=== PATIENT | male | born 1945 | race Caucasian/White ===

== ENCOUNTER → 2016-08-01 | Outpatient (CLI) | payer OTHER ==
[~2016-08-01] MED LIST: AMLO2.5T PO; ASCA500 PO; ASPEC81 PO; HYDR25TA5 PO; MULT-506 PO; NTRGSL/4 UT; PLV75 PO; ROSU40TA PO; TPRSR/100 PO; TRIA1SPR2 NAE; TRMCR515 TOP
[2016-08-01 12:42] LABS: BASO % 0.8 %; BASO ABS # 0.05 K/uL (0-0.2); COMPLETE YES; EOS % 6.7 %; HEMATOCRIT 45.2 % (42-52); IG% 0.3 %; LYMPH % 30.2 %; LYMPH ABS # 1.95 K/uL (1.2-3.4); MEAN CELL VOLUME 90.2 fL (80-100); MEAN CORPUSCULAR HEMOGLOBIN 29.5 pg (25-34); MEAN CORPUSCULAR HGB CONC 32.7 g/dl (32-36); MEAN PLATELET VOLUME 9.8 fL (7.4-10.4); MONO % 11.9 %; NEUT % 50.1 %; PLATELET COUNT 183 K/uL (130-400); RED BLOOD COUNT 5.01 M/uL (4.7-6.1); WHITE BLOOD COUNT 6.46 K/uL (4.8-10.8)
[2016-08-01 13:34] LABS: ALT/SGPT 33 U/L (12-78); AST/SGOT 20 U/L (15-37); BLOOD UREA NITROGEN 13 mg/dl (7-18); BUN/CREATININE RATIO 13.7 (10-20); CALCIUM 8.8 mg/dl (8.5-10.1); CARBON DIOXIDE 31 mmol/L (21-32); CHLORIDE 105 mmol/L (98-107); CREATININE 0.92 mg/dl (0.60-1.40); GLUCOSE 98 mg/dl (70-99); POTASSIUM 3.7 mmol/L (3.5-5.1); SODIUM 142 mmol/L (136-145)
[2016-08-01 13:37] LABS: ALB/GLOB RATIO 1.2 (0.9-2); ALKALINE PHOSPHATASE 61 U/L (45-117); CHOLESTEROL 161 mg/dl (0-200); CHOLESTEROL/HDL RATIO 3.7; HDL CHOLESTEROL 43 mg/dl; LDL CHOLESTEROL CALCULATED 74 mg/dl; TRIGLYCERIDES 218 mg/dl (0-150); VERY LOW DENSITY LIPOPROT CALC 44 mg/dl
--- NOTE | 2016-08-08 12:41 | CODING QUERY MEDICAL NECESSITY ---
SUPPORTING DIAGNOSIS NEEDED A supporting diagnosis is required for the test/procedure performed on this patient in order for us to be reimbursed by the patient's insurance. Please provide a supporting diagnosis for the following test/procedure listed below next to the test name along with your signature. *If there is no additional diagnosis for this patient that would support the following test/procedure please document that below next to the test/procedure. Test(s)/Procedure(s) that require a supporting diagnosis: DOS 08/01 * Vitamin D DIAGNOSIS: Provider Signature: Date: Thank you Luciana Clements [facility] Information Management Once completed, please kindly fax back to [phone] For questions please call [phone]
== END | disposition home or self-care (01) ==
LOC: C.LABPBG 10:22
PROVIDERS: ATTEND Internal Medicine Geriatric Medicine
DX: I10 Essential (primary) hypertension (principal); I25.10 Atherosclerotic heart disease of native coronary artery without angina pectoris; E78.5 Hyperlipidemia, unspecified

== ENCOUNTER → 2017-08-10 | Outpatient (CLI) | payer OTHER ==
[~2017-08-10] MED LIST changes: -ASPEC81 PO; +ASPI-320 PO
[2017-08-10 17:17] LABS: BASO % 0.4 %; BASO ABS # 0.03 K/uL (0-0.2); EOS % 4.9 %; EOS ABS # 0.34 K/uL (0-0.5); HEMATOCRIT 45.8 % (42-52); HEMOGLOBIN 15.3 g/dL (14.0-18.0); IG# 0.02 K/uL (0.00-0.02); LYMPH % 26.7 %; LYMPH ABS # 1.84 K/uL (1.2-3.4); MEAN CELL VOLUME 90.3 fL (80-100); MEAN CORPUSCULAR HEMOGLOBIN 30.2 pg (25-34); MEAN CORPUSCULAR HGB CONC 33.4 g/dl (32-36); MEAN PLATELET VOLUME 9.5 fL (7.4-10.4); MONO % 8.9 %; MONO ABS # 0.61 K/uL (0.11-0.59); NEUT % 58.8 %; NEUT ABS # 4.05 K/uL (1.4-6.5); PLATELET COUNT 174 K/uL (130-400); RED CELL DISTRIBUTION WIDTH CV 14.1 % (11.5-14.5); RED CELL DISTRIBUTION WIDTH SD 46.1 fL (36.4-46.3); WHITE BLOOD COUNT 6.89 K/uL (4.8-10.8)
[2017-08-10 17:40] LABS: BLOOD UREA NITROGEN 17 mg/dl (7-18); CREATININE 1.02 mg/dl (0.60-1.40); GLUCOSE 104 mg/dl (70-99)
[2017-08-10 17:41] LABS: ALBUMIN 4.2 gm/dl (3.4-5.0); ALT/SGPT 39 U/L (12-78); AST/SGOT 32 U/L (15-37); CALCIUM 9.1 mg/dl (8.5-10.1); CARBON DIOXIDE 30 mmol/L (21-32); CHOLESTEROL 140 mg/dl (0-200); POTASSIUM 3.7 mmol/L (3.5-5.1); SODIUM 139 mmol/L (136-145)
[2017-08-10 17:50] LABS: ALKALINE PHOSPHATASE 61 U/L (45-117); LDL CHOLESTEROL CALCULATED 65 mg/dl; TOTAL PROTEIN 7.7 gm/dl (6.4-8.2)
== END | disposition home or self-care (01) ==
LOC: C.LABPBG 12:08
PROVIDERS: ATTEND Internal Medicine Geriatric Medicine
DX: I10 Essential (primary) hypertension (principal); I25.10 Atherosclerotic heart disease of native coronary artery without angina pectoris; E78.5 Hyperlipidemia, unspecified

== ENCOUNTER 2021-11-21 08:50 | Inpatient (IN) ==
[2021-11-21] MEDS ORDERED: SODIUM CHLORIDE 0.9% 1000ML 1,000 ML IV ONE (09:19)
--- NOTE | 2021-11-21 09:20 | Emergency Department Note ---
Impression & Plan Febrile neutropenia, Pancytopenia, Severe thrombocytopenia ED Provider Note Name: ELIAZAR JOYCE Age: 76 Sex: M Arrives Via: Walk-In Informant: Patient, ED Provider: Rommel Queen MD Chief Complaint: Illness Impression: As per impressions above Medical Decision Makin-year-old gentleman with a history of hypertension, CAD, dyslipidemia who has had previous CABG and stenting arrives for evaluation of febrile illness. Patient with 10 days of illness including fevers, chills, weakness fatigue. He reportedly tested positive on a home COVID test by 4 days ago. Evaluation patient appears mildly dehydrated tired a bit tachycardic but other johnson appears well. Pressures are good. He is not in any way meningitic and is answering all questions without problem. Labs obtained along with a COVID swab. Chest x-ray is unremarkable. Labs returned with severe pancytopenia of low white count, low hemoglobin and thrombocytopenia. This is acutely new from June 2021. At this point patient has febrile neutropenia and thus blood cultures were obtained. He had already had lactic acid obtained. He was given empiric cefepime. Tickborne illness swabs were obtained and he has a initial report no evidence Babesia or anaplasmosis and his Lyme testing is negative here. Patient was given some initial IV fluids with improvement in how he is feeling. Patient had taken Tylenol prior to arrival. With the unusual findings and there was concern for tick exposure doxycycline was added to his antibiotics. Throughout his blood pressure remained stable and his initial lactic acid was normal. He has no abdominal pain, chest pain, urinary symptoms or any other concerning findings. There is no clear evidence of septic shock. I had multiple prolonged discussions with the [facility] hospitalist who requested I discussed with [place]. I discussed case at length with [facility] who have accepted the patient however they note there will be no beds until tomorrow. They did request that I start a transf usion of platelets along with getting B12 and folic acid testing. Further discussion with hospitalist and still uncomfortable bringing patient in here. Discussed this with our oncologist here who requested I attempt to get the patient to [place]. I discussed this with the patient and makes it clear he will not be going to [place] or [facility] and that he is fully understanding that he could have severe outcomes or even if he were to stay here and to get worse. At this point I further discussed with the oncologist here as well as the hospitalist here and the plan will be to bring in for monitoring. I have confirmed again with [facility] that and will be until tomorrow before we get a bed as well as I have confirmed that by admitting him here it well in no way change his place "in line" at [facility] while awaiting this bed. I do think this is the right thing to do as patient is a febrile neutropenic patient and keeping him in the ER with multiple ER docs seeing him every few hours and the multitude of sick patients in the area I think would be risky to leave him down here. I had many discussions with the patient and his throughout their stay keeping them abreast of the findings. It is unclear exactly where this is primarily just an acute leukemia or whether his possible COVID last week incited this event. Prior Medical Record and Triage/Nursing Notes reviewed by Me Additional history obtained from chart and Differentials:Viral syndrome, otitis, pharyngitis, pneumonia, influenza, meningitis, urinary tract infection, sepsis, bacteremia, as well as other pathologies. Vital Signs: reviewed and remarkable for fever Interventions: NSS bolus, 1 Unit Platelets, Cefepime 2gm iv, doxycycline 100mg iv, tylenol 1gm po Labs:Reviewed and remarkable for pancytopenia Imaging:X ray results are stated below per my interpretation: Chest: 1 view: No infiltrate, no effusion, normal cardiac border. Cardiac/Tele Monitoring: Cardiac Monitoring: An Order was placed for continuous cardiac monitoring. The monitor shows a rate of 80 with a normal sinus rhythm. Consults:Dr Cecy COMER Hospitalist, Dr Jeremie COMER Oncology, Dr Nicho blue [facility], Dr Emiliano You [facility] Plan: Disposition:Hospitalization pending transfer Condition: Good History of Present Illness:76 yr old male arrives for evaluation of illness. Patient notes that he is having worsening weakness and illness over the last 10 days. Became sick 10 days ago with fevers, chills, mild cough, body aches and fatigue. Worsening lack of appetite. Mild associated sore throat. Notes severe weakness at times when he gets up. Better with resting. States he has been eating well. Did test positive for COVID 4 days ago. This was a home test done by his . Denies any syncope, shortness of breath, chest pain, abdominal pain, back pain, urinary/bowel symptoms, leg swelling, rashes nor other symptoms. Worse with exertion better with rest. Used Tylenol this morning with some improvement. ROS: See above HPI for pertinent positives & negatives. A total of 10 systems reviewed and were otherwise negative. Past Medical History:See Below Past Surgical History:See Below Family History:See Below Social History:See Below Home Medications:See Below Allergies:See Below Vitals:Blood Pressure: 106/66, Pulse 102, RR 18, T 38.0C, O2 74% on RA Physical Exam: GENERAL: Patient is tired/dehydrated appearing and in mild distress. EYES: No scleral icterus, unremarkable pupils. ENT: Mucous membranes dry, no nasal congestion. NECK: No masses appreciated, nomeningismus, trachea is midline. RESPIRATORY: No dyspnea. Clear to auscultation and equal bilaterally. No wheeze, no rhonchi. CARDIOVASCULAR: Tachy.No murmurs, rubs, gallops appreciated. GASTROINTESTINAL: Abdomen soft, non-tender, no peritonitis.Bowel sounds positive.No masses appreciated. BACK: No midline tenderness, no CVA tenderness EXTREMITIES: Normal motion all extremities, no cyanosis, no edema. NEUROLOGIC: Alert and oriented, no acute motor or sensory deficits, no focal weakness, cranial nerves grossly intact. SKIN: No rash, no jaundice, no diaphoresis. PSYCH: Appropriate GCS: 15 ED Course: Times/Reassessments: Many repeat evaluations and patient is feeling better after some IV fluids. Critical Care: I have personally spent 90 minutes of critical care time in the direct management of this patient. Acute febrile neutropenia with diffuse pancytopenia requiring extensive discussions with many different providers. This was a life/limb threatening event. This 90 minutes is in excess of all separately billable procedures. Rommel Queen MD Past Med/Surg History Medical History Aortic stenosis Arteriosclerotic coronary artery disease Benign enlargement of prostate Carotid artery plaque Dyslipidemia Hypertension Past myocardial infarction Tubulovillous adenoma of colon Surgical History History of cardiac cath cath stent 1 first obtuse marginal branch, type bare metal cath stent 2 first saphenous vein graft, type drug-eluting History of colonoscopy History of coronary artery bypass graft x 3 History of hemorrhoidectomy S/P CABG x 3 Family History Brother Coronary heart disease 5 brothers Father Myocardial infarction Denies family history of Ovarian cancer Prostate cancer Breast cancer Colorectal cancer Lung disease Social History Smoking Status: Former smoker Tobacco Type: Cigarettes Age Started Using Tobacco: 14; Age Quit Using Tobacco: 21; packs per day: 1; Years Smoked: 7; Second Hand Exposure: No; Hx Alcohol Use: Yes Alcohol type: wine Alcohol Intake Frequency Comment: once a day Hx Substance Use: No Preferred Language: Syriac Communication Ability: Effective Visual Impairment: Limited Hearing Ability: Use of Hearing Aid Piece Meat 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 Required: No marital status: Current Living Situation: Spouse current occupational status: employed 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 How many Children do You have: 4 Feels Safe at Home: Yes Childhood Exposure to Second-Hand Smoke: No caffeine: Yes (cup of coffee in morning ) Dental Care, Regularly: No Physical Activity Frequency: Daily Seatbelt Use: always Sunscreen Use: Yes Allergies Allergies Allergy/AdvReac Type Severity Reaction Status Date / Time diphenhydramine AdvReac Severe ITCHING Verified 11/21/21 18:14 [From Benadryl] lisinopril AdvReac Mild FATIGUE Verified 11/21/21 18:14 losartan AdvReac Unknown FATIGUE, Verified 11/21/21 18:14 CHEST PAIN acetaminophen [From Percocet] AdvReac Confusion Verified 11/21/21 18:14 oxycodone [From Percocet] AdvReac Confusion Verified 11/21/21 18:14 Home Meds Home Medications Medication Instructions Recorded Confirmed ascorbic acid (vitamin C) 500 mg 500 mg PO DAILY 02/11/19 11/21/21 tablet aspirin 81 mg tablet,delayed 81 mg PO DAILY 02/11/19 11/21/21 release nitroglycerin 0.4 mg sublingual 0.4 mg sublingual Q5M PRN Chest 02/11/19 11/21/21 tablet Pain #1 tab clopidogrel 75 mg tablet 75 mg PO DAILY 11/21/21 11/21/21 multivitamin 1 tab PO DAILY 11/21/21 11/21/21 Previous Rx's Medication Instructions Recorded sildenafil 100 mg tablet 100 mg PO DAILY PRN sexual 11/08/20 activity #10 tabs amlodipine 10 mg tablet 10 mg PO DAILY #90 tabs 12/09/20 hydrochlorothiazide 25 mg tablet 25 mg PO DAILY #90 tabs 04/27/21 rosuvastatin 40 mg tablet 40 mg PO DAILY #90 tabs 05/31/21 metoprolol succinate 100 mg 150 mg PO DAILY #135 tabs 07/20/21 tablet,extended release 24 hr Results & Data (ED) Vital Signs Vital Signs - 24 hr 11/21/21 08:53 11/21/21 09:31 11/21/21 10:25 Temperature 38.0 C H Temperature Source Oral Pulse Rate 102 H Pulse Rate [Finger] 75 Pulse Rhythm [Finger] Respiratory Rate 18 18 Respiratory Depth Blood Pressure 106/66 Blood Pressure [Left Arm] 117/58 L Blood Pressure Mean 79 Blood Pressure Mean [Left Arm] 77 Pulse Oximetry 94 94 94 Oxygen Delivery Method Room Air Room Air Room Air Sepsis Recent Fever Within 48 Hours Yes Sepsis New/Unexplained Change in Mental Status No Sepsis Action Taken by Nursing No Action Required 11/21/21 12:54 11/21/21 13:57 11/21/21 14:51 Temperature Temperature Source Pulse Rate Pulse Rate [Finger] 79 84 87 Pulse Rhythm [Finger] Respiratory Rate 24 24 24 Respiratory Depth Blood Pressure Blood Pressure [Left Arm] 128/68 140/70 129/74 Blood Pressure Mean Blood Pressure Mean [Left Arm] 88 93 92 Pulse Oximetry 93 93 93 Oxygen Delivery Method Room Air Room Air Room Air Sepsis Recent Fever Within 48 Hours Sepsis New/Unexplained Change in Mental Status Sepsis Action Taken by Nursing 11/21/21 15:21 11/21/21 15:26 11/21/21 16:26 Temperature 38.2 C H 38.1 C H Temperature Source Oral Oral Pulse Rate 87 85 86 Pulse Rate [Finger] Pulse Rhythm [Finger] Respiratory Rate 25 H 25 H 16 Respiratory Depth Blood Pressure 128/65 128/65 121/71 Blood Pressure [Left Arm] Blood Pressure Mean 86 86 87 Blood Pressure Mean [Left Arm] Pulse Oximetry 94 93 95 Oxygen Delivery Method Sepsis Recent Fever Within 48 Hours Sepsis New/Unexplained Change in Mental Status Sepsis Action Taken by Nursing 11/21/21 16:27 11/21/21 18:43 08/08/22 19:38 Temperature 37.6 C H Temperature Source Oral Pulse Rate Pulse Rate [Finger] 85 69 Pulse Rhythm [Finger] Regular Regular Respiratory Rate 18 73 H 15 Respiratory Depth Normal Normal Normal Blood Pressure Blood Pressure [Left Arm] 125/65 Blood Pressure Mean Blood Pressure Mean [Left Arm] 85 Pulse Oximetry 100 91 Oxygen Delivery Method Room Air Room Air Sepsis Recent Fever Within 48 Hours Sepsis New/Unexplained Change in Mental Status Sepsis Action Taken by Nursing Laboratory Data Result diagrams: 11/21/21 09:30 11/21/21 09:30 Lab Results 11/21/21 11/21/21 11/21/21 Range/Units 09:30 09:30 09:30 WBC 0.76 L* (4.8-10.8) K/ul RBC 3.42 L (4.63-6.08) M/uL Hgb 10.5 L (14.0-18.0) g/dl Hct 30.2 L (40.1-51.0) % MCV 88.3 (80.0-100.0) fL MCH 30.7 (25.0-34.0) pg MCHC 34.8 (32.0-36.0) g/dL RDW Std Deviation 50.2 H (36.4-46.3) fL RDW Coeff of Marty 15.8 H (11.5-14.5) % Plt Count 8 L* (130-400) K/uL MPV 12.0 (9.4-12.4) fL Neutrophils % (Manual) 6 % Lymphocytes % (Manual) 83 % Monocytes % (Manual) 1 % Eosinophils % (Manual) 4 % Blast Cells % (Manual) 6 % Neutrophils # (Manual) 0.05 L (1.4-6.5) K/uL Total Absolute Neuts 0.05 L* (1.4-6.5) K/uL Lymphocytes # (Manual) 0.63 L (1.2-3.4) K/uL Total Abs Lymphocytes 0.63 L (1.2-3.4) K/uL Monocytes # (Manual) 0.01 L (0.24-0.82) K/uL Eosinophils # (Manual) 0.03 (0-0.50) K/uL Blast Cells # (Man) 0.05 H (0-0) K/uL Blood Smear Review PT (9.0-12.0) Seconds INR (0.9-1.1) Fibrinogen (184-400) mg/dl Sodium 134 L (136-145) mmol/L Potassium 4.1 (3.5-5.1) mmol/L Chloride 101 (98-107) mmol/L Carbon Dioxide 27 (21-32) mmol/L Anion Gap 6 (3-11) BUN 14 (6-23) mg/dl Creatinine 1.00 (0.6-1.4) mg/dl Est Cr Clr Drug Dosing 64.6 ml/min Est GFR ( Amer) 83.2 ml/min Est GFR (Non-Af Amer) 71.8 ml/min BUN/Creatinine Ratio 14.0 (10-20) Glucose 111 H (70-99(Fasting)) mg/dl Lactate 1.0 (0.4-2.0) mmol/L Calcium 8.6 (8.5-10.1) mg/dl Magnesium 2.2 (1.7-2.4) mg/dl Ferritin (8-388) ng/ml Total Bilirubin 1.3 H (0.2-1.0) mg/dl Direct Bilirubin 0.3 H (0-0.2) mg/dl AST 60 H (13-39) U/L ALT 28 (7-52) U/L Alkaline Phosphatase 47 (34-104) U/L Lactate Dehydrogenase (86-244) U/L Troponin I High Sens 9.6 (0-20) pg/ml Total Protein 6.7 (6.0-8.3) gm/dl Albumin 3.7 (3.4-5.0) gm/dl Vitamin B12 (180-914) pg/ml Folate (>5.38) ng/ml Procalcitonin (0-0.5) ng/ml Urine Color Urine Appearance (Clear) Urine pH (4.5-7.5) Ur Specific [place] (1.000-1.030) Urine Protein (Negative) Urine Glucose (UA) (Negative) Urine Ketones (Negative) Urine Blood (Negative) Urine Nitrite (Negative) Urine Bilirubin (Negative) Urine Urobilinogen (Negative) Ur Leukocyte Esterase (Negative) Urine WBC (Auto) (0-5) /hpf Urine RBC (Auto) (0-4) /hpf U Hyaline Cast (Auto) (0-5) /lpf U Epithel Cells (Auto) (0-5) /lpf Urine Bacteria (Auto) (Negative) Ur Renal Epithelial Cell Anaplasma Smear See Comment Babesia Smear Lyme Disease IgG Ab (Negative) Lyme Disease IgM Ab (Negative) SARS-CoV-2 (PCR) (Negative) SARS-CoV-2, RNA, NAAT (NEGATIVE) Blood Type Antibody Screen 11/21/21 11/21/21 11/21/21 Range/Units 09:30 09:30 09:30 WBC (4.8-10.8) K/ul RBC (4.63-6.08) M/uL Hgb (14.0-18.0) g/dl Hct (40.1-51.0) % MCV (80.0-100.0) fL MCH (25.0-34.0) pg MCHC (32.0-36.0) g/dL RDW Std Deviation (36.4-46.3) fL RDW Coeff of Marty (11.5-14.5) % Plt Count (130-400) K/uL MPV (9.4-12.4) fL Neutrophils % (Manual) % Lymphocytes % (Manual) % Monocytes % (Manual) % Eosinophils % (Manual) % Blast Cells % (Manual) % Neutrophils # (Manual) (1.4-6.5) K/uL Total Absolute Neuts (1.4-6.5) K/uL Lymphocytes # (Manual) (1.2-3.4) K/uL Total Abs Lymphocytes (1.2-3.4) K/uL Monocytes # (Manual) (0.24-0.82) K/uL Eosinophils # (Manual) (0-0.50) K/uL Blast Cells # (Man) (0-0) K/uL Blood Smear Review PT (9.0-12.0) Seconds INR (0.9-1.1) Fibrinogen (184-400) mg/dl Sodium (136-145) mmol/L Potassium (3.5-5.1) mmol/L Chloride (98-107) mmol/L Carbon Dioxide (21-32) mmol/L Anion Gap (3-11) BUN (6-23) mg/dl Creatinine (0.6-1.4) mg/dl Est Cr Clr Drug Dosing ml/min Est GFR ( Amer) ml/min Est GFR (Non-Af Amer) ml/min BUN/Creatinine Ratio (10-20) Glucose (70-99(Fasting)) mg/dl Lactate (0.4-2.0) mmol/L Calcium (8.5-10.1) mg/dl Magnesium (1.7-2.4) mg/dl Ferritin (8-388) ng/ml Total Bilirubin (0.2-1.0) mg/dl Direct Bilirubin (0-0.2) mg/dl AST (13-39) U/L ALT (7-52) U/L Alkaline Phosphatase (34-104) U/L Lactate Dehydrogenase (86-244) U/L Troponin I High Sens (0-20) pg/ml Total Protein (6.0-8.3) gm/dl Albumin (3.4-5.0) gm/dl Vitamin B12 (180-914) pg/ml Folate (>5.38) ng/ml Procalcitonin 0.34 (0-0.5) ng/ml Urine Color Dark Yellow Urine Appearance Clear (Clear) Urine pH 8.0 H (4.5-7.5) Ur Specific [place] 1.024 (1.000-1.030) Urine Protein 2+ H (Negative) Urine Glucose (UA) Negative (Negative) Urine Ketones Trace H (Negative) Urine Blood Negative (Negative) Urine Nitrite Negative (Negative) Urine Bilirubin Negative (Negative) Urine Urobilinogen Positive H (Negative) Ur Leukocyte Esterase Negative (Negative) Urine WBC (Auto) 1-5 (0-5) /hpf Urine RBC (Auto) 5-10 H (0-4) /hpf U Hyaline Cast (Auto) 1-5 (0-5) /lpf U Epithel Cells (Auto) >30 H (0-5) /lpf Urine Bacteria (Auto) Negative (Negative) Ur Renal Epithelial Cell Not Reportable Anaplasma Smear Babesia Smear Lyme Disease IgG Ab (Negative) Lyme Disease IgM Ab (Negative) SARS-CoV-2 (PCR) NEGATIVE (Negative) SARS-CoV-2, RNA, NAAT (NEGATIVE) Blood Type Antibody Screen 11/21/21 11/21/21 11/21/21 Range/Units 09:30 09:30 13:35 WBC (4.8-10.8) K/ul RBC (4.63-6.08) M/uL Hgb (14.0-18.0) g/dl Hct (40.1-51.0) % MCV (80.0-100.0) fL MCH (25.0-34.0) pg MCHC (32.0-36.0) g/dL RDW Std Deviation (36.4-46.3) fL RDW Coeff of Marty (11.5-14.5) % Plt Count (130-400) K/uL MPV (9.4-12.4) fL Neutrophils % (Manual) % Lymphocytes % (Manual) % Monocytes % (Manual) % Eosinophils % (Manual) % Blast Cells % (Manual) % Neutrophils # (Manual) (1.4-6.5) K/uL Total Absolute Neuts (1.4-6.5) K/uL Lymphocytes # (Manual) (1.2-3.4) K/uL Total Abs Lymphocytes (1.2-3.4) K/uL Monocytes # (Manual) (0.24-0.82) K/uL Eosinophils # (Manual) (0-0.50) K/uL Blast Cells # (Man) (0-0) K/uL Blood Smear Review PT (9.0-12.0) Seconds INR (0.9-1.1) Fibrinogen (184-400) mg/dl Sodium (136-145) mmol/L Potassium (3.5-5.1) mmol/L Chloride (98-107) mmol/L Carbon Dioxide (21-32) mmol/L Anion Gap (3-11) BUN (6-23) mg/dl Creatinine (0.6-1.4) mg/dl Est Cr Clr Drug Dosing ml/min Est GFR ( Amer) ml/min Est GFR (Non-Af Amer) ml/min BUN/Creatinine Ratio (10-20) Glucose (70-99(Fasting)) mg/dl Lactate (0.4-2.0) mmol/L Calcium (8.5-10.1) mg/dl Magnesium (1.7-2.4) mg/dl Ferritin (8-388) ng/ml Total Bilirubin (0.2-1.0) mg/dl Direct Bilirubin (0-0.2) mg/dl AST (13-39) U/L ALT (7-52) U/L Alkaline Phosphatase (34-104) U/L Lactate Dehydrogenase (86-244) U/L Troponin I High Sens (0-20) pg/ml Total Protein (6.0-8.3) gm/dl Albumin (3.4-5.0) gm/dl Vitamin B12 (180-914) pg/ml Folate (>5.38) ng/ml Procalcitonin (0-0.5) ng/ml Urine Color Urine Appearance (Clear) Urine pH (4.5-7.5) Ur Specific [place] (1.000-1.030) Urine Protein (Negative) Urine Glucose (UA) (Negative) Urine Ketones (Negative) Urine Blood (Negative) Urine Nitrite (Negative) Urine Bilirubin (Negative) Urine Urobilinogen (Negative) Ur Leukocyte Esterase (Negative) Urine WBC (Auto) (0-5) /hpf Urine RBC (Auto) (0-4) /hpf U Hyaline Cast (Auto) (0-5) /lpf U Epithel Cells (Auto) (0-5) /lpf Urine Bacteria (Auto) (Negative) Ur Renal Epithelial Cell Anaplasma Smear Cancelled Babesia Smear Lyme Disease IgG Ab Negative (Negative) Lyme Disease IgM Ab Negative (Negative) SARS-CoV-2 (PCR) (Negative) SARS-CoV-2, RNA, NAAT NEGATIVE (NEGATIVE) Blood Type Antibody Screen 11/21/21 11/21/21 11/21/21 Range/Units 13:51 13:51 13:51 WBC (4.8-10.8) K/ul RBC (4.63-6.08) M/uL Hgb (14.0-18.0) g/dl Hct (40.1-51.0) % MCV (80.0-100.0) fL MCH (25.0-34.0) pg MCHC (32.0-36.0) g/dL RDW Std Deviation (36.4-46.3) fL RDW Coeff of Marty (11.5-14.5) % Plt Count (130-400) K/uL MPV (9.4-12.4) fL Neutrophils % (Manual) % Lymphocytes % (Manual) % Monocytes % (Manual) % Eosinophils % (Manual) % Blast Cells % (Manual) % Neutrophils # (Manual) (1.4-6.5) K/uL Total Absolute Neuts (1.4-6.5) K/uL Lymphocytes # (Manual) (1.2-3.4) K/uL Total Abs Lymphocytes (1.2-3.4) K/uL Monocytes # (Manual) (0.24-0.82) K/uL Eosinophils # (Manual) (0-0.50) K/uL Blast Cells # (Man) (0-0) K/uL Blood Smear Review PT (9.0-12.0) Seconds INR (0.9-1.1) Fibrinogen (184-400) mg/dl Sodium (136-145) mmol/L Potassium (3.5-5.1) mmol/L Chloride (98-107) mmol/L Carbon Dioxide (21-32) mmol/L Anion Gap (3-11) BUN (6-23) mg/dl Creatinine (0.6-1.4) mg/dl Est Cr Clr Drug Dosing ml/min Est GFR ( Amer) ml/min Est GFR (Non-Af Amer) ml/min BUN/Creatinine Ratio (10-20) Glucose (70-99(Fasting)) mg/dl Lactate (0.4-2.0) mmol/L Calcium (8.5-10.1) mg/dl Magnesium (1.7-2.4) mg/dl Ferritin (8-388) ng/ml Total Bilirubin (0.2-1.0) mg/dl Direct Bilirubin (0-0.2) mg/dl AST (13-39) U/L ALT (7-52) U/L Alkaline Phosphatase (34-104) U/L Lactate Dehydrogenase (86-244) U/L Troponin I High Sens (0-20) pg/ml Total Protein (6.0-8.3) gm/dl Albumin (3.4-5.0) gm/dl Vitamin B12 167 L (180-914) pg/ml Folate > 22.30 (>5.38) ng/ml Procalcitonin (0-0.5) ng/ml Urine Color Urine Appearance (Clear) Urine pH (4.5-7.5) Ur Specific [place] (1.000-1.030) Urine Protein (Negative) Urine Glucose (UA) (Negative) Urine Ketones (Negative) Urine Blood (Negative) Urine Nitrite (Negative) Urine Bilirubin (Negative) Urine Urobilinogen (Negative) Ur Leukocyte Esterase (Negative) Urine WBC (Auto) (0-5) /hpf Urine RBC (Auto) (0-4) /hpf U Hyaline Cast (Auto) (0-5) /lpf U Epithel Cells (Auto) (0-5) /lpf Urine Bacteria (Auto) (Negative) Ur Renal Epithelial Cell Anaplasma Smear See Comment Babesia Smear See Comment Lyme Disease IgG Ab (Negative) Lyme Disease IgM Ab (Negative) SARS-CoV-2 (PCR) (Negative) SARS-CoV-2, RNA, NAAT (NEGATIVE) Blood Type A Positive Antibody Screen NEGATIVE 11/21/21 11/21/21 11/21/21 Range/Units 17:30 17:30 17:30 WBC (4.8-10.8) K/ul RBC (4.63-6.08) M/uL Hgb (14.0-18.0) g/dl Hct (40.1-51.0) % MCV (80.0-100.0) fL MCH (25.0-34.0) pg MCHC (32.0-36.0) g/dL RDW Std Deviation (36.4-46.3) fL RDW Coeff of Marty (11.5-14.5) % Plt Count (130-400) K/uL MPV (9.4-12.4) fL Neutrophils % (Manual) % Lymphocytes % (Manual) % Monocytes % (Manual) % Eosinophils % (Manual) % Blast Cells % (Manual) % Neutrophils # (Manual) (1.4-6.5) K/uL Total Absolute Neuts (1.4-6.5) K/uL Lymphocytes # (Manual) (1.2-3.4) K/uL Total Abs Lymphocytes (1.2-3.4) K/uL Monocytes # (Manual) (0.24-0.82) K/uL Eosinophils # (Manual) (0-0.50) K/uL Blast Cells # (Man) (0-0) K/uL Blood Smear Review PT 12.4 H (9.0-12.0) Seconds INR 1.2 H (0.9-1.1) Fibrinogen 235 (184-400) mg/dl Sodium (136-145) mmol/L Potassium (3.5-5.1) mmol/L Chloride (98-107) mmol/L Carbon Dioxide (21-32) mmol/L Anion Gap (3-11) BUN (6-23) mg/dl Creatinine (0.6-1.4) mg/dl Est Cr Clr Drug Dosing ml/min Est GFR ( Amer) ml/min Est GFR (Non-Af Amer) ml/min BUN/Creatinine Ratio (10-20) Glucose (70-99(Fasting)) mg/dl Lactate (0.4-2.0) mmol/L Calcium (8.5-10.1) mg/dl Magnesium (1.7-2.4) mg/dl Ferritin 5725.0 H (8-388) ng/ml Total Bilirubin (0.2-1.0) mg/dl Direct Bilirubin (0-0.2) mg/dl AST (13-39) U/L ALT (7-52) U/L Alkaline Phosphatase (34-104) U/L Lactate Dehydrogenase 759 H (86-244) U/L Troponin I High Sens (0-20) pg/ml Total Protein (6.0-8.3) gm/dl Albumin (3.4-5.0) gm/dl Vitamin B12 (180-914) pg/ml Folate (>5.38) ng/ml Procalcitonin (0-0.5) ng/ml Urine Color Urine Appearance (Clear) Urine pH (4.5-7.5) Ur Specific [place] (1.000-1.030) Urine Protein (Negative) Urine Glucose (UA) (Negative) Urine Ketones (Negative) Urine Blood (Negative) Urine Nitrite (Negative) Urine Bilirubin (Negative) Urine Urobilinogen (Negative) Ur Leukocyte Esterase (Negative) Urine WBC (Auto) (0-5) /hpf Urine RBC (Auto) (0-4) /hpf U Hyaline Cast (Auto) (0-5) /lpf U Epithel Cells (Auto) (0-5) /lpf Urine Bacteria (Auto) (Negative) Ur Renal Epithelial Cell Anaplasma Smear Babesia Smear Lyme Disease IgG Ab (Negative) Lyme Disease IgM Ab (Negative) SARS-CoV-2 (PCR) (Negative) SARS-CoV-2, RNA, NAAT (NEGATIVE) Blood Type Antibody Screen Administered Medications Cefepime HCl 2,000 mg/ Syringe 20 mls @ 5 mls/min IV Q8H [facility]; Protocol Stop: 11/23/21 18:59 Last Admin: 11/21/21 18:06 Dose: 5 mls/min Documented By: KAY Discontinued Medications Acetaminophen (Acetaminophen 500 Mg Tab) 1,000 mg PO NOW STA Stop: 11/21/21 17:39 Last Admin: 11/21/21 18:06 Dose: 1,000 mg Documented By: LEEANNAW Sodium Chloride (Nss 1000ml) 1,000 mls @ 999 mls/hr IV .Q1H1M ONE Stop: 11/21/21 10:19 Last Infusion: 11/21/21 10:26 Dose: 0 mls/hr Documented By: Admin: 11/21/21 09:35 Dose: 999 mls/hr Documented By: KRYSTAL Cefepime HCl (Maxipime) 2,000 mg in 20 mls @ 5 mls/min IV NOW STA; Protocol Stop: 11/21/21 10:50 Last Admin: 11/21/21 11:00 Dose: 5 mls/min Documented By: KRYSTAL Doxycycline Hyclate 100 mg/ (Dextrose) 110 mls @ 50 mls/hr IV NOW STA Stop: 11/21/21 14:53 Last Infusion: 11/21/21 17:40 Dose: 0 mls/hr Documented By: Admin: 11/21/21 13:56 Dose: 50 mls/hr Documented By: KRYSTAL Imaging Data Radiologist's Impression: Chest X-Ray 11/21/21 09:19 XR chest 1V portable CLINICAL HISTORY: cough fever x 10 days TECHNIQUE: Single frontal radiograph of the chest was obtained. Comparison: Comparison is made to chest radiograph 09/10/2006 FINDINGS: Median sternotomy wires are unchanged. The cardiomediastinal silhouette is normal. The lungs are clear. No evidence of pleural effusion or pneumothorax. IMPRESSION: No acute abnormalities and in particular no evidence of pneumonia. ACT 112: Negative or not required by law. Electronically signed by: Salinas Eduardo M.D. 11/21/2021 10:26 AM Discharge Plan Visit Data Chief Complaint: Fever Stated Complaint: FEVER ED Provider: Rommel Queen Discharge Problem: Febrile neutropenia, Pancytopenia, Severe thrombocytopenia Forms Stand Alone Forms: My [facility] Prescriptions Prescriptions: No Action sildenafil 100 mg tablet 100 mg PO DAILY PRN (Reason: sexual activity) Qty: 10 5RF Rx Instructions: administer 1/2-1 tablet 30 minutes to 4 hours before activity amlodipine 10 mg tablet 10 mg PO DAILY Qty: 90 3RF hydrochlorothiazide 25 mg tablet 25 mg PO DAILY Qty: 90 3RF rosuvastatin 40 mg tablet 40 mg PO DAILY Qty: 90 2RF metoprolol succinate 100 mg tablet extended release 24 hr 150 mg PO DAILY Qty: 135 3RF Rx Instructions: 1 & 1/2 tablet dose ascorbic acid (vitamin C) 500 mg tablet 500 mg PO DAILY aspirin 81 mg tablet,delayed release (DR/EC) 81 mg PO DAILY nitroglycerin 0.4 mg tablet, sublingual 0.4 mg SL Q5M PRN (Reason: Chest Pain) Qty: 1 clopidogrel 75 mg tablet 75 mg PO DAILY multivitamin Tablet 1 tab PO DAILY Referrals Referrals: Melinda Wu MD [Primary Care Provider] -
[2021-11-21 10:07] LABS: Appearance Urine Clear (Clear); Bacteria Urine Automated Negative (Negative); Bilirubin Urine Negative (Negative); Blood Urine Negative (Negative); Color Urine Dark Yellow; Epithelial Cell Urine Auto >30 /lpf (0-5); Glucose Urine UA Negative (Negative); Ketones Urine Trace (Negative); Leukocyte Esterase Urine Negative (Negative); Nitrite Urine Negative (Negative); Specific Gravity Urine 1.024 (1.000-1.030); Urobilinogen Urine Positive (Negative)
[2021-11-21 10:08] LABS: Protein Urine 2+ (Negative)
[2021-11-21 10:23] LABS: Hematocrit (blood only) 30.2 % (40.1-51.0); Hemoglobin 10.5 g/dl (14.0-18.0); Mean Corpuscular Hemoglobin 30.7 pg (25.0-34.0); Mean Corpuscular Hgb Conc 34.8 g/dL (32.0-36.0); Mean Corpuscular Volume 88.3 fL (80.0-100.0); Platelet Count 8 K/uL (130-400); RDW Coefficient of Variation 15.8 % (11.5-14.5); RDW Standard Deviation 50.2 fL (36.4-46.3); Red Blood Count 3.42 M/uL (4.63-6.08); White Blood Count 0.76 K/ul (4.8-10.8)
--- NOTE | 2021-11-21 10:27 | XRay Report ---
XR chest 1V portable CLINICAL HISTORY: cough fever x 10 days TECHNIQUE: Single frontal radiograph of the chest was obtained. Comparison: Comparison is made to chest radiograph 09/10/2006 FINDINGS: Median sternotomy wires are unchanged. The cardiomediastinal silhouette is normal. The lungs are ritcihe r. No evidence of pleural effusion or pneumothorax. IMPRESSION: No acute abnormalities and in particular no evidence of pneumonia. ACT 112: Negative or not required by law. Electronically signed by: Salinas Eduardo M.D. 11/21/2021 10:26 AM
[2021-11-21 10:32] LABS: Troponin I High Sensitivity 9.6 pg/ml (0-20)
[2021-11-21 10:40] LABS: Albumin Level 3.7 gm/dl (3.4-5.0); Bilirubin Direct 0.3 mg/dl (0-0.2); Bilirubin,Total 1.3 mg/dl (0.2-1.0); Calcium 8.6 mg/dl (8.5-10.1); Creatinine Clr Calc Pharmacy 64.6 ml/min; Est GFR (African American) 83.2 ml/min; Est GFR (Non-African American) 71.8 ml/min; Magnesium 2.2 mg/dl (1.7-2.4); Potassium 4.1 mmol/L (3.5-5.1); Total Protein 6.7 gm/dl (6.0-8.3)
[2021-11-21] MEDS ORDERED: CEFEPIME 2,000 MG/20 ML VIAL IV STA (10:47)
[2021-11-21 11:13] LABS: ALC (manual) 0.63 K/uL (1.2-3.4); ANC (manual) 0.05 K/uL (1.4-6.5); Blast # (manual) 0.05 K/uL (0-0); Blast Cells % (manual) 6 %; Eosinophils # (manual) 0.03 K/uL (0-0.50); Eosinophils % (manual) 4 %; Lymphocytes # (manual) 0.63 K/uL (1.2-3.4); Lymphocytes % (manual) 83 %; Monocytes # (manual) 0.01 K/uL (0.24-0.82); Monocytes % (manual) 1 %; Neutrophils # (manual) 0.05 K/uL (1.4-6.5); Neutrophils % (manual) 6 %
[2021-11-21 11:24] LABS: Lyme Ab IgG w/WB Rflx Negative (Negative); Lyme Ab IgM w/WB Rflx Negative (Negative)
[2021-11-21] MEDS ORDERED: DOXYCYCLINE HYCLATE 100 MG in DEXTROSE 5% 100 ML IV STA (12:42)
[2021-11-21] MEDS ORDERED: SODIUM CHLORIDE 0.9% 250 ML IV PRN (13:28)
[2021-11-21 14:48] LABS: Folate (Folic Acid) > 22.30 ng/ml (>5.38)
[2021-11-21 14:49] LABS: Vitamin B12 167 pg/ml (180-914)
[2021-11-21] MEDS ORDERED: ACETAMINOPHEN 500 MG TAB PO STA (17:38)
--- NOTE | 2021-11-21 17:47 | History & Physical Report ---
Date of Service November 21, 2021 Assessment & Plan (1) Febrile neutropenia: Plan: Febrile illness with onset of pancytopenia. WBC 0.76, with neutrophil count of 0.5. - DDX: Bacterial vs. Viral illness vs. other - Continue Cefepime and Doxycycline empiric for neutropenic fever and while awaiting babesiosis to return - MRSA nares pending - Blood cultures pending - Urine culture pending- UA negative - notable for bilirubin - Follow clinical course - no neurological changes or symptoms, without seizure - Hemodynamically stable - PCT negative and Lacatate negative (2) Pancytopenia: Plan: Pancytopenia acute onset with severe thrombocytopenia - DDX: Leukemia vs. Bacterial vs. Viral vs. tick borne vs. Other - as above - pending transfer for acute workup and evaluation for acute leukemia (3) Severe thrombocytopenia: Plan: Acute onset of thrombocytopenia - platelets 8 was normal back in June - No schistocytes - making TTP unlikely - Is without neurological symptoms - No renal dysfunction - organ dysfunction of AST, t.BILI elevated - Elevated LFTs - LDH- 799 - T. Bili 1.3 with direct bili 0.3 - PT/INR/- 12.4/1.2 - Fibrinogen 235 - likely not related to DIC - Follow cultures - Neurological exam q 4 hour- if declination obtain CT scan non-contrast eval for spontaneous intracranial bleed Transfuse 1 unit of Platelets with goal ~20 (4) Aortic stenosis: Plan: Mild to Moderate based of ECHO 2019- with mean gradient 22.5mm/hg - stable is following with [facility] as well (5) Arteriosclerotic coronary artery disease: Plan: CABG x3 with PCI in 2015 - will hold on asa/plavix (6) Carotid artery plaque: Plan: Bilateral carotid disease <50% bilateral 2018 - as above hold ASA/PLavis - Hold BB until hemodynamics are proven stable (7) Dyslipidemia: Plan: Continue statin (8) Hypertension: Plan: Hold amlodipine and BB until hemodynamics stable History of Present Illness Primary Care Provider: Melinda Wu MD 76 YOM with medical history of: CAD (3v CABG with PCI JEAN CARLOS 07/30), HLD, HTN, Aortic Stenosis, Carotid artery disease (<50% bilaterally 2018), COVID 19. Patient comes to the EMD today for continued complaints of dyspnea, fatigue, loss of appetite. The patient reports that he had tested positive for COVID about 12 days ago. He has really not felt right since then, attributing the above symptoms to his COVID test. He endorses that he has had a decrease in appetite prior to COVID with an unintentional weight loss also associated with early safety. He denies any change to his bowels or bladder function. 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 He does not recall any ticks or other insect bites. The patient had routine blood work completed in the [facility] to include, blood culture and PCT. His original lab work came back showing pancytopenia with platelet count at 8 as well as WBC count of 0.76 with HGB 10.5. His LFT are elevated as well as bilirubin. He has no other evidence of organ dysfunction. The patient had tick borne labs sent to include babesiosis and anaplasmosis- initially negative. His peripheral smear was without schistocytes but was with concern of possible acute leukemia. He was also febrile on presentation- he did have blood cultures performed and was started on Cefepime and Doxycyline. Hospitalist was consulted for admission at presentation. The case was discussed by attending Dr. Sam with Haematology PA-C diamond driller. Transfer for acute work up and supportive care was recommended. [facility] haematology (Dr. Dotson ? spedavid) did discuss the case with Dr. Queen and has been accepted under Dr. Cmumings. The Haematology diamond driller for [facility] Physician did speak with the [facility] Physician Dr. Martines with recommendation to identify other tertiary care centers in the area. The patient declined transfer to either [facility] system or [facility] system. He understands the limitation to our facility in further work up and supportive care. Patient pending transfer to [facility] when bed becomes available COVID test on admission is: NEGATIVE x2 on admission Allergies Allergy/AdvReac Type Severity Reaction Status Date / Time diphenhydramine AdvReac Severe ITCHING Verified 11/21/21 18:14 [From Benadryl] lisinopril AdvReac Mild FATIGUE Verified 11/21/21 18:14 losartan AdvReac Unknown FATIGUE, Verified 11/21/21 18:14 CHEST PAIN acetaminophen [From Percocet] AdvReac Confusion Verified 11/21/21 18:14 oxycodone [From Percocet] AdvReac Confusion Verified 11/21/21 18:14 Home Medications Medication Instructions Recorded Confirmed Type ascorbic acid (vitamin C) 500 mg 500 mg PO DAILY 02/11/19 11/21/21 History tablet aspirin 81 mg tablet,delayed 81 mg PO DAILY 02/11/19 11/21/21 History release nitroglycerin 0.4 mg sublingual 0.4 mg sublingual Q5M PRN Chest 02/11/19 11/21/21 History tablet Pain #1 tab sildenafil 100 mg tablet 100 mg PO DAILY PRN sexual 11/08/20 11/21/21 Rx activity #10 tabs amlodipine 10 mg tablet 10 mg PO DAILY #90 tabs 12/09/20 11/21/21 Rx hydrochlorothiazide 25 mg tablet 25 mg PO DAILY #90 tabs 04/27/21 11/21/21 Rx rosuvastatin 40 mg tablet 40 mg PO DAILY #90 tabs 05/31/21 11/21/21 Rx metoprolol succinate 100 mg 150 mg PO DAILY #135 tabs 07/20/21 11/21/21 Rx tablet,extended release 24 hr clopidogrel 75 mg tablet 75 mg PO DAILY 11/21/21 11/21/21 History multivitamin 1 tab PO DAILY 11/21/21 11/21/21 History Past Med/Surg History Medical History Aortic stenosis Arteriosclerotic coronary artery disease Benign enlargement of prostate Carotid artery plaque Dyslipidemia Hypertension Past myocardial infarction Tubulovillous adenoma of colon Surgical History History of cardiac cath cath stent 1 first obtuse marginal branch, type bare metal cath stent 2 first saphenous vein graft, type drug-eluting History of colonoscopy History of coronary artery bypass graft x 3 History of hemorrhoidectomy S/P CABG x 3 Family History Brother Coronary heart disease 5 brothers Father Myocardial infarction Denies family history of Ovarian cancer Prostate cancer Breast cancer Colorectal cancer Lung disease Social History Smoking Status: Never smoker Tobacco Type: Cigarettes Age Started Using Tobacco: 14; Age Quit Using Tobacco: 21; packs per day: 1; Years Smoked: 7; Second Hand Exposure: No; Hx Alcohol Use: No Hx Substance Use: No Preferred Language: Citizen Of [place] Communication Ability: Effective Visual Impairment: Limited Hearing Ability: Use of Hearing Aid Strawhat Sizer Required: No Beliefs That Will Affect Care: None marital status: Current Living Situation: Spouse current occupational status: employed 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 How many Children do You have: 4 Other Information That Helps Us Care for You: No Feels Safe at Home: Yes Safety Concerns: Feels Safe At This Time Childhood Exposure to Second-Hand Smoke: No caffeine: Yes (cup of coffee in morning ) Dental Care, Regularly: No Physical Activity Frequency: Daily Seatbelt Use: always Sunscreen Use: Yes Assistive Devices: Denture - Upper, Denture - Lower, Glasses and Hearing Aid - Bilateral Review of Systems Review of Systems: REVIEW OF SYSTEMS: Constitutional: (+) fever, fatigue, sweats or chills Eyes: No diplopia, no worsening or blurred vision ENT: normal hearing, no trouble swallowing Respiratory: No cough, sputum, dyspnea at rest or on exertion Cardiovascular: No chest pain, tightness or palpitations Abdomen: No pain, nausea, vomiting, diarrhea or constipation Musculoskeletal: (+) joint pain, no calf pain, swelling Neurologic: No weakness, numbness/tingling, or balance problems Psychiatric: No anxiety or depression Skin: No rash or itch Physical Exam Physical Exam: PHYSICAL EXAM: General: awake, alert, no apparent distress Head: Normocephalic, atraumatic ENT: PERRLA, EOMI, no pharyngeal exudate, mucous membranes moist Neuro: AAO x 3, speech clear and appropriate, strength intact bilaterally 5/5, sensation intact and equal all extremities and dermatomes, no pronator drift Chest: equal rise and fall of the chest, no accessory muscle use, no heaves or thrills, Clear to auscultation, on room air, Cardiac: Regular rate and rhythm, telemetry reviewed, skin warm dry, cap refill <3 seconds, peripheral pulses +2 no JVD, Grade III systolic murmur. : Spontaneously voiding, no pain, no CVA tenderness, Extremities: Normal inspection, no peripheral edema or erythema, calfs nontender to palpation Psych: Normal mood and affect Skin: no rash or erythema, no bruising Results & Data Results & Data ([facility]) Vital Signs (Past 12 Hours) Vital Signs Temp Pulse Pulse Resp BP BP Pulse Ox 11/21/21 16:27 85 18 100 11/21/21 16:26 38.1 C H 86 16 121/71 95 11/21/21 15:26 85 25 H 128/65 93 11/21/21 15:21 38.2 C H 87 25 H 128/65 94 11/21/21 14:51 87 24 129/74 93 11/21/21 13:57 84 24 140/70 93 11/21/21 12:54 79 24 128/68 93 11/21/21 10:25 75 18 117/58 L 94 11/21/21 09:31 94 11/21/21 08:53 38.0 C H 102 H 18 106/66 94 O2 Del Method 11/21/21 16:27 Room Air 11/21/21 16:26 11/21/21 15:26 11/21/21 15:21 11/21/21 14:51 Room Air 11/21/21 13:57 Room Air 11/21/21 12:54 Room Air 11/21/21 10:25 Room Air 11/21/21 09:31 Room Air 11/21/21 08:53 Room Air Laboratory Results Abnormal lab results 11/21/21 11/21/21 11/21/21 Range/Units 09:30 09:30 09:30 WBC 0.76 L* (4.8-10.8) K/ul RBC 3.42 L (4.63-6.08) M/uL Hgb 10.5 L (14.0-18.0) g/dl Hct 30.2 L (40.1-51.0) % RDW Std Deviation 50.2 H (36.4-46.3) fL RDW Coeff of Marty 15.8 H (11.5-14.5) % Plt Count 8 L* (130-400) K/uL Neutrophils # (Manual) 0.05 L (1.4-6.5) K/uL Total Absolute Neuts 0.05 L* (1.4-6.5) K/uL Lymphocytes # (Manual) 0.63 L (1.2-3.4) K/uL Total Abs Lymphocytes 0.63 L (1.2-3.4) K/uL Monocytes # (Manual) 0.01 L (0.24-0.82) K/uL Blast Cells # (Man) 0.05 H (0-0) K/uL Sodium 134 L (136-145) mmol/L Glucose 111 H (70-99(Fasting)) mg/dl Total Bilirubin 1.3 H (0.2-1.0) mg/dl Direct Bilirubin 0.3 H (0-0.2) mg/dl AST 60 H (13-39) U/L Vitamin B12 (180-914) pg/ml Urine pH 8.0 H (4.5-7.5) Urine Protein 2+ H (Negative) Urine Ketones Trace H (Negative) Urine Urobilinogen Positive H (Negative) Urine RBC (Auto) 5-10 H (0-4) /hpf U Epithel Cells (Auto) >30 H (0-5) /lpf 11/21/21 Range/Units 13:51 WBC (4.8-10.8) K/ul RBC (4.63-6.08) M/uL Hgb (14.0-18.0) g/dl Hct (40.1-51.0) % RDW Std Deviation (36.4-46.3) fL RDW Coeff of Marty (11.5-14.5) % Plt Count (130-400) K/uL Neutrophils # (Manual) (1.4-6.5) K/uL Total Absolute Neuts (1.4-6.5) K/uL Lymphocytes # (Manual) (1.2-3.4) K/uL Total Abs Lymphocytes (1.2-3.4) K/uL Monocytes # (Manual) (0.24-0.82) K/uL Blast Cells # (Man) (0-0) K/uL Sodium (136-145) mmol/L Glucose (70-99(Fasting)) mg/dl Total Bilirubin (0.2-1.0) mg/dl Direct Bilirubin (0-0.2) mg/dl AST (13-39) U/L Vitamin B12 167 L (180-914) pg/ml Urine pH (4.5-7.5) Urine Protein (Negative) Urine Ketones (Negative) Urine Urobilinogen (Negative) Urine RBC (Auto) (0-4) /hpf U Epithel Cells (Auto) (0-5) /lpf Diagnostic Findings Chest X-Ray 11/21/21 09:19 XR chest 1V portable CLINICAL HISTORY: cough fever x 10 days TECHNIQUE: Single frontal radiograph of the chest was obtained. Comparison: Comparison is made to chest radiograph 09/10/2006 FINDINGS: Median sternotomy wires are unchanged. The cardiomediastinal silhouette is normal. The lungs are clear. No evidence of pleural effusion or pneumothorax. IMPRESSION: No acute abnormalities and in particular no evidence of pneumonia. ACT 112: Negative or not required by law. Electronically signed by: Salinas Eduardo M.D. 11/21/2021 10:26 AM Medications Administered Home Medications ascorbic acid (vitamin C) 500 mg tablet 500 mg PO DAILY 02/11/19 [History Confirmed 07/07/21] aspirin 81 mg tablet,delayed release 81 mg PO DAILY 02/11/19 [History Confirmed 07/07/21] multivitamin [Multivitamins FC] PO DAILY 02/11/19 [History Confirmed 07/07/21] nitroglycerin 0.4 mg sublingual tablet 0.4 mg sublingual Q5M PRN #1 tab 02/11/19 [History Confirmed 07/07/21] triamcinolone acetonide 0.025 % topical cream 1 applic topical BID PRN rash #15 grams 02/16/20 [Rx Confirmed 07/07/21] sildenafil 100 mg tablet 100 mg PO DAILY PRN sexual activity #10 tabs 11/08/20 [Rx Confirmed 07/07/21] amlodipine 10 mg tablet 10 mg PO DAILY #90 tabs 12/09/20 [Rx Confirmed 07/07/21] hydrochlorothiazide 25 mg tablet 25 mg PO DAILY #90 tabs 04/27/21 [Rx Confirmed 07/07/21] clopidogrel 75 mg tablet See Rx Instructions .Route .COMPLEX #90 tabs 05/18/21 [Rx Confirmed 07/07/21] rosuvastatin 40 mg tablet 40 mg PO DAILY #90 tabs 05/31/21 [Rx Confirmed 07/07/21] metoprolol succinate 100 mg tablet,extended release 24 hr 150 mg PO DAILY #135 tabs 07/20/21 [Rx] Active Medications Sodium Chloride (Nss) 250 mls @ 15 mls/hr IV .[id number] PRN PRN Reason: For Transfusion Stop: 11/21/21 23:28 Cefepime HCl 2,000 mg/ Syringe 20 mls @ 5 mls/min IV Q8H CHIKI; Protocol Stop: 11/23/21 18:59 Discontinued Medications Sodium Chloride (Nss 1000ml) 1,000 mls @ 999 mls/hr IV .Q1H1M ONE Stop: 11/21/21 10:19 Last Infusion: 11/21/21 10:26 Dose: 0 mls/hr Documented By: Admin: 11/21/21 09:35 Dose: 999 mls/hr Documented By: KRYSTAL Cefepime HCl (Maxipime) 2,000 mg in 20 mls @ 5 mls/min IV NOW STA; Protocol Stop: 11/21/21 10:50 Last Admin: 11/21/21 11:00 Dose: 5 mls/min Documented By: KRYSTAL Doxycycline Hyclate 100 mg/ (Dextrose) 110 mls @ 50 mls/hr IV NOW STA Stop: 11/21/21 14:53 Last Infusion: 11/21/21 17:40 Dose: 0 mls/hr Documented By: Admin: 11/21/21 13:56 Dose: 50 mls/hr Documented By: KRYSTAL ECG Additional Comments: pending on admission - last baseline ECG 2015 Code Status & VTE Plan Code Status CODE: DNR/DNI VTE: SCDs, ambulation VTE Prophylaxis Plan VTE Prophylaxis will be ordered: Yes Supervising Physician Co-Signing Physician Notes Discussed case with ER physician and nurse practitioner, agree with his note above. Patient complaining of some mild weakness, on evaluation was found to be pancytopenic which is a new finding. Since consideration that this is a new leukemia/lymphoma and suggested patient should be transferred for more definitive diagnosis. Patient was excepted to [facility] but bed may not be available for next 24 hours. I did suggest finding alternative facility after discussion with oncology service. Patient stated to the ER physician that he refused to consider [facility] or [facility]. Therefore, we will admit the patient here while he waits for [facility] transport. We will consult oncology. I do agree with ER transfusing platelets secondary to profound thrombocytopenia. PG Care Time/CCT Total # of Minutes Spent Total Time Spent with Patient: Total time spent is greater than 50% in coordination of care (as documented) at patient's floor/unit and/or counseling patient: Coding Level of Care Code 06422 Initial Inpt Care Lvl 3 Diagnoses Febrile neutropenia D70.9; R50.81 Pancytopenia D61.818 Severe thrombocytopenia D69.6 Aortic stenosis I35.0 Arteriosclerotic coronary artery disease I25.10 Carotid artery plaque I65.29 Dyslipidemia E78.5 Hypertension I10
[2021-11-21 18:01] LABS: Fibrinogen 235 mg/dl (184-400); INR 1.2 (0.9-1.1); Prothrombin Time 12.4 Seconds (9.0-12.0)
[2021-11-21] MEDS: CEFEPIME 2,000 MG in SYRINGE 0 ML IV SCH (18:06)
[2021-11-21] MEDS ORDERED: CEFEPIME 2,000 MG in SYRINGE 0 ML IV SCH (21:49)
[2021-11-21] MEDS ORDERED: ONDANSETRON INJ 2 MG/ML 2 ML VIAL IV PRN (21:49)
[2021-11-22] MEDS: ACETAMINOPHEN 325 MG TAB PO PRN ×2 (00:31→16:17)
[2021-11-22] MEDS: DOXYCYCLINE HYCLATE 100 MG in DEXTROSE 5% 100 ML IV SCH ×2 (02:00→14:35)
[2021-11-22] MEDS: CEFEPIME 2,000 MG in SYRINGE 0 ML IV SCH ×2 (03:40→12:33)
[2021-11-22 06:01] LABS: BUN Creatinine Ratio 16.5 (10-20); Calcium 8.1 mg/dl (8.5-10.1); Creatinine Clr Calc Pharmacy 75.8 ml/min; Est GFR (African American) 96.7 ml/min; Est GFR (Non-African American) 83.5 ml/min; Magnesium 2.2 mg/dl (1.7-2.4); Potassium 3.7 mmol/L (3.5-5.1)
[2021-11-22 06:48] LABS: Hematocrit (blood only) 27.6 % (40.1-51.0); Hemoglobin 9.8 g/dl (14.0-18.0); Mean Corpuscular Hemoglobin 31.3 pg (25.0-34.0); Mean Corpuscular Hgb Conc 35.5 g/dL (32.0-36.0); Mean Corpuscular Volume 88.2 fL (80.0-100.0); Mean Platelet Volume 9.9 fL (9.4-12.4); Platelet Count 13 K/uL (130-400); RDW Coefficient of Variation 15.9 % (11.5-14.5); Red Blood Count 3.13 M/uL (4.63-6.08); White Blood Count 0.82 K/ul (4.8-10.8)
[2021-11-22 07:57] LABS: ANC (manual) 0.04 K/uL (1.4-6.5); Blast # (manual) 0.02 K/uL (0-0); Blast Cells % (manual) 3 %; Eosinophils # (manual) 0.03 K/uL (0-0.50); Eosinophils % (manual) 4 %; Lymphocytes % (manual) 85 %; Monocytes # (manual) 0.02 K/uL (0.24-0.82); Monocytes % (manual) 2 %; Neutrophils # (manual) 0.04 K/uL (1.4-6.5); Neutrophils % (manual) 5 %
[2021-11-22] MEDS ORDERED: hydroCHLOROthiazide 25 MG TAB PO SCH (09:00)
[2021-11-22] MEDS ORDERED: ROSUVASTATIN CALCIUM 20 MG TAB PO SCH (09:00)
[2021-11-22] MEDS ORDERED: CYANOCOBALAMIN 1000 MCG/ML VIAL IM SCH (11:00)
[2021-11-22] MEDS ORDERED: OPTIRAY 320 100ml IV ONE (11:42)
--- NOTE | 2021-11-22 12:02 | CT Scan Report ---
CT chest diagnostic w con CLINICAL HISTORY: fever,neutropenia TECHNIQUE: Multidetector row helical CT of the chest was performed with intravenous contrast. Coronal and sagittal reformations were obtained. Automated dose lowering techniques and/or adjustment accord ing to patient size were utilized for this exam. CT DOSE: 821.40 mGy.cm Comparison: None available at the time of this dictation. FINDINGS: Lungs and pleura: Normal. Heart and pericardium: Heart size is normal. No pericardial effusion. Vessels: Severe atherosclerotic changes in the aorta and coronary arteries. Mediastinum and karyna: Subcentimeter lymph nodes are seen. A subcarinal node measures 17 mm in diamete r. Chest wall and lower neck: Unremarkable. Abdomen: A right renal cyst is seen. A splenule is noted. Bones: Degenerative changes in the thoracic spine. IMPRESSION: No evidence of pneumonia. Mediastinal lymph nodes may be reactive, however follow-up to resolution is recommended. ACT 112: Negative or not required by law. Electronically signed by: Salinas Eduardo M.D. 11/22/2021 12:01 PM
[2021-11-22 12:05] LABS: Partial Thromboplastin Ratio 1.2; Partial Thromboplastin Time 32.2 Seconds (21.0-31.0)
--- NOTE | 2021-11-22 12:48 | CT Scan Report ---
ABDOMEN AND PELVIS CT WITH IV CONTRAST HISTORY: Acute fever fever,neutropenia TECHNIQUE: Multiaxial CT images of the abdomen and pelvis were performed following the IV administrat ion of 94 cc of Optiray, A dose lowering technique was utilized adhering to the principles of ALARA. COMPARISON STUDY: Chest CT of same day FINDINGS: Prior median sternotomy. Cardiomegaly with CABG extensive [place] coronary artery calcificat ions. Partially calcified mediastinal and hilar lymph nodes with a 1.4 cm subcarinal lymph node. Find ings may represent prior granulomatous disease. No pneumatosis or pneumoperitoneum. The study is degr aded by respiratory motion artifact. The spleen is mildly enlarged, 13.4 cm in length. Unremarkable pancreas, gallbladder, adrenal glands and liver. Patent portal vein. Mild nonspecific bilateral perinephric stranding. 4.0 cm cyst within the superior pole right kidney. 2.8 cm cyst in the inferior pole right kidney. There are a few subcentimeter hypodensities of the lef t kidney which are too small to characterize, likely representing additional cysts. No renal or urete ral calculi or hydronephrosis. Mild prostamegaly. Partial distention of the urinary bladder. Atherosc lerosis of the aorta with saccular renal images with dilation measuring up to 3.0 x 3.4 cm. No aneury sm rupture. Nonspecific mildly enlarged periaortic lymph nodes measure up to 1.7 x 1.2 cm. A 12 mm pr ecaval lymph nodes present on image 154. 1.5 cm periportal lymph node is present on image 140. No bowel obstruction. A few small bowel loops measure within the upper limits of normal at 3 cm. Scat tered small bowel air-fluid levels are favored be physiologic. Colonic diverticulosis. No bowel wall thickening. Hyperattenuating foci within the proximal appendiceal lumen may represent appendicolith v ersus retained enteric contrast. No ascites or mesenteric inflammation. Unremarkable soft tissues. De generative changes of the spine, pelvis and hips. IMPRESSION: 1. No bowel obstruction or bowel wall thickening. 2. Scattered small bowel air-fluid levels with a few loops measuring within the upper limits of [place] l, likely physiologic. A nonspecific enteritis could appear similarly. 3. Nonspecific mediastinal and abdominal adenopathy. Attention at follow-up recommended. 4. 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 No rupture. 5. Colonic diverticulosis. 6. Additional findings as above. ACT 112: Negative or not required by law. The above report was generated using voice recognition software. It may contain grammatical, syntax o r spelling errors. Electronically signed by: Garcia Vaca M.D. 11/22/2021 12:47 PM
--- NOTE | 2021-11-22 15:40 | Discharge Summary ---
Date of Service November 22, 2021 Admission HPI Per Admitting Provider 76 YOM with medical history of: CAD (3v CABG with PCI JEAN CARLOS 07/30), HLD, HTN, Aortic Stenosis, Carotid artery disease (<50% bilaterally 2018), COVID 19. Patient comes to the [facility] today for continued complaints of dyspnea, fatigue, loss of appetite. The patient reports that he had tested positive for COVID about 12 days ago. He has really not felt right since then, attributing the above symptoms to his COVID test. He endorses that he has had a decrease in appetite prior to COVID with an unintentional weight loss also associated with early safety. He denies any change to his bowels or bladder function. 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 He does not recall any ticks or other insect bites. The patient had routine blood work completed in the [facility] to include, blood culture and PCT. His original lab work came back showing pancytopenia with platelet count at 8 as well as WBC count of 0.76 with HGB 10.5. His LFT are elevated as well as bilirubin. He has no other evidence of organ dysfunction. The patient had tick borne labs sent to include babesiosis and anaplasmosis- initially negative. His peripheral smear was without schistocytes but was with concern of possible acute leukemia. He was also febrile on presentation- he did have blood cultures performed and was started on Cefepime and Doxycyline. Hospitalist was consulted for admission at presentation. The case was discussed by attending Dr. Sam with Haematology PA-[facility] faculty i on call medical assistant. Transfer for acute work up and supportive care was recommended. [facility] haematology (Dr. Dotson ? phil) did discuss the case with Dr. Queen and has been accepted under Dr. Cummings. The Haematology faculty i on call medical assistant for [facility] Physician did speak with the [facility] Physician Dr. Martines with recommendation to identify other tertiary care centers in the area. The patient declined transfer to either [facility] system or [facility] system. He understands the limitation to our facility in further work up and supportive care. Patient pending transfer to [facility] when bed becomes available COVID test on admission is: NEGATIVE x2 on admission Principal Diagnosis Pancytopenia, febrile neutropenia B12 deficiency Discharge Exam Vitals reviewed Gen: [AAOx3, NAD] HEENT: [anicteric sclerae, EOMI, oropharynx clear, neck supple] CV: [RRR 2/6 JENNIFER at RUSB, nl S1S2] Pulm: [CTAB no wcr] Abd: [+BS soft NT ND no masses or hernias] Ext: [no edema, 2+ DP pulses] Skin: [no rashes, warm/dry] Neuro: [full strength throughout] Discharge Data Allergies Allergy/AdvReac Type Severity Reaction Status Date / Time diphenhydramine AdvReac Severe ITCHING Verified 11/21/21 18:14 [From Benadryl] lisinopril AdvReac Mild FATIGUE Verified 11/21/21 18:14 losartan AdvReac Unknown FATIGUE, Verified 11/21/21 18:14 CHEST PAIN acetaminophen [From Percocet] AdvReac Confusion Verified 11/21/21 18:14 oxycodone [From Percocet] AdvReac Confusion Verified 11/21/21 18:14 Consultations 11/21/21 12:42 ED Decision to Admit Stat Ordered Studies 11/22/21 10:53 CT abd pelvis IV con only Urgent CT chest diagnostic w con Urgent Hospital Course (1) Febrile neutropenia: Febrile illness with onset of pancytopenia. WBC 0.76, with neutrophil count of 0.5. With recent COVID infection at home but did have weight loss of 22 lbs prior to that which he attributed to eating less. reports he had loss of appetite for a while Continues to have fevers here despite being on broad spectrum abx with Cefepime and doxy Lyme, Anaplasmosis, Babesiosis all negative here COVID negative no PNA, UA no infection No other symptoms other than fatigue and fevers. No meningitis signs BCxs no growth at time of discharge CT chest/abd/pel obtained and shows mild mediastinal LA, mild splenomegaly, but otherwise nothing acute With pancytopenia, concern for leukemia, 6% blasts on smear. Possible post-COVID phenomenon? - Hemodynamically stable - PCT negative and Lacatate negative transfer to [facility] for further workup. Will likely need bone marrow aspirate/bx follow CBC, transfuse as needed continue broad spectrum abx continue to follow BCxs after discharge (2) Pancytopenia: as above (3) Severe thrombocytopenia: Acute onset of thrombocytopenia - platelets 8 on admission and was normal back in June - No schistocytes - making TTP unlikely - Is without neurological symptoms - No renal dysfunction - organ dysfunction of AST, t.BILI elevated - Elevated LFTs - LDH- 799, uric acid negative - T. Bili 1.3 with direct bili 0.3 - PT/INR/- 12.4/1.2 - Fibrinogen 235 - likely not related to DIC - Follow cultures transfused platelets on admission no evidence of bleeding from anywhere (4) Aortic stenosis: Mild to Moderate based of ECHO 2019- with mean gradient 22.5mm/hg - stable is following with [place] as well (5) Arteriosclerotic coronary artery disease: CABG x3 with PCI in 2015 - will hold on asa/plavix (6) Carotid artery plaque: Bilateral carotid disease <50% bilateral 2017 - as above hold ASA/PLavix - Hold BB until hemodynamics are proven stable (7) Dyslipidemia: Continue statin (8) Hypertension: Hold amlodipine and BB until hemodynamics stable Plan Dispo-transfer to [facility] Total Time Total Time Spent Total Time Spent (In Minutes): 45 min Discharge Plan Discharge Items Patient Disposition: Transfer Acute Care Hospital Reason For Visit: PANCYTOPENIA Discharge Diagnosis: Febrile neutropenia, pancytopenia Condition on Discharge: Serious Activity: As commented below Lifting: None Bathing: No limitations Exercise/Sports: Rest today Non-emergency contact: Primary Care Provider Call non-emergency contact if: you have any medication questions and your symptoms worsen Follow-up/Referrals: Melinda Wu MD [Primary Care Provider] - Diet: Heart Healthy Addtl Attending Provider Instructions: transferred to [facility] Pending Studies at Discharge: Yes (Blood cultures) Stand-Alone Forms: My [facility] Skilled Items Patient informed of condition?: Yes DNR: Yes Discharge Level of Care: Other Communicable Disease: No Discharge Prognosis: Stable Lines: Peripheral IV Urinary Catheter: No Medications and DC Order Prescriptions: New cyanocobalamin (vitamin B-12) 1,000 mcg/mL Solution 1,000 mcg IM .qmonth Qty: 10 0RF Continued sildenafil 100 mg tablet 100 mg PO DAILY PRN (Reason: sexual activity) Qty: 10 5RF Rx Instructions: administer 1/2-1 tablet 30 minutes to 4 hours before activity amlodipine 10 mg tablet 10 mg PO DAILY Qty: 90 3RF hydrochlorothiazide 25 mg tablet 25 mg PO DAILY Qty: 90 3RF rosuvastatin 40 mg tablet 40 mg PO DAILY Qty: 90 2RF metoprolol succinate 100 mg tablet extended release 24 hr 150 mg PO DAILY Qty: 135 3RF Rx Instructions: 1 & 1/2 tablet dose ascorbic acid (vitamin C) 500 mg tablet 500 mg PO DAILY nitroglycerin 0.4 mg tablet, sublingual 0.4 mg SL Q5M PRN (Reason: Chest Pain) Qty: 1 multivitamin Tablet 1 tab PO DAILY Discontinued aspirin 81 mg tablet,delayed release (DR/EC) 81 mg PO DAILY clopidogrel 75 mg tablet 75 mg PO DAILY Discharge Orders: Discharge Order (Routine); Ordered 11/22/21 Ordered By: Denice Patel Admission Data Admit Date/Time: 11/21/21 17:26 Attending Provider: Denice Patel Admit Provider: Slava Sam Primary Care Provider: Melinda Wu Other Providers: Slava Sam Coding Level of Care Code D/C DAY MANAGEMENT >30 MINS Diagnoses Febrile neutropenia D70.9; R50.81 Pancytopenia D61.818 Severe thrombocytopenia D69.6 Aortic stenosis I35.0 Arteriosclerotic coronary artery disease I25.10 Carotid artery plaque I65.29 Dyslipidemia E78.5 Hypertension I10
--- NOTE | 2021-11-23 05:58 | Electrocardiogram Report ---
Test Reason : Blood Pressure : / mmHG Vent. Rate : 070 BPM Atrial Rate : 070 BPM P-R Int : 174 ms QRS Dur : 156 ms QT Int : 472 ms P-R-T Axes : -28 -47 -15 degrees QTc Int : 509 ms Normal sinus rhythm Right bundle branch block Left anterior fascicular block Bifascicular block Abnormal ECG When compared with ECG of 30-JUL-2015 11:06, No significant change Confirmed by Laith Lacy ([id number]) on 11/23/2021 5:58:19 AM Referred By: REFERRED SELF Confirmed By:Laith Lacy
[2021-11-25 09:26] LABS: Babesia microti DNA Not Detected (Not Detected)
== END 2021-11-22 17:00 | disposition short-term general hospital (02) | DRG 809 ==
LOC: ED 08:50 → SUATTDRO 17:26 → 1E 17:26

== ENCOUNTER 2021-12-12 10:35 | Inpatient (IN) ==
[2021-12-12] MEDS ORDERED: SODIUM CHLORIDE 0.9% 500 ML IV STA (10:49)
--- NOTE | 2021-12-12 11:01 | Emergency Department Note ---
Impression & Plan Anemia ADMIT ED Provider Note HPI: The patient is a 76-year-old gentleman with history of coronary artery disease, status post CABG,recent diagnosis of AML on chemotherapy, presents the emergency department chief complaint of an episode of diaphoresis and presyncope. Patient was recently admitted as an inpatient at [facility] in [place], [place], where he was diagnosed with AML following a visit for pancytopenia. Patient was his outpatient appointment today at [facility] and had an episode of presyncope. On arrival here to the ED the patient appears well, he denies any current complaints, he tells me that he did feel as if he was going to pass out earlier and he states that he was very sweaty and uncomfortable at the time. Patient denies any chest pain or shortness of breath, he is saturating well on room air on my initial presentation states he is feeling improved. ROS: -Neuro: Presyncopal episode *10 point review systems was conducted and is otherwise negative unless stated above *Outpatient medications and allergy history reviewed PE: General: Alert, NAD HEENT: Normocephalic, atraumatic Eyes: Extraocular eye movement is intact, no scleral erythema Pulmonary: Clear to auscultation bilaterally, no wheezing Cardio: Regular rate and rhythm GI: Abdomen is soft, nontender : No suprapubic tenderness MSK: No evidence of trauma or malformation of the extremities, no edema Skin: No evidence of rash Neuro: Alert, no focal deficits Psychiatric: Cooperative general claims agent: - An order was placed for continuous cardiac monitoring - Patient was noted to be in sinus rhythm with a rate of 80 EKG: Rate: 74 Rhythm: Normal sinus rhythm Intervals: QRS 140 ms, QTC 41 ms, otherwise within normal limits ST changes: No ST elevation Time: 1046 Medical Decision Making: She presented to the emergency department after presyncopal episode, this is in the setting of a recent admission at [facility] in [place], [place], where he was diagnosed with AML. Patient is started on outpatient chemotherapy, he was at his appointment today and had a presyncopal event. On arrival here to the ED the patient appears improved, denies any chest pain or shortness of breath. IV was established, lab work obtained, patient was placed on wood flooring specialist, lab work shows anemia at 6.7, troponin is negative. EKG does not show any ischemic changes. I suspect that the patient's anemia is the source of his weakness. His discharge hemoglobin was 7.3 upon review of records, I did discuss the patient's presentation with on-call hematology/oncology at [facility] in [place], Dr. Miner, who is familiar with the patient, recommended transfusion here at our hospital and admission observation, at this time the patient can remain at [facility] unless he spikes a fever at which point she would like him transferred to [facility] in [place]. Patient is thrombocytopenia is actually slightly improved from discharge levels at 9, today he is a 20. Denies any recent bleeding. Patient is noted to be leukopenic however he does not have a fever today. He is currently on oral antibiotics and antifungals as well as antivirals which will be continued as an inpatient. Patient is in agreement to this and states his preference to stay here as opposed to being transferred tonight. I did discuss the above with the on-call hospitalist, Dr. Patel, who accepted the patient to a monitored bed for further management. Of note, there is delay in the patient's transfusion secondary to antibodies. * CRITICAL CARE TIME: 60 min -Generalized weakness and presyncope with hemoglobin less than 7.0, requiring packed red blood cell transfusion, time spent at the bedside, discussion with subspecialty consultants including hematology/oncology, arrangement of admission Diagnosis: 1. Anemia 2. Presyncope 3. AML 4. Thrombocytopenia Disposition: ADMIT Atif Ramires DO Emergency Medicine Past Med/Surg History Medical History AML (acute myeloblastic leukemia) Aortic stenosis Arteriosclerotic coronary artery disease Benign enlargement of prostate Carotid artery plaque Dyslipidemia Hypertension Past myocardial infarction Tubulovillous adenoma of colon Surgical History History of cardiac cath cath stent 1 first obtuse marginal branch, type bare metal cath stent 2 first saphenous vein graft, type drug-eluting History of colonoscopy History of coronary artery bypass graft x 3 History of hemorrhoidectomy S/P CABG x 3 Family History Brother Coronary heart disease 5 brothers Father Myocardial infarction Denies family history of Ovarian cancer Prostate cancer Breast cancer Colorectal cancer Lung disease Social History Smoking Status: Former smoker Tobacco Type: Cigarettes Age Started Using Tobacco: 14; Age Quit Using Tobacco: 21; packs per day: 1; Years Smoked: 7; Second Hand Exposure: No; Hx Alcohol Use: No Hx Substance Use: No Preferred Language: Portuguese Communication Ability: Effective Visual Impairment: Limited Hearing Ability: Use of Hearing Aid Rib Bender Required: No Beliefs That Will Affect Care: None marital status: Current Living Situation: Spouse current occupational status: employed 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 How many Children do You have: 4 Feels Safe at Home: Yes Childhood Exposure to Second-Hand Smoke: No caffeine: Yes (cup of coffee in morning ) Dental Care, Regularly: No Physical Activity Frequency: Daily Seatbelt Use: always Sunscreen Use: Yes Assistive Devices: None Allergies Allergies Allergy/AdvReac Type Severity Reaction Status Date / Time diphenhydramine AdvReac Severe ITCHING Verified 11/21/21 18:14 [From Benadryl] lisinopril AdvReac Mild FATIGUE Verified 11/21/21 18:14 losartan AdvReac Unknown FATIGUE, Verified 11/21/21 18:14 CHEST PAIN acetaminophen [From Percocet] AdvReac Confusion Verified 11/21/21 18:14 oxycodone [From Percocet] AdvReac Confusion Verified 11/21/21 18:14 Home Meds Home Medications Medication Instructions Recorded Confirmed ascorbic acid (vitamin C) 500 mg 500 mg PO BID 02/11/19 12/12/21 tablet nitroglycerin 0.4 mg sublingual 0.4 mg sublingual Q5M PRN Chest 02/11/19 11/21/21 tablet Pain #1 tab acyclovir 400 mg tablet 400 mg PO .AM &HS 12/12/21 12/12/21 allopurinol 300 mg tablet 300 mg PO QAM 12/12/21 12/12/21 amlodipine 2.5 mg tablet 2.5 mg PO QAM 12/12/21 12/12/21 cyanocobalamin (vitamin B-12) 1,000 mcg PO QAM 12/12/21 12/12/21 1,000 mcg capsule levofloxacin 500 mg tablet 500 mg PO QAM 12/12/21 12/12/21 metoprolol succinate 100 mg 100 mg PO QAM 12/12/21 12/12/21 tablet,extended release 24 hr ondansetron 4 mg disintegrating 4 mg PO Q6H PRN Nausea 12/12/21 12/12/21 tablet polyethylene glycol 3350 17 gram 17 g PO DAILY PRN Constipation 12/12/21 12/12/21 oral powder packet sildenafil 50 mg tablet (Viagra) 50 mg PO DAILY PRN Sexual Activity 12/12/21 12/12/21 venetoclax 100 mg tablet 100 mg PO QAM 12/12/21 12/12/21 (Venclexta) voriconazole 200 mg tablet 200 mg PO BID 12/12/21 12/12/21 Previous Rx's Medication Instructions Recorded rosuvastatin 40 mg tablet 40 mg PO DAILY #90 tabs 05/31/21 Results & Data (ED) Vital Signs Vital Signs - 24 hr 12/12/21 10:40 12/12/21 12:28 12/12/21 12:48 Temperature 36.8 C Temperature Source Oral Pulse Rate 72 77 Pulse Rate [Finger] 78 Pulse Rhythm Regular Pulse Strength Normal Respiratory Rate 16 20 20 Respiratory Effort / Characteristics Non-Labored Spontaneous Respiratory Depth Normal Respiratory Pattern Regular Blood Pressure 111/66 118/64 Blood Pressure [Right Arm] 125/60 Blood Pressure Mean 81 82 Blood Pressure Mean [Right Arm] 81 Blood Pressure Position Sitting Pulse Oximetry 95 99 95 Oxygen Delivery Method Room Air Sepsis Recent Fever Within 48 Hours No Sepsis New/Unexplained Change in Mental Status No Sepsis Action Taken by Nursing No Action Required 12/12/21 15:12 Temperature Temperature Source Pulse Rate Pulse Rate [Finger] 85 Pulse Rhythm Pulse Strength Respiratory Rate 18 Respiratory Effort / Characteristics Respiratory Depth Respiratory Pattern Blood Pressure Blood Pressure [Right Arm] 115/57 L Blood Pressure Mean Blood Pressure Mean [Right Arm] 76 Blood Pressure Position Pulse Oximetry 95 Oxygen Delivery Method Sepsis Recent Fever Within 48 Hours Sepsis New/Unexplained Change in Mental Status Sepsis Action Taken by Nursing Laboratory Data Result diagrams: 12/12/21 10:50 12/12/21 10:50 Lab Results 12/12/21 12/12/21 12/12/21 Range/Units 10:44 10:50 10:50 WBC 0.26 L* (4.8-10.8) K/ul RBC 2.21 L (4.63-6.08) M/uL Hgb 6.7 L* (14.0-18.0) g/dl Hct 19.0 L* (40.1-51.0) % MCV 86.0 (80.0-100.0) fL MCH 30.3 (25.0-34.0) pg MCHC 35.3 (32.0-36.0) g/dL RDW Std Deviation 45.1 (36.4-46.3) fL RDW Coeff of Marty 14.3 (11.5-14.5) % Plt Count 20 L* (130-400) K/uL MPV 10.4 (9.4-12.4) fL Immature Gran % (Auto) Cancelled Neut % (Auto) Cancelled Lymph % (Auto) Cancelled Schuyler % (Auto) Cancelled Eos % (Auto) Cancelled Baso % (Auto) Cancelled Neut # (Auto) Cancelled Lymph # (Auto) Cancelled Schuyler # (Auto) Cancelled Eos # (Auto) Cancelled Baso # (Auto) Cancelled Immature Gran # (Auto) Cancelled Neutrophils % (Manual) Cancelled Band Neutrophils % Cancelled Lymphocytes % (Manual) Cancelled Prolymphocyte % Cancelled Reactive Lymphs % (Man) Cancelled Monocytes % (Manual) Cancelled Eosinophils % (Manual) Cancelled Basophils % (Manual) Cancelled Metamyelocytes % (Man) Cancelled Myelocytes % (Man) Cancelled Promyelocytes % (Man) Cancelled Blast Cells % (Manual) Cancelled Plasma Cell % (Manual) Cancelled Other Cells % Cancelled Nucleated RBC % Cancelled Neutrophils # (Manual) Cancelled Band Neutrophils # Cancelled Total Absolute Neuts Cancelled Lymphocytes # (Manual) Cancelled Prolymphocyte # Cancelled Reactive Lymphs # Cancelled Total Abs Lymphocytes Cancelled Monocytes # (Manual) Cancelled Eosinophils # (Manual) Cancelled Basophils # (Manual) Cancelled Metamyelocytes # (Man) Cancelled Myelocytes # (Manual) Cancelled Promyelocytes # (Man) Cancelled Blast Cells # (Man) Cancelled Plasma Cell # (Manual) Cancelled Other Cells # Cancelled Nucleated RBCs # (Man) Cancelled Hypersegmented Neuts Cancelled Hyposegmented Neuts Cancelled Hypogranular Neuts Cancelled Large Granular Lymphs Cancelled # Lrg Granular Lymphs Cancelled Hairy Cells Cancelled Smudge Cells Cancelled Toxic Granulation Cancelled Toxic Vacuolation Cancelled Dohle Bodies Cancelled Alyssa Rods Cancelled Hypogranular Platelets Cancelled Clumped Platelets Cancelled Giant Platelets Cancelled Platelet Satelliting Cancelled RBC Morphology Cancelled Polychromasia Cancelled Hypochromasia Cancelled Poikilocytosis Cancelled Basophilic Stippling Cancelled Anisocytosis Cancelled Microcytosis Cancelled Macrocytosis Cancelled Spherocytes Cancelled Pappenheimer Bodies Cancelled Sickle Cells Cancelled Target Cells Cancelled Tear Drop Cells Cancelled Ovalocytes Cancelled Stomatocytes Cancelled [place] Bodies Cancelled Echinocytes Cancelled Acanthocytes (Spur) Cancelled Rouleaux Cancelled RBC Agglutinates Cancelled Schistocytes Cancelled Sezary Cell Cancelled PT 11.4 (9.0-12.0) Seconds INR 1.1 (0.9-1.1) APTT 24.1 (21.0-31.0) Seconds PTT Ratio 0.9 Sodium (136-145) mmol/L Potassium (3.5-5.1) mmol/L Chloride (98-107) mmol/L Carbon Dioxide (21-32) mmol/L Anion Gap (3-11) BUN (6-23) mg/dl Creatinine (0.6-1.4) mg/dl Est Cr Clr Drug Dosing ml/min Est GFR ( Amer) ml/min Est GFR (Non-Af Amer) ml/min BUN/Creatinine Ratio (10-20) Glucose (70-99(Fasting)) mg/dl Calcium (8.5-10.1) mg/dl Total Bilirubin (0.2-1.0) mg/dl AST (13-39) U/L ALT (7-52) U/L Alkaline Phosphatase (34-104) U/L Troponin I High Sens (0-20) pg/ml Total Protein (6.0-8.3) gm/dl Albumin (3.4-5.0) gm/dl Globulin (2.5-4.0) gm/dl Albumin/Globulin Ratio (0.9-2) Lipase (11-82) U/L Urine Color Urine Appearance (Clear) Urine pH (4.5-7.5) Ur Specific Huntington (1.000-1.030) Urine Protein (Negative) Urine Glucose (UA) (Negative) Urine Ketones (Negative) Urine Blood (Negative) Urine Nitrite (Negative) Urine Bilirubin (Negative) Urine Urobilinogen (Negative) Ur Leukocyte Esterase (Negative) SARS-CoV-2, RNA, NAAT (NEGATIVE) Blood Parasites ID Cancelled Blood Type A Positive Antibody Screen POSITIVE A Antibody Identification Anti-M Antibody ID Comment Antigen Identification M Antigen - NEGATIVE Direct Antiglob Test Negative (Negative) CHAPARRO (IgG-AHG) Neg (Negative) CHAPARRO, Polyspecific Neg (Negative) CHAPARRO C3b, C3d 5 Min Neg (Negative) Crossmatch See Detail 12/12/21 12/12/21 12/12/21 Range/Units 10:50 13:54 16:30 WBC (4.8-10.8) K/ul RBC (4.63-6.08) M/uL Hgb (14.0-18.0) g/dl Hct (40.1-51.0) % MCV (80.0-100.0) fL MCH (25.0-34.0) pg MCHC (32.0-36.0) g/dL RDW Std Deviation (36.4-46.3) fL RDW Coeff of Marty (11.5-14.5) % Plt Count (130-400) K/uL MPV (9.4-12.4) fL Immature Gran % (Auto) Neut % (Auto) Lymph % (Auto) Schuyler % (Auto) Eos % (Auto) Baso % (Auto) Neut # (Auto) Lymph # (Auto) Schuyler # (Auto) Eos # (Auto) Baso # (Auto) Immature Gran # (Auto) Neutrophils % (Manual) Band Neutrophils % Lymphocytes % (Manual) Prolymphocyte % Reactive Lymphs % (Man) Monocytes % (Manual) Eosinophils % (Manual) Basophils % (Manual) Metamyelocytes % (Man) Myelocytes % (Man) Promyelocytes % (Man) Blast Cells % (Manual) Plasma Cell % (Manual) Other Cells % Nucleated RBC % Neutrophils # (Manual) Band Neutrophils # Total Absolute Neuts Lymphocytes # (Manual) Prolymphocyte # Reactive Lymphs # Total Abs Lymphocytes Monocytes # (Manual) Eosinophils # (Manual) Basophils # (Manual) Metamyelocytes # (Man) Myelocytes # (Manual) Promyelocytes # (Man) Blast Cells # (Man) Plasma Cell # (Manual) Other Cells # Nucleated RBCs # (Man) Hypersegmented Neuts Hyposegmented Neuts Hypogranular Neuts Large Granular Lymphs # Lrg Granular Lymphs Hairy Cells Smudge Cells Toxic Granulation Toxic Vacuolation Dohle Bodies Alyssa Rods Hypogranular Platelets Clumped Platelets Giant Platelets Platelet Satelliting RBC Morphology Polychromasia Hypochromasia Poikilocytosis Basophilic Stippling Anisocytosis Microcytosis Macrocytosis Spherocytes Pappenheimer Bodies Sickle Cells Target Cells Tear Drop Cells Ovalocytes Stomatocytes [place] Bodies Echinocytes Acanthocytes (Spur) Rouleaux RBC Agglutinates Schistocytes Sezary Cell PT (9.0-12.0) Seconds INR (0.9-1.1) APTT (21.0-31.0) Seconds PTT Ratio Sodium 135 L (136-145) mmol/L Potassium 4.1 (3.5-5.1) mmol/L Chloride 105 (98-107) mmol/L Carbon Dioxide 24 (21-32) mmol/L Anion Gap 6 (3-11) BUN 15 (6-23) mg/dl Creatinine 0.83 (0.6-1.4) mg/dl Est Cr Clr Drug Dosing 71.0 ml/min Est GFR ( Amer) 97.7 ml/min Est GFR (Non-Af Amer) 84.3 ml/min BUN/Creatinine Ratio 18.1 (10-20) Glucose 105 H (70-99(Fasting)) mg/dl Calcium 8.9 (8.5-10.1) mg/dl Total Bilirubin 0.6 (0.2-1.0) mg/dl AST 18 (13-39) U/L ALT 9 (7-52) U/L Alkaline Phosphatase 68 (34-104) U/L Troponin I High Sens 8.3 (0-20) pg/ml Total Protein 6.9 (6.0-8.3) gm/dl Albumin 3.5 (3.4-5.0) gm/dl Globulin 3.4 (2.5-4.0) gm/dl Albumin/Globulin Ratio 1.0 (0.9-2) Lipase 14 (11-82) U/L Urine Color Yellow Urine Appearance Clear (Clear) Urine pH 5.5 (4.5-7.5) Ur Specific [place] 1.017 (1.000-1.030) Urine Protein Negative (Negative) Urine Glucose (UA) Negative (Negative) Urine Ketones Negative (Negative) Urine Blood Negative (Negative) Urine Nitrite Negative (Negative) Urine Bilirubin Negative (Negative) Urine Urobilinogen Negative (Negative) Ur Leukocyte Esterase Negative (Negative) SARS-CoV-2, RNA, NAAT NEGATIVE (NEGATIVE) Blood Parasites ID Blood Type Antibody Screen Antibody Identification Antibody ID Comment Antigen Identification Direct Antiglob Test (Negative) CHAPARRO (IgG-AHG) (Negative) CHAPARRO, Polyspecific (Negative) CHAPARRO C3b, C3d 5 Min (Negative) Crossmatch Administered Medications Discontinued Medications Sodium Chloride (Nss) 500 mls @ 999 mls/hr IV .Q31M STA Stop: 12/12/21 11:19 Last Admin: 12/12/21 11:14 Dose: 999 mls/hr Documented By: [facility] [employer] Data Radiologist's Impression: Chest X-Ray 12/12/21 10:50 XR chest 1V portable HISTORY: Atypical chest pain with shortness of breath. COMPARISON: Chest 11/21/2021. FINDINGS: The cardiac silhouette is normal in size. There are poststernotomy changes and calcifications within the aortic knob. No new focal lung consolidations to suggest pneumonia. No evidence for pulmonary edema. No pleural effusions. No pneumothorax. IMPRESSION: No significant change compared to the prior study. No acute process. ACT 112: Negative or not required by law. Electronically signed by: Zafar Anne M.D. 12/12/2021 11:[address] 12/12/21 10:59 CT OF THE HEAD WITHOUT CONTRAST CLINICAL HISTORY: Syncope. COMPARISON STUDY: No previous studies for comparison. CT DOSE: 687.98 mGy.cm TECHNIQUE: Helical axial images of the head were obtained without IV contrast. Automated exposure control was utilized for the study. A dose lowering technique was utilized adhering to the principles of ALARA. FINDINGS: No acute intracranial hemorrhage, midline shift or mass effect is present. Moderate atrophy is noted. The ventricular system is unremarkable. The basal cisterns are patent. No extra-axial collections are present. There are no findings to suggest acute dural sinus thrombosis or acute territorial infarct. No significant calvarial abnormalities are present. Visualized portions of the sinuses and mastoid air cells are clear. IMPRESSION: No acute intracranial findings. ACT 112: Negative or not required by law. Electronically signed by: Carlos Ozuna M.D. 12/12/2021 11:44 AM Discharge Plan Visit Data Chief Complaint: Syncope ED Provider: Atif Ramires Discharge Problem: Anemia Patient Disposition: Admitted As Inpatient Forms Stand Alone Forms: My [facility] Prescriptions Prescriptions: No Action rosuvastatin 40 mg tablet 40 mg PO DAILY Qty: 90 2RF ascorbic acid (vitamin C) 500 mg tablet 500 mg PO BID nitroglycerin 0.4 mg tablet, sublingual 0.4 mg SL Q5M PRN (Reason: Chest Pain) Qty: 1 acyclovir 400 mg tablet 400 mg PO .AM &HS allopurinol 300 mg tablet 300 mg PO QAM amlodipine 2.5 mg tablet 2.5 mg PO QAM levofloxacin 500 mg tablet 500 mg PO QAM metoprolol succinate 100 mg tablet extended release 24 hr 100 mg PO QAM polyethylene glycol 3350 17 gram Powder In Packet 17 g PO DAILY PRN (Reason: Constipation) cyanocobalamin (vitamin B-12) 1,000 mcg Capsule 1,000 mcg PO QAM voriconazole 200 mg tablet 200 mg PO BID Venclexta 100 mg tablet 100 mg PO QAM ondansetron 4 mg Tablet,Disintegrating 4 mg PO Q6H PRN (Reason: Nausea) sildenafil [Viagra] 50 mg Tablet 50 mg PO DAILY PRN (Reason: Sexual Activity) Rx Instructions: administer 30 minutes to 4 hours before activity Referrals Referrals: Melinda Wu MD [Physician] -
--- NOTE | 2021-12-12 11:13 | XRay Report ---
XR chest 1V portable HISTORY: Atypical chest pain with shortness of breath. COMPARISON: Chest 11/21/2021. FINDINGS: The cardiac silhouette is normal in size. There are poststernotomy changes and calcificatio ns within the aortic knob. No new focal lung consolidations to suggest pneumonia. No evidence for pul monary edema. No pleural effusions. No pneumothorax. IMPRESSION: No significant change compared to the prior study. No acute process. ACT 112: Negative or not required by law. Electronically signed by: Zafar Anne M.D. 12/12/2021 11:12 AM
[2021-12-12 11:36] LABS: INR 1.1 (0.9-1.1); Partial Thromboplastin Ratio 0.9; Partial Thromboplastin Time 24.1 Seconds (21.0-31.0); Prothrombin Time 11.4 Seconds (9.0-12.0)
[2021-12-12 11:45] LABS: Albumin Level 3.5 gm/dl (3.4-5.0); BUN Creatinine Ratio 18.1 (10-20); Bilirubin,Total 0.6 mg/dl (0.2-1.0); Calcium 8.9 mg/dl (8.5-10.1); Est GFR (African American) 97.7 ml/min; Est GFR (Non-African American) 84.3 ml/min; Globulin 3.4 gm/dl (2.5-4.0); Potassium 4.1 mmol/L (3.5-5.1); Total Protein 6.9 gm/dl (6.0-8.3)
--- NOTE | 2021-12-12 11:45 | CT Scan Report ---
CT OF THE HEAD WITHOUT CONTRAST CLINICAL HISTORY: Syncope. COMPARISON STUDY: No previous studies for comparison. CT DOSE: 687.98 mGy.cm TECHNIQUE: Helical axial images of the head were obtained without IV contrast. Automated exposure con trol was utilized for the study. A dose lowering technique was utilized adhering to the principles o f ALARA. FINDINGS: No acute intracranial hemorrhage, midline shift or mass effect is present. Moderate atrophy is noted. The ventricular system is unremarkable. The basal cisterns are patent. No extra-axial kasey ections are present. There are no findings to suggest acute dural sinus thrombosis or acute territori al infarct. No significant calvarial abnormalities are present. Visualized portions of the sinuses an d mastoid air cells are clear. IMPRESSION: No acute intracranial findings. ACT 112: Negative or not required by law. Electronically signed by: Carlos Ozuna M.D. 12/12/2021 11:44 AM
[2021-12-12 11:48] LABS: Hemoglobin 6.7 g/dl (14.0-18.0); Mean Corpuscular Hemoglobin 30.3 pg (25.0-34.0); Mean Corpuscular Hgb Conc 35.3 g/dL (32.0-36.0); Mean Platelet Volume 10.4 fL (9.4-12.4); Platelet Count 20 K/uL (130-400); RDW Coefficient of Variation 14.3 % (11.5-14.5); RDW Standard Deviation 45.1 fL (36.4-46.3); Red Blood Count 2.21 M/uL (4.63-6.08); White Blood Count 0.26 K/ul (4.8-10.8)
[2021-12-12 11:50] LABS: Troponin I High Sensitivity 8.3 pg/ml (0-20)
[2021-12-12] MEDS ORDERED: SODIUM CHLORIDE 0.9% 250 ML IV PRN ×2 (12:47→19:01)
--- NOTE | 2021-12-12 15:06 | History & Physical Report ---
Date of Service December 12, 2021 Assessment & Plan (1) Pre-syncope: Plan: Secondary to severe anemia secondary to AML and chemotherapy Hemoglobin 6.7 on arrival, vital signs normal, but orthostatic vital signs not checked Troponin negative, ECG without ischemic changes Does have moderate aortic stenosis on recent echocardiogram but not likely contributing Was given normal saline in the ER -Admit to PCU for telemetry monitoring -Transfusional support with PRBCs to be provided-2 units ordered but given positive antibody screen, blood has to be obtained from central blood bank in [place]-awaiting -Check orthostatics prior to discharge to ensure lightheadedness is improved -Follow CBC daily (2) Pancytopenia: Plan: Secondary to antineoplastic treatment for AML as well as AML itself As above, transfusing with PRBCs Platelets at 20 K, no evidence of bleeding-no need for platelet transfusion -Hold any antiplatelets and chemical prophylaxis for DVT -Follow CBC -No need for antibiotics as he is afebrile and no evidence of infection -Check UA although has no signs or symptoms of UTI (3) AML (acute myeloblastic leukemia): Plan: Recent diagnosis in the last several weeks, recently discharged from [facility] a couple of days prior to admission after induction chemotherapy with Dacogen and venetoclax No fevers here Pancytopenic as above Reviewed discharge summary from [facility] which will be scanned into the chart -His primary oncologist at [facility] is aware of his admission here and recommends staying here for transfusional support -He is to start following with Dr. Coronado of [facility] oncology here in [place] as well-his first appointment was for labs today [facility], however he came to the ER instead for presyncope -Continue venetoclax-I placed a call to [facility] oncology office and I am awaiting a return call to make sure this is okay with oncology, however I feel it is best for him to continue his treatment -Continue prophylactic levofloxacin, acyclovir, and voriconazole while severely neutropenic -If has fevers, would get blood cultures, repeat urine culture, and start broad- spectrum antibiotics -Continue allopurinol 3 mg daily to prevent tumor lysis syndrome (4) Aortic stenosis: Plan: Moderate on echocardiogram from 07/2021, preserved EF With murmur on exam consistent with such Avoid hypotension (5) Arteriosclerotic coronary artery disease: Plan: Status post CABG Holding antiplatelet and statin due to thrombocytopenia as per discharge summary from [facility] Hold home metoprolol due to presyncope Holding other home antihypertensives No ischemic changes on ECG, troponin here is negative Does report some dyspnea and burning in the chest with exertion very recently- keep on bedrest until transfused (6) Benign enlargement of prostate: Plan: No acute issues Watch for urinary retention Not on medication (7) Dyslipidemia: Plan: Holding statin as above due to thrombocytopenia Question if this is secondary to increased risk of intracranial hemorrhage, but this is as per instructions and discharge summary (8) Carotid artery plaque: Plan: Reportedly 50% Follow as an outpatient Holding antiplatelet and statin (9) Hypertension: Plan: Hold all home antihypertensives due to presyncope and severe anemia Monitor blood pressures Plan DVT prophylaxis-SCDs only Disposition-admit to PCU Full code Will contact with update History of Present Illness Chief Complaint: Lightheadedness Primary Care Provider: Janelle Dodd PA-C This patient is a 76-year-old male with a history of recently diagnosed AML, CAD (3v CABG with PCI JEAN CARLOS 07/30), HLD, HTN, Aortic Stenosis, vitamin B12 deficiency, and carotid artery disease (<50% bilaterally 2018) who recently discharged from our hospital to [facility] in [place] on 11/22 for new diagnosis of what turned out to be AML. He was discharged from [place] just 3 days ago after a prolonged hospitalization for induction of chemotherapy with venetoclax and Dacogen. His hemoglobin on the day of discharge from [facility] was 7.3. He was at his oncology doctor's office today at [facility] when he was sitting in the waiting room and became diaphoretic and felt lightheaded for 3 or 4 minutes but did not pass out. He reports it occurred again and he was sent to the ER where he was found to have a hemoglobin of 6.7, and was pancytopenic. No fevers or chills, no recent headache, runny nose, sore throat. No shortness of breath or chest pains but does feel dyspneic when he has been walking around prior to admission since he was discharged on Sunday from [place]. Denies abdominal pains, no nausea/vomiting/diarrhea. No hematuria or hematochezia. His appetite has actually been fairly decent. He does state that he has been feeling very fatigued but presumed that was from the recent chemotherapy. In the ER, his vital signs were normal, he was afebrile, CT head and chest x-ray were normal. The ER physician spoke with Dr. Miner of hematology/oncology at [facility] who was familiar with the patient. She recommended keeping him in our facility for PRBC transfusion as long as he was not having neutropenic fevers. He was given a total of 500 mL of normal saline. He is positive for antibody screen on type and crossmatch and it will take some time for him to get blood from the central blood bank in [place]. He will be admitted for symptomatic anemia in the setting of AML with recent chemotherapy treatment. Allergies Allergy/AdvReac Type Severity Reaction Status Date / Time diphenhydramine AdvReac Severe ITCHING Verified 11/21/21 18:14 [From Benadryl] lisinopril AdvReac Mild FATIGUE Verified 11/21/21 18:14 losartan AdvReac Unknown FATIGUE, Verified 11/21/21 18:14 CHEST PAIN acetaminophen [From Percocet] AdvReac Confusion Verified 11/21/21 18:14 oxycodone [From Percocet] AdvReac Confusion Verified 11/21/21 18:14 Home Medications Medication Instructions Recorded Confirmed Type ascorbic acid (vitamin C) 500 mg 500 mg PO DAILY 02/11/19 11/21/21 History tablet nitroglycerin 0.4 mg sublingual 0.4 mg sublingual Q5M PRN Chest 02/11/19 11/21/21 History tablet Pain #1 tab sildenafil 100 mg tablet 100 mg PO DAILY PRN sexual 11/08/20 11/21/21 Rx activity #10 tabs rosuvastatin 40 mg tablet 40 mg PO DAILY #90 tabs 05/31/21 11/21/21 Rx acyclovir 400 mg tablet 400 mg PO .AM &HS 12/12/21 12/12/21 History allopurinol 300 mg tablet 300 mg PO QAM 12/12/21 12/12/21 History amlodipine 2.5 mg tablet 2.5 mg PO QAM 12/12/21 12/12/21 History cyanocobalamin (vitamin B-12) 1,000 mcg PO QAM 12/12/21 12/12/21 History 1,000 mcg capsule levofloxacin 500 mg tablet 500 mg PO QAM 12/12/21 12/12/21 History metoprolol succinate 100 mg 100 mg PO QAM 12/12/21 12/12/21 History tablet,extended release 24 hr ondansetron 4 mg disintegrating 4 mg PO Q6H PRN Nausea 12/12/21 12/12/21 History tablet polyethylene glycol 3350 17 gram 17 g PO DAILY PRN Constipation 12/12/21 12/12/21 History oral powder packet venetoclax 100 mg tablet 100 mg PO QAM 12/12/21 12/12/21 History (Venclexta) voriconazole 200 mg tablet 200 mg PO BID 12/12/21 12/12/21 History Past Med/Surg History Medical History AML (acute myeloblastic leukemia) Aortic stenosis Arteriosclerotic coronary artery disease Benign enlargement of prostate Carotid artery plaque Dyslipidemia Hypertension Past myocardial infarction Tubulovillous adenoma of colon Surgical History History of cardiac cath cath stent 1 first obtuse marginal branch, type bare metal cath stent 2 first saphenous vein graft, type drug-eluting History of colonoscopy History of coronary artery bypass graft x 3 History of hemorrhoidectomy S/P CABG x 3 Family History Brother Coronary heart disease 5 brothers Father Myocardial infarction Denies family history of Ovarian cancer Prostate cancer Breast cancer Colorectal cancer Lung disease Social History Smoking Status: Former smoker Tobacco Type: Cigarettes Age Started Using Tobacco: 14; Age Quit Using Tobacco: 21; packs per day: 1; Years Smoked: 7; Second Hand Exposure: No; Hx Alcohol Use: No Hx Substance Use: No Preferred Language: French Communication Ability: Effective Visual Impairment: Limited Hearing Ability: Use of Hearing Aid Call Or Contact Centre Coach Required: No Beliefs That Will Affect Care: None marital status: Current Living Situation: Spouse current occupational status: employed 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 How many Children do You have: 4 Feels Safe at Home: Yes Childhood Exposure to Second-Hand Smoke: No caffeine: Yes (cup of coffee in morning ) Dental Care, Regularly: No Physical Activity Frequency: Daily Seatbelt Use: always Sunscreen Use: Yes Assistive Devices: None Review of Systems Review of Systems: All systems reviewed & are unremarkable except as noted in HPI & below No skin rashes, no neck pain, no joint pains No bruising or bleeding anywhere No epistaxis or gum bleeding, no hematuria, hematochezia Physical Exam Constitutional: WD/WN, vitals as above Eyes: PERRL, conjunctivae normal, anicteric sclerae ENMT: external ear and nose normal, oropharynx normal Neck: trachea midline, no thyromegaly Respiratory: normal respiratory effort, lungs clear to auscultation Cardiovascular: Rate/Rhythm: regular rate and regular rhythm Heart Sounds: + murmur (3/6 JENNIFER at [facility]) Extremities: no edema Chest (Breasts): Chest: normal inspection of chest Gastrointestinal (Abdomen): normal bowel sounds, soft, nontender, no hepatosplenomegaly Musculoskeletal: Extremities: extremities normal to inspection; no cyanosis and no clubbing Skin: no rashes, warm and dry Neurologic: moves all extremities and awake; no focal motor deficits Psychiatric: A+Ox3, euthymic affect Lymphatic: no lymphedema Results & Data Results & Data ([facility]) Vital Signs (Past 12 Hours) Vital Signs Temp Pulse Pulse Resp BP BP Pulse Ox 12/12/21 12:48 78 20 125/60 95 12/12/21 12:28 77 20 118/64 99 12/12/21 10:40 36.8 C 72 16 111/66 95 O2 Del Method 12/12/21 12:48 12/12/21 12:28 12/12/21 10:40 Room Air Laboratory Results 12/12/21 12/12/21 12/12/21 Range/Units 13:54 10:50 10:50 WBC (4.8-10.8) K/ul RBC (4.63-6.08) M/uL Hgb (14.0-18.0) g/dl Hct (40.1-51.0) % MCV (80.0-100.0) fL MCH (25.0-34.0) pg MCHC (32.0-36.0) g/dL RDW Std Deviation (36.4-46.3) fL RDW Coeff of Marty (11.5-14.5) % Plt Count (130-400) K/uL MPV (9.4-12.4) fL Immature Gran % (Auto) Neut % (Auto) Lymph % (Auto) [place] % (Auto) Eos % (Auto) Baso % (Auto) Neut # (Auto) Lymph # (Auto) [place] # (Auto) Eos # (Auto) Baso # (Auto) Immature Gran # (Auto) Neutrophils % (Manual) Band Neutrophils % Lymphocytes % (Manual) Prolymphocyte % Reactive Lymphs % (Man) Monocytes % (Manual) Eosinophils % (Manual) Basophils % (Manual) Metamyelocytes % (Man) Myelocytes % (Man) Promyelocytes % (Man) Blast Cells % (Manual) Plasma Cell % (Manual) Other Cells % Nucleated RBC % Neutrophils # (Manual) Band Neutrophils # Total Absolute Neuts Lymphocytes # (Manual) Prolymphocyte # Reactive Lymphs # Total Abs Lymphocytes Monocytes # (Manual) Eosinophils # (Manual) Basophils # (Manual) Metamyelocytes # (Man) Myelocytes # (Manual) Promyelocytes # (Man) Blast Cells # (Man) Plasma Cell # (Manual) Other Cells # Nucleated RBCs # (Man) Hypersegmented Neuts Hyposegmented Neuts Hypogranular Neuts Large Granular Lymphs # Lrg Granular Lymphs Hairy Cells Smudge Cells Toxic Granulation Toxic Vacuolation Dohle Bodies Alyssa Rods Hypogranular Platelets Clumped Platelets Giant Platelets Platelet Satelliting RBC Morphology Polychromasia Hypochromasia Poikilocytosis Basophilic Stippling Anisocytosis Microcytosis Macrocytosis Spherocytes Pappenheimer Bodies Sickle Cells Target Cells Tear Drop Cells Ovalocytes Stomatocytes Manzano-Butters Bodies Echinocytes Acanthocytes (Spur) Rouleaux RBC Agglutinates Schistocytes Sezary Cell PT 11.4 (9.0-12.0) Seconds INR 1.1 (0.9-1.1) APTT 24.1 (21.0-31.0) Seconds PTT Ratio 0.9 Sodium 135 L (136-145) mmol/L Potassium 4.1 (3.5-5.1) mmol/L Chloride 105 (98-107) mmol/L Carbon Dioxide 24 (21-32) mmol/L Anion Gap 6 (3-11) BUN 15 (6-23) mg/dl Creatinine 0.83 (0.6-1.4) mg/dl Est Cr Clr Drug Dosing 71.0 ml/min Est GFR ( Amer) 97.7 ml/min Est GFR (Non-Af Amer) 84.3 ml/min BUN/Creatinine Ratio 18.1 (10-20) Glucose 105 H (70-99(Fasting)) mg/dl Calcium 8.9 (8.5-10.1) mg/dl Total Bilirubin 0.6 (0.2-1.0) mg/dl AST 18 (13-39) U/L ALT 9 (7-52) U/L Alkaline Phosphatase 68 (34-104) U/L Troponin I High Sens 8.3 (0-20) pg/ml Total Protein 6.9 (6.0-8.3) gm/dl Albumin 3.5 (3.4-5.0) gm/dl Globulin 3.4 (2.5-4.0) gm/dl Albumin/Globulin Ratio 1.0 (0.9-2) Lipase 14 (11-82) U/L SARS-CoV-2, RNA, NAAT NEGATIVE (NEGATIVE) Blood Parasites ID Blood Type Antibody Screen Antibody Identification Antibody ID Comment Antigen Identification Direct Antiglob Test (Negative) CHAPARRO (IgG-AHG) (Negative) CHAPARRO, Polyspecific (Negative) CHAPARRO C3b, C3d 5 Min (Negative) Crossmatch 12/12/21 12/12/21 Range/Units 10:50 10:44 WBC 0.26 L* (4.8-10.8) K/ul RBC 2.21 L (4.63-6.08) M/uL Hgb 6.7 L* (14.0-18.0) g/dl Hct 19.0 L* (40.1-51.0) % MCV 86.0 (80.0-100.0) fL MCH 30.3 (25.0-34.0) pg MCHC 35.3 (32.0-36.0) g/dL RDW Std Deviation 45.1 (36.4-46.3) fL RDW Coeff of Marty 14.3 (11.5-14.5) % Plt Count 20 L* (130-400) K/uL MPV 10.4 (9.4-12.4) fL Immature Gran % (Auto) Cancelled Neut % (Auto) Cancelled Lymph % (Auto) Cancelled [place] % (Auto) Cancelled Eos % (Auto) Cancelled Baso % (Auto) Cancelled Neut # (Auto) Cancelled Lymph # (Auto) Cancelled [place] # (Auto) Cancelled Eos # (Auto) Cancelled Baso # (Auto) Cancelled Immature Gran # (Auto) Cancelled Neutrophils % (Manual) Cancelled Band Neutrophils % Cancelled Lymphocytes % (Manual) Cancelled Prolymphocyte % Cancelled Reactive Lymphs % (Man) Cancelled Monocytes % (Manual) Cancelled Eosinophils % (Manual) Cancelled Basophils % (Manual) Cancelled Metamyelocytes % (Man) Cancelled Myelocytes % (Man) Cancelled Promyelocytes % (Man) Cancelled Blast Cells % (Manual) Cancelled Plasma Cell % (Manual) Cancelled Other Cells % Cancelled Nucleated RBC % Cancelled Neutrophils # (Manual) Cancelled Band Neutrophils # Cancelled Total Absolute Neuts Cancelled Lymphocytes # (Manual) Cancelled Prolymphocyte # Cancelled Reactive Lymphs # Cancelled Total Abs Lymphocytes Cancelled Monocytes # (Manual) Cancelled Eosinophils # (Manual) Cancelled Basophils # (Manual) Cancelled Metamyelocytes # (Man) Cancelled Myelocytes # (Manual) Cancelled Promyelocytes # (Man) Cancelled Blast Cells # (Man) Cancelled Plasma Cell # (Manual) Cancelled Other Cells # Cancelled Nucleated RBCs # (Man) Cancelled Hypersegmented Neuts Cancelled Hyposegmented Neuts Cancelled Hypogranular Neuts Cancelled Large Granular Lymphs Cancelled # Lrg Granular Lymphs Cancelled Hairy Cells Cancelled Smudge Cells Cancelled Toxic Granulation Cancelled Toxic Vacuolation Cancelled Dohle Bodies Cancelled Alyssa Rods Cancelled Hypogranular Platelets Cancelled Clumped Platelets Cancelled Giant Platelets Cancelled Platelet Satelliting Cancelled RBC Morphology Cancelled Polychromasia Cancelled Hypochromasia Cancelled Poikilocytosis Cancelled Basophilic Stippling Cancelled Anisocytosis Cancelled Microcytosis Cancelled Macrocytosis Cancelled Spherocytes Cancelled Pappenheimer Bodies Cancelled Sickle Cells Cancelled Target Cells Cancelled Tear Drop Cells Cancelled Ovalocytes Cancelled Stomatocytes Cancelled Manzano-Butters Bodies Cancelled Echinocytes Cancelled Acanthocytes (Spur) Cancelled Rouleaux Cancelled RBC Agglutinates Cancelled Schistocytes Cancelled Sezary Cell Cancelled PT (9.0-12.0) Seconds INR (0.9-1.1) APTT (21.0-31.0) Seconds PTT Ratio Sodium (136-145) mmol/L Potassium (3.5-5.1) mmol/L Chloride (98-107) mmol/L Carbon Dioxide (21-32) mmol/L Anion Gap (3-11) BUN (6-23) mg/dl Creatinine (0.6-1.4) mg/dl Est Cr Clr Drug Dosing ml/min Est GFR ( Amer) ml/min Est GFR (Non-Af Amer) ml/min BUN/Creatinine Ratio (10-20) Glucose (70-99(Fasting)) mg/dl Calcium (8.5-10.1) mg/dl Total Bilirubin (0.2-1.0) mg/dl AST (13-39) U/L ALT (7-52) U/L Alkaline Phosphatase (34-104) U/L Troponin I High Sens (0-20) pg/ml Total Protein (6.0-8.3) gm/dl Albumin (3.4-5.0) gm/dl Globulin (2.5-4.0) gm/dl Albumin/Globulin Ratio (0.9-2) Lipase (11-82) U/L SARS-CoV-2, RNA, NAAT (NEGATIVE) Blood Parasites ID Cancelled Blood Type A Positive Antibody Screen POSITIVE A Antibody Identification Pending Antibody ID Comment Pending Antigen Identification M Antigen - NEGATIVE Direct Antiglob Test Negative (Negative) CHAPARRO (IgG-AHG) Neg (Negative) CHAPARRO, Polyspecific Neg (Negative) CHAPARRO C3b, C3d 5 Min Neg (Negative) Crossmatch See Detail ECG Additional Comments: ECG on 12/12/2021 at 10:46 AM with normal sinus rhythm, rate 74, RBBB, LAFB, unchanged from previous Code Status & VTE Plan Code Status Full code VTE Prophylaxis Plan VTE Prophylaxis will be ordered: Yes PG Care Time/CCT Total # of Minutes Spent Total Time Spent with Patient: Total time spent is greater than 50% in coordination of care (as documented) at patient's floor/unit and/or counseling patient: Coding Level of Care Code 28424 Initial Inpt Care Lvl 3 Diagnoses Pre-syncope R55 Pancytopenia D61.818 AML (acute myeloblastic leukemia) C92.00 Aortic stenosis I35.0 Arteriosclerotic coronary artery disease I25.10 Benign enlargement of prostate N40.0 Dyslipidemia E78.5 Carotid artery plaque I65.29 Hypertension I10
[2021-12-12 16:47] LABS: Appearance Urine Clear (Clear); Bilirubin Urine Negative (Negative); Blood Urine Negative (Negative); Color Urine Yellow; Glucose Urine UA Negative (Negative); Ketones Urine Negative (Negative); Leukocyte Esterase Urine Negative (Negative); Nitrite Urine Negative (Negative); Protein Urine Negative (Negative); Specific Gravity Urine 1.017 (1.000-1.030); Urobilinogen Urine Negative (Negative); pH Urine 5.5 (4.5-7.5)
[2021-12-12] MEDS ORDERED: NITROGLYCERIN SL 0.4 MG/TAB TAB SL PRN (19:01)
[2021-12-12] MEDS ORDERED: POLYETHYLENE (MIRALAX) 17 GM PACK PO PRN (19:01)
[2021-12-12] MEDS ORDERED: ONDANSETRON INJ 2 MG/ML 2 ML VIAL IV PRN (19:01)
[2021-12-12] MEDS: ACYCLOVIR 400 MG TAB PO SCH (20:58)
[2021-12-12] MEDS: VORICONAZOLE 200 MG TABLET PO SCH (20:58)
[2021-12-13 05:32] LABS: Albumin Globulin Ratio 1.1 (0.9-2); Albumin Level 3.3 gm/dl (3.4-5.0); BUN Creatinine Ratio 13.9 (10-20); Bilirubin,Total 0.6 mg/dl (0.2-1.0); Calcium 8.5 mg/dl (8.5-10.1); Creatinine Clr Calc Pharmacy 74.6 ml/min; Est GFR (African American) 99.7 ml/min; Globulin 3.1 gm/dl (2.5-4.0); Potassium 3.9 mmol/L (3.5-5.1); Total Protein 6.4 gm/dl (6.0-8.3)
[2021-12-13 05:58] LABS: Hematocrit (blood only) 23.5 % (40.1-51.0); Hemoglobin 8.3 g/dl (14.0-18.0); Mean Corpuscular Hemoglobin 30.3 pg (25.0-34.0); Mean Corpuscular Hgb Conc 35.3 g/dL (32.0-36.0); Mean Corpuscular Volume 85.8 fL (80.0-100.0); Mean Platelet Volume 9.4 fL (9.4-12.4); Platelet Count 11 K/uL (130-400); RDW Coefficient of Variation 13.9 % (11.5-14.5); Red Blood Count 2.74 M/uL (4.63-6.08); White Blood Count 0.25 K/ul (4.8-10.8)
--- NOTE | 2021-12-13 06:13 | Electrocardiogram Report ---
Test Reason : Blood Pressure : / mmHG Vent. Rate : 074 BPM Atrial Rate : 074 BPM P-R Int : 164 ms QRS Dur : 140 ms QT Int : 434 ms P-R-T Axes : 000 -61 018 degrees QTc Int : 481 ms Normal sinus rhythm Right bundle branch block Left anterior fascicular block Bifascicular block Abnormal ECG When compared with ECG of 22-NOV-2021 04:43, No significant change Confirmed by Laith Lacy ([id number]) on 12/13/2021 6:12:54 AM Referred By: Confirmed By:Laith Lacy
[2021-12-13] MEDS: levoFLOXacin 500 MG TAB PO SCH (08:23)
[2021-12-13] MEDS: allopurinoL 300 MG TAB PO SCH (08:23)
[2021-12-13] MEDS: CYANOCOBALAMIN (B-12) 500 MCG TABLET PO SCH (08:23)
[2021-12-13] MEDS: ACYCLOVIR 400 MG TAB PO SCH ×2 (08:23→20:13)
[2021-12-13] MEDS: VORICONAZOLE 200 MG TABLET PO SCH ×2 (08:23→20:13)
[2021-12-13] MEDS: METOPROLOL SUCC 50MG EXT REL TAB PO SCH (09:37)
--- NOTE | 2021-12-13 13:00 | Hospitalist Progress Note ---
Date of Service December 13, 2021 Assessment & Plan (1) Pre-syncope: Plan: Secondary to severe anemia secondary to AML and recent chemotherapy. Blood pressure now stable and metoprolol will be restarted. He received 2 units of packed red blood cells on admission (2) Pancytopenia: Plan: Hemoglobin improved to 8.3 after 2 units packed red blood cells given on admission. Platelet count however has dropped to 11,000 and he is receiving platelets today, December 13. Pancytopenia is due to recent antineoplastic treatment for AML as well as AML itself. Oncology consult pending. Serial lab studies (3) AML (acute myeloblastic leukemia): Plan: Recent diagnosis in the last several weeks. Recently discharged from [facility] a couple of days prior to admission after induction chemotherapy with Dacogen and venetoclax. Oncology consultation requested. Serial lab studies. Continue prophylactic levofloxacin, acyclovir, and voriconazole while severely neutropenic. (4) Aortic stenosis: Plan: Moderate on echocardiogram from 07/2021, preserved EF. Avoid hypotension (5) Arteriosclerotic coronary artery disease: Plan: Status post CABG. Holding antiplatelet and statin due to thrombocytopenia as per discharge summary from [facility]. Metoprolol restarted today, December 13, since blood pressure has stabilized. No ischemic changes on ECG, troponin here is negative (6) Benign enlargement of prostate: Plan: No acute issues. (7) Dyslipidemia: Plan: Holding statin as above due to thrombocytopenia. (8) Carotid artery plaque: Plan: Reportedly 50%. Follow as an outpatient. Currently holding antiplatelet and statin (9) Hypertension: Plan: Metoprolol restarted today, December 13 Plan DVT prophylaxis-SCDs only Disposition-eventual discharge to home Admission and Anticipated Discharge Date Admission Date: December 12, 2021 Subjective Alert and oriented. No acute problems. Hemoglobin improved to 8.3 after 2 units packed red blood cells administered on admission. Platelet count however has dropped to 11,000 and platelet transfusion currently underway. We will restart his metoprolol now that his blood pressure has normalized because he has a history of coronary artery disease and previous bypass grafting. [facility] oncology consulted and pending Review of Systems Review of Systems: Constitutional-no fever or chills ENT-no blurred vision, no double vision, no epistaxis, no sore throat Respiratory-no cough, no wheezing, no shortness of breath Cardiac-no palpitations, no chest pain, no syncope GI-no nausea, vomiting, diarrhea, melena, hematochezia -no urinary retention, no urinary incontinence, no dysuria, no hematuria Musculoskeletal-no joint pain, no muscle tenderness Skin-no bruising, no rashes, no pruritus Neuro-recent near syncope prompted evaluation in the ED and subsequent hospital admission Psych-no depression, no anxiety Physical Exam Physical Exam: General-alert and oriented x3, no fevers, no chills HEENT-head atraumatic and normocephalic, pupils equal and reactive to light, extraocular muscles intact Neck-no lymphadenopathy or thyromegaly, trachea midline Chest-clear to auscultation percussion. No rales wheezing or rhonchi Cardiac-regular rate and rhythm, normal S1 and S2, no murmurs Abdomen-normal bowel sounds, nontender, no hepatosplenomegaly Extremities-no cyanosis, clubbing, or edema Neuro-cranial nerves II through XII intact, motor and sensory function within normal limits, strength symmetrical , no focal deficits Psych-normal affect, normal mood Results & Data Results & Data ([facility]) Vital Signs (Past 12 Hours) Vital Signs Temp Pulse Pulse Resp BP BP Pulse Ox 12/13/21 12:17 36.7 C 92 H 18 124/67 12/13/21 11:51 37.1 C 92 H 17 115/67 96 12/13/21 11:17 37.6 C H 100 H 18 133/77 97 12/13/21 10:47 37.0 C 92 H 17 133/75 95 12/13/21 10:32 37.0 C 98 H 17 116/67 95 12/13/21 10:15 37.0 C 100 H 14 123/73 97 12/13/21 10:13 37.0 C 106 H 123/73 12/13/21 09:45 91 H 12/13/21 07:07 36.7 C 99 H 18 138/62 97 12/13/21 03:43 37 C 96 H 20 125/71 96 12/13/21 03:22 36.3 C L 96 H 14 129/76 93 12/13/21 03:20 36.3 C L 95 H 14 129/76 94 12/13/21 02:22 36.6 C 94 H 20 130/77 93 12/13/21 01:52 36.7 C 95 H 20 142/80 H 94 12/13/21 01:37 37.1 C 94 H 20 115/68 94 12/13/21 01:37 37.1 C 94 H 20 115/68 12/13/21 01:37 37.1 C 94 H 20 115/68 94 12/13/21 01:37 37.1 C 94 H 20 115/68 94 12/13/21 01:15 36.8 C 94 H 20 117/70 96 12/13/21 01:13 36.8 C 94 H 20 117/70 96 O2 Del Method 12/13/21 12:17 12/13/21 11:51 12/13/21 11:17 12/13/21 10:47 12/13/21 10:32 12/13/21 10:15 12/13/21 10:13 12/13/21 09:45 12/13/21 07:07 Room Air 12/13/21 03:43 12/13/21 03:22 12/13/21 03:20 12/13/21 02:22 12/13/21 01:52 12/13/21 01:37 12/13/21 01:37 12/13/21 01:37 12/13/21 01:37 12/13/21 01:15 12/13/21 01:13 Laboratory Results 12/13/21 04:58 12/13/21 04:58 PG Care Time/CCT Total # of Minutes Spent Total Time Spent with Patient: Total time spent is greater than 50% in coordination of care (as documented) at patient's floor/unit and/or counseling patient: Coding Level of Care Code 14922 Subseq Hosp Care Lvl 3 Diagnoses Pre-syncope R55 Pancytopenia D61.818 AML (acute myeloblastic leukemia) C92.00 Aortic stenosis I35.0 Arteriosclerotic coronary artery disease I25.10 Benign enlargement of prostate N40.0 Dyslipidemia E78.5 Carotid artery plaque I65.29 Hypertension I10
[2021-12-14] MEDS: ACETAMINOPHEN 325 MG TAB PO PRN ×2 (01:50→20:55)
[2021-12-14 06:01] LABS: BUN Creatinine Ratio 12.1 (10-20); Calcium 8.6 mg/dl (8.5-10.1); Creatinine Clr Calc Pharmacy 64.7 ml/min; Est GFR (African American) 93.2 ml/min; Est GFR (Non-African American) 80.4 ml/min; Potassium 4.3 mmol/L (3.5-5.1)
[2021-12-14 06:06] LABS: Hematocrit (blood only) 23.9 % (40.1-51.0); Hemoglobin 8.3 g/dl (14.0-18.0); Mean Corpuscular Hemoglobin 29.6 pg (25.0-34.0); Mean Corpuscular Hgb Conc 34.7 g/dL (32.0-36.0); Mean Corpuscular Volume 85.4 fL (80.0-100.0); Mean Platelet Volume 9.6 fL (9.4-12.4); Platelet Count 25 K/uL (130-400); RDW Coefficient of Variation 13.8 % (11.5-14.5); RDW Standard Deviation 43.6 fL (36.4-46.3); White Blood Count 0.35 K/ul (4.8-10.8)
[2021-12-14] MEDS: VORICONAZOLE 200 MG TABLET PO SCH ×2 (08:22→20:55)
[2021-12-14] MEDS: allopurinoL 300 MG TAB PO SCH (08:22)
[2021-12-14] MEDS: levoFLOXacin 500 MG TAB PO SCH (08:22)
[2021-12-14] MEDS: CYANOCOBALAMIN (B-12) 500 MCG TABLET PO SCH (08:22)
[2021-12-14] MEDS: ACYCLOVIR 400 MG TAB PO SCH ×2 (08:22→20:55)
[2021-12-14] MEDS: METOPROLOL SUCC 50MG EXT REL TAB PO SCH (08:22)
--- NOTE | 2021-12-14 15:29 | Hospitalist Progress Note ---
Date of Service December 14, 2021 Assessment & Plan (1) Pre-syncope: Plan: Secondary to severe anemia due to AML and recent chemotherapy. Blood pressure now stable and metoprolol has been restarted. He received 2 units of packed red blood cells on admission (2) Pancytopenia: Plan: Hemoglobin improved to 8.3 after 2 units packed red blood cells given on admission and appears stable. Platelet count however dropped to 11,000 and he received platelets on December 13. Pancytopenia is due to recent antineoplastic treatment for AML as well as AML itself. Oncology consult pending. Serial lab studies (3) AML (acute myeloblastic leukemia): Plan: Recent diagnosis in the last several weeks. Recently discharged from [facility] a couple of days prior to this admission after induction chemotherapy with Dacogen and venetoclax. Oncology consultation requested. Serial lab studies. Continue prophylactic levofloxacin, acyclovir, and voriconazole while severely neutropenic. (4) Aortic stenosis: Plan: Moderate on echocardiogram from 07/2021, preserved EF. Avoid hypotension (5) Arteriosclerotic coronary artery disease: Plan: Status post CABG. Holding antiplatelet and statin due to thrombocytopenia as per discharge summary from [facility]. Metoprolol restarted on December 13, since blood pressure has stabilized. No ischemic changes on ECG, troponin here is negative (6) Benign enlargement of prostate: Plan: No acute issues. (7) Dyslipidemia: Plan: Holding statin as above due to thrombocytopenia. (8) Carotid artery plaque: Plan: Reportedly 50%. Follow as an outpatient. Currently holding antiplatelet and statin (9) Hypertension: Plan: Metoprolol restarted on December 13 Plan DVT prophylaxis-SCDs only Disposition-eventual discharge to home . Hopefully tomorrow, December 15 Admission and Anticipated Discharge Date Admission Date: December 12, 2021 Subjective Alert and oriented. He is anxious to go home. I think 1 more day at least is indicated. White blood cell count has improved to 0.35 but is moving in the right direction. Platelet count is 25,000 after the 12 transfusion and will be monitored daily. Hemoglobin appears to have stabilized at 8.3. We will repeat lab tomorrow morning then make a decision whether or not he can go home Review of Systems Review of Systems: . Constitutional-no fever or chills ENT-no blurred vision, no double vision, no epistaxis, no sore throat Respiratory-no cough, no wheezing, no shortness of breath Cardiac-no palpitations, no chest pain, no syncope GI-no nausea, vomiting, diarrhea, melena, hematochezia -no urinary retention, no urinary incontinence, no dysuria, no hematuria Musculoskeletal-no joint pain, no muscle tenderness Skin-no bruising, no rashes, no pruritus Neuro-no isolated weakness, no paresthesia, no weakness Psych-no depression, no anxiety Physical Exam Physical Exam: General-alert and oriented x3, no fevers, no chills HEENT-head atraumatic and normocephalic, pupils equal and reactive to light, extraocular muscles intact Neck-no lymphadenopathy or thyromegaly, trachea midline Chest-clear to auscultation percussion. No rales wheezing or rhonchi Cardiac-regular rate and rhythm, normal S1 and S2, no murmurs Abdomen-normal bowel sounds, nontender, no hepatosplenomegaly Extremities-no cyanosis, clubbing, or edema Neuro-cranial nerves II through XII intact, motor and sensory function within normal limits, strength symmetrical , no focal deficits Psych-normal affect, normal mood Results & Data Results & Data ([facility]) Vital Signs (Past 12 Hours) Vital Signs Temp Pulse Pulse Resp BP Pulse Ox O2 Del Method 12/14/21 11:06 36.9 C 78 17 127/71 95 Room Air 12/14/21 08:00 62 12/14/21 07:02 36.6 C 73 17 121/67 96 Room Air Laboratory Results 12/14/21 04:54 12/14/21 04:54 PG Care Time/CCT Total # of Minutes Spent Total Time Spent with Patient: Total time spent is greater than 50% in coordination of care (as documented) at patient's floor/unit and/or counseling patient: Coding Level of Care Code 57044 Subseq Hosp Care Lvl 3 Diagnoses Pre-syncope R55 Pancytopenia D61.818 AML (acute myeloblastic leukemia) C92.00 Aortic stenosis I35.0 Arteriosclerotic coronary artery disease I25.10 Benign enlargement of prostate N40.0 Dyslipidemia E78.5 Carotid artery plaque I65.29 Hypertension I10
[2021-12-15 06:42] LABS: BUN Creatinine Ratio 15.7 (10-20); Calcium 8.6 mg/dl (8.5-10.1); Creatinine Clr Calc Pharmacy 77.1 ml/min; Est GFR (African American) 97.7 ml/min; Est GFR (Non-African American) 84.3 ml/min; Potassium 4.2 mmol/L (3.5-5.1)
[2021-12-15 06:54] LABS: Hematocrit (blood only) 23.9 % (40.1-51.0); Hemoglobin 8.3 g/dl (14.0-18.0); Mean Corpuscular Hemoglobin 29.5 pg (25.0-34.0); Mean Corpuscular Hgb Conc 34.7 g/dL (32.0-36.0); Mean Corpuscular Volume 85.1 fL (80.0-100.0); Platelet Count 15 K/uL (130-400); RDW Coefficient of Variation 13.9 % (11.5-14.5); RDW Standard Deviation 43.4 fL (36.4-46.3); Red Blood Count 2.81 M/uL (4.63-6.08); White Blood Count 0.28 K/ul (4.8-10.8)
[2021-12-15] MEDS: VORICONAZOLE 200 MG TABLET PO SCH (09:10)
[2021-12-15] MEDS: METOPROLOL SUCC 50MG EXT REL TAB PO SCH (09:10)
[2021-12-15] MEDS: allopurinoL 300 MG TAB PO SCH (09:10)
[2021-12-15] MEDS: levoFLOXacin 500 MG TAB PO SCH (09:10)
[2021-12-15] MEDS: CYANOCOBALAMIN (B-12) 500 MCG TABLET PO SCH (09:10)
[2021-12-15] MEDS: ACYCLOVIR 400 MG TAB PO SCH (09:10)
--- NOTE | 2021-12-15 13:42 | Discharge Summary ---
Date of Service December 15, 2021 Admission HPI Per Admitting Provider This patient is a 76-year-old male with a history of recently diagnosed AML, CAD (3v CABG with PCI JEAN CARLOS 07/30), HLD, HTN, Aortic Stenosis, vitamin B12 deficiency, and carotid artery disease (<50% bilaterally 2018) who recently discharged from our hospital to [facility] in [place] on 11/22 for new diagnosis of what turned out to be AML. He was discharged from [place] just 3 days ago after a prolonged hospitalization for induction of chemotherapy with venetoclax and Dacogen. His hemoglobin on the day of discharge from [facility] was 7.3. He was at his oncology doctor's office today at [facility] when he was sitting in the waiting room and became diaphoretic and felt lightheaded for 3 or 4 minutes but did not pass out. He reports it occurred again and he was sent to the ER where he was found to have a hemoglobin of 6.7, and was pancytopenic. No fevers or chills, no recent headache, runny nose, sore throat. No shortness of breath or chest pains but does feel dyspneic when he has been walking around prior to admission since he was discharged on Sunday from [place]. Denies abdominal pains, no nausea/vomiting/diarrhea. No hematuria or hematochezia. His appetite has actually been fairly decent. He does state that he has been feeling very fatigued but presumed that was from the recent chemotherapy. In the ER, his vital signs were normal, he was afebrile, CT head and chest x-ray were normal. The ER physician spoke with Dr. Miner of hematology/oncology at [facility] who was familiar with the patient. She recommended keeping him in our facility for PRBC transfusion as long as he was not having neutropenic fevers. He was given a total of 500 mL of normal saline. He is positive for antibody screen on type and crossmatch and it will take some time for him to get blood from the central blood bank in [place]. He will be admitted for symptomatic anemia in the setting of AML with recent chemotherapy treatment. Admission Exam Per Admitting Provider Constitutional: WD/WN, vitals as above Eyes: PERRL, conjunctivae normal, anicteric sclerae ENMT: external ear and nose normal, oropharynx normal Neck: trachea midline, no thyromegaly Respiratory: normal respiratory effort, lungs clear to auscultation Cardiovascular: Rate/Rhythm: regular rate and regular rhythm Heart Sounds: + murmur (3/6 JENNIFER at RUSB) Extremities: no edema Chest (Breasts): Chest: normal inspection of chest Gastrointestinal (Abdomen): normal bowel sounds, soft, nontender, no hepatosplenomegaly Musculoskeletal: Extremities: extremities normal to inspection; no cyanosis and no clubbing Skin: no rashes, warm and dry Neurologic: moves all extremities and awake; no focal motor deficits Psychiatric: A+Ox3, euthymic affect Lymphatic: no lymphedema Principal Diagnosis Anemia resulting in syncope, leukopenia, thrombocytopenia due to cancer drug side effect Discharge Exam Constitutional WD/WN, vitals as above Eyes PERRL, conjunctivae normal, anicteric sclerae ENMT external ear and nose normal, oropharynx normal Neck trachea midline, no thyromegaly Respiratory normal respiratory effort, lungs clear to auscultation Cardiovascular Rate/Rhythm: regular rate and regular rhythm Heart Sounds: + murmur (3/6 JENNIFER at RUSB) Extremities: no edema Chest (Breasts) Chest: normal inspection of chest Gastrointestinal (Abdomen) normal bowel sounds, soft, nontender, no hepatosplenomegaly Musculoskeletal Extremities: extremities normal to inspection; no cyanosis and no clubbing Skin no rashes, warm and dry Neurologic moves all extremities and awake; no focal motor deficits Psychiatric A+Ox3, euthymic affect Lymphatic no lymphedema Discharge Data Allergies Allergy/AdvReac Type Severity Reaction Status Date / Time diphenhydramine AdvReac Severe ITCHING Verified 11/21/21 18:14 [From Benadryl] lisinopril AdvReac Mild FATIGUE Verified 11/21/21 18:14 losartan AdvReac Unknown FATIGUE, Verified 11/21/21 18:14 CHEST PAIN acetaminophen [From Percocet] AdvReac Confusion Verified 11/21/21 18:14 oxycodone [From Percocet] AdvReac Confusion Verified 11/21/21 18:14 Consultations 12/12/21 14:48 ED Decision to Admit Stat 12/13/21 08:43 Consult Oncology Routine Ordered Studies 12/12/21 10:59 CT head/brain wo con Stat Hospital Course (1) Pre-syncope: Secondary to severe anemia due to AML and recent chemotherapy. Blood pressure now stable and metoprolol has been restarted. He received 2 units of packed red blood cells on admission, Hgb 6.7 to 8.3, stable at 8.3 on discharge. No further syncopal events since admission (2) Pancytopenia: Platelet count however dropped to 11,000 and he received platelet transfusion on 12/13, increased to 25 but dropped to 10 on day of discharge. Severe leukopenia 0.2-0.3 during stay, 0.28 on day of discharge. No concern for acute bleeding during stay. Pancytopenia is due to recent antineoplastic treatment for AML as well as AML itself. (3) AML (acute myeloblastic leukemia): Recent diagnosis in the last several weeks. Recently discharged from [facility] a couple of days prior to this admission after induction chemotherapy with Dacogen and venetoclax. Oncology consultation requested. Serial lab studies. Continue prophylactic levofloxacin, acyclovir, and voriconazole while severely neutropenic. Oncology consult still pending at time of discharge, however pt does have appointment with [facility] oncology scheduled for 12/16 -He was discharged with a script for the above prophylactic medications (4) Aortic stenosis: Moderate on echocardiogram from 07/2021, preserved EF. (5) Arteriosclerotic coronary artery disease: Status post CABG. Held antiplatelet and statin due to thrombocytopenia as per discharge summary from [facility]. Metoprolol restarted on 12/13, since blood pressure has stabilized. No ischemic changes on ECG, troponin here is negative (6) Benign enlargement of prostate: No acute issues. (7) Dyslipidemia: Held statin as above due to thrombocytopenia. (8) Carotid artery plaque: Reportedly 50%. Follow as an outpatient. Held statin and antiplatelet due to anemia (9) Hypertension: Metoprolol restarted 12/13 Total Time Total Time Spent Total Time Spent (In Minutes): 30 Discharge Plan Discharge Items Patient Disposition: Home - Self-Care Reason For Visit: PRESYNCOPE, SYMTOMATIC ANEMIA Discharge Diagnosis: Syncope with anemia due to chemotherapy treatment Activity: Resume your previous activity Non-emergency contact: Primary Care Provider and Oncologist Call non-emergency contact if: you have any medication questions, your symptoms worsen and you have a fever Follow-up/Referrals: Janelle Dodd PA-C [Primary Care Provider] - 12/27/21 11:00 am Diet: Regular Addtl Attending Provider Instructions: You were admitted to the hospital for passing out, which was due to very low blood count caused by side effect from your chemotherapy for the leukemia. Your platelets (responsible for blood clotting) were also low for the same reason. Your blood count stabilized after transfusions and thankfully you are stable for discharge. A discharge summary will be sent to your primary care physician to ensure continuity of care. Please bring this discharge summary with you to your next office appointment so that your provider can review it at that time. Medications: Your medication list has been reviewed and reconciled upon discharge to ensure accuracy and continuity of care. An updated list of all your medications is included with your hospital discharge paperwork. Please review this list closely, and make note of any changes. We sent medications to the pharmacy to prevent infection. These are voriconazole (taken twice a day), acyclovir (taken twice a day), levofloxacin (taken once a day). I sent a week supply for all but if your doctor tomorrow says they don't need to be continued, then it's ok to stop. Take your medications as instructed; do not skip a dose of your medicines. Make sure all of your doctors know every medicine you are taking (including tdnu-fib-zhtnbxa medicines, vitamins, and supplements). Call your primary care provider before taking any new medicines (including cfvm-soo-rktfxkh medicines, vitamins, and supplements), because some of these may interact with your current medications, or may make your symptoms worse. Tell your primary care provider if you cannot afford your medications. CONTACT YOUR PRIMARY CARE PROVIDER if you experience any of the following: Fever Lightheadedness Dizziness Pain Diarrhea Nausea/vomiting Difficulty following your treatment plan, or difficulty taking medications CALL 911 OR GO TO THE EMERGENCY DEPARTMENT if you experience any of the following: Sudden, severe abdominal pain or nausea/vomiting Severe chest pain, or chest pain that radiates (moves) to your jaw or arm Sudden, severe shortness of breath or difficulty breathing Thank you for allowing us to participate in your care. Pending Studies at Discharge: No Stand-Alone Forms: [facility] Medications and DC Order Prescriptions: New acyclovir 400 mg Tablet 400 mg PO BID Qty: 14 0RF levofloxacin 500 mg Tablet 500 mg PO QAM Qty: 7 0RF voriconazole [Vfend] 200 mg Tablet 200 mg PO BID Qty: 14 0RF Continued rosuvastatin 40 mg tablet 40 mg PO DAILY Qty: 90 2RF ascorbic acid (vitamin C) 500 mg tablet 500 mg PO BID nitroglycerin 0.4 mg tablet, sublingual 0.4 mg SL Q5M PRN (Reason: Chest Pain) Qty: 1 Rx Instructions: NEEDED FOR CHEST PAIN : ONE TABLET UNDER THE TONGUE EVERY 5 MINUTES UP TO THREE DOSES. acyclovir 400 mg tablet 400 mg PO .AM &HS allopurinol 300 mg tablet 300 mg PO QAM amlodipine 2.5 mg tablet 2.5 mg PO QAM levofloxacin 500 mg tablet 500 mg PO QAM metoprolol succinate 100 mg tablet extended release 24 hr 100 mg PO QAM polyethylene glycol 3350 17 gram Powder In Packet 17 g PO DAILY PRN (Reason: Constipation) cyanocobalamin (vitamin B-12) 1,000 mcg Capsule 1,000 mcg PO QAM voriconazole 200 mg tablet 200 mg PO BID Venclexta 100 mg tablet 100 mg PO QAM ondansetron 4 mg Tablet,Disintegrating 4 mg PO Q6H PRN (Reason: Nausea) sildenafil [Viagra] 50 mg Tablet 50 mg PO DAILY PRN (Reason: Sexual Activity) Rx Instructions: administer 30 minutes to 4 hours before activity Discharge Orders: Discharge Order (Routine); Ordered 12/15/21 Ordered By: Shirley Roth Admission Data Admit Date/Time: 12/12/21 16:11 Attending Provider: Emilio Calderón Admit Provider: Denice Patel Primary Care Provider: Janelle Dodd Other Providers: Denice Patel ; Everardo Sanchez ; Jacki Traylor Other Interventions: Discharge Summary Assessment (RN) Last Done: 12/15/21 12:55 Supervising Physician Co-Signing Physician Notes I personally examined the patient and verified all lópez points of history and exam, discussed case, and agree with decision making with Dr Roth Feeling okay, feeling up to going home. No focal complaints. Notes that he was to have heme-onc follow-up tomorrowbut it was apparently canceled. Vitals noted, in general he is awake and alert pleasant no distress. HEENT normocephalic atraumatic mucous membranes moist. Breathing unlabored no accessory muscle use good effort. Skin shows no rashes no pallor or icterus. Neuro without focal deficits. Pancytopenia/immune suppression related to AML related chemotherapycontinue systemic coverage with antibiotics/antiviral/antifungalto have outpatient heme- onc follow-up ideally tomorrow if it can be rescheduled, in the next few days at the latest. Otherwise as above Resident Activity Tracking Resident Involvement: Resident Care Provided Care Provided: Adult Hospital Medicine
--- NOTE | 2021-12-15 22:10 | Billing Data ---
Date of Service December 15, 2021 Coding Level of Care Code D/C DAY MANAGEMENT <30 MINS
== END 2021-12-15 14:29 | disposition home or self-care (01) | DRG 809 ==
LOC: ED 10:35 → SUATTDRO 16:11 → 4W 16:11

== ENCOUNTER 2022-01-21 09:05 | Inpatient (IN) ==
[2022-01-21] MEDS ORDERED: SODIUM CHLORIDE 0.9% 1000ML 1,000 ML IV ONE (09:28)
[2022-01-21 09:48] LABS: INR 1.4 (0.9-1.1); Prothrombin Time 14.6 Seconds (9.0-12.0)
[2022-01-21 09:53] LABS: Hematocrit (blood only) 19.8 % (40.1-51.0); Mean Corpuscular Hemoglobin 29.9 pg (25.0-34.0); Mean Corpuscular Hgb Conc 35.4 g/dL (32.0-36.0); Mean Corpuscular Volume 84.6 fL (80.0-100.0); Mean Platelet Volume 8.9 fL (9.4-12.4); Platelet Count 11 K/uL (130-400); RDW Coefficient of Variation 13.2 % (11.5-14.5); RDW Standard Deviation 40.5 fL (36.4-46.3); Red Blood Count 2.34 M/uL (4.63-6.08)
[2022-01-21] MEDS ORDERED: SODIUM CHLORIDE 0.9% 250 ML IV PRN (09:57)
[2022-01-21 10:02] LABS: BUN Creatinine Ratio 12.1 (10-20); Calcium 7.3 mg/dl (8.5-10.1); Creatinine Clr Calc Pharmacy 47.5 ml/min; Est GFR (African American) 64.1 ml/min; Est GFR (Non-African American) 55.3 ml/min; Potassium 3.3 mmol/L (3.5-5.1)
[2022-01-21 10:03] LABS: Albumin Globulin Ratio 0.7 (0.9-2); Albumin Level 2.2 gm/dl (3.4-5.0); Bilirubin,Total 0.6 mg/dl (0.2-1.0); Globulin 3.3 gm/dl (2.5-4.0); Magnesium 2.1 mg/dl (1.7-2.4); Phosphorus 2.2 mg/dl (2.5-4.9); Total Protein 5.5 gm/dl (6.0-8.3)
--- NOTE | 2022-01-21 10:07 | Emergency Department Note ---
Impression & Plan Symptomatic anemia, Pancytopenia, Rhabdomyolysis, Transaminitis, Elevated troponin, AML (acute myeloblastic leukemia), Severe thrombocytopenia ED Provider Note NAME: ELIAZAR JOYCE AGE: 76 SEX: M ARRIVES VIA: Ambulance INFORMANT: Patient ED PROVIDER(S): Sam Sanchez MD CHIEF COMPLAINT: Weakness, dizziness, AML PLAN: Disposition: Admit MEDICAL DECISION MAKING: The patient is a pleasant 76-year-old gentleman with a past medical history of AML on chemotherapy, history of CAD with history of CABG, aortic stenosis, hypertension, hyperlipidemia, Emergency Department via EMS from home for cute onset generalized weakness and dizziness when he was moving his bowels and then was attempting to take a shower. The patient reports that he correlates onset of weakness related to taking his evening oral medications for his cancer treatment. He is unsure of the name of the medications. He reports he was admitted to this facility in December for similar weakness and was noted to have low blood counts requiring blood transfusion. Denies any recent fevers, cough, congestion, chest pain or shortness of breath. He is admit that he probably has not been hydrating enough. Patient was noted to be hypotensive upon EMS evaluation and was given IV fluid resuscitation that was fluid responsive and was discussed with this provider upon medical command call. On arrival the patient is ill-appearing but no distress, afebrile with heart rate 90s and blood pressure 90s/50s. He appears clinically dry. EKG without overt acute ischemia. CXR negative for acute cardiopulmonary process. Pancytopenia is again noted with values downtrending from last admission at the beginning of December with leukopenia/neutropenia with WBC of 0.1. H/H 7/19.8 downtrending from 3.3/23.9 last month. Platelets 11K down from 15k last month. Patient has no signs or symptoms of acute bleeding and so platelet transfusion was deferred at this time. Chemistry without metabolic acidosis. CPK was elevated at 3400 likely explaining a component of patient's weakness and may also further explain patient's transaminitis with AST, ALT and alk phos 159, 105 and 183, respectively. High-sensitivity troponin 139.7, nonspecific. Lipase is not elevated. UA appears contaminated without overt evidence of infection. COVID-19 RNA, ROBERT test was negative. CT of the CT L spine were negative for acute findings. Incidental note is made of 3.6 cm infrarenal aortic aneurysm. Mediastinal lymphadenopathy is also noted. Patient was consented for blood transfusion given his symptomatic anemia. He agrees with plan for admission for further management. Triage Nursing notes reviewed and agree them. Prior medical records reviewed Vital Signs: reviewed and remarkable for hypotension. Differential diagnosis: Infection, dehydration, metabolic abnormality, hypo/hyperglycemia, electrolyte disturbance, anemia, hypoxia, cardiac sources, intracerebral event, toxicologic, neurologic, as well as other pathologies. ER treatment provided: See below. Diagnostics interpreted by me: Cardiac Monitoring: An order for continuous cardiac monitoring was placed and demonstrated NSR, 84 bpm, no ectopy, no overt ST elevation or depression. Laboratory studies: See below Imaging studies: See below HPI: The patient is a pleasant 76-year-old gentleman with a past medical history of AML on chemotherapy, history of CAD with history of CABG, aortic stenosis, hypertension, hyperlipidemia, Emergency Department via EMS from home for cute onset generalized weakness and dizziness when he was moving his bowels and then was attempting to take a shower. The patient reports that he correlates onset of weakness related to taking his evening oral medications for his cancer treatment. He is unsure of the name of the medications. He reports he was admitted to this facility in December for similar weakness and was noted to have low blood counts requiring blood transfusion. Denies any recent fevers, cough, congestion, chest pain or shortness of breath. He is admit that he probably has not been hydrating enough. Patient was noted to be hypotensive up on EMS evaluation and was given IV fluid resuscitation that was fluid responsive and was discussed with this provider upon medical command call. ROS: See above HPI for pertinent positives & negatives. A total of 10 systems reviewed and were otherwise negative. VITALS:See Below PHYSICAL EXAMINATION: GENERAL: Awake, alert, ill-appearing, in no distress HENT: Normocephalic, atraumatic. Oropharynx with dry mucous membranes and otherwise unremarkable. EYES: Normal conjunctiva. Sclera non-icteric. EOMI. No nystamgus. PEARRL. NECK: Supple. No nuchal rigidity. FROM. No JVD. RESPIRATORY: Clear to auscultation. CARDIAC: Regular rate, normal rhythm. Extremities warm and well perfused. Pulses equal. ABDOMEN: Soft, non-distended. No tenderness to palpation. No rebound or guarding. No masses. RECTAL: Deferred. MUSCULOSKELETAL: Chest examination reveals no tenderness. The back is symmetrical on inspection without obvious abnormality. There is no CVA tenderness to palpation. No joint edema. Compartments are soft. LOWER EXTREMITIES: Calves are equal size bilaterally and non-tender. No edema. No discoloration. NEURO: Normal sensorium. No sensory or motor deficits noted. Generalized weakness throughout but increased in bilateral lower extremities with 4/5 strength. Reflexes within normal limits. No clonus. SKIN: Mild pallor. No rash or jaundice noted. ED COURSE: Critical Care: I have personally spent greater than 55 minutes of critical care time in the direct management of this patient. This includes bedside care, interpretation of diagnostic studies, and testing, discussion with consultants, patient, and family members, and other required patient management activities. This 55 minutes is in excess of all separately billable procedures. aSm Sanchez MD Past Med/Surg History Medical History AML (acute myeloblastic leukemia) Aortic stenosis Arteriosclerotic coronary artery disease Benign enlargement of prostate Carotid artery plaque Dyslipidemia Hypertension Past myocardial infarction Tubulovillous adenoma of colon Surgical History History of cardiac cath cath stent 1 first obtuse marginal branch, type bare metal cath stent 2 first saphenous vein graft, type drug-eluting History of colonoscopy History of coronary artery bypass graft x 3 History of hemorrhoidectomy S/P CABG x 3 Family History Brother Coronary heart disease 5 brothers Father Myocardial infarction Denies family history of Ovarian cancer Prostate cancer Breast cancer Colorectal cancer Lung disease Social History Smoking Status: Never smoker Tobacco Type: Cigarettes Age Started Using Tobacco: 14; Age Quit Using Tobacco: 21; packs per day: 1; Years Smoked: 7; Second Hand Exposure: No; Hx Alcohol Use: No Hx Substance Use: No Preferred Language: Iraqi Communication Ability: Effective Visual Impairment: Limited Hearing Ability: Use of Hearing Aid Field Cane Scaler Required: No Beliefs That Will Affect Care: None marital status: Current Living Situation: Spouse current occupational status: employed 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 How many Children do You have: 4 Feels Safe at Home: Yes Childhood Exposure to Second-Hand Smoke: No caffeine: Yes (cup of coffee in morning ) Dental Care, Regularly: No Physical Activity Frequency: Daily Seatbelt Use: always Sunscreen Use: Yes Assistive Devices: None Allergies Allergies Allergy/AdvReac Type Severity Reaction Status Date / Time diphenhydramine AdvReac Severe ITCHING Verified 01/19/22 12:02 [From Benadryl] losartan AdvReac Intermediate FATIGUE, Verified 01/19/22 12:02 CHEST PAIN oxycodone [From Percocet] AdvReac Intermediate Confusion Verified 01/19/22 12:02 lisinopril AdvReac Mild FATIGUE Verified 01/19/22 12:02 Home Meds Home Medications Medication Instructions Recorded Confirmed ascorbic acid (vitamin C) 500 mg 500 mg PO BID 02/11/19 01/16/22 tablet nitroglycerin 0.4 mg sublingual 0.4 mg sublingual Q5M PRN Chest 02/11/19 01/16/22 tablet Pain #1 tab amlodipine 2.5 mg tablet 2.5 mg PO QAM 12/12/21 01/16/22 cyanocobalamin (vitamin B-12) 1,000 mcg PO QAM 12/12/21 01/16/22 1,000 mcg capsule metoprolol succinate 100 mg 100 mg PO QAM 12/12/21 01/16/22 tablet,extended release 24 hr ondansetron 4 mg disintegrating 4 mg PO Q6H PRN Nausea 12/12/21 01/16/22 tablet polyethylene glycol 3350 17 gram 17 g PO DAILY PRN Constipation 12/12/21 01/16/22 oral powder packet venetoclax 100 mg tablet 100 mg PO QAM 12/12/21 01/16/22 (Venclexta) rosuvastatin 40 mg tablet (Crestor) 40 mg PO DAILY 01/05/22 01/16/22 Previous Rx's Medication Instructions Recorded acyclovir 400 mg tablet 400 mg PO BID #14 tabs 12/15/21 levofloxacin 500 mg tablet 500 mg PO QAM #7 tabs 12/15/21 allopurinol 300 mg tablet 300 mg PO QAM #30 tabs 01/04/22 voriconazole 200 mg tablet (Vfend) 200 mg PO BID #14 tabs 01/19/22 Results & Data (ED) Vital Signs Vital Signs - 24 hr 01/21/22 09:03 01/21/22 09:33 01/21/22 09:35 Temperature 37.5 C Temperature Source Oral Pulse Rate 95 H Pulse Rate [Finger] 95 H Pulse Rate from SpO2 Sensor Respiratory Rate 16 16 Blood Pressure 93/52 L Blood Pressure [Right Arm] 95/60 L Blood Pressure Mean 65 Blood Pressure Mean [Right Arm] 71 Pulse Oximetry 96 88 L 95 Oxygen Delivery Method Room Air Room Air Nasal Cannula Oxygen Flow Rate 2 Sepsis Recent Fever Within 48 Hours Yes Sepsis New/Unexplained Change in Mental Status N/A Sepsis Action Taken by Nursing No Action Required 01/21/22 10:31 01/21/22 11:11 01/21/22 09:16 Temperature 37.5 C Temperature Source Oral Pulse Rate 96 H Pulse Rate [Finger] 86 86 Pulse Rate from SpO2 Sensor 96 H Respiratory Rate 20 18 16 Blood Pressure Blood Pressure [Right Arm] 98/56 L Blood Pressure Mean Blood Pressure Mean [Right Arm] 70 Pulse Oximetry 97 98 93 Oxygen Delivery Method Nasal Cannula Nasal Cannula Oxygen Flow Rate 2 2 Sepsis Recent Fever Within 48 Hours Sepsis New/Unexplained Change in Mental Status Sepsis Action Taken by Nursing 01/21/22 09:30 01/21/22 09:30 01/21/22 09:45 Temperature Temperature Source Pulse Rate 93 H 93 H Pulse Rate [Finger] Pulse Rate from SpO2 Sensor 94 H 93 H Respiratory Rate 25 H 21 Blood Pressure 95/60 L Blood Pressure [Right Arm] Blood Pressure Mean 71 Blood Pressure Mean [Right Arm] Pulse Oximetry 90 95 Oxygen Delivery Method Oxygen Flow Rate Sepsis Recent Fever Within 48 Hours Sepsis New/Unexplained Change in Mental Status Sepsis Action Taken by Nursing 01/21/22 10:00 01/21/22 10:00 01/21/22 10:20 Temperature Temperature Source Pulse Rate 88 Pulse Rate [Finger] Pulse Rate from SpO2 Sensor 88 87 Respiratory Rate 22 Blood Pressure 97/55 L Blood Pressure [Right Arm] Blood Pressure Mean 69 Blood Pressure Mean [Right Arm] Pulse Oximetry 97 98 Oxygen Delivery Method Oxygen Flow Rate Sepsis Recent Fever Within 48 Hours Sepsis New/Unexplained Change in Mental Status Sepsis Action Taken by Nursing 01/21/22 10:30 01/21/22 10:30 01/21/22 10:45 Temperature Temperature Source Pulse Rate 88 85 Pulse Rate [Finger] Pulse Rate from SpO2 Sensor 88 Respiratory Rate 24 22 Blood Pressure 98/56 L Blood Pressure [Right Arm] Blood Pressure Mean 70 Blood Pressure Mean [Right Arm] Pulse Oximetry 97 Oxygen Delivery Method Oxygen Flow Rate Sepsis Recent Fever Within 48 Hours Sepsis New/Unexplained Change in Mental Status Sepsis Action Taken by Nursing 01/21/22 11:11 01/21/22 11:15 01/21/22 11:22 Temperature Temperature Source Pulse Rate 85 86 Pulse Rate [Finger] Pulse Rate from SpO2 Sensor 86 86 Respiratory Rate 22 17 Blood Pressure 100/55 L Blood Pressure [Right Arm] Blood Pressure Mean 70 Blood Pressure Mean [Right Arm] Pulse Oximetry 98 99 Oxygen Delivery Method Oxygen Flow Rate Sepsis Recent Fever Within 48 Hours Sepsis New/Unexplained Change in Mental Status Sepsis Action Taken by Nursing 01/21/22 11:22 01/21/22 11:30 01/21/22 11:45 Temperature Temperature Source Pulse Rate 87 86 84 Pulse Rate [Finger] Pulse Rate from SpO2 Sensor 87 86 84 Respiratory Rate 24 23 22 Blood Pressure Blood Pressure [Right Arm] Blood Pressure Mean Blood Pressure Mean [Right Arm] Pulse Oximetry 97 98 98 Oxygen Delivery Method Oxygen Flow Rate Sepsis Recent Fever Within 48 Hours Sepsis New/Unexplained Change in Mental Status Sepsis Action Taken by Nursing Laboratory Data Attestation: I reviewed the patient's lab results. Result diagrams: 01/21/22 09:16 01/21/22 09:16 Lab Results 01/21/22 01/21/22 01/21/22 Range/Units 09:16 09:16 09:16 WBC 0.10 L* (4.8-10.8) K/ul RBC 2.34 L (4.63-6.08) M/uL Hgb 7.0 L (14.0-18.0) g/dl Hct 19.8 L* (40.1-51.0) % MCV 84.6 (80.0-100.0) fL MCH 29.9 (25.0-34.0) pg MCHC 35.4 (32.0-36.0) g/dL RDW Std Deviation 40.5 (36.4-46.3) fL RDW Coeff of Marty 13.2 (11.5-14.5) % Plt Count 11 L* (130-400) K/uL MPV 8.9 L (9.4-12.4) fL Immature Gran % (Auto) Cancelled Neut % (Auto) Cancelled Lymph % (Auto) Cancelled [place] % (Auto) Cancelled Eos % (Auto) Cancelled Baso % (Auto) Cancelled Neut # (Auto) Cancelled Lymph # (Auto) Cancelled [place] # (Auto) Cancelled Eos # (Auto) Cancelled Baso # (Auto) Cancelled Immature Gran # (Auto) Cancelled Neutrophils % (Manual) Cancelled Band Neutrophils % Cancelled Lymphocytes % (Manual) Cancelled Prolymphocyte % Cancelled Reactive Lymphs % (Man) Cancelled Monocytes % (Manual) Cancelled Eosinophils % (Manual) Cancelled Basophils % (Manual) Cancelled Metamyelocytes % (Man) Cancelled Myelocytes % (Man) Cancelled Promyelocytes % (Man) Cancelled Blast Cells % (Manual) Cancelled Plasma Cell % (Manual) Cancelled Other Cells % Cancelled Nucleated RBC % Cancelled Neutrophils # (Manual) Cancelled Band Neutrophils # Cancelled Total Absolute Neuts Cancelled Lymphocytes # (Manual) Cancelled Prolymphocyte # Cancelled Reactive Lymphs # Cancelled Total Abs Lymphocytes Cancelled Monocytes # (Manual) Cancelled Eosinophils # (Manual) Cancelled Basophils # (Manual) Cancelled Metamyelocytes # (Man) Cancelled Myelocytes # (Manual) Cancelled Promyelocytes # (Man) Cancelled Blast Cells # (Man) Cancelled Plasma Cell # (Manual) Cancelled Other Cells # Cancelled Nucleated RBCs # (Man) Cancelled Hypersegmented Neuts Cancelled Hyposegmented Neuts Cancelled Hypogranular Neuts Cancelled Large Granular Lymphs Cancelled # Lrg Granular Lymphs Cancelled Hairy Cells Cancelled Smudge Cells Cancelled Toxic Granulation Cancelled Toxic Vacuolation Cancelled Dohle Bodies Cancelled Alyssa Rods Cancelled Hypogranular Platelets Cancelled Clumped Platelets Cancelled Giant Platelets Cancelled Platelet Satelliting Cancelled RBC Morphology Cancelled Polychromasia Cancelled Hypochromasia Cancelled Poikilocytosis Cancelled Basophilic Stippling Cancelled Anisocytosis Cancelled Microcytosis Cancelled Macrocytosis Cancelled Spherocytes Cancelled Pappenheimer Bodies Cancelled Sickle Cells Cancelled Target Cells Cancelled Tear Drop Cells Cancelled Ovalocytes Cancelled Stomatocytes Cancelled [place] Bodies Cancelled Echinocytes Cancelled Acanthocytes (Spur) Cancelled Rouleaux Cancelled RBC Agglutinates Cancelled Schistocytes Cancelled Sezary Cell Cancelled PT 14.6 H (9.0-12.0) Seconds INR 1.4 H (0.9-1.1) Sodium 137 (136-145) mmol/L Potassium 3.3 L (3.5-5.1) mmol/L Chloride 106 (98-107) mmol/L Carbon Dioxide 21 (21-32) mmol/L Anion Gap 10 (3-11) BUN 15 (6-23) mg/dl Creatinine 1.24 (0.6-1.4) mg/dl Est Cr Clr Drug Dosing 47.5 ml/min Est GFR ( Amer) 64.1 ml/min Est GFR (Non-Af Amer) 55.3 ml/min BUN/Creatinine Ratio 12.1 (10-20) Glucose 106 H (70-99(Fasting)) mg/dl Uric Acid (2.6-7.2) mg/dl Calcium 7.3 L (8.5-10.1) mg/dl Phosphorus 2.2 L (2.5-4.9) mg/dl Magnesium 2.1 (1.7-2.4) mg/dl Total Bilirubin 0.6 (0.2-1.0) mg/dl AST 159 H (13-39) U/L ALT 105 H (7-52) U/L Alkaline Phosphatase 183 H (34-104) U/L Total Creatine Kinase 3491 H (30-223) U/L Troponin I High Sens 139.7 H* D (0-20) pg/ml Total Protein 5.5 L (6.0-8.3) gm/dl Albumin 2.2 L (3.4-5.0) gm/dl Globulin 3.3 (2.5-4.0) gm/dl Albumin/Globulin Ratio 0.7 L (0.9-2) Lipase 9 L (11-82) U/L Procalcitonin (0-0.5) ng/ml SARS-CoV-2, RNA, NAAT (NEGATIVE) Blood Parasites ID Cancelled Blood Type Antibody Screen Crossmatch 01/21/22 01/21/22 01/21/22 Range/Units 09:16 09:16 09:16 WBC (4.8-10.8) K/ul RBC (4.63-6.08) M/uL Hgb (14.0-18.0) g/dl Hct (40.1-51.0) % MCV (80.0-100.0) fL MCH (25.0-34.0) pg MCHC (32.0-36.0) g/dL RDW Std Deviation (36.4-46.3) fL RDW Coeff of Marty (11.5-14.5) % Plt Count (130-400) K/uL MPV (9.4-12.4) fL Immature Gran % (Auto) Neut % (Auto) Lymph % (Auto) [place] % (Auto) Eos % (Auto) Baso % (Auto) Neut # (Auto) Lymph # (Auto) [place] # (Auto) Eos # (Auto) Baso # (Auto) Immature Gran # (Auto) Neutrophils % (Manual) Band Neutrophils % Lymphocytes % (Manual) Prolymphocyte % Reactive Lymphs % (Man) Monocytes % (Manual) Eosinophils % (Manual) Basophils % (Manual) Metamyelocytes % (Man) Myelocytes % (Man) Promyelocytes % (Man) Blast Cells % (Manual) Plasma Cell % (Manual) Other Cells % Nucleated RBC % Neutrophils # (Manual) Band Neutrophils # Total Absolute Neuts Lymphocytes # (Manual) Prolymphocyte # Reactive Lymphs # Total Abs Lymphocytes Monocytes # (Manual) Eosinophils # (Manual) Basophils # (Manual) Metamyelocytes # (Man) Myelocytes # (Manual) Promyelocytes # (Man) Blast Cells # (Man) Plasma Cell # (Manual) Other Cells # Nucleated RBCs # (Man) Hypersegmented Neuts Hyposegmented Neuts Hypogranular Neuts Large Granular Lymphs # Lrg Granular Lymphs Hairy Cells Smudge Cells Toxic Granulation Toxic Vacuolation Dohle Bodies Alyssa Rods Hypogranular Platelets Clumped Platelets Giant Platelets Platelet Satelliting RBC Morphology Polychromasia Hypochromasia Poikilocytosis Basophilic Stippling Anisocytosis Microcytosis Macrocytosis Spherocytes Pappenheimer Bodies Sickle Cells Target Cells Tear Drop Cells Ovalocytes Stomatocytes [place] Bodies Echinocytes Acanthocytes (Spur) Rouleaux RBC Agglutinates Schistocytes Sezary Cell PT (9.0-12.0) Seconds INR (0.9-1.1) Sodium (136-145) mmol/L Potassium (3.5-5.1) mmol/L Chloride (98-107) mmol/L Carbon Dioxide (21-32) mmol/L Anion Gap (3-11) BUN (6-23) mg/dl Creatinine (0.6-1.4) mg/dl Est Cr Clr Drug Dosing ml/min Est GFR ( Amer) ml/min Est GFR (Non-Af Amer) ml/min BUN/Creatinine Ratio (10-20) Glucose (70-99(Fasting)) mg/dl Uric Acid 1.8 L (2.6-7.2) mg/dl Calcium (8.5-10.1) mg/dl Phosphorus (2.5-4.9) mg/dl Magnesium (1.7-2.4) mg/dl Total Bilirubin (0.2-1.0) mg/dl AST (13-39) U/L ALT (7-52) U/L Alkaline Phosphatase (34-104) U/L Total Creatine Kinase (30-223) U/L Troponin I High Sens (0-20) pg/ml Total Protein (6.0-8.3) gm/dl Albumin (3.4-5.0) gm/dl Globulin (2.5-4.0) gm/dl Albumin/Globulin Ratio (0.9-2) Lipase (11-82) U/L Procalcitonin 1.42 H (0-0.5) ng/ml SARS-CoV-2, RNA, NAAT NEGATIVE (NEGATIVE) Blood Parasites ID Blood Type Antibody Screen Crossmatch 01/21/22 Range/Units 10:32 WBC (4.8-10.8) K/ul RBC (4.63-6.08) M/uL Hgb (14.0-18.0) g/dl Hct (40.1-51.0) % MCV (80.0-100.0) fL MCH (25.0-34.0) pg MCHC (32.0-36.0) g/dL RDW Std Deviation (36.4-46.3) fL RDW Coeff of Marty (11.5-14.5) % Plt Count (130-400) K/uL MPV (9.4-12.4) fL Immature Gran % (Auto) Neut % (Auto) Lymph % (Auto) [place] % (Auto) Eos % (Auto) Baso % (Auto) Neut # (Auto) Lymph # (Auto) [place] # (Auto) Eos # (Auto) Baso # (Auto) Immature Gran # (Auto) Neutrophils % (Manual) Band Neutrophils % Lymphocytes % (Manual) Prolymphocyte % Reactive Lymphs % (Man) Monocytes % (Manual) Eosinophils % (Manual) Basophils % (Manual) Metamyelocytes % (Man) Myelocytes % (Man) Promyelocytes % (Man) Blast Cells % (Manual) Plasma Cell % (Manual) Other Cells % Nucleated RBC % Neutrophils # (Manual) Band Neutrophils # Total Absolute Neuts Lymphocytes # (Manual) Prolymphocyte # Reactive Lymphs # Total Abs Lymphocytes Monocytes # (Manual) Eosinophils # (Manual) Basophils # (Manual) Metamyelocytes # (Man) Myelocytes # (Manual) Promyelocytes # (Man) Blast Cells # (Man) Plasma Cell # (Manual) Other Cells # Nucleated RBCs # (Man) Hypersegmented Neuts Hyposegmented Neuts Hypogranular Neuts Large Granular Lymphs # Lrg Granular Lymphs Hairy Cells Smudge Cells Toxic Granulation Toxic Vacuolation Dohle Bodies Alyssa Rods Hypogranular Platelets Clumped Platelets Giant Platelets Platelet Satelliting RBC Morphology Polychromasia Hypochromasia Poikilocytosis Basophilic Stippling Anisocytosis Microcytosis Macrocytosis Spherocytes Pappenheimer Bodies Sickle Cells Target Cells Tear Drop Cells Ovalocytes Stomatocytes [place] Bodies Echinocytes Acanthocytes (Spur) Rouleaux RBC Agglutinates Schistocytes Sezary Cell PT (9.0-12.0) Seconds INR (0.9-1.1) Sodium (136-145) mmol/L Potassium (3.5-5.1) mmol/L Chloride (98-107) mmol/L Carbon Dioxide (21-32) mmol/L Anion Gap (3-11) BUN (6-23) mg/dl Creatinine (0.6-1.4) mg/dl Est Cr Clr Drug Dosing ml/min Est GFR ( Amer) ml/min Est GFR (Non-Af Amer) ml/min BUN/Creatinine Ratio (10-20) Glucose (70-99(Fasting)) mg/dl Uric Acid (2.6-7.2) mg/dl Calcium (8.5-10.1) mg/dl Phosphorus (2.5-4.9) mg/dl Magnesium (1.7-2.4) mg/dl Total Bilirubin (0.2-1.0) mg/dl AST (13-39) U/L ALT (7-52) U/L Alkaline Phosphatase (34-104) U/L Total Creatine Kinase (30-223) U/L Troponin I High Sens (0-20) pg/ml Total Protein (6.0-8.3) gm/dl Albumin (3.4-5.0) gm/dl Globulin (2.5-4.0) gm/dl Albumin/Globulin Ratio (0.9-2) Lipase (11-82) U/L Procalcitonin (0-0.5) ng/ml SARS-CoV-2, RNA, NAAT (NEGATIVE) Blood Parasites ID Blood Type A Positive Antibody Screen NEGATIVE Crossmatch See Detail Administered Medications Acyclovir (Acyclovir 400 Mg Tab) 400 mg PO BID CHIKI Stop: 02/20/22 12:59 Last Admin: 01/21/22 21:14 Dose: 400 mg Documented By: Admin: 01/21/22 15:54 Dose: 400 mg Documented By: KASIE Ascorbic Acid (Ascorbic Acid 500 Mg Tab) 500 mg PO BID CHIKI Stop: 02/20/22 20:59 Last Admin: 01/21/22 21:14 Dose: 500 mg Documented By: MG Sodium Chloride (Nss 1000ml) 1,000 mls @ 125 mls/hr IV .Q8H CHIKI Stop: 01/22/22 13:14 Last Admin: 01/21/22 21:14 Dose: 125 mls/hr Documented By: MG Levofloxacin (Levofloxacin 500 Mg Tab) 500 mg PO QAM CHIKI Stop: 02/20/22 12:59 Last Admin: 01/21/22 15:54 Dose: 500 mg Documented By: KASIE Voriconazole (Voriconazole 200 Mg Tablet) 200 mg PO BID CHIKI Stop: 02/20/22 20:59 Last Admin: 01/21/22 21:14 Dose: 200 mg Documented By: MG Discontinued Medications Allopurinol (Allopurinol 300 Mg Tab) 300 mg PO NOW STA Stop: 01/21/22 13:30 Last Admin: 01/21/22 15:54 Dose: 300 mg Documented By: KASIE Sodium Chloride (Nss 1000ml) 1,000 mls @ 999 mls/hr IV .Q1H1M ONE Stop: 01/21/22 10:28 Last Admin: 01/21/22 09:36 Dose: Not Given Documented By: LILIAN Imaging Data Radiologist's Impression: Lumbar Spine CT 01/21/22 09:52 CT lumbar spine wo con CLINICAL HISTORY: AML, back pain, BLE weakness, near syncope COMPARISON STUDY: None available at time of interpretation due to PACS downtime. TECHNIQUE: Axial images of the lumbar spine were obtained. Sagittal and coronal reconstructions were viewed. No intravenous contrast was administered. Automated exposure control was utilized for the study. A dose lowering technique was utilized adhering to the principles of ALARA. FINDINGS: No acute lumbar spine fracture is present. Vertebral body heights are maintained. Severe multilevel facet arthrosis is present. There is mild multilevel disc space narrowing and osteophytosis. Mild anterolisthesis of L4 and L5 is due to facet arthrosis. A lucent lesion within L1 is likely benign. A cyst within the upper pole the right kidney is incidentally noted. 3.6 cm infrarenal abdominal aortic aneurysm is present. Central canal and neural foramen are suboptimally assessed given CT technique. IMPRESSION: 1. No acute lumbar spine fracture or subluxation. 2. 3.6 cm infrarenal abdominal aortic aneurysm. ACT 112: Negative or not required by law. Electronically signed by: Carlos Ozuna M.D. 01/21/2022 12:[address] 01/21/22 09:52 CT OF THE THORACIC SPINE CLINICAL HISTORY: AML, back pain, BLE weakness, near syncope COMPARISON STUDY: None available at time of interpretation due to PACS downtime. TECHNIQUE: Helical axial images of the thoracic spine were obtained. Sagittal and coronal reconstructions were viewed. Automated exposure control was utilized for the study. A dose lowering technique was utilized adhering to the principles of ALARA. FINDINGS: Calcified mediastinal and bilateral hilar lymph nodes are noted. Mildly enlarged right paratracheal lymph node is noted. Cardiomegaly is noted. There is a cyst within the upper pole of the right kidney. Innumerable small groundglass nodules throughout the lungs are present. Due to PACS downtime, comparison to prior chest CT cannot be made. No acute thoracic spine fracture is noted. A T2 sclerotic lesions probably benign. A mild compression deformity of the superior plate of T7 is likely old. There is no acute thoracic spine fracture. Central canal and neural foramen are suboptimally assessed by CT. There is moderate osteophytosis of the thoracic spine. IMPRESSION: 1. No acute thoracic spine fracture or subluxation. 2. Old mild T6 compression deformity. 3. Suboptimal evaluation of the central canal and neural foramen given CT technique. 4. Mild mediastinal lymphadenopathy. This is probably benign but can be assessed on subsequent exams to ensure stability. Innumerable ground glass nodules throughout the lungs can also be assessed on that study. ACT 112: Negative or not required by law. Electronically signed by: Carlos Ozuna M.D. 01/21/2022 11:31 AM Discharge Plan Visit Data Chief Complaint: Cardiac Assessment ED Provider: Sam Sanchez Discharge Problem: Symptomatic anemia, Pancytopenia, Rhabdomyolysis, Transaminitis, Elevated troponin, AML (acute myeloblastic leukemia), Severe thrombocytopenia Patient Disposition: Admitted As Inpatient Discharge Instructions Interventions: ED Discharge Assessment Last Done: 01/21/22 14:26
[2022-01-21 10:20] LABS: Troponin I High Sensitivity 139.7 pg/ml (0-20)
--- NOTE | 2022-01-21 10:37 | XRay Report ---
XR chest 1V portable CLINICAL HISTORY: Chest pain. COMPARISON STUDY: Chest CT November 22, 2021. Chest radiograph December 12, 2021. FINDINGS: There are median sternotomy wires and mediastinal surgical clips. Lung volumes are normal. Lungs are clear. There is no pneumothorax or pleural effusion. Cardiac size is normal. Mediastinal co ntours are normal. There is no evidence for pulmonary edema. IMPRESSION: No acute cardiopulmonary findings. ACT 112: Negative or not required by law. Electronically signed by: Carlos Ozuna M.D. 01/21/2022 10:34 AM
--- NOTE | 2022-01-21 10:41 | CT Scan Report ---
CT OF THE HEAD WITHOUT CONTRAST CLINICAL HISTORY: AML, BLE weakness, near syncope COMPARISON STUDY: Head CT December 12, 2021. TECHNIQUE: Helical axial images of the head were obtained without IV contrast. Automated exposure con trol was utilized for the study. A dose lowering technique was utilized adhering to the principles o f ALARA. FINDINGS: No acute intracranial hemorrhage, midline shift or mass effect is present. The ventricular system is unremarkable. The basal cisterns are patent. Appearance of the brain is unchanged. No extra -axial collections are present. There are no findings to suggest acute dural sinus thrombosis or acut e territorial infarct. There is no acute calvarial fracture. There is minimal sinus mucosal thickenin g. IMPRESSION: No acute intracranial findings. ACT 112: Negative or not required by law. Electronically signed by: Carlos Ozuna M.D. 01/21/2022 10:40 AM
--- NOTE | 2022-01-21 11:14 | CT Scan Report ---
CT OF THE CERVICAL SPINE WITHOUT CONTRAST CLINICAL HISTORY: AML, back pain, BLE weakness, near syncope COMPARISON STUDY: No previous studies for comparison. TECHNIQUE: Helical axial images of the cervical spine were obtained without IV contrast. Sagittal a nd coronal reconstructions were viewed. Automated exposure control was utilized for the study. A do se lowering technique was utilized adhering to the principles of ALARA. FINDINGS: There is reversal of the normal cervical lordosis. Vertebral body heights are maintained. N o acute cervical spine fracture or subluxation is present. There is no prevertebral edema. Facet join ts are intact. Moderate multilevel degenerative changes are present. Thoracic spine CT will be repor sara separately. Incidental note is made of small groundglass nodular opacities within the lung apices . IMPRESSION: No acute cervical spine fracture or subluxation. ACT 112: Negative or not required by law. Electronically signed by: Carlos Ozuna M.D. 01/21/2022 11:13 AM
--- NOTE | 2022-01-21 11:33 | CT Scan Report ---
CT OF THE THORACIC SPINE CLINICAL HISTORY: AML, back pain, BLE weakness, near syncope COMPARISON STUDY: None available at time of interpretation due to PACS downtime. TECHNIQUE: Helical axial images of the thoracic spine were obtained. Sagittal and coronal reconstru ctions were viewed. Automated exposure control was utilized for the study. A dose lowering techniqu e was utilized adhering to the principles of ALARA. FINDINGS: Calcified mediastinal and bilateral hilar lymph nodes are noted. Mildly enlarged right para tracheal lymph node is noted. Cardiomegaly is noted. There is a cyst within the upper pole of the rig ht kidney. Innumerable small groundglass nodules throughout the lungs are present. Due to PACS downti me, comparison to prior chest CT cannot be made. No acute thoracic spine fracture is noted. A T2 scle rotic lesions probably benign. A mild compression deformity of the superior plate of T7 is likely old . There is no acute thoracic spine fracture. Central canal and neural foramen are suboptimally assess ed by CT. There is moderate osteophytosis of the thoracic spine. IMPRESSION: 1. No acute thoracic spine fracture or subluxation. 2. Old mild T6 compression deformity. 3. Suboptimal evaluation of the central canal and neural foramen given CT technique. 4. Mild mediastinal lymphadenopathy. This is probably benign but can be assessed on subsequent exams to ensure stability. Innumerable ground glass nodules throughout the lungs can also be assessed on th at study. ACT 112: Negative or not required by law. Electronically signed by: Carlos Ozuna M.D. 01/21/2022 11:31 AM
[2022-01-21] MEDS ORDERED: NITROGLYCERIN SL 0.4 MG/TAB TAB SL PRN (11:53)
[2022-01-21] MEDS ORDERED: ONDANSETRON 4 MG OD TAB PO PRN (11:53)
[2022-01-21] MEDS ORDERED: POLYETHYLENE (MIRALAX) 17 GM PACK PO PRN (11:53)
--- NOTE | 2022-01-21 12:43 | CT Scan Report ---
CT lumbar spine wo con CLINICAL HISTORY: AML, back pain, BLE weakness, near syncope COMPARISON STUDY: None available at time of interpretation due to PACS downtime. TECHNIQUE: Axial images of the lumbar spine were obtained. Sagittal and coronal reconstructions were viewed. No intravenous contrast was administered. Automated exposure control was utilized for the ramírez dy. A dose lowering technique was utilized adhering to the principles of ALARA. FINDINGS: No acute lumbar spine fracture is present. Vertebral body heights are maintained. Severe mu ltilevel facet arthrosis is present. There is mild multilevel disc space narrowing and osteophytosis. Mild anterolisthesis of L4 and L5 is due to facet arthrosis. A lucent lesion within L1 is likely trudy ign. A cyst within the upper pole the right kidney is incidentally noted. 3.6 cm infrarenal abdominal aortic aneurysm is present. Central canal and neural foramen are suboptimally assessed given body art technician nique. IMPRESSION: 1. No acute lumbar spine fracture or subluxation. 2. 3.6 cm infrarenal abdominal aortic aneurysm. ACT 112: Negative or not required by law. Electronically signed by: Carlos Ozuna M.D. 01/21/2022 12:41 PM
[2022-01-21] MEDS ORDERED: allopurinoL 300 MG TAB PO STA (13:29)
--- NOTE | 2022-01-21 14:57 | History & Physical Report ---
Date of Service January 21, 2022 Assessment & Plan (1) Pancytopenia: Plan: Patient admitted with pancytopenia and generalized weakness. LIkely secondary to chemo agents. Patient does not appear to be in tumor lysis syndrome. Phos, uric acid potassium are not elevated. CONSULT HEMATOLOGY will transfuse 1 unit of PRBC recheck CBC in am likely will require platelets during hospital stay, consent obtained. (2) Symptomatic anemia: Plan: Patiien having generalized fatigue, and lower extremity weakness. will transfuse as above given concern over low perfusion and hypotension with anemia. will hold aml odipine will continue beta victoria metoprolol succinate 100 mg PO AM (3) Rhabdomyolysis: Plan: Patient's CK is elevatd at over 3000. Will hold statin medications. contiue aggressive IVF: nss 125 ML/HR, PATIENT ALSO GETTING BLOOD. (4) Transaminitis: Plan: LIKELY FROM RHABDOMYOLYSIS (5) Elevated troponin: Plan: Likely demand ischemia will monitor. (6) AML (acute myeloblastic leukemia): Plan: hold venetoclax as concern over possible neutropenic fever, patient does not any documented fevers as of now. will closely monitor. (7) Dyslipidemia: Plan: hold statin due to rhabdo (8) Hypertension: Plan: continue metoprolol (9) Carotid artery plaque: (10) Benign enlargement of prostate: Admission and Anticipated Discharge Date Admission Date: January 21, 2022 History of Present Illness Chief Complaint: generalized weakness Primary Care Provider: Janelle Dodd PA-C 76 yo male comes to the hospital with PMH of AML, on prophylactic medications: voriconazole, levofloxacin and acyclovir. Patient had a recent hospital stay (Early November) at [place] for induction fo chemotherapy with venetoclax and Dacogen. Patient was then admitted for pancytopenia at then end of November. Patient reports having worsening fatigue, lower extremity weakness. Patient states he had difficulty ambulating today after using the restroom which brought him to the hospital. HE HAS NOTICED LOWER EXTREMITY WEAKNESS FOR THE PAST FEW DAYS. Family reports that he has been having intermittent fevers of 100.6 for the past few weeks. IN the ER, patient appears comfortable, and is afebrile. Allergies Allergy/AdvReac Type Severity Reaction Status Date / Time diphenhydramine AdvReac Severe ITCHING Verified 01/19/22 12:02 [From Benadryl] losartan AdvReac Intermediate FATIGUE, Verified 01/19/22 12:02 CHEST PAIN oxycodone [From Percocet] AdvReac Intermediate Confusion Verified 01/19/22 12:02 lisinopril AdvReac Mild FATIGUE Verified 01/19/22 12:02 Home Medications Medication Instructions Recorded Confirmed Type ascorbic acid (vitamin C) 500 mg 500 mg PO BID 02/11/19 01/16/22 History tablet nitroglycerin 0.4 mg sublingual 0.4 mg sublingual Q5M PRN Chest 02/11/19 01/16/22 History tablet Pain #1 tab amlodipine 2.5 mg tablet 2.5 mg PO QAM 12/12/21 01/16/22 History cyanocobalamin (vitamin B-12) 1,000 mcg PO QAM 12/12/21 01/16/22 History 1,000 mcg capsule metoprolol succinate 100 mg 100 mg PO QAM 12/12/21 01/16/22 History tablet,extended release 24 hr ondansetron 4 mg disintegrating 4 mg PO Q6H PRN Nausea 12/12/21 01/16/22 History tablet polyethylene glycol 3350 17 gram 17 g PO DAILY PRN Constipation 12/12/21 01/16/22 History oral powder packet venetoclax 100 mg tablet 100 mg PO QAM 12/12/21 01/16/22 History (Venclexta) acyclovir 400 mg tablet 400 mg PO BID #14 tabs 12/15/21 01/16/22 Rx levofloxacin 500 mg tablet 500 mg PO QAM #7 tabs 12/15/21 01/16/22 Rx allopurinol 300 mg tablet 300 mg PO QAM #30 tabs 01/04/22 01/16/22 Rx rosuvastatin 40 mg tablet (Crestor) 40 mg PO DAILY 01/05/22 01/16/22 History voriconazole 200 mg tablet (Vfend) 200 mg PO BID #14 tabs 01/19/22 Rx Past Med/Surg History Medical History AML (acute myeloblastic leukemia) Aortic stenosis Arteriosclerotic coronary artery disease Benign enlargement of prostate Carotid artery plaque Dyslipidemia Hypertension Past myocardial infarction Tubulovillous adenoma of colon Surgical History History of cardiac cath cath stent 1 first obtuse marginal branch, type bare metal cath stent 2 first saphenous vein graft, type drug-eluting History of colonoscopy History of coronary artery bypass graft x 3 History of hemorrhoidectomy S/P CABG x 3 Family History Brother Coronary heart disease 5 brothers Father Myocardial infarction Denies family history of Ovarian cancer Prostate cancer Breast cancer Colorectal cancer Lung disease Social History Smoking Status: Former smoker Tobacco Type: Cigarettes Age Started Using Tobacco: 14; Age Quit Using Tobacco: 21; packs per day: 1; Years Smoked: 7; Smoking End Date: 1959; Second Hand Exposure: No; Do You Dip or Chew Tobacco: No; Hx Alcohol Use: No Hx Substance Use: No Preferred Language: Thai Communication Ability: Effective Visual Impairment: Limited Hearing Ability: Use of Hearing Aid Seed Potato Arranger Required: No Beliefs That Will Affect Care: None marital status: Current Living Situation: Spouse Current Living Situation Comment: Lives with in a house has a hospital bed downstairs current occupational status: employed 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 How many Children do You have: 4 Other Information That Helps Us Care for You: No Feels Safe at Home: Yes Safety Concerns: Feels Safe At This Time Childhood Exposure to Second-Hand Smoke: No caffeine: Yes (cup of coffee in morning ) Dental Care, Regularly: No Physical Activity Frequency: Daily Seatbelt Use: always Sunscreen Use: Yes Assistive Devices: Walker Assistive Devices Comment: was ind until about 2=3 weeks ago now uses walker due to weakness Review of Systems Constitutional: + fever, + fatigue, + malaise and + weakness; no body aches Eyes: no blind spots Ear, Nose, Mouth, Throat: no ear pain and no tinnitus Respiratory: no cough Cardiovascular: no chest pain Gastrointestinal: no abdominal pain Genitourinary: no dysuria Musculoskeletal: no back pain Integumentary: no acne Neurologic: + gait abnormality, + unsteadiness and + generalized weakness Psychiatric: no behavioral changes Endocrine: + fatigue Hematologic / Lymphatic: no easy bleeding Allergy / Immunological: no GI upset with certain foods Physical Exam Physical Exam: Constitutional: WD/WN, vitals as above Eyes: PERRL, conjunctivae normal, anicteric sclerae ENMT: external ear and nose normal, oropharynx normal Neck: trachea midline, no thyromegaly Respiratory: normal respiratory effort, lungs clear to auscultation Cardiovascular: Rate/Rhythm: regular rate and regular rhythm Heart Sounds: + murmur (3/6 JENNIFER at [facility]) Extremities: no edema Chest (Breasts): Chest: normal inspection of chest Gastrointestinal (Abdomen): normal bowel sounds, soft, nontender, no hepatosplenomegaly Musculoskeletal: Extremities: extremities normal to inspection; no cyanosis and no clubbing Skin: no rashes, warm and dry Neurologic: moves all extremities and awake; no focal motor deficits Psychiatric: A+Ox3, euthymic affect Lymphatic: no lymphedema Results & Data Results & Data ([facility]) Vital Signs (Past 12 Hours) Vital Signs Temp Pulse Pulse Resp BP BP Pulse Ox 01/21/22 14:15 77 24 98 01/21/22 14:00 79 19 98 01/21/22 13:45 83 23 97 01/21/22 13:30 83 27 H 96 01/21/22 13:15 81 22 98 01/21/22 13:00 81 22 97 01/21/22 12:45 84 24 98 01/21/22 12:30 86 24 99 01/21/22 12:15 83 21 98 01/21/22 12:00 86 20 98 01/21/22 11:45 84 22 98 01/21/22 11:30 86 23 98 01/21/22 11:22 87 24 97 01/21/22 11:22 100/55 L 01/21/22 11:15 86 17 99 01/21/22 11:11 85 22 98 01/21/22 10:45 85 22 01/21/22 10:30 88 24 97 01/21/22 10:30 98/56 L 01/21/22 10:20 98 01/21/22 10:00 88 22 97 01/21/22 10:00 97/55 L 01/21/22 09:45 93 H 21 95 01/21/22 09:30 93 H 25 H 90 01/21/22 09:30 95/60 L 01/21/22 09:16 96 H 16 93 01/21/22 11:11 37.5 C 86 18 98 01/21/22 10:31 86 20 98/56 L 97 10/08/22 09:35 95 01/21/22 09:33 95 H 16 95/60 L 88 L 01/21/22 09:03 37.5 C 95 H 16 93/52 L 96 O2 Del Method O2 Flow Rate 01/21/22 14:15 01/21/22 14:00 01/21/22 13:45 01/21/22 13:30 01/21/22 13:15 01/21/22 13:00 01/21/22 12:45 01/21/22 12:30 01/21/22 12:15 01/21/22 12:00 01/21/22 11:45 01/21/22 11:30 01/21/22 11:22 01/21/22 11:22 01/21/22 11:15 01/21/22 11:11 01/21/22 10:45 01/21/22 10:30 01/21/22 10:30 01/21/22 10:20 01/21/22 10:00 01/21/22 10:00 01/21/22 09:45 01/21/22 09:30 01/21/22 09:30 01/21/22 09:16 01/21/22 11:11 Nasal Cannula 2 01/21/22 10:31 Nasal Cannula 2 01/21/22 09:35 Nasal Cannula 2 01/21/22 09:33 Room Air 01/21/22 09:03 Room Air Code Status & VTE Plan VTE Prophylaxis Plan VTE Prophylaxis will be ordered: Yes PG Care Time/CCT Total # of Minutes Spent Total Time Spent with Patient: Total time spent is greater than 50% in coordination of care (as documented) at patient's floor/unit and/or counseling patient: Coding Level of Care Code 42721 Initial Inpt Care Lvl 3 Diagnoses Pancytopenia D61.818 Symptomatic anemia D64.9 Rhabdomyolysis M62.82 Transaminitis R74.01 Elevated troponin R77.8 AML (acute myeloblastic leukemia) C92.00 Dyslipidemia E78.5 Hypertension I10 Carotid artery plaque I65.29 Benign enlargement of prostate N40.0
[2022-01-21] MEDS: levoFLOXacin 500 MG TAB PO SCH (15:54)
[2022-01-21] MEDS: ACYCLOVIR 400 MG TAB PO SCH ×2 (15:54→21:14)
[2022-01-21 17:02] LABS: Appearance Urine Cloudy (Clear); Bacteria Urine Automated Negative (Negative); Bilirubin Urine Negative (Negative); Blood Urine 3+ (Negative); Color Urine Orange; Epithelial Cell Urine Auto >30 /lpf (0-5); Glucose Urine UA Negative (Negative); Ketones Urine Negative (Negative); Leukocyte Esterase Urine Trace (Negative); Nitrite Urine Negative (Negative); Protein Urine 3+ (Negative); Specific Gravity Urine 1.013 (1.000-1.030); Urobilinogen Urine Negative (Negative)
[2022-01-21 17:37] LABS: Cast Urine Automated 0 /lpf (0-5)
[2022-01-21] MEDS: SODIUM CHLORIDE 0.9% 1000ML 1,000 ML IV SCH (21:14)
[2022-01-21] MEDS: VORICONAZOLE 200 MG TABLET PO SCH (21:14)
[2022-01-21] MEDS: ASCORBIC ACID 500 MG TAB PO SCH (21:14)
[2022-01-22] MEDS: SODIUM CHLORIDE 0.9% 1000ML 1,000 ML IV SCH ×3 (05:24→22:43)
[2022-01-22] MEDS: CYANOCOBALAMIN (B-12) 500 MCG TABLET PO SCH (07:36)
[2022-01-22] MEDS: allopurinoL 300 MG TAB PO SCH (07:36)
[2022-01-22] MEDS: METOPROLOL SUCC 50MG EXT REL TAB PO SCH (07:36)
[2022-01-22] MEDS: VORICONAZOLE 200 MG TABLET PO SCH ×2 (07:36→21:10)
[2022-01-22] MEDS: ASCORBIC ACID 500 MG TAB PO SCH ×2 (07:37→21:10)
[2022-01-22] MEDS: ACYCLOVIR 400 MG TAB PO SCH ×2 (07:37→21:10)
[2022-01-22 08:43] LABS: Hematocrit (blood only) 23.5 % (40.1-51.0); Hemoglobin 8.3 g/dl (14.0-18.0); Mean Corpuscular Hgb Conc 35.3 g/dL (32.0-36.0); Mean Corpuscular Volume 84.8 fL (80.0-100.0); Mean Platelet Volume 10.2 fL (9.4-12.4); Platelet Count 7 K/uL (130-400); RDW Coefficient of Variation 12.9 % (11.5-14.5); Red Blood Count 2.77 M/uL (4.63-6.08); White Blood Count 0.14 K/ul (4.8-10.8)
[2022-01-22 09:10] LABS: Albumin Globulin Ratio 0.7 (0.9-2); Albumin Level 2.3 gm/dl (3.4-5.0); BUN Creatinine Ratio 13.1 (10-20); Bilirubin,Total 0.6 mg/dl (0.2-1.0); Calcium 7.7 mg/dl (8.5-10.1); Creatinine Clr Calc Pharmacy 70.1 ml/min; Est GFR (African American) 97.2 ml/min; Est GFR (Non-African American) 83.9 ml/min; Globulin 3.5 gm/dl (2.5-4.0); Potassium 3.4 mmol/L (3.5-5.1); Total Protein 5.8 gm/dl (6.0-8.3)
[2022-01-22] MEDS: levoFLOXacin 500 MG TAB PO SCH (09:12)
[2022-01-22] MEDS: ACETAMINOPHEN 500 MG TAB PO PRN ×2 (09:13→16:16)
[2022-01-22] MEDS ORDERED: STAT IV STA (09:27)
[2022-01-22] MEDS ORDERED: POTASSIUM CHLORIDE CRTAB 20 MEQ TABCR PO STA (09:30)
[2022-01-22 09:46] LABS: A calco-baum cmplx NotReported Not Detected (NotDetected); Bact fragilis Not Reported Not Detected (NotDetected); C auris Not Reported Not Detected (NotDetected); Calbicans Not Reported Not Detected (NotDetected); Candida glabrata Not Reported Not Detected (NotDetected); Candida krusei Not Reported Not Detected (NotDetected); Cneoformans/gatti Not Reported Not Detected (NotDetected); Cparapsilosis Not Reported Not Detected (NotDetected); Ctropicalis Not Reported Not Detected (NotDetected); E cloacae compx Not Reported Not Detected (NotDetected); Efaecalis Not Reported Not Detected (NotDetected); Efaecium Not Reported Not Detected (NotDetected); Enterobacterales Not Reported Not Detected (NotDetected); Escherichia coli Not Reported Not Detected (NotDetected); H influenzae Not Reported Not Detected (NotDetected); K aerogenes Not Reported Not Detected (NotDetected); Koxytoca Not Reported Not Detected (NotDetected); Kpneumoniae grp Not Reported Not Detected (NotDetected); Lmonocyt Not Reported Not Detected (NotDetected); N meningitidis Not Reported Not Detected (NotDetected); P aeruginosa Not Reported Not Detected (NotDetected); Proteus spp Not Reported Not Detected (NotDetected); Salmonella spp Not Reported Not Detected (NotDetected); Smarcescens Not Reported Not Detected (NotDetected); Staph lugdunensis Not Reported Not Detected (NotDetected); Staph spp. Not Reported DETECTED (NotDetected); Staphaureus Not Reported Not Detected (NotDetected); Staphepi Not Reported DETECTED (NotDetected); Staphylococcus spp. DETECTED (NotDetected); Stenmaltophilia Not Reported Not Detected (NotDetected); Strep agal(GrpB) Not Reported Not Detected (NotDetected); Strep pneum Not Reported Not Detected (NotDetected); Strep pyog (GrpA) Not Reported Not Detected (NotDetected); Strep spp Not Reported Not Detected (NotDetected); mecAC Resistant Gene Not Detected (NotDetected)
[2022-01-22] MEDS ORDERED: CALCIUM GLUCONATE 10% 1,000 MG in DEXTROSE 5% 50 ML IV ONE (10:00)
[2022-01-22 10:21] LABS: Staphylococcus epidermidis DETECTED (NotDetected)
[2022-01-22] MEDS ORDERED: VANCOMYCIN CONSULT ACTIVE PRN (12:45)
[2022-01-22] MEDS ORDERED: VANCOMYCIN HCL 1,000 MG in SODIUM CHLORIDE 0.9% 250 ML IV SCH (12:45)
[2022-01-22] MEDS ORDERED: VANCOMYCIN HCL 1,750 MG in SODIUM CHLORIDE 0.9% 500 ML IV ONE (13:00)
--- NOTE | 2022-01-22 13:27 | Oncology Consultation ---
Date of Consultation January 22, 2022 Assessment & Plan (1) Pancytopenia: (2) Rhabdomyolysis: (3) AML (acute myeloblastic leukemia): (4) Severe thrombocytopenia: (5) Anemia: Plan Pleasant gentleman who was recently diagnosed with AML in November,. He is s/p 2 cycles of decitabine and was scheduled to receive cycle 3 of treatment under the care of Dr. Sanchez at [facility] tomorrow. He presented with worsening fatigue, lower extremity weakness and rhabdomyolysis. 1. AML: Would recommend holding venetoclax given significant pancytopenia, decline in performance status and generalized weakness. Continue with outpatient decitabine under the care of Dr. Sanchez 2. Pancytopenia: Likely due to treatment as well as AML. Please transfuse with PRBC for hemoglobin less than 7.5, platelet transfusion for platelets less than 15,000. Would not recommend G-CSF in the setting of AML 3. Rhabdomyolysis: Of unclear etiology. Denies any new medications/trauma. There have been case reports of AML causing rhabdomyolysis as paraneoplastic phenomenon. May consider muscle biopsy in the future/when clinically stable if no other etiology is identified. IV fluid hydration History of Present Illness Reason for Consultation: Pancytopenia in a patient with AML Attending Physician: Denice Patel MD History of Present Illness Very pleasant 76-year-old gentleman With history of AML which was diagnosed in early November, for which he follows with Dr. Sanchez of [facility]. Per discussion with patient, he received induction chemotherapy with decitabine at [facility] in early November,. Received cycle 2 of decitabine about a month ago and was subsequently started on venetoclax. He was scheduled to receive cycle 3 of treatment tomorrow. He however presented to the ER [facility] on 01/21/2022 with intermittent fevers, lower extremity weakness and progressively worsening fatigue. Labs revealed hemoglobin of 7.0, hematocrit of 19 and platelet count of 11,000. Also noted was elevated creatinine kinase of 3491. He complains of worsening fatigue, bilateral lower extremity weakness starting from his hips. He denies any new medications, recent fall or any other issues Allergies Allergy/AdvReac Type Severity Reaction Status Date / Time diphenhydramine AdvReac Severe ITCHING Verified 01/19/22 12:02 [From Benadryl] losartan AdvReac Intermediate FATIGUE, Verified 01/19/22 12:02 CHEST PAIN oxycodone [From Percocet] AdvReac Intermediate Confusion Verified 01/19/22 12:02 lisinopril AdvReac Mild FATIGUE Verified 01/19/22 12:02 Home Medications Medication Instructions Recorded Confirmed Type ascorbic acid (vitamin C) 500 mg 500 mg PO BID 02/11/19 01/16/22 History tablet nitroglycerin 0.4 mg sublingual 0.4 mg sublingual Q5M PRN Chest 02/11/19 01/16/22 History tablet Pain #1 tab amlodipine 2.5 mg tablet 2.5 mg PO QAM 12/12/21 01/16/22 History cyanocobalamin (vitamin B-12) 1,000 mcg PO QAM 12/12/21 01/16/22 History 1,000 mcg capsule metoprolol succinate 100 mg 100 mg PO QAM 12/12/21 01/16/22 History tablet,extended release 24 hr ondansetron 4 mg disintegrating 4 mg PO Q6H PRN Nausea 12/12/21 01/16/22 History tablet polyethylene glycol 3350 17 gram 17 g PO DAILY PRN Constipation 12/12/21 01/16/22 History oral powder packet venetoclax 100 mg tablet 100 mg PO QAM 12/12/21 01/16/22 History (Venclexta) acyclovir 400 mg tablet 400 mg PO BID #14 tabs 12/15/21 01/16/22 Rx levofloxacin 500 mg tablet 500 mg PO QAM #7 tabs 12/15/21 01/16/22 Rx allopurinol 300 mg tablet 300 mg PO QAM #30 tabs 01/04/22 01/16/22 Rx rosuvastatin 40 mg tablet (Crestor) 40 mg PO DAILY 01/05/22 01/16/22 History voriconazole 200 mg tablet (Vfend) 200 mg PO BID #14 tabs 01/19/22 Rx Patient History Medical History AML (acute myeloblastic leukemia) Aortic stenosis Arteriosclerotic coronary artery disease Benign enlargement of prostate Carotid artery plaque Dyslipidemia Hypertension Past myocardial infarction Tubulovillous adenoma of colon Surgical History History of cardiac cath cath stent 1 first obtuse marginal branch, type bare metal cath stent 2 first saphenous vein graft, type drug-eluting History of colonoscopy History of coronary artery bypass graft x 3 History of hemorrhoidectomy S/P CABG x 3 Family History Brother Coronary heart disease 5 brothers Father Myocardial infarction Denies family history of Ovarian cancer Prostate cancer Breast cancer Colorectal cancer Lung disease Social History Smoking Status: Former smoker Tobacco Type: Cigarettes Age Started Using Tobacco: 14; Age Quit Using Tobacco: 21; packs per day: 1; Years Smoked: 7; Smoking End Date: 1959; Second Hand Exposure: No; Do You Dip or Chew Tobacco: No; Hx Alcohol Use: No Hx Substance Use: No Preferred Language: Peruvian Communication Ability: Effective Visual Impairment: Limited Hearing Ability: Use of Hearing Aid Dragline Oiler Required: No Beliefs That Will Affect Care: None marital status: Current Living Situation: Spouse Current Living Situation Comment: Lives with in a house has a hospital bed downstairs current occupational status: employed 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 How many Children do You have: 4 Other Information That Helps Us Care for You: No Feels Safe at Home: Yes Safety Concerns: Feels Safe At This Time Childhood Exposure to Second-Hand Smoke: No caffeine: Yes (cup of coffee in morning ) Dental Care, Regularly: No Physical Activity Frequency: Daily Seatbelt Use: always Sunscreen Use: Yes Assistive Devices: None Assistive Devices Comment: was ind until about 2=3 weeks ago now uses walker due to weakness Review of Systems Review of Systems: All systems reviewed & are unremarkable except as noted in Subjective Physical Exam Constitutional: WD/WN, vitals as above Eyes: PERRL, conjunctivae normal, anicteric sclerae Respiratory: normal respiratory effort, lungs clear to auscultation Cardiovascular: RRR, no murmur, no edema Gastrointestinal (Abdomen): normal bowel sounds, soft, nontender, no hepatosplenomegaly Results & Data ([facility]) Vital Signs (Past 12 Hours) Vital Signs Temp Pulse Pulse Resp BP Pulse Ox O2 Del Method 01/22/22 07:33 36.9 C 99 H 18 121/71 96 Room Air 01/22/22 02:55 37.3 C 84 19 106/68 96 Room Air 01/21/22 22:05 87 01/21/22 22:41 37.3 C 92 H 18 118/65 97 Nasal Cannula O2 Flow Rate 01/22/22 07:33 01/22/22 02:55 01/21/22 22:05 01/21/22 22:41 2 (1) Anemia Anemia type: unspecified type Qualified Code(s): D64.9 - Anemia, unspecified
--- NOTE | 2022-01-22 13:27 | Hospitalist Progress Note ---
Date of Service January 22, 2022 Assessment & Plan (1) Pancytopenia: Plan: Patient admitted with antineoplastic induced pancytopenia and generalized weakness. Weakness secondary to symptomatic anemia but also secondary to bacteremia and infection With hemoglobin 7.0 on admission, platelets 11, and WBC count severely low at 0.1 with neutropenia. With fevers at home to 100.2 for a couple of weeks-see bacteremia as below -Transfused 1 unit PRBCs on 01/21, hemoglobin up to 8.3 -Platelets 7 today-transfused 1 unit of platelets-transfusion stopped just before completion due to 20 point drop in blood pressure-no evidence of allergic reaction on examination-doubt true reaction -Neutropenic precautions -Follow CBC in the morning and transfusional support as needed -Appreciate oncology consultation -No role for Neupogen in the setting of AML -Continue prophylactic acyclovir, voriconazole, but hold levofloxacin while on cefepime as below (2) Symptomatic anemia: Plan: Patient having generalized fatigue, and lower extremity weakness. CT of cervical, thoracic, and lumbar spine with degenerative disease, old mild T6 compression deformity, no significant stenosis. Transfused PRBCs as above given concern over low perfusion and hypotension with anemia, will hold amlodipine and would not restart on discharge will continue beta victoria metoprolol succinate 100 mg PO AM with hold parameters -Follow CBC (3) Bacteremia: Plan: Shortly after admission, blood cultures both sets growing gram-positive cocci in clusters that is Staph epidermidis Given that he has a sacral wound and is immunocompromised on chemotherapy with low-grade fevers at home-treat this as a true bacteremia -Check echocardiogram for endocarditis, if negative, consider JENNIFER although with thrombocytopenia unsure if this could be performed? -Started vancomycin for gram-positive cocci in the blood. Start cefepime for broader coverage given possible pneumonia seen with nodules in the lungs on CT chest -Repeat blood cultures daily until negative -May need infectious disease consultation -Tylenol as needed for chills and fevers -Hold home levofloxacin while on cefepime (4) Rhabdomyolysis: Plan: Patient's CK is elevated at over 3000. Will hold statin medication and would not recommend restarting at this time CK remains in the 3000's today Unclear how this happened-statin induced versus chemotherapy induced in combination with lying and sitting around a lot lately due to generalized weakness -Treat with normal saline at 125 mL/h -Follow CK, CMP, magnesium, phosphorus in the morning (5) Pulmonary nodules: Plan: Noted to have multiple tiny nodules on thoracic spine CT Checked chest CT which also shows nodules and mediastinal and hilar lymphadenopathy-noted to be present on previous CT chest in 11/2021 Covering for pneumonia with cefepime and vancomycin Consult pulmonology (6) Hypokalemia: Plan: Secondary to poor p.o. intake and dehydration Replace with oral potassium chloride Follow BMP and magnesium in the morning (7) AML (acute myeloblastic leukemia): Plan: hold venetoclax due to ongoing infection and low blood counts Appreciate oncology consultation-patient is considering transitioning care to [facility] oncology Following counts as above Follow CBC Last decitabine was 1 week ago (8) Sacral wound: Plan: Appears to be stage II Offload pressure and consult wound care nurse, keep covered Does not appear to be infected (9) Transaminitis: Plan: Likely secondary to rhabdomyolysis Follow LFTs in the morning Treating with IV fluids (10) Elevated troponin: Plan: Likely demand ischemia secondary to acute infection and symptomatic anemia Trended troponin and second troponin went down to 114 Checking echocardiogram as above for endocarditis, will monitor for wall motion abnormalities ECG without ischemia No chest pain (11) Dyslipidemia: Plan: hold statin due to rhabdo (12) Hypertension: Plan: Blood pressures have been around 100 systolic reports at home and that is approximately where he has here Discontinue home amlodipine permanently Continue home Toprol-XL 100 mg once daily with hold parameters (13) Benign enlargement of prostate: Plan: No acute issues and not on medication for this (14) Arteriosclerotic coronary artery disease: Plan: With a history of CABG previously Discontinued aspirin when started chemotherapy, discontinuing statin as above Continue Toprol-XL No evidence of acute coronary syndrome but with myocardial demand ischemia as above (15) Aortic stenosis: Plan: Moderate aortic stenosis on last echocardiogram Checking echocardiogram now Plan DVT prophylaxis-none due to thrombocytopenia and high risk of bleeding and bruising with either mechanical or chemoprophylaxis Disposition-continue stay on medical telemetry unit Full code Care discussed extensively with multiple family members both at the bedside and on the phone Admission and Anticipated Discharge Date Admission Date: January 21, 2022 Subjective Patient feels very weak all over. No pain anywhere. Denies chest pains or shortness of breath. He is sweating at times and reports he has had low-grade fevers for several weeks now at home. No abdominal pains or nausea. He did move his bowels today. No bleeding in his stool, no bleeding in his urine, and no bleeding from anywhere. He denies cough. I discussed his care with his both on the phone and then on a second visit at the bedside. She is inquiring about transitioning care to the cancer center at [facility] after discharge. The patient's does report that he has been more sedentary and laying around a lot. She is trying to offload pressure from his sacral wound. He has not had any falls or injury. Telemetry with sinus rhythm, IVCD, PACs, rates in the 70s to 90s. During his platelet transfusion today, close to the end of the transfusion, his blood pressure did drop 20 points to 100 systolic. The transfusion was discontinued. He did not have any other signs of allergic reaction-no rash. Blood pressures actually improved on their own. Transfusion reaction protocol order was placed but later discovered in the day that the protocol was never initiated on the nursing end. However, I discussed this with the precision lens technician who thought that at this point as the patient was doing well and it was a platelet transfusion as opposed to blood, that there was no need to do any further evaluation with which I agree. Review of Systems Review of Systems: All systems reviewed & are unremarkable except as noted in HPI & below Physical Exam Constitutional: WD/WN, vitals as above + ill appearing Eyes: PERRL, conjunctivae normal, anicteric sclerae ENMT: external ear and nose normal, oropharynx normal Neck: trachea midline, no thyromegaly Respiratory: normal respiratory effort, lungs clear to auscultation Cardiovascular: RRR, no murmur, no edema Chest (Breasts): Chest: normal inspection of chest Gastrointestinal (Abdomen): normal bowel sounds, soft, nontender, no hepatosplenomegaly Musculoskeletal: Extremities: extremities normal to inspection; no cyanosis and no clubbing Skin: no rashes, warm and dry + wound (Right sacral wound stage II, no erythema or drainage) Neurologic: moves all extremities and awake; no focal motor deficits Psychiatric: A+Ox3, euthymic affect Genitourinary: no testicular masses, no penis abnormality Lymphatic: no lymphedema Results & Data Results & Data ([facility]) Vital Signs (Past 12 Hours) Vital Signs Temp Pulse Pulse Resp BP BP Pulse Ox 01/22/22 11:45 37.2 C 84 16 114/66 94 01/22/22 11:30 37.2 C 82 16 127/71 95 01/22/22 11:07 37 C 85 18 121/68 96 01/22/22 07:33 36.9 C 99 H 18 121/71 96 01/22/22 02:55 37.3 C 84 19 106/68 96 O2 Del Method 01/22/22 11:45 01/22/22 11:30 01/22/22 11:07 01/22/22 07:33 Room Air 01/22/22 02:55 Room Air Laboratory Results 01/22/22 01/22/22 01/22/22 Range/Units 14:43 07:49 07:49 WBC 0.14 L* (4.8-10.8) K/ul RBC 2.77 L (4.63-6.08) M/uL Hgb 8.3 L (14.0-18.0) g/dl Hct 23.5 L (40.1-51.0) % MCV 84.8 (80.0-100.0) fL MCH 30.0 (25.0-34.0) pg MCHC 35.3 (32.0-36.0) g/dL RDW Std Deviation 40.0 (36.4-46.3) fL RDW Coeff of Marty 12.9 (11.5-14.5) % Plt Count 7 L* (130-400) K/uL MPV 10.2 (9.4-12.4) fL Immature Gran % (Auto) Cancelled Neut % (Auto) Cancelled Lymph % (Auto) Cancelled Waldo % (Auto) Cancelled Eos % (Auto) Cancelled Baso % (Auto) Cancelled Neut # (Auto) Cancelled Lymph # (Auto) Cancelled Waldo # (Auto) Cancelled Eos # (Auto) Cancelled Baso # (Auto) Cancelled Immature Gran # (Auto) Cancelled Neutrophils % (Manual) Cancelled Band Neutrophils % Cancelled Lymphocytes % (Manual) Cancelled Prolymphocyte % Cancelled Reactive Lymphs % (Man) Cancelled Monocytes % (Manual) Cancelled Eosinophils % (Manual) Cancelled Basophils % (Manual) Cancelled Metamyelocytes % (Man) Cancelled Myelocytes % (Man) Cancelled Promyelocytes % (Man) Cancelled Blast Cells % (Manual) Cancelled Plasma Cell % (Manual) Cancelled Other Cells % Cancelled Nucleated RBC % Cancelled Neutrophils # (Manual) Cancelled Band Neutrophils # Cancelled Total Absolute Neuts Cancelled Lymphocytes # (Manual) Cancelled Prolymphocyte # Cancelled Reactive Lymphs # Cancelled Total Abs Lymphocytes Cancelled Monocytes # (Manual) Cancelled Eosinophils # (Manual) Cancelled Basophils # (Manual) Cancelled Metamyelocytes # (Man) Cancelled Myelocytes # (Manual) Cancelled Promyelocytes # (Man) Cancelled Blast Cells # (Man) Cancelled Plasma Cell # (Manual) Cancelled Other Cells # Cancelled Nucleated RBCs # (Man) Cancelled Hypersegmented Neuts Cancelled Hyposegmented Neuts Cancelled Hypogranular Neuts Cancelled Large Granular Lymphs Cancelled # Lrg Granular Lymphs Cancelled Hairy Cells Cancelled Smudge Cells Cancelled Toxic Granulation Cancelled Toxic Vacuolation Cancelled Dohle Bodies Cancelled Alyssa Rods Cancelled Hypogranular Platelets Cancelled Clumped Platelets Cancelled Giant Platelets Cancelled Platelet Satelliting Cancelled RBC Morphology Cancelled Polychromasia Cancelled Hypochromasia Cancelled Poikilocytosis Cancelled Basophilic Stippling Cancelled Anisocytosis Cancelled Microcytosis Cancelled Macrocytosis Cancelled Spherocytes Cancelled Pappenheimer Bodies Cancelled Sickle Cells Cancelled Target Cells Cancelled Tear Drop Cells Cancelled Ovalocytes Cancelled Stomatocytes Cancelled [place] Bodies Cancelled Echinocytes Cancelled Acanthocytes (Spur) Cancelled Rouleaux Cancelled RBC Agglutinates Cancelled Schistocytes Cancelled Sezary Cell Cancelled Sodium 134 L (136-145) mmol/L Potassium 3.4 L (3.5-5.1) mmol/L Chloride 103 (98-107) mmol/L Carbon Dioxide 25 (21-32) mmol/L Anion Gap 6 (3-11) BUN 11 (6-23) mg/dl Creatinine 0.84 D (0.6-1.4) mg/dl Est Cr Clr Drug Dosing 70.1 ml/min Est GFR ( Amer) 97.2 ml/min Est GFR (Non-Af Amer) 83.9 ml/min BUN/Creatinine Ratio 13.1 (10-20) Glucose 93 (70-99(Fasting)) mg/dl Calcium 7.7 L (8.5-10.1) mg/dl Total Bilirubin 0.6 (0.2-1.0) mg/dl AST 172 H (13-39) U/L ALT 115 H (7-52) U/L Alkaline Phosphatase 161 H (34-104) U/L Lactate Dehydrogenase 502 H (86-244) U/L Total Creatine Kinase 3855 H (30-223) U/L Troponin I High Sens 114.0 H* (0-20) pg/ml Total Protein 5.8 L (6.0-8.3) gm/dl Albumin 2.3 L (3.4-5.0) gm/dl Globulin 3.5 (2.5-4.0) gm/dl Albumin/Globulin Ratio 0.7 L (0.9-2) Staphylococcus sp PCR (NotDetected) mecA/C-Methicil Resis Gene (NotDetected) Staph epidermidis (PCR) (NotDetected) Bld Cult ID Panel PCR (NotDetected) Blood Parasites ID Cancelled Blood Type Antibody Screen Crossmatch 01/21/22 01/21/22 Range/Units 14:26 10:32 WBC (4.8-10.8) K/ul RBC (4.63-6.08) M/uL Hgb (14.0-18.0) g/dl Hct (40.1-51.0) % MCV (80.0-100.0) fL MCH (25.0-34.0) pg MCHC (32.0-36.0) g/dL RDW Std Deviation (36.4-46.3) fL RDW Coeff of Marty (11.5-14.5) % Plt Count (130-400) K/uL MPV (9.4-12.4) fL Immature Gran % (Auto) Neut % (Auto) Lymph % (Auto) Waldo % (Auto) Eos % (Auto) Baso % (Auto) Neut # (Auto) Lymph # (Auto) Waldo # (Auto) Eos # (Auto) Baso # (Auto) Immature Gran # (Auto) Neutrophils % (Manual) Band Neutrophils % Lymphocytes % (Manual) Prolymphocyte % Reactive Lymphs % (Man) Monocytes % (Manual) Eosinophils % (Manual) Basophils % (Manual) Metamyelocytes % (Man) Myelocytes % (Man) Promyelocytes % (Man) Blast Cells % (Manual) Plasma Cell % (Manual) Other Cells % Nucleated RBC % Neutrophils # (Manual) Band Neutrophils # Total Absolute Neuts Lymphocytes # (Manual) Prolymphocyte # Reactive Lymphs # Total Abs Lymphocytes Monocytes # (Manual) Eosinophils # (Manual) Basophils # (Manual) Metamyelocytes # (Man) Myelocytes # (Manual) Promyelocytes # (Man) Blast Cells # (Man) Plasma Cell # (Manual) Other Cells # Nucleated RBCs # (Man) Hypersegmented Neuts Hyposegmented Neuts Hypogranular Neuts Large Granular Lymphs # Lrg Granular Lymphs Hairy Cells Smudge Cells Toxic Granulation Toxic Vacuolation Dohle Bodies Alyssa Rods Hypogranular Platelets Clumped Platelets Giant Platelets Platelet Satelliting RBC Morphology Polychromasia Hypochromasia Poikilocytosis Basophilic Stippling Anisocytosis Microcytosis Macrocytosis Spherocytes Pappenheimer Bodies Sickle Cells Target Cells Tear Drop Cells Ovalocytes Stomatocytes [place] Bodies Echinocytes Acanthocytes (Spur) Rouleaux RBC Agglutinates Schistocytes Sezary Cell Sodium (136-145) mmol/L Potassium (3.5-5.1) mmol/L Chloride (98-107) mmol/L Carbon Dioxide (21-32) mmol/L Anion Gap (3-11) BUN (6-23) mg/dl Creatinine (0.6-1.4) mg/dl Est Cr Clr Drug Dosing ml/min Est GFR ( Amer) ml/min Est GFR (Non-Af Amer) ml/min BUN/Creatinine Ratio (10-20) Glucose (70-99(Fasting)) mg/dl Calcium (8.5-10.1) mg/dl Total Bilirubin (0.2-1.0) mg/dl AST (13-39) U/L ALT (7-52) U/L Alkaline Phosphatase (34-104) U/L Lactate Dehydrogenase (86-244) U/L Total Creatine Kinase (30-223) U/L Troponin I High Sens (0-20) pg/ml Total Protein (6.0-8.3) gm/dl Albumin (3.4-5.0) gm/dl Globulin (2.5-4.0) gm/dl Albumin/Globulin Ratio (0.9-2) Staphylococcus sp PCR DETECTED A (NotDetected) mecA/C-Methicil Resis Gene Not Detected (NotDetected) Staph epidermidis (PCR) DETECTED A (NotDetected) Bld Cult ID Panel PCR See PCR Comment (NotDetected) Blood Parasites ID Blood Type A Positive Antibody Screen NEGATIVE Crossmatch See Detail Diagnostic Findings CT chest images personally reviewed by me and agree with the following reports: Chest CT 01/22/22 13:21 CT chest diagnostic wo con CT DOSE: 633.20 mGy.cm CLINICAL HISTORY: 76 years-old Male with pulm nodules, fevers,assess for pneumonia. Acute fever with possible pneumonia. Follow-up study in a patient with history of pulmonary nodules. TECHNIQUE: Multiaxial CT images of the chest were performed without contrast. A dose lowering technique was utilized adhering to the principles of ALARA. COMPARISON: Chest CT 11/22/2021 FINDINGS: No thyroid nodule. Calcified mediastinal and hilar lymph nodes are redemonstrated. Subcarinal lymph nodes measure up to 1.5 cm. Right paratracheal lymph node on image 77 measures 1.2 cm. Findings are unchanged. No new or progressive lymphadenopathy. Cardiomegaly without pericardial effusion. Prior median sternotomy and CABG with extensive [place] coronary artery calcifications. No thoracic aortic aneurysm. Dilation of the pulmonary arteries suggestive of pulmonary arterial hypertension. Respiratory motion artifact limits evaluation of the lungs. No pneumothorax. Trace left pleural effusion. Stable 6 mm solid nodule of the right upper lobe on image 121. Multisegmental bilateral distribution of centrilobular micronodules. Stable 7 mm groundglass nodule of the superior segment left lower lobe on image 90. Stable 6 mm groundglass nodule of the right upper lobe, image 82. Central airways appear patent. No acute process of the imaged upper abdomen. Unremarkable soft tissues. Degenerative changes of the shoulders and spine. IMPRESSION: 1. The study is degraded by respiratory motion artifact. 2. Diffuse bilateral centrilobular micronodules are similar in appearance to the 11/22/2021 exam compatible with an infectious or inflammatory pneumonitis. The patient also has stable enlarged mediastinal and hilar lymph nodes. Correlate clinically to exclude sarcoidosis. 3. Stable 6 mm solid nodule of the right upper lobe with unchanged subcentimeter right upper lobe and superior segment left lower lobe groundglass nodule measuring up to 7 mm. 4. Cardiomegaly with prior median sternotomy and CABG. ACT 112: Negative or not required by law. Dictated: 01/22/2022 5:15 PM Transcribed: 01/22/2022 5:50 PM Pilar [id number] [email or web address] Electronically signed by: Garcia Vaca M.D. 01/22/2022 6:25 PM PG Care Time/CCT Total # of Minutes Spent Total Time Spent with Patient: Total time spent is greater than 50% in coordination of care (as documented) at patient's floor/unit and/or counseling patient: Coding Level of Care Code 01505 Subseq Hosp Care Lvl 3 Diagnoses Pancytopenia D61.818 Symptomatic anemia D64.9 Bacteremia R78.81 Rhabdomyolysis M62.82 Pulmonary nodules R91.8 Hypokalemia E87.6 AML (acute myeloblastic leukemia) C92.00 Sacral wound S31.000A Transaminitis R74.01 Elevated troponin R77.8 Dyslipidemia E78.5 Hypertension I10 Benign enlargement of prostate N40.0 Arteriosclerotic coronary artery disease I25.10 Aortic stenosis I35.0
--- NOTE | 2022-01-22 13:56 | Pharmacy Report ---
Pharmacy PK ABX Note - Date of Service January 22, 2022 - Assessment and Plan Assessment 76 year old M receiving IV vancomycin and cefepime for treatment of bacteremia and pneumonia. Blood cultures (+) GPC in clusters in 1/ (Biofire + Staph epidermidis, no methicillin resistance genes). Patient pancytopenic and immunocompromised. Renal function back to baseline today. Day # 1 of antimicrobial therapy. Plan Vancomycin * Loading dose: 1750 mg IV x 1 * Maintenance dose: 750 mg IV every 12 hours * Regimen is predicted to achieve target AUC/HETAL of 400-600 mg/L.hr * Will obtain a level around steady state or sooner if clinically indicated. Pharmacy will continue to follow and will adjust dose/frequency as necessary. Thank you. Pharmacy has transitioned to AUC monitoring for vancomycin. AUC/HETAL is the preferred PK/PD target and is associated with decreased risk of nephrotoxicity compared to traditional trough targets.
[2022-01-22] MEDS: CEFEPIME 2,000 MG in SYRINGE 0 ML IV SCH ×2 (14:33→22:40)
--- NOTE | 2022-01-22 18:28 | CT Scan Report ---
CT chest diagnostic wo con CT DOSE: 633.20 mGy.cm CLINICAL HISTORY: 76 years-old Male with pulm nodules, fevers,assess for pneumonia. Acute fever with possible pneumonia. Follow-up study in a patient with history of pulmonary nodules. TECHNIQUE: Multiaxial CT images of the chest were performed without contrast. A dose lowering techni que was utilized adhering to the principles of ALARA. COMPARISON: Chest CT 11/22/2021 FINDINGS: No thyroid nodule. Calcified mediastinal and hilar lymph nodes are redemonstrated. Subcarin al lymph nodes measure up to 1.5 cm. Right paratracheal lymph node on image 77 measures 1.2 cm. Findi ngs are unchanged. No new or progressive lymphadenopathy. Cardiomegaly without pericardial effusion. Prior median sternotomy and CABG with extensive alutiiq coronary artery calcifications. No thoracic ao rtic aneurysm. Dilation of the pulmonary arteries suggestive of pulmonary arterial hypertension. Respiratory motion artifact limits evaluation of the lungs. No pneumothorax. Trace left pleural effus ion. Stable 6 mm solid nodule of the right upper lobe on image 121. Multisegmental bilateral distribu tion of centrilobular micronodules. Stable 7 mm groundglass nodule of the superior segment left lower lobe on image 90. Stable 6 mm groundglass nodule of the right upper lobe, image 82. Central airways appear patent. No acute process of the imaged upper abdomen. Unremarkable soft tissues. Degenerative changes of the shoulders and spine. IMPRESSION: 1. The study is degraded by respiratory motion artifact. 2. Diffuse bilateral centrilobular micronodules are similar in appearance to the 11/22/2021 exam compat ible with an infectious or inflammatory pneumonitis. The patient also has stable enlarged mediastinal and hilar lymph nodes. Correlate clinically to exclude sarcoidosis. 3. Stable 6 mm solid nodule of the right upper lobe with unchanged subcentimeter right upper lobe and superior segment left lower lobe groundglass nodule measuring up to 7 mm. 4. Cardiomegaly with prior median sternotomy and CABG. ACT 112: Negative or not required by law. Dictated: 01/22/2022 5:15 PM Transcribed: 01/22/2022 5:50 PM Pilar [id number] [email or web address] Electronically signed by: Garcia Vaca M.D. 01/22/2022 6:25 PM
[2022-01-22] MEDS: VANCOMYCIN HCL 750 MG in SODIUM CHLORIDE 0.9% 250 ML IV SCH (21:10)
[2022-01-23] MEDS: ACETAMINOPHEN 500 MG TAB PO PRN ×2 (00:47→16:12)
[2022-01-23] MEDS ORDERED: ACETAMINOPHEN 325 MG TAB PO ONE (05:05)
[2022-01-23] MEDS: CEFEPIME 2,000 MG in SYRINGE 0 ML IV SCH ×3 (05:29→22:12)
--- NOTE | 2022-01-23 05:35 | Electrocardiogram Report ---
Test Reason : Blood Pressure : / mmHG Vent. Rate : 095 BPM Atrial Rate : 095 BPM P-R Int : 140 ms QRS Dur : 148 ms QT Int : 434 ms P-R-T Axes : 000 -51 017 degrees QTc Int : 545 ms Normal sinus rhythm Right bundle branch block Left anterior fascicular block Bifascicular block Abnormal ECG When compared with ECG of 12-DEC-2021 10:46, QT has lengthened Confirmed by Laith Lacy ([id number]) on 01/23/2022 5:35:23 AM Referred By: REFERRED SELF Confirmed By:Laith Lacy
[2022-01-23] MEDS: SODIUM CHLORIDE 0.9% 1000ML 1,000 ML IV SCH ×2 (06:29→14:30)
--- NOTE | 2022-01-23 07:43 | Pulmonary Consultation ---
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 He was found to incidentally have pulmonary nodules and mediastinal adenopathy which been stable over about 8 weeks of follow-up imaging. He has no respiratory complaints currently. Recommendations: 1. Pulmonary nodules: These nodules been stable over at least 8 weeks which argues against them being related to malignancy or contributing to the patient's current clinical condition. He is asymptomatic from a pulmonary standpoint. Given his immunocompromise state, he is at risk for a variety of pulmonary issues including opportunistic infections including nontuberculous mycobacterial infections as well as not infectious/inflammatory etiologies. As the patient is asymptomatic currently and imaging has demonstrated stability of these nodules, would recommend continued clinical surveillance with a follow-up noncontrast CT scan of the chest in 8 to 12 weeks. Should he develop respiratory symptoms or clinically decline, more urgent imaging may be considered. 2. Mediastinal adenopathy: See comments above. Continued surveillance is needed. 3. Would strongly recommend infectious disease consult given the patient's immunocompromise state, and bacteremia. Surface echocardiogram would also be recommended. Deferred to the patient's primary service. Patient's pulmonary issues are stable at this point time. Pulmonary will sign off. Feel free to contact us if we can be of additional assistance. History of Present Illness Attending Physician: Denice Patel MD History of Present Illness Asked by hospitalist to evaluate this patient with the pulmonary nodules and mediastinal adenopathy and history of AML undergoing chemotherapy. History is obtained from discussion with the patient and reviewed electronic medical record. Patient is a 76-year-old male with a [id number] history of tobacco exposure quit smoking over 60 years ago. Patient presented to the hospital 01/21/2022 with complaints of fatigue and intermittent fevers. He was found to be pancytopenic and had positive blood cultures. He has a history of aortic stenosis and a sacral decubitus ulcer. He is been initiated on antibiotics. A CT scan was obtained which showed multiple small pulmonary nodules as well as mediastinal adenopathy which was not significantly changed compared to a prior CT scan from November of this year. The patient is devoid of any respiratory complaints. He specifically denies any cough or sputum production. No chest pain or shortness of breath. He is not noted any wheezing. 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 He does not have any other occupational or environmental exposures. No pets at home. No pertinent travel history. Blood cultures during this hospitalization are positive for gram-positive cocci in 4 out of 4. Surveillance cultures from yesterday are pending but no growth to date. Allergies Allergy/AdvReac Type Severity Reaction Status Date / Time diphenhydramine AdvReac Severe ITCHING Verified 01/19/22 12:02 [From Benadryl] losartan AdvReac Intermediate FATIGUE, Verified 01/19/22 12:02 CHEST PAIN oxycodone [From Percocet] AdvReac Intermediate Confusion Verified 01/19/22 12:02 lisinopril AdvReac Mild FATIGUE Verified 01/19/22 12:02 Home Medications Medication Instructions Recorded Confirmed Type ascorbic acid (vitamin C) 500 mg 500 mg PO BID 02/11/19 01/16/22 History tablet nitroglycerin 0.4 mg sublingual 0.4 mg sublingual Q5M PRN Chest 02/11/19 01/16/22 History tablet Pain #1 tab amlodipine 2.5 mg tablet 2.5 mg PO QAM 12/12/21 01/16/22 History cyanocobalamin (vitamin B-12) 1,000 mcg PO QAM 12/12/21 01/16/22 History 1,000 mcg capsule metoprolol succinate 100 mg 100 mg PO QAM 12/12/21 01/16/22 History tablet,extended release 24 hr ondansetron 4 mg disintegrating 4 mg PO Q6H PRN Nausea 12/12/21 01/16/22 History tablet polyethylene glycol 3350 17 gram 17 g PO DAILY PRN Constipation 12/12/21 01/16/22 History oral powder packet venetoclax 100 mg tablet 100 mg PO QAM 12/12/21 01/16/22 History (Venclexta) acyclovir 400 mg tablet 400 mg PO BID #14 tabs 12/15/21 01/16/22 Rx levofloxacin 500 mg tablet 500 mg PO QAM #7 tabs 12/15/21 01/16/22 Rx allopurinol 300 mg tablet 300 mg PO QAM #30 tabs 01/04/22 01/16/22 Rx rosuvastatin 40 mg tablet (Crestor) 40 mg PO DAILY 01/05/22 01/16/22 History voriconazole 200 mg tablet (Vfend) 200 mg PO BID #14 tabs 01/19/22 Rx Patient History Medical History AML (acute myeloblastic leukemia) Aortic stenosis Arteriosclerotic coronary artery disease Benign enlargement of prostate Carotid artery plaque Dyslipidemia Hypertension Past myocardial infarction Tubulovillous adenoma of colon Surgical History History of cardiac cath cath stent 1 first obtuse marginal branch, type bare metal cath stent 2 first saphenous vein graft, type drug-eluting History of colonoscopy History of coronary artery bypass graft x 3 History of hemorrhoidectomy S/P CABG x 3 Family History Brother Coronary heart disease 5 brothers Father Myocardial infarction Denies family history of Ovarian cancer Prostate cancer Breast cancer Colorectal cancer Lung disease Social History Smoking Status: Former smoker Tobacco Type: Cigarettes Age Started Using Tobacco: 14; Age Quit Using Tobacco: 21; packs per day: 1; Years Smoked: 7; Smoking End Date: 1959; Second Hand Exposure: No; Do You Dip or Chew Tobacco: No; Hx Alcohol Use: No Hx Substance Use: No Preferred Language: [place] Communication Ability: Effective Visual Impairment: Limited Hearing Ability: Use of Hearing Aid Foreman/Pile Driving And Erection Required: No Beliefs That Will Affect Care: None marital status: Current Living Situation: Spouse Current Living Situation Comment: Lives with in a house has a hospital bed downstairs current occupational status: employed 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 No additions or deletions Physical Exam Constitutional: WD/WN, vitals as above Neck: trachea midline, no thyromegaly Respiratory: normal respiratory effort, lungs clear to auscultation Cardiovascular: Rate/Rhythm: regular rate Heart Sounds: normal S1, normal S2 and + murmur Extremities: no edema Gastrointestinal (Abdomen): normal bowel sounds, soft, nontender, no hepatosplenomegaly Musculoskeletal: Extremities: extremities normal to inspection Skin: no rashes, warm and dry Neurologic: Nonfocal exam Lymphatic: no cervical lymphadenopathy Results & Data Results & Data ([facility]) Vital Signs (Past 12 Hours) Vital Signs Temp Pulse Pulse Resp BP Pulse Ox O2 Del Method 01/23/22 07:36 94 H 01/22/22 22:13 77 01/23/22 07:03 37.8 C H 95 H 18 123/75 97 Room Air 01/23/22 04:30 37.9 C H 92 H 18 126/67 94 Room Air 01/22/22 23:36 38.1 C H 82 18 123/70 96 Room Air 01/22/22 20:52 Room Air 01/22/22 19:59 36.9 C 75 18 111/66 97 Critical Care Results & Data Vital Signs (Past 12 Hours) Vital Signs Temp Pulse Pulse Resp BP Pulse Ox O2 Del Method 01/23/22 07:36 94 H 01/22/22 22:13 77 01/23/22 07:03 37.8 C H 95 H 18 123/75 97 Room Air 01/23/22 04:30 37.9 C H 92 H 18 126/67 94 Room Air 01/22/22 23:36 38.1 C H 82 18 123/70 96 Room Air 01/22/22 20:52 Room Air 01/22/22 19:59 36.9 C 75 18 111/66 97 Lab & Micro Results (Past 24 Hours) RBC 2.77 M/uL (4.63-6.08) L 01/22/22 WBC 0.14 K/ul (4.8-10.8) L* 01/22/22 Hgb 8.3 g/dl (14.0-18.0) L 01/22/22 Hct 23.5 % (40.1-51.0) L 01/22/22 MCV 84.8 fL (80.0-100.0) 01/22/22 MCH 30.0 pg (25.0-34.0) 01/22/22 MCHC 35.3 g/dL (32.0-36.0) 01/22/22 RDW Standard Deviation 40.0 fL (36.4-46.3) 01/22/22 RDW Coefficient of Variation 12.9 % (11.5-14.5) 01/22/22 Plt Count 7 K/uL (130-400) L* 01/22/22 MPV 10.2 fL (9.4-12.4) 01/22/22 Na 134 mmol/L (136-145) L 01/22/22 K 3.4 mmol/L (3.5-5.1) L 01/22/22 Cl 103 mmol/L (98-107) 01/22/22 CO2 25 mmol/L (21-32) 01/22/22 Anion Gap 6 (3-11) 01/22/22 BUN 11 mg/dl (6-23) 01/22/22 Creatinine 0.84 mg/dl (0.6-1.4) 01/22/22 Estimated GFR ( Amer) 97.2 ml/min 01/22/22 Estimated GFR (Non-Af Amer) 83.9 ml/min 01/22/22 BUN/Creatinine Ratio 13.1 (10-20) 01/22/22 Glu 93 mg/dl (70-99(Fasting)) 01/22/22 Ca 7.7 mg/dl (8.5-10.1) L 01/22/22 Total Bilirubin 0.6 mg/dl (0.2-1.0) 01/22/22 AST 172 U/L (13-39) H 01/22/22 ALT 115 U/L (7-52) H 01/22/22 Alkaline Phosphatase 161 U/L (34-104) H 01/22/22 TP 5.8 gm/dl (6.0-8.3) L 01/22/22 Albumin 2.3 gm/dl (3.4-5.0) L 01/22/22 Globulin 3.5 gm/dl (2.5-4.0) 01/22/22 Albumin/Globulin Ratio 0.7 (0.9-2) L 01/22/22 Lactate Dehydrogenase 502 U/L (86-244) H 01/22/22 Calcium Level 7.7 mg/dl (8.5-10.1) L 01/22/22 07:49 Microbiology 01/21/22 20:01 Aerobic Blood Culture - Preliminary Blood Gram positive cocci clusters Anaerobic Blood Culture - Preliminary Gram positive cocci clusters 01/21/22 14:26 Aerobic Blood Culture - Preliminary Blood Gram positive cocci clusters Anaerobic Blood Culture - Preliminary Gram positive cocci clusters Diagnostic Findings (Past 24 Hours) Chest CT 01/22/22 13:21 CT chest diagnostic wo con CT DOSE: 633.20 mGy.cm CLINICAL HISTORY: 76 years-old Male with pulm nodules, fevers,assess for pneumonia. Acute fever with possible pneumonia. Follow-up study in a patient with history of pulmonary nodules. TECHNIQUE: Multiaxial CT images of the chest were performed without contrast. A dose lowering technique was utilized adhering to the principles of ALARA. COMPARISON: Chest CT 11/22/2021 FINDINGS: No thyroid nodule. Calcified mediastinal and hilar lymph nodes are redemonstrated. Subcarinal lymph nodes measure up to 1.5 cm. Right paratracheal lymph node on image 77 measures 1.2 cm. Findings are unchanged. No new or progressive lymphadenopathy. Cardiomegaly without pericardial effusion. Prior median sternotomy and CABG with extensive [place] coronary artery calcifications. No thoracic aortic aneurysm. Dilation of the pulmonary arteries suggestive of pulmonary arterial hypertension. Respiratory motion artifact limits evaluation of the lungs. No pneumothorax. Trace left pleural effusion. Stable 6 mm solid nodule of the right upper lobe on image 121. Multisegmental bilateral distribution of centrilobular micronodules. Stable 7 mm groundglass nodule of the superior segment left lower lobe on image 90. Stable 6 mm groundglass nodule of the right upper lobe, image 82. Central airways appear patent. No acute process of the imaged upper abdomen. Unremarkable soft tissues. Degenerative changes of the shoulders and spine. IMPRESSION: 1. The study is degraded by respiratory motion artifact. 2. Diffuse bilateral centrilobular micronodules are similar in appearance to the 11/22/2021 exam compatible with an infectious or inflammatory pneumonitis. The patient also has stable enlarged mediastinal and hilar lymph nodes. Correlate clinically to exclude sarcoidosis. 3. Stable 6 mm solid nodule of the right upper lobe with unchanged subcentimeter right upper lobe and superior segment left lower lobe groundglass nodule measuring up to 7 mm. 4. Cardiomegaly with prior median sternotomy and CABG. ACT 112: Negative or not required by law. Dictated: 01/22/2022 5:15 PM Transcribed: 01/22/2022 5:50 PM [facility] [id number] Electronically signed by: Gracia Vaca M.D. 01/22/2022 6:25 PM I & O Totals 24 Hours 01/22/22 01/23/22 01/24/22 06:59 06:59 06:59 Intake Total 1375 / 1375 4730.833 / 4730.833 Output Total 1550 / 1550 3400 / 3400 Balance -175 / -175 1330.833 / 1330.833 Cumulative 01/21/22 08:46 thru 01/23/22 06:29 Intake Total 6105.833 Output Total 4950 Balance 1155.833 RT Ventilator Mngmt (Last Documented) Ventilator Ordered Settings Respiratory Rate 18 01/23/22 07:03 Ventilator - PT Measurements Respiratory Rate 18 PG Care Time/CCT Total # of Minutes Spent Total Time Spent with Patient: Total time spent is greater than 50% in coordination of care (as documented) at patient's floor/unit and/or counseling patient: Coding Level of Care Code 45624 Initial Inpt Care Lvl 3 Diagnoses Pulmonary nodules R91.8 Mediastinal adenopathy R59.0
[2022-01-23] MEDS: CYANOCOBALAMIN (B-12) 500 MCG TABLET PO SCH (09:26)
[2022-01-23] MEDS: allopurinoL 300 MG TAB PO SCH (09:26)
[2022-01-23] MEDS: METOPROLOL SUCC 50MG EXT REL TAB PO SCH (09:26)
[2022-01-23] MEDS: ASCORBIC ACID 500 MG TAB PO SCH ×2 (09:27→21:07)
[2022-01-23] MEDS: VANCOMYCIN HCL 750 MG in SODIUM CHLORIDE 0.9% 250 ML IV SCH ×2 (09:27→21:00)
[2022-01-23] MEDS: VORICONAZOLE 200 MG TABLET PO SCH ×2 (09:27→21:07)
[2022-01-23] MEDS: ACYCLOVIR 400 MG TAB PO SCH ×2 (09:27→21:07)
[2022-01-23 11:00] LABS: Hematocrit (blood only) 22.9 % (40.1-51.0); Mean Corpuscular Hemoglobin 29.9 pg (25.0-34.0); Mean Corpuscular Hgb Conc 34.9 g/dL (32.0-36.0); Mean Corpuscular Volume 85.4 fL (80.0-100.0); Mean Platelet Volume 10.4 fL (9.4-12.4); Platelet Count 11 K/uL (130-400); RDW Coefficient of Variation 13.1 % (11.5-14.5); RDW Standard Deviation 40.9 fL (36.4-46.3); Red Blood Count 2.68 M/uL (4.63-6.08); White Blood Count 0.14 K/ul (4.8-10.8)
[2022-01-23 11:01] LABS: Albumin Globulin Ratio 0.7 (0.9-2); Albumin Level 2.3 gm/dl (3.4-5.0); BUN Creatinine Ratio 15.6 (10-20); Bilirubin,Total 0.4 mg/dl (0.2-1.0); Calcium 7.7 mg/dl (8.5-10.1); Creatinine Clr Calc Pharmacy 76.5 ml/min; Est GFR (African American) 100.7 ml/min; Est GFR (Non-African American) 86.9 ml/min; Globulin 3.4 gm/dl (2.5-4.0); Phosphorus 2.1 mg/dl (2.5-4.9); Potassium 3.2 mmol/L (3.5-5.1); Total Protein 5.7 gm/dl (6.0-8.3)
[2022-01-23] MEDS ORDERED: POTASSIUM PHOS 3 MMOL/1 ML INFUSION IV STA (11:47)
[2022-01-23] MEDS ORDERED: POTASSIUM CHLORIDE CRTAB 20 MEQ TABCR PO STA (11:47)
[2022-01-23] MEDS ORDERED: POTASSIUM PHOSPHATE 15 MMOL in SODIUM CHLORIDE 0.9% 250 ML IV ONE (12:15)
--- NOTE | 2022-01-23 12:31 | Progress Note ---
Date of Service January 23, 2022 Assessment & Plan (1) Pancytopenia: Plan: Due to AML as well as recent treatment with decitabine/venetoclax (2) Rhabdomyolysis: Plan: Improving. Possibly due to immobility/statin. Less likely paraneoplastic syndrome from AML (3) AML (acute myeloblastic leukemia): Plan: S/p 2 cycles of decitabine. Venetoclax started about 2 weeks ago. (4) Severe thrombocytopenia: Plan: Due to AML/decitabine (5) Anemia: Anemia type: unspecified type Qualified Code(s): D64.9 - Anemia, unspecified (6) Febrile neutropenia: Plan Pleasant gentleman who was recently diagnosed with AML in November,. He is s/p 2 cycles of decitabine and was scheduled to receive cycle 3 of treatment under the care of Dr. Sanchez at [facility] tomorrow. He presented with worsening fatigue, lower extremity weakness and rhabdomyolysis. Blood cultures are now positive for staphylococcal species x2 for which she is currently on broad- spectrum antibiotics. 1. Neutropenic sepsis: Blood culture positive for Staphylococcus species x2 with possible source being sacral wound. Agree with broad-spectrum antibiotics in the setting of severe neutropenia from AML. Continue voriconazole and acyclovir 2. AML: Continue to hold venetoclax given significant pancytopenia, decline in performance status and generalized weakness. 3. Pancytopenia: Likely due to treatment as well as AML. Please transfuse with PRBC for hemoglobin less than 7.5, platelet transfusion for platelets less than 15,000. Would not recommend G-CSF in the setting of AML 4. Rhabdomyolysis: Improving. Of unclear etiology. Denies any new medications/trauma. Possibly statin induced. There have been case reports of AML causing rhabdomyolysis as paraneoplastic phenomenon. May consider muscle biopsy in the future/when clinically stable if no other etiology is identified. IV fluid hydration Admission and Anticipated Discharge Date Admission Date: January 21, 2022 Subjective States that lower extremity weakness seems to have improved. Fatigue also improving. Had fever with temperature of of 38.1 yesterday. Blood cultures growing Staphylococcus species x2. Currently on broad-spectrum antibiotics with vancomycin and cefepime Review of Systems Review of Systems: All systems reviewed & are unremarkable except as noted in Subjective Results & Data ([place]) Vital Signs (Past 12 Hours) Vital Signs Temp Pulse Pulse Resp BP Pulse Ox O2 Del Method 01/23/22 12:04 37.2 C 95 H 20 129/71 94 Room Air 01/23/22 09:45 Room Air 01/23/22 07:36 94 H 01/23/22 07:03 37.8 C H 95 H 18 123/75 97 Room Air 01/23/22 04:30 37.9 C H 92 H 18 126/67 94 Room Air
--- NOTE | 2022-01-23 14:05 | XCELERA ---
[id number]
--- NOTE | 2022-01-23 17:19 | Hospitalist Progress Note ---
Date of Service January 23, 2022 Assessment & Plan (1) Pancytopenia: Plan: Patient admitted with antineoplastic induced pancytopenia and generalized weakness. Weakness secondary to symptomatic anemia but also secondary to bacteremia and infection With hemoglobin 7.0 on admission, platelets 11, and WBC count severely low at 0.1 with neutropenia. With fevers at home to 100.2 for a couple of weeks, now with high spiking fevers here in the hospital-see bacteremia as below -Transfused 1 unit PRBCs on 01/21, hemoglobin up to 8.3 but now back down to 8.0 -Platelets 7 after admission and was transfused 1 unit of platelets-transfusion stopped just before completion due to 20 point drop in blood pressure-no evidence of allergic reaction on examination-doubt true reaction -Platelets 11 today and oncology recommends transfusion for platelets less than 15. No evidence of bleeding. Transfuse 1 pack of platelets on 01/23 -Continue neutropenic precautions -Follow CBC in the morning and transfusional support as needed-there is 1 more unit of PRBCs on hold for him in the blood bank if needed -Appreciate oncology consultation -No role for Neupogen in the setting of AML -Continue prophylactic acyclovir, voriconazole, but hold levofloxacin while on cefepime as below (2) Bacteremia: Plan: With septicemia, POA With leukopenia, fevers, and Staphylococcus epidermidis growing in the blood cultures both sets from admission Shortly after admission, blood cultures both sets growing gram-positive cocci in clusters that is Staph epidermidis Given that he has a sacral wound and is immunocompromised on chemotherapy with low-grade fevers at home-treat this as a true bacteremia -Checked echocardiogram for endocarditis-negative-->consider JENNIFER although with thrombocytopenia unsure if this could be performed? -Continue broad-spectrum antibiotics with vancomycin which covers for Staphylococcus bacteremia and cefepime given possible pneumonia seen with nodules in the lungs on CT chest -Repeat blood cultures daily until negative-all other cultures no growth to date -Placed infectious disease consultation -Tylenol as needed for chills and fevers -Hold home levofloxacin while on cefepime -Obviously, this will delay his chemotherapy-discussed with patient and family (3) Sepsis: Plan: As above (4) Symptomatic anemia: Plan: Patient having generalized fatigue, and lower extremity weakness. CT of cervical, thoracic, and lumbar spine with degenerative disease, old mild T6 compression deformity, no significant stenosis. Transfused PRBCs as above given concern over low perfusion and hypotension with anemia, will hold amlodipine and would not restart on discharge will continue beta victoria metoprolol succinate 100 mg PO AM with hold parameters -Follow CBC (5) Rhabdomyolysis: Plan: Patient's CK is elevated at over 3000 on admission and now down to 1500 Oncology says could be paraneoplastic rhabdomyolysis or possibly side effect of chemotherapy or AML itself, but unclear cause Could be from statin? with lying and sitting around a lot lately due to generalized weakness -discontinued statin medication and would not recommend restarting at this time -Continue to treat with normal saline at 125 mL/h -Follow CK, CMP, magnesium, phosphorus in the morning (6) Pulmonary nodules: Plan: Noted to have multiple tiny nodules on thoracic spine CT Checked chest CT which also shows nodules and mediastinal and hilar lymphadenopathy-noted to be present on previous CT chest in 11/2021 Covering for pneumonia with cefepime and vancomycin Consult pulmonology appreciated-recommends that since there is stability of the nodules and lymphadenopathy since CT scan from November, likely not related to chemotherapy, but is at risk for opportunistic infections. -Pulmonary recommends repeat CT chest in 8 weeks to reassess (7) Hypokalemia: Plan: Secondary to poor p.o. intake and dehydration. Also with low phosphorus Replace with potassium phosphate Follow BMP, Phos, and magnesium in the morning (8) AML (acute myeloblastic leukemia): Plan: hold venetoclax due to ongoing infection and low blood counts Appreciate oncology consultation-patient is considering transitioning care to [facility] oncology Following counts as above Follow CBC Last decitabine was 1 week ago (9) Sacral wound: Plan: Appears to be stage II Offload pressure and consult wound care nurse, keep covered Does not appear to be infected but could be the source of the Staph bacteremia (10) Transaminitis: Plan: Likely secondary to rhabdomyolysis-improving Follow LFTs in the morning Treating with IV fluids (11) Elevated troponin: Plan: Likely demand ischemia secondary to acute infection and symptomatic anemia Trended troponin and second troponin went down to 114 Echocardiogram as above for endocarditis--> preserved EF, neg wall motion abnormalities, mod-severe ECG without ischemia No chest pain (12) Dyslipidemia: Plan: hold statin due to rhabdo (13) Hypertension: Plan: Blood pressures have been around 100 systolic reports at home and that is approximately where he has here Discontinue home amlodipine permanently Continue home Toprol-XL 100 mg once daily with hold parameters (14) Benign enlargement of prostate: Plan: No acute issues and not on medication for this (15) Arteriosclerotic coronary artery disease: Plan: With a history of CABG previously Discontinued aspirin when started chemotherapy, discontinuing statin as above Continue Toprol-XL No evidence of acute coronary syndrome but with myocardial demand ischemia as above (16) Aortic stenosis: Plan: Moderate aortic stenosis on last echocardiogram, now with moderate-severe aortic stenosis Monitor Plan DVT prophylaxis-none due to thrombocytopenia and high risk of bleeding and bruising with either mechanical or chemoprophylaxis Disposition-continue stay on medical telemetry unit Full code Care discussed extensively with multiple family members at the bedside Admission and Anticipated Discharge Date Admission Date: January 21, 2022 Subjective Patient still feeling quite weak and still spiking fevers. Has some nausea. No bleeding from anywhere. No bowel movement today. He is making urine. Does have a dry cough, no shortness of breath. Telemetry with normal sinus rhythm, IVCD, PACs, rates in the 70s to 90s Review of Systems Review of Systems: All systems reviewed & are unremarkable except as noted in HPI & below Physical Exam Constitutional: WD/WN, vitals as above + ill appearing Eyes: + anicteric sclerae Neck: trachea midline, no thyromegaly Respiratory: normal respiratory effort, lungs clear to auscultation Cardiovascular: RRR, no murmur, no edema Chest (Breasts): Chest: normal inspection of chest Gastrointestinal (Abdomen): normal bowel sounds, soft, nontender, no hepatosplenomegaly Musculoskeletal: Extremities: extremities normal to inspection; no cyanosis a nd no clubbing Skin: no rashes, warm and dry + wound (Right sacral wound stage II, no erythema or drainage) Neurologic: moves all extremities and awake; no focal motor deficits Psychiatric: A+Ox3, euthymic affect Lymphatic: no lymphedema Results & Data Results & Data ([facility]) Vital Signs (Past 12 Hours) Vital Signs Temp Pulse Pulse Resp BP BP Pulse Ox 01/23/22 16:54 38.3 C H 102 H 18 125/71 95 01/23/22 16:11 38.3 C H 101 H 18 122/69 95 01/23/22 15:23 100 H 01/23/22 12:04 37.2 C 95 H 20 129/71 94 01/23/22 09:45 01/23/22 07:36 94 H 01/23/22 07:03 37.8 C H 95 H 18 123/75 97 O2 Del Method 01/23/22 16:54 01/23/22 16:11 01/23/22 15:23 01/23/22 12:04 Room Air 01/23/22 09:45 Room Air 01/23/22 07:36 01/23/22 07:03 Room Air Laboratory Results 01/23/22 01/23/22 01/21/22 Range/Units 10:00 10:00 10:32 WBC 0.14 L* (4.8-10.8) K/ul RBC 2.68 L (4.63-6.08) M/uL Hgb 8.0 L (14.0-18.0) g/dl Hct 22.9 L (40.1-51.0) % MCV 85.4 (80.0-100.0) fL MCH 29.9 (25.0-34.0) pg MCHC 34.9 (32.0-36.0) g/dL RDW Std Deviation 40.9 (36.4-46.3) fL RDW Coeff of Marty 13.1 (11.5-14.5) % Plt Count 11 L* D (130-400) K/uL MPV 10.4 (9.4-12.4) fL Immature Gran % (Auto) Cancelled Neut % (Auto) Cancelled Lymph % (Auto) Cancelled Rapides % (Auto) Cancelled Eos % (Auto) Cancelled Baso % (Auto) Cancelled Neut # (Auto) Cancelled Lymph # (Auto) Cancelled [place] # (Auto) Cancelled Eos # (Auto) Cancelled Baso # (Auto) Cancelled Immature Gran # (Auto) Cancelled Neutrophils % (Manual) Cancelled Band Neutrophils % Cancelled Lymphocytes % (Manual) Cancelled Prolymphocyte % Cancelled Reactive Lymphs % (Man) Cancelled Monocytes % (Manual) Cancelled Eosinophils % (Manual) Cancelled Basophils % (Manual) Cancelled Metamyelocytes % (Man) Cancelled Myelocytes % (Man) Cancelled Promyelocytes % (Man) Cancelled Blast Cells % (Manual) Cancelled Plasma Cell % (Manual) Cancelled Other Cells % Cancelled Nucleated RBC % Cancelled Neutrophils # (Manual) Cancelled Band Neutrophils # Cancelled Total Absolute Neuts Cancelled Lymphocytes # (Manual) Cancelled Prolymphocyte # Cancelled Reactive Lymphs # Cancelled Total Abs Lymphocytes Cancelled Monocytes # (Manual) Cancelled Eosinophils # (Manual) Cancelled Basophils # (Manual) Cancelled Metamyelocytes # (Man) Cancelled Myelocytes # (Manual) Cancelled Promyelocytes # (Man) Cancelled Blast Cells # (Man) Cancelled Plasma Cell # (Manual) Cancelled Other Cells # Cancelled Nucleated RBCs # (Man) Cancelled Hypersegmented Neuts Cancelled Hyposegmented Neuts Cancelled Hypogranular Neuts Cancelled Large Granular Lymphs Cancelled # Lrg Granular Lymphs Cancelled Hairy Cells Cancelled Smudge Cells Cancelled Toxic Granulation Cancelled Toxic Vacuolation Cancelled Dohle Bodies Cancelled Alyssa Rods Cancelled Hypogranular Platelets Cancelled Clumped Platelets Cancelled Giant Platelets Cancelled Platelet Satelliting Cancelled RBC Morphology Cancelled Polychromasia Cancelled Hypochromasia Cancelled Poikilocytosis Cancelled Basophilic Stippling Cancelled Anisocytosis Cancelled Microcytosis Cancelled Macrocytosis Cancelled Spherocytes Cancelled Pappenheimer Bodies Cancelled Sickle Cells Cancelled Target Cells Cancelled Tear Drop Cells Cancelled Ovalocytes Cancelled Stomatocytes Cancelled [place] Bodies Cancelled Echinocytes Cancelled Acanthocytes (Spur) Cancelled Rouleaux Cancelled RBC Agglutinates Cancelled Schistocytes Cancelled Sezary Cell Cancelled Sodium 136 (136-145) mmol/L Potassium 3.2 L (3.5-5.1) mmol/L Chloride 106 (98-107) mmol/L Carbon Dioxide 25 (21-32) mmol/L Anion Gap 5 (3-11) BUN 12 (6-23) mg/dl Creatinine 0.77 (0.6-1.4) mg/dl Est Cr Clr Drug Dosing 76.5 ml/min Est GFR ( Amer) 100.7 ml/min Est GFR (Non-Af Amer) 86.9 ml/min BUN/Creatinine Ratio 15.6 (10-20) Glucose 107 H (70-99(Fasting)) mg/dl Calcium 7.7 L (8.5-10.1) mg/dl Phosphorus 2.1 L (2.5-4.9) mg/dl Magnesium 2.0 (1.7-2.4) mg/dl Total Bilirubin 0.4 (0.2-1.0) mg/dl AST 127 H (13-39) U/L ALT 113 H (7-52) U/L Alkaline Phosphatase 135 H (34-104) U/L Total Creatine Kinase 1928 H (30-223) U/L Total Protein 5.7 L (6.0-8.3) gm/dl Albumin 2.3 L (3.4-5.0) gm/dl Globulin 3.4 (2.5-4.0) gm/dl Albumin/Globulin Ratio 0.7 L (0.9-2) Blood Parasites ID Cancelled Blood Type A Positive Antibody Screen NEGATIVE Crossmatch See Detail PG Care Time/CCT Total # of Minutes Spent Total Time Spent with Patient: Total time spent is greater than 50% in coordination of care (as documented) at patient's floor/unit and/or counseling patient: Coding Level of Care Code 86231 Subseq Hosp Care Lvl 3 Diagnoses Pancytopenia D61.818 Bacteremia R78.81 Sepsis A41.9 Symptomatic anemia D64.9 Rhabdomyolysis M62.82 Pulmonary nodules R91.8 Hypokalemia E87.6 AML (acute myeloblastic leukemia) C92.00 Sacral wound S31.000A Transaminitis R74.01 Elevated troponin R77.8 Dyslipidemia E78.5 Hypertension I10 Benign enlargement of prostate N40.0 Arteriosclerotic coronary artery disease I25.10 Aortic stenosis I35.0
[2022-01-23] MEDS ORDERED: Nursing to Pharmacy Communication SCH (23:30)
[2022-01-24] MEDS: SODIUM CHLORIDE 0.9% 1000ML 1,000 ML IV SCH ×3 (03:58→22:58)
[2022-01-24] MEDS: CEFEPIME 2,000 MG in SYRINGE 0 ML IV SCH ×3 (05:44→23:05)
[2022-01-24 08:28] LABS: Hematocrit (blood only) 22.4 % (40.1-51.0); Mean Corpuscular Hemoglobin 30.1 pg (25.0-34.0); Mean Corpuscular Hgb Conc 35.7 g/dL (32.0-36.0); Mean Corpuscular Volume 84.2 fL (80.0-100.0); Platelet Count 17 K/uL (130-400); RDW Coefficient of Variation 13.1 % (11.5-14.5); Red Blood Count 2.66 M/uL (4.63-6.08); White Blood Count 0.17 K/ul (4.8-10.8)
[2022-01-24] MEDS ORDERED: VANCOMYCIN LEVEL ONE (08:30)
[2022-01-24 08:58] LABS: Albumin Globulin Ratio 0.6 (0.9-2); Albumin Level 2.3 gm/dl (3.4-5.0); BUN Creatinine Ratio 20.6 (10-20); Bilirubin,Total 0.5 mg/dl (0.2-1.0); Calcium 7.9 mg/dl (8.5-10.1); Creatinine Clr Calc Pharmacy 86.6 ml/min; Est GFR (Non-African American) 91.5 ml/min; Globulin 3.7 gm/dl (2.5-4.0); Magnesium 1.9 mg/dl (1.7-2.4); Potassium 3.5 mmol/L (3.5-5.1)
[2022-01-24] MEDS: allopurinoL 300 MG TAB PO SCH (08:59)
[2022-01-24] MEDS: METOPROLOL SUCC 50MG EXT REL TAB PO SCH (08:59)
[2022-01-24] MEDS: VANCOMYCIN HCL 750 MG in SODIUM CHLORIDE 0.9% 250 ML IV SCH (08:59)
[2022-01-24] MEDS: VORICONAZOLE 200 MG TABLET PO SCH ×2 (08:59→23:08)
[2022-01-24] MEDS: ASCORBIC ACID 500 MG TAB PO SCH ×2 (08:59→23:07)
[2022-01-24] MEDS: ACYCLOVIR 400 MG TAB PO SCH ×2 (08:59→23:06)
[2022-01-24] MEDS: CYANOCOBALAMIN (B-12) 500 MCG TABLET PO SCH (08:59)
--- NOTE | 2022-01-24 10:07 | Infectious Disease Consult ---
Date of Consultation January 24, 2022 Assessment & Plan (1) Febrile neutropenia: (2) Pancytopenia: (3) Severe thrombocytopenia: (4) Bacteremia: (5) Transaminitis: (6) Rhabdomyolysis: (7) Pulmonary nodules: (8) AML (acute myeloblastic leukemia): Plan 76 yo M with h/o recently diagnosed AML in 11/2021 s/p cycle 2 with decitabine and venetoclax, on ppx acyclovir, voriconazole and levofloxacin, CAD s/p CABG, recent hospitalization for pancytopenia, admitted to [facility] on 01/21/2022 with intermittent fevers, lower extremity weakness and progressively worsening fatigue. ID has been consulted for neutropenic fevers. PROBLEM LIST 1. Profound Neutropenia with fevers 2. Pancytopenia 3. MSSE positive blood cultures, No port placement. No hardware. 4. Pulmonary nodules 5. Transaminitis/Rhabdomyolysis 6. AML on chemotherapy On admission, initial VSS but he has become febrile since. Labs notable for profound neutropenia,hemoglobin of 7.0, hematocrit of 19 and platelet count 11,000. Also noted was elevated creatinine kinase of 3491. Troponins elevated. 01/21 Blood cultures 4/4 bottles CoNS (2 separate peripheral sites, oxacillin sensitive). / Blood cultures in lab. CT Chest Diffuse bilateral centrilobular micronodules are similar in appearance to the 11/22/2021 , radiology read: infectious or inflammatory pneumonitis. Stable 6mm nodule in RUL. Diffuse LAD. Cervical, Thoracic, lumbar spine CT negative for acute findings. CT head no acute findings. Patient was started on Vancomycin, Cefepime. TTE official read pending. Exam notable for only peripheral IVs, no port or central lines. No rash, thrush or mucositis. Positive buttock lesions. Discussion: Patient with profound neutropenia and sudden onset fevers. He is growing MSSE in his blood. Typically I would suspect this to be a contaminant especially without hardware or central line placement. It is difficult to assume this the case in setting of neutropenia. His buttock lesion may have caused him to be transiently bacteremic. He also grew CoNS in 4/4 bottles. Imaging is also concerning for pulmonary lesions that have not changed for >2 months. He is not hypoxic and has no pulmonary complaints. He is on Voriconazole and Levaquin ppx. I will review imaging with Radiology further. Finally his buttock area may be the source of infection, I will order HSV PCR to ensure this is not herpetic (although would be atypical appearing and he is on acyclovir). Recommend: -F/U repeat blood cultures -Monitor fever curve -Follow LFTs/CPK -Continue with cefepime and Vancomycin -If repeat cultures are negative we may dc Vancomycin -Check sputum cultures, MRSA nares, check HSV swab of buttock lesion -C/W Neutropenic precautions I spoke with Dr. Griffiths regarding these recommendations. ID will follow with you closely. Amairani Hunt MD [facility], [facility] Consultation Information Consultation was provided via telemedicine using two-way real-time interactive telecommunication between the patient and the telemedicine provider. For the duration of the visit, the provider was performing the assessment from a different facility than the patient. This includesuse of bluetooth stethoscope forauscultationperformed by the telepresenter that the telemedicine provider can hear if described in the physical exam. Senior Ecologist contact information: Please call [facility] Call Center [phone]. (Phone Number For Physician Use Only) After establishing a telemedicine visit, patient was: Patient was verified with two unique identifiers, Patient/authorized rep acknowledged consent and understanding and Gave permission to continue telehealth session Time Spent w Inpatient: 55 minutes History of Present Illness Reason for Consultation: Neutropenic Fever Requesting Physician: Dr. Santiago Griffiths Attending Physician: Santiago Griffiths History of Present Illness 76 yo M with h/o recently diagnosed AML in 11/2021 s/p cycle 2 with decitabine and venetoclax, on ppx acyclovir, voriconazole and levofloxacin, CAD s/p CABG, recent hospitalization for pancytopenia, admitted to [facility] on 01/21/2022 with intermittent fevers, lower extremity weakness and progressively worsening fatigue. ID has been consulted for neutropenic fevers. AML was diagnosed in early November, and sees Dr. Sanchez [place] [facility] He started induction therapy in November 2021. Following this he was he was hospitalized for pancytopenia. He was scheduled for cycle 3 next week however he began having fevers, LE weakness and generalized fatigue. Temp at home was 100.6. On admission, initial VSS but he has become febrile since. Labs notable for profound neutropenia,hemoglobin of 7.0, hematocrit of 19 and platelet count 11,000. Also noted was elevated creatinine kinase of 3491. Troponins elevated. 01/21 Blood cultures 4/4 bottles CoNS (2 separate peripheral sites, oxacillin sensitive). 01/[address] cultures [address] lab[address] Chest Diffuse bilateral centrilobular micronodules are similar in appearance to the 11/22/2021 , radiology read: infectious or inflammatory pneumonitis. Stable 6mm nodule in RUL. Diffuse LAD. Cervical, Thoracic, lumbar spine CT negative for acute findings. CT head no acute findings. Patient was started on Vancomycin, Cefepime. TTE official read pending. On my interview with patient today he states he is feeling better. Denies cough, sob, chest pain, muscle pain. No diarrhea or abdominal pain. No N/V. Mainly complains of buttock pain. No port placement. No hardware. Allergies Allergy/AdvReac Type Severity Reaction Status Date / Time diphenhydramine AdvReac Severe ITCHING Verified 01/19/22 12:02 [From Benadryl] losartan AdvReac Intermediate FATIGUE, Verified 01/19/22 12:02 CHEST PAIN oxycodone [From Percocet] AdvReac Intermediate Confusion Verified 01/19/22 12:02 lisinopril AdvReac Mild FATIGUE Verified 01/19/22 12:02 Home Medications Medication Instructions Recorded Confirmed Type ascorbic acid (vitamin C) 500 mg 500 mg PO BID 02/11/19 01/16/22 History tablet nitroglycerin 0.4 mg sublingual 0.4 mg sublingual Q5M PRN Chest 02/11/19 01/16/22 History tablet Pain #1 tab amlodipine 2.5 mg tablet 2.5 mg PO QAM 12/12/21 01/16/22 History cyanocobalamin (vitamin B-12) 1,000 mcg PO QAM 12/12/21 01/16/22 History 1,000 mcg capsule metoprolol succinate 100 mg 100 mg PO QAM 12/12/21 01/16/22 History tablet,extended release 24 hr ondansetron 4 mg disintegrating 4 mg PO Q6H PRN Nausea 12/12/21 01/16/22 History tablet polyethylene glycol 3350 17 gram 17 g PO DAILY PRN Constipation 12/12/21 01/16/22 History oral powder packet venetoclax 100 mg tablet 100 mg PO QAM 12/12/21 01/16/22 History (Venclexta) acyclovir 400 mg tablet 400 mg PO BID #14 tabs 12/15/21 01/16/22 Rx levofloxacin 500 mg tablet 500 mg PO QAM #7 tabs 12/15/21 01/16/22 Rx allopurinol 300 mg tablet 300 mg PO QAM #30 tabs 01/04/22 01/16/22 Rx rosuvastatin 40 mg tablet (Crestor) 40 mg PO DAILY 01/05/22 01/16/22 History voriconazole 200 mg tablet (Vfend) 200 mg PO BID #14 tabs 01/19/22 Rx Patient History Medical History AML (acute myeloblastic leukemia) Aortic stenosis Arteriosclerotic coronary artery disease Benign enlargement of prostate Carotid artery plaque Dyslipidemia Hypertension Past myocardial infarction Tubulovillous adenoma of colon Surgical History History of cardiac cath cath stent 1 first obtuse marginal branch, type bare metal cath stent 2 first saphenous vein graft, type drug-eluting History of colonoscopy History of coronary artery bypass graft x 3 History of hemorrhoidectomy S/P CABG x 3 Family History Brother Coronary heart disease 5 brothers Father Myocardial infarction Denies family history of Ovarian cancer Prostate cancer Breast cancer Colorectal cancer Lung disease Social History Smoking Status: Former smoker Tobacco Type: Cigarettes Age Started Using Tobacco: 14; Age Quit Using Tobacco: 21; packs per day: 1; Years Smoked: 7; Second Hand Exposure: No; Hx Alcohol Use: No Hx Substance Use: No Preferred Language: Comoran Communication Ability: Effective Visual Impairment: Limited Hearing Ability: Use of Hearing Aid Distribution Coordinator Required: No Beliefs That Will Affect Care: None marital status: Current Living Situation: Spouse Current Living Situation Comment: Lives with in a house has a hospital bed downstairs current occupational status: employed 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 How many Children do You have: 4 Feels Safe at Home: Yes Childhood Exposure to Second-Hand Smoke: No caffeine: Yes (cup of coffee in morning ) Dental Care, Regularly: No Physical Activity Frequency: Daily Seatbelt Use: always Sunscreen Use: Yes Assistive Devices: None Review of System Constitutional: as per Subjective / HPI, + fever, + chills, + body aches and + malaise Ear, Nose, Mouth, Throat: no mouth lesions, no dental pain, no loose teeth, no bleeding gums, no sore throat and no pain with swallowing Respiratory: no cough, no chest congestion, no dyspnea, no dyspnea on exertion and no hemoptysis Cardiovascular: no chest pain, no chest pain at rest, no chest pain with ac tivity, no dyspnea, no dyspnea at rest, no palpitations, no lightheadedness and no syncope Gastrointestinal: as per Subjective / HPI; no abdominal pain, no belching, no bloating, no pain with swallowing, no change in stools and no diarrhea/loose stools Genitourinary (Male): no dysuria, no difficulty urinating, no urinary frequency, no urinary hesitancy and no urinary incontinence Physical Exam Respiratory: normal respiratory effort, lungs clear to auscultation Cardiovascular: RRR, no murmur, no edema Skin: no rashes, warm and dry Buttock area there is are 2 ulcerated or open areas, tender to touch Psychiatric: A+Ox3, euthymic affect Genitourinary: no testicular masses, no penis abnormality Scrotum diffusely enlarged Results & Data ([facility]) Vital Signs (Past 12 Hours) Vital Signs Temp Pulse Pulse Resp BP BP Pulse Ox 01/24/22 09:00 01/24/22 07:55 37.4 C 98 H 18 121/71 97 01/24/22 06:54 98 H 01/24/22 04:00 37.0 C 97 H 18 122/75 95 01/24/22 00:25 36.8 C 94 H 18 111/66 95 01/23/22 23:55 95 H O2 Del Method 01/24/22 09:00 Room Air 01/24/22 07:55 Room Air 01/24/22 06:54 01/24/22 04:00 Room Air 01/24/22 00:25 Room Air 01/23/22 23:55 Laboratory Results Laboratory Tests 01/21/22 01/23/22 01/24/22 16:37 10:00 08:03 WBC 0.17 L* Hgb 8.0 L Hct 22.4 L Plt Count 17 L* D Sodium Potassium 3.2 L Creatinine AST ALT Alkaline Phosphatase Total Creatine Kinase Urine Appearance Cloudy A Urine pH 6.0 Ur Specific [place] 1.013 Urine Protein 3+ H Urine Glucose (UA) Negative Urine Blood 3+ H Ur Leukocyte Esterase Trace H Urine WBC (Auto) 5-10 H Urine RBC (Auto) 5-10 H U Epithel Cells (Auto) >30 H 01/24/22 08:03 WBC Hgb Hct Plt Count Sodium 134 L Potassium Creatinine 0.68 AST 100 H ALT 103 H Alkaline Phosphatase 147 H Total Creatine Kinase 1646 H Urine Appearance Urine pH Ur Specific [place] Urine Protein Urine Glucose (UA) Urine Blood Ur Leukocyte Esterase Urine WBC (Auto) Urine RBC (Auto) U Epithel Cells (Auto) Blood Culture Aerobic Final 01/24/22-1034 Organism 1 Coag neg staph not lugdunensis Sens Sensitivities to Follow CNSnl RX M.I.C. --- --------- Clindamycin S <=0.5 Daptomycin S <=0.5 Erythromycin S <=0.5 Oxacillin S <=0.25 Tetracycline S <=4 Trimeth/Sulfa R >238 Vancomycin S 2 Medications Administered Medications Cefepime HCl 2,000 mg/ Syringe 20 mls @ 5 mls/min IV Q8H [facility]; Protocol Stop: 01/29/22 13:59 Vancomycin HCl 1,250 mg/ (Sodium Chloride) 275 mls @ 200 mls/hr IV Q12H [facility] Stop: 02/07/22 15:59 Acyclovir (Acyclovir 400 Mg Tab) 400 mg PO BID [facility] Stop: 02/20/22 12:59 Voriconazole (Voriconazole 200 Mg Tablet) 200 mg PO BID [facility] Stop: 02/20/22 20:59
--- NOTE | 2022-01-24 10:32 | Progress Note ---
Date of Service January 24, 2022 Assessment & Plan (1) Pancytopenia: Plan: Due to AML as well as recent treatment with decitabine/venetoclax (2) Rhabdomyolysis: Plan: Improving. Possibly due to immobility/statin. Less likely paraneoplastic syndrome from AML (3) AML (acute myeloblastic leukemia): Plan: S/p 2 cycles of decitabine. Venetoclax started about 2 weeks ago. (4) Severe thrombocytopenia: Plan: Due to AML/decitabine (5) Anemia: Anemia type: unspecified type Qualified Code(s): D64.9 - Anemia, unspecified (6) Febrile neutropenia: Plan Pleasant gentleman who was recently diagnosed with AML in November,. He is s/p 2 cycles of decitabine and was scheduled to receive cycle 3 of treatment under the care of Dr. Sanchez at [facility] tomorrow. He presented with worsening fatigue, lower extremity weakness and rhabdomyolysis. Blood cultures are now positive for staphylococcal species x2 for which she is currently on broad- spectrum antibiotics. 1. Neutropenic sepsis: Blood culture positive for Staphylococcus species x2 with possible source being sacral wound. Agree with broad-spectrum antibiotics in the setting of severe neutropenia from AML. Continue voriconazole and acyclovir 2. AML: Continue to hold venetoclax given significant pancytopenia, decline in performance status and generalized weakness. 3. Pancytopenia: Likely due to treatment as well as AML. Please transfuse with PRBC for hemoglobin less than 7.5, platelet transfusion for platelets less than 15,000. Would not recommend G-CSF in the setting of AML 4. Rhabdomyolysis: Improving. Of unclear etiology. Denies any new medications/trauma. Possibly statin induced. There have been case reports of AML causing rhabdomyolysis as paraneoplastic phenomenon. May consider muscle biopsy in the future/when clinically stable if no other etiology is identified. IV fluid hydration Admission and Anticipated Discharge Date Admission Date: January 21, 2022 Results & Data ([facility]) Vital Signs (Past 12 Hours) Vital Signs Temp Pulse Pulse Resp BP BP Pulse Ox 01/24/22 09:00 01/24/22 07:55 37.4 C 98 H 18 121/71 97 01/24/22 06:54 98 H 01/24/22 04:00 37.0 C 97 H 18 122/75 95 01/24/22 00:25 36.8 C 94 H 18 111/66 95 01/23/22 23:55 95 H O2 Del Method 01/24/22 09:00 Room Air 01/24/22 07:55 Room Air 01/24/22 06:54 01/24/22 04:00 Room Air 01/24/22 00:25 Room Air 01/23/22 23:55
--- NOTE | 2022-01-24 13:16 | Pharmacy Report ---
Pharmacy Vanc AUC Short Note - Date of Service January 24, 2022 - Assessment & Plan Assessment 76 year old M receiving IV vancomycin and cefepime for treatment of bacteremia. Patient pancytopenic and immunocompromised. Blood cultures with coag neg staph - oxacillin sensitive. Awaiting ID recommendations. Echo with no valvular vegetations noted. Day # 3 of antimicrobial therapy. Plan Vancomycin * AUC/HETAL is the preferred PK/PD target for vancomycin * AUC guided dosing is effective and associated with decreased risk of nephrotoxicity compared to traditional trough targets * Vancomycin level came back at ~7 mcg/ml - this correlates to AUC/HETAL of ~370, will therefore increase dosing to 1250 mg iv q 12 hrs * Plan to start new dosing this afternoon. This dosing is estimated to predict a trough level of ~13 mcg/ml and achieve target AUC/HETAL of 400-600 mg/L.hr and may be associated with a 8% risk of nephrotoxicity * Plan to recheck level in next 48 hours if continued Pharmacy will continue to follow and will adjust dose/frequency as necessary. Thank you.
[2022-01-24] MEDS: SENNA 8.6 MG TAB PO SCH (14:38)
[2022-01-24] MEDS: POLYETHYLENE (MIRALAX) 17 GM PACK PO SCH (14:38)
[2022-01-24] MEDS: VANCOMYCIN HCL 1,250 MG in SODIUM CHLORIDE 0.9% 250 ML IV SCH (15:16)
--- NOTE | 2022-01-24 17:48 | Progress Notes ---
BRIEF FOLLOW UP NOTE DATE OF SERVICE: 01/24/2022. ASSESSMENT: 1. AML. 2. Pancytopenia. 3. Rhabdomyolysis. 4. Febrile neutropenia. Pleasant gentleman with recent diagnosis of AML, for which he is status post 2 cycles of decitabine u nder the care of Dr. Sanchez at [facility]. Presented with worsening fatigue, lower extremity weakness, rhabd omyolysis and neutropenic fever. Blood cultures positive for Staphylococcus species x2 for which he is currently on broad-spectrum antibiotics. Labs show overall stable pancytopenia. Continue with br oad-spectrum antibiotics. Transfuse for hemoglobin less than 7.5, platelet count less than 15,000. No indication for G-CSF in the setting of AML. Continue with voriconazole and acyclovir. Hematology will continue following while hospitalized. Please feel free to call if you have any further questi ons. Job ID: [id number]
--- NOTE | 2022-01-24 20:19 | Hospitalist Progress Note ---
Date of Service January 24, 2022 Assessment & Plan (1) Pancytopenia: Plan: Patient admitted with antineoplastic induced pancytopenia and generalized weakness. Weakness secondary to symptomatic anemia but also secondary to bacteremia and infection With hemoglobin 7.0 on admission, platelets 11, and WBC count severely low at 0.1 with neutropenia. With fevers at home to 100 for a couple of weeks and then high spiking fevers up until 01/23/22. High fevers likely from [employer] bacteremia. s/p 1 unit PRBCs on 01/21 s/p 1 unit of platelets - transfusion stopped just before completion due to 20 point drop in blood pressure - no evidence of transfusion reaction however he then tolerated full platelet transfusion on 01/23 Platelets 17 today - oncology recommends transfusion for platelets less than 15 Continue neutropenic precautions Continue daily CBC No role for Neupogen in the setting of AML Continue prophylactic acyclovir, voriconazole, Holding prophylactic levofloxacin while on cefepime (2) Bacteremia: Plan: Bacteremia/septicemia, POA 2nd to coag neg staph source - lower sacral region ulceration? repeat blood cultures pending but negative does not have a port or hardware echo negative for SBE continue current IV antibiotics appreciate ID consultation and recs await final repeat blood cultures (3) Sepsis: Plan: As above improving clinically (4) Symptomatic anemia: Plan: s/p 1 unit PRBCs this admission daily cbc while here (5) Rhabdomyolysis: Plan: Patient's CK was >3000 upon admission. Continues to trend down with IV fluids. cause?? statin induced? paraneoplastic from AML? 2nd to chemo? exact etiology uncertain but continues to improved. hold statin. cont IV fluids. repeat labs am. (6) Pulmonary nodules: Plan: Noted to have multiple tiny nodules on thoracic spine CT Checked chest CT which also shows nodules and mediastinal and hilar lymphadenopathy-noted to be present on previous CT chest in 11/2021 Covering for pneumonia with cefepime and vancomycin Consult pulmonology appreciated-recommends that since there is stability of the nodules and lymphadenopathy since CT scan from November, likely not related to chemotherapy, but is at risk for opportunistic infections. Pulmonary recommends repeat CT chest in 8 weeks to reassess (7) Hypokalemia: Plan: replaced resolved (8) AML (acute myeloblastic leukemia): Plan: Holding venetoclax due to ongoing infection and low blood counts Appreciate oncology consultation and recs Daily CBC Neutropenic precautions Transfuse as needed Last decitabine was 1 week ago (9) Sacral wound: Plan: Appreciate wound care nurse consult source of bacteremia? ID recommends HSV swab to this area to be completed (10) Transaminitis: Plan: Secondary to rhabdomyolysis? Secondary to liver involvement from AML? Statin induced? other? Cont to trend LFTs (11) Elevated troponin: Plan: Likely demand ischemia secondary to acute infection and symptomatic anemia Echocardiogram -- preserved EF, neg wall motion abnormalities, mod-severe No ischemic symptoms (12) Dyslipidemia: Plan: hold statin due to rhabdo (13) Hypertension: Plan: Amlodipine stopped Remains on metoprolol succinate 100mg daily (14) Benign enlargement of prostate: Plan: no LUTS at this time (15) Arteriosclerotic coronary artery disease: Plan: With a history of CABG previously Discontinued aspirin when started chemotherapy, discontinuing statin as above Continue Toprol-XL No ischemic symptoms even in face of anemia, etc (16) Aortic stenosis: Plan: Moderate-severe aortic stenosis no symptoms no CHF Monitor Plan DVT prophylaxis - SCDs only PT, OT evals care d/w ID by phone and with Dr Burgos - oncology Admission and Anticipated Discharge Date Admission Date: January 21, 2022 Subjective patient feeling "a little better today" appetite modestly improved denies dyspnea denies pain in any location no fever since 01/23 energy is better tele overnight wnl Review of Systems Review of Systems: gen - no fevers or chills cv - no chest pain pulm - no cough or dyspnea or RODRIGUEZ GI - no nausea or vomiting Physical Exam Physical Exam: gen - nontoxic, looks good today mouth - no thrush, no mucositis neck - no JVD heart - RRR, s1 s2, 2/6 holosystolic murmur RUSB/apex lungs - CTA b/l, no rales or wheeze abd - soft NT ND BS+ ext - no edema, pulses 2+ b/l psych - a/o x 3 Results & Data Results & Data ([facility]) Vital Signs (Past 12 Hours) Vital Signs Temp Pulse Pulse Resp BP BP Pulse Ox 01/24/22 19:02 37.5 C 102 H 18 117/71 95 01/24/22 16:04 37.5 C 97 H 18 118/70 96 01/24/22 15:06 101 H 01/24/22 11:35 37.1 C 99 H 19 121/70 96 01/24/22 09:00 O2 Del Method 01/24/22 19:02 Room Air 01/24/22 16:04 Room Air 01/24/22 15:06 01/24/22 11:35 Room Air 01/24/22 09:00 Room Air Laboratory Results Laboratory Results - last 24 hr 01/21/22 01/24/22 01/24/22 10:32 08:03 08:03 WBC 0.17 L* RBC 2.66 L Hgb 8.0 L Hct 22.4 L MCV 84.2 MCH 30.1 MCHC 35.7 RDW Std Deviation 40.0 RDW Coeff of Marty 13.1 Plt Count 17 L* D MPV 9.0 L Immature Gran % (Auto) Cancelled Neut % (Auto) Cancelled Lymph % (Auto) Cancelled Eagle % (Auto) Cancelled Eos % (Auto) Cancelled Baso % (Auto) Cancelled Neut # (Auto) Cancelled Lymph # (Auto) Cancelled Eagle # (Auto) Cancelled Eos # (Auto) Cancelled Baso # (Auto) Cancelled Immature Gran # (Auto) Cancelled Neutrophils % (Manual) Cancelled Band Neutrophils % Cancelled Lymphocytes % (Manual) Cancelled Prolymphocyte % Cancelled Reactive Lymphs % (Man) Cancelled Monocytes % (Manual) Cancelled Eosinophils % (Manual) Cancelled Basophils % (Manual) Cancelled Metamyelocytes % (Man) Cancelled Myelocytes % (Man) Cancelled Promyelocytes % (Man) Cancelled Blast Cells % (Manual) Cancelled Plasma Cell % (Manual) Cancelled Other Cells % Cancelled Nucleated RBC % Cancelled Neutrophils # (Manual) Cancelled Band Neutrophils # Cancelled Total Absolute Neuts Cancelled Lymphocytes # (Manual) Cancelled Prolymphocyte # Cancelled Reactive Lymphs # Cancelled Total Abs Lymphocytes Cancelled Monocytes # (Manual) Cancelled Eosinophils # (Manual) Cancelled Basophils # (Manual) Cancelled Metamyelocytes # (Man) Cancelled Myelocytes # (Manual) Cancelled Promyelocytes # (Man) Cancelled Blast Cells # (Man) Cancelled Plasma Cell # (Manual) Cancelled Other Cells # Cancelled Nucleated RBCs # (Man) Cancelled Hypersegmented Neuts Cancelled Hyposegmented Neuts Cancelled Hypogranular Neuts Cancelled Large Granular Lymphs Cancelled # Lrg Granular Lymphs Cancelled Hairy Cells Cancelled Smudge Cells Cancelled Toxic Granulation Cancelled Toxic Vacuolation Cancelled Dohle Bodies Cancelled Alyssa Rods Cancelled Hypogranular Platelets Cancelled Clumped Platelets Cancelled Giant Platelets Cancelled Platelet Satelliting Cancelled RBC Morphology Cancelled Polychromasia Cancelled Hypochromasia Cancelled Poikilocytosis Cancelled Basophilic Stippling Cancelled Anisocytosis Cancelled Microcytosis Cancelled Macrocytosis Cancelled Spherocytes Cancelled Pappenheimer Bodies Cancelled Sickle Cells Cancelled Target Cells Cancelled Tear Drop Cells Cancelled Ovalocytes Cancelled Stomatocytes Cancelled Manzano-Mohawk Bodies Cancelled Echinocytes Cancelled Acanthocytes (Spur) Cancelled Rouleaux Cancelled RBC Agglutinates Cancelled Schistocytes Cancelled Sezary Cell Cancelled Sodium 134 L Potassium 3.5 Chloride 104 Carbon Dioxide 24 Anion Gap 6 BUN 14 Creatinine 0.68 Est Cr Clr Drug Dosing 86.6 Est GFR ( Amer) 106.0 Est GFR (Non-Af Amer) 91.5 BUN/Creatinine Ratio 20.6 H Glucose 106 H Calcium 7.9 L Phosphorus 3.0 Magnesium 1.9 Total Bilirubin 0.5 AST 100 H ALT 103 H Alkaline Phosphatase 147 H Total Creatine Kinase 1646 H Total Protein 6.0 Albumin 2.3 L Globulin 3.7 Albumin/Globulin Ratio 0.6 L Vancomycin Trough Blood Parasites ID Cancelled Crossmatch See Detail 01/24/22 08:03 WBC RBC Hgb Hct MCV MCH MCHC RDW Std Deviation RDW Coeff of Marty Plt Count MPV Immature Gran % (Auto) Neut % (Auto) Lymph % (Auto) Eagle % (Auto) Eos % (Auto) Baso % (Auto) Neut # (Auto) Lymph # (Auto) Eagle # (Auto) Eos # (Auto) Baso # (Auto) Immature Gran # (Auto) Neutrophils % (Manual) Band Neutrophils % Lymphocytes % (Manual) Prolymphocyte % Reactive Lymphs % (Man) Monocytes % (Manual) Eosinophils % (Manual) Basophils % (Manual) Metamyelocytes % (Man) Myelocytes % (Man) Promyelocytes % (Man) Blast Cells % (Manual) Plasma Cell % (Manual) Other Cells % Nucleated RBC % Neutrophils # (Manual) Band Neutrophils # Total Absolute Neuts Lymphocytes # (Manual) Prolymphocyte # Reactive Lymphs # Total Abs Lymphocytes Monocytes # (Manual) Eosinophils # (Manual) Basophils # (Manual) Metamyelocytes # (Man) Myelocytes # (Manual) Promyelocytes # (Man) Blast Cells # (Man) Plasma Cell # (Manual) Other Cells # Nucleated RBCs # (Man) Hypersegmented Neuts Hyposegmented Neuts Hypogranular Neuts Large Granular Lymphs # Lrg Granular Lymphs Hairy Cells Smudge Cells Toxic Granulation Toxic Vacuolation Dohle Bodies Alyssa Rods Hypogranular Platelets Clumped Platelets Giant Platelets Platelet Satelliting RBC Morphology Polychromasia Hypochromasia Poikilocytosis Basophilic Stippling Anisocytosis Microcytosis Macrocytosis Spherocytes Pappenheimer Bodies Sickle Cells Target Cells Tear Drop Cells Ovalocytes Stomatocytes Manzano-Mohawk Bodies Echinocytes Acanthocytes (Spur) Rouleaux RBC Agglutinates Schistocytes Sezary Cell Sodium Potassium Chloride Carbon Dioxide Anion Gap BUN Creatinine Est Cr Clr Drug Dosing Est GFR ( Amer) Est GFR (Non-Af Amer) BUN/Creatinine Ratio Glucose Calcium Phosphorus Magnesium Total Bilirubin AST ALT Alkaline Phosphatase Total Creatine Kinase Total Protein Albumin Globulin Albumin/Globulin Ratio Vancomycin Trough 7.3 L Blood Parasites ID Crossmatch PG Care Time/CCT Total # of Minutes Spent Total Time Spent with Patient: Total time spent is greater than 50% in coordination of care (as documented) at patient's floor/unit and/or counseling patient: Coding Level of Care Code 53932 Subseq Hosp Care Lvl 3 Diagnoses Pancytopenia D61.818 Bacteremia R78.81 Sepsis A41.9 Symptomatic anemia D64.9 Rhabdomyolysis M62.82 Pulmonary nodules R91.8 Hypokalemia E87.6 AML (acute myeloblastic leukemia) C92.00 Sacral wound S31.000A Transaminitis R74.01 Elevated troponin R77.8 Dyslipidemia E78.5 Hypertension I10 Benign enlargement of prostate N40.0 Arteriosclerotic coronary artery disease I25.10 Aortic stenosis I35.0
[2022-01-25] MEDS: VANCOMYCIN HCL 1,250 MG in SODIUM CHLORIDE 0.9% 250 ML IV SCH ×2 (03:58→15:08)
[2022-01-25] MEDS: SODIUM CHLORIDE 0.9% 1000ML 1,000 ML IV SCH ×2 (06:05→15:08)
[2022-01-25] MEDS: CEFEPIME 2,000 MG in SYRINGE 0 ML IV SCH ×3 (06:06→21:59)
[2022-01-25] MEDS: POLYETHYLENE (MIRALAX) 17 GM PACK PO SCH (08:10)
[2022-01-25] MEDS: VORICONAZOLE 200 MG TABLET PO SCH ×2 (08:10→20:26)
[2022-01-25] MEDS: SENNA 8.6 MG TAB PO SCH (08:10)
[2022-01-25] MEDS: CYANOCOBALAMIN (B-12) 500 MCG TABLET PO SCH (08:10)
[2022-01-25] MEDS: ACYCLOVIR 400 MG TAB PO SCH ×2 (08:11→20:26)
[2022-01-25] MEDS: METOPROLOL SUCC 50MG EXT REL TAB PO SCH (08:11)
[2022-01-25] MEDS: ASCORBIC ACID 500 MG TAB PO SCH ×2 (08:11→20:26)
[2022-01-25] MEDS: allopurinoL 300 MG TAB PO SCH (08:11)
[2022-01-25 08:20] LABS: Albumin Globulin Ratio 0.7 (0.9-2); Albumin Level 2.3 gm/dl (3.4-5.0); BUN Creatinine Ratio 23.1 (10-20); Bilirubin,Total 0.4 mg/dl (0.2-1.0); Calcium 7.8 mg/dl (8.5-10.1); Creatinine Clr Calc Pharmacy 90.6 ml/min; Est GFR (Non-African American) 93.2 ml/min; Globulin 3.4 gm/dl (2.5-4.0); Potassium 3.2 mmol/L (3.5-5.1); Total Protein 5.7 gm/dl (6.0-8.3)
[2022-01-25 08:28] LABS: Hematocrit (blood only) 20.4 % (40.1-51.0); Hemoglobin 7.2 g/dl (14.0-18.0); Mean Corpuscular Hemoglobin 29.8 pg (25.0-34.0); Mean Corpuscular Hgb Conc 35.3 g/dL (32.0-36.0); Mean Corpuscular Volume 84.3 fL (80.0-100.0); Mean Platelet Volume 10.4 fL (9.4-12.4); Platelet Count 12 K/uL (130-400); RDW Coefficient of Variation 12.9 % (11.5-14.5); Red Blood Count 2.42 M/uL (4.63-6.08); White Blood Count 0.19 K/ul (4.8-10.8)
[2022-01-25] MEDS ORDERED: SODIUM CHLORIDE 0.9% 250 ML IV PRN (08:53)
[2022-01-25] MEDS ORDERED: ACETAMINOPHEN 325 MG TAB PO SCH (09:00)
[2022-01-25] MEDS: POTASSIUM CHLORIDE CRTAB 20 MEQ TABCR PO SCH ×3 (09:54→20:26)
--- NOTE | 2022-01-25 10:02 | Infectious Disease Progress Nt ---
Date of Service January 25, 2022 Assessment & Plan (1) Febrile neutropenia: (2) Pancytopenia: (3) Severe thrombocytopenia: (4) Bacteremia: (5) Transaminitis: (6) Rhabdomyolysis: (7) Pulmonary nodules: (8) AML (acute myeloblastic leukemia): Plan 76 yo M with h/o recently diagnosed AML in 11/2021 s/p cycle 2 with decitabine and venetoclax, on ppx acyclovir, voriconazole and levofloxacin, CAD s/p CABG, recent hospitalization for pancytopenia, admitted to [facility] on 01/21/2022 with intermittent fevers, lower extremity weakness and progressively worsening fatigue. ID has been consulted for neutropenic fevers. PROBLEM LIST 1. Profound Neutropenia with Pancytopenia 2. Fevers, improved 3. MSSE positive blood cultures, No port placement. No hardware. 4. Pulmonary nodules 5. Transaminitis/Rhabdomyolysis 6. AML on chemotherapy On admission, initial VSS but he has become febrile since. Labs notable for profound neutropenia,hemoglobin of 7.0, hematocrit of 19 and platelet count 11,000. Also noted was elevated creatinine kinase of 3491. Troponins elevated. 01/21 Blood cultures 4/4 bottles CoNS (2 separate peripheral sites, oxacillin sensitive). 10/ Blood cultures in lab. CT Chest Diffuse bilateral centrilobular micronodules are similar in appearance to the 11/22/2021 , radiology read: infectious or inflammatory pneumonitis. Stable 6mm nodule in RUL. Diffuse LAD. Cervical, Thoracic, lumbar spine CT negative for acute findings. CT head no acute findings. Patient was started on Vancomycin, Cefepime. TTE official read pending. Exam notable for only peripheral IVs, no port or central lines. No rash, thrush or mucositis. Positive buttock lesions. Discussion: Patient with profound neutropenia and sudden onset fevers. He is growing MSSE in his blood. Typically I would suspect this to be a contaminant especially without hardware or central line placement. It is difficult to assume this the case in setting of neutropenia. His buttock lesion may have caused him to be transiently bacteremic. He also grew CoNS in 4/4 bottles. Imaging is also concerning for pulmonary lesions that have not changed for >2 months. He is not hypoxic and has no pulmonary complaints. He is on Voriconazole and Levaquin ppx. I will review imaging with Radiology further. Finally his buttock area may be the source of infection, I will order HSV PCR to ensure this is not herpetic (although would be atypical appearing and he is on acyclovir). Recommend: -F/U repeat blood cultures, NGTD -Monitor fever curve, improved -Follow LFTs/CPK -Repeat cultures are negative, dc Vancomycin -Check sputum cultures, MRSA nares, check HSV swab of buttock lesion (ordered) -C/W Neutropenic precautions ID will follow with you closely. Amairani Hunt MD [facility], [facility] Admission and Anticipated Discharge Date Admission Date: January 21, 2022 Subjective Subsequent visit was provided via telemedicine using two-way real-time interactive telecommunication between the patient and the telemedicine provider. For the duration of the visit, the provider was performing the assessment from a different facility than the patient. This includesuse of bluetooth stethoscope forauscultationperformed by the telepresenter that the telemedicine provider can hear if described in the physical exam. Receiving And Processing Supervisor contact information: Please call [facility] Call Center [phone]. (Phone Number For Physician Use Only) After establishing a telemedicine visit, patient was: Patient was verified with two unique identifiers, Patient/authorized rep acknowledged consent and understanding and Gave permission to continue telehealth session Subsequent Time Spent w Inpatient: 35 minutes Patient feels about the same. He denies diarrhea, fevers, new skin rash, Backside feels much improved Physical Exam Respiratory: normal respiratory effort, lungs clear to auscultation Cardiovascular: RRR, no murmur, no edema Skin: no rashes, warm and dry Psychiatric: A+Ox3, euthymic affect Genitourinary: no testicular masses, no penis abnormality Results & Data ([facility]) Vital Signs (Past 12 Hours) Vital Signs Temp Pulse Pulse Resp BP BP Pulse Ox 01/25/22 07:16 37.3 C 107 H 18 120/72 93 01/25/22 07:07 103 H 01/25/22 03:19 37 C 99 H 18 116/68 94 01/25/22 00:19 100 H 01/24/22 23:23 01/24/22 23:21 37.3 C 102 H 18 119/74 94 O2 Del Method 01/25/22 07:16 Room Air 01/25/22 07:07 01/25/22 03:19 Room Air 01/25/22 00:19 01/24/22 23:23 Room Air 01/24/22 23:21 Room Air Laboratory Results Laboratory Tests 01/25/22 01/25/22 07:09 07:09 WBC 0.19 L* Hgb 7.2 L Hct 20.4 L* Plt Count 12 L* Sodium 133 L Potassium 3.2 L Est GFR (Non-Af Amer) 93.2 BUN/Creatinine Ratio 23.1 H Calcium 7.8 L AST 85 H Total Creatine Kinase 888 H Microbiology 01/21/22 20:01 Blood Aerobic Blood Culture - Final 01/21/22 20:01 Blood Anaerobic Blood Culture - Final Coag neg staph not lugdunensis Coag neg staph not lugdunensis 01/21/22 14:26 Blood Aerobic Blood Culture - Final 01/21/22 14:26 Blood Anaerobic Blood Culture - Final Coag neg staph not lugdunensis Coag neg [place] [address] / Director: Dewayne Buchanan M.D. Clinical Laboratory Report Name: ELIAZAR JOYCE Acct: [id number] Status: [place] 1945 [facility] [place] 01/21/22 Age: 76 Sex: M Dis Date: Loc: [address]/Bed: W258-1 Spec: [id number] Collected: 01/22/22 Received: 01/22/[address]: Denice Patel MD Copy To: Flaco Estrada M.D. Source: Blood OV Order: Ordered: Blood Culture Comments: Comment Default is separate sites, same time Procedure Result Verified Site Blood Culture Aerobic Preliminary 01/24/22 No growth in Aerobic bottle after 48 hours. Blood Culture Anaerobic Preliminary 01/24/22 No growth in Anaerobic bottle after 48 hours.
[2022-01-25] MEDS: ACETAMINOPHEN 500 MG TAB PO PRN (17:51)
--- NOTE | 2022-01-25 22:18 | Hospitalist Progress Note ---
Date of Service January 25, 2022 Assessment & Plan (1) Pancytopenia: Plan: Patient admitted with antineoplastic induced pancytopenia and generalized weakness. Weakness secondary to symptomatic anemia but also secondary to bacteremia. With hemoglobin 7.0 on admission, platelets 11, and WBC count severely low at 0.1 with neutropenia. With fevers at home to 100 for a couple of weeks and then high spiking fevers up until 01/23/22. High fevers likely from [employer] bacteremia. s/p 1 unit PRBCs on 01/21 s/p 1 unit of platelets - transfusion stopped just before completion due to 20 point drop in blood pressure - no evidence of transfusion reaction however he then tolerated full platelet transfusion on 01/23 Platelets 12 today and Hb 7.2 Tx 1 unit of irradiated PRBCs and 1 unit of irradiated platelets Pre-med with tylenol (oncology recommends transfusion for platelets less than 15 and Hb <7.5) Continue neutropenic precautions Continue daily CBC No role for Neupogen in the setting of AML Continue prophylactic acyclovir, voriconazole, Holding prophylactic levofloxacin while on cefepime HSV culture from sacral rash sent/pending (2) Bacteremia: Plan: Bacteremia/septicemia, POA 2nd to coag neg staph source - lower sacral region ulceration? repeat blood cultures 01/22 and 01/23 NEGATIVE does not have a port or hardware echo negative for SBE appreciate telehealth ID consult & recs stop IV vanco cont cefepime IV - await further recs from ID physician (3) Sepsis: Plan: As above improved clinically with repeat blood cx's negative to date (4) Symptomatic anemia: Plan: s/p 1 unit PRBCs this admission another unit to be given today repeat CBC in am B12 level in November was <200 -- remains on B12 supplementation Folate wnl Ferritin >5000 in November c/w acute phase reactant (5) Rhabdomyolysis: Plan: Patient's CK was >3000 upon admission. Continues to trend down with IV fluids. Since he is receiving considerable volume from IV abx and blood products lower the fluid rate to 50cc/hr today. Likely d/c fluids completely in am. Recheck CPK 1 more time tomorrow morning. cause?? statin induced? paraneoplastic from AML? 2nd to chemo? plan -- hold statin. cont IV fluids as above. repeat labs am. (6) Pulmonary nodules: Plan: Noted to have multiple tiny nodules on thoracic spine CT Checked chest CT which also shows nodules and mediastinal and hilar lymphadenopathy-noted to be present on previous CT chest in 11/2021 Covering for pneumonia with cefepime and vancomycin Consult pulmonology appreciated-recommends that since there is stability of the nodules and lymphadenopathy since CT scan from November, likely not related to chemotherapy, but is at risk for opportunistic infections. Pulmonary recommends repeat CT chest in 8 weeks to reassess (7) Hypokalemia: Plan: replaced but low again today increase K supplementation recheck K and mag levels am (8) AML (acute myeloblastic leukemia): Plan: Holding venetoclax due to ongoing infection and low blood counts Appreciate oncology consultation and recs Daily CBC Neutropenic precautions Transfuse PRBCs/platelets today as above Last decitabine was ~1 week ago (9) Sacral wound: Plan: Appreciate wound care nurse consult source of bacteremia? ID recommends HSV swab to this area to be completed swab sent today (10) Transaminitis: Plan: Secondary to rhabdomyolysis? Secondary to liver involvement from AML? Statin induced? other? Cont to trend LFTs - but they are improving (11) Elevated troponin: Plan: Likely demand ischemia secondary to acute infection and symptomatic anemia Echocardiogram -- preserved EF, neg wall motion abnormalities, mod-severe No ischemic symptoms (12) Dyslipidemia: Plan: hold statin due to rhabdo (13) Hypertension: Plan: Amlodipine stopped Remains on metoprolol succinate 100mg daily BPs acceptable (14) Benign enlargement of prostate: Plan: no LUTS at this time (15) Arteriosclerotic coronary artery disease: Plan: With a history of CABG previously Discontinued aspirin when started chemotherapy, discontinuing statin as above Continue Toprol-XL No ischemic symptoms even in face of anemia, etc (16) Aortic stenosis: Plan: Moderate-severe aortic stenosis no symptoms no CHF Monitor (17) Mood disorder: Plan: patient admits to feeling down but denies overt depression with that said he was tearful throughout the visit watch carefully for development of full-blown depression - low threshold to begin SSRI (18) Hyponatremia: Plan: repeat BMP am Plan DVT prophylaxis - SCDs only PT, OT evals appreciated /daughter updated at bedside Admission and Anticipated Discharge Date Admission Date: January 21, 2022 Subjective tele stable overnight , daughter present at bedside during the visit he was receiving his blood products (PRBCs and platelets) during my rounds he feels tired today appetite fair-good had decent sized BM this am has been in bed much of the time denies new complaints Review of Systems Review of Systems: gen - no fevers/ chills overnight cv - no cp, no orthopnea pulm - no cough or wheezing or dyspnea musculo - myalgias resolved GI - no nausea or emesis Physical Exam Physical Exam: gen - nontoxic, looks tired but overall similar to yesterday mouth - no thrush, no mucositis; 2 areas of punctate petechiae on oral mucosa neck - no JVD heart - RRR, s1 s2, 2/6 holosystolic murmur RUSB/apex lungs - CTA b/l, no rales or wheeze abd - soft NT ND BS+ ext - no edema, pulses 2+ b/l psych - a/o x 3 but restricted affect and was tearful during the visit today Results & Data Results & Data ([facility]) Vital Signs (Past 12 Hours) Vital Signs Temp Pulse Pulse Resp BP BP BP 01/25/22 22:00 37.7 C H 100 H 18 119/74 01/25/22 19:00 38.7 C H 96 H 20 136/73 01/25/22 17:45 37.9 C H 97 H 18 131/73 01/25/22 17:21 37.5 C 101 H 18 127/73 01/25/22 17:18 98 H 01/25/22 16:21 37.4 C 98 H 18 114/84 01/25/22 15:51 37.6 C H 98 H 18 137/84 01/25/22 15:36 37.3 C 100 H 18 139/83 01/25/22 15:16 36.8 C 98 H 16 130/77 01/25/22 14:40 37.1 C 99 H 18 112/69 01/25/22 14:42 37.1 C 99 H 18 112/69 01/25/22 14:14 37.0 C 97 H 16 116/71 01/25/22 13:19 01/25/22 13:14 37.0 C 102 H 18 114/70 01/25/22 12:14 36.9 C 104 H 16 119/74 01/25/22 11:44 36.8 C 102 H 18 116/72 01/25/22 11:29 36.8 C 103 H 18 115/69 01/25/22 11:30 36.8 C 103 H 18 115/69 01/25/22 11:09 36.8 C 105 H 18 111/68 01/25/22 10:57 36.8 C 94 H 17 115/62 Pulse Ox Pulse Ox O2 Del Method O2 Flow Rate 01/25/22 22:00 94 Room Air 01/25/22 19:00 96 Room Air 01/25/22 17:45 96 01/25/22 17:21 97 01/25/22 17:18 01/25/22 16:21 96 01/25/22 15:51 96 01/25/22 15:36 98 01/25/22 15:16 96 01/25/22 14:40 96 01/25/22 14:42 96 Room Air 01/25/22 14:14 97 01/25/22 13:19 96 0 01/25/22 13:14 95 01/25/22 12:14 95 01/25/22 11:44 97 01/25/22 11:29 96 01/25/22 11:30 95 01/25/22 11:09 95 01/25/22 10:57 94 Room Air Laboratory Results Laboratory Results - last 24 hr 01/21/22 01/25/22 01/25/22 10:32 07:09 07:09 WBC 0.19 L* RBC 2.42 L Hgb 7.2 L Hct 20.4 L* MCV 84.3 MCH 29.8 MCHC 35.3 RDW Std Deviation 40.0 RDW Coeff of Marty 12.9 Plt Count 12 L* MPV 10.4 Immature Gran % (Auto) Cancelled Neut % (Auto) Cancelled Lymph % (Auto) Cancelled Benson % (Auto) Cancelled Eos % (Auto) Cancelled Baso % (Auto) Cancelled Neut # (Auto) Cancelled Lymph # (Auto) Cancelled Benson # (Auto) Cancelled Eos # (Auto) Cancelled Baso # (Auto) Cancelled Immature Gran # (Auto) Cancelled Neutrophils % (Manual) Cancelled Band Neutrophils % Cancelled Lymphocytes % (Manual) Cancelled Prolymphocyte % Cancelled Reactive Lymphs % (Man) Cancelled Monocytes % (Manual) Cancelled Eosinophils % (Manual) Cancelled Basophils % (Manual) Cancelled Metamyelocytes % (Man) Cancelled Myelocytes % (Man) Cancelled Promyelocytes % (Man) Cancelled Blast Cells % (Manual) Cancelled Plasma Cell % (Manual) Cancelled Other Cells % Cancelled Nucleated RBC % Cancelled Neutrophils # (Manual) Cancelled Band Neutrophils # Cancelled Total Absolute Neuts Cancelled Lymphocytes # (Manual) Cancelled Prolymphocyte # Cancelled Reactive Lymphs # Cancelled Total Abs Lymphocytes Cancelled Monocytes # (Manual) Cancelled Eosinophils # (Manual) Cancelled Basophils # (Manual) Cancelled Metamyelocytes # (Man) Cancelled Myelocytes # (Manual) Cancelled Promyelocytes # (Man) Cancelled Blast Cells # (Man) Cancelled Plasma Cell # (Manual) Cancelled Other Cells # Cancelled Nucleated RBCs # (Man) Cancelled Hypersegmented Neuts Cancelled Hyposegmented Neuts Cancelled Hypogranular Neuts Cancelled Large Granular Lymphs Cancelled # Lrg Granular Lymphs Cancelled Hairy Cells Cancelled Smudge Cells Cancelled Toxic Granulation Cancelled Toxic Vacuolation Cancelled Dohle Bodies Cancelled Alyssa Rods Cancelled Hypogranular Platelets Cancelled Clumped Platelets Cancelled Giant Platelets Cancelled Platelet Satelliting Cancelled RBC Morphology Cancelled Polychromasia Cancelled Hypochromasia Cancelled Poikilocytosis Cancelled Basophilic Stippling Cancelled Anisocytosis Cancelled Microcytosis Cancelled Macrocytosis Cancelled Spherocytes Cancelled Pappenheimer Bodies Cancelled Sickle Cells Cancelled Target Cells Cancelled Tear Drop Cells Cancelled Ovalocytes Cancelled Stomatocytes Cancelled Manzano-Houlton Bodies Cancelled Echinocytes Cancelled Acanthocytes (Spur) Cancelled Rouleaux Cancelled RBC Agglutinates Cancelled Schistocytes Cancelled Sezary Cell Cancelled Sodium 133 L Potassium 3.2 L Chloride 104 Carbon Dioxide 23 Anion Gap 6 BUN 15 Creatinine 0.65 Est Cr Clr Drug Dosing 90.6 Est GFR ( Amer) 108.0 Est GFR (Non-Af Amer) 93.2 BUN/Creatinine Ratio 23.1 H Glucose 110 H Calcium 7.8 L Total Bilirubin 0.4 AST 85 H ALT 87 H Alkaline Phosphatase 130 H Total Creatine Kinase 888 H Total Protein 5.7 L Albumin 2.3 L Globulin 3.4 Albumin/Globulin Ratio 0.7 L Nasal Screen MRSA (PCR) Herpes Virus Source Herpes Simplex Culture HSV I DNA PCR HSV II DNA PCR Blood Parasites ID Cancelled Blood Type Antibody Screen Crossmatch See Detail 01/25/22 01/25/22 01/25/22 07:09 08:40 08:40 WBC RBC Hgb Hct MCV MCH MCHC RDW Std Deviation RDW Coeff of Marty Plt Count MPV Immature Gran % (Auto) Neut % (Auto) Lymph % (Auto) Benson % (Auto) Eos % (Auto) Baso % (Auto) Neut # (Auto) Lymph # (Auto) Benson # (Auto) Eos # (Auto) Baso # (Auto) Immature Gran # (Auto) Neutrophils % (Manual) Band Neutrophils % Lymphocytes % (Manual) Prolymphocyte % Reactive Lymphs % (Man) Monocytes % (Manual) Eosinophils % (Manual) Basophils % (Manual) Metamyelocytes % (Man) Myelocytes % (Man) Promyelocytes % (Man) Blast Cells % (Manual) Plasma Cell % (Manual) Other Cells % Nucleated RBC % Neutrophils # (Manual) Band Neutrophils # Total Absolute Neuts Lymphocytes # (Manual) Prolymphocyte # Reactive Lymphs # Total Abs Lymphocytes Monocytes # (Manual) Eosinophils # (Manual) Basophils # (Manual) Metamyelocytes # (Man) Myelocytes # (Manual) Promyelocytes # (Man) Blast Cells # (Man) Plasma Cell # (Manual) Other Cells # Nucleated RBCs # (Man) Hypersegmented Neuts Hyposegmented Neuts Hypogranular Neuts Large Granular Lymphs # Lrg Granular Lymphs Hairy Cells Smudge Cells Toxic Granulation Toxic Vacuolation Dohle Bodies Alyssa Rods Hypogranular Platelets Clumped Platelets Giant Platelets Platelet Satelliting RBC Morphology Polychromasia Hypochromasia Poikilocytosis Basophilic Stippling Anisocytosis Microcytosis Macrocytosis Spherocytes Pappenheimer Bodies Sickle Cells Target Cells Tear Drop Cells Ovalocytes Stomatocytes Manzano-Houlton Bodies Echinocytes Acanthocytes (Spur) Rouleaux RBC Agglutinates Schistocytes Sezary Cell Sodium Potassium Chloride Carbon Dioxide Anion Gap BUN Creatinine Est Cr Clr Drug Dosing Est GFR ( Amer) Est GFR (Non-Af Amer) BUN/Creatinine Ratio Glucose Calcium Total Bilirubin AST ALT Alkaline Phosphatase Total Creatine Kinase Cancelled Total Protein Albumin Globulin Albumin/Globulin Ratio Nasal Screen MRSA (PCR) Negative Herpes Virus Source Herpes Simplex Culture Pending HSV I DNA PCR HSV II DNA PCR Blood Parasites ID Blood Type Antibody Screen Crossmatch 01/25/22 01/25/22 08:40 09:00 WBC RBC Hgb Hct MCV MCH MCHC RDW Std Deviation RDW Coeff of Marty Plt Count MPV Immature Gran % (Auto) Neut % (Auto) Lymph % (Auto) Benson % (Auto) Eos % (Auto) Baso % (Auto) Neut # (Auto) Lymph # (Auto) Benson # (Auto) Eos # (Auto) Baso # (Auto) Immature Gran # (Auto) Neutrophils % (Manual) Band Neutrophils % Lymphocytes % (Manual) Prolymphocyte % Reactive Lymphs % (Man) Monocytes % (Manual) Eosinophils % (Manual) Basophils % (Manual) Metamyelocytes % (Man) Myelocytes % (Man) Promyelocytes % (Man) Blast Cells % (Manual) Plasma Cell % (Manual) Other Cells % Nucleated RBC % Neutrophils # (Manual) Band Neutrophils # Total Absolute Neuts Lymphocytes # (Manual) Prolymphocyte # Reactive Lymphs # Total Abs Lymphocytes Monocytes # (Manual) Eosinophils # (Manual) Basophils # (Manual) Metamyelocytes # (Man) Myelocytes # (Manual) Promyelocytes # (Man) Blast Cells # (Man) Plasma Cell # (Manual) Other Cells # Nucleated RBCs # (Man) Hypersegmented Neuts Hyposegmented Neuts Hypogranular Neuts Large Granular Lymphs # Lrg Granular Lymphs Hairy Cells Smudge Cells Toxic Granulation Toxic Vacuolation Dohle Bodies Alyssa Rods Hypogranular Platelets Clumped Platelets Giant Platelets Platelet Satelliting RBC Morphology Polychromasia Hypochromasia Poikilocytosis Basophilic Stippling Anisocytosis Microcytosis Macrocytosis Spherocytes Pappenheimer Bodies Sickle Cells Target Cells Tear Drop Cells Ovalocytes Stomatocytes Manzano-Houlton Bodies Echinocytes Acanthocytes (Spur) Rouleaux RBC Agglutinates Schistocytes Sezary Cell Sodium Potassium Chloride Carbon Dioxide Anion Gap BUN Creatinine Est Cr Clr Drug Dosing Est GFR ( Amer) Est GFR (Non-Af Amer) BUN/Creatinine Ratio Glucose Calcium Total Bilirubin AST ALT Alkaline Phosphatase Total Creatine Kinase Total Protein Albumin Globulin Albumin/Globulin Ratio Nasal Screen MRSA (PCR) Herpes Virus Source Pending Herpes Simplex Culture HSV I DNA PCR Pending HSV II DNA PCR Pending Blood Parasites ID Blood Type A Positive Antibody Screen NEGATIVE Crossmatch See Detail Medications Administered blood cultures 07/18 bottles from 01/21/22 + for coag neg staph 01/22 and 01/23 blood cultures all negative PG Care Time/CCT Total # of Minutes Spent Total Time Spent with Patient: Total time spent is greater than 50% in coordination of care (as documented) at patient's floor/unit and/or counseling patient: Coding Level of Care Code 73209 Subseq Hosp Care Lvl 3 Diagnoses Pancytopenia D61.818 Bacteremia R78.81 Sepsis A41.9 Symptomatic anemia D64.9 Rhabdomyolysis M62.82 Pulmonary nodules R91.8 Hypokalemia E87.6 AML (acute myeloblastic leukemia) C92.00 Sacral wound S31.000A Transaminitis R74.01 Elevated troponin R77.8 Dyslipidemia E78.5 Hypertension I10 Benign enlargement of prostate N40.0 Arteriosclerotic coronary artery disease I25.10 Aortic stenosis I35.0 Mood disorder F39 Hyponatremia E87.1
[2022-01-26] MEDS: SODIUM CHLORIDE 0.9% 1000ML 1,000 ML IV SCH (06:26)
[2022-01-26] MEDS: CEFEPIME 2,000 MG in SYRINGE 0 ML IV SCH ×2 (06:30→14:19)
[2022-01-26 07:04] LABS: Hematocrit (blood only) 22.3 % (40.1-51.0); Hemoglobin 8.1 g/dl (14.0-18.0); Mean Corpuscular Hemoglobin 29.9 pg (25.0-34.0); Mean Corpuscular Hgb Conc 36.3 g/dL (32.0-36.0); Mean Corpuscular Volume 82.3 fL (80.0-100.0); Mean Platelet Volume 9.4 fL (9.4-12.4); Platelet Count 21 K/uL (130-400); RDW Coefficient of Variation 13.2 % (11.5-14.5); RDW Standard Deviation 39.8 fL (36.4-46.3); Red Blood Count 2.71 M/uL (4.63-6.08)
[2022-01-26 07:40] LABS: Albumin Globulin Ratio 0.7 (0.9-2); Albumin Level 2.4 gm/dl (3.4-5.0); BUN Creatinine Ratio 30.4 (10-20); Bilirubin,Total 0.5 mg/dl (0.2-1.0); Creatinine Clr Calc Pharmacy 105.2 ml/min; Est GFR (African American) 114.8 ml/min; Est GFR (Non-African American) 99.1 ml/min; Globulin 3.4 gm/dl (2.5-4.0); Potassium 4.1 mmol/L (3.5-5.1); Total Protein 5.8 gm/dl (6.0-8.3)
[2022-01-26 09:08] LABS: Magnesium 1.9 mg/dl (1.7-2.4)
[2022-01-26] MEDS: POLYETHYLENE (MIRALAX) 17 GM PACK PO SCH (09:32)
[2022-01-26] MEDS: ACYCLOVIR 400 MG TAB PO SCH ×2 (09:33→21:32)
[2022-01-26] MEDS: allopurinoL 300 MG TAB PO SCH (09:34)
[2022-01-26] MEDS: ASCORBIC ACID 500 MG TAB PO SCH ×2 (09:34→21:37)
[2022-01-26] MEDS: METOPROLOL SUCC 50MG EXT REL TAB PO SCH (09:35)
[2022-01-26] MEDS: CYANOCOBALAMIN (B-12) 500 MCG TABLET PO SCH (09:35)
[2022-01-26] MEDS: VORICONAZOLE 200 MG TABLET PO SCH ×2 (09:35→21:32)
[2022-01-26] MEDS: SENNA 8.6 MG TAB PO SCH (09:35)
[2022-01-26] MEDS: ACETAMINOPHEN 500 MG TAB PO PRN (14:18)
[2022-01-26] MEDS ORDERED: levoFLOXacin 500 MG TAB PO STA (15:46)
[2022-01-26] MEDS ORDERED: HYDROCODONE/ACETAMOPHEN 5/325MG TAB PO PRN (16:11)
--- NOTE | 2022-01-26 16:48 | Infectious Disease Progress Nt ---
Date of Service January 26, 2022 Assessment & Plan (1) Febrile neutropenia: (2) Pancytopenia: (3) Severe thrombocytopenia: (4) Bacteremia: (5) Transaminitis: (6) Rhabdomyolysis: (7) Pulmonary nodules: (8) AML (acute myeloblastic leukemia): Plan 76 yo M with h/o recently diagnosed AML in 11/2021 s/p cycle 2 with decitabine and venetoclax, on ppx acyclovir, voriconazole and levofloxacin, CAD s/p CABG, recent hospitalization for pancytopenia, admitted to [facility] on 01/21/2022 with intermittent fevers, lower extremity weakness and progressively worsening fatigue. ID has been consulted for neutropenic fevers. PROBLEM LIST 1. Profound Neutropenia with Pancytopenia 2. Fevers, improved 3. MSSE positive blood cultures, No port placement. No hardware. 4. Pulmonary nodules 5. Transaminitis/Rhabdomyolysis 6. AML on chemotherapy On admission, initial VSS but he has become febrile since. Labs notable for profound neutropenia,hemoglobin of 7.0, hematocrit of 19 and platelet count 11,000. Also noted was elevated creatinine kinase of 3491. Troponins elevated. 01/21 Blood cultures 4/4 bottles CoNS (2 separate peripheral sites, oxacillin sensitive). 10/ Blood cultures in lab. CT Chest Diffuse bilateral centrilobular micronodules are similar in appearance to the 11/22/2021 , radiology read: infectious or inflammatory pneumonitis. Stable 6mm nodule in RUL. Diffuse LAD. Cervical, Thoracic, lumbar spine CT negative for acute findings. CT head no acute findings. Patient was started on Vancomycin, Cefepime. TTE official read pending. Exam notable for only peripheral IVs, no port or central lines. No rash, thrush or mucositis. Positive buttock lesions. Discussion: Patient with profound neutropenia and sudden onset fevers. He is growing MSSE in his blood. Typically I would suspect this to be a contaminant especially without hardware or central line placement. It is difficult to assume this the case in setting of neutropenia. His buttock lesion may have caused him to be transiently bacteremic. He also grew CoNS in 4/4 bottles. Imaging is also concerning for pulmonary lesions that have not changed for >2 months. He is not hypoxic and has no pulmonary complaints. He is on Voriconazole and Levaquin ppx. Finally his buttock area may be the source of infection and he may have become bacteremic CoNS from his skin lesion. Recommend: -F/U repeat blood cultures, NGTD -Follow LFTs/CPK, overall improved -Repeat cultures are negative, can narrow to Cefazolin 2G IV TID, anticipate treatment x 2 weeks and repeating blood cultures 3-5 days after completion of antibiotics -Weekly CBC with diff, CMP while on IV abx -Would resume home dose of levofloxacin -HSV swab of buttock lesion (ordered) -C/W Neutropenic precautions, Voriconazole/Acyclovir ppx -Repeat CT Chest in 1 month to follow findngs likely c/w AML. Discharge abx can be Cefazolin 6G/continous infusion (will need PICC in this case) or Cefazolin 2G IV TID through midline. I would prefer the latter based on his profoundly low counts and risk for infection. ID will follow with you closely. Amairani Hunt MD [facility], [facility] 30min spent charting and documenting care for this patient. Admission and Anticipated Discharge Date Admission Date: January 21, 2022 Subjective Subsequent visit was provided via telemedicine using two-way real-time interactive telecommunication between the patient and the telemedicine provider. For the duration of the visit, the provider was performing the assessment from a different facility than the patient. This includesuse of bluetooth stethoscope forauscultationperformed by the telepresenter that the telemedicine provider can hear if described in the physical exam. Quality Assurance Representative contact information: Please call [facility] Call Center . (Phone Number For Physician Use Only) After establishing a telemedicine visit, patient was: Patient was verified with two unique identifiers, Patient/authorized rep acknowledged consent and understanding and Gave permission to continue telehealth session Subsequent Time Spent w Inpatient: 35 minutes Patient feeling better today. He has no complaints. No fevers/chills. No diarrhea. No rash. Physical Exam Respiratory: normal respiratory effort, lungs clear to auscultation Cardiovascular: RRR, no murmur, no edema Skin: no rashes, warm and dry Psychiatric: A+Ox3, euthymic affect Results & Data ([facility]) Vital Signs (Past 12 Hours) Vital Signs Temp Pulse Pulse Resp BP Pulse Ox O2 Del Method 01/26/22 15:21 38 C H 105 H 20 115/75 94 Room Air 01/26/22 11:29 37.4 C 109 H 20 112/73 96 Room Air 01/26/22 08:10 37.6 C H 106 H 20 134/82 95 Room Air 01/26/22 07:34 102 H 01/26/22 06:33 37.5 C Laboratory Results Laboratory Tests 01/25/22 01/26/22 01/26/22 07:09 05:53 05:53 WBC 0.20 L* Hct 22.3 L Plt Count 21 L* D Sodium 133 L Creatinine 0.56 L AST 85 H 95 H ALT 87 H 95 H Alkaline Phosphatase 130 H 138 H Total Creatine Kinase [address] [place] [address] / Director: Dewayne Buchanan M.D. Clinical Laboratory Report Name: ELIAZAR JOYCE Acct: [id number] Status: ADM [place] : 1945 [facility] Date: 01/21/22 Age: 76 Sex: M Dis Date: Loc: [address]/Bed: [facility] Spec: [id number] Collected: 01/23/22 Received: 01/23/[address]: Denice Patel MD Copy To: Flaco Estrada M.D. Source: Blood OV Order: Ordered: Blood Culture Comments: Comment Default is separate sites, same time Procedure Result Verified Site Blood Culture Aerobic Preliminary 01/25/22 No growth in Aerobic bottle after 48 hours. Blood Culture Anaerobic Preliminary 01/25/22 No growth in Anaerobic bottle after 48 hours. Spec: [id number] Collected: 01/21/22 Received: 01/21/[address]: Flaco Estrada M.D. Source: Blood OV Order: Ordered: Blood Culture Comments: Comment Default is separate sites, same time Blood culture drawn venously from Left Arm. Procedure Result Verified Site Blood Culture Aerobic Final 01/24/22 Organism 1 Coag neg staph not lugdunensis Sens No Sensitivities to Follow Please see culture number [id number] for sensitivities. Phoned positive Blood Culture Gram Stain report to BABITA HERRERA on 01/22/22 at 1604 [place] [id number]. [place] [id number]. Blood Culture Anaerobic Final 01/24/22 Organism 1 Coag neg staph not lugdunensis Sens No Sensitivities to Follow Please see culture number [id number] for sensitivities. [address], [place] [address] / Director: Dewayne Buchanan M.D. Clinical Laboratory Report Name: ELIAZAR JOYCE Acct: [id number] Status: ADM [place] : 1945 [facility] Date: 01/21/22 Age: 76 Sex: M Dis Date: Loc: [address]/Bed: [facility] Spec: [id number] Collected: 01/21/22 Received: 01/21/[address]: Flaco Estrada M.D. Source: Blood OV Order: Ordered: Blood Culture Comments: Comment Default is separate sites, same time Procedure Result Verified Site Blood Culture Aerobic Final 01/24/22 Organism 1 Coag neg staph not lugdunensis Sens Sensitivities to Follow CNSnl RX M.I.C. --- --------- Clindamycin S <=0.5 Daptomycin S <=0.5 Erythromycin S <=0.5 Oxacillin S <=0.25 Tetracycline S <=4 Trimeth/Sulfa R > Vancomycin S 2 S = SENSITIVE I = INTERMEDIATE R = RESISTANT Blood Culture Anaerobic Final 01/24/22-1034 Organism 1 Coag neg staph not lugdunensis Sens Sensitivities to Follow Blood Culture PCR Panel If viewing in EMR, results available under LAB Serology tab. Phoned positive Blood Culture Gram Stain report to ISAIAH PETTIT on 01/22/22 at 1020 [place] [id number]. [place] [id number]. Medications Administered Medications Cefazolin Sodium (Ancef 2000mg) 2,000 mg in 15 mls @ 3.75 mls/min IV Q8H CHIKI Stop: 02/09/22 21:59
[2022-01-26 19:19] LABS: Influenza A virus by PCR Negative (Neg); Influenza B virus by PCR Negative (Neg); RSV by PCR Negative (Neg); SARS CoV2 RNA(COVID-19) InHosp NEGATIVE (Negative)
--- NOTE | 2022-01-26 19:41 | Hospitalist Progress Note ---
Date of Service January 26, 2022 Assessment & Plan (1) Pancytopenia: Plan: Patient admitted with antineoplastic induced pancytopenia and generalized weakness. Weakness secondary to symptomatic anemia but also secondary to bacteremia. With hemoglobin 7.0 on admission, platelets 11, and WBC count severely low at 0.1 with neutropenia. With fevers at home to 100 for a couple of weeks and then high spiking fevers up until 01/23/22. High fevers likely from [employer] bacteremia. s/p 1 unit PRBCs on 01/21 s/p 1 unit of platelets - transfusion stopped just before completion due to 20 point drop in blood pressure - no evidence of transfusion reaction however he then tolerated full platelet transfusion on 01/23 s/p another unit of PRBCs & apheresed platelets on 01/25 platelets and H/H acceptable today Continue neutropenic precautions Continue daily CBC No role for Neupogen in the setting of AML Continue prophylactic acyclovir, voriconazole, resume prophylactic levofloxacin today as we are stopping his cefepime HSV culture from sacral rash sent/pending (2) Bacteremia: Plan: Bacteremia/septicemia, POA 2nd to coag neg staph source - lower sacral region ulceration? repeat blood cultures 01/22 and 01/23 NEGATIVE does not have a port or hardware echo negative for SBE appreciate telehealth ID consult & recs I did speak with ID by phone today; recs -- stop IV cefepime change to IV ancef 2gm q8h resume levaquin 500mg daily for prophylaxis (3) Sepsis: Plan: As above improved clinically with repeat blood cx's negative to date (4) Symptomatic anemia: Plan: s/p 2 units of PRBCs since admission H/H acceptable today B12 level in November was <200 -- remains on B12 supplementation Folate wnl Ferritin >5000 in November c/w acute phase reactant (5) Rhabdomyolysis: Plan: Patient's CK was >3000 upon admission. Nearly normal today. stop CPK checks at this point cause of rhabdo... statin induced? paraneoplastic from AML? 2nd to chemo? plan -- cont to hold statin. no further IV fluids needed (6) Pulmonary nodules: Plan: Noted to have multiple tiny nodules on thoracic spine CT Checked chest CT which also shows nodules and mediastinal and hilar lymphadenopathy-noted to be present on previous CT chest in 11/2021 Covering for pneumonia with cefepime and vancomycin Consult pulmonology appreciated-recommends that since there is stability of the nodules and lymphadenopathy since CT scan from November, likely not related to chemotherapy, but is at risk for opportunistic infections. Pulmonary recommends repeat CT chest in 8 weeks to reassess (7) Hypokalemia: Plan: replaced resolved (8) AML (acute myeloblastic leukemia): Plan: Holding venetoclax due to ongoing infection and low blood counts Appreciate oncology consultation and recs Daily CBC Neutropenic precautions Transfusional support as needed Targets - keep platelets >15; keep Hb >7.5 Last decitabine was ~10 days ago (9) Sacral wound: Plan: Appreciate wound care nurse consult source of bacteremia? ID recommends HSV swab to this area to be completed swab sent & pending (10) Transaminitis: Plan: Secondary to rhabdomyolysis? Secondary to liver involvement from AML? Statin induced? other? Cont to trend LFTs - but they are improving (11) Elevated troponin: Plan: Likely demand ischemia secondary to acute infection and symptomatic anemia Echocardiogram -- preserved EF, neg wall motion abnormalities, mod-severe No ischemic symptoms (12) Dyslipidemia: Plan: hold statin due to rhabdo (13) Hypertension: Plan: Amlodipine stopped Remains on metoprolol succinate 100mg daily BPs acceptable (14) Benign enlargement of prostate: Plan: no LUTS at this time (15) Arteriosclerotic coronary artery disease: Plan: With a history of CABG previously Discontinued aspirin when started chemotherapy, discontinuing statin as above Continue Toprol-XL No ischemic symptoms even in face of anemia, etc (16) Aortic stenosis: Plan: Moderate-severe aortic stenosis no symptoms no CHF Monitor (17) Mood disorder: Plan: patient admits to feeling down but denies overt depression with that said he was tearful throughout the visit watch carefully for development of full-blown depression - low threshold to begin SSRI (18) Hyponatremia: Plan: repeat BMP am for stability Plan DVT prophylaxis - SCDs only PT, OT evals appreciated updated at bedside dispo - home? rehab? Admission and Anticipated Discharge Date Admission Date: January 21, 2022 Subjective no significant changes overnight feels about the same tired some chills/fever this afternoon appetite fair did have normal BM earlier today weak when he tries to get up tele overnight wnl at bedside Review of Systems 2 Review of Systems: gen - fevers/chills/weak cv - no cp, no orthopnea pulm - no cough or dyspnea GI - no N/V Physical Exam Physical Exam: gen - nontoxic, looks tired, wiping his forehead due to fever mouth - no thrush, no mucositis neck - no JVD heart - RRR, s1 s2, 2/6 holosystolic murmur RUSB/apex lungs - CTA b/l, no rales or wheeze abd - soft NT ND BS+ ext - no edema, pulses 2+ b/l psych - a/o x 3 Results & Data Results & Data ([facility]) Vital Signs (Past 12 Hours) Vital Signs Temp Pulse Pulse Resp BP Pulse Ox O2 Del Method 01/26/22 16:00 104 H 01/26/22 15:21 38 C H 105 H 20 115/75 94 Room Air 01/26/22 11:29 37.4 C 109 H 20 112/73 96 Room Air 01/26/22 08:10 37.6 C H 106 H 20 134/82 95 Room Air Laboratory Results Laboratory Results - last 24 hr 01/26/22 01/26/22 01/26/22 05:53 05:53 17:55 WBC 0.20 L* RBC 2.71 L Hgb 8.1 L Hct 22.3 L MCV 82.3 MCH 29.9 MCHC 36.3 H RDW Std Deviation 39.8 RDW Coeff of Marty 13.2 Plt Count 21 L* D MPV 9.4 Immature Gran % (Auto) Cancelled Neut % (Auto) Cancelled Lymph % (Auto) Cancelled [place] % (Auto) Cancelled Eos % (Auto) Cancelled Baso % (Auto) Cancelled Neut # (Auto) Cancelled Lymph # (Auto) Cancelled [place] # (Auto) Cancelled Eos # (Auto) Cancelled Baso # (Auto) Cancelled Immature Gran # (Auto) Cancelled Neutrophils % (Manual) Cancelled Band Neutrophils % Cancelled Lymphocytes % (Manual) Cancelled Prolymphocyte % Cancelled Reactive Lymphs % (Man) Cancelled Monocytes % (Manual) Cancelled Eosinophils % (Manual) Cancelled Basophils % (Manual) Cancelled Metamyelocytes % (Man) Cancelled Myelocytes % (Man) Cancelled Promyelocytes % (Man) Cancelled Blast Cells % (Manual) Cancelled Plasma Cell % (Manual) Cancelled Other Cells % Cancelled Nucleated RBC % Cancelled Neutrophils # (Manual) Cancelled Band Neutrophils # Cancelled Total Absolute Neuts Cancelled Lymphocytes # (Manual) Cancelled Prolymphocyte # Cancelled Reactive Lymphs # Cancelled Total Abs Lymphocytes Cancelled Monocytes # (Manual) Cancelled Eosinophils # (Manual) Cancelled Basophils # (Manual) Cancelled Metamyelocytes # (Man) Cancelled Myelocytes # (Manual) Cancelled Promyelocytes # (Man) Cancelled Blast Cells # (Man) Cancelled Plasma Cell # (Manual) Cancelled Other Cells # Cancelled Nucleated RBCs # (Man) Cancelled Hypersegmented Neuts Cancelled Hyposegmented Neuts Cancelled Hypogranular Neuts Cancelled Large Granular Lymphs Cancelled # Lrg Granular Lymphs Cancelled Hairy Cells Cancelled Smudge Cells Cancelled Toxic Granulation Cancelled Toxic Vacuolation Cancelled Dohle Bodies Cancelled Alyssa Rods Cancelled Hypogranular Platelets Cancelled Clumped Platelets Cancelled Giant Platelets Cancelled Platelet Satelliting Cancelled RBC Morphology Cancelled Polychromasia Cancelled Hypochromasia Cancelled Poikilocytosis Cancelled Basophilic Stippling Cancelled Anisocytosis Cancelled Microcytosis Cancelled Macrocytosis Cancelled Spherocytes Cancelled Pappenheimer Bodies Cancelled Sickle Cells Cancelled Target Cells Cancelled Tear Drop Cells Cancelled Ovalocytes Cancelled Stomatocytes Cancelled [place] Bodies Cancelled Echinocytes Cancelled Acanthocytes (Spur) Cancelled Rouleaux Cancelled RBC Agglutinates Cancelled Schistocytes Cancelled Sezary Cell Cancelled Sodium 133 L Potassium 4.1 D Chloride 103 Carbon Dioxide 24 Anion Gap 6 BUN 17 Creatinine 0.56 L Est Cr Clr Drug Dosing 105.2 Est GFR ( Amer) 114.8 Est GFR (Non-Af Amer) 99.1 BUN/Creatinine Ratio 30.4 H Glucose 96 Calcium 8.0 L Magnesium 1.9 Total Bilirubin 0.5 AST 95 H ALT 95 H Alkaline Phosphatase 138 H Total Creatine Kinase 409 H Total Protein 5.8 L Albumin 2.4 L Globulin 3.4 Albumin/Globulin Ratio 0.7 L SARS-CoV-2 (PCR) NEGATIVE Influenza Type A (PCR) Negative Influenza Type B (PCR) Negative RSV (RT-PCR) Negative Blood Parasites ID Cancelled Diagnostic Findings blood cx's 01/22 and 01/23 negative PG Care Time/CCT Total # of Minutes Spent Total Time Spent with Patient: Total time spent is greater than 50% in coordination of care (as documented) at patient's floor/unit and/or counseling patient: Coding Level of Care Code 03614 Subseq Hosp Care Lvl 3 Diagnoses Pancytopenia D61.818 Bacteremia R78.81 Sepsis A41.9 Symptomatic anemia D64.9 Rhabdomyolysis M62.82 Pulmonary nodules R91.8 Hypokalemia E87.6 AML (acute myeloblastic leukemia) C92.00 Sacral wound S31.000A Transaminitis R74.01 Elevated troponin R77.8 Dyslipidemia E78.5 Hypertension I10 Benign enlargement of prostate N40.0 Arteriosclerotic coronary artery disease I25.10 Aortic stenosis I35.0 Mood disorder F39 Hyponatremia E87.1
[2022-01-26] MEDS: ACETAMINOPHEN 500 MG TAB PO SCH (21:31)
[2022-01-26] MEDS: ceFAZolin 2000MG 2,000 MG/15 ML SYR IV SCH (21:34)
[2022-01-27] MEDS: ceFAZolin 2000MG 2,000 MG/15 ML SYR IV SCH ×3 (05:23→22:32)
[2022-01-27 06:58] LABS: Albumin Globulin Ratio 0.7 (0.9-2); Albumin Level 2.5 gm/dl (3.4-5.0); Bilirubin,Total 0.4 mg/dl (0.2-1.0); Calcium 8.1 mg/dl (8.5-10.1); Creatinine Clr Calc Pharmacy 98.2 ml/min; Est GFR (African American) 111.6 ml/min; Est GFR (Non-African American) 96.3 ml/min; Globulin 3.6 gm/dl (2.5-4.0); Potassium 3.8 mmol/L (3.5-5.1); Total Protein 6.1 gm/dl (6.0-8.3)
[2022-01-27 07:01] LABS: Hematocrit (blood only) 23.8 % (40.1-51.0); Hemoglobin 8.5 g/dl (14.0-18.0); Mean Corpuscular Hemoglobin 29.9 pg (25.0-34.0); Mean Corpuscular Hgb Conc 35.7 g/dL (32.0-36.0); Mean Corpuscular Volume 83.8 fL (80.0-100.0); Platelet Count 14 K/uL (130-400); RDW Coefficient of Variation 12.9 % (11.5-14.5); RDW Standard Deviation 39.7 fL (36.4-46.3); Red Blood Count 2.84 M/uL (4.63-6.08); White Blood Count 0.22 K/ul (4.8-10.8)
[2022-01-27] MEDS: allopurinoL 300 MG TAB PO SCH (08:34)
[2022-01-27] MEDS: ACETAMINOPHEN 500 MG TAB PO SCH ×3 (08:34→20:25)
[2022-01-27] MEDS: ASCORBIC ACID 500 MG TAB PO SCH ×2 (08:34→20:26)
[2022-01-27] MEDS: CYANOCOBALAMIN (B-12) 500 MCG TABLET PO SCH (08:34)
[2022-01-27] MEDS: ACYCLOVIR 400 MG TAB PO SCH ×2 (08:34→20:26)
[2022-01-27] MEDS: POLYETHYLENE (MIRALAX) 17 GM PACK PO SCH (08:35)
[2022-01-27] MEDS: SENNA 8.6 MG TAB PO SCH (08:35)
[2022-01-27] MEDS: VORICONAZOLE 200 MG TABLET PO SCH ×2 (08:35→20:26)
[2022-01-27] MEDS: METOPROLOL SUCC 50MG EXT REL TAB PO SCH (08:35)
[2022-01-27] MEDS ORDERED: ACETAMINOPHEN 325 MG TAB PO ONE (09:59)
[2022-01-27] MEDS: levoFLOXacin 500 MG TAB PO SCH (10:39)
--- NOTE | 2022-01-27 16:08 | Infectious Disease Progress Nt ---
Date of Service January 27, 2022 Assessment & Plan (1) Febrile neutropenia: (2) Pancytopenia: (3) Severe thrombocytopenia: (4) Bacteremia: (5) Transaminitis: (6) Rhabdomyolysis: (7) Pulmonary nodules: (8) AML (acute myeloblastic leukemia): Plan 76 yo M with h/o recently diagnosed AML in 11/2021 s/p cycle 2 with decitabine and venetoclax, on ppx acyclovir, voriconazole and levofloxacin, CAD s/p CABG, recent hospitalization for pancytopenia, admitted to [facility] on 01/21/2022 with intermittent fevers, lower extremity weakness and progressively worsening fatigue. ID has been consulted for neutropenic fevers. PROBLEM LIST 1. Profound Neutropenia with Pancytopenia 2. Fevers, improved 3. MSSE positive blood cultures, No port placement. No hardware. 4. Pulmonary nodules, unchanged since 11/16/2021 5. Transaminitis/Rhabdomyolysis 6. AML on chemotherapy On admission, initial VSS but he has become febrile since. Labs notable for profound neutropenia,hemoglobin of 7.0, hematocrit of 19 and platelet count 11,000. Also noted was elevated creatinine kinase of 3491. Troponins elevated. 10 Blood cultures 4/4 bottles CoNS (2 separate peripheral sites, oxacillin sensitive). 10/ Blood cultures are no growth CT Chest Diffuse bilateral centrilobular micronodules are similar in appearance to the 11/22/2021 , radiology read: infectious or inflammatory pneumonitis. Stable 6mm nodule in RUL. Diffuse LAD. Cervical, Thoracic, lumbar spine CT negative for acute findings. CT head no acute findings. Patient was started on Vancomycin, Cefepime. TTE official read pending. Exam notable for only peripheral IVs, no port or central lines. No rash, thrush or mucositis. Positive buttock lesions. Discussion: Patient with profound neutropenia and sudden onset fevers. He is growing MSSE in his blood. Typically I would suspect this to be a contaminant especially without hardware or central line placement. It is difficult to assume this the case in setting of neutropenia. His buttock lesion may have caused him to be transiently bacteremic. He also grew CoNS in 4/4 bottles. Imaging is also concerning for pulmonary lesions that have not changed for >2 months. He is not hypoxic and has no pulmonary complaints. He is on Voriconazole and Levaquin ppx. Finally his buttock area may be the source of infection and he may have become bacteremic CoNS from his skin lesion. Recommend: -F/U repeat blood cultures, NGTD -Follow LFTs/CPK, overall improved -Repeat cultures are negative, he has been narrowed Cefazolin 2G IV TID, anticipate treatment x 2 weeks through 02/05/22 and repeating blood cultures 3-5 days after completion of antibiotics -Weekly CBC with diff, CMP while on IV abx -Home dose of Levaquin resumed, ECG showed prolonged QTc but normal prior, I would recommend c/w Levaquin but repeat ECG to ensure no QTc prolongation -HSV swab of buttock lesion ordered and pending -C/W Neutropenic precautions, Voriconazole/Acyclovir ppx -Repeat CT Chest in 1 month to follow findngs likely c/w AML. Discharge abx can be Cefazolin 6G/continous infusion (will need PICC in this case) or Cefazolin 2G IV TID through midline. I would prefer the latter based on his profoundly low counts and risk for infection. Amairani Hunt MD [facility], [facility] 30min spent charting and documenting care for this patient. Admission and Anticipated Discharge Date Admission Date: January 21, 2022 Subjective This patient recommendation is based on a telemedicine consult request which was completed asynchronously through chart review and information provided by the primary physician. The patient was not seen or examined today. The evaluation is consultative in nature and all patient care and treatment decisions can either be accepted or rejected by the patient's primary hospital-based treating physician using their own independent medical judgment for their patient. 24 hours: MONA VSS, afebrile ABX narrowed to Cefazolin, Levaquin started, Cefepime dcd Econsultation Review of System N/A d/t econsultation Physical Exam Physical Exam: N/A d/t econsultation Results & Data ([facility]) Vital Signs (Past 12 Hours) Vital Signs Temp Pulse Pulse Resp BP BP BP 01/27/22 15:52 37.3 C 111 H 20 129/73 01/27/22 13:00 37.3 C 108 H 20 01/27/22 12:44 37.3 C 109 H 20 125/78 01/27/22 11:44 37.4 C 111 H 20 128/80 01/27/22 11:14 37.6 C H 112 H 20 123/77 01/27/22 10:59 37.2 C 102 H 20 119/76 01/27/22 08:00 108 H 01/27/22 10:43 37.1 C 112 H 18 117/75 01/27/22 07:54 37.0 C 110 H 18 123/77 Pulse Ox O2 Del Method 01/27/22 15:52 96 Room Air 01/27/22 13:00 96 01/27/22 12:44 96 01/27/22 11:44 97 01/27/22 11:14 95 01/27/22 10:59 95 01/27/22 08:00 01/27/22 10:43 96 01/27/22 07:54 93 Room Air Laboratory Results Laboratory Tests 01/27/22 01/27/22 05:53 05:53 WBC 0.22 L* Hgb 8.5 L Hct 23.8 L Plt Count 14 L* Sodium 132 L Creatinine 0.60 AST 67 H ALT 81 H Alkaline Phosphatase 134 H pec: [id number] Collected: 01/23/22 Received: 01/23/[address]: Denice Patel MD Copy To: Flaco Estrada M.D. Source: Blood OV Order: Ordered: Blood Culture Comments: Comment Default is separate sites, same time Procedure Result Verified Site Blood Culture Aerobic Preliminary 01/25/22 No growth in Aerobic bottle after 48 hours. Blood Culture Anaerobic Preliminary 01/25/22 No growth in Anaerobic bottle after 48 hours. Medications Administered Medications Cefazolin Sodium (Ancef 2000mg) 2,000 mg in 15 mls @ 3.75 mls/min IV Q8H CHIKI Stop: 02/09/22 21:59 Acyclovir (Acyclovir 400 Mg Tab) 400 mg PO BID CHIKI Stop: 02/20/22 12:59 Voriconazole (Voriconazole 200 Mg Tablet) 200 mg PO BID CHIKI Stop: 02/20/22 20:59 Levofloxacin (Levofloxacin 500 Mg Tab) 500 mg PO DAILY@1100 CHIKI Stop: 02/26/22 10:59
--- NOTE | 2022-01-27 16:34 | CT Scan Report ---
HEAD CT NONCONTRAST CT DOSE: 994.86 mGycm HISTORY: headaches, severe thrombocytopenia TECHNIQUE: Multiaxial CT images of the head were performed without the use of intravenous contrast. A utomated exposure control was utilized for this study. A dose lowering technique was utilized adheri ng to the principles of ALARA. Comparison: Head CT 01/21/2022. Findings: Moderate mucosal thickening within the right maxillary sinus with partial opacification of the right ethmoid air cells. This has progressed in the interval. No fluid levels within the paranasa l sinuses. The mastoid air cells are clear. The calvarium and skull base are intact. There is no mass , hematoma, midline shift, acute infarct. White matter hypodensity is nonspecific but suggestive of m icrovascular ischemic change. The ventricles and sulci demonstrate mild age-related involutional arora ges. Impression: 1. No acute intracranial abnormality. 2. Right paranasal sinus disease which has slightly progressed in the interval ACT 112: Negative or not required by law. Electronically signed by: Zafar Anne M.D. 01/27/2022 4:32 PM
--- NOTE | 2022-01-27 19:23 | Hospitalist Progress Note ---
Date of Service January 27, 2022 Assessment & Plan (1) Pancytopenia: Plan: Patient admitted with antineoplastic induced pancytopenia and generalized weakness. Weakness secondary to symptomatic anemia but also secondary to bacteremia. With hemoglobin 7.0 on admission, platelets 11, and WBC count severely low at 0.1 with neutropenia. With fevers at home to 100 for a couple of weeks and then high spiking fevers up until 01/23/22. High fevers likely from [employer] bacteremia. s/p 1 unit PRBCs on 01/21 s/p 1 unit of platelets - transfusion stopped just before completion due to 20 point drop in blood pressure - no evidence of transfusion reaction however he then tolerated full platelet transfusion on 01/23 s/p another unit of PRBCs & apheresed platelets on 01/25; will order another unit of platelets for today as platelet count is <15 Continue neutropenic precautions Continue daily CBC No role for Neupogen in the setting of AML Continue prophylactic acyclovir, voriconazole, and levofloxacin HSV culture from sacral rash sent/pending (2) Bacteremia: Plan: Bacteremia/septicemia, POA 2nd to coag neg staph source - likely the lower sacral region ulceration repeat blood cultures 01/22 and 01/23 NEGATIVE does not have a port or hardware echo negative for SBE appreciate telehealth ID consult & recs cont IV ancef 2gm q8h with stop date of 02/05/22 could also use ancef 6gm continuous IV infusion at d/c as well (3) Headache: Plan: has prior h/o migraine headache years ago had headache yesterday with mild photophobia headache now resolved, but complaining of jaw pain, ongoing photophobia, etc obtained head CT today in light of very low platelets - NO ICH or acute CVA cont symptomatic control (4) Sepsis: Plan: As above improved clinically with repeat blood cx's negative to date (5) Symptomatic anemia: Plan: s/p 2 units of PRBCs since admission H/H acceptable today B12 level in November was <200 -- remains on B12 supplementation Folate wnl Ferritin >5000 in November c/w acute phase reactant (6) Rhabdomyolysis: Plan: Patient's CK was >3000 upon admission. Last check was nearly normal. cause of rhabdo... statin induced? paraneoplastic from AML? 2nd to chemo? plan -- cont to hold statin. no further IV fluids needed (7) Pulmonary nodules: Plan: Noted to have multiple tiny nodules on thoracic spine CT Checked chest CT which also shows nodules and mediastinal and hilar lymphadenopathy-noted to be present on previous CT chest in 11/2021 Covering for pneumonia with cefepime and vancomycin Consult pulmonology appreciated-recommends that since there is stability of the nodules and lymphadenopathy since CT scan from November, likely not related to chemotherapy, but is at risk for opportunistic infections. Pulmonary recommends repeat CT chest in 8 weeks to reassess (8) Hypokalemia: Plan: replaced resolved (9) AML (acute myeloblastic leukemia): Plan: Holding venetoclax due to ongoing infection and low blood counts Appreciate oncology consultation and recs Daily CBC Neutropenic precautions Transfusional support as needed Targets - keep platelets >15; keep Hb >7.5 Last decitabine was ~[address] Burgos and I spoke today - current pancytopenia/counts would not preclude him from d/c from the hospital he will have blood work M/W/F upon discharge every week with outpatient t ransfusional support (10) Sacral wound: Plan: Appreciate wound care nurse consult source of bacteremia? ID recommended HSV swab to this area to be completed swab sent & pending (11) Transaminitis: Plan: Secondary to rhabdomyolysis? Secondary to liver involvement from AML? Statin induced? other? regardless of etiology they cont to improve repeat AM (12) Elevated troponin: Plan: Likely demand ischemia secondary to acute infection and symptomatic anemia Echocardiogram -- preserved EF, neg wall motion abnormalities, mod-severe No ischemic symptoms (13) Dyslipidemia: Plan: hold statin due to rhabdo would not resume (14) Hypertension: Plan: Amlodipine stopped Remains on metoprolol succinate 100mg daily BPs acceptable (15) Benign enlargement of prostate: Plan: no LUTS at this time (16) Arteriosclerotic coronary artery disease: Plan: With a history of CABG previously Discontinued aspirin when started chemotherapy, discontinuing statin as above Continue Toprol-XL No ischemic symptoms even in face of anemia, etc (17) Aortic stenosis: Plan: Moderate-severe aortic stenosis no symptoms no CHF Monitor (18) Mood disorder: Plan: patient admits to feeling down but denies overt depression with that said he was tearful throughout the visit watch carefully for development of full-blown depression - low threshold to begin SSRI (19) Hyponatremia: Plan: ongoing SIADH? check urine osm and urine Na BMP am Plan DVT prophylaxis - SCDs only PT, OT evals appreciated updated at bedside dispo - home? rehab? I discussed his care with Charlotte from case management who will d/w patient his options care d/w Dr Burgos Admission and Anticipated Discharge Date Admission Date: January 21, 2022 Subjective patient's headache resolved he c/o ongoing photophobia - was wearing sunglasses in the room - but states he has this outside the hospital, too he denies neck pain he has b/l jaw pain - this, too, was present at home he has occasional pain that radiates from the right jaw into the right head/voodoo denies ear pain denies mouth pain no cough, no dyspnea appetite fair worked with PT today - still wants to go home; does not want rehab we discussed home with IV abx - they seemed overwhelmed by this prospect tele overnight - sinus tach, rates about 100-105 Review of Systems Review of Systems: gen - ongoing low-grade fevers; fatigue cv - no cp, no orthopnea pulm - no cough or dyspnea Gi - no nausea/emesis/diarrhea/pain Physical Exam Physical Exam: gen - nontoxic, looks tired like previous visits head - no pain to palpation over maxillary or frontal sinuses eyes - PERRL; no photophobia when I shine a flashlight in his eyes mouth - no thrush, no mucositis jaw - b/l clunking with opening and close the jaw over b/l TMJs neck - no JVD heart - RRR, s1 s2, 2/6 holosystolic murmur RUSB/apex lungs - CTA b/l, no rales or wheeze abd - soft NT ND BS+ ext - no edema, pulses 2+ b/l psych - a/o x 3, restricted affect skin - right sacral/upper buttock skin sore - 2mm in size, about 1-2mm deep, minimal induration; no cellulitis; no odor; no drainage Results & Data Results & Data ([facility]) Vital Signs (Past 12 Hours) Vital Signs Temp Pulse Pulse Resp BP BP BP 01/27/22 16:00 108 H 01/27/22 15:52 37.3 C 111 H 20 129/73 01/27/22 13:00 37.3 C 108 H 20 01/27/22 12:44 37.3 C 109 H 20 125/78 01/27/22 11:44 37.4 C 111 H 20 128/80 01/27/22 11:14 37.6 C H 112 H 20 123/77 01/27/22 10:59 37.2 C 102 H 20 119/76 01/27/22 08:00 108 H 01/27/22 10:43 37.1 C 112 H 18 117/75 01/27/22 07:54 37.0 C 110 H 18 123/77 Pulse Ox O2 Del Method 01/27/22 16:00 01/27/22 15:52 96 Room Air 01/27/22 13:00 96 01/27/22 12:44 96 01/27/22 11:44 97 01/27/22 11:14 95 01/27/22 10:59 95 01/27/22 08:00 01/27/22 10:43 96 01/27/22 07:54 93 Room Air Laboratory Results Laboratory Results - last 24 hr 01/21/22 01/25/22 01/25/22 10:32 08:40 09:00 WBC RBC Hgb Hct MCV MCH MCHC RDW Std Deviation RDW Coeff of Marty Plt Count MPV Immature Gran % (Auto) Neut % (Auto) Lymph % (Auto) [place] % (Auto) Eos % (Auto) Baso % (Auto) Neut # (Auto) Lymph # (Auto) [place] # (Auto) Eos # (Auto) Baso # (Auto) Immature Gran # (Auto) Neutrophils % (Manual) Band Neutrophils % Lymphocytes % (Manual) Prolymphocyte % Reactive Lymphs % (Man) Monocytes % (Manual) Eosinophils % (Manual) Basophils % (Manual) Metamyelocytes % (Man) Myelocytes % (Man) Promyelocytes % (Man) Blast Cells % (Manual) Plasma Cell % (Manual) Other Cells % Nucleated RBC % Neutrophils # (Manual) Band Neutrophils # Total Absolute Neuts Lymphocytes # (Manual) Prolymphocyte # Reactive Lymphs # Total Abs Lymphocytes Monocytes # (Manual) Eosinophils # (Manual) Basophils # (Manual) Metamyelocytes # (Man) Myelocytes # (Manual) Promyelocytes # (Man) Blast Cells # (Man) Plasma Cell # (Manual) Other Cells # Nucleated RBCs # (Man) Hypersegmented Neuts Hyposegmented Neuts Hypogranular Neuts Large Granular Lymphs # Lrg Granular Lymphs Hairy Cells Smudge Cells Toxic Granulation Toxic Vacuolation Dohle Bodies Alyssa Rods Hypogranular Platelets Clumped Platelets Giant Platelets Platelet Satelliting RBC Morphology Polychromasia Hypochromasia Poikilocytosis Basophilic Stippling Anisocytosis Microcytosis Macrocytosis Spherocytes Pappenheimer Bodies Sickle Cells Target Cells Tear Drop Cells Ovalocytes Stomatocytes [place] Bodies Echinocytes Acanthocytes (Spur) Rouleaux RBC Agglutinates Schistocytes Sezary Cell Sodium Potassium Chloride Carbon Dioxide Anion Gap BUN Creatinine Est Cr Clr Drug Dosing Est GFR ( Amer) Est GFR (Non-Af Amer) BUN/Creatinine Ratio Glucose Calcium Total Bilirubin AST ALT Alkaline Phosphatase Total Protein Albumin Globulin Albumin/Globulin Ratio Herpes Simplex Culture SEE NOTE Blood Parasites ID Blood Type A Positive Antibody Screen NEGATIVE Crossmatch See Detail See Detail 01/27/22 01/27/22 05:53 05:53 WBC 0.22 L* RBC 2.84 L Hgb 8.5 L Hct 23.8 L MCV 83.8 MCH 29.9 MCHC 35.7 RDW Std Deviation 39.7 RDW Coeff of Marty 12.9 Plt Count 14 L* MPV 9.0 L Immature Gran % (Auto) Cancelled Neut % (Auto) Cancelled Lymph % (Auto) Cancelled [place] % (Auto) Cancelled Eos % (Auto) Cancelled Baso % (Auto) Cancelled Neut # (Auto) Cancelled Lymph # (Auto) Cancelled [place] # (Auto) Cancelled Eos # (Auto) Cancelled Baso # (Auto) Cancelled Immature Gran # (Auto) Cancelled Neutrophils % (Manual) Cancelled Band Neutrophils % Cancelled Lymphocytes % (Manual) Cancelled Prolymphocyte % Cancelled Reactive Lymphs % (Man) Cancelled Monocytes % (Manual) Cancelled Eosinophils % (Manual) Cancelled Basophils % (Manual) Cancelled Metamyelocytes % (Man) Cancelled Myelocytes % (Man) Cancelled Promyelocytes % (Man) Cancelled Blast Cells % (Manual) Cancelled Plasma Cell % (Manual) Cancelled Other Cells % Cancelled Nucleated RBC % Cancelled Neutrophils # (Manual) Cancelled Band Neutrophils # Cancelled Total Absolute Neuts Cancelled Lymphocytes # (Manual) Cancelled Prolymphocyte # Cancelled Reactive Lymphs # Cancelled Total Abs Lymphocytes Cancelled Monocytes # (Manual) Cancelled Eosinophils # (Manual) Cancelled Basophils # (Manual) Cancelled Metamyelocytes # (Man) Cancelled Myelocytes # (Manual) Cancelled Promyelocytes # (Man) Cancelled Blast Cells # (Man) Cancelled Plasma Cell # (Manual) Cancelled Other Cells # Cancelled Nucleated RBCs # (Man) Cancelled Hypersegmented Neuts Cancelled Hyposegmented Neuts Cancelled Hypogranular Neuts Cancelled Large Granular Lymphs Cancelled # Lrg Granular Lymphs Cancelled Hairy Cells Cancelled Smudge Cells Cancelled Toxic Granulation Cancelled Toxic Vacuolation Cancelled Dohle Bodies Cancelled Alyssa Rods Cancelled Hypogranular Platelets Cancelled Clumped Platelets Cancelled Giant Platelets Cancelled Platelet Satelliting Cancelled RBC Morphology Cancelled Polychromasia Cancelled Hypochromasia Cancelled Poikilocytosis Cancelled Basophilic Stippling Cancelled Anisocytosis Cancelled Microcytosis Cancelled Macrocytosis Cancelled Spherocytes Cancelled Pappenheimer Bodies Cancelled Sickle Cells Cancelled Target Cells Cancelled Tear Drop Cells Cancelled Ovalocytes Cancelled Stomatocytes Cancelled [place] Bodies Cancelled Echinocytes Cancelled Acanthocytes (Spur) Cancelled Rouleaux Cancelled RBC Agglutinates Cancelled Schistocytes Cancelled Sezary Cell Cancelled Sodium 132 L Potassium 3.8 Chloride 100 Carbon Dioxide 26 Anion Gap 6 BUN 15 Creatinine 0.60 Est Cr Clr Drug Dosing 98.2 Est GFR ( Amer) 111.6 Est GFR (Non-Af Amer) 96.3 BUN/Creatinine Ratio 25.0 H Glucose 95 Calcium 8.1 L Total Bilirubin 0.4 AST 67 H ALT 81 H Alkaline Phosphatase 134 H Total Protein 6.1 Albumin 2.5 L Globulin 3.6 Albumin/Globulin Ratio 0.7 L Herpes Simplex Culture Blood Parasites ID Cancelled Blood Type Antibody Screen Crossmatch Diagnostic Findings blood cultures negative 01/22 and 01/23 PG Care Time/CCT Total # of Minutes Spent Total Time Spent with Patient: Total time spent is greater than 50% in coordination of care (as documented) at patient's floor/unit and/or counseling patient: Coding Level of Care Code 24232 Subseq Hosp Care Lvl 3 Diagnoses Pancytopenia D61.818 Bacteremia R78.81 Headache R51.9 Sepsis A41.9 Symptomatic anemia D64.9 Rhabdomyolysis M62.82 Pulmonary nodules R91.8 Hypokalemia E87.6 AML (acute myeloblastic leukemia) C92.00 Sacral wound S31.000A Transaminitis R74.01 Elevated troponin R77.8 Dyslipidemia E78.5 Hypertension I10 Benign enlargement of prostate N40.0 Arteriosclerotic coronary artery disease I25.10 Aortic stenosis I35.0 Mood disorder F39 Hyponatremia E87.1
[2022-01-27 22:08] LABS: HSV Type 1 DNA Not Detected (Not Detected); HSV Type 1&2 DNA Source Swab; HSV Type 2 DNA Not Detected (Not Detected)
--- NOTE | 2022-01-28 00:21 | Communication Note ---
Date of Service: January 28, 2022 Notified by nursing of intermittent temp elevations, to 37.7C this evening. Does already have scheduled tylenol. Reviewed chart and will defer adding additional prn tylenol for now. Consider holding scheduled tylenol if temperature elevations persist, to better follow temp trends.
[2022-01-28] MEDS ORDERED: MELATONIN 3 MG TAB PO PRN (01:20)
[2022-01-28] MEDS: ceFAZolin 2000MG 2,000 MG/15 ML SYR IV SCH ×3 (05:48→21:40)
[2022-01-28 07:10] LABS: Hematocrit (blood only) 22.9 % (40.1-51.0); Hemoglobin 8.1 g/dl (14.0-18.0); Mean Corpuscular Hemoglobin 29.9 pg (25.0-34.0); Mean Corpuscular Hgb Conc 35.4 g/dL (32.0-36.0); Mean Corpuscular Volume 84.5 fL (80.0-100.0); Mean Platelet Volume 10.6 fL (9.4-12.4); Platelet Count 21 K/uL (130-400); RDW Standard Deviation 39.9 fL (36.4-46.3); Red Blood Count 2.71 M/uL (4.63-6.08); White Blood Count 0.24 K/ul (4.8-10.8)
[2022-01-28 07:33] LABS: Albumin Globulin Ratio 0.7 (0.9-2); Albumin Level 2.5 gm/dl (3.4-5.0); BUN Creatinine Ratio 22.6 (10-20); Bilirubin,Total 0.4 mg/dl (0.2-1.0); Calcium 7.9 mg/dl (8.5-10.1); Est GFR (African American) 110.1 ml/min; Globulin 3.8 gm/dl (2.5-4.0); Potassium 3.8 mmol/L (3.5-5.1); Total Protein 6.3 gm/dl (6.0-8.3)
[2022-01-28] MEDS: ACETAMINOPHEN 500 MG TAB PO SCH ×3 (08:32→21:40)
[2022-01-28] MEDS: ACYCLOVIR 400 MG TAB PO SCH ×2 (08:32→21:40)
[2022-01-28] MEDS: VORICONAZOLE 200 MG TABLET PO SCH ×2 (08:32→21:40)
[2022-01-28] MEDS: ASCORBIC ACID 500 MG TAB PO SCH ×2 (08:32→21:40)
[2022-01-28] MEDS: CYANOCOBALAMIN (B-12) 500 MCG TABLET PO SCH (08:33)
[2022-01-28] MEDS: allopurinoL 300 MG TAB PO SCH (08:33)
[2022-01-28] MEDS: SENNA 8.6 MG TAB PO SCH (08:33)
[2022-01-28] MEDS: METOPROLOL SUCC 50MG EXT REL TAB PO SCH (08:33)
[2022-01-28] MEDS: POLYETHYLENE (MIRALAX) 17 GM PACK PO SCH (08:34)
[2022-01-28] MEDS: SODIUM CHLORIDE 1 GM TABLET PO SCH ×2 (08:58→21:40)
[2022-01-28] MEDS: FLUTICASONE PROPIONATE NA SPR 16 GM BTL SCH (08:58)
--- NOTE | 2022-01-28 11:23 | Electrocardiogram Report ---
Test Reason : Blood Pressure : / mmHG Vent. Rate : 110 BPM Atrial Rate : 110 BPM P-R Int : 166 ms QRS Dur : 142 ms QT Int : 408 ms P-R-T Axes : -16 -61 018 degrees QTc Int : 552 ms Sinus tachycardia Right bundle branch block Left anterior fascicular block Minimal voltage criteria for LVH, may be normal variant Abnormal ECG When compared with ECG of 21-JAN-2022 09:16, No significant change was found Confirmed by Scooter Brown ([id number]) on 01/28/2022 11:22:45 AM Referred By: REFERRED SELF Confirmed By:Scooter Brown
[2022-01-28] MEDS: levoFLOXacin 500 MG TAB PO SCH (11:44)
--- NOTE | 2022-01-28 17:05 | Hospitalist Progress Note ---
Date of Service January 28, 2022 Assessment & Plan (1) Bacteremia: Plan: Bacteremia/septicemia, POA 2nd to coag neg staph source - likely the lower sacral region ulceration repeat blood cultures 01/22 and 01/23 NEGATIVE does not have a port or hardware echo negative for SBE appreciate telehealth ID consult & recs cont IV ancef 2gm q8h with stop date of 02/05/22 could also use ancef 6gm continuous IV infusion at d/c as well prefers the q8h dosing at home social work aware of need for above (2) Pancytopenia: Plan: Patient admitted with antineoplastic induced pancytopenia and generalized weakness. Weakness secondary to symptomatic anemia but also secondary to bacteremia. With hemoglobin 7.0 on admission, platelets 11, and WBC count severely low at 0.1 with neutropenia. With fevers at home to 100 for a couple of weeks and then high spiking fevers up until 01/23/22. High fevers likely from [employer]IC[employer] bacteremia. s/p 1 unit PRBCs on 01/21 s/p 1 unit of platelets - transfusion stopped just before completion due to 20 point drop in blood pressure - no evidence of transfusion reaction however he then tolerated full platelet transfusion on 01/23 s/p another unit of PRBCs & apheresed platelets on 01/25 s/p platelets 01/27 Continue neutropenic precautions Continue daily CBC No role for Neupogen in the setting of AML Continue prophylactic acyclovir, voriconazole, and levofloxacin HSV culture from sacral rash sent/pending EKG checked today due to propensity for QTc prolongation with voriconazole/levaquin - QTc is prolonged, but unchanged from prior EKG cont telemetry (3) Headache: Plan: resolved CT head 01/27 negative for ICH or acute findings (4) Sepsis: Plan: As above improved clinically with repeat blood cx's negative to date repeat a CRP in the morning tomorrow prior CRP was 25 (5) Symptomatic anemia: Plan: s/p 2 units of PRBCs since admission H/H acceptable again today B12 level in November was <200 -- remains on B12 supplementation Folate wnl Ferritin >5000 in November c/w acute phase reactant (6) Rhabdomyolysis: Plan: Patient's CK was >3000 upon admission. resolved cause of rhabdo... statin induced? paraneoplastic from AML? 2nd to chemo? plan -- cont to hold statin. no further IV fluids needed (7) Pulmonary nodules: Plan: Noted to have multiple tiny nodules on thoracic spine CT Checked chest CT which also shows nodules and mediastinal and hilar lymphadenopathy-noted to be present on previous CT chest in 11/2021 Covering for pneumonia with cefepime and vancomycin Consult pulmonology appreciated-recommends that since there is stability of the nodules and lymphadenopathy since CT scan from November, likely not related to chemotherapy, but is at risk for opportunistic infections. Pulmonary recommends repeat CT chest in 8 weeks to reassess (8) Hypokalemia: Plan: replaced resolved (9) AML (acute myeloblastic leukemia): Plan: Holding venetoclax due to ongoing infection and low blood counts Appreciate oncology consultation and recs Daily CBC Neutropenic precautions Transfusional support as needed Targets - keep platelets >15; keep Hb >7.5 Last decitabine was ~[address] Burgos states that current pancytopenia/counts would not preclude him from d/c from the hospital he will have blood work M/W/F upon discharge every week with outpatient tr ansfusional support (10) Sacral wound: Plan: Appreciate wound care nurse consult suspected to be the source of bacteremia ID recommended HSV swab to this area to be completed swab sent & pending (11) Transaminitis: Plan: Secondary to rhabdomyolysis? Secondary to liver involvement from AML? Statin induced? other? regardless of etiology the ast/alt are just about normal repeat in 2-3 days for stability purposes (12) Elevated troponin: Plan: Likely demand ischemia secondary to acute infection and symptomatic anemia Echocardiogram -- preserved EF, neg wall motion abnormalities, mod-severe No ischemic symptoms (13) Dyslipidemia: Plan: hold statin due to rhabdo would not resume (14) Hypertension: Plan: Amlodipine stopped Remains on metoprolol succinate 100mg daily BPs acceptable (15) Benign enlargement of prostate: Plan: no LUTS at this time (16) Arteriosclerotic coronary artery disease: Plan: With a history of CABG previously Discontinued aspirin when started chemotherapy, discontinuing statin as above Continue Toprol-XL No ischemic symptoms even in face of anemia, etc (17) Aortic stenosis: Plan: Moderate-severe aortic stenosis no symptoms no CHF Monitor (18) Mood disorder: Plan: patient admits to feeling down but denies overt depression with that said he was tearful throughout the visit watch carefully for development of full-blown depression - low threshold to begin SSRI (19) Hyponatremia: Plan: ongoing check serum osm in am urine Na is nearly 100 urine osm 450s SIADH? start NaCl tabs 1gm BID repeat BMP am (20) Prolonged QT interval: Plan: likely 2nd to voriconazole & levaquin use unchanged relative to prior EKG mag/k/ca wnl keep on tele monitor carefully Plan DVT prophylaxis - SCDs only PT, OT evals appreciated updated via phone today dispo - home with HH services and IV abx hopefully early this week for d/c Admission and Anticipated Discharge Date Admission Date: January 21, 2022 Subjective had hard time sleeping last night ultimately got melatonin and finally fell asleep otherwise feeling ok today was on speaker phone during the visit - she requests a hospital bed for home and family are comfortable with the ancef TID at home via PIV patient had bowel movement this am eating fair light sensitivity is resolved no further headaches Review of Systems Review of Systems: gen - fatigue about the same or slightly less cv - no chest pain pulm - no cough, no dyspnea GI - no abd pain/N/V - no dysuria Physical Exam Physical Exam: gen - nontoxic, looks good today mouth - no thrush, no mucositis neck - no JVD heart - RRR, s1 s2, 2/6 holosystolic murmur RUSB/apex lungs - CTA b/l, no rales or wheeze abd - soft NT ND BS+ ext - no edema, pulses 2+ b/l Results & Data Results & Data ([facility]) Vital Signs (Past 12 Hours) Vital Signs Temp Pulse Pulse Resp BP Pulse Ox O2 Del Method 01/28/22 14:04 108 H 01/28/22 14:45 37.0 C 105 H 18 115/71 96 Room Air 01/28/22 11:28 37.0 C 111 H 20 110/70 94 Room Air 01/28/22 06:18 106 H 01/28/22 08:11 37.1 C 108 H 16 132/78 96 Room Air Laboratory Results Laboratory Results - last 24 hr 01/25/22 01/25/22 01/27/22 08:40 09:00 22:35 WBC RBC Hgb Hct MCV MCH MCHC RDW Std Deviation RDW Coeff of Marty Plt Count MPV Immature Gran % (Auto) Neut % (Auto) Lymph % (Auto) [place] % (Auto) Eos % (Auto) Baso % (Auto) Neut # (Auto) Lymph # (Auto) [place] # (Auto) Eos # (Auto) Baso # (Auto) Immature Gran # (Auto) Neutrophils % (Manual) Band Neutrophils % Lymphocytes % (Manual) Prolymphocyte % Reactive Lymphs % (Man) Monocytes % (Manual) Eosinophils % (Manual) Basophils % (Manual) Metamyelocytes % (Man) Myelocytes % (Man) Promyelocytes % (Man) Blast Cells % (Manual) Plasma Cell % (Manual) Other Cells % Nucleated RBC % Neutrophils # (Manual) Band Neutrophils # Total Absolute Neuts Lymphocytes # (Manual) Prolymphocyte # Reactive Lymphs # Total Abs Lymphocytes Monocytes # (Manual) Eosinophils # (Manual) Basophils # (Manual) Metamyelocytes # (Man) Myelocytes # (Manual) Promyelocytes # (Man) Blast Cells # (Man) Plasma Cell # (Manual) Other Cells # Nucleated RBCs # (Man) Hypersegmented Neuts Hyposegmented Neuts Hypogranular Neuts Large Granular Lymphs # Lrg Granular Lymphs Hairy Cells Smudge Cells Toxic Granulation Toxic Vacuolation Dohle Bodies Alyssa Rods Hypogranular Platelets Clumped Platelets Giant Platelets Platelet Satelliting RBC Morphology Polychromasia Hypochromasia Poikilocytosis Basophilic Stippling Anisocytosis Microcytosis Macrocytosis Spherocytes Pappenheimer Bodies Sickle Cells Target Cells Tear Drop Cells Ovalocytes Stomatocytes [place] Bodies Echinocytes Acanthocytes (Spur) Rouleaux RBC Agglutinates Schistocytes Sezary Cell Sodium Potassium Chloride Carbon Dioxide Anion Gap BUN Creatinine Est Cr Clr Drug Dosing Est GFR ( Amer) Est GFR (Non-Af Amer) BUN/Creatinine Ratio Glucose Calcium Total Bilirubin AST ALT Alkaline Phosphatase Total Protein Albumin Globulin Albumin/Globulin Ratio Urine Osmolality 458 L Ur Random Sodium Herpes Virus Source Swab HSV I DNA PCR Not Detected HSV II DNA PCR Not Detected Blood Parasites ID Crossmatch See Detail 01/27/22 01/28/22 01/28/22 22:35 06:10 06:10 WBC 0.24 L* RBC 2.71 L Hgb 8.1 L Hct 22.9 L MCV 84.5 MCH 29.9 MCHC 35.4 RDW Std Deviation 39.9 RDW Coeff of Marty 13.0 Plt Count 21 L* MPV 10.6 Immature Gran % (Auto) Cancelled Neut % (Auto) Cancelled Lymph % (Auto) Cancelled [place] % (Auto) Cancelled Eos % (Auto) Cancelled Baso % (Auto) Cancelled Neut # (Auto) Cancelled Lymph # (Auto) Cancelled [place] # (Auto) Cancelled Eos # (Auto) Cancelled Baso # (Auto) Cancelled Immature Gran # (Auto) Cancelled Neutrophils % (Manual) Cancelled Band Neutrophils % Cancelled Lymphocytes % (Manual) Cancelled Prolymphocyte % Cancelled Reactive Lymphs % (Man) Cancelled Monocytes % (Manual) Cancelled Eosinophils % (Manual) Cancelled Basophils % (Manual) Cancelled Metamyelocytes % (Man) Cancelled Myelocytes % (Man) Cancelled Promyelocytes % (Man) Cancelled Blast Cells % (Manual) Cancelled Plasma Cell % (Manual) Cancelled Other Cells % Cancelled Nucleated RBC % Cancelled Neutrophils # (Manual) Cancelled Band Neutrophils # Cancelled Total Absolute Neuts Cancelled Lymphocytes # (Manual) Cancelled Prolymphocyte # Cancelled Reactive Lymphs # Cancelled Total Abs Lymphocytes Cancelled Monocytes # (Manual) Cancelled Eosinophils # (Manual) Cancelled Basophils # (Manual) Cancelled Metamyelocytes # (Man) Cancelled Myelocytes # (Manual) Cancelled Promyelocytes # (Man) Cancelled Blast Cells # (Man) Cancelled Plasma Cell # (Manual) Cancelled Other Cells # Cancelled Nucleated RBCs # (Man) Cancelled Hypersegmented Neuts Cancelled Hyposegmented Neuts Cancelled Hypogranular Neuts Cancelled Large Granular Lymphs Cancelled # Lrg Granular Lymphs Cancelled Hairy Cells Cancelled Smudge Cells Cancelled Toxic Granulation Cancelled Toxic Vacuolation Cancelled Dohle Bodies Cancelled Alyssa Rods Cancelled Hypogranular Platelets Cancelled Clumped Platelets Cancelled Giant Platelets Cancelled Platelet Satelliting Cancelled RBC Morphology Cancelled Polychromasia Cancelled Hypochromasia Cancelled Poikilocytosis Cancelled Basophilic Stippling Cancelled Anisocytosis Cancelled Microcytosis Cancelled Macrocytosis Cancelled Spherocytes Cancelled Pappenheimer Bodies Cancelled Sickle Cells Cancelled Target Cells Cancelled Tear Drop Cells Cancelled Ovalocytes Cancelled Stomatocytes Cancelled [place] Bodies Cancelled Echinocytes Cancelled Acanthocytes (Spur) Cancelled Rouleaux Cancelled RBC Agglutinates Cancelled Schistocytes Cancelled Sezary Cell Cancelled Sodium 132 L Potassium 3.8 Chloride 99 Carbon Dioxide 26 Anion Gap 7 BUN 14 Creatinine 0.62 Est Cr Clr Drug Dosing 95.0 Est GFR ( Amer) 110.1 Est GFR (Non-Af Amer) 95.0 BUN/Creatinine Ratio 22.6 H Glucose 96 Calcium 7.9 L Total Bilirubin 0.4 AST 46 H ALT 51 Alkaline Phosphatase 131 H Total Protein 6.3 Albumin 2.5 L Globulin 3.8 Albumin/Globulin Ratio 0.7 L Urine Osmolality Ur Random Sodium 99 Herpes Virus Source HSV I DNA PCR HSV II DNA PCR Blood Parasites ID Cancelled Crossmatch Diagnostic Findings EKG - sinus tach, QTc prolongation (similar interval to last EKG) PG Care Time/CCT Total # of Minutes Spent Total Time Spent with Patient: Total time spent is greater than 50% in coordination of care (as documented) at patient's floor/unit and/or counseling patient: Coding Level of Care Code 10809 Subseq Hosp Care Lvl 3 Diagnoses Bacteremia R78.81 Pancytopenia D61.818 Headache R51.9 Sepsis A41.9 Symptomatic anemia D64.9 Rhabdomyolysis M62.82 Pulmonary nodules R91.8 Hypokalemia E87.6 AML (acute myeloblastic leukemia) C92.00 Sacral wound S31.000A Transaminitis R74.01 Elevated troponin R77.8 Dyslipidemia E78.5 Hypertension I10 Benign enlargement of prostate N40.0 Arteriosclerotic coronary artery disease I25.10 Aortic stenosis I35.0 Mood disorder F39 Hyponatremia E87.1 Prolonged QT interval R94.31
[2022-01-28] MEDS: MELATONIN 3 MG TAB PO SCH (21:40)
[2022-01-29] MEDS: ceFAZolin 2000MG 2,000 MG/15 ML SYR IV SCH ×3 (06:08→21:59)
[2022-01-29 06:57] LABS: Hematocrit (blood only) 21.9 % (40.1-51.0); Hemoglobin 7.8 g/dl (14.0-18.0); Mean Corpuscular Hemoglobin 29.8 pg (25.0-34.0); Mean Corpuscular Hgb Conc 35.6 g/dL (32.0-36.0); Mean Corpuscular Volume 83.6 fL (80.0-100.0); Mean Platelet Volume 9.8 fL (9.4-12.4); Platelet Count 15 K/uL (130-400); RDW Coefficient of Variation 12.9 % (11.5-14.5); RDW Standard Deviation 39.7 fL (36.4-46.3); Red Blood Count 2.62 M/uL (4.63-6.08); White Blood Count 0.22 K/ul (4.8-10.8)
[2022-01-29 07:15] LABS: BUN Creatinine Ratio 21.2 (10-20); C Reactive Protein 19.03 mg/dl (0-0.5); Creatinine Clr Calc Pharmacy 89.2 ml/min; Est GFR (African American) 107.3 ml/min; Est GFR (Non-African American) 92.6 ml/min; Potassium 3.7 mmol/L (3.5-5.1)
[2022-01-29] MEDS: VORICONAZOLE 200 MG TABLET PO SCH ×2 (08:13→20:38)
[2022-01-29] MEDS: CYANOCOBALAMIN (B-12) 500 MCG TABLET PO SCH (08:14)
[2022-01-29] MEDS: ASCORBIC ACID 500 MG TAB PO SCH ×2 (08:14→20:38)
[2022-01-29] MEDS: SODIUM CHLORIDE 1 GM TABLET PO SCH ×2 (08:14→20:39)
[2022-01-29] MEDS: ACETAMINOPHEN 500 MG TAB PO SCH ×3 (08:14→20:38)
[2022-01-29] MEDS: ACYCLOVIR 400 MG TAB PO SCH ×2 (08:14→20:38)
[2022-01-29] MEDS: POLYETHYLENE (MIRALAX) 17 GM PACK PO SCH (08:15)
[2022-01-29] MEDS: FLUTICASONE PROPIONATE NA SPR 16 GM BTL SCH (08:15)
[2022-01-29] MEDS: SENNA 8.6 MG TAB PO SCH (08:15)
[2022-01-29] MEDS: METOPROLOL SUCC 50MG EXT REL TAB PO SCH (08:15)
[2022-01-29] MEDS: allopurinoL 300 MG TAB PO SCH (08:15)
[2022-01-29] MEDS: levoFLOXacin 500 MG TAB PO SCH (11:40)
--- NOTE | 2022-01-29 18:10 | Hospitalist Progress Note ---
Date of Service January 29, 2022 Assessment & Plan (1) Bacteremia: Plan: Bacteremia/septicemia, POA 2nd to coag neg staph source - likely the lower sacral region ulceration repeat blood cultures 01/22 and 01/23 NEGATIVE does not have a port or hardware echo negative for SBE appreciate telehealth ID consult & recs cont IV ancef 2gm q8h with stop date of 02/05/22 could also use ancef 6gm continuous IV infusion at d/c as well prefers the q8h dosing at home social work aware of need for above will need u/s-guided peripheral IV for outpatient IV abx CRP still high - but slowly trending down (2) Pancytopenia: Plan: Patient admitted with antineoplastic induced pancytopenia and generalized weakness. Weakness secondary to symptomatic anemia but also secondary to bacteremia. With hemoglobin 7.0 on admission, platelets 11, and WBC count severely low at 0.1 with neutropenia. With fevers at home to 100 for a couple of weeks and then high spiking fevers up until 01/23/22. High fevers likely from [employer] bacteremia. s/p 1 unit PRBCs on 01/21 s/p 1 unit of platelets - transfusion stopped just before completion due to 20 point drop in blood pressure - no evidence of transfusion reaction however he then tolerated full platelet transfusion on 01/23 s/p another unit of PRBCs & apheresed platelets on 01/25 s/p platelets 01/27 CBC today with acceptable parameters Continue neutropenic precautions Continue daily CBC No role for Neupogen in the setting of AML Continue prophylactic acyclovir, voriconazole, and levofloxacin HSV culture from sacral rash sent/pending EKG checked 01/28 due to propensity for QTc prolongation with voriconazole/levaquin - QTc is prolonged, but interval is unchanged from prior EKG cont telemetry (3) Headache: Plan: resolved CT head 01/27 negative for ICH or acute findings (4) Sepsis: Plan: As above improved clinically with repeat blood cx's negative to date prior CRP was 25 --> now 19 repeat in 2-3 days (5) Symptomatic anemia: Plan: s/p 2 units of PRBCs since admission H/H acceptable today but likely to need PRBCs tomorrow B12 level in November was <200 -- remains on B12 supplementation Folate wnl Ferritin >5000 in November c/w acute phase reactant (6) Rhabdomyolysis: Plan: Patient's CK was >3000 upon admission. resolved now c/o b/l leg weakness - doubt that CPK has trended back up but will recheck CPK in am cause of rhabdo... statin induced? paraneoplastic from AML? 2nd to chemo? statin has been stopped; would not resume (7) Pulmonary nodules: Plan: Noted to have multiple tiny nodules on thoracic spine CT Checked chest CT which also shows nodules and mediastinal and hilar lymphadenopathy-noted to be present on previous CT chest in 11/2021 Initially received cefepime and vancomycin for pneumonia; vanco d/c, and after multiple days of cefepime it was stopped He likely did not have pneumonia, however Consulted pulmonology -- they advised that since nodules and lymphadenopathy have been stable since CT scan from November, likely not related to chemotherapy, but is at risk for opportunistic infections. Pulmonary recommends repeat CT chest in 8 weeks to reassess Cont prophylactic levaquin, voriconazole (8) Hypokalemia: Plan: replaced resolved (9) AML (acute myeloblastic leukemia): Plan: Holding venetoclax due to ongoing infection and low blood counts Appreciate oncology consultation and recs Daily CBC Neutropenic precautions Transfusional support as needed Targets - keep platelets >15; keep Hb >7.5 Last decitabine was 10+ days ago Dr Burgos states that current pancytopenia/counts would not preclude him from d/c from the hospital he will have blood work M/W/F upon discharge every week with outpatient transfusional support (10) Sacral wound: Plan: Appreciate wound care nurse consult suspected to be the source of bacteremia ID recommended HSV swab to this area to be completed swab sent & pending (11) Transaminitis: Plan: Secondary to rhabdomyolysis? Secondary to liver involvement from AML? Statin induced? other? regardless of etiology the ast/alt were nearly normal on most recent bloodwork repeat in 2-3 days for stability purposes (12) Elevated troponin: Plan: Likely demand ischemia secondary to acute infection and symptomatic anemia Echocardiogram -- preserved EF, neg wall motion abnormalities, mod-severe No ischemic symptoms (13) Dyslipidemia: Plan: hold statin due to rhabdo would not resume (14) Hypertension: Plan: Amlodipine stopped Remains on metoprolol succinate 100mg daily BPs cont to be acceptable (15) Benign enlargement of prostate: Plan: no LUTS at this time (16) Arteriosclerotic coronary artery disease: Plan: With a history of CABG previously Discontinued aspirin when started chemotherapy, discontinuing statin as above Continue Toprol-XL No ischemic symptoms even in face of anemia, etc (17) Aortic stenosis: Plan: Moderate-severe aortic stenosis no symptoms no CHF Monitor (18) Mood disorder: Plan: patient admits to feeling down but denies overt depression watch carefully for development of full-blown depression - low threshold to begin SSRI or remeron (19) Hyponatremia: Plan: ongoing but improved; now 134 today lowest Na level 132 urine Na is nearly 100 urine osm 450s serum osm low SIADH? started NaCl tabs 1gm BID repeat BMP am (20) Prolonged QT interval: Plan: likely 2nd to voriconazole & levaquin use unchanged relative to prior EKGs mag/k/ca wnl keep on tele monitor carefully Plan DVT prophylaxis - SCDs only PT, OT evals appreciated updated via phone yesterday son/daughter updated at bedside today dispo - home with HH services and IV abx this week requesting hospital bed for home Admission and Anticipated Discharge Date Admission Date: January 21, 2022 Subjective patient c/o weakness in his legs no pain or myalgias - just weakness appetite is good today had "rough night" last pm because of fever/sweats son, daughter and [id number] present during rounds - update given lengthy discussion about disposition, home IV abx, etc other than weak legs denies any new complaints did move bowels this am tele - NSR or sinus tach low 100s Review of Systems Review of Systems: gen - fatigue, fevers once/day; but good appetite; weakness ongoing cv - no cp, no orthopnea pulm - no cough, no dyspnea GI - no pain, nausea musculo - continues with b/l jaw pain - made better when he takes his false teeth out neuro - no paresthesias of legs; no further headache eyes - no further photophobia Physical Exam Physical Exam: gen - nontoxic, looks tired however; NAD mouth - no thrush, no mucositis neck - no JVD heart - mildly tachy, s1 s2, 2/6 holosystolic murmur RUSB/apex lungs - CTA b/l, no rales or wheeze abd - soft NT ND BS+ ext - no edema, pulses 2+ b/l neuro - strength b/l legs and arms 5/5; no proximal muscle weakness; no facial droop Results & Data Results & Data ([facility]) Vital Signs (Past 12 Hours) Vital Signs Temp Pulse Pulse Resp BP BP Pulse Ox 01/29/22 16:21 37.1 C 106 H 20 119/75 95 01/29/22 15:50 108 H 01/29/22 11:13 36.7 C 113 H 18 111/74 96 01/29/22 10:05 108 H 01/29/22 07:19 37.1 C 104 H 16 121/78 96 O2 Del Method 01/29/22 16:21 Room Air 01/29/22 15:50 01/29/22 11:13 Room Air 01/29/22 10:05 01/29/22 07:19 Room Air Laboratory Results Laboratory Results - last 24 hr 01/29/22 01/29/22 01/29/22 06:10 06:10 06:10 WBC 0.22 L* RBC 2.62 L Hgb 7.8 L Hct 21.9 L MCV 83.6 MCH 29.8 MCHC 35.6 RDW Std Deviation 39.7 RDW Coeff of Marty 12.9 Plt Count 15 L* MPV 9.8 Immature Gran % (Auto) Cancelled Neut % (Auto) Cancelled Lymph % (Auto) Cancelled [place] % (Auto) Cancelled Eos % (Auto) Cancelled Baso % (Auto) Cancelled Neut # (Auto) Cancelled Lymph # (Auto) Cancelled [place] # (Auto) Cancelled Eos # (Auto) Cancelled Baso # (Auto) Cancelled Immature Gran # (Auto) Cancelled Neutrophils % (Manual) Cancelled Band Neutrophils % Cancelled Lymphocytes % (Manual) Cancelled Prolymphocyte % Cancelled Reactive Lymphs % (Man) Cancelled Monocytes % (Manual) Cancelled Eosinophils % (Manual) Cancelled Basophils % (Manual) Cancelled Metamyelocytes % (Man) Cancelled Myelocytes % (Man) Cancelled Promyelocytes % (Man) Cancelled Blast Cells % (Manual) Cancelled Plasma Cell % (Manual) Cancelled Other Cells % Cancelled Nucleated RBC % Cancelled Neutrophils # (Manual) Cancelled Band Neutrophils # Cancelled Total Absolute Neuts Cancelled Lymphocytes # (Manual) Cancelled Prolymphocyte # Cancelled Reactive Lymphs # Cancelled Total Abs Lymphocytes Cancelled Monocytes # (Manual) Cancelled Eosinophils # (Manual) Cancelled Basophils # (Manual) Cancelled Metamyelocytes # (Man) Cancelled Myelocytes # (Manual) Cancelled Promyelocytes # (Man) Cancelled Blast Cells # (Man) Cancelled Plasma Cell # (Manual) Cancelled Other Cells # Cancelled Nucleated RBCs # (Man) Cancelled Hypersegmented Neuts Cancelled Hyposegmented Neuts Cancelled Hypogranular Neuts Cancelled Large Granular Lymphs Cancelled # Lrg Granular Lymphs Cancelled Hairy Cells Cancelled Smudge Cells Cancelled Toxic Granulation Cancelled Toxic Vacuolation Cancelled Dohle Bodies Cancelled Alyssa Rods Cancelled Hypogranular Platelets Cancelled Clumped Platelets Cancelled Giant Platelets Cancelled Platelet Satelliting Cancelled RBC Morphology Cancelled Polychromasia Cancelled Hypochromasia Cancelled Poikilocytosis Cancelled Basophilic Stippling Cancelled Anisocytosis Cancelled Microcytosis Cancelled Macrocytosis Cancelled Spherocytes Cancelled Pappenheimer Bodies Cancelled Sickle Cells Cancelled Target Cells Cancelled Tear Drop Cells Cancelled Ovalocytes Cancelled Stomatocytes Cancelled [place] Bodies Cancelled Echinocytes Cancelled Acanthocytes (Spur) Cancelled Rouleaux Cancelled RBC Agglutinates Cancelled Schistocytes Cancelled Sezary Cell Cancelled Sodium 134 L Potassium 3.7 Chloride 101 Carbon Dioxide 26 Anion Gap 7 BUN 14 Creatinine 0.66 Est Cr Clr Drug Dosing 89.2 Est GFR ( Amer) 107.3 Est GFR (Non-Af Amer) 92.6 BUN/Creatinine Ratio 21.2 H Glucose 98 Osmolality 278 L Calcium 8.0 L C-Reactive Protein 19.03 H Blood Parasites ID Cancelled PG Care Time/CCT Total # of Minutes Spent Total Time Spent with Patient: Total time spent is greater than 50% in coordination of care (as documented) at patient's floor/unit and/or counseling patient: Coding Level of Care Code 29900 Subseq Hosp Care Lvl 3 Diagnoses Bacteremia R78.81 Pancytopenia D61.818 Headache R51.9 Sepsis A41.9 Symptomatic anemia D64.9 Rhabdomyolysis M62.82 Pulmonary nodules R91.8 Hypokalemia E87.6 AML (acute myeloblastic leukemia) C92.00 Sacral wound S31.000A Transaminitis R74.01 Elevated troponin R77.8 Dyslipidemia E78.5 Hypertension I10 Benign enlargement of prostate N40.0 Arteriosclerotic coronary artery disease I25.10 Aortic stenosis I35.0 Mood disorder F39 Hyponatremia E87.1 Prolonged QT interval R94.31
[2022-01-29] MEDS: MELATONIN 3 MG TAB PO SCH (20:39)
[2022-01-30] MEDS: ceFAZolin 2000MG 2,000 MG/15 ML SYR IV SCH ×3 (05:44→22:28)
[2022-01-30 07:21] LABS: Hematocrit (blood only) 22.3 % (40.1-51.0); Hemoglobin 7.8 g/dl (14.0-18.0); Mean Corpuscular Hemoglobin 29.7 pg (25.0-34.0); Mean Corpuscular Volume 84.8 fL (80.0-100.0); Mean Platelet Volume 10.3 fL (9.4-12.4); Platelet Count 9 K/uL (130-400); RDW Coefficient of Variation 12.8 % (11.5-14.5); RDW Standard Deviation 39.9 fL (36.4-46.3); Red Blood Count 2.63 M/uL (4.63-6.08); White Blood Count 0.29 K/ul (4.8-10.8)
[2022-01-30 07:31] LABS: Calcium 8.2 mg/dl (8.5-10.1); Creatinine Clr Calc Pharmacy 98.2 ml/min; Est GFR (African American) 111.6 ml/min; Est GFR (Non-African American) 96.3 ml/min; Potassium 3.9 mmol/L (3.5-5.1)
[2022-01-30] MEDS: POLYETHYLENE (MIRALAX) 17 GM PACK PO SCH (08:00)
[2022-01-30] MEDS: ASCORBIC ACID 500 MG TAB PO SCH ×2 (08:00→22:22)
[2022-01-30] MEDS: allopurinoL 300 MG TAB PO SCH (08:01)
[2022-01-30] MEDS: METOPROLOL SUCC 50MG EXT REL TAB PO SCH (08:01)
[2022-01-30] MEDS: ACETAMINOPHEN 500 MG TAB PO SCH ×3 (08:01→22:20)
[2022-01-30] MEDS: CYANOCOBALAMIN (B-12) 500 MCG TABLET PO SCH (08:02)
[2022-01-30] MEDS: FLUTICASONE PROPIONATE NA SPR 16 GM BTL SCH (08:02)
[2022-01-30] MEDS: ACYCLOVIR 400 MG TAB PO SCH ×2 (08:02→22:21)
[2022-01-30] MEDS: SENNA 8.6 MG TAB PO SCH (08:03)
[2022-01-30] MEDS: VORICONAZOLE 200 MG TABLET PO SCH ×2 (08:03→22:24)
[2022-01-30] MEDS: SODIUM CHLORIDE 1 GM TABLET PO SCH ×2 (08:04→22:24)
[2022-01-30] MEDS ORDERED: ACETAMINOPHEN 325 MG TAB PO ONE (08:08)
[2022-01-30] MEDS: levoFLOXacin 500 MG TAB PO SCH (11:49)
--- NOTE | 2022-01-30 21:11 | Hospitalist Progress Note ---
Date of Service January 30, 2022 Assessment & Plan (1) Bacteremia: Plan: Bacteremia/septicemia, POA 2nd to coag neg staph source - likely the lower sacral region ulceration repeat blood cultures 01/22 and 01/23 NEGATIVE does not have a port or hardware echo negative for SBE appreciate telehealth ID consult & recs cont IV ancef 2gm q8h with stop date of 02/05/22 us-guided peripheral IV placed today /patient comfortable with plan for home IV abx social work assistance appreciated CRP still high - but slowly trending down (was 25, now <20 -- will get another crp and procal in am) (2) Pancytopenia: Plan: Patient admitted with antineoplastic induced pancytopenia and generalized weakness. Weakness secondary to symptomatic anemia but also secondary to bacteremia. With hemoglobin 7.0 on admission, platelets 11, and WBC count severely low at 0.1 with neutropenia. With fevers at home to 100 for a couple of weeks and then high spiking fevers up until 01/23/22. 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 s/p 1 unit PRBCs on 01/21 s/p 1 unit of platelets - transfusion stopped just before completion due to 20 point drop in blood pressure - no evidence of transfusion reaction however he then tolerated full platelet transfusion on 01/23 s/p another unit of PRBCs & apheresed platelets on 01/25 s/p platelets 01/27 CBC today with low platelets -- will Tx another unit of platelets today Continue neutropenic precautions Continue daily CBC No role for Neupogen in the setting of AML Continue prophylactic acyclovir, voriconazole, and levofloxacin HSV culture from sacral rash negative EKG checked 01/28 due to propensity for QTc prolongation with voriconazole/levaquin - QTc is prolonged, but interval is unchanged from prior EKG cont telemetry repeat EKG in am tomorrow (3) Headache: Plan: resolved CT head 01/27 negative for ICH or acute findings (4) Sepsis: Plan: As above improved clinically with repeat blood cx's negative to date prior CRP was 25 --> now 19 repeat again in am (5) Symptomatic anemia: Plan: s/p 2 units of PRBCs since admission H/H acceptable today B12 level in November was <200 -- remains on B12 supplementation Folate wnl Ferritin >5000 in November c/w acute phase reactant CBC in am (6) Rhabdomyolysis: Plan: Patient's CK was >3000 upon admission. CPK today completely normal resolved cause of rhabdo... statin induced? paraneoplastic from AML? 2nd to chemo? statin has been stopped; would not resume (7) Pulmonary nodules: Plan: Noted to have multiple tiny nodules on thoracic spine CT Checked chest CT which also shows nodules and mediastinal and hilar lymphadenopathy-noted to be present on previous CT chest in 11/2021 Initially received cefepime and vancomycin for pneumonia; vanco d/c, and after multiple days of cefepime it was stopped He likely did not have pneumonia, however Consulted pulmonology -- they advised that since nodules and lymphadenopathy have been stable since CT scan from November, likely not related to chemotherapy, but is at risk for opportunistic infections. Pulmonary recommends repeat CT chest in 8 weeks to reassess Cont prophylactic levaquin, voriconazole (8) Hypokalemia: Plan: replaced resolved (9) AML (acute myeloblastic leukemia): Plan: Holding venetoclax due to ongoing infection and low blood counts Appreciate oncology consultation and recs Daily CBC Neutropenic precautions Transfusional support as needed Targets - keep platelets >15; keep Hb >7.5 Last decitabine was 10+ days ago Dr Burgos states that current pancytopenia/counts would not preclude him from d/c from the hospital he will have blood work M/W/F upon discharge every week with outpatient transfusional support Transfuse 1 unit of platelets today repeat CBC am (10) Sacral wound: Plan: Appreciate wound care nurse consult suspected to be the source of bacteremia HSV culture negative cont local wound care (11) Transaminitis: Plan: Secondary to rhabdomyolysis? Secondary to liver involvement from AML? Statin induced? other? regardless of etiology the ast/alt were nearly normal on most recent bloodwork repeat LFTs am (12) Elevated troponin: Plan: Likely demand ischemia secondary to acute infection and symptomatic anemia Echocardiogram -- preserved EF, neg wall motion abnormalities, mod-severe No ischemic symptoms (13) Dyslipidemia: Plan: hold statin due to rhabdo would not resume (14) Hypertension: Plan: cont metoprolol succinate 100mg daily BPs acceptable (15) Benign enlargement of prostate: Plan: no LUTS at this time (16) Arteriosclerotic coronary artery disease: Plan: With a history of CABG previously Discontinued aspirin when started chemotherapy, discontinuing statin as above Continue Toprol-XL No ischemic symptoms even in face of anemia, etc (17) Aortic stenosis: Plan: Moderate-severe aortic stenosis no symptoms no CHF Monitor recent echo without SBE (18) Mood disorder: Plan: patient admits to feeling down but denies overt depression watch carefully for development of full-blown depression - low threshold to begin SSRI or remeron (19) Hyponatremia: Plan: lowest Na level 132 again Na level 134 urine Na is nearly 100 urine osm 450s serum osm low SIADH? cont NaCl tabs 1gm BID repeat BMP am (20) Prolonged QT interval: Plan: likely 2nd to voriconazole & levaquin use unchanged relative to prior EKGs mag/k/ca wnl keep on tele repeat EKG in am (21) Tachycardia: Plan: persistent, present since 01/23/22 AM his fevers began that same morning tachycardia could be manifestation of residual/resolving bacteremia/septicemia check TSH in am - r/o hyperthyroidism anemia could be contributing NO pulmonary symptoms; O2 sats wnl -- doubt PE, defer on CTA chest no significant pain no anxiety no dehydration suspect lingering SIRS causing the tachycardia follow Plan DVT prophylaxis - SCDs only PT, OT evals appreciated updated at bedside today dispo - home with HH services and IV abx this week Sunday? Admission and Anticipated Discharge Date Admission Date: January 21, 2022 Subjective patient without any new complaints he ate well throughout the day had a bowel movement worked with PT - he was tired after working with them received platelets today without issue no headache no photophobia at bedside - we talked about discharge planning, IV abx, need for u-s guided peripheral IV, etc Review of Systems Review of Systems: gen - no fevers today; no chills cv - no cp, no orthopnea, no edema pulm - no dyspnea or RODRIGUEZ; no cough GI - no nausea, vomiting or pain Gu - no issues musculo - no issues or pain Physical Exam Physical Exam: gen - nontoxic, looks tired like previous visits; NAD mouth - no thrush, no mucositis neck - no JVD heart - mildly tachy, s1 s2, 2/6 holosystolic murmur RUSB/apex lungs - CTA b/l, no rales or wheeze abd - soft NT ND BS+ ext - no edema, pulses 2+ b/l skin - stasis changes b/l legs Results & Data Results & Data ([facility]) Vital Signs (Past 12 Hours) Vital Signs Temp Pulse Pulse Resp BP BP BP 01/30/22 19:28 37.4 C 105 H 20 126/76 01/30/22 16:06 106 H 01/30/22 15:20 36.8 C 111 H 20 129/83 01/30/22 11:45 37 C 112 H 18 114/71 01/30/22 10:45 37.5 C 123 H 113/72 01/30/22 10:15 37.0 C 106 H 18 110/70 01/30/22 09:46 36.7 C 112 H 18 115/71 01/30/22 09:31 37.0 C 112 H 18 114/71 01/30/22 09:47 36.7 C 112 H 18 115/71 01/30/22 09:33 37 C 112 H 18 114/71 01/30/22 09:15 37.2 C 113 H 18 119/72 Pulse Ox O2 Del Method 01/30/22 19:28 93 Room Air 01/30/22 16:06 01/30/22 15:20 97 Room Air 01/30/22 11:45 95 01/30/22 10:45 93 01/30/22 10:15 95 01/30/22 09:46 96 01/30/22 09:31 95 01/30/22 09:47 96 Room Air 01/30/22 09:33 95 Room Air 01/30/22 09:15 95 Laboratory Results Laboratory Results - last 24 hr 01/21/22 01/30/22 01/30/22 10:32 06:40 06:40 WBC 0.29 L* RBC 2.63 L Hgb 7.8 L Hct 22.3 L MCV 84.8 MCH 29.7 MCHC 35.0 RDW Std Deviation 39.9 RDW Coeff of Marty 12.8 Plt Count 9 L* MPV 10.3 Immature Gran % (Auto) Cancelled Neut % (Auto) Cancelled Lymph % (Auto) Cancelled Bradley % (Auto) Cancelled Eos % (Auto) Cancelled Baso % (Auto) Cancelled Neut # (Auto) Cancelled Lymph # (Auto) Cancelled Bradley # (Auto) Cancelled Eos # (Auto) Cancelled Baso # (Auto) Cancelled Immature Gran # (Auto) Cancelled Neutrophils % (Manual) Cancelled Band Neutrophils % Cancelled Lymphocytes % (Manual) Cancelled Prolymphocyte % Cancelled Reactive Lymphs % (Man) Cancelled Monocytes % (Manual) Cancelled Eosinophils % (Manual) Cancelled Basophils % (Manual) Cancelled Metamyelocytes % (Man) Cancelled Myelocytes % (Man) Cancelled Promyelocytes % (Man) Cancelled Blast Cells % (Manual) Cancelled Plasma Cell % (Manual) Cancelled Other Cells % Cancelled Nucleated RBC % Cancelled Neutrophils # (Manual) Cancelled Band Neutrophils # Cancelled Total Absolute Neuts Cancelled Lymphocytes # (Manual) Cancelled Prolymphocyte # Cancelled Reactive Lymphs # Cancelled Total Abs Lymphocytes Cancelled Monocytes # (Manual) Cancelled Eosinophils # (Manual) Cancelled Basophils # (Manual) Cancelled Metamyelocytes # (Man) Cancelled Myelocytes # (Manual) Cancelled Promyelocytes # (Man) Cancelled Blast Cells # (Man) Cancelled Plasma Cell # (Manual) Cancelled Other Cells # Cancelled Nucleated RBCs # (Man) Cancelled Hypersegmented Neuts Cancelled Hyposegmented Neuts Cancelled Hypogranular Neuts Cancelled Large Granular Lymphs Cancelled # Lrg Granular Lymphs Cancelled Hairy Cells Cancelled Smudge Cells Cancelled Toxic Granulation Cancelled Toxic Vacuolation Cancelled Dohle Bodies Cancelled Alyssa Rods Cancelled Hypogranular Platelets Cancelled Clumped Platelets Cancelled Giant Platelets Cancelled Platelet Satelliting Cancelled RBC Morphology Cancelled Polychromasia Cancelled Hypochromasia Cancelled Poikilocytosis Cancelled Basophilic Stippling Cancelled Anisocytosis Cancelled Microcytosis Cancelled Macrocytosis Cancelled Spherocytes Cancelled Pappenheimer Bodies Cancelled Sickle Cells Cancelled Target Cells Cancelled Tear Drop Cells Cancelled Ovalocytes Cancelled Stomatocytes Cancelled [place] Bodies Cancelled Echinocytes Cancelled Acanthocytes (Spur) Cancelled Rouleaux Cancelled RBC Agglutinates Cancelled Schistocytes Cancelled Sezary Cell Cancelled Sodium 134 L Potassium 3.9 Chloride 100 Carbon Dioxide 26 Anion Gap 8 BUN 12 Creatinine 0.60 Est Cr Clr Drug Dosing 98.2 Est GFR ( Amer) 111.6 Est GFR (Non-Af Amer) 96.3 BUN/Creatinine Ratio 20.0 Glucose 99 Calcium 8.2 L Total Creatine Kinase 38 Blood Parasites ID Cancelled Crossmatch See Detail PG Care Time/CCT Total # of Minutes Spent Total Time Spent with Patient: Total time spent is greater than 50% in coordination of care (as documented) at patient's floor/unit and/or counseling patient: Coding Level of Care Code 68930 Subseq Hosp Care Lvl 3 Diagnoses Bacteremia R78.81 Pancytopenia D61.818 Headache R51.9 Sepsis A41.9 Symptomatic anemia D64.9 Rhabdomyolysis M62.82 Pulmonary nodules R91.8 Hypokalemia E87.6 AML (acute myeloblastic leukemia) C92.00 Sacral wound S31.000A Transaminitis R74.01 Elevated troponin R77.8 Dyslipidemia E78.5 Hypertension I10 Benign enlargement of prostate N40.0 Arteriosclerotic coronary artery disease I25.10 Aortic stenosis I35.0 Mood disorder F39 Hyponatremia E87.1 Prolonged QT interval R94.31 Tachycardia R00.0
[2022-01-30] MEDS: MELATONIN 3 MG TAB PO SCH (22:22)
[2022-01-31] MEDS: ceFAZolin 2000MG 2,000 MG/15 ML SYR IV SCH ×3 (05:30→22:07)
[2022-01-31 07:44] LABS: Hematocrit (blood only) 21.1 % (40.1-51.0); Hemoglobin 7.3 g/dl (14.0-18.0); Mean Corpuscular Hemoglobin 29.2 pg (25.0-34.0); Mean Corpuscular Hgb Conc 34.6 g/dL (32.0-36.0); Mean Corpuscular Volume 84.4 fL (80.0-100.0); Mean Platelet Volume 8.5 fL (9.4-12.4); Platelet Count 19 K/uL (130-400); RDW Coefficient of Variation 12.7 % (11.5-14.5); RDW Standard Deviation 39.5 fL (36.4-46.3); White Blood Count 0.26 K/ul (4.8-10.8)
[2022-01-31 07:51] LABS: Albumin Globulin Ratio 0.7 (0.9-2); Albumin Level 2.6 gm/dl (3.4-5.0); Bilirubin,Total 0.4 mg/dl (0.2-1.0); C Reactive Protein 22.37 mg/dl (0-0.5); Creatinine Clr Calc Pharmacy 113.3 ml/min; Est GFR (African American) 118.4 ml/min; Est GFR (Non-African American) 102.1 ml/min; Globulin 3.8 gm/dl (2.5-4.0); Potassium 3.7 mmol/L (3.5-5.1); Total Protein 6.4 gm/dl (6.0-8.3)
[2022-01-31] MEDS: FLUTICASONE PROPIONATE NA SPR 16 GM BTL SCH (08:24)
[2022-01-31] MEDS: SODIUM CHLORIDE 1 GM TABLET PO SCH ×2 (08:24→20:47)
[2022-01-31] MEDS: POLYETHYLENE (MIRALAX) 17 GM PACK PO SCH (08:24)
[2022-01-31] MEDS: allopurinoL 300 MG TAB PO SCH (08:25)
[2022-01-31] MEDS: CYANOCOBALAMIN (B-12) 500 MCG TABLET PO SCH (08:25)
[2022-01-31] MEDS: METOPROLOL SUCC 50MG EXT REL TAB PO SCH (08:25)
[2022-01-31] MEDS: ACETAMINOPHEN 500 MG TAB PO SCH ×3 (08:25→18:29)
[2022-01-31] MEDS: VORICONAZOLE 200 MG TABLET PO SCH ×2 (08:25→20:47)
[2022-01-31] MEDS: ACYCLOVIR 400 MG TAB PO SCH ×2 (08:26→20:46)
[2022-01-31] MEDS: SENNA 8.6 MG TAB PO SCH (08:26)
[2022-01-31] MEDS: ASCORBIC ACID 500 MG TAB PO SCH ×2 (08:26→20:47)
[2022-01-31] MEDS ORDERED: SODIUM CHLORIDE 0.9% 250 ML IV PRN (09:09)
[2022-01-31] MEDS: levoFLOXacin 500 MG TAB PO SCH (10:30)
--- NOTE | 2022-01-31 14:40 | Electrocardiogram Report ---
Test Reason : Blood Pressure : / mmHG Vent. Rate : 103 BPM Atrial Rate : 103 BPM P-R Int : 144 ms QRS Dur : 138 ms QT Int : 388 ms P-R-T Axes : 021 -58 017 degrees QTc Int : 508 ms Sinus tachycardia Right bundle branch block Left anterior fascicular block Minimal voltage criteria for LVH, may be normal variant Abnormal ECG When compared with ECG of 28-JAN-2022 09:01, No significant change was found Confirmed by Scooter Brown ([id number]) on 01/31/2022 2:40:08 PM Referred By: REFERRED SELF Confirmed By:Scooter Brown
--- NOTE | 2022-01-31 19:53 | Hospitalist Progress Note ---
Date of Service January 31, 2022 Assessment & Plan (1) Bacteremia: Plan: Bacteremia/septicemia, POA 2nd to coag neg staph source - likely the lower sacral region ulceration repeat blood cultures 01/22 and 01/23 NEGATIVE does not have a port or hardware echo negative for SBE appreciate telehealth ID consult & recs cont IV ancef 2gm q8h with stop date of 02/05/22 us-guided peripheral IV placed 01/30 /patient comfortable with plan for home IV abx social work assistance appreciated CRP still high - 22 today (range during stay 19-25) procal is negative today discussed elevated CRP with Dr Burgos - likely that ongoing CRP elevation is due to AML itself (2) Pancytopenia: Plan: Patient admitted with antineoplastic induced pancytopenia and generalized weakness. Weakness secondary to symptomatic anemia but also secondary to bacteremia. With hemoglobin 7.0 on admission, platelets 11, and WBC count severely low at 0.1 with neutropenia. With fevers at home to 100 for a couple of weeks and then high spiking fevers up until 01/23/22. High fevers likely from [employer]ING [employer]PER[employer] bacteremia. s/p 1 unit PRBCs on 01/21 s/p 1 unit of platelets - transfusion stopped just before completion due to 20 point drop in blood pressure - no evidence of transfusion reaction however he then tolerated full platelet transfusion on 01/23 s/p another unit of PRBCs & apheresed platelets on 01/25 s/p platelets 01/27 s/p platelets 01/30 Hb today <7.5 -- Tx 1 unit of PRBCs today - irradiated repeat CBC am Continue neutropenic precautions No role for Neupogen in the setting of AML Continue prophylactic acyclovir, voriconazole, and levofloxacin --- QTc on EKG today about 500msec HSV culture from sacral rash negative Dr Burgos will be checking labs MONDAYS, WEDNESDAYS, FRIDAYS as outpatient with transfusional support as needed spoke with case management (Charlotte Catalan) - home health can hopefully draw these at home and then get the labs to [facility] for Dr Burgos's review oncoming attending - please check with Dr Burgos about which standing labs he will need and give script for labs to Charlotte, if needed (3) Headache: Plan: resolved CT head 01/27 negative for ICH or acute findings (4) Sepsis: Plan: As above improved clinically with repeat blood cx's negative on 01/22 and 01/23 ID managed services sales consultant recommends repeat blood cultures 3 days post completion of IV ancef which would be mid-week next week (5) Symptomatic anemia: Plan: Tx 1 unit PRBCs today due to hb <7.5 repeat cbc am B12 level in November was <200 -- remains on B12 supplementation Folate wnl Ferritin >5000 in November c/w acute phase reactant (6) Rhabdomyolysis: Plan: Patient's CK was >3000 upon admission. CPK normalized cause of rhabdo... statin induced? paraneoplastic from AML? 2nd to chemo? statin has been stopped; would not resume (7) Pulmonary nodules: Plan: Noted to have multiple tiny nodules on thoracic spine CT Checked chest CT which also shows nodules and mediastinal and hilar ly mphadenopathy-noted to be present on previous CT chest in 11/2021 Initially received cefepime and vancomycin for pneumonia; vanco d/c, and after multiple days of cefepime it was stopped He likely did not have pneumonia, however Consulted pulmonology -- they advised that since nodules and lymphadenopathy have been stable since CT scan from November, likely not related to chemotherapy, but is at risk for opportunistic infections. Pulmonary recommends repeat CT chest in 8 weeks to reassess Cont prophylactic levaquin, voriconazole (8) Hypokalemia: Plan: replaced resolved (9) AML (acute myeloblastic leukemia): Plan: Holding venetoclax due to ongoing infection and low blood counts Appreciate oncology consultation and recs Daily CBC Neutropenic precautions Transfusional support as needed Targets - keep platelets >15; keep Hb >7.5 Last decitabine was 10+ days ago Dr Burgos states that current pancytopenia/counts would not preclude him from d/c from the hospital he will have blood work M/W/F upon discharge every week with outpatient transfusional support Transfuse 1 unit of PRBCs today repeat CBC am low-grade temps (37.5-38) often experienced early evening/night-time are likely due to AML elevated CRP also likely due to AML (10) Sacral wound: Plan: Appreciate wound care nurse consult suspected to be the source of bacteremia HSV culture negative cont local wound care with optifoam (wound care saw again today) (11) Transaminitis: Plan: Secondary to rhabdomyolysis? Secondary to liver involvement from AML? Statin induced? other? regardless of etiology the ast/alt were nearly normal on most recent bloodwork repeat LFTs today wnl (12) Elevated troponin: Plan: Likely demand ischemia secondary to acute infection and symptomatic anemia Echocardiogram -- preserved EF, neg wall motion abnormalities, mod-severe No ischemic symptoms (13) Dyslipidemia: Plan: hold statin due to rhabdo would not resume statin at discharge (14) Hypertension: Plan: cont metoprolol succinate 100mg daily BPs acceptable (15) Benign enlargement of prostate: Plan: no LUTS at this time (16) Arteriosclerotic coronary artery disease: Plan: With a history of CABG previously Discontinued aspirin when started chemotherapy, discontinuing statin as above Continue Toprol-XL No ischemic symptoms even in face of anemia, etc (17) Aortic stenosis: Plan: Moderate-severe aortic stenosis no symptoms no CHF Monitor recent echo without SBE (18) Mood disorder: Plan: patient admits to feeling down but denies overt depression watch carefully for development of full-blown depression - low threshold to begin SSRI or remeron (19) Hyponatremia: Plan: lowest Na level 132 again Na level 134 urine Na is nearly 100 urine osm 450s serum osm low SIADH? cont NaCl tabs 1gm BID repeat BMP am (20) Prolonged QT interval: Plan: likely 2nd to voriconazole & levaquin use EKG today with QTc 500msec stable mag/k/ca wnl no arrhythmias seen during the stay (21) Tachycardia: Plan: persistent, present since 01/23/22 AM his fevers began that same morning tachycardia could be manifestation of residual/resolving bacteremia/septicemia checked TSH -- wnl anemia could be contributing NO pulmonary symptoms; O2 sats wnl -- doubt PE, defer on CTA chest no significant pain no anxiety no dehydration suspect lingering SIRS causing the tachycardia HRs today actually better in the 90s no additional Rx or work-up at this time Plan DVT prophylaxis - SCDs only PT, OT evals appreciated updated by phone today dispo - home with HH services and IV abx --- hopefully tomorrow on Sunday care d/w Dr Burgos by phone today Admission and Anticipated Discharge Date Admission Date: January 21, 2022 Subjective no new issues overnight tele this am - HRs 90 some HRs low 100s he was resting in bed during the visit had bowel movement this am - formed "I think I feel better today" did have low-grade fever overnight appetite at breakfast normal this am Review of Systems Review of Systems: cv - no cp, no pleuritic pain, no orthopnea, no edeam pulm - no cough, no dyspnea, no RODRIGUEZ GI - no N/V/abd pain - voiding w/o LUTS Physical Exam Physical Exam: gen - nontoxic, NAD, unchanged from prior exams mouth - no thrush, no mucositis neck - no JVD heart - RRR, s1 s2, 2/6 holosystolic murmur RUSB/apex lungs - CTA b/l, no rales or wheeze abd - soft NT ND BS+ ext - no edema, pulses 2+ b/l skin - stasis changes b/l legs; generalized pallor; buttock ulcer examined, about 3-4mm in length, 1mm in depth -- clean, no drainage; mild induration underneath the ulceration; no surrounding cellulitis Results & Data Results & Data ([facility]) Vital Signs (Past 12 Hours) Vital Signs Temp Pulse Pulse Resp BP BP BP 01/31/22 19:30 37.6 C H 103 H 20 124/79 01/31/22 19:15 37.5 C 103 H 18 127/79 01/31/22 18:56 37.1 C 104 H 18 126/77 01/31/22 15:15 85 01/31/22 15:25 37.2 C 107 H 18 122/73 01/31/22 12:33 91 H 01/31/22 11:36 37.1 C 115 H 20 123/69 Pulse Ox O2 Del Method 01/31/22 19:30 94 01/31/22 19:15 94 01/31/22 18:56 95 01/31/22 15:15 01/31/22 15:25 94 Room Air 01/31/22 12:33 01/31/22 11:36 97 Room Air Laboratory Results Laboratory Results - last 24 hr 01/21/22 01/31/22 01/31/22 10:32 06:40 06:40 WBC 0.26 L* RBC 2.50 L Hgb 7.3 L Hct 21.1 L MCV 84.4 MCH 29.2 MCHC 34.6 RDW Std Deviation 39.5 RDW Coeff of Marty 12.7 Plt Count 19 L* D MPV 8.5 L Immature Gran % (Auto) Cancelled Neut % (Auto) Cancelled Lymph % (Auto) Cancelled [place] % (Auto) Cancelled Eos % (Auto) Cancelled Baso % (Auto) Cancelled Neut # (Auto) Cancelled Lymph # (Auto) Cancelled [place] # (Auto) Cancelled Eos # (Auto) Cancelled Baso # (Auto) Cancelled Immature Gran # (Auto) Cancelled Neutrophils % (Manual) Cancelled Band Neutrophils % Cancelled Lymphocytes % (Manual) Cancelled Prolymphocyte % Cancelled Reactive Lymphs % (Man) Cancelled Monocytes % (Manual) Cancelled Eosinophils % (Manual) Cancelled Basophils % (Manual) Cancelled Metamyelocytes % (Man) Cancelled Myelocytes % (Man) Cancelled Promyelocytes % (Man) Cancelled Blast Cells % (Manual) Cancelled Plasma Cell % (Manual) Cancelled Other Cells % Cancelled Nucleated RBC % Cancelled Neutrophils # (Manual) Cancelled Band Neutrophils # Cancelled Total Absolute Neuts Cancelled Lymphocytes # (Manual) Cancelled Prolymphocyte # Cancelled Reactive Lymphs # Cancelled Total Abs Lymphocytes Cancelled Monocytes # (Manual) Cancelled Eosinophils # (Manual) Cancelled Basophils # (Manual) Cancelled Metamyelocytes # (Man) Cancelled Myelocytes # (Manual) Cancelled Promyelocytes # (Man) Cancelled Blast Cells # (Man) Cancelled Plasma Cell # (Manual) Cancelled Other Cells # Cancelled Nucleated RBCs # (Man) Cancelled Hypersegmented Neuts Cancelled Hyposegmented Neuts Cancelled Hypogranular Neuts Cancelled Large Granular Lymphs Cancelled # Lrg Granular Lymphs Cancelled Hairy Cells Cancelled Smudge Cells Cancelled Toxic Granulation Cancelled Toxic Vacuolation Cancelled Dohle Bodies Cancelled Alyssa Rods Cancelled Hypogranular Platelets Cancelled Clumped Platelets Cancelled Giant Platelets Cancelled Platelet Satelliting Cancelled RBC Morphology Cancelled Polychromasia Cancelled Hypochromasia Cancelled Poikilocytosis Cancelled Basophilic Stippling Cancelled Anisocytosis Cancelled Microcytosis Cancelled Macrocytosis Cancelled Spherocytes Cancelled Pappenheimer Bodies Cancelled Sickle Cells Cancelled Target Cells Cancelled Tear Drop Cells Cancelled Ovalocytes Cancelled Stomatocytes Cancelled [place] Bodies Cancelled Echinocytes Cancelled Acanthocytes (Spur) Cancelled Rouleaux Cancelled RBC Agglutinates Cancelled Schistocytes Cancelled Sezary Cell Cancelled Sodium 133 L Potassium 3.7 Chloride 101 Carbon Dioxide 25 Anion Gap 7 BUN 13 Creatinine 0.52 L Est Cr Clr Drug Dosing 113.3 Est GFR ( Amer) 118.4 Est GFR (Non-Af Amer) 102.1 BUN/Creatinine Ratio 25.0 H Glucose 98 Calcium 8.0 L Total Bilirubin 0.4 AST 29 ALT 21 Alkaline Phosphatase 121 H C-Reactive Protein 22.37 H Total Protein 6.4 Albumin 2.6 L Globulin 3.8 Albumin/Globulin Ratio 0.7 L Procalcitonin TSH Blood Parasites ID Cancelled Blood Type Antibody Screen Crossmatch See Detail 01/31/22 01/31/22 01/31/22 06:40 06:40 09:24 WBC RBC Hgb Hct MCV MCH MCHC RDW Std Deviation RDW Coeff of Marty Plt Count MPV Immature Gran % (Auto) Neut % (Auto) Lymph % (Auto) [place] % (Auto) Eos % (Auto) Baso % (Auto) Neut # (Auto) Lymph # (Auto) [place] # (Auto) Eos # (Auto) Baso # (Auto) Immature Gran # (Auto) Neutrophils % (Manual) Band Neutrophils % Lymphocytes % (Manual) Prolymphocyte % Reactive Lymphs % (Man) Monocytes % (Manual) Eosinophils % (Manual) Basophils % (Manual) Metamyelocytes % (Man) Myelocytes % (Man) Promyelocytes % (Man) Blast Cells % (Manual) Plasma Cell % (Manual) Other Cells % Nucleated RBC % Neutrophils # (Manual) Band Neutrophils # Total Absolute Neuts Lymphocytes # (Manual) Prolymphocyte # Reactive Lymphs # Total Abs Lymphocytes Monocytes # (Manual) Eosinophils # (Manual) Basophils # (Manual) Metamyelocytes # (Man) Myelocytes # (Manual) Promyelocytes # (Man) Blast Cells # (Man) Plasma Cell # (Manual) Other Cells # Nucleated RBCs # (Man) Hypersegmented Neuts Hyposegmented Neuts Hypogranular Neuts Large Granular Lymphs # Lrg Granular Lymphs Hairy Cells Smudge Cells Toxic Granulation Toxic Vacuolation Dohle Bodies Alyssa Rods Hypogranular Platelets Clumped Platelets Giant Platelets Platelet Satelliting RBC Morphology Polychromasia Hypochromasia Poikilocytosis Basophilic Stippling Anisocytosis Microcytosis Macrocytosis Spherocytes Pappenheimer Bodies Sickle Cells Target Cells Tear Drop Cells Ovalocytes Stomatocytes [place] Bodies Echinocytes Acanthocytes (Spur) Rouleaux RBC Agglutinates Schistocytes Sezary Cell Sodium Potassium Chloride Carbon Dioxide Anion Gap BUN Creatinine Est Cr Clr Drug Dosing Est GFR ( Amer) Est GFR (Non-Af Amer) BUN/Creatinine Ratio Glucose Calcium Total Bilirubin AST ALT Alkaline Phosphatase C-Reactive Protein Total Protein Albumin Globulin Albumin/Globulin Ratio Procalcitonin 0.32 TSH 2.655 Blood Parasites ID Blood Type A Positive Antibody Screen NEGATIVE Crossmatch See Detail PG Care Time/CCT Total # of Minutes Spent Total Time Spent with Patient: Total time spent is greater than 50% in coordination of care (as documented) at patient's floor/unit and/or counseling patient: Coding Level of Care Code 87110 Subseq Hosp Care Lvl 3 Diagnoses Bacteremia R78.81 Pancytopenia D61.818 Headache R51.9 Sepsis A41.9 Symptomatic anemia D64.9 Rhabdomyolysis M62.82 Pulmonary nodules R91.8 Hypokalemia E87.6 AML (acute myeloblastic leukemia) C92.00 Sacral wound S31.000A Transaminitis R74.01 Elevated troponin R77.8 Dyslipidemia E78.5 Hypertension I10 Benign enlargement of prostate N40.0 Arteriosclerotic coronary artery disease I25.10 Aortic stenosis I35.0 Mood disorder F39 Hyponatremia E87.1 Prolonged QT interval R94.31 Tachycardia R00.0
[2022-01-31] MEDS: MELATONIN 3 MG TAB PO SCH (20:46)
[2022-02-01] MEDS: ceFAZolin 2000MG 2,000 MG/15 ML SYR IV SCH (06:27)
[2022-02-01 07:51] LABS: Hematocrit (blood only) 23.4 % (40.1-51.0); Hemoglobin 8.1 g/dl (14.0-18.0); Mean Corpuscular Hemoglobin 29.2 pg (25.0-34.0); Mean Corpuscular Hgb Conc 34.6 g/dL (32.0-36.0); Mean Corpuscular Volume 84.5 fL (80.0-100.0); Mean Platelet Volume 9.1 fL (9.4-12.4); Platelet Count 13 K/uL (130-400); RDW Coefficient of Variation 12.5 % (11.5-14.5); RDW Standard Deviation 38.5 fL (36.4-46.3); Red Blood Count 2.77 M/uL (4.63-6.08); White Blood Count 0.32 K/ul (4.8-10.8)
[2022-02-01 08:01] LABS: BUN Creatinine Ratio 23.6 (10-20); Calcium 7.9 mg/dl (8.5-10.1); Creatinine Clr Calc Pharmacy 107.1 ml/min; Est GFR (African American) 115.7 ml/min; Est GFR (Non-African American) 99.8 ml/min; Potassium 3.9 mmol/L (3.5-5.1)
--- NOTE | 2022-02-01 08:20 | Hospitalist Progress Note ---
Date of Service February 01, 2022 Assessment & Plan (1) Bacteremia: Plan: Bacteremia/septicemia, POA 2nd to coag neg staph source - likely the lower sacral region ulceration repeat blood cultures 01/22 and 01/23 NEGATIVE does not have a port or hardware echo negative for SBE appreciate telehealth ID consult & recs cont IV ancef 2gm q8h with stop date of 02/05/22 us-guided peripheral IV placed 01/30 /patient comfortable with plan for home IV abx social work assistance appreciated CRP still high - 22 today (range during stay 19-25) procal is negative today discussed elevated CRP with Dr Burgos - likely that ongoing CRP elevation is due to AML itself (2) Pancytopenia: Plan: Patient admitted with antineoplastic induced pancytopenia and generalized weakness. Weakness secondary to symptomatic anemia but also secondary to bacteremia. With hemoglobin 7.0 on admission, platelets 11, and WBC count severely low at 0.1 with neutropenia. With fevers at home to 100 for a couple of weeks and then high spiking fevers up until 01/23/22. High fevers likely from [employer]ODUCTION [employer]OL [employer]ED[employer]ER bacteremia. s/p 1 unit PRBCs on 01/21 s/p 1 unit of platelets - transfusion stopped just before completion due to 20 point drop in blood pressure - no evidence of transfusion reaction however he then tolerated full platelet transfusion on 01/23 s/p another unit of PRBCs & apheresed platelets on 01/25 s/p platelets 01/27 s/p platelets 01/30 Hb today <7.5 -- Tx 1 unit of PRBCs today - irradiated repeat CBC am Continue neutropenic precautions No role for Neupogen in the setting of AML Continue prophylactic acyclovir, voriconazole, and levofloxacin --- QTc on EKG today about 500msec HSV culture from sacral rash negative Dr Burgos will be checking labs MONDAYS, WEDNESDAYS, FRIDAYS as outpatient with transfusional support as needed spoke with case management (Charlotte Catalan) - home health can hopefully draw these at home and then get the labs to [facility] for Dr Burgos's review oncoming attending - please check with Dr Burgos about which standing labs he will need and give script for labs to Charlotte, if needed (3) Headache: Plan: resolved CT head 01/27 negative for ICH or acute findings (4) Sepsis: Plan: As above improved clinically with repeat blood cx's negative on 01/22 and 01/23 ID documentation consultant recommends repeat blood cultures 3 days post completion of IV ancef which would be mid-week next week (5) Symptomatic anemia: Plan: Tx 1 unit PRBCs today due to hb <7.5 repeat cbc am B12 level in November was <200 -- remains on B12 supplementation Folate wnl Ferritin >5000 in November c/w acute phase reactant (6) Rhabdomyolysis: Plan: Patient's CK was >3000 upon admission. CPK normalized cause of rhabdo... statin induced? paraneoplastic from AML? 2nd to chemo? statin has been stopped; would not resume (7) Pulmonary nodules: Plan: Noted to have multiple tiny nodules on thoracic spine CT Checked chest CT which also shows nodules and mediastinal and hilar ly mphadenopathy-noted to be present on previous CT chest in 11/2021 Initially received cefepime and vancomycin for pneumonia; vanco d/c, and after multiple days of cefepime it was stopped He likely did not have pneumonia, however Consulted pulmonology -- they advised that since nodules and lymphadenopathy have been stable since CT scan from November, likely not related to chemotherapy, but is at risk for opportunistic infections. Pulmonary recommends repeat CT chest in 8 weeks to reassess Cont prophylactic levaquin, voriconazole (8) Hypokalemia: Plan: replaced resolved (9) AML (acute myeloblastic leukemia): Plan: Holding venetoclax due to ongoing infection and low blood counts Appreciate oncology consultation and recs Daily CBC Neutropenic precautions Transfusional support as needed Targets - keep platelets >15; keep Hb >7.5 Last decitabine was 10+ days ago Dr Burgos states that current pancytopenia/counts would not preclude him from d/c from the hospital he will have blood work M/W/F upon discharge every week with outpatient transfusional support Transfuse 1 unit of PRBCs today repeat CBC am low-grade temps (37.5-38) often experienced early evening/night-time are likely due to AML elevated CRP also likely due to AML (10) Sacral wound: Plan: Appreciate wound care nurse consult suspected to be the source of bacteremia HSV culture negative cont local wound care with optifoam (wound care saw again today) (11) Transaminitis: Plan: Secondary to rhabdomyolysis? Secondary to liver involvement from AML? Statin induced? other? regardless of etiology the ast/alt were nearly normal on most recent bloodwork repeat LFTs today wnl (12) Elevated troponin: Plan: Likely demand ischemia secondary to acute infection and symptomatic anemia Echocardiogram -- preserved EF, neg wall motion abnormalities, mod-severe No ischemic symptoms (13) Dyslipidemia: Plan: hold statin due to rhabdo would not resume statin at discharge (14) Hypertension: Plan: cont metoprolol succinate 100mg daily BPs acceptable (15) Benign enlargement of prostate: Plan: no LUTS at this time (16) Arteriosclerotic coronary artery disease: Plan: With a history of CABG previously Discontinued aspirin when started chemotherapy, discontinuing statin as above Continue Toprol-XL No ischemic symptoms even in face of anemia, etc (17) Aortic stenosis: Plan: Moderate-severe aortic stenosis no symptoms no CHF Monitor recent echo without SBE (18) Mood disorder: Plan: patient admits to feeling down but denies overt depression watch carefully for development of full-blown depression - low threshold to begin SSRI or remeron (19) Hyponatremia: Plan: lowest Na level 132 again Na level 134 urine Na is nearly 100 urine osm 450s serum osm low SIADH? cont NaCl tabs 1gm BID repeat BMP am (20) Prolonged QT interval: Plan: likely 2nd to voriconazole & levaquin use EKG today with QTc 500msec stable mag/k/ca wnl no arrhythmias seen during the stay (21) Tachycardia: Plan: persistent, present since 01/23/22 AM his fevers began that same morning tachycardia could be manifestation of residual/resolving bacteremia/septicemia checked TSH -- wnl anemia could be contributing NO pulmonary symptoms; O2 sats wnl -- doubt PE, defer on CTA chest no significant pain no anxiety no dehydration suspect lingering SIRS causing the tachycardia HRs today actually better in the 90s no additional Rx or work-up at this time Plan DVT prophylaxis - SCDs only PT, OT evals appreciated updated by phone today dispo - home with HH services and IV abx --- hopefully tomorrow on Sunday care d/w Dr Burgos by phone today Admission and Anticipated Discharge Date Admission Date: January 21, 2022 Subjective Evaluated this morning, doing alright. Wondering about going home, discussed ordered platelets per prior recs but arranging for dc around noon so he can be home for abx. He states he spoke with his this AM and still no hospital bed. Will check with CM as needing to make sure delivered prior to d/c. Will await response. Eating/drinking, no pain reported but will send couple oxycodone for breakthrough pain. Low grade temp but no fever this morning, likely from his AML. Questions/concerns addressed at this time. Results & Data Results & Data ([facility]) Vital Signs (Past 12 Hours) Vital Signs Temp Pulse Pulse Resp BP BP Pulse Ox 02/01/22 07:24 37.8 C H 90 18 138/78 94 02/01/22 04:11 37.3 C 90 20 134/72 95 01/31/22 22:15 104 H 01/31/22 21:50 37.3 C 104 H 18 128/78 94 01/31/22 21:00 37.4 C 103 H 20 130/79 94 O2 Del Method 02/01/22 07:24 Room Air 02/01/22 04:11 Room Air 01/31/22 22:15 01/31/22 21:50 01/31/22 21:00 PG Care Time/CCT Total # of Minutes Spent Total Time Spent with Patient: Total time spent is greater than 50% in coordination of care (as documented) at patient's floor/unit and/or counseling patient: Coding Diagnoses Bacteremia R78.81 Pancytopenia D61.818 Headache R51.9 Sepsis A41.9 Symptomatic anemia D64.9 Rhabdomyolysis M62.82 Pulmonary nodules R91.8 Hypokalemia E87.6 AML (acute myeloblastic leukemia) C92.00 Sacral wound S31.000A Transaminitis R74.01 Elevated troponin R77.8 Dyslipidemia E78.5 Hypertension I10 Benign enlargement of prostate N40.0 Arteriosclerotic coronary artery disease I25.10 Aortic stenosis I35.0 Mood disorder F39 Hyponatremia E87.1 Prolonged QT interval R94.31 Tachycardia R00.0
[2022-02-01] MEDS: ASCORBIC ACID 500 MG TAB PO SCH (08:40)
[2022-02-01] MEDS: VORICONAZOLE 200 MG TABLET PO SCH (08:41)
[2022-02-01] MEDS: SODIUM CHLORIDE 1 GM TABLET PO SCH (08:41)
[2022-02-01] MEDS: CYANOCOBALAMIN (B-12) 500 MCG TABLET PO SCH (08:41)
[2022-02-01] MEDS: ACYCLOVIR 400 MG TAB PO SCH (08:42)
[2022-02-01] MEDS: SENNA 8.6 MG TAB PO SCH (08:42)
[2022-02-01] MEDS: FLUTICASONE PROPIONATE NA SPR 16 GM BTL SCH (08:42)
[2022-02-01] MEDS: METOPROLOL SUCC 50MG EXT REL TAB PO SCH (08:43)
[2022-02-01] MEDS: ACETAMINOPHEN 500 MG TAB PO SCH (08:44)
[2022-02-01] MEDS: POLYETHYLENE (MIRALAX) 17 GM PACK PO SCH (08:45)
[2022-02-01] MEDS: allopurinoL 300 MG TAB PO SCH (08:45)
[2022-02-01] MEDS ORDERED: ACETAMINOPHEN 500 MG TAB PO ONE ×2 (09:19→09:21)
--- NOTE | 2022-02-01 11:41 | Discharge Summary ---
Date of Service February 01, 2022 Admission HPI Per Admitting Provider 76 yo male comes to the hospital with PMH of AML, on prophylactic medications: voriconazole, levofloxacin and acyclovir. Patient had a recent hospital stay (Early November) at [place] for induction fo chemotherapy with venetoclax and Dacogen. Patient was then admitted for pancytopenia at then end of November. Patient reports having worsening fatigue, lower extremity weakness. Patient states he had difficulty ambulating today after using the restroom which brought him to the hospital. HE HAS NOTICED LOWER EXTREMITY WEAKNESS FOR THE PAST FEW DAYS. Family reports that he has been having intermittent fevers of 100.6 for the past few weeks. IN the ER, patient appears comfortable, and is afebrile. Admission Exam Per Admitting Provider Constitutional: WD/WN, vitals as above Eyes: PERRL, conjunctivae normal, anicteric sclerae ENMT: external ear and nose normal, oropharynx normal Neck: trachea midline, no thyromegaly Respiratory: normal respiratory effort, lungs clear to auscultation Cardiovascular: Rate/Rhythm: regular rate and regular rhythm Heart Sounds: + murmur (3/6 JENNIFER at RUSB) Extremities: no edema Chest (Breasts): Chest: normal inspection of chest Gastrointestinal (Abdomen): normal bowel sounds, soft, nontender, no hepatosplenomegaly Musculoskeletal: Extremities: extremities normal to inspection; no cyanosis and no clubbing Skin: no rashes, warm and dry Neurologic: moves all extremities and awake; no focal motor deficits Psychiatric: A+Ox3, euthymic affect Lymphatic: no lymphedema Principal Diagnosis Bacteremia, Septicemia, Sacral Wound Discharge Exam general - WD, male, nontoxic, NAD, sitting in bed, anxious for discharge mouth - no thrush, no mucositis neck - no JVD heart - RRR, s1 s2, 2/6 holosystolic murmur RUSB/apex, prior sternotomy scar lungs - CTA b/l, no rales or wheeze abd - soft NT ND BS+ ext - no edema, pulses 2+ b/l skin - stasis changes b/l legs; generalized pallor; buttock ulcer examined, about 3-4mm in length, 1mm in depth -- clean, no drainage; mild induration u nderneath the ulceration; no surrounding cellulitis Discharge Data Allergies Allergy/AdvReac Type Severity Reaction Status Date / Time diphenhydramine AdvReac Severe ITCHING Verified 01/19/22 12:02 [From Benadryl] losartan AdvReac Intermediate FATIGUE, Verified 01/19/22 12:02 CHEST PAIN oxycodone [From Percocet] AdvReac Intermediate Confusion Verified 01/19/22 12:02 lisinopril AdvReac Mild FATIGUE Verified 01/19/22 12:02 Consultations 01/21/22 11:04 ED Decision to Admit Stat 01/21/22 13:43 Consult Oncology Routine 01/22/22 21:19 Consult Pulmonology Routine 01/23/22 16:47 Consult Infectious Diseases Routine Ordered Studies Chest X-Ray 01/21/22 09:29 XR chest 1V portable CLINICAL HISTORY: Chest pain. COMPARISON STUDY: Chest CT November 22, 2021. Chest radiograph December 12, 2021. FINDINGS: There are median sternotomy wires and mediastinal surgical clips. Lung volumes are normal. Lungs are clear. There is no pneumothorax or pleural effusion. Cardiac size is normal. Mediastinal contours are normal. There is no evidence for pulmonary edema. IMPRESSION: No acute cardiopulmonary findings. ACT 112: Negative or not required by law. Electronically signed by: Carlos Ozuna M.D. 01/21/2022 10:[address] 01/21/22 09:52 CT OF THE CERVICAL SPINE WITHOUT CONTRAST CLINICAL HISTORY: AML, back pain, BLE weakness, near syncope COMPARISON STUDY: No previous studies for comparison. TECHNIQUE: Helical axial images of the cervical spine were obtained without IV contrast. Sagittal and coronal reconstructions were viewed. Automated exposure control was utilized for the study. A dose lowering technique was utilized adhering to the principles of ALARA. FINDINGS: There is reversal of the normal cervical lordosis. Vertebral body heights are maintained. No acute cervical spine fracture or subluxation is present. There is no prevertebral edema. Facet joints are intact. Moderate multilevel degenerative changes are present. Thoracic spine CT will be reported separately. Incidental note is made of small groundglass nodular opacities within the lung apices. IMPRESSION: No acute cervical spine fracture or subluxation. ACT 112: Negative or not required by law. Electronically signed by: Carlos Ozuna M.D. 01/21/2022 11:[address] 01/21/22 09:52 CT lumbar spine wo con CLINICAL HISTORY: AML, back pain, BLE weakness, near syncope COMPARISON STUDY: None available at time of interpretation due to PACS downtime. TECHNIQUE: Axial images of the lumbar spine were obtained. Sagittal and coronal reconstructions were viewed. No intravenous contrast was administered. Automated exposure control was utilized for the study. A dose lowering technique was utilized adhering to the principles of ALARA. FINDINGS: No acute lumbar spine fracture is present. Vertebral body heights are maintained. Severe multilevel facet arthrosis is present. There is mild multilevel disc space narrowing and osteophytosis. Mild anterolisthesis of L4 and L5 is due to facet arthrosis. A lucent lesion within L1 is likely benign. A cyst within the upper pole the right kidney is incidentally noted. 3.6 cm infrarenal abdominal aortic aneurysm is present. Central canal and neural foramen are suboptimally assessed given CT technique. IMPRESSION: 1. No acute lumbar spine fracture or subluxation. 2. 3.6 cm infrarenal abdominal aortic aneurysm. ACT 112: Negative or not required by law. Electronically signed by: Carlos Ozuna M.D. 01/21/2022 12:[address] 01/21/22 09:52 CT OF THE THORACIC SPINE CLINICAL HISTORY: AML, back pain, BLE weakness, near syncope COMPARISON STUDY: None available at time of interpretation due to PACS downtime. TECHNIQUE: Helical axial images of the thoracic spine were obtained. Sagittal and coronal reconstructions were viewed. Automated exposure control was utilized for the study. A dose lowering technique was utilized adhering to the principles of ALARA. FINDINGS: Calcified mediastinal and bilateral hilar lymph nodes are noted. Mildly enlarged right paratracheal lymph node is noted. Cardiomegaly is noted. There is a cyst within the upper pole of the right kidney. Innumerable small groundglass nodules throughout the lungs are present. Due to PACS downtime, comparison to prior chest CT cannot be made. No acute thoracic spine fracture is noted. A T2 sclerotic lesions probably benign. A mild compression deformity of the superior plate of T7 is likely old. There is no acute thoracic spine fracture. Central canal and neural foramen are suboptimally assessed by CT. There is moderate osteophytosis of the thoracic spine. IMPRESSION: 1. No acute thoracic spine fracture or subluxation. 2. Old mild T6 compression deformity. 3. Suboptimal evaluation of the central canal and neural foramen given CT technique. 4. Mild mediastinal lymphadenopathy. This is probably benign but can be assessed on subsequent exams to ensure stability. Innumerable ground glass nodules throughout the lungs can also be assessed on that study. ACT 112: Negative or not required by law. Electronically signed by: Carlos Ozuna M.D. 01/21/2022 11:[address] 01/21/22 09:56 CT OF THE HEAD WITHOUT CONTRAST CLINICAL HISTORY: AML, BLE weakness, near syncope COMPARISON STUDY: Head CT December 12, 2021. TECHNIQUE: Helical axial images of the head were obtained without IV contrast. Automated exposure control was utilized for the study. A dose lowering technique was utilized adhering to the principles of ALARA. FINDINGS: No acute intracranial hemorrhage, midline shift or mass effect is present. The ventricular system is unremarkable. The basal cisterns are patent. Appearance of the brain is unchanged. No extra-axial collections are present. There are no findings to suggest acute dural sinus thrombosis or acute territorial infarct. There is no acute calvarial fracture. There is minimal sinus mucosal thickening. IMPRESSION: No acute intracranial findings. ACT 112: Negative or not required by law. Electronically signed by: Carlos Ozuna M.D. 01/21/2022 10:[address] 01/22/22 13:21 CT chest diagnostic wo con CT DOSE: 633.20 mGy.cm CLINICAL HISTORY: 76 years-old Male with pulm nodules, fevers,assess for pneumonia. Acute fever with possible pneumonia. Follow-up study in a patient w ith history of pulmonary nodules. TECHNIQUE: Multiaxial CT images of the chest were performed without contrast. A dose lowering technique was utilized adhering to the principles of ALARA. COMPARISON: Chest CT 11/22/2021 FINDINGS: No thyroid nodule. Calcified mediastinal and hilar lymph nodes are redemonstrated. Subcarinal lymph nodes measure up to 1.5 cm. Right paratracheal lymph node on image 77 measures 1.2 cm. Findings are unchanged. No new or progressive lymphadenopathy. Cardiomegaly without pericardial effusion. Prior median sternotomy and CABG with extensive [place] coronary artery calcifications. No thoracic aortic aneurysm. Dilation of the pulmonary arteries suggestive of pulmonary arterial hypertension. Respiratory motion artifact limits evaluation of the lungs. No pneumothorax. Trace left pleural effusion. Stable 6 mm solid nodule of the right upper lobe on image 121. Multisegmental bilateral distribution of centrilobular micronodules. Stable 7 mm groundglass nodule of the superior segment left lower lobe on image 90. Stable 6 mm groundglass nodule of the right upper lobe, image 82. Central airways appear patent. No acute process of the imaged upper abdomen. Unremarkable soft tissues. Degenerative changes of the shoulders and spine. IMPRESSION: 1. The study is degraded by respiratory motion artifact. 2. Diffuse bilateral centrilobular micronodules are similar in appearance to the 11/22/2021 exam compatible with an infectious or inflammatory pneumonitis. The patient also has stable enlarged mediastinal and hilar lymph nodes. Correlate clinically to exclude sarcoidosis. 3. Stable 6 mm solid nodule of the right upper lobe with unchanged subcentimeter right upper lobe and superior segment left lower lobe groundglass nodule measuring up to 7 mm. 4. Cardiomegaly with prior median sternotomy and CABG. ACT 112: Negative or not required by law. Dictated: 01/22/2022 5:15 PM Transcribed: 01/22/2022 5:50 PM Pilar [id number] [email or web address] Electronically signed by: Garcia Vaca M.D. 01/22/2022 6:25 PM 01/23/2022 ECHOCARDIOGRAM LV systolic function normal. no regional wma Moderate concentric LVH EF 60-65% Moderate to severe valvular aortic stenosis, mild mitral regurgitation, no valvular vegetation identified. Compared to study 07/25/21, no significant change Head CT 01/27/22 15:[address] DOSE: 994.86 mGycm HISTORY: headaches, severe thrombocytopenia TECHNIQUE: Multiaxial CT images of the head were performed without the use of intravenous contrast. Automated exposure control was utilized for this study. A dose lowering technique was utilized adhering to the principles of ALARA. Comparison: Head CT 01/21/2022. Findings: Moderate mucosal thickening within the right maxillary sinus with partial opacification of the right ethmoid air cells. This has progressed in the interval. No fluid levels within the paranasal sinuses. The mastoid air cells are clear. The calvarium and skull base are intact. There is no mass, hematoma, midline shift, acute infarct. White matter hypodensity is nonspecific but suggestive of microvascular ischemic change. The ventricles and sulci demonstrate mild age-related involutional changes. Impression: 1. No acute intracranial abnormality. 2. Right paranasal sinus disease which has slightly progressed in the interval ACT 112: Negative or not required by law. Electronically signed by: Zafar Anne M.D. 01/27/2022 4:32 PM Hospital Course (1) Bacteremia: Bacteremia/septicemia, POA 2nd to coag neg staph source - likely the lower sacral region ulceration repeat blood cultures 01/22 and 01/23 NEGATIVE does not have a port or hardware echo negative for SBE appreciate telehealth ID consult & recs * cont IV ancef 2gm q8h with stop date of 02/05/22 * us-guided peripheral IV placed 01/30 * /patient comfortable with plan for home IV abx * CM arranged for home health service with abx infusion company. * Will have labs M/W/F and close f/u Dr Burgos and continue to hold oral chemo until follow up discussions * Will need repeat blood cultures 3 days following completion of antibiotics, on 02/08. Will need drawn at hospital as home health not able to draw these Had remained inpatient yesterday for unit PRBC, given unit of platelets prior to d/c for platelets ~13 on AM CBC Continued transfusions in follow up with heme/onc pending labs social work assistance appreciated CRP still high - 22 (range during stay 19-25), procal negative on repeat. Discussed elevated CRP w/ heme/onc, likely ongoing CRP elevation due to AML itself picking up this afternoon to continue IV abx infusions. Hospital bed may/may not be approved. If not approved, CM ensured able to rent for 140-150$ a month for ease at home as patient likley to sleep on recliner in meantime (would like to prevent worsening sacral wound given likely source) (2) Pancytopenia: Patient admitted with antineoplastic induced pancytopenia and generalized weakness. Weakness secondary to symptomatic anemia but also secondary to bacteremia. With hemoglobin 7.0 on admission, platelets 11, and WBC count severely low at 0.1 with neutropenia. With fevers at home to 100 for a couple of weeks and then high spiking fevers up until 01/23/22. High fevers likely from [employer] bacteremia. s/p 1 unit PRBCs on 01/21 s/p 1 unit of platelets - transfusion stopped just before completion due to 20 point drop in blood pressure - no evidence of transfusion reaction however he then tolerated full platelet transfusion on 10/10 s/p another unit of PRBCs & apheresed platelets on 01/25 s/p platelets 01/27 s/p platelets 01/30 Hb <7.5 on 01/31, additional 1u PRBC ordered Repeat CBC stable on AM labs, plt low and s/p platelet this AM 02/01 prior to d/c Continue neutropenic precautions No role for Neupogen in the setting of AML Continue prophylactic acyclovir, voriconazole, and levofloxacin --- QTc on EKG about 500msec HSV culture from sacral rash negative Dr Burgos will be checking labs MONDAYS, WEDNESDAYS, FRIDAYS as outpatient with transfusional support as needed spoke with case management (Charlotte Catalan) - home health can hopefully draw these at home and then get the labs to [facility] [place] for Dr Burgos's review --> per Dr Burgos, M/W/F CMP, CBC and initial ordered. To order blood cultures outpatient (3) Headache: resolved CT head 01/27 negative for ICH or acute findings (4) Sepsis: As above improved clinically with repeat blood cx's negative on 01/22 and 01/23 ID sec reporting consultant recommends repeat blood cultures 3 days post completion of IV ancef which would be mid-week next week, discussed with patient. Order in system when able to have drawn (5) Symptomatic anemia: Tx as above, multiple PRBC/platlets provided during inpatient stay B12 level in November was <200 -- remains on B12 supplementation Folate wnl Ferritin >5000 in November c/w acute phase reactant (6) Rhabdomyolysis: Patient's CK was >3000 upon admission. CPK normalized cause of rhabdo... statin induced? paraneoplastic from AML? 2nd to chemo? statin has been stopped; discontinued at discharge (7) Pulmonary nodules: Noted to have multiple tiny nodules on thoracic spine CT Checked chest CT which also shows nodules and mediastinal and hilar lymphade nopathy-noted to be present on previous CT chest in 11/2021 Initially received cefepime and vancomycin for pneumonia; vanco d/c, and after multiple days of cefepime it was stopped He likely did not have pneumonia, however Consulted pulmonology -- they advised that since nodules and lymphadenopathy have been stable since CT scan from November, likely not related to chemotherapy, but is at risk for opportunistic infections. Pulmonary recommends repeat CT chest in 8 weeks to reassess --> appt being arranged. F/u pulm 8 weeks on d/c instructions as well Cont prophylactic levaquin, voriconazole (8) Hypokalemia: replaced resolved (9) AML (acute myeloblastic leukemia): Holding venetoclax due to ongoing infection and low blood counts Appreciate oncology consultation and recs Daily CBC while inpatient Neutropenic precautions Transfusional support as needed Targets - keep platelets >15; keep Hb >7.5 Last decitabine was 10+ days ago Dr Burgos states that current pancytopenia/counts would not preclude him from d/c from the hospital he will have blood work M/W/F upon discharge every week with outpatient transfusional support Transfuse 1 unit of PRBCs 01/31, platelets on 02/01 low-grade temps (37.5-38) often experienced early evening/night-time are likely due to AML elevated CRP also likely due to AML (10) Sacral wound: Appreciate wound care nurse consult suspected to be the source of bacteremia HSV culture negative cont local wound care with optifoam (wound care saw again 01/31) (11) Transaminitis: Secondary to rhabdomyolysis? Secondary to liver involvement from AML? Statin induced? other? regardless of etiology the ast/alt were nearly normal on most recent bloodwork repeat LFTs today wnl (12) Elevated troponin: Likely demand ischemia secondary to acute infection and symptomatic anemia Echocardiogram -- preserved EF, neg wall motion abnormalities, mod-severe No ischemic symptoms (13) Dyslipidemia: hold statin due to rhabdo would not resume statin at discharge (14) Hypertension: cont metoprolol succinate 100mg daily BPs acceptable , 138/78 prior to discharge (15) Benign enlargement of prostate: no LUTS at this time (16) Arteriosclerotic coronary artery disease: With a history of CABG previously Discontinued aspirin when started chemotherapy, discontinuing statin as above Continued Toprol-XL No ischemic symptoms even in face of anemia, etc (17) Aortic stenosis: Moderate-severe aortic stenosis no symptoms no CHF Monitor recent echo without SBE (18) Mood disorder: patient admits to feeling down but denies overt depression watch carefully for development of full-blown depression - low threshold to begin SSRI or remeron will need continued outpatient monitoring (19) Hyponatremia: lowest Na level 132 again Na level 134 urine Na is nearly 100 urine osm 450s serum osm low SIADH? cont NaCl tabs 1gm BID -- continued rx at d/c and monitoring labs closely consider f/u nephro if continued issue/repeat urine studies (20) Prolonged QT interval: likely 2nd to voriconazole & levaquin use EKG today with QTc 500msec stable mag/k/ca wnl no arrhythmias seen during the stay (21) Tachycardia: persistent, present since 01/23/22 AM his fevers began that same morning tachycardia could be manifestation of residual/resolving bacteremia/septicemia checked TSH -- wnl anemia could be contributing NO pulmonary symptoms; O2 sats wnl -- doubt PE, defer on CTA chest no significant pain no anxiety no dehydration suspect lingering SIRS causing the tachycardia HRs today actually better in the 90s no additional Rx or work-up at this time Plan DVT prophylaxis - SCDs only given anemia, no suri bleeding. anemia from AML PT, OT evals appreciated -- ok for home Continue IV ancef to complete course, close monitoring of labs and f/u heme/oncology at dischage will need repeat CT chest in 8 weeks Total Time Total Time Spent Total Time Spent (In Minutes): 70 Discharge Plan Discharge Items Patient Disposition: Home - Home Health Services Reason For Visit: AML Discharge Diagnosis: Bacteremia, Wound Goals: You have been hospitalized for an acute medical problem. During your stay at [facility], we have made an effort to correct the problem that brought you to the hospital while keeping you as comfortable as possible. Medications were used to bring your condition under control and your discharge instructions will include directions for any medications you should take after leaving the hospital. Please make sure you see your Primary Care Provider as part of your follow up plan. Activity: As commented below Non-emergency contact: Primary Care Provider, Oncologist and Enrollment Eligibility Representative Call non-emergency contact if: you have any medication questions, your symptoms worsen, your pain is not controlled and you have a fever Follow-up/Referrals: Janelle Dodd PA-C [Primary Care Provider] - 02/09/22 11:00 am Darrell Best MD [Physician] - (9-10 WEEKS) Elaine Burgos MD [Physician] - Diet: Regular Ambulatory Orders: Complete Blood Count no Diff (Routine) Timeframe: 20220203 Location: Determined by Patient Ordered By: Milka Fenton Comprehensive Metabolic Panel (Routine) Timeframe: [id number] Location: Determined by Patient Ordered By: Milka Shook Attending Provider Instructions: You have been hospitalized for bacteremia (infection into your blood), which was likely from a sacral wound. Consultation with infectious disease and pulmonary (for lung nodule findings) was had while inpatient and it is recommended to continue Ancef in the IV through 02/05 to complete these antibiotics. Home health will draw labs on Sunday, Sunday, Sunday to ensure your counts remain stable and Dr Burgos will follow up on these. It is also recommended to have repeat blood cultures drawn 3 days after your antibiotics have been completed. THESE SHOULD BE DRAWN ON 02/08 AND WILL LIKELY NEED TO BE COMPLETED AT THE INPATIENT LAB. We have STOPPED your Rosuvastatin (Crestor) due to elevated liver enzymes and muscle breakdown. You should continue to home you Venclexta due to ongoing infection and should discuss with Dr Burgos about when to restart this. Home health has been arranged for home antibiotics and therapy. Please follow up with your primary care in the next week to monitor your progress. The lung doctor also had seen you during the hospital and they recommend that you have a repeat imaging of your chest in 8 weeks to make sure these findings are stable. Please return to the ER with chest pain, worsened shortness of breath, worsening fevers, or any other symptoms concerning for you. Pending Studies at Discharge: No Stand-Alone Forms: My [facility], Smoking Cessation Medications and DC Order Prescriptions: New cefazolin 1 gram recon soln 2 g IV Q8H 6 Days Qty: 18 0RF Rx Instructions: stop date - after 02/05/22 doses. sodium chloride 1 gram Tablet 1 g PO BID Qty: 14 0RF melatonin 3 mg Tablet 6 mg PO HS Qty: 14 0RF Continued voriconazole [Vfend] 200 mg tablet 200 mg PO BID Qty: 14 0RF allopurinol 300 mg tablet 300 mg PO QAM Qty: 90 3RF ascorbic acid (vitamin C) 500 mg tablet 500 mg PO BID nitroglycerin 0.4 mg tablet, sublingual 0.4 mg SL Q5M PRN (Reason: Chest Pain) Qty: 1 Rx Instructions: NEEDED FOR CHEST PAIN : ONE TABLET UNDER THE TONGUE EVERY 5 MINUTES UP TO THREE DOSES. amlodipine 2.5 mg tablet 2.5 mg PO QAM metoprolol succinate 100 mg tablet extended release 24 hr 100 mg PO QAM polyethylene glycol 3350 17 gram Powder In Packet 17 g PO DAILY PRN (Reason: Constipation) cyanocobalamin (vitamin B-12) 1,000 mcg Capsule 1,000 mcg PO QAM Venclexta 100 mg tablet 100 mg PO QAM ondansetron 4 mg Tablet,Disintegrating 4 mg PO Q6H PRN (Reason: Nausea) acyclovir 400 mg Tablet 400 mg PO BID Qty: 14 0RF levofloxacin 500 mg Tablet 500 mg PO QAM Qty: 7 0RF Discontinued rosuvastatin [Crestor] 40 mg tablet 40 mg PO DAILY Discharge Orders: Discharge Order (Routine); Ordered 02/01/22 Ordered By: Milka Queen/Other Patient Handouts: What Is Leukemia?, Immunocompromised Patients Dc Admission Data Admit Date/Time: 01/21/22 11:50 Attending Provider: Jesus Yang Admit Provider: Flaco Estrada Primary Care Provider: Janelle Dodd Other Providers: Flaco Estrada ; Elaine Burgos ; Jony Valdes ; Amairani Hunt Coding Level of Care Code D/C DAY MANAGEMENT >30 MINS Diagnoses Bacteremia R78.81 Pancytopenia D61.818 Headache R51.9 Sepsis A41.9 Symptomatic anemia D64.9 Rhabdomyolysis M62.82 Pulmonary nodules R91.8 Hypokalemia E87.6 AML (acute myeloblastic leukemia) C92.00 Sacral wound S31.000A Transaminitis R74.01 Elevated troponin R77.8 Dyslipidemia E78.5 Hypertension I10 Benign enlargement of prostate N40.0 Arteriosclerotic coronary artery disease I25.10 Aortic stenosis I35.0 Mood disorder F39 Hyponatremia E87.1 Prolonged QT interval R94.31 Tachycardia R00.0
[2022-02-01] MEDS: levoFLOXacin 500 MG TAB PO SCH (11:46)
== END 2022-02-01 13:36 | disposition home health service (06) | DRG 871 ==
LOC: ED 09:05 → EDINP 11:50 → SUATTDRO 11:50 → 2W 14:26
DX: I65.29 Occlusion and stenosis of unspecified carotid artery; Z88.8 Allergy status to other drugs, medicaments and biological substances; I25.2 Old myocardial infarction; T36.8X5A Adverse effect of other systemic antibiotics, initial encounter; N40.0 Benign prostatic hyperplasia without lower urinary tract symptoms; R94.31 Abnormal electrocardiogram [ECG] [EKG]; R51.9 Headache, unspecified; I10 Essential (primary) hypertension; I24.8 Other forms of acute ischemic heart disease; E83.39 Other disorders of phosphorus metabolism; Z95.1 Presence of aortocoronary bypass graft; M62.82 Rhabdomyolysis; R53.1 Weakness; R74.01 Elevation of levels of liver transaminase levels; R68.84 Jaw pain; E87.6 Hypokalemia; L89.152 Pressure ulcer of sacral region, stage 2; C92.00 Acute myeloblastic leukemia, not having achieved remission; E87.1 Hypo-osmolality and hyponatremia; H53.149 Visual discomfort, unspecified; I35.0 Nonrheumatic aortic (valve) stenosis; Z87.891 Personal history of nicotine dependence; R59.0 Localized enlarged lymph nodes; Z79.899 Other long term (current) drug therapy; E78.5 Hyperlipidemia, unspecified; F39 Unspecified mood [affective] disorder; Z88.5 Allergy status to narcotic agent; Z95.5 Presence of coronary angioplasty implant and graft; Z79.2 Long term (current) use of antibiotics; D61.810 Antineoplastic chemotherapy induced pancytopenia; I25.10 Atherosclerotic heart disease of native coronary artery without angina pectoris; R91.8 Other nonspecific abnormal finding of lung field; A41.2 Sepsis due to unspecified staphylococcus

== ENCOUNTER 2022-02-27 14:17 | Observation (INO) ==
--- NOTE | 2022-02-27 14:40 | Emergency Department Note ---
Impression & Plan Syncope, Pancytopenia, Acute dehydration ED Provider Note NAME: ELIAZAR JOYCE AGE: 76 SEX: M : 1945 ARRIVES VIA: Ambulance INFORMANT: Patient, ED PROVIDER(S): Tate Lambert MD Chief Complaint: Syncope HPI: Patient did have an echo completed on February 04 which shows normal left ventricular systolic function with no regional wall abnormalities. EF is 60 to 65%. Patient does have moderate to severe valvular aortic stenosis and mild mitral regurg. Patient was admitted for bacteremia in January. Patient did have negative cultures on 01 22 and 1009. Patient does have a sacral ulceration. Patient does have a history of leukemia for which she has been treated and following with Dr. Burgos. Patient does have a history of pancytopenia patient was at his doctor's office today when he at lightheaded dizzy and passed out. Patient states that he got very lightheaded and dizzy. Patient states that he has had this issue in the past. Patient states that is been ongoing since he was a child. His last syncopal event was 2 months ago. Patient denies any chest pain shortness of breath nausea or vomiting. The patient has not been on chemotherapy for 3 weeks. Patient denies any falls or trauma. Patient denies any head or neck pain. There is no reported seizure-like activity and the patient denies any tongue biting or incontinence. No history of seizures. Patient does have a prior history of bacteremia but states that he is feeling otherwise quite well. The patient states that he did eat breakfast this morning but had his appointment at 1 and not eat lunch. The patient does have a pending appointment tomorrow for transfusion. Patient states that he does have an issue with antibiotics where he needs to get the blood from [place]. ROS: See HPI for pertinent positives and negatives. A total of 10 systems were reviewed and otherwise negative. Past medical history: See below Surgical history: See below Social history: See below Physical Exam: GENERAL: NAD, wearing a mask, non-toxic. EYE EXAM: Normal conjunctiva. PERRL, no anisocoria and EOM's grossly intact w/o pain. NECK: Supple, no nuchal rigidity, no adenopathy, non-tender. No signs of meningismus. FROM of the neck with good chin to chest and neck extension. No stridor. LUNGS: Clear to auscultation. Normal chest wall mechanics. HEART: NSR, systolic ejection murmur noted. ABDOMEN: Abdomen soft, non-tender, normo-active bowel sounds, no masses, no rebound or guarding. BACK: No CVA TTP. SKIN: No rashes and no bruising. UPPER EXTREMITIES: Upper extremities are grossly normal. LOWER EXTREMITIES: Grossly normal, no edema. Venous stasis changes noted. No calf pain or erythema. NEURO EXAM: A&O x3, cranial nerves II-XII grossly intact, normal speech, moves all 4 extremities. Differential diagnoses: Vasovagal event, dehydration, infection, hypoglycemia, electrolyte abnormalities, cardiac sources, intracerebral event, pulmonary embolism, seizure, toxicologic, neurologic, as well as other pathologies. Course: Patient was seen and evaluated the bedside. Full history physical exam was performed. EKG interpreted by me Normal sinus rhythm, rate of 81, wide QRS, prolonged QTC, left axis deviation, right bundle branch block pattern. Bifascicular block. Patient's overall morphology appears grossly unchanged from comparison January 31, 2022. Imaging Studies: See Below Cardiac monitoring: An order was placed for continuous cardiac monitoring. The monitor shows a rate of 83 with sinus rhythm. MDM: Patient did have blood work completed which shows leukopenia thrombocytopenia and anemia. Patient's hemoglobin is 7.5. Patient's hemoglobin on the was about the same. Patient was ordered IV fluids. The patient was ordered 500 cc as the patient does have a prior history of aortic stenosis. Patient was also given something to eat something to drink. The patient tolerated this without issue. I did review the patient's blood work from earlier today. The patient was noted to have normal kidney function and electrolytes. BSG 130. I did add a magnesium troponin and TSH. These are not abnormal. I did discuss to the patient that I would recommend that he stay with the patient is adamant about refusing any additional care. The patient understands the risks including but not included to repeat events disability pain and/or dying. Patient was able to reiterate these risks. Patient was going to leave AGAINST MEDICAL ADVICE but after discussing this with his he was willing to stay. I did speak the on- call hospitalist Dr. Graham and the patient was admitted to the medicine service. Past Med/Surg History Medical History AML (acute myeloblastic leukemia) Aortic stenosis Arteriosclerotic coronary artery disease Benign enlargement of prostate Carotid artery plaque Dyslipidemia Hypertension Past myocardial infarction Tachycardia Tubulovillous adenoma of colon Surgical History History of cardiac cath cath stent 1 first obtuse marginal branch, type bare metal cath stent 2 first saphenous vein graft, type drug-eluting History of colonoscopy History of coronary artery bypass graft x 3 History of hemorrhoidectomy S/P CABG x 3 Family History Brother Coronary heart disease 5 brothers Father Myocardial infarction Denies family history of Ovarian cancer Prostate cancer Breast cancer Colorectal cancer Lung disease Social History Smoking Status: Never smoker Tobacco Type: Cigarettes Age Started Using Tobacco: 14; Age Quit Using Tobacco: 21; packs per day: 1; Second Hand Exposure: No; Hx Alcohol Use: No Hx Substance Use: No Preferred Language: Mosotho Communication Ability: Effective Visual Impairment: Limited Hearing Ability: Use of Hearing Aid Environmental Resource Specialist Required: No Beliefs That Will Affect Care: None marital status: Current Living Situation: Spouse Current Living Situation Comment: Lives with in a house has a hospital bed downstairs current occupational status: employed 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 How many Children do You have: 4 Feels Safe at Home: Yes Childhood Exposure to Second-Hand Smoke: No caffeine: Yes (cup of coffee in morning ) Dental Care, Regularly: No Physical Activity Frequency: Daily Seatbelt Use: always Sunscreen Use: Yes Assistive Devices: None Allergies Allergies Allergy/AdvReac Type Severity Reaction Status Date / Time diphenhydramine AdvReac Severe ITCHING Verified 02/27/22 12:54 [From Benadryl] losartan AdvReac Intermediate FATIGUE, Verified 02/27/22 12:54 CHEST PAIN oxycodone [From Percocet] AdvReac Intermediate Confusion Verified 02/27/22 12:54 lisinopril AdvReac Mild FATIGUE Verified 02/27/22 12:54 Home Meds Home Medications Medication Instructions Recorded Confirmed ascorbic acid (vitamin C) 500 mg 500 mg PO BID 02/11/19 02/27/22 tablet nitroglycerin 0.4 mg sublingual 0.4 mg sublingual Q5M PRN Chest 02/11/19 02/27/22 tablet Pain #1 tab amlodipine 2.5 mg tablet 2.5 mg PO QAM 12/12/21 02/27/22 cyanocobalamin (vitamin B-12) 1,000 mcg PO QAM 12/12/21 02/27/22 1,000 mcg capsule metoprolol succinate 100 mg 100 mg PO QAM 12/12/21 02/27/22 tablet,extended release 24 hr ondansetron 4 mg disintegrating 4 mg PO Q6H PRN Nausea 12/12/21 02/27/22 tablet polyethylene glycol 3350 17 gram 17 g PO DAILY PRN Constipation 12/12/21 02/27/22 oral powder packet venetoclax 100 mg tablet 100 mg PO QAM 12/12/21 02/27/22 (Venclexta) amoxicillin 500 mg-potassium 1 tab PO BID 02/27/22 02/27/22 clavulanate 125 mg tablet (Augmentin) Previous Rx's Medication Instructions Recorded acyclovir 400 mg tablet 400 mg PO BID #14 tabs 12/15/21 levofloxacin 500 mg tablet 500 mg PO QAM #7 tabs 12/15/21 voriconazole 200 mg tablet (Vfend) 200 mg PO BID #14 tabs 01/19/22 allopurinol 300 mg tablet 300 mg PO QAM #90 tabs 02/01/22 melatonin 3 mg tablet 6 mg PO HS #60 tabs 02/10/22 sodium chloride 1 gram tablet 1 g PO BID #60 tabs 02/22/22 Results & Data (ED) Vital Signs Vital Signs - 24 hr 02/27/22 14:21 02/27/22 14:28 02/27/22 14:09 Temperature 36.8 C Temperature Source Oral Pulse Rate 84 Pulse Rate [Apical] Respiratory Rate 16 18 Respiratory Effort / Characteristics Non-Labored Spontaneous Non-Labored Respiratory Depth Normal Normal Respiratory Pattern Regular Blood Pressure 108/59 L Blood Pressure [Left Arm] Blood Pressure Mean 75 Blood Pressure Mean [Left Arm] Blood Pressure Position Lying Pulse Oximetry 98 Oxygen Delivery Method Room Air Room Air Fraction of Inspired Oxygen 100 Sepsis Recent Fever Within 48 Hours No Sepsis New/Unexplained Change in Mental Status N/A Sepsis Action Taken by Nursing No Action Required 02/27/22 14:48 02/27/22 16:09 Temperature Temperature Source Pulse Rate Pulse Rate [Apical] 83 Respiratory Rate 18 Respiratory Effort / Characteristics Respiratory Depth Respiratory Pattern Blood Pressure Blood Pressure [Left Arm] 110/68 Blood Pressure Mean Blood Pressure Mean [Left Arm] 82 Blood Pressure Position Pulse Oximetry 98 Oxygen Delivery Method Room Air Fraction of Inspired Oxygen Sepsis Recent Fever Within 48 Hours Sepsis New/Unexplained Change in Mental Status Sepsis Action Taken by Shelter Medications Current Medication List: was personally reviewed by me Laboratory Data Attestation: I reviewed the patient's lab results. Lab Results 02/27/22 02/27/22 Range/Units 14:24 14:24 Magnesium 1.7 (1.7-2.4) mg/dl Troponin I High Sens 8.5 D (0-20) pg/ml TSH 2.650 (0.300-4.500) uIu/ml Administered Medications Discontinued Medications Sodium Chloride (Nss) 500 mls @ 999 mls/hr IV .Q31M CHIKI Stop: 02/27/22 15:30 Last Infusion: 02/27/22 16:18 Dose: 0 mls/hr Documented By: Admin: 02/27/22 14:53 Dose: 999 mls/hr Documented By: SR Discharge Plan Visit Data Chief Complaint: Syncope ED Provider: Tate Lambert Discharge Problem: Syncope, Pancytopenia, Acute dehydration Patient Disposition: Against Medical Advice Condition: Good Discharge Instructions Bret/Other Patient Handouts: ED [facility] Syncope (Fainting) Activity Restrictions/Additional Instructions: Please return to the emergency department if you have any worsening symptoms. Forms Stand Alone Forms: My [facility] Prescriptions Prescriptions: No Action voriconazole [Vfend] 200 mg tablet 200 mg PO BID Qty: 14 0RF allopurinol 300 mg tablet 300 mg PO QAM Qty: 90 3RF melatonin 3 mg tablet 6 mg PO HS Qty: 60 0RF sodium chloride 1 gram tablet 1 g PO BID Qty: 60 0RF amoxicillin-pot clavulanate [Augmentin] 500-125 mg tablet 1 tab PO BID ascorbic acid (vitamin C) 500 mg tablet 500 mg PO BID nitroglycerin 0.4 mg tablet, sublingual 0.4 mg SL Q5M PRN (Reason: Chest Pain) Qty: 1 Rx Instructions: NEEDED FOR CHEST PAIN : ONE TABLET UNDER THE TONGUE EVERY 5 MINUTES UP TO THREE DOSES. amlodipine 2.5 mg tablet 2.5 mg PO QAM Hold Instructions: low BP metoprolol succinate 100 mg tablet extended release 24 hr 100 mg PO QAM polyethylene glycol 3350 17 gram Powder In Packet 17 g PO DAILY PRN (Reason: Constipation) cyanocobalamin (vitamin B-12) 1,000 mcg Capsule 1,000 mcg PO QAM Venclexta 100 mg tablet 100 mg PO QAM ondansetron 4 mg Tablet,Disintegrating 4 mg PO Q6H PRN (Reason: Nausea) acyclovir 400 mg Tablet 400 mg PO BID Qty: 14 0RF levofloxacin 500 mg Tablet 500 mg PO QAM Qty: 7 0RF Referrals Referrals: Janelle Dodd, PAVianeyC [Physician Fitness Consultant] -
[2022-02-27] MEDS ORDERED: SODIUM CHLORIDE 0.9% 500 ML IV SCH (15:00)
[2022-02-27 15:25] LABS: Magnesium 1.7 mg/dl (1.7-2.4)
[2022-02-27 15:26] LABS: Troponin I High Sensitivity 8.5 pg/ml (0-20)
--- NOTE | 2022-02-27 16:58 | History & Physical Report ---
Date of Service February 27, 2022 Assessment & Plan (1) Syncope: Plan: -Admit to med/tele -Patient is currently afebrile, hemodynamically stable, and stable on RA -Patient's syncopal episode appears to be due to hypotension combined with his aortic stenosis, could also be related to his pancytopenia/anemia -Had symptoms similar to orthostasis/vaso-vagal episode and was apparently dizzy this am, did take his AM amlodipine and metoprolol this am -No acute ECG changes noted, TSH and Troponin WNL, will get random cortisol level and orthostatic vitals now -Hold amlodipine but will continue metoprolol for now to avoid rebound tachycardia -Continue to monitor on tele and pulse oximetry for now -Likely will need to hold Amlodipine on DC -AM CBC and CMP (2) Pancytopenia: Plan: -Patient with known hx of pancytopenia due to chemotherapy -Is being followed closely outpatient by Heme/onc with weekly labs -Hgb today is at 7.5, platelets at 31 with Neutrophils at 0.24 -Will order type/screen, irradiated PRBC's due to neutropenia with one unit given now and one kept on hand, obtained blood consent -Per Heme recs from last admission, should ideally keep Hgb > 7.5 and platelets > 15,000, will transfuse to keep Hgb > 8.0 due to his history of coronary bypass -No active signs of bleeding, continue to monitor platelets for now -Neutropenic precautions ordered -Continue prophylactic Levaquin, acyclovir, and voriconazole -Continue holding Venclexta for now with his pancytopenia and anemia -Monitor Am CBC with diff (3) Palpable mass of neck: Plan: -Has been worked up outpatient by hematology and currently on course of Augmentin which has caused significant improvement -Will continue Augmentin BID for now -Continue outpatient monitoring per PCP's note from today (4) Hyponatremia: Plan: -Currently stable -Continue sodium chloride tabs (5) AML (acute myeloblastic leukemia): Plan: -Followed closely by Heme/onc outpatient -Continue to hold Venclexta for now with his significant pancytopenia per heme/onc note on 02/22/22 (6) Aortic stenosis: Plan: -Last echo was on 01/23/22 showed mod-sevre and LVEF of 60-65% -Does not appear volume overloaded -Monitor volume status for now (7) Arteriosclerotic coronary artery disease: Plan: -Aspirin held when he started chemo, will continue to hold for now (8) Dyslipidemia: Plan: -Statin held last admission for rhabdo, continue to hold for now (9) Hypertension: Plan: -Hemodynamically stable -Hold amlodipine due to hypotension -Continue metoprolol for now -Will likely need to DC amlodipine prior to discharge Plan The patient was discussed with Dr. Graham at the time of the admission History of Present Illness Chief Complaint: Syncope Primary Care Provider: Dewayne Stout MD Jameson is a 76 year old male with a PMH significant for AML (follows with Heme/Onc), chemotherapy induced pancytopenia, HTN, CAD S/P [place] and 3 vessel bypass graft in 1997, BPH, hyponatremia, palpable neck mass who presented to the [facility] ED on 02/27/22 for syncope. Per chart review, the patient was recently admitted to [facility] from 01/21- 02/01/2022 for gram negative bacteremia, sacral wound, rhabdomyolysis, and symptomatic anemia. CPK normalized by discharge.The cause of his rhabdomyolysis was thought to be caused possibly by statin induced, paraneoplastic, or secondary to chemotherapy. Hematology consulted during his admission, Venetoclax was held due to significant pancytopenia. Has was transfused PRBCs and platelets. His blood cultures grew Staph epidermidis- felt to be secondary to sacral wound. Infectious disease was consulted and recommended he continue on IV ancef 2gm q8h with a stop date of 02/05. Per his PCP note from today, he previously had a workup of his neck mass including US which was nonspecific, differential includes abscess, hematoma, or abnormal lymph nodes. Since being treated with Augmentin by Hematology he has clinically improved, his PCP is planning to follow up with serial imaging to ensure it continues to improve/resolve. In the ED the patient was found to be afebrile, hemodynamically stable, and stable on RA.Labs were remarkable for pancytopenia including WBC of 0.72, RBC of 2.46, Hgb of 7.5, platelets of 31, absolute neutrophils of 0.24, stable renal function and electrolytes, LFTs WNL, high sensitivity trop of 8.5, TSH of 2.65, and covid negative. At the time of the exam the patient was resting comfortably in bed in no acute distress. He states that he had a syncopal episode while at his PCP's office earlier today when he went for his follow-up visit. He states that he was sitting in a chair in the doctor's office when he felt lightheaded and then dizzy. He states he became sweaty and then does not remember when happened next. He states he currently feels good, which is why he initially wanted to leave AMA from the ED. When asked, he states he was feeling dizzy/lightheaded this morning when getting ready for the doctor's office this am. He sat down and rested for a few minutes and his symptoms resolved. He states that he has a few days left of Augmentin which was prescribed by Hematology for his neck mass, he noted significant reduction in the size of the neck mass since starting Augmentin. When asked he states that he did take him AM meds, which included amlodipine and metoprolol prior to going to his PCP's office. He has been eating and drinking well, he ate breakfast his morning but did not have lunch prior to his PCP visit. He states that his previous sacral wound is completely healed, his checks it daily to make sure he is doing well. He completed his course of IV ancef and his peripheral IV was removed; he also confirms home health no longer comes as his wound has healed. I spoke to the patient regarding code status, he would like to be a Full Code. He does have a living will/POA. His son is his POA and would make decisions for him if he and his could not make decisions for himself. Please refer to Dr. Graham's Attestation for any changes to the patient's treatment plan Allergies Allergy/AdvReac Type Severity Reaction Status Date / Time diphenhydramine AdvReac Severe ITCHING Verified 02/27/22 17:11 [From Benadryl] losartan AdvReac Intermediate FATIGUE, Verified 02/27/22 17:11 CHEST PAIN oxycodone [From Percocet] AdvReac Intermediate Confusion Verified 02/27/22 17:11 lisinopril AdvReac Mild FATIGUE Verified 02/27/22 17:11 Home Medications Medication Instructions Recorded Confirmed Type ascorbic acid (vitamin C) 500 mg 500 mg PO BID 02/11/19 02/27/22 History tablet nitroglycerin 0.4 mg sublingual 0.4 mg sublingual Q5M PRN Chest 02/11/19 02/27/22 History tablet Pain #1 tab amlodipine 2.5 mg tablet 2.5 mg PO QAM 12/12/21 02/27/22 History cyanocobalamin (vitamin B-12) 1,000 mcg PO QAM 12/12/21 02/27/22 History 1,000 mcg capsule metoprolol succinate 100 mg 100 mg PO QAM 12/12/21 02/27/22 History tablet,extended release 24 hr ondansetron 4 mg disintegrating 4 mg PO Q6H PRN Nausea 12/12/21 02/27/22 History tablet polyethylene glycol 3350 17 gram 17 g PO DAILY PRN Constipation 12/12/21 02/27/22 History oral powder packet venetoclax 100 mg tablet 100 mg PO QAM 12/12/21 02/27/22 History (Venclexta) acyclovir 400 mg tablet 400 mg PO BID #14 tabs 12/15/21 02/27/22 Rx levofloxacin 500 mg tablet 500 mg PO QAM #7 tabs 12/15/21 02/27/22 Rx voriconazole 200 mg tablet (Vfend) 200 mg PO BID #14 tabs 01/19/22 02/27/22 Rx allopurinol 300 mg tablet 300 mg PO QAM #90 tabs 02/01/22 02/27/22 Rx melatonin 3 mg tablet 6 mg PO HS #60 tabs 02/10/22 02/27/22 Rx sodium chloride 1 gram tablet 1 g PO BID #60 tabs 02/22/22 02/27/22 Rx amoxicillin 500 mg-potassium 1 tab PO BID 02/27/22 02/27/22 History clavulanate 125 mg tablet (Augmentin) Past Med/Surg History Medical History AML (acute myeloblastic leukemia) Aortic stenosis Arteriosclerotic coronary artery disease Benign enlargement of prostate Carotid artery plaque Dyslipidemia Hypertension Past myocardial infarction Tachycardia Tubulovillous adenoma of colon Surgical History History of cardiac cath cath stent 1 first obtuse marginal branch, type bare metal cath stent 2 first saphenous vein graft, type drug-eluting History of colonoscopy History of coronary artery bypass graft x 3 History of hemorrhoidectomy S/P CABG x 3 Family History Brother Coronary heart disease 5 brothers Father Myocardial infarction Denies family history of Ovarian cancer Prostate cancer Breast cancer Colorectal cancer Lung disease Social History Smoking Status: Never smoker Tobacco Type: Cigarettes Age Started Using Tobacco: 14; Age Quit Using Tobacco: 21; packs per day: 1; Second Hand Exposure: No; Hx Alcohol Use: No Hx Substance Use: No Preferred Language: Cymro Communication Ability: Effective Visual Impairment: Limited Hearing Ability: Use of Hearing Aid Partition Setter Required: No Beliefs That Will Affect Care: None marital status: Current Living Situation: Spouse Current Living Situation Comment: Lives with in a house has a hospital bed downstairs current occupational status: employed 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 All systems have been reviewed and are otherwise negative. Physical Exam Physical Exam: Physical Exam: General: In no acute distress, stated age, chronically ill-appearing HEENT: Normocephalic, atraumatic, no scleral icterus, pupils around round, symmetrical, and reactive to light, moist mucus membranes, patient with large, firm mass on the right neck just inferior to the right mandible, mass is mobile and slightly tender to plaption Chest/Pulm: No respiratory distress, symmetrical chest expansion, clear breath sounds throughout Cardiac: RRR, systolic murmur from aortic stenosis noted Abdomen: Negative for ascites and bruising, normoactive bowel sounds, soft, non-tender to palpation throughout Musculoskeletal: Symmetrical and without signs of acute trauma, upper and lower extremities with full ROM, no atrophy, spasticity, or flaccidity Extremities: Radial, dorsalis pedis, and posterior tibial pulses are intact and symmetrical, no edema noted in the BL LE's Skin: Warm, dry, no signs of current sacral ulcer on exam Neuro: Alert and oriented to person, place, month, year, and president, no focal defects, CN II-XII tested and intact, finger to nose test negative, no tremors noted Psych: No acute distress, calm and cooperative during the exam Results & Data Results & Data ([facility]) Vital Signs (Past 12 Hours) Vital Signs Temp Pulse Pulse Resp BP BP Pulse Ox 02/27/22 16:09 83 18 110/68 98 02/27/22 14:48 02/27/22 14:09 18 02/27/22 14:28 36.8 C 84 16 108/59 L 98 02/27/22 14:21 O2 Del Method FiO2 02/27/22 16:09 02/27/22 14:48 Room Air 02/27/22 14:09 02/27/22 14:28 Room Air 02/27/22 14:21 Room Air 100 Laboratory Results Abnormal lab results 02/27/22 Range/Units 10:00 Crossmatch See Detail ECG Additional Comments: Poor data quality, interpretation may be adversely affected Normal sinus rhythm Right bundle branch block Left anterior fascicular block Bifascicular block Abnormal ECG When compared with ECG of 31-JAN-2022 09:27, No signifi cant change was found Code Status & VTE Plan Code Status Full code VTE Prophylaxis Plan VTE Prophylaxis will be ordered: Yes Supervising Physician Co-Signing Physician Notes Patient seen and examined, chart reviewed, case discussed with Brian Hurtado PA-C and I agree with the assessment and plan as above except as otherwise noted Labs and images reviewed Jameson Marshall is a 76-year-old male with a past medical history of AML, pancytopenia, AAS, MR, CABG, and sacral ulceration who presents with an episode of lightheadedness/dizziness/syncope. Patient was lightheaded and dizzy prior to passing out. He has had similar episodes since childhood, last event was a month or 2 ago. At time of assessment he is out of shape as of breath, chest pain, or nausea. He is pending a blood transfusion through heme-onc tomorrow, he chronically receives transfusion. He is neutropenic with a hemoglobin of 7.5 on admission. COVID is negative. Agree with syncopal work-up above, will type and screen and transfusion 1 unit of blood and place 1 on hold. Patient may be a difficult crossmatch due to pre-existing antibodies and need for irradiated blood. Hematology oncology consulted while patient is inpatient. No ACS, no ALYSSA on admission. Agree with work-up above. PG Care Time/CCT Total # of Minutes Spent Total Time Spent with Patient: Total time spent is greater than 50% in coordination of care (as documented) at patient's floor/unit and/or counseling patient: Coding Level of Care Code Established Pt INT OBSERVATION CARE 70M LVL 3 Patient Type Established History Comprehensive Exam Comprehensive Medical Decision Making High Complexity Diagnoses Syncope R55 Syncope type: unspecified Pancytopenia D61.818 Palpable mass of neck R22.1 Hyponatremia E87.1 AML (acute myeloblastic leukemia) C92.00 Aortic stenosis I35.0 Arteriosclerotic coronary artery disease I25.10 Dyslipidemia E78.5 Hypertension I10 (1) Syncope Syncope type: unspecified Qualified Code(s): R55 - Syncope and collapse
[2022-02-27] MEDS ORDERED: SODIUM CHLORIDE 0.9% 250 ML IV PRN (17:21)
[2022-02-27] MEDS ORDERED: ACETAMINOPHEN 325 MG TAB PO PRN (19:46)
[2022-02-27] MEDS: ACYCLOVIR 400 MG TAB PO SCH (20:30)
[2022-02-27] MEDS: AMOXICILLIN/CLAVULANATE 500 MG TAB PO SCH (20:31)
[2022-02-27] MEDS: ASCORBIC ACID 500 MG TAB PO SCH (20:32)
[2022-02-27] MEDS: SODIUM CHLORIDE 1 GM TABLET PO SCH (20:33)
[2022-02-27] MEDS: VORICONAZOLE 200 MG TABLET PO SCH (20:34)
[2022-02-27] MEDS ORDERED: MELATONIN 3 MG TAB PO SCH (21:00)
[2022-02-28 02:45] LABS: Albumin Globulin Ratio 0.8 (0.9-2); Albumin Level 2.6 gm/dl (3.4-5.0); BUN Creatinine Ratio 12.9 (10-20); Bilirubin,Total 0.4 mg/dl (0.2-1.0); Calcium 8.1 mg/dl (8.5-10.1); Est GFR (African American) 110.1 ml/min; Globulin 3.1 gm/dl (2.5-4.0); Potassium 3.7 mmol/L (3.5-5.1); Total Protein 5.7 gm/dl (6.0-8.3)
[2022-02-28 03:20] LABS: Hematocrit (blood only) 20.4 % (40.1-51.0); Hemoglobin 7.1 g/dl (14.0-18.0); Mean Corpuscular Hemoglobin 30.3 pg (25.0-34.0); Mean Corpuscular Hgb Conc 34.8 g/dL (32.0-36.0); Mean Corpuscular Volume 87.2 fL (80.0-100.0); Mean Platelet Volume 8.9 fL (9.4-12.4); Nucleated RBC # (auto) 0.04 K/uL (0-0); Nucleated RBC % (auto) 7.4 %; Platelet Count 21 K/uL (130-400); RDW Coefficient of Variation 12.7 % (11.5-14.5); RDW Standard Deviation 39.7 fL (36.4-46.3); Red Blood Count 2.34 M/uL (4.63-6.08); White Blood Count 0.54 K/ul (4.8-10.8)
[2022-02-28 03:22] LABS: Immature Granulocytes # (auto) 0.04 K/uL (0.00-0.02); Immature Granulocytes % (auto) 7.4 %; Lymphocytes % (auto) 55.6 %; Monocytes # (auto) 0.02 K/uL (0.24-0.82); Monocytes % (auto) 3.7 %; Neutrophils # (auto) 0.18 K/uL (1.4-6.5); Neutrophils % (auto) 33.3 %; Polychromasia 1+
[2022-02-28] MEDS ORDERED: SODIUM CHLORIDE 0.9% 250 ML IV PRN (03:27)
--- NOTE | 2022-02-28 07:29 | Hospitalist Progress Note ---
Date of Service February 28, 2022 Assessment & Plan (1) Syncope: Plan: Pt is a 76 yo male with PMH of AML undergoing current chemotherapy, HTN, mod-sev , BPH, dyslipidemia, and CAD s/p 3 vessel bypass in 1997 presenting to the hospital d/t a syncopal episode. Syncope: Plan: -Admit to med/tele -Patient is currently afebrile, hemodynamically stable, and stable on RA -Patient's syncopal episode appears to be due to hypotension combined with his aortic stenosis, could also be related to his pancytopenia/anemia -Had symptoms similar to orthostasis/vaso-vagal episode and was apparently dizzy this am, did take his AM amlodipine and metoprolol this am -No acute ECG changes noted, TSH and Troponin WNL, will get random cortisol level and orthostatic vitals now -Hold amlodipine but will continue metoprolol for now to avoid rebound ta chycardia -Continue to monitor on tele and pulse oximetry for now -Likely will need to hold Amlodipine on DC -AM CBC and CMP (2) Pancytopenia: Plan: -Patient with known hx of pancytopenia due to chemotherapy -Is being followed closely outpatient by Heme/onc with weekly labs -Hgb today is at 7.5, platelets at 31 with Neutrophils at 0.24 -Will order type/screen, irradiated PRBC's due to neutropenia with one unit given now and one kept on hand,obtained blood consent -Per Heme recs from last admission, should ideally keep Hgb > 7.5 and platelets > 15,000, will transfuse to keep Hgb > 8.0 due to his history of coronary bypass -No active signs of bleeding, continue to monitor platelets for now -Neutropenic precautions ordered -Continue prophylactic Levaquin, acyclovir, and voriconazole -Continue holding Venclexta for now with his pancytopenia and anemia -Monitor Am CBC with diff (3) Palpable mass of neck: Plan: -Has been worked up outpatient by hematology and currently on course of Augmentin which has caused significant improvement -Will continue Augmentin BID for now -Continue outpatient monitoring per PCP's note from today (4) Hyponatremia: Plan: -Currently stable -Continue sodium chloride tabs (5) AML (acute myeloblastic leukemia): Plan: -Followed closely by Heme/onc outpatient -Continue to hold Venclexta for now with his significant pancytopenia per heme/onc note on 02/22/22 (6) Aortic stenosis: Plan: -Last echo was on 01/23/22 showed mod-sevre and LVEF of 60-65% -Does not appear volume overloaded -Monitor volume status for now (7) Arteriosclerotic coronary artery disease: Plan: -Aspirin held when he started chemo, will continue to hold for now (8) Dyslipidemia: Plan: -Statin held last admission for rhabdo, continue to hold for now (9) Hypertension: Plan: -Hemodynamically stable -Hold amlodipine due to hypotension -Continue metoprolol for now -Will likely need to DC amlodipine prior to discharge (2) Pancytopenia: (3) AML (acute myeloblastic leukemia): (4) Hyponatremia: (5) Dyslipidemia: (6) Hypertension: (7) Palpable mass of neck: (8) Arteriosclerotic coronary artery disease: Admission and Anticipated Discharge Date Admission Date: February 27, 2022 Subjective Pt is a 76 yo male with PMH of AML undergoing current chemotherapy, HTN, mod-sev , BPH, dyslipidemia, and CAD s/p 3 vessel bypass in 1997 presenting to the hospital d/t a syncopal episode. Physical Exam Constitutional: NAD. Vitals WNL. Eyes: no conjunctival abnormality Respiratory: CTA bilaterally. No rhonchi, wheezing, or crackles. Non labored breathing. Cardiovascular: RRR. No murmur noted. No LL edema. Gastrointestinal (Abdomen): Nontender, +BS. No masses noted. Skin: no rashes, warm and dry Psychiatric: Alert. Mood and affect congruent. Results & Data Results & Data ([facility]) Vital Signs (Past 12 Hours) Vital Signs Temp Pulse Pulse Resp BP BP Pulse Ox 02/28/22 07:20 36.9 C 78 18 126/71 95 02/28/22 05:00 36.7 C 83 16 123/69 98 02/28/22 04:30 36.7 C 79 16 117/67 97 02/28/22 04:45 36.7 C 78 16 114/71 94 02/28/22 04:15 36.7 C 81 16 115/68 97 02/28/22 03:59 36.9 C 82 16 121/67 96 02/28/22 03:43 36.8 C 80 16 117/66 98 02/27/22 23:19 37 C 83 16 102/59 L 96 02/27/22 23:40 36.8 C 81 16 109/65 97 02/27/22 23:10 36.9 C 78 16 103/63 95 02/27/22 22:55 36.9 C 80 16 104/66 97 02/27/22 22:59 83 02/27/22 22:54 37 C 81 18 104/63 96 02/27/22 22:35 37 C 83 18 104/61 96 02/27/22 20:10 87 02/27/22 19:58 02/27/22 19:58 37 C 98 H 18 121/65 98 02/27/22 19:46 37 C 98 H 18 121/65 98 02/27/22 19:46 02/27/22 19:38 76 18 115/63 98 Pulse Ox O2 Del Method O2 Del Method 02/28/22 07:20 02/28/22 05:00 02/28/22 04:30 02/28/22 04:45 02/28/22 04:15 02/28/22 03:59 02/28/22 03:43 Room Air 02/27/22 23:19 Room Air 02/27/22 23:40 02/27/22 23:10 02/27/22 22:55 02/27/22 22:59 02/27/22 22:54 02/27/22 22:35 02/27/22 20:10 02/27/22 19:58 Room Air 02/27/22 19:58 Room Air 02/27/22 19:46 Room Air 02/27/22 19:46 98 Room Air 02/27/22 19:38 Room Air (1) Syncope Syncope type: unspecified Qualified Code(s): R55 - Syncope and collapse
[2022-02-28] MEDS: AMOXICILLIN/CLAVULANATE 500 MG TAB PO SCH (08:28)
[2022-02-28] MEDS: SODIUM CHLORIDE 1 GM TABLET PO SCH (08:28)
[2022-02-28] MEDS: ACYCLOVIR 400 MG TAB PO SCH (08:28)
[2022-02-28] MEDS: ASCORBIC ACID 500 MG TAB PO SCH (08:28)
[2022-02-28] MEDS: VORICONAZOLE 200 MG TABLET PO SCH (08:29)
--- NOTE | 2022-02-28 08:38 | Electrocardiogram Report ---
Test Reason : Blood Pressure : / mmHG Vent. Rate : 081 BPM Atrial Rate : 081 BPM P-R Int : 134 ms QRS Dur : 142 ms QT Int : 428 ms P-R-T Axes : -26 -48 012 degrees QTc Int : 497 ms Poor data quality, interpretation may be adversely affected Normal sinus rhythm Right bundle branch block Left anterior fascicular block Abnormal ECG When compared with ECG of 31-JAN-2022 09:27, No significant change was found Confirmed by Scooter Brown ([id number]) on 02/28/2022 8:38:13 AM Referred By: REFERRED SELF Confirmed By:Scooter Brown
[2022-02-28] MEDS ORDERED: METOPROLOL SUCC 50MG EXT REL TAB PO SCH (09:00)
[2022-02-28] MEDS ORDERED: levoFLOXacin 500 MG TAB PO SCH (09:00)
[2022-02-28] MEDS ORDERED: allopurinoL 300 MG TAB PO SCH (09:00)
[2022-02-28] MEDS ORDERED: CYANOCOBALAMIN (B-12) 500 MCG TABLET PO SCH (09:00)
--- NOTE | 2022-02-28 09:33 | Medical Student Progress Note ---
Date of Service February 28, 2022 Assessment & Plan (1) Syncope: Plan: Patient is currently afebrile, hemodynamically stable, and stable on room air. Pt's syncopal episodes appears to be due to hypotension combined with his aortic stenosis, possibly exaccerbated by his pancytopenia/anemia -No acute ECG changes noted, TSH and Troponin WNL, will get random cortisol level and orthostatic vitals now -Hold amlodipine but will continue metoprolol for now to avoid rebound tachycardia -Continue to monitor on tele and pulse oximetry for now -Likely will need to hold Amlodipine on DC -AM CBC and CMP Syncope type: unspecified Qualified Code(s): R55 - Syncope and collapse (2) Pancytopenia: Plan: -Patient with known hx of pancytopenia due to chemotherapy -Is being followed closely outpatient by Heme/onc with weekly labs -Hgb today is at 7.5, platelets at 31 with Neutrophils at 0.24 -Will order type/screen, irradiated PRBC's due to neutropenia with one unit given now and one kept on hand,obtained blood consent -Per Heme recs from last admission, should ideally keep Hgb > 7.5 and platelets > 15,000, will transfuse to keep Hgb > 8.0 due to his history of coronary bypass -No active signs of bleeding, continue to monitor platelets for now -Neutropenic precautions ordered -Continue prophylactic Levaquin, acyclovir, and voriconazole -Continue holding Venclexta for now with his pancytopenia and anemia -Monitor Am CBC with diff (3) AML (acute myeloblastic leukemia): Plan: -Followed closely by Heme/onc outpatient -Continue to hold Venclexta for now with his significant pancytopenia per heme/onc note on 02/22/22 (4) Hyponatremia: Plan: -Currently stable, Na+ 137 this AM -Continue to monitor, sodium chloride tabs prn (5) Dyslipidemia: Plan: -Statin held last admission for rhabdo, continue to hold for now (6) Hypertension: Plan: -Amplodipine held due to hypotension on admission -Pt remains hemodynamically stable, recent BP 126/71, continue to hold amlodipine for now -Since BP is up and WNL, continue metoprolol to avoid tachycardia -Will likely need to DC amlodipine prior to discharge (7) Palpable mass of neck: Plan: -Worked up outpatient by hematology. Significant decrease in size/tenderness since starting abx -Continue Augmentin BID (8) Arteriosclerotic coronary artery disease: Plan: -will continue to hold aspirin for now due to chemo Plan FEN/GI: Heart healthy diet Code: Full Code DVT PPx: SCDs Dispo: med/tele Admission and Anticipated Discharge Date Admission Date: February 27, 2022 Jose Martin Barba is a 76 y/o male with a PMHx significant for AML (follows with Heme/Onc), chemotherapy induced pancytopenia, HTN, CAD S/P [place] and 3 vessel bypass graft in 1997, BPH, hyponatremia, palpable neck mass who presented to the [facility] ED on 02/27/22 for syncope. He is on Day 1 of admission. No acute overnight events. Pt reports "feeling fine" and largely unchanged since his arrival. No new syncope/dizziness. Pt denies any chills, [place], N/V, now changes in bowel/bladder habits. He reports normal appetite and sleep. Review of Systems Constitutional: no fever, no chills and no body aches Eyes: no changes in vision Ear, Nose, Mouth, Throat: + neck lump Respiratory: no cough and no dyspnea Cardiovascular: no chest pain and no palpitations Gastrointestinal: no abdominal pain, no nausea, no vomiting and no change in stools Integumentary: no new lesions Neurologic: as per Subjective / HPI Physical Exam Constitutional: WD/WN, vitals as above comfortable; no acute distress Eyes: PERRL and EOM intact bilaterally ENMT: Mucous membranes moist, posterior oropharynx clear Neck: R-sided, firm, nontender, mobile mass located inferior to R mandible Respiratory: normal respiratory effort, lungs clear to auscultation Cardiovascular: Rate/Rhythm: regular rate and regular rhythm 2/6 systolic murmur Gastrointestinal (Abdomen): normal bowel sounds, soft, nontender, no hepatosplenomegaly Skin: no rashes, warm and dry Neurologic: CN's II-XI intact bilaterally Motor/Sensory: no tremor Coordination: normal [id number] test AOx3 Results & Data ([facility]) Vital Signs (Past 12 Hours) Vital Signs Temp Pulse Pulse Resp BP BP Pulse Ox 02/28/22 07:20 36.9 C 78 18 126/71 95 02/28/22 05:00 36.7 C 83 16 123/69 98 02/28/22 04:30 36.7 C 79 16 117/67 97 02/28/22 04:45 36.7 C 78 16 114/71 94 02/28/22 04:15 36.7 C 81 16 115/68 97 02/28/22 03:59 36.9 C 82 16 121/67 96 02/28/22 03:43 36.8 C 80 16 117/66 98 02/27/22 23:19 37 C 83 16 102/59 L 96 02/27/22 23:40 36.8 C 81 16 109/65 97 02/27/22 23:10 36.9 C 78 16 103/63 95 02/27/22 22:55 36.9 C 80 16 104/66 97 02/27/22 22:59 83 02/27/22 22:54 37 C 81 18 104/63 96 02/27/22 22:35 37 C 83 18 104/61 96 O2 Del Method 02/28/22 07:20 02/28/22 05:00 02/28/22 04:30 02/28/22 04:45 02/28/22 04:15 02/28/22 03:59 02/28/22 03:43 Room Air 02/27/22 23:19 Room Air 02/27/22 23:40 02/27/22 23:10 02/27/22 22:55 02/27/22 22:59 02/27/22 22:54 02/27/22 22:35
[2022-02-28 12:36] LABS: Hematocrit (blood only) 25.6 % (40.1-51.0); Hemoglobin 8.9 g/dl (14.0-18.0)
--- NOTE | 2022-02-28 12:48 | Med Student Discharge Summary ---
Date of Service February 28, 2022 Admission HPI Per Admitting Provider Jameson is a 76 year old male with a PMH significant for AML (follows with Heme/Onc), chemotherapy induced pancytopenia, HTN, CAD S/P [place] and 3 vessel bypass graft in 1997, BPH, hyponatremia, palpable neck mass who presented to the [facility] ED on 02/27/22 for syncope. Per chart review, the patient was recently admitted to [facility] from 01/21- 02/01/2022 for gram negative bacteremia, sacral wound, rhabdomyolysis, and sympt omatic anemia. CPK normalized by discharge.The cause of his rhabdomyolysis was thought to be caused possibly by statin induced, paraneoplastic, or secondary to chemotherapy. Hematology consulted during his admission, Venetoclax was held due to significant pancytopenia. Has was transfused PRBCs and platelets. His blood cultures grew Staph epidermidis- felt to be secondary to sacral wound. Infec tious disease was consulted and recommended he continue on IV ancef 2gm q8h with a stop date of 02/05. Per his PCP note from today, he previously had a workup of his neck mass including US which was nonspecific, differential includes abscess, hematoma, or abnormal lymph nodes. Since being treated with Augmentin by Hematology he has clinically improved, his PCP is planning to follow up with serial imaging to ensure it continues to improve/resolve. In the ED the patient was found to be afebrile, hemodynamically stable, and stable on RA.Labs were remarkable for pancytopenia including WBC of 0.72, RBC of 2.46, Hgb of 7.5, platelets of 31, absolute neutrophils of 0.24, stable renal function and electrolytes, LFTs WNL, high sensitivity trop of 8.5, TSH of 2.65, and covid negative. At the time of the exam the patient was resting comfortably in bed in no acute distress. He states that he had a syncopal episode while at his PCP's office earlier today when he went for his follow-up visit. He states that he was sitting in a chair in the doctor's office when he felt lightheaded and then dizzy. He states he became sweaty and then does not remember when happened next. He states he currently feels good, which is why he initially wanted to leave [place] from the ED. When asked, he states he was feeling dizzy/lightheaded this morning when getting ready for the doctor's office this am. He sat down and rested for a few minutes and his symptoms resolved. He states that he has a few days left of Augmentin which was prescribed by Hematology for his neck mass, he noted significant reduction in the size of the neck mass since starting Augmentin. When asked he states that he did take him AM meds, which included amlodipine and metoprolol prior to going to his PCP's office. He has been eating and drinking well, he ate breakfast his morning but did not have lunch prior to his PCP visit. He states that his previous sacral wound is completely healed, his checks it daily to make sure he is doing well. He completed his course of IV ancef and his peripheral IV was removed; he also confirms home health no longer comes as his wound has healed. I spoke to the patient regarding code status, he would like to be a Full Code. He does have a living will/POA. His son is his POA and would make decisions for him if he and his could not make decisions for himself. Admission Exam (Per Admitting) Constitutional WD/WN, vitals as above comfortable; no acute distress Eyes PERRL and EOM intact bilaterally Respiratory normal respiratory effort, lungs clear to auscultation Cardiovascular Rate/Rhythm: regular rate and regular rhythm Skin no rashes, warm and dry Neurologic Motor/Sensory: no tremor Coordination: normal [id number] test Discharge Exam Constitutional WD/WN, vitals as above comfortable; no acute distress Eyes PERRL and EOM intact bilaterally Respiratory normal respiratory effort, lungs clear to auscultation Cardiovascular Rate/Rhythm: regular rate and regular rhythm Gastrointestinal (Abdomen) soft, nontender, nondistended Skin no rashes, warm and dry Neurologic Motor/Sensory: no tremor Coordination: normal [id number]-[id number] test CN's grossly intact Discharge Data Consultations 02/27/22 16:42 ED Decision to Admit Stat Hospital Course (1) Syncope: Differential dx considered: Vasovagal syncope, orthostatic hypotensions, dehydration, hypoglycemia, electrolyte abnormalities, anemia, cardiac source, intracerebral event, PE, seizure, toxicologic, neurologic, as well as other etiologies. Patient is currently afebrile, hemodynamically stable, and stable on room air. Pt's syncopal episodes appears to be due to hypotension combined with his aortic stenosis, possibly exacerbated by his pancytopenia/anemia. Telemetry during admission was unremarkable. No acute ECG changes noted, TSH, Troponin, random cortisol WNL. Pt was hypotensive on admission with BPs in the 110s/60s. BPs as low as 88-90/50s noted in chart on 02/23/22. We held amlodipine during admission without any hypertensive events. -Recommend discontinuation of home amlodipine. -Continue 100mg metoprolol succinate but consider outpatient dose reduction given soft BPs noted in chart. (2) Anemia: Patient with known hx of pancytopenia due to chemotherapy and is being followed closely outpatient by Heme/onc with weekly labs. Per Heme recs from last admission, should ideally keep Hgb > 7.5 and platelets > 15,000, will transfuse to keep Hgb > 8.0 due to his history of coronary bypass -Normocytic anemia potentially exacerbating sx associated with syncope. Hgb upon admission was 7.5 then recheck 7.1. Transfused 2 units. Hgb upon d/c 8.9. No active signs of bleeding today. -Platelets at 21 with Neutrophils at 0.18 today. -Continue outpatient prophylactic Levaquin, acyclovir, and voriconazole -Continue holding Venclexta for now with his pancytopenia and anemia (3) Pancytopenia: As above. (4) AML (acute myeloblastic leukemia): -Followed closely by Heme/onc outpatient -Continue to hold Venclexta for now with his significant pancytopenia per heme/onc note on 02/22/22 (5) Hyponatremia: -Currently stable, Na+ 137 -Continue outpt sodium chloride tabs BID (6) Dyslipidemia: -Statin held last admission for rhabdo, continue to hold for now - unknown cause of rhabdo, could consider restarting in future (7) Hypertension: -Amplodipine held due to hypotension on admission -Pt remains hemodynamically stable, recent BP 126/71 -Recommend discontinue amlodipine and continue metoprolol succinate 100mg. Consider outpatient dose reduction if needed for recurrent hypotensive events. (8) Palpable mass of neck: -Worked up outpatient by hematology. Significant decrease in size/tenderness since starting abx -Continue Augmentin BID (9) Arteriosclerotic coronary artery disease: -will continue to hold aspirin for now due to chemo Plan FEN/GI: Heart healthy diet Code: Full Code DVT PPx: SCDs Dispo: home Discharge Plan Discharge Items Patient Disposition: Home - Home Health Services Reason For Visit: SYNCOPE Discharge Diagnosis: syncope Condition on Discharge: Good Activity: Per Instructions section Non-emergency contact: Primary Care Provider and Oncologist Call non-emergency contact if: you have any medication questions, your symptoms worsen and you have a fever Follow-up/Referrals: Dewayne Stout MD [Primary Care Provider] - 03/08/22 11:00 am Elaine Burgos MD [Physician] - (f/u syncope, in current AML treat. Please call to schedule an appointment.) Diet: Heart Healthy Addtl Attending Provider Instructions: You were admitted to the hospital for a syncopal episode (passing out). You were treated with IV fluids. Your Hgb level was found to be low at 7.1 and 7.5 (checked two different times) so you were given 2 transfusions of blood. This raised your hemoglobin to 8.9. A discharge summary will be sent to your primary care physician to ensure continuity of care. Please bring this discharge summary with you to your next office appointment so that your provider can review it at that time. Medications: Your medication list has been reviewed and reconciled upon discharge to ensure accuracy and continuity of care. An updated list of all your medications is included with your hospital discharge paperwork. Please review this list closely and make note of any changes to your medications. -Due to your blood pressures being low (which may be contributing to the reason you are passing out), stop taking your amlodipine blood pressure medication. Continue your metoprolol. - Otherwise, continue all your home medications as before your hospitalization. - You received your morning dose of augmentin, acyclovir, allopurinol, vitamin C, vitamin B12, levofloxacin, metoprolol, sodium chloride, and voriconazole today. Follow up appointments: - Make a follow up appointment with your PCP within the next week. It is very important that you follow up with them shortly after discharge from the hospital. - Keep all of your follow up appointments as already scheduled. If you cannot make an appointment, notify your provider. CONTACT YOUR PRIMARY CARE PROVIDER if you experience any of the following: - Difficulty following your treatment plan - Difficulty taking any of your medications CALL 911 OR GO TO THE EMERGENCY DEPARTMENT if you experience any of the following: - Additional episodes of passing out - Sudden, severe abdominal pain or nausea/vomiting - Severe chest pain or chest pain that radiates to your jaw or arm - Sudden, severe shortness of breath or difficulty breathing Pending Studies at Discharge: No Stand-Alone Forms: My [facility], Smoking Cessation Medications and DC Order Prescriptions: Continued voriconazole [Vfend] 200 mg tablet 200 mg PO BID Qty: 14 0RF allopurinol 300 mg tablet 300 mg PO QAM Qty: 90 3RF melatonin 3 mg tablet 6 mg PO HS Qty: 60 0RF sodium chloride 1 gram tablet 1 g PO BID Qty: 60 0RF amoxicillin-pot clavulanate [Augmentin] 500-125 mg tablet 1 tab PO BID ascorbic acid (vitamin C) 500 mg tablet 500 mg PO BID nitroglycerin 0.4 mg tablet, sublingual 0.4 mg SL Q5M PRN (Reason: Chest Pain) Qty: 1 Rx Instructions: NEEDED FOR CHEST PAIN : ONE TABLET UNDER THE TONGUE EVERY 5 MINUTES UP TO THREE DOSES. metoprolol succinate 100 mg tablet extended release 24 hr 100 mg PO QAM polyethylene glycol 3350 17 gram Powder In Packet 17 g PO DAILY PRN (Reason: Constipation) cyanocobalamin (vitamin B-12) 1,000 mcg Capsule 1,000 mcg PO QAM Venclexta 100 mg tablet 100 mg PO QAM ondansetron 4 mg Tablet,Disintegrating 4 mg PO Q6H PRN (Reason: Nausea) acyclovir 400 mg Tablet 400 mg PO BID Qty: 14 0RF levofloxacin 500 mg Tablet 500 mg PO QAM Qty: 7 0RF Discontinued amlodipine 2.5 mg tablet 2.5 mg PO QAM Hold Instructions: low BP Discharge Orders: Discharge Order (Routine); Ordered 02/28/22 Ordered By: Mariya Finney Admission Data Admit Date/Time: 02/27/22 17:02 Attending Provider: Brittani Webster Admit Provider: Dewayne Graham Primary Care Provider: Dewayne Stout Other Providers: Dewayne Graham Other Interventions: Discharge Summary Assessment (RN) Last Done: 02/28/22 13:02 Supervising Attestation Medical Student Supervision Note: I was personally present during medical student patient encounter and independently interviewed and examined the patient and verified the lópez history and physical, reviewed labs and image studies, discussed the case with Shahida Mathis and agree with the findings and care plan. Syncope: likely multifactorial - h/o recurrent vasovagal syncope with hypotension, orthostasis, anemia, moderate to severe . Observed on Tele- no arrhythmias noted. EKG normal TSH, Troponin WNL. Random cortisol 7. Received PRBC with hb 8.9 on discharge. Evaluated by cardiology - amlodipine d/nohemy since hypotensive on admission. BP in 120s systolic at the time of discharge. Consider ACTH suppression test as outpatient.
== END 2022-02-28 16:28 | disposition home health service (06) ==
LOC: ED 14:17 → 2W 14:17 → SUATTDRO 17:02 → 2W 19:38 → UNDODISOB 02-28 06:54

== ENCOUNTER 2022-04-10 11:38 | Inpatient (IN) ==
--- NOTE | 2022-04-10 12:33 | Electrocardiogram Report ---
Test Reason : Blood Pressure : / mmHG Vent. Rate : 123 BPM Atrial Rate : 123 BPM P-R Int : 140 ms QRS Dur : 138 ms QT Int : 324 ms P-R-T Axes : 001 -59 027 degrees QTc Int : 463 ms Poor data quality, interpretation may be adversely affected Sinus tachycardia Right bundle branch block Left anterior fascicular block Bifascicular block Abnormal ECG When compared with ECG of 27-FEB-2022 14:23, Vent. rate has increased BY 42 BPM Confirmed by Kevin Fitch ([id number]) on 04/10/2022 12:30:00 PM Referred By: Confirmed By:Kevin Fitch
[2022-04-10 13:09] LABS: INR 1.1 (0.9-1.1); Partial Thromboplastin Ratio 1.1; Partial Thromboplastin Time 29.7 Seconds (21.0-31.0)
[2022-04-10 13:19] LABS: Alanine Aminotransferase 9 U/L (7-52); Albumin Globulin Ratio 0.9 (0.9-2); Albumin Level 2.9 gm/dl (3.4-5.0); Alkaline Phosphatase 68 U/L (34-104); Anion Gap 8 (3-11); Aspartate Aminotransferase 15 U/L (13-39); BUN Creatinine Ratio 16.7 (10-20); Bilirubin,Total 0.6 mg/dl (0.2-1.0); Blood Urea Nitrogen 13 mg/dl (6-23); Calcium 8.5 mg/dl (8.5-10.1); Carbon Dioxide 25 mmol/L (21-32); Chloride 100 mmol/L (98-107); Est GFR (African American) 100.2 ml/min; Est GFR (Non-African American) 86.5 ml/min; Globulin 3.4 gm/dl (2.5-4.0); Glucose 134 mg/dl (70-99(Fasting)); Potassium 3.8 mmol/L (3.5-5.1); Sodium 133 mmol/L (136-145); Total Protein 6.3 gm/dl (6.0-8.3)
--- NOTE | 2022-04-10 13:21 | XRay Report ---
XR chest 2V PA/lateral HISTORY: 76 years-old Male Sepsis acute sepsis COMPARISON: Chest CT 03/27/2022 TECHNIQUE: PA and lateral views of the chest FINDINGS: Cardiomediastinal and hilar silhouettes are within normal limits. Prior median sternotomy and CABG. C alcified mediastinal and hilar lymph nodes. Subtle diffuse reticular nodular densities again noted. D egenerative changes of the shoulders and spine. IMPRESSION: Reticulonodular opacities are redemonstrated along with calcified mediastinal and hilar l ymph nodes. Findings are again suggestive of an infectious or inflammatory pneumonitis such as pulmon roxana sarcoidosis. ACT 112: Negative or not required by law. The above report was generated using voice recognition software. It may contain grammatical, syntax o r spelling errors. Electronically signed by: Garcia Vaca M.D. 04/10/2022 1:20 PM
[2022-04-10 13:23] LABS: Troponin I High Sensitivity 21.6 pg/ml (0-20)
[2022-04-10 13:47] LABS: Hematocrit (blood only) 22.7 % (40.1-51.0); Hemoglobin 7.7 g/dl (14.0-18.0); Mean Corpuscular Hemoglobin 30.7 pg (25.0-34.0); Mean Corpuscular Hgb Conc 33.9 g/dL (32.0-36.0); Mean Corpuscular Volume 90.4 fL (80.0-100.0); Mean Platelet Volume 8.2 fL (9.4-12.4); Platelet Count 9 K/uL (130-400); RDW Coefficient of Variation 14.6 % (11.5-14.5); RDW Standard Deviation 47.1 fL (36.4-46.3); Red Blood Count 2.51 M/uL (4.63-6.08)
[2022-04-10 14:14] LABS: Adenovirus PCR Not Detected (NotDetected); Bordetella parapertussis PCR Not Detected (NotDetected); Bordetella pertussis PCR Not Detected (NotDetected); Chlamydia pneumoniae PCR Not Detected (NotDetected); Coronavirus 229E PCR Not Detected (NotDetected); Coronavirus CoV-2 (COVID19)PCR Not Detected (NotDetected); Coronavirus HKU1 PCR Not Detected (NotDetected); Coronavirus NL63 PCR Not Detected (NotDetected); Coronavirus OC43PCR Not Detected (NotDetected); Human Metapneumovirus PCR Not Detected (NotDetected); Influenza A PCR Not Detected (NotDetected); Influenza B PCR Not Detected (NotDetected); Mycoplasma pneumoniae PCR Not Detected (NotDetected); Parainfluenza Virus 1 PCR Not Detected (NotDetected); Parainfluenza Virus 2 PCR Not Detected (NotDetected); Parainfluenza Virus 3 PCR Not Detected (NotDetected); Parainfluenza Virus 4 PCR Not Detected (NotDetected); Respiratory Syncytial VirusPCR Not Detected (NotDetected); Rhinovirus/Enterovirus PCR Not Detected (NotDetected)
[2022-04-10] MEDS ORDERED: CEFEPIME 2,000 MG/20 ML VIAL IV STA (14:51)
[2022-04-10] MEDS ORDERED: SODIUM CHLORIDE 0.9% 1000ML 1,000 ML IV ONE ×2 (14:51→16:05)
--- NOTE | 2022-04-10 16:11 | Emergency Department Note ---
Impression & Plan Fever and neutropenia, AML (acute myeloblastic leukemia), Acute hypotension ED Provider Note NAME: ELIAZAR JOYCE AGE: 76 SEX: M : 1945 ARRIVES VIA: Walk-In INFORMANT: Patient, the patient's significant other ED PROVIDER(S): Kevin Gustafson DO CHIEF COMPLAINT: Fever HPI: The patient is a 76-year-old male who presented to the emergency department for an evaluation of febrile illness. The patient start having fever last night. Through the night he had chills and he was complaining of dizziness as well as weakness. He denies having any cough. He denies having any dysuria or frequency. He denies having any back pain. He has had no abdominal pain. The patient does have a history of AML. He received chemotherapy. He received last chemotherapy a week ago. He did not see his family doctor but presented to the emergency department because with a fever and chemotherapy he knew he should come in for an evaluation. The patient denies having any vomiting. He did take Tylenol. His last dose was prior to arrival. ROS: See above HPI for pertinent positives & negatives. A total of 10 systems reviewed and were otherwise negative. PAST MEDICAL HISTORY: See Below PAST SURGICAL HISTORY: See Below FAMILY HISTORY: See Below SOCIAL HISTORY: See Below HOME MEDICATIONS: See Below ALLERGIES: See Below VITALS: See Below PHYSICAL EXAMINATION: GENERAL: Patient is awake and alert. He is somewhat listless appearing but he does not appear to be uncomfortable. EYES: The conjunctivae are clear. The pupils are round and reactive. EARS, NOSE, MOUTH AND THROAT: The nose is without any evidence of any deformity. Mucous membranes are dry. NECK: The neck is nontender and supple. RESPIRATORY: Normal respiratory effort is noted there is no evidence of wheezing rhonchi or rales CARDIOVASCULAR: Tachycardic and regular heart sounds were noted auscultation. There is no definite murmur. GASTROINTESTINAL: The abdomen is soft. Abdomen is nontender. MUSCULOSKELETAL/EXTREMITIES: There is no evidence of gross deformity full range of motion is noted in the hips and shoulders. SKIN: Skin is warm and dry. There was trace pedal edema bilaterally. NEUROLOGIC: Patient is awake alert and oriented x3. MEDICAL DECISION MAKING: The patient is a 76-year-old male who presented to the emergency department for an evaluation of fever. The patient initially was placed on a subway. Orders were placed by triage. The patient was found to have significant abnormalities including pancytopenia and neutropenia. The patient had orders placed which included IV fluids and IV empiric antibiotics. Nursing staff was asked to bring the patient back to room multiple times. The patient ultimately was brought back to room after a long time and still the IV antibiotics were prolonged in delivery. For this reason the patient was made a sepsis alert to try to expedite the patient's care. He was ordered IV fluids and IV antibiotics. He was reevaluated multiple times. I discussed the patient's condition with the on-call [facility]. They have agreed to evaluate the patient in the emergency department for further management and disposition. Triage Nursing notes reviewed. Prior medical records reviewed Vital Signs: reviewed and remarkable for fever and tachycardia. Differential diagnosis: Viral syndrome, otitis, pharyngitis, pneumonia, influenza, meningitis, urinary tract infection, sepsis, bacteremia, as well as other pathologies. ER treatment provided: See below Diagnostics interpreted by me: ECG: EKG was obtained in the emergency department. My interpretation is sinus tachycardia 123 bpm. Right bundle branch block pattern was noted. There is no PVCs. This was compared to a tracing from February 27, 2022. No changes were noted. Cardiac Monitoring: An order was placed for continuous cardiac monitoring. The monitor shows a rate of 125 bpm with sinus tachycardia. Laboratory studies: As stated above and show below. Imaging studies: See below Consultation(s): I discussed this case with Dr. Childers who is on-call for the [facility] group. ED COURSE: Procedures: none Critical Care: I have personally spent greater than 45 minutes of critical care time in the direct management of this patient. This includes bedside care, interpretation of diagnostic studies, and testing, discussion with consultants, patient, and family members, and other required patient management activities. This 45 minutes is in excess of all separately billable procedures. Past Med/Surg History Medical History AML (acute myeloblastic leukemia) Aortic stenosis Arteriosclerotic coronary artery disease Benign enlargement of prostate Carotid artery plaque Dyslipidemia Hypertension Past myocardial infarction Syncope Tachycardia Tubulovillous adenoma of colon Surgical History History of cardiac cath cath stent 1 first obtuse marginal branch, type bare metal cath stent 2 first saphenous vein graft, type drug-eluting History of colonoscopy History of coronary artery bypass graft x 3 History of hemorrhoidectomy S/P CABG x 3 Family History Brother Coronary heart disease 5 brothers Father Myocardial infarction Denies family history of Ovarian cancer Prostate cancer Breast cancer Colorectal cancer Lung disease Social History Smoking Status: Never smoker Tobacco Type: Cigarettes Age Started Using Tobacco: 14; Age Quit Using Tobacco: 21; packs per day: 1; Second Hand Exposure: No; Hx Alcohol Use: No Hx Substance Use: No Preferred Language: Welsh Communication Ability: Effective Visual Impairment: Limited Hearing Ability: Use of Hearing Aid Print Producer Required: No Beliefs That Will Affect Care: None marital status: Current Living Situation: Spouse Current Living Situation Comment: Lives with in a house has a hospital bed downstairs current occupational status: employed 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 How many Children do You have: 4 Feels Safe at Home: Yes Childhood Exposure to Second-Hand Smoke: No caffeine: Yes (cup of coffee in morning ) Dental Care, Regularly: No Physical Activity Frequency: Daily Seatbelt Use: always Sunscreen Use: Yes Assistive Devices: Walker Allergies Allergies Allergy/AdvReac Type Severity Reaction Status Date / Time diphenhydramine AdvReac Severe ITCHING Verified 04/10/22 16:45 [From Benadryl] losartan AdvReac Intermediate FATIGUE, Verified 04/10/22 16:45 CHEST PAIN oxycodone [From Percocet] AdvReac Intermediate Confusion Verified 04/10/22 16:45 lisinopril AdvReac Mild FATIGUE Verified 04/10/22 16:45 Home Meds Home Medications Medication Instructions Recorded Confirmed ascorbic acid (vitamin C) 500 mg 500 mg PO BID 02/11/19 04/10/22 tablet nitroglycerin 0.4 mg sublingual 0.4 mg sublingual Q5M PRN Chest 02/11/19 04/10/22 tablet Pain #1 tab cyanocobalamin (vitamin B-12) 1,000 mcg PO QAM 12/12/21 04/10/22 1,000 mcg capsule metoprolol succinate 100 mg 50 mg PO QAM 12/12/21 04/10/22 tablet,extended release 24 hr ondansetron 4 mg disintegrating 4 mg PO Q6H PRN Nausea 12/12/21 04/10/22 tablet polyethylene glycol 3350 17 gram 17 g PO DAILY PRN Constipation 12/12/21 04/10/22 oral powder packet Previous Rx's Medication Instructions Recorded acyclovir 400 mg tablet 400 mg PO BID #14 tabs 12/15/21 levofloxacin 500 mg tablet 500 mg PO QAM #7 tabs 12/15/21 voriconazole 200 mg tablet (Vfend) 200 mg PO BID #14 tabs 01/19/22 allopurinol 300 mg tablet 300 mg PO QAM #90 tabs 02/01/22 melatonin 3 mg tablet 6 mg PO HS #60 tabs 02/10/22 sodium chloride 1 gram tablet 1 g PO BID #180 tabs 03/28/22 Results & Data (ED) Vital Signs Vital Signs - 24 hr 04/10/22 12:09 Temperature 37 C Temperature Source Oral Pulse Rate 131 H Respiratory Rate 18 Respiratory Effort / Characteristics Non-Labored Spontaneous Respiratory Depth Normal Blood Pressure 85/59 L Blood Pressure Mean 67 Pulse Oximetry 96 Oxygen Delivery Method Room Air Sepsis Recent Fever Within 48 Hours Yes Sepsis New/Unexplained Change in Mental Status No Sepsis Action Taken by Nursing No Action Required Home Medications Current Medication List: was personally reviewed by me Laboratory Data Attestation: I reviewed the patient's lab results. Result diagrams: 04/10/22 12:38 04/10/22 12:38 Lab Results 04/10/22 04/10/22 04/10/22 Range/Units 12:38 12:38 12:38 WBC 0.30 L* (4.8-10.8) K/ul RBC 2.51 L (4.63-6.08) M/uL Hgb 7.7 L (14.0-18.0) g/dl Hct 22.7 L (40.1-51.0) % MCV 90.4 (80.0-100.0) fL MCH 30.7 (25.0-34.0) pg MCHC 33.9 (32.0-36.0) g/dL RDW Std Deviation 47.1 H (36.4-46.3) fL RDW Coeff of Marty 14.6 H (11.5-14.5) % Plt Count 9 L* (130-400) K/uL MPV 8.2 L (9.4-12.4) fL Immature Gran % (Auto) Cancelled Neut % (Auto) Cancelled Lymph % (Auto) Cancelled [place] % (Auto) Cancelled Eos % (Auto) Cancelled Baso % (Auto) Cancelled Neut # (Auto) Cancelled Lymph # (Auto) Cancelled [place] # (Auto) Cancelled Eos # (Auto) Cancelled Baso # (Auto) Cancelled Immature Gran # (Auto) Cancelled Neutrophils % (Manual) 11 % Band Neutrophils % Cancelled Lymphocytes % (Manual) 73 % Prolymphocyte % Cancelled Reactive Lymphs % (Man) Cancelled Monocytes % (Manual) Cancelled Eosinophils % (Manual) 1 % Basophils % (Manual) Cancelled Metamyelocytes % (Man) 1 % Myelocytes % (Man) Cancelled Promyelocytes % (Man) Cancelled Blast Cells % (Manual) 14 % Plasma Cell % (Manual) Cancelled Other Cells % Cancelled Nucleated RBC % Cancelled Neutrophils # (Manual) 0.03 L (1.4-6.5) K/uL Band Neutrophils # Cancelled Total Absolute Neuts 0.03 L* (1.4-6.5) K/uL Lymphocytes # (Manual) 0.22 L (1.2-3.4) K/uL Prolymphocyte # Cancelled Reactive Lymphs # Cancelled Total Abs Lymphocytes 0.22 L (1.2-3.4) K/uL Monocytes # (Manual) Cancelled Eosinophils # (Manual) 0.00 (0-0.50) K/uL Basophils # (Manual) Cancelled Metamyelocytes # (Man) 0.00 (0-0) K/uL Myelocytes # (Manual) Cancelled Promyelocytes # (Man) Cancelled Blast Cells # (Man) 0.04 H (0-0) K/uL Plasma Cell # (Manual) Cancelled Other Cells # Cancelled Nucleated RBCs # (Man) Cancelled Hypersegmented Neuts Cancelled Hyposegmented Neuts Cancelled Hypogranular Neuts Cancelled Large Granular Lymphs Cancelled # Lrg Granular Lymphs Cancelled Hairy Cells Cancelled Smudge Cells Cancelled Toxic Granulation Cancelled Toxic Vacuolation Cancelled Dohle Bodies Cancelled Alyssa Rods Cancelled Hypogranular Platelets Cancelled Clumped Platelets Cancelled Giant Platelets Cancelled Platelet Satelliting Cancelled RBC Morphology Unremarkable Polychromasia Cancelled Hypochromasia Cancelled Poikilocytosis Cancelled Basophilic Stippling Cancelled Anisocytosis Cancelled Microcytosis Cancelled Macrocytosis Cancelled Spherocytes Cancelled Pappenheimer Bodies Cancelled Sickle Cells Cancelled Target Cells Cancelled Tear Drop Cells Cancelled Ovalocytes Cancelled Stomatocytes Cancelled Manzano-Mulvane Bodies Cancelled Echinocytes Cancelled Acanthocytes (Spur) Cancelled Rouleaux Cancelled RBC Agglutinates Cancelled Schistocytes Cancelled ESR (0-20) mm/hr Sezary Cell Cancelled PT 12.0 (9.0-12.0) Seconds INR 1.1 (0.9-1.1) APTT 29.7 (21.0-31.0) Seconds PTT Ratio 1.1 Sodium 133 L (136-145) mmol/L Potassium 3.8 (3.5-5.1) mmol/L Chloride 100 (98-107) mmol/L Carbon Dioxide 25 (21-32) mmol/L Anion Gap 8 (3-11) BUN 13 (6-23) mg/dl Creatinine 0.78 (0.6-1.4) mg/dl Est Cr Clr Drug Dosing Not Reportable Est GFR ( Amer) 100.2 ml/min Est GFR (Non-Af Amer) 86.5 ml/min BUN/Creatinine Ratio 16.7 (10-20) Glucose 134 H (70-99(Fasting)) mg/dl Lactate (0.4-2.0) mmol/L Calcium 8.5 (8.5-10.1) mg/dl Total Bilirubin 0.6 (0.2-1.0) mg/dl AST 15 (13-39) U/L ALT 9 (7-52) U/L Alkaline Phosphatase 68 (34-104) U/L Troponin I High Sens 21.6 H (0-20) pg/ml C-Reactive Protein (0-0.5) mg/dl Total Protein 6.3 (6.0-8.3) gm/dl Albumin 2.9 L (3.4-5.0) gm/dl Globulin 3.4 (2.5-4.0) gm/dl Albumin/Globulin Ratio 0.9 (0.9-2) Procalcitonin (0-0.5) ng/ml Adenovirus (PCR) (NotDetected) B. pertussis DNA (PCR) (NotDetected) B.parapertussis DNA PCR (NotDetected) C. pneumoniae DNA (PCR) (NotDetected) Coronavirus OC43 (PCR) (NotDetected) Coronavirus HKU1 (PCR) (NotDetected) Coronavirus 229E (PCR) (NotDetected) SARS-CoV-2 (PCR) (NotDetected) Coronavirus NL63 (PCR) (NotDetected) Human Metapneumovir PCR (NotDetected) Influenza Type A (PCR) (NotDetected) Influenza Type B (PCR) (NotDetected) M. pneumoniae (PCR) (NotDetected) Parainfluenza 1 (PCR) (NotDetected) Parainfluenza 2 (PCR) (NotDetected) Parainfluenza 3 (PCR) (NotDetected) Parainfluenza 4 (PCR) (NotDetected) RSV (PCR) (NotDetected) Entero/Rhino (PCR) (NotDetected) Blood Parasites ID Cancelled Blood Type Antibody Screen Crossmatch 04/10/22 04/10/22 04/10/22 Range/Units 12:38 12:38 12:38 WBC (4.8-10.8) K/ul RBC (4.63-6.08) M/uL Hgb (14.0-18.0) g/dl Hct (40.1-51.0) % MCV (80.0-100.0) fL MCH (25.0-34.0) pg MCHC (32.0-36.0) g/dL RDW Std Deviation (36.4-46.3) fL RDW Coeff of Marty (11.5-14.5) % Plt Count (130-400) K/uL MPV (9.4-12.4) fL Immature Gran % (Auto) Neut % (Auto) Lymph % (Auto) [place] % (Auto) Eos % (Auto) Baso % (Auto) Neut # (Auto) Lymph # (Auto) [place] # (Auto) Eos # (Auto) Baso # (Auto) Immature Gran # (Auto) Neutrophils % (Manual) % Band Neutrophils % Lymphocytes % (Manual) % Prolymphocyte % Reactive Lymphs % (Man) Monocytes % (Manual) Eosinophils % (Manual) % Basophils % (Manual) Metamyelocytes % (Man) % Myelocytes % (Man) Promyelocytes % (Man) Blast Cells % (Manual) % Plasma Cell % (Manual) Other Cells % Nucleated RBC % Neutrophils # (Manual) (1.4-6.5) K/uL Band Neutrophils # Total Absolute Neuts (1.4-6.5) K/uL Lymphocytes # (Manual) (1.2-3.4) K/uL Prolymphocyte # Reactive Lymphs # Total Abs Lymphocytes (1.2-3.4) K/uL Monocytes # (Manual) Eosinophils # (Manual) (0-0.50) K/uL Basophils # (Manual) Metamyelocytes # (Man) (0-0) K/uL Myelocytes # (Manual) Promyelocytes # (Man) Blast Cells # (Man) (0-0) K/uL Plasma Cell # (Manual) Other Cells # Nucleated RBCs # (Man) Hypersegmented Neuts Hyposegmented Neuts Hypogranular Neuts Large Granular Lymphs # Lrg Granular Lymphs Hairy Cells Smudge Cells Toxic Granulation Toxic Vacuolation Dohle Bodies Alyssa Rods Hypogranular Platelets Clumped Platelets Giant Platelets Platelet Satelliting RBC Morphology Polychromasia Hypochromasia Poikilocytosis Basophilic Stippling Anisocytosis Microcytosis Macrocytosis Spherocytes Pappenheimer Bodies Sickle Cells Target Cells Tear Drop Cells Ovalocytes Stomatocytes Manzano-Mulvane Bodies Echinocytes Acanthocytes (Spur) Rouleaux RBC Agglutinates Schistocytes ESR 54 H (0-20) mm/hr Sezary Cell PT (9.0-12.0) Seconds INR (0.9-1.1) APTT (21.0-31.0) Seconds PTT Ratio Sodium (136-145) mmol/L Potassium (3.5-5.1) mmol/L Chloride (98-107) mmol/L Carbon Dioxide (21-32) mmol/L Anion Gap (3-11) BUN (6-23) mg/dl Creatinine (0.6-1.4) mg/dl Est Cr Clr Drug Dosing Est GFR ( Amer) ml/min Est GFR (Non-Af Amer) ml/min BUN/Creatinine Ratio (10-20) Glucose (70-99(Fasting)) mg/dl Lactate 1.6 (0.4-2.0) mmol/L Calcium (8.5-10.1) mg/dl Total Bilirubin (0.2-1.0) mg/dl AST (13-39) U/L ALT (7-52) U/L Alkaline Phosphatase (34-104) U/L Troponin I High Sens (0-20) pg/ml C-Reactive Protein (0-0.5) mg/dl Total Protein (6.0-8.3) gm/dl Albumin (3.4-5.0) gm/dl Globulin (2.5-4.0) gm/dl Albumin/Globulin Ratio (0.9-2) Procalcitonin 0.45 (0-0.5) ng/ml Adenovirus (PCR) (NotDetected) B. pertussis DNA (PCR) (NotDetected) B.parapertussis DNA PCR (NotDetected) C. pneumoniae DNA (PCR) (NotDetected) Coronavirus OC43 (PCR) (NotDetected) Coronavirus HKU1 (PCR) (NotDetected) Coronavirus 229E (PCR) (NotDetected) SARS-CoV-2 (PCR) (NotDetected) Coronavirus NL63 (PCR) (NotDetected) Human Metapneumovir PCR (NotDetected) Influenza Type A (PCR) (NotDetected) Influenza Type B (PCR) (NotDetected) M. pneumoniae (PCR) (NotDetected) Parainfluenza 1 (PCR) (NotDetected) Parainfluenza 2 (PCR) (NotDetected) Parainfluenza 3 (PCR) (NotDetected) Parainfluenza 4 (PCR) (NotDetected) RSV (PCR) (NotDetected) Entero/Rhino (PCR) (NotDetected) Blood Parasites ID Blood Type Antibody Screen Crossmatch 04/10/22 04/10/22 04/10/22 Range/Units 12:38 13:00 16:13 WBC (4.8-10.8) K/ul RBC (4.63-6.08) M/uL Hgb (14.0-18.0) g/dl Hct (40.1-51.0) % MCV (80.0-100.0) fL MCH (25.0-34.0) pg MCHC (32.0-36.0) g/dL RDW Std Deviation (36.4-46.3) fL RDW Coeff of Marty (11.5-14.5) % Plt Count (130-400) K/uL MPV (9.4-12.4) fL Immature Gran % (Auto) Neut % (Auto) Lymph % (Auto) [place] % (Auto) Eos % (Auto) Baso % (Auto) Neut # (Auto) Lymph # (Auto) [place] # (Auto) Eos # (Auto) Baso # (Auto) Immature Gran # (Auto) Neutrophils % (Manual) % Band Neutrophils % Lymphocytes % (Manual) % Prolymphocyte % Reactive Lymphs % (Man) Monocytes % (Manual) Eosinophils % (Manual) % Basophils % (Manual) Metamyelocytes % (Man) % Myelocytes % (Man) Promyelocytes % (Man) Blast Cells % (Manual) % Plasma Cell % (Manual) Other Cells % Nucleated RBC % Neutrophils # (Manual) (1.4-6.5) K/uL Band Neutrophils # Total Absolute Neuts (1.4-6.5) K/uL Lymphocytes # (Manual) (1.2-3.4) K/uL Prolymphocyte # Reactive Lymphs # Total Abs Lymphocytes (1.2-3.4) K/uL Monocytes # (Manual) Eosinophils # (Manual) (0-0.50) K/uL Basophils # (Manual) Metamyelocytes # (Man) (0-0) K/uL Myelocytes # (Manual) Promyelocytes # (Man) Blast Cells # (Man) (0-0) K/uL Plasma Cell # (Manual) Other Cells # Nucleated RBCs # (Man) Hypersegmented Neuts Hyposegmented Neuts Hypogranular Neuts Large Granular Lymphs # Lrg Granular Lymphs Hairy Cells Smudge Cells Toxic Granulation Toxic Vacuolation Dohle Bodies Alyssa Rods Hypogranular Platelets Clumped Platelets Giant Platelets Platelet Satelliting RBC Morphology Polychromasia Hypochromasia Poikilocytosis Basophilic Stippling Anisocytosis Microcytosis Macrocytosis Spherocytes Pappenheimer Bodies Sickle Cells Target Cells Tear Drop Cells Ovalocytes Stomatocytes Manzano-Mulvane Bodies Echinocytes Acanthocytes (Spur) Rouleaux RBC Agglutinates Schistocytes ESR (0-20) mm/hr Sezary Cell PT (9.0-12.0) Seconds INR (0.9-1.1) APTT (21.0-31.0) Seconds PTT Ratio Sodium (136-145) mmol/L Potassium (3.5-5.1) mmol/L Chloride (98-107) mmol/L Carbon Dioxide (21-32) mmol/L Anion Gap (3-11) BUN (6-23) mg/dl Creatinine (0.6-1.4) mg/dl Est Cr Clr Drug Dosing Est GFR ( Amer) ml/min Est GFR (Non-Af Amer) ml/min BUN/Creatinine Ratio (10-20) Glucose (70-99(Fasting)) mg/dl Lactate (0.4-2.0) mmol/L Calcium (8.5-10.1) mg/dl Total Bilirubin (0.2-1.0) mg/dl AST (13-39) U/L ALT (7-52) U/L Alkaline Phosphatase (34-104) U/L Troponin I High Sens (0-20) pg/ml C-Reactive Protein 25.44 H (0-0.5) mg/dl Total Protein (6.0-8.3) gm/dl Albumin (3.4-5.0) gm/dl Globulin (2.5-4.0) gm/dl Albumin/Globulin Ratio (0.9-2) Procalcitonin (0-0.5) ng/ml Adenovirus (PCR) Not Detected (NotDetected) B. pertussis DNA (PCR) Not Detected (NotDetected) B.parapertussis DNA PCR Not Detected (NotDetected) C. pneumoniae DNA (PCR) Not Detected (NotDetected) Coronavirus OC43 (PCR) Not Detected (NotDetected) Coronavirus HKU1 (PCR) Not Detected (NotDetected) Coronavirus 229E (PCR) Not Detected (NotDetected) SARS-CoV-2 (PCR) Not Detected (NotDetected) Coronavirus NL63 (PCR) Not Detected (NotDetected) Human Metapneumovir PCR Not Detected (NotDetected) Influenza Type A (PCR) Not Detected (NotDetected) Influenza Type B (PCR) Not Detected (NotDetected) M. pneumoniae (PCR) Not Detected (NotDetected) Parainfluenza 1 (PCR) Not Detected (NotDetected) Parainfluenza 2 (PCR) Not Detected (NotDetected) Parainfluenza 3 (PCR) Not Detected (NotDetected) Parainfluenza 4 (PCR) Not Detected (NotDetected) RSV (PCR) Not Detected (NotDetected) Entero/Rhino (PCR) Not Detected (NotDetected) Blood Parasites ID Blood Type A Positive Antibody Screen NEGATIVE Crossmatch See Detail Administered Medications Acyclovir (Acyclovir 400 Mg Tab) 400 mg PO BID CHIKI Stop: 05/10/22 20:59 Last Admin: 04/10/22 22:27 Dose: 400 mg Documented By: DP Ascorbic Acid (Ascorbic Acid 500 Mg Tab) 500 mg PO BID CHIKI Stop: 05/10/22 20:59 Last Admin: 04/10/22 22:27 Dose: 500 mg Documented By: DP Melatonin (Melatonin 3 Mg Tab) 6 mg PO HS CHIKI Stop: 05/10/22 20:59 Last Admin: 04/10/22 22:26 Dose: 6 mg Documented By: DP Sodium Chloride (Sodium Chloride 1 Gm Tablet) 1 gm PO BID CHIKI Stop: 05/10/22 20:59 Last Admin: 04/10/22 22:27 Dose: 1 gm Documented By: DP Voriconazole (Voriconazole 200 Mg Tablet) 200 mg PO BID CHIKI Stop: 05/10/22 20:59 Last Admin: 04/10/22 22:28 Dose: 200 mg Documented By: DP Discontinued Medications Acetaminophen (Acetaminophen 325 Mg Tab) 650 mg PO NOW STA Stop: 04/10/22 21:22 Last Admin: 04/10/22 21:24 Dose: 650 mg Documented By: DP Cefepime HCl (Cefepime 2,000 Mg/20 Ml Vial) Confirm Administered Dose 2,000 mg .ROUTE .STK-MED ONE Stop: 04/10/22 17:18 Last Admin: 04/10/22 17:23 Dose: Not Given Documented By: YVONNE Sodium Chloride (Nss 1000ml) 1,000 mls @ 999 mls/hr IV .Q1H1M ONE Stop: 04/10/22 15:51 Last Admin: 04/10/22 17:24 Dose: 999 mls/hr Documented By: YVONNE Cefepime HCl (Maxipime) 2,000 mg in 20 mls @ 5 mls/min IV NOW STA; Protocol Stop: 04/10/22 14:54 Last Admin: 04/10/22 17:23 Dose: 5 mls/min Documented By: YVONNE Sodium Chloride (Nss 1000ml) 1,000 mls @ 999 mls/hr IV .Q1H1M ONE Stop: 04/10/22 17:05 Last Admin: 04/10/22 20:31 Dose: 999 mls/hr Documented By: SUBHA Vancomycin HCl 1,500 mg/ (Sodium Chloride) 530 mls @ 200 mls/hr IV NOW ONE; Protocol Stop: 04/10/22 19:38 Last Infusion: 04/10/22 20:02 Dose: 0 mls/hr Documented By: Admin: 04/10/22 17:23 Dose: 200 mls/hr Documented By: YVONNE Imaging Data Radiologist's Impression: Chest X-Ray 04/10/22 12:13 XR chest 2V PA/lateral HISTORY: 76 years-old Male Sepsis acute sepsis COMPARISON: Chest CT 03/27/2022 TECHNIQUE: PA and lateral views of the chest FINDINGS: Cardiomediastinal and hilar silhouettes are within normal limits. Prior median sternotomy and CABG. Calcified mediastinal and hilar lymph nodes. Subtle diffuse reticular nodular densities again noted. Degenerative changes of the shoulders and spine. IMPRESSION: Reticulonodular opacities are redemonstrated along with calcified mediastinal and hilar lymph nodes. Findings are again suggestive of an infectious or inflammatory pneumonitis such as pulmonary sarcoidosis. ACT 112: Negative or not required by law. The above report was generated using voice recognition software. It may contain grammatical, syntax or spelling errors. Electronically signed by: Garcia Vaca M.D. 04/10/2022 1:20 PM Discharge Plan Visit Data Chief Complaint: Testing Request Stated Complaint: NEEDS BLOOD CHECKED ED Provider: Sj,Kevin R Discharge Problem: Fever and neutropenia, AML (acute myeloblastic leukemia), Acute hypotension Patient Disposition: Being Evaluated by Hospitalist Discharge Instructions Interventions: ED Discharge Assessment Last Done: 04/10/22 20:43 : AML (acute myeloblastic leukemia) Qualifiers: Leukemia Active/Remission status: without remission Qualified Code(s): C92.00 - Acute myeloblastic leukemia, not having achieved remission
[2022-04-10] MEDS ORDERED: Patient's HEIGHT &/or WEIGHT Needed SCH (16:15)
[2022-04-10] MEDS ORDERED: VANCOMYCIN HCL 2,000 MG in SODIUM CHLORIDE 0.9% 500 ML IV ONE (16:51)
[2022-04-10] MEDS ORDERED: VANCOMYCIN CONSULT ACTIVE PRN (16:51)
[2022-04-10] MEDS ORDERED: VANCOMYCIN HCL 1,500 MG in SODIUM CHLORIDE 0.9% 500 ML IV ONE (17:00)
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
[2022-04-10] MEDS ORDERED: CEFEPIME 2,000 MG/20 ML VIAL ONE (17:17)
[2022-04-10] MEDS ORDERED: SODIUM CHLORIDE 0.9% 250 ML IV PRN (17:29)
[2022-04-10 18:26] LABS: Appearance Urine Cloudy (Clear); Bacteria Urine Automated Negative (Negative); Bilirubin Urine Negative (Negative); Blood Urine Negative (Negative); Color Urine Dark Yellow; Epithelial Cell Urine Auto >30 /lpf (0-5); Glucose Urine UA Negative (Negative); Ketones Urine Trace (Negative); Leukocyte Esterase Urine Trace (Negative); Nitrite Urine Negative (Negative); Protein Urine 1+ (Negative); Specific Gravity Urine 1.034 (1.000-1.030); Urobilinogen Urine Negative (Negative); pH Urine 5.5 (4.5-7.5)
[2022-04-10 18:50] LABS: ALC (manual) 0.22 K/uL (1.2-3.4); ANC (manual) 0.03 K/uL (1.4-6.5); Blast # (manual) 0.04 K/uL (0-0); Blast Cells % (manual) 14 %; Eosinophils % (manual) 1 %; Lymphocytes # (manual) 0.22 K/uL (1.2-3.4); Lymphocytes % (manual) 73 %; Metamyelocytes % (manual) 1 %; Neutrophils # (manual) 0.03 K/uL (1.4-6.5); Neutrophils % (manual) 11 %; RBC Morphology Unremarkable
[2022-04-10 18:58] LABS: RBC Urine Automated 0-4 /hpf (0-4)
[2022-04-10] MEDS ORDERED: ONDANSETRON 4 MG OD TAB PO PRN (20:42)
[2022-04-10] MEDS ORDERED: POLYETHYLENE (MIRALAX) 17 GM PACK PO PRN (20:42)
[2022-04-10] MEDS ORDERED: NITROGLYCERIN SL 0.4 MG/TAB TAB SL PRN (20:42)
[2022-04-10] MEDS ORDERED: ACETAMINOPHEN 325 MG TAB PO PRN (20:42)
[2022-04-10] MEDS ORDERED: ACETAMINOPHEN 325 MG TAB PO STA (21:21)
[2022-04-10] MEDS: MELATONIN 3 MG TAB PO SCH (22:26)
[2022-04-10] MEDS: ACYCLOVIR 400 MG TAB PO SCH (22:27)
[2022-04-10] MEDS: SODIUM CHLORIDE 1 GM TABLET PO SCH (22:27)
[2022-04-10] MEDS: ASCORBIC ACID 500 MG TAB PO SCH (22:27)
[2022-04-10] MEDS: VORICONAZOLE 200 MG TABLET PO SCH (22:28)
[2022-04-11] MEDS ORDERED: SODIUM CHLORIDE 0.9% 1000ML 500 ML IV ONE (00:23)
[2022-04-11] MEDS: SODIUM CHLORIDE 0.9% 1000ML 1,000 ML IV SCH ×2 (01:12→12:50)
[2022-04-11] MEDS ORDERED: CEFEPIME 2,000 MG in SYRINGE 0 ML IV SCH (02:00)
[2022-04-11 02:26] LABS: A calco-baum cmplx NotReported Not Detected (NotDetected); Bact fragilis Not Reported Not Detected (NotDetected); C auris Not Reported Not Detected (NotDetected); CTX-M Resistant Gene DETECTED (NotDetected); Calbicans Not Reported Not Detected (NotDetected); Candida glabrata Not Reported Not Detected (NotDetected); Candida krusei Not Reported Not Detected (NotDetected); Cneoformans/gatti Not Reported Not Detected (NotDetected); Cparapsilosis Not Reported Not Detected (NotDetected); Ctropicalis Not Reported Not Detected (NotDetected); E cloacae compx Not Reported Not Detected (NotDetected); Efaecalis Not Reported Not Detected (NotDetected); Efaecium Not Reported Not Detected (NotDetected); Enterobacterales DETECTED (NotDetected); Enterobacterales Not Reported DETECTED (NotDetected); Escherichia coli Not Reported DETECTED (NotDetected); H influenzae Not Reported Not Detected (NotDetected); IMP Resistant Gene Not Detected (NotDetected); K aerogenes Not Reported Not Detected (NotDetected); KPC Resistant Gene Not Detected (NotDetected); Koxytoca Not Reported Not Detected (NotDetected); Kpneumoniae grp Not Reported Not Detected (NotDetected); Lmonocyt Not Reported Not Detected (NotDetected); N meningitidis Not Reported Not Detected (NotDetected); NDM Resistant Gene Not Detected (NotDetected); OXA 48 Like Resistant Gene Not Detected (NotDetected); P aeruginosa Not Reported Not Detected (NotDetected); Proteus spp Not Reported Not Detected (NotDetected); Salmonella spp Not Reported Not Detected (NotDetected); Smarcescens Not Reported Not Detected (NotDetected); Staph lugdunensis Not Reported Not Detected (NotDetected); Staph spp. Not Reported Not Detected (NotDetected); Staphaureus Not Reported Not Detected (NotDetected); Staphepi Not Reported Not Detected (NotDetected); Stenmaltophilia Not Reported Not Detected (NotDetected); Strep agal(GrpB) Not Reported Not Detected (NotDetected); Strep pneum Not Reported Not Detected (NotDetected); Strep pyog (GrpA) Not Reported Not Detected (NotDetected); Strep spp Not Reported Not Detected (NotDetected); VIM Resistant Gene Not Detected (NotDetected); mcr-1 Colistin Resistant Gene Not Detected (NotDetected)
[2022-04-11] MEDS: ERTAPENEM SODIUM 1,000 MG in SYRINGE 0 ML IV SCH (04:36)
[2022-04-11] MEDS ORDERED: VANCOMYCIN HCL 1,500 MG in SODIUM CHLORIDE 0.9% 500 ML IV SCH (05:00)
[2022-04-11 08:15] LABS: Hematocrit (blood only) 21.4 % (40.1-51.0); Hemoglobin 7.3 g/dl (14.0-18.0); Mean Corpuscular Hemoglobin 30.8 pg (25.0-34.0); Mean Corpuscular Hgb Conc 34.1 g/dL (32.0-36.0); Mean Corpuscular Volume 90.3 fL (80.0-100.0); Mean Platelet Volume 8.7 fL (9.4-12.4); Platelet Count 16 K/uL (130-400); RDW Coefficient of Variation 15.7 % (11.5-14.5); RDW Standard Deviation 50.5 fL (36.4-46.3); Red Blood Count 2.37 M/uL (4.63-6.08); White Blood Count 0.35 K/ul (4.8-10.8)
[2022-04-11 08:21] LABS: Albumin Globulin Ratio 0.9 (0.9-2); Albumin Level 2.6 gm/dl (3.4-5.0); BUN Creatinine Ratio 23.5 (10-20); Bilirubin,Total 0.5 mg/dl (0.2-1.0); Creatinine Clr Calc Pharmacy 115.5 ml/min; Est GFR (African American) 119.3 ml/min; Globulin 2.9 gm/dl (2.5-4.0); Potassium 4.2 mmol/L (3.5-5.1); Total Protein 5.5 gm/dl (6.0-8.3)
[2022-04-11] MEDS: SODIUM CHLORIDE 1 GM TABLET PO SCH ×2 (09:04→20:23)
[2022-04-11] MEDS: CYANOCOBALAMIN (B-12) 500 MCG TABLET PO SCH (09:05)
[2022-04-11] MEDS: VORICONAZOLE 200 MG TABLET PO SCH ×2 (09:05→20:23)
[2022-04-11] MEDS: ASCORBIC ACID 500 MG TAB PO SCH ×2 (09:05→20:23)
[2022-04-11] MEDS: METOPROLOL SUCC 50MG EXT REL TAB PO SCH (09:05)
[2022-04-11] MEDS: ACYCLOVIR 400 MG TAB PO SCH ×2 (09:05→20:23)
[2022-04-11] MEDS: allopurinoL 300 MG TAB PO SCH (09:05)
--- NOTE | 2022-04-11 10:40 | Pharmacy Report ---
Pharmacy PK ABX Note - Date of Service April 11, 2022 - Assessment and Plan Assessment 76 year old M receiving Vancomycin and Ertapenem empirically for treatment of neutropenic fever. * PMHx significant for AML with most recent chemo last week. Takes Venclexta at home. Chronically on Levofloxacin, Acyclovir and Voriconazole. * Presented with fever of 39.2oC, WBC 0.30, ANC 300, and Procalcitonin 0.45. * Been afebrile x 12 hours now. WBC improved slightly to 0.35 this AM. No ANC. * Urine cx growing gram negative bacilli. Blood cx also growing GNB that BCID2 identified as E. coli with CTX-M gene resistance pointing towards ESBL E. coli. Ertapenem started for this. Plan Vancomycin * Loading dose: 1500 mg IV x 1 * Maintenance dose: 1250 mg IV every 12 hours * Regimen is predicted to achieve target AUC/HETAL of 400-600 mg/L.hr * No level will be ordered unless therapy is to extend beyond 48 hours Ertapenem * 1000 mg IV every 24 hours - appropriate Pharmacy will continue to follow and will adjust dose/frequency as necessary. Thank you. Pharmacy has transitioned to AUC monitoring for vancomycin. AUC/HETAL is the preferred PK/PD target and is associated with decreased risk of nephrotoxicity compared to traditional trough targets.
[2022-04-11] MEDS: VANCOMYCIN HCL 1,250 MG in SODIUM CHLORIDE 0.9% 250 ML IV SCH (18:24)
[2022-04-11] MEDS: MELATONIN 3 MG TAB PO SCH (20:20)
--- NOTE | 2022-04-11 21:32 | Hospitalist Progress Note ---
Date of Service April 11, 2022 Assessment & Plan (1) Acute hypotension: Plan: Presents with sepsis with fever, leukopenia and neutropenia, hypotension. Now with septicemia and UTI. He was having lower abdominal pain with urination prior to admission No port in place Now with Ur cx growing GNR, BCxs with ESBL E. coli on BioFire -continue Invanz and empiric Vanco. If no further growth of Gram positives on cultures by 48 hrs, will dc vanco -tylenol prn fevers/pain -follow final cultures CXR negative Bio fire negative -continue IVFs crystalloid -follow CBC< CMP, Mag in AM Pancytopenia, 2/2 chemotherapy -last chemo one week ago hgb fairly stable today at 7.3--> transfuse if <7 Platelet 9 on admission and received plt transfusion, now at 16 Type and screen ordered, no active bleeding at this time Neutropenic precautions If hemoglobin continues to drop, or drop under 7 transfuse irradiated blood at that time. Consent signed Elevated troponin-peaked at 1500, no CP, no ischemic changes on ECG. This is myocardial demand ischemia in setting of sepsis and mod-severe on last ECHO 01/2022 History of AML currently on chemo will d/w Oncology about next steps as pt reports he had not heard the results of his bone marrow bx and wants to pursue a STEM cell tx -continue prophylactic voriconazole,acyclovir, but holding Levaquin while on IV abx -continue allopurinol Aortic stenosis Moderate to severe with LVEF 60 to 65% Follow volume status, clinically volume depleted on admission - Preload dependent, but at risk for overload. Adjust fluids on clincal reeeval Pulmonary nodules Previously symptomatic, at risk for opportunistic infections Declined invasive procedures at last pulmonary follow-up, especially given low counts and high risk Continue empiric antibiotics as below, will require ongoing follow-up CAD with h/o CABG Aspirin held in the setting of thrombocytopenia and chemo Trop as above Dyslipidemia Patient with rhabdo due to statins in the past, defer at this time Hypertension Amlodipine held for hypotension Metoprolol can continue with hold parameters Hyponatremia Mild, stable, chronic Continue sodium chloride tabs DVT proph-no chemical means due to low plts, SCDs could cause hematoma/bruising Dispo-continued stay on med-tele (2) AML (acute myeloblastic leukemia): (3) Fever and neutropenia: (4) Anemia: (5) Pancytopenia: (6) Generalized weakness: (7) Sepsis: Admission and Anticipated Discharge Date Admission Date: April 10, 2022 Subjective Pt reports feeling so much better this evening. He reports he was having sharp pains across his lower abdomen prior to urinating before he became ill and the pains would improve with urination. Denies CP, SOB, nausea. Is asking for tylenol for the arthritis pain he gets in his shoulders at night especially in the hospital beds. He says his sacral wound is now healed up. Review of Systems Review of Systems: All systems reviewed & are unremarkable except as noted in HPI & below Physical Exam Constitutional: WD/WN, vitals as above ENMT: external ear and nose normal, oropharynx normal Neck: trachea midline, no thyromegaly Respiratory: normal respiratory effort, lungs clear to auscultation Cardiovascular: Rate/Rhythm: regular rate and regular rhythm Heart Sounds: + murmur (2/6 JENNIFER at RUSB) Chest (Breasts): Chest: normal inspection of chest Gastrointestinal (Abdomen): normal bowel sounds, soft, nontender, no hepatosplenomegaly Musculoskeletal: Extremities: extremities normal to inspection; no cyanosis and no clubbing Skin: no rashes, warm and dry Neurologic: moves all extremities and awake; no focal motor deficits Psychiatric: A+Ox3, euthymic affect Lymphatic: no lymphedema Results & Data Results & Data ([facility]) Vital Signs (Past 12 Hours) Vital Signs Temp Pulse Resp BP Pulse Ox O2 Del Method 04/11/22 20:00 36.7 C 72 18 102/58 L 98 Room Air 04/11/22 16:59 36.8 C 84 18 95/57 L 97 Room Air 04/11/22 16:08 84 18 92/52 L 95 Room Air 04/11/22 14:11 86 18 108/66 95 Room Air 04/11/22 12:56 37.2 C 93 H 16 102/58 L 94 Room Air 04/11/22 13:40 91/50 L 04/11/22 13:37 37.5 C 88 18 95 Room Air 04/11/22 10:38 97 H 18 126/60 98 Room Air Laboratory Results 04/11/22 04/11/22 04/11/22 Range/Units 14:39 07:39 07:39 WBC 0.35 L* (4.8-10.8) K/ul RBC 2.37 L (4.63-6.08) M/uL Hgb 7.3 L (14.0-18.0) g/dl Hct 21.4 L (40.1-51.0) % MCV 90.3 (80.0-100.0) fL MCH 30.8 (25.0-34.0) pg MCHC 34.1 (32.0-36.0) g/dL RDW Std Deviation 50.5 H (36.4-46.3) fL RDW Coeff of Marty 15.7 H (11.5-14.5) % Plt Count 16 L* D (130-400) K/uL MPV 8.7 L (9.4-12.4) fL Immature Gran % (Auto) Cancelled Neut % (Auto) Cancelled Lymph % (Auto) Cancelled [place] % (Auto) Cancelled Eos % (Auto) Cancelled Baso % (Auto) Cancelled Neut # (Auto) Cancelled Lymph # (Auto) Cancelled [place] # (Auto) Cancelled Eos # (Auto) Cancelled Baso # (Auto) Cancelled Immature Gran # (Auto) Cancelled Neutrophils % (Manual) Cancelled Band Neutrophils % Cancelled Lymphocytes % (Manual) Cancelled Prolymphocyte % Cancelled Reactive Lymphs % (Man) Cancelled Monocytes % (Manual) Cancelled Eosinophils % (Manual) Cancelled Basophils % (Manual) Cancelled Metamyelocytes % (Man) Cancelled Myelocytes % (Man) Cancelled Promyelocytes % (Man) Cancelled Blast Cells % (Manual) Cancelled Plasma Cell % (Manual) Cancelled Other Cells % Cancelled Nucleated RBC % Cancelled Neutrophils # (Manual) Cancelled Band Neutrophils # Cancelled Total Absolute Neuts Cancelled Lymphocytes # (Manual) Cancelled Prolymphocyte # Cancelled Reactive Lymphs # Cancelled Total Abs Lymphocytes Cancelled Monocytes # (Manual) Cancelled Eosinophils # (Manual) Cancelled Basophils # (Manual) Cancelled Metamyelocytes # (Man) Cancelled Myelocytes # (Manual) Cancelled Promyelocytes # (Man) Cancelled Blast Cells # (Man) Cancelled Plasma Cell # (Manual) Cancelled Other Cells # Cancelled Nucleated RBCs # (Man) Cancelled Hypersegmented Neuts Cancelled Hyposegmented Neuts Cancelled Hypogranular Neuts Cancelled Large Granular Lymphs Cancelled # Lrg Granular Lymphs Cancelled Hairy Cells Cancelled Smudge Cells Cancelled Toxic Granulation Cancelled Toxic Vacuolation Cancelled Dohle Bodies Cancelled Alyssa Rods Cancelled Hypogranular Platelets Cancelled Clumped Platelets Cancelled Giant Platelets Cancelled Platelet Satelliting Cancelled RBC Morphology Cancelled Polychromasia Cancelled Hypochromasia Cancelled Poikilocytosis Cancelled Basophilic Stippling Cancelled Anisocytosis Cancelled Microcytosis Cancelled Macrocytosis Cancelled Spherocytes Cancelled Pappenheimer Bodies Cancelled Sickle Cells Cancelled Target Cells Cancelled Tear Drop Cells Cancelled Ovalocytes Cancelled Stomatocytes Cancelled Manzano-Gypsy Bodies Cancelled Echinocytes Cancelled Acanthocytes (Spur) Cancelled Rouleaux Cancelled RBC Agglutinates Cancelled Schistocytes Cancelled Sezary Cell Cancelled Sodium 140 (136-145) mmol/L Potassium 4.2 (3.5-5.1) mmol/L Chloride 110 H (98-107) mmol/L Carbon Dioxide 25 (21-32) mmol/L Anion Gap 5 (3-11) BUN 12 (6-23) mg/dl Creatinine 0.51 L (0.6-1.4) mg/dl Est Cr Clr Drug Dosing 115.5 ml/min Est GFR ( Amer) 119.3 ml/min Est GFR (Non-Af Amer) 103.0 ml/min BUN/Creatinine Ratio 23.5 H (10-20) Glucose 115 H (70-99(Fasting)) mg/dl Calcium 8.0 L (8.5-10.1) mg/dl Total Bilirubin 0.5 (0.2-1.0) mg/dl AST 17 (13-39) U/L ALT 8 (7-52) U/L Alkaline Phosphatase 55 (34-104) U/L Troponin I High Sens 1426.7 H* 1591.0 H* D (0-20) pg/ml Total Protein 5.5 L (6.0-8.3) gm/dl Albumin 2.6 L (3.4-5.0) gm/dl Globulin 2.9 (2.5-4.0) gm/dl Albumin/Globulin Ratio 0.9 (0.9-2) Enterobacterales (PCR) (NotDetected) E. coli (PCR) (NotDetected) mcr-1 Colistin Res Gene PCR (NotDetected) blaIMP Car res Gene PCR (NotDetected) KPC-Carbap Res Gene PCR (NotDetected) blaNDM Car Res Gene PCR (NotDetected) OXA-48 Carbapenem Resis Gene (PCR) (NotDetected) blaVIM Car Res Gene PCR (NotDetected) CTX-M Gene Resistance (PCR) (NotDetected) Bld Cult ID Panel PCR (NotDetected) Blood Parasites ID Cancelled Blood Type Antibody Screen Crossmatch 04/11/22 04/10/22 04/10/22 Range/Units 01:32 21:27 16:13 WBC (4.8-10.8) K/ul RBC (4.63-6.08) M/uL Hgb (14.0-18.0) g/dl Hct (40.1-51.0) % MCV (80.0-100.0) fL MCH (25.0-34.0) pg MCHC (32.0-36.0) g/dL RDW Std Deviation (36.4-46.3) fL RDW Coeff of Marty (11.5-14.5) % Plt Count (130-400) K/uL MPV (9.4-12.4) fL Immature Gran % (Auto) Neut % (Auto) Lymph % (Auto) [place] % (Auto) Eos % (Auto) Baso % (Auto) Neut # (Auto) Lymph # (Auto) [place] # (Auto) Eos # (Auto) Baso # (Auto) Immature Gran # (Auto) Neutrophils % (Manual) Band Neutrophils % Lymphocytes % (Manual) Prolymphocyte % Reactive Lymphs % (Man) Monocytes % (Manual) Eosinophils % (Manual) Basophils % (Manual) Metamyelocytes % (Man) Myelocytes % (Man) Promyelocytes % (Man) Blast Cells % (Manual) Plasma Cell % (Manual) Other Cells % Nucleated RBC % Neutrophils # (Manual) Band Neutrophils # Total Absolute Neuts Lymphocytes # (Manual) Prolymphocyte # Reactive Lymphs # Total Abs Lymphocytes Monocytes # (Manual) Eosinophils # (Manual) Basophils # (Manual) Metamyelocytes # (Man) Myelocytes # (Manual) Promyelocytes # (Man) Blast Cells # (Man) Plasma Cell # (Manual) Other Cells # Nucleated RBCs # (Man) Hypersegmented Neuts Hyposegmented Neuts Hypogranular Neuts Large Granular Lymphs # Lrg Granular Lymphs Hairy Cells Smudge Cells Toxic Granulation Toxic Vacuolation Dohle Bodies Alyssa Rods Hypogranular Platelets Clumped Platelets Giant Platelets Platelet Satelliting RBC Morphology Polychromasia Hypochromasia Poikilocytosis Basophilic Stippling Anisocytosis Microcytosis Macrocytosis Spherocytes Pappenheimer Bodies Sickle Cells Target Cells Tear Drop Cells Ovalocytes Stomatocytes Manzano-Gypsy Bodies Echinocytes Acanthocytes (Spur) Rouleaux RBC Agglutinates Schistocytes Sezary Cell Sodium (136-145) mmol/L Potassium (3.5-5.1) mmol/L Chloride (98-107) mmol/L Carbon Dioxide (21-32) mmol/L Anion Gap (3-11) BUN (6-23) mg/dl Creatinine (0.6-1.4) mg/dl Est Cr Clr Drug Dosing ml/min Est GFR ( Amer) ml/min Est GFR (Non-Af Amer) ml/min BUN/Creatinine Ratio (10-20) Glucose (70-99(Fasting)) mg/dl Calcium (8.5-10.1) mg/dl Total Bilirubin (0.2-1.0) mg/dl AST (13-39) U/L ALT (7-52) U/L Alkaline Phosphatase (34-104) U/L Troponin I High Sens 692.6 H* D 27.6 H (0-20) pg/ml Total Protein (6.0-8.3) gm/dl Albumin (3.4-5.0) gm/dl Globulin (2.5-4.0) gm/dl Albumin/Globulin Ratio (0.9-2) Enterobacterales (PCR) (NotDetected) E. coli (PCR) (NotDetected) mcr-1 Colistin Res Gene PCR (NotDetected) blaIMP Car res Gene PCR (NotDetected) KPC-Carbap Res Gene PCR (NotDetected) blaNDM Car Res Gene PCR (NotDetected) OXA-48 Carbapenem Resis Gene (PCR) (NotDetected) blaVIM Car Res Gene PCR (NotDetected) CTX-M Gene Resistance (PCR) (NotDetected) Bld Cult ID Panel PCR (NotDetected) Blood Parasites ID Blood Type A Positive Antibody Screen NEGATIVE Crossmatch See Detail 04/10/22 Range/Units 12:38 WBC (4.8-10.8) K/ul RBC (4.63-6.08) M/uL Hgb (14.0-18.0) g/dl Hct (40.1-51.0) % MCV (80.0-100.0) fL MCH (25.0-34.0) pg MCHC (32.0-36.0) g/dL RDW Std Deviation (36.4-46.3) fL RDW Coeff of Marty (11.5-14.5) % Plt Count (130-400) K/uL MPV (9.4-12.4) fL Immature Gran % (Auto) Neut % (Auto) Lymph % (Auto) [place] % (Auto) Eos % (Auto) Baso % (Auto) Neut # (Auto) Lymph # (Auto) [place] # (Auto) Eos # (Auto) Baso # (Auto) Immature Gran # (Auto) Neutrophils % (Manual) Band Neutrophils % Lymphocytes % (Manual) Prolymphocyte % Reactive Lymphs % (Man) Monocytes % (Manual) Eosinophils % (Manual) Basophils % (Manual) Metamyelocytes % (Man) Myelocytes % (Man) Promyelocytes % (Man) Blast Cells % (Manual) Plasma Cell % (Manual) Other Cells % Nucleated RBC % Neutrophils # (Manual) Band Neutrophils # Total Absolute Neuts Lymphocytes # (Manual) Prolymphocyte # Reactive Lymphs # Total Abs Lymphocytes Monocytes # (Manual) Eosinophils # (Manual) Basophils # (Manual) Metamyelocytes # (Man) Myelocytes # (Manual) Promyelocytes # (Man) Blast Cells # (Man) Plasma Cell # (Manual) Other Cells # Nucleated RBCs # (Man) Hypersegmented Neuts Hyposegmented Neuts Hypogranular Neuts Large Granular Lymphs # Lrg Granular Lymphs Hairy Cells Smudge Cells Toxic Granulation Toxic Vacuolation Dohle Bodies Alyssa Rods Hypogranular Platelets Clumped Platelets Giant Platelets Platelet Satelliting RBC Morphology Polychromasia Hypochromasia Poikilocytosis Basophilic Stippling Anisocytosis Microcytosis Macrocytosis Spherocytes Pappenheimer Bodies Sickle Cells Target Cells Tear Drop Cells Ovalocytes Stomatocytes Manzano-Gypsy Bodies Echinocytes Acanthocytes (Spur) Rouleaux RBC Agglutinates Schistocytes Sezary Cell Sodium (136-145) mmol/L Potassium (3.5-5.1) mmol/L Chloride (98-107) mmol/L Carbon Dioxide (21-32) mmol/L Anion Gap (3-11) BUN (6-23) mg/dl Creatinine (0.6-1.4) mg/dl Est Cr Clr Drug Dosing ml/min Est GFR ( Amer) ml/min Est GFR (Non-Af Amer) ml/min BUN/Creatinine Ratio (10-20) Glucose (70-99(Fasting)) mg/dl Calcium (8.5-10.1) mg/dl Total Bilirubin (0.2-1.0) mg/dl AST (13-39) U/L ALT (7-52) U/L Alkaline Phosphatase (34-104) U/L Troponin I High Sens (0-20) pg/ml Total Protein (6.0-8.3) gm/dl Albumin (3.4-5.0) gm/dl Globulin (2.5-4.0) gm/dl Albumin/Globulin Ratio (0.9-2) Enterobacterales (PCR) DETECTED A (NotDetected) E. coli (PCR) DETECTED A (NotDetected) mcr-1 Colistin Res Gene PCR Not Detected (NotDetected) blaIMP Car res Gene PCR Not Detected (NotDetected) KPC-Carbap Res Gene PCR Not Detected (NotDetected) blaNDM Car Res Gene PCR Not Detected (NotDetected) OXA-48 Carbapenem Resis Gene (PCR) Not Detected (NotDetected) blaVIM Car Res Gene PCR Not Detected (NotDetected) CTX-M Gene Resistance (PCR) DETECTED A* (NotDetected) Bld Cult ID Panel PCR See PCR Comment (NotDetected) Blood Parasites ID Blood Type Antibody Screen Crossmatch PG Care Time/CCT Total # of Minutes Spent Total Time Spent with Patient: Total time spent is greater than 50% in coordination of care (as documented) at patient's floor/unit and/or counseling patient: Coding Level of Care Code 51677 Subseq Hosp Care Lvl 3 Diagnoses Acute hypotension I95.9 AML (acute myeloblastic leukemia) C92.00 Leukemia Active/Remission status: without remission Fever and neutropenia D70.9; R50.81 Anemia D64.9 Anemia type: unspecified type Pancytopenia D61.818 Generalized weakness R53.1 Sepsis A41.9 (1) AML (acute myeloblastic leukemia) Leukemia Active/Remission status: without remission Qualified Code(s): C92.00 - Acute myeloblastic leukemia, not having achieved remission (2) Anemia Anemia type: unspecified type Qualified Code(s): D64.9 - Anemia, unspecified
[2022-04-11] MEDS: ACETAMINOPHEN 500 MG TAB PO PRN (21:34)
[2022-04-12] MEDS: ERTAPENEM SODIUM 1,000 MG in SYRINGE 0 ML IV SCH (04:07)
[2022-04-12] MEDS: VANCOMYCIN HCL 1,250 MG in SODIUM CHLORIDE 0.9% 250 ML IV SCH ×2 (06:00→18:57)
[2022-04-12 07:49] LABS: White Blood Count 0.39 K/ul (4.8-10.8)
[2022-04-12 07:50] LABS: Platelet Count 13 K/uL (130-400)
[2022-04-12 07:51] LABS: Hematocrit (blood only) 20.5 % (40.1-51.0); Mean Corpuscular Hemoglobin 30.3 pg (25.0-34.0); Mean Corpuscular Hgb Conc 34.1 g/dL (32.0-36.0); Mean Corpuscular Volume 88.7 fL (80.0-100.0); RDW Standard Deviation 51.3 fL (36.4-46.3); Red Blood Count 2.31 M/uL (4.63-6.08)
[2022-04-12 08:04] LABS: Albumin Globulin Ratio 0.9 (0.9-2); Albumin Level 2.4 gm/dl (3.4-5.0); BUN Creatinine Ratio 22.2 (10-20); Bilirubin,Total 0.3 mg/dl (0.2-1.0); Creatinine Clr Calc Pharmacy 130.9 ml/min; Est GFR (African American) 125.6 ml/min; Est GFR (Non-African American) 108.4 ml/min; Globulin 2.6 gm/dl (2.5-4.0); Magnesium 1.8 mg/dl (1.7-2.4); Potassium 3.7 mmol/L (3.5-5.1)
[2022-04-12] MEDS: ASCORBIC ACID 500 MG TAB PO SCH ×2 (08:37→20:11)
[2022-04-12] MEDS: CYANOCOBALAMIN (B-12) 500 MCG TABLET PO SCH (08:38)
[2022-04-12] MEDS: SODIUM CHLORIDE 1 GM TABLET PO SCH ×2 (08:39→20:11)
[2022-04-12] MEDS: VORICONAZOLE 200 MG TABLET PO SCH ×2 (08:39→20:12)
[2022-04-12] MEDS: METOPROLOL SUCC 50MG EXT REL TAB PO SCH (08:40)
[2022-04-12] MEDS: ACYCLOVIR 400 MG TAB PO SCH ×2 (08:40→20:10)
[2022-04-12] MEDS: allopurinoL 300 MG TAB PO SCH (08:40)
[2022-04-12] MEDS ORDERED: SODIUM CHLORIDE 0.9% 250 ML IV PRN (08:56)
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
[2022-04-12] MEDS: ACETAMINOPHEN 500 MG TAB PO PRN ×2 (10:11→22:01)
[2022-04-12 15:02] LABS: Blood Urine Negative (Negative); RBC Urine Automated 0-4 /hpf (0-4)
--- NOTE | 2022-04-12 17:47 | Hospitalist Progress Note ---
Date of Service April 12, 2022 Assessment & Plan (1) Acute hypotension: Plan: Presents with sepsis with fever, leukopenia and neutropenia, hypotension. Now with ESBL E. coli septicemia and UTI. He was having lower abdominal pain with urination prior to admission No port in place Ur cx and BCxs with ESBL E. coli -continue Invanz and empiric Vanco. If no further growth of Gram positives on cultures by 48 hrs, will dc vanco -tylenol prn fevers/pain -repeat BCxs today to ensure resolving given ongoing fever CXR negative viral resp panel Bio fire negative -dc IVFs -follow CBC,BMP, Mag in AM Pancytopenia, 2/2 chemotherapy -last chemo one week ago hgb down to 7.0--> transfuse 1 unit PRBCs today -had fever during transfusion but do not suspect from transfusion. Nonetheless, will submit labs for transfusion reaction. He is stable and doing well after t ylenol administration Platelet 9 on admission and received plt transfusion, now at 13. Oncology recommends keep above 10 in hospital and above 15 if going home soon - no active bleeding at this time Neutropenic precautions -follow CBC Elevated troponin-peaked at 1500, no CP, no ischemic changes on ECG. This is myocardial demand ischemia in setting of sepsis and mod-severe on last ECHO 01/2022 History of AML currently on chemo will d/w Oncology about next steps as pt reports he had not heard the results of his bone marrow bx and wants to pursue a STEM cell tx-=->Appreciate Heme/Onc c onsult-plan to treat infection and then resume chemo when ANC> 500 however given current performance status, suspect not likely for stem cell tx candidate and would consider pursuing hospice at that point if AML not responding to treatment. BMBx 03/16 with 8-% bone marrow involvement -continue prophylactic voriconazole,acyclovir, but holding Levaquin while on IV abx -continue allopurinol Aortic stenosis Moderate to severe with LVEF 60 to 65% Follow volume status, clinically volume depleted on admission Pulmonary nodules Previously symptomatic, at risk for opportunistic infections Declined invasive procedures at last pulmonary follow-up, especially given low counts and high risk Continue empiric antibiotics as below, will require ongoing follow-up CAD with h/o CABG Aspirin held in the setting of thrombocytopenia and chemo Trop as above Dyslipidemia Patient with rhabdo due to statins in the past, defer at this time Hypertension Amlodipine held for hypotension Metoprolol can continue with hold parameters Hyponatremia Mild, stable, chronic Continue sodium chloride tabs -follow BMP DVT proph-no chemical means due to low plts, SCDs could cause hematoma/bruising Dispo-continued stay on med-tele (2) AML (acute myeloblastic leukemia): (3) Fever and neutropenia: (4) Anemia: (5) Pancytopenia: (6) Generalized weakness: (7) Sepsis: Admission and Anticipated Discharge Date Admission Date: April 10, 2022 Subjective Had fevers today again, tolerated PRBC transfusion. Feeling much better now after fever down. No significant pain, is eating. Review of Systems Review of Systems: All systems reviewed & are unremarkable except as noted in HPI & below Physical Exam Constitutional: WD/WN, vitals as above Eyes: + anicteric sclerae Neck: trachea midline, no thyromegaly Respiratory: normal respiratory effort, lungs clear to auscultation Cardiovascular: Rate/Rhythm: regular rate and regular rhythm Heart Sounds: + murmur (2/6 JENNIFER at [facility]) Chest (Breasts): Chest: normal inspection of chest Gastrointestinal (Abdomen): normal bowel sounds, soft, nontender, no hepatosplenomegaly Musculoskeletal: Extremities: extremities normal to inspection; no cyanosis and no clubbing Skin: no rashes, warm and dry Neurologic: moves all extremities and awake; no focal motor deficits Psychiatric: A+Ox3, euthymic affect Lymphatic: no lymphedema Results & Data Results & Data ([facility]) Vital Signs (Past 12 Hours) Vital Signs Temp Pulse Pulse Resp BP BP Pulse Ox 04/12/22 14:45 36.7 C 82 18 101/55 L 95 04/12/22 13:45 37.0 C 83 18 126/61 96 04/12/22 12:45 38.8 C H 97 H 18 152/72 H 96 04/12/22 11:45 37.9 C H 103 H 18 152/72 H 95 04/12/22 11:44 37.4 C 98 H 20 135/68 94 04/12/22 11:15 39.4 C H 109 H 18 132/68 96 04/12/22 11:00 37.0 C 95 H 18 138/69 95 04/12/22 10:58 37.0 C 95 H 18 138/69 95 04/12/22 10:41 36.9 C 100 H 20 160/77 H 95 04/12/22 08:23 36.5 C 70 20 109/62 97 O2 Del Method 04/12/22 14:45 04/12/22 13:45 04/12/22 12:45 04/12/22 11:45 04/12/22 11:44 04/12/22 11:15 04/12/22 11:00 04/12/22 10:58 04/12/22 10:41 04/12/22 08:23 Room Air Laboratory Results labs reviewed PG Care Time/CCT Total # of Minutes Spent Total Time Spent with Patient: Total time spent is greater than 50% in coordination of care (as documented) at patient's floor/unit and/or counseling patient: Coding Level of Care Code 00798 Subseq Hosp Care Lvl 3 Diagnoses Acute hypotension I95.9 AML (acute myeloblastic leukemia) C92.00 Leukemia Active/Remission status: without remission Fever and neutropenia D70.9; R50.81 Anemia D64.9 Anemia type: unspecified type Pancytopenia D61.818 Generalized weakness R53.1 Sepsis A41.9 (1) AML (acute myeloblastic leukemia) Leukemia Active/Remission status: without remission Qualified Code(s): C92.00 - Acute myeloblastic leukemia, not having achieved remission (2) Anemia Anemia type: unspecified type Qualified Code(s): D64.9 - Anemia, unspecified
[2022-04-12] MEDS: MELATONIN 3 MG TAB PO SCH (20:13)
[2022-04-13] MEDS: ERTAPENEM SODIUM 1,000 MG in SYRINGE 0 ML IV SCH (04:06)
[2022-04-13] MEDS: VANCOMYCIN HCL 1,250 MG in SODIUM CHLORIDE 0.9% 250 ML IV SCH (06:00)
[2022-04-13] MEDS: SODIUM CHLORIDE 1 GM TABLET PO SCH ×2 (08:23→21:22)
[2022-04-13] MEDS: ACYCLOVIR 400 MG TAB PO SCH ×2 (08:23→21:23)
[2022-04-13] MEDS: ACETAMINOPHEN 500 MG TAB PO PRN ×2 (08:23→18:42)
[2022-04-13] MEDS: ASCORBIC ACID 500 MG TAB PO SCH ×2 (08:23→21:23)
[2022-04-13] MEDS: METOPROLOL SUCC 50MG EXT REL TAB PO SCH (08:23)
[2022-04-13] MEDS: allopurinoL 300 MG TAB PO SCH (08:23)
[2022-04-13] MEDS: VORICONAZOLE 200 MG TABLET PO SCH ×2 (08:24→21:24)
[2022-04-13] MEDS: CYANOCOBALAMIN (B-12) 500 MCG TABLET PO SCH (08:24)
[2022-04-13 10:34] LABS: Hematocrit (blood only) 21.2 % (40.1-51.0); Hemoglobin 7.3 g/dl (14.0-18.0); Mean Corpuscular Hemoglobin 29.9 pg (25.0-34.0); Mean Corpuscular Hgb Conc 34.4 g/dL (32.0-36.0); Mean Corpuscular Volume 86.9 fL (80.0-100.0); Mean Platelet Volume 13.9 fL (9.4-12.4); Platelet Count 17 K/uL (130-400); RDW Coefficient of Variation 15.1 % (11.5-14.5); RDW Standard Deviation 46.5 fL (36.4-46.3); Red Blood Count 2.44 M/uL (4.63-6.08)
[2022-04-13 10:47] LABS: BUN Creatinine Ratio 16.7 (10-20); Calcium 8.3 mg/dl (8.5-10.1); Creatinine Clr Calc Pharmacy 122.7 ml/min; Est GFR (African American) 122.3 ml/min; Est GFR (Non-African American) 105.6 ml/min; Magnesium 1.6 mg/dl (1.7-2.4); Potassium 3.2 mmol/L (3.5-5.1)
--- NOTE | 2022-04-13 12:18 | Infectious Disease Consult ---
Date of Consultation April 13, 2022 Assessment & Plan (1) Sepsis: (2) Fever and neutropenia: (3) AML (acute myeloblastic leukemia): (4) Pancytopenia: Plan This is a 76 year old man with a past medical history if AML diagnosed in 11/2021 sp 3 cycles of decitabine ( last received 03/27/22-03/31/22, with residual disease on recent bone marrow biopsy( 80% aml on bm) , recently started on venotoclax due to poor performance, on acyclovir, voriconazole and levofloxacin prophylaxis,, CAD s/p CABG, sp multiple recent hospitalization since 11/2021 for pancytopenia, then CONS bacteremia with sacral wound, and more recently syncope,Aortic Stenosis, recent neck mass, chronic pulmonary nodules who presents with increased frequency of fevers. He reports daily fevers and night sweats since diagnosis of AML in 11/2021. His fevers usually break with Tylenol but did not prior to admission. His fevers were as high as 101 at home with shaking chills. He denies cough, rash, nausea, vomiting, abdominal pain, change in bowel habits, headaches, chest pain, bleedinh. His neck mass and sacral wound resolved. He admits to increased urinary frequency without dysuria priort to admission that has resolved. He has some minor skin abrasions but no open wounds. On admission, he was afebrile but has had fevers since with a t max of 39.4. HR 130, Bp 85/39, O2 sat 96% on Ra. Labs noted for a wbc o 0.3, H/H 7.7/22.7. platelets of 9, cr of 0.73 anc 0.03. Respiratory pcr panel is negative. BC noted for bottles positive for ESBL ecoli and UC noted for > 100,000 cfu of ESBL ecoli . CXr noted for redemonstration of reticulonodular opacities along with calcified mediastinal and hilar lymph nodes. He received iVf resuscitation with improvement in Bp to 113 and improvement in HR. He is currently on IV vancomycin and ertapenem. He remains on prophylaxis of voriconazole and acyclovir. Levaquin was held. ID consulted for ESBL ecoli bacteremia and UTI andneed to switch to Meropenem On my interview, he reports feeling well. He feels that the pattern of his fevers is back to his baseline and is responsive to Tylenol. He no longer complains of urinary frequency. Micro: BC 04/10 04/19 bottles Esbl ecoli BC 04/12 NGTD UC 04/10 > 100,000 CFU ESBL ecoli ESBL E col RX M.I.C. --- --------- Amox/Clav S <=8/ Ampicillin R >16 Amp/Sul S <=8/4 Cefazolin R >16 Cefepime R >16 Cefotaxime R >16 Ceftriaxone R >2 Ciprofloxacin R >2 Ertapenem S <=0.5 Gentamicin S <=4 Levofloxacin R >4 Meropenem S <=1 Tobramycin S <=4 Trimeth/Sulfa S <=/38 Pip/Tazo S <=16 S = SENSITIVE I = INTERMEDIATE R = RESISTANT ABX ertapenem 04/10-ongoing vancomycin 04/10- ongoing voriconazole home med acyclovir home med levaquin ( home med, on hold ) 1.ESBL ecoli sepsis 2/2 urinary source -BC in 04/19 bottles and UC + Esbl ecoli on 04/10 -BC sterile to date on 04/12 - increased urinary frequency prior to admission, no cva ttp - no kapoor, no port. 2.AML, on chemotherapy - reports night sweats , fevers since November 2021 -last cycle of chemo 03/27-03/31. -80% residual disease on recent bone marrow on 03/16/22 3.Neutropenic fever 4. Profound neutropenia and Pancytopenia 2/2 AML and chemotherapy 5. Pulmonary nodules- chronic, unchanged since 11/16/21 6. Neck mass- resolved - no palpable mass on exam. Pt completed a course of Augmentin outpatient per his pcp 7. Sacral wound - resolved 8. History of CONS (oxacillin sensitive) bacteremia s/p treatment - no port, no hardware - completed 2 weeks Ancef in 02/04 Discussion: The likely source of the 04/19 Esbl ecoli bacteremia is a UTI as he has the same strain of ESBL ecoli in the urine. He reports increased urinary urgency and frequency prior to admission. His sacral wound has healed and he no longer has a neck mass. He has no kapoor, hardware, picc line or port in place. He admits to chronic fever and night sweats since 11/2021. The pattern of his fevers changed a few days prior to admission which likely reflected underlying infection. He reports that the fever and sweating pattern has returned to its baseline since initiation of antibitotics. His Bc remain sterile since 04/12 ( not yet finalized). He is currently on Ertapenem which is appropriate coverage for the ESBL ecoli infection. He has pulmonary nodules on imaging that are unchanged. Recommendation Continue Ertapenem. Anticipate 2 weeks of ertapenem 1 g iv daily for 2 weeks from sterile BC ( 04/12 so far) for ESBL ecoli septicemia if no continued bacteremia--with repeat BC 1 week post completion. Discontinue Iv vancomycin since no evidence of Gram positive/MrSA infection Continue voriconazole and acyclovir prophylaxis Can restart home dose of Levaquin prophylaxis if no QTC prolongation as Ertapenem does NOT cover Pseudomonas ( qtc on 04/10- 463) Follow up 04/12 BC to ensure it remains sterile Continue Neutropenic precautions Although no change in pulmonary nodules on imaging ( cxr), would closely monitor outpatient with CT imaging (last Ct chest 03/27 reviewed) . Thank you for allowing me to participate in the care of your patient. Infectious Disease will continue to follow with you. Adrian Springer MD, MPH Infectious Disease [facility] Consultation Information Consultation was provided via telemedicine using two-way real-time interactive telecommunication between the patient and the telemedicine provider. For the duration of the visit, the provider was performing the assessment from a different facility than the patient. This includesuse of bluetooth stethoscope forauscultationperformed by the telepresenter that the telemedicine provider can hear if described in the physical exam. Business Practices Officer contact information: Please call [facility] Center . (Phone Number For Physician Use Only) After establishing a telemedicine visit, patient was: Patient/authorized rep acknowledged consent and understanding and Gave permission to continue te [facility] session Time Spent w Inpatient: 80 minutes History of Present Illness Reason for Consultation: ESBL EColi bacteremia and UTI Requesting Physician: Denice Patel MD Attending Physician: Denice Patel MD History of Present Illness This is a 76 year old man with a past medical history if AML diagnosed in 11/2021 sp 3 cycles of decitabine ( last received 03/27/22-03/31/22, with residual disease on recent bone marrow biopsy( 80% aml on bm) , recently started on venotoclax due to poor performance, on acyclovir, voriconazole and levofloxacin prophylaxis,, CAD s/p CABG, sp multiple recent hospitalization since 11/2021 for pancytopenia, then CONS bacteremia with sacral wound, and more recently syncope,Aortic Stenosis, recent neck mass, chronic pulmonary nodules who presents with increased frequency of fevers. He reports daily fevers and night sweats since diagnosis of AML in 11/2021. His fevers usually break with Tylenol but did not prior to admission. His fevers were as high as 101 at home with shaking chills. He denies cough, rash, nausea, vomiting, abdominal pain, change in bowel habits, headaches, chest pain, bleedinh. His neck mass and sacral wound resolved. He admits to increased urinary frequency without dysuria priort to admission that has resolved. He has some minor skin abrasions but no open wounds. On admission, he was afebrile but has had fevers since with a t max of 39.4. HR 130, Bp 85/39, O2 sat 96% on Ra. Labs noted for a wbc o 0.3, H/H 7.7/22.7. platelets of 9, cr of 0.73 anc 0.03. Respiratory pcr panel is negative. BC noted for bottles positive for ESBL ecoli and UC noted for > 100,000 cfu of ESBL ecoli . CXr noted for redemonstration of reticulonodular opacities along with calcified mediastinal and hilar lymph nodes. He received iVf resuscitation with improvement in Bp to 113 and improvement in HR. He is currently on IV vancomycin and ertapenem. He remains on prophylaxis of voriconazole and acyclovir. Levaquin was held. ID consulted for ESBL ecoli bacteremia and UTI andneed to switch to Meropenem On my interview, he reports feeling well. He feels that the pattern of his fevers is back to his baseline and is responsive to Tylenol. He no longer complains of urinary frequency. Allergies Allergy/AdvReac Type Severity Reaction Status Date / Time diphenhydramine AdvReac Severe ITCHING Verified 04/10/22 16:45 [From Benadryl] losartan AdvReac Intermediate FATIGUE, Verified 04/10/22 16:45 CHEST PAIN oxycodone [From Percocet] AdvReac Intermediate Confusion Verified 04/10/22 16:45 lisinopril AdvReac Mild FATIGUE Verified 04/10/22 16:45 Home Medications Medication Instructions Recorded Confirmed Type ascorbic acid (vitamin C) 500 mg 500 mg PO BID 02/11/19 04/10/22 History tablet nitroglycerin 0.4 mg sublingual 0.4 mg sublingual Q5M PRN Chest 02/11/19 04/10/22 History tablet Pain #1 tab cyanocobalamin (vitamin B-12) 1,000 mcg PO QAM 12/12/21 04/10/22 History 1,000 mcg capsule metoprolol succinate 100 mg 50 mg PO QAM 12/12/21 04/10/22 History tablet,extended release 24 hr ondansetron 4 mg disintegrating 4 mg PO Q6H PRN Nausea 12/12/21 04/10/22 History tablet polyethylene glycol 3350 17 gram 17 g PO DAILY PRN Constipation 12/12/21 04/10/22 History oral powder packet acyclovir 400 mg tablet 400 mg PO BID #14 tabs 12/15/21 04/10/22 Rx levofloxacin 500 mg tablet 500 mg PO QAM #7 tabs 12/15/21 04/10/22 Rx voriconazole 200 mg tablet (Vfend) 200 mg PO BID #14 tabs 01/19/22 04/10/22 Rx allopurinol 300 mg tablet 300 mg PO QAM #90 tabs 02/01/22 04/10/22 Rx melatonin 3 mg tablet 6 mg PO HS #60 tabs 02/10/22 04/10/22 Rx sodium chloride 1 gram tablet 1 g PO BID #180 tabs 03/28/22 04/10/22 Rx Patient History Medical History AML (acute myeloblastic leukemia) Aortic stenosis Arteriosclerotic coronary artery disease Benign enlargement of prostate Carotid artery plaque Dyslipidemia Hypertension Past myocardial infarction Syncope Tachycardia Tubulovillous adenoma of colon Surgical History History of cardiac cath cath stent 1 first obtuse marginal branch, type bare metal cath stent 2 first saphenous vein graft, type drug-eluting History of colonoscopy History of coronary artery bypass graft x 3 History of hemorrhoidectomy S/P CABG x 3 Family History Brother Coronary heart disease 5 brothers Father Myocardial infarction Denies family history of Ovarian cancer Prostate cancer Breast cancer Colorectal cancer Lung disease Social History Smoking Status: Never smoker Tobacco Type: Cigarettes Age Started Using Tobacco: 14; Age Quit Using Tobacco: 21; packs per day: 1; Second Hand Exposure: No; Hx Alcohol Use: No Hx Substance Use: No Preferred Language: [place] Communication Ability: Effective Visual Impairment: Limited Hearing Ability: Use of Hearing Aid Executive Cyber Leader Required: No Beliefs That Will Affect Care: None marital status: Current Living Situation: Spouse Current Living Situation Comment: Lives with in a house has a hospital bed downstairs current occupational status: employed 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 Pertinent positives as per HPI. Physical Exam Constitutional: NAD, pleasant and conversant. Sweating Eyes: Anicteric sclera PERRl, EOMI ENMT: Moist mucous membranes, no oral lesions, + dentures, throat clear Neck: Supple, No mass noted ( prior mass not appreciated) Respiratory: Clear throughout. No rhonchi, rales or wheeze Cardiovascular: S1 S2 [place], RRR, + 3/6 Fe Gastrointestinal (Abdomen): soft, Nt, ND, no guarding, no rebound, No suprapubic tenderness Musculoskeletal: Moves all extremities, BL hand with trace edema, No LE edema Skin: skin abrasions and hand skin tears, LLE incision at Prior cath site, well healed No open wounds. Sacral wound healed- not open or tender to touch Neurologic: Awake , alert oriented times 3 Psychiatric: Appropriate, cooperative Genitourinary: No cva tenderness, NO kapoor, no inguinal adenopathy Results & Data ([facility]) Vital Signs (Past 12 Hours) Vital Signs Temp Pulse Pulse Pulse Resp BP BP 04/13/22 10:01 37.5 C 04/13/22 08:22 38.8 C H 111 H 18 136/73 04/13/22 07:14 82 04/13/22 01:35 37.5 C 86 18 127/65 Pulse Ox O2 Del Method 04/13/22 10:01 04/13/22 08:22 93 Room Air 04/13/22 07:14 04/13/22 01:35 95 Room Air Laboratory Results Laboratory Results - last 48 hr 04/10/22 04/11/22 04/12/22 16:13 14:39 06:56 WBC RBC Hgb Hct MCV MCH MCHC RDW Std Deviation RDW Coeff of Marty Plt Count MPV Immature Gran % (Auto) Neut % (Auto) Lymph % (Auto) [place] % (Auto) Eos % (Auto) Baso % (Auto) Neut # (Auto) Lymph # (Auto) [place] # (Auto) Eos # (Auto) Baso # (Auto) Immature Gran # (Auto) Neutrophils % (Manual) Band Neutrophils % Lymphocytes % (Manual) Prolymphocyte % Reactive Lymphs % (Man) Monocytes % (Manual) Eosinophils % (Manual) Basophils % (Manual) Metamyelocytes % (Man) Myelocytes % (Man) Promyelocytes % (Man) Blast Cells % (Manual) Plasma Cell % (Manual) Other Cells % Nucleated RBC % Neutrophils # (Manual) Band Neutrophils # Total Absolute Neuts Lymphocytes # (Manual) Prolymphocyte # Reactive Lymphs # Total Abs Lymphocytes Monocytes # (Manual) Eosinophils # (Manual) Basophils # (Manual) Metamyelocytes # (Man) Myelocytes # (Manual) Promyelocytes # (Man) Blast Cells # (Man) Plasma Cell # (Manual) Other Cells # Nucleated RBCs # (Man) Hypersegmented Neuts Hyposegmented Neuts Hypogranular Neuts Large Granular Lymphs # Lrg Granular Lymphs Hairy Cells Smudge Cells Toxic Granulation Toxic Vacuolation Dohle Bodies Alyssa Rods Hypogranular Platelets Clumped Platelets Giant Platelets Platelet Satelliting RBC Morphology Polychromasia Hypochromasia Poikilocytosis Basophilic Stippling Anisocytosis Microcytosis Macrocytosis Spherocytes Pappenheimer Bodies Sickle Cells Target Cells Tear Drop Cells Ovalocytes Stomatocytes [place] Bodies Echinocytes Acanthocytes (Spur) Rouleaux RBC Agglutinates Schistocytes Sezary Cell Sodium 139 Potassium 3.7 Chloride 109 H Carbon Dioxide 25 Anion Gap 5 BUN 10 Creatinine 0.45 L Est Cr Clr Drug Dosing 130.9 Est GFR ( Amer) 125.6 Est GFR (Non-Af Amer) 108.4 BUN/Creatinine Ratio 22.2 H Glucose 98 Calcium 8.0 L Magnesium 1.8 Total Bilirubin 0.3 AST 18 ALT 10 Alkaline Phosphatase 50 Troponin I High Sens 1426.7 H* Total Protein 5.0 L Albumin 2.4 L Globulin 2.6 Albumin/Globulin Ratio 0.9 Urine Blood Urine RBC (Auto) Blood Parasites ID Blood Type A Positive Antibody Screen NEGATIVE Crossmatch See Detail Transfusion React Date Transfusion React Time Tx React Symptoms Reaction Clerical Check Lab Clerical Err Check React Component Return Volume Returned Pre-Trans Blood Type Pre-Trans Vis Hemolysis Pre-Trans [place]O Pre-Trans [place] IgG Pre-Trans [place] Poly Pre-Trans [place] C3b, C3d Post-Trans Blood Type Post-Tx Visible Hemolys Post-Trans [place] Post-Trans [place] IgG Post-Trans [place] Poly Post-Trans [place] C3b, C3d Post-Trans Ur Hemoglobin Reaction Path Interpret Transfusion Serv Com 04/12/22 04/12/22 04/12/22 06:56 13:12 14:06 WBC 0.39 L* RBC 2.31 L Hgb 7.0 L Hct 20.5 L* MCV 88.7 MCH 30.3 MCHC 34.1 RDW Std Deviation 51.3 H RDW Coeff of Marty 16.0 H Plt Count 13 L* MPV 10.0 Immature Gran % (Auto) Cancelled Neut % (Auto) Cancelled Lymph % (Auto) Cancelled [place] % (Auto) Cancelled Eos % (Auto) Cancelled Baso % (Auto) Cancelled Neut # (Auto) Cancelled Lymph # (Auto) Cancelled [place] # (Auto) Cancelled Eos # (Auto) Cancelled Baso # (Auto) Cancelled Immature Gran # (Auto) Cancelled Neutrophils % (Manual) Cancelled Band Neutrophils % Cancelled Lymphocytes % (Manual) Cancelled Prolymphocyte % Cancelled Reactive Lymphs % (Man) Cancelled Monocytes % (Manual) Cancelled Eosinophils % (Manual) Cancelled Basophils % (Manual) Cancelled Metamyelocytes % (Man) Cancelled Myelocytes % (Man) Cancelled Promyelocytes % (Man) Cancelled Blast Cells % (Manual) Cancelled Plasma Cell % (Manual) Cancelled Other Cells % Cancelled Nucleated RBC % Cancelled Neutrophils # (Manual) Cancelled Band Neutrophils # Cancelled Total Absolute Neuts Cancelled Lymphocytes # (Manual) Cancelled Prolymphocyte # Cancelled Reactive Lymphs # Cancelled Total Abs Lymphocytes Cancelled Monocytes # (Manual) Cancelled Eosinophils # (Manual) Cancelled Basophils # (Manual) Cancelled Metamyelocytes # (Man) Cancelled Myelocytes # (Manual) Cancelled Promyelocytes # (Man) Cancelled Blast Cells # (Man) Cancelled Plasma Cell # (Manual) Cancelled Other Cells # Cancelled Nucleated RBCs # (Man) Cancelled Hypersegmented Neuts Cancelled Hyposegmented Neuts Cancelled Hypogranular Neuts Cancelled Large Granular Lymphs Cancelled # Lrg Granular Lymphs Cancelled Hairy Cells Cancelled Smudge Cells Cancelled Toxic Granulation Cancelled Toxic Vacuolation Cancelled Dohle Bodies Cancelled Alyssa Rods Cancelled Hypogranular Platelets Cancelled Clumped Platelets Cancelled Giant Platelets Cancelled Platelet Satelliting Cancelled RBC Morphology Cancelled Polychromasia Cancelled Hypochromasia Cancelled Poikilocytosis Cancelled Basophilic Stippling Cancelled Anisocytosis Cancelled Microcytosis Cancelled Macrocytosis Cancelled Spherocytes Cancelled Pappenheimer Bodies Cancelled Sickle Cells Cancelled Target Cells Cancelled Tear Drop Cells Cancelled Ovalocytes Cancelled Stomatocytes Cancelled [place] Bodies Cancelled Echinocytes Cancelled Acanthocytes (Spur) Cancelled Rouleaux Cancelled RBC Agglutinates Cancelled Schistocytes Cancelled Sezary Cell Cancelled Sodium Potassium Chloride Carbon Dioxide Anion Gap BUN Creatinine Est Cr Clr Drug Dosing Est GFR ( Amer) Est GFR (Non-Af Amer) BUN/Creatinine Ratio Glucose Calcium Magnesium Total Bilirubin AST ALT Alkaline Phosphatase Troponin I High Sens Total Protein Albumin Globulin Albumin/Globulin Ratio Urine Blood Negative Urine RBC (Auto) 0-4 Blood Parasites ID Cancelled Blood Type Antibody Screen Crossmatch Transfusion React Date 04-12-2022 Transfusion React Time 1230 Tx React Symptoms FEVER Reaction Clerical Check None Found Lab Clerical Err Check None Found React Component Return PCLRIRR Volume Returned 150 ML Pre-Trans Blood Type A POSITIVE Pre-Trans Vis Hemolysis No Pre-Trans [place] Negative Pre-Trans [place] IgG Neg Pre-Trans [place] Poly Neg Pre-Trans [place] C3b, C3d Neg Post-Trans Blood Type A POSITIVE Post-Tx Visible Hemolys No Post-Trans [place] Negative Post-Trans [place] IgG Neg Post-Trans [place] Poly Neg Post-Trans [place] C3b, C3d Neg Post-Trans Ur Hemoglobin Reaction Path Interpret Transfusion Serv Com 04/13/22 04/13/22 04/13/22 09:58 09:58 09:58 WBC 0.30 L* RBC 2.44 L Hgb 7.3 L Hct 21.2 L MCV 86.9 MCH 29.9 MCHC 34.4 RDW Std Deviation 46.5 H RDW Coeff of Marty 15.1 H Plt Count 17 L* MPV 13.9 H Immature Gran % (Auto) Cancelled Neut % (Auto) Cancelled Lymph % (Auto) Cancelled [place] % (Auto) Cancelled Eos % (Auto) Cancelled Baso % (Auto) Cancelled Neut # (Auto) Cancelled Lymph # (Auto) Cancelled [place] # (Auto) Cancelled Eos # (Auto) Cancelled Baso # (Auto) Cancelled Immature Gran # (Auto) Cancelled Neutrophils % (Manual) Cancelled Band Neutrophils % Cancelled Lymphocytes % (Manual) Cancelled Prolymphocyte % Cancelled Reactive Lymphs % (Man) Cancelled Monocytes % (Manual) Cancelled Eosinophils % (Manual) Cancelled Basophils % (Manual) Cancelled Metamyelocytes % (Man) Cancelled Myelocytes % (Man) Cancelled Promyelocytes % (Man) Cancelled Blast Cells % (Manual) Cancelled Plasma Cell % (Manual) Cancelled Other Cells % Cancelled Nucleated RBC % Cancelled Neutrophils # (Manual) Cancelled Band Neutrophils # Cancelled Total Absolute Neuts Cancelled Lymphocytes # (Manual) Cancelled Prolymphocyte # Cancelled Reactive Lymphs # Cancelled Total Abs Lymphocytes Cancelled Monocytes # (Manual) Cancelled Eosinophils # (Manual) Cancelled Basophils # (Manual) Cancelled Metamyelocytes # (Man) Cancelled Myelocytes # (Manual) Cancelled Promyelocytes # (Man) Cancelled Blast Cells # (Man) Cancelled Plasma Cell # (Manual) Cancelled Other Cells # Cancelled Nucleated RBCs # (Man) Cancelled Hypersegmented Neuts Cancelled Hyposegmented Neuts Cancelled Hypogranular Neuts Cancelled Large Granular Lymphs Cancelled # Lrg Granular Lymphs Cancelled Hairy Cells Cancelled Smudge Cells Cancelled Toxic Granulation Cancelled Toxic Vacuolation Cancelled Dohle Bodies Cancelled Alyssa Rods Cancelled Hypogranular Platelets Cancelled Clumped Platelets Cancelled Giant Platelets Cancelled Platelet Satelliting Cancelled RBC Morphology Cancelled Polychromasia Cancelled Hypochromasia Cancelled Poikilocytosis Cancelled Basophilic Stippling Cancelled Anisocytosis Cancelled Microcytosis Cancelled Macrocytosis Cancelled Spherocytes Cancelled Pappenheimer Bodies Cancelled Sickle Cells Cancelled Target Cells Cancelled Tear Drop Cells Cancelled Ovalocytes Cancelled Stomatocytes Cancelled [place] Bodies Cancelled Echinocytes Cancelled Acanthocytes (Spur) Cancelled Rouleaux Cancelled RBC Agglutinates Cancelled Schistocytes Cancelled Sezary Cell Cancelled Sodium 135 L Potassium 3.2 L Chloride 103 Carbon Dioxide 25 Anion Gap 7 BUN 8 Creatinine Cancelled 0.48 L Est Cr Clr Drug Dosing Cancelled 122.7 Est GFR ( Amer) Cancelled 122.3 Est GFR (Non-Af Amer) Cancelled 105.6 BUN/Creatinine Ratio 16.7 Glucose 134 H Calcium 8.3 L Magnesium 1.6 L Total Bilirubin AST ALT Alkaline Phosphatase Troponin I High Sens Total Protein Albumin Globulin Albumin/Globulin Ratio Urine Blood Urine RBC (Auto) Blood Parasites ID Cancelled Blood Type Antibody Screen Crossmatch Transfusion React Date Transfusion React Time Tx React Symptoms Reaction Clerical Check Lab Clerical Err Check React Component Return Volume Returned Pre-Trans Blood Type Pre-Trans Vis Hemolysis Pre-Trans [place] Pre-Trans [place] IgG Pre-Trans [place] Poly Pre-Trans [place] C3b, C3d Post-Trans Blood Type Post-Tx Visible Hemolys Post-Trans [place] Post-Trans [place] IgG Post-Trans [place] Poly Post-Trans [place] C3b, C3d Post-Trans Ur Hemoglobin Reaction Path Interpret Transfusion Serv Com Diagnostic Findings ct chest 03/27/22 IMPRESSION: 1. Stable exam from the 01/22/2022 study. 2. Diffuse bilateral centrilobular and julián-fissural micronodules are again noted in conjunction with calcified mediastinal and hilar lymph nodes. Findings are again suspicious for sarcoidosis. 3. Unchanged 6 mm solid nodule of the right upper lobe along with bilateral subcentimeter groundglass nodules measuring up to 7 mm. Chest X-Ray 04/10/22 12:13 XR chest 2V PA/lateral HISTORY: 76 years-old Male Sepsis acute sepsis COMPARISON: Chest CT 03/27/2022 TECHNIQUE: PA and lateral views of the chest FINDINGS: Cardiomediastinal and hilar silhouettes are within normal limits. Prior median sternotomy and CABG. Calcified mediastinal and hilar lymph nodes. Subtle diffuse reticular nodular densities again noted. Degenerative changes of the shoulders and spine. IMPRESSION: Reticulonodular opacities are redemonstrated along with calcified mediastinal and hilar lymph nodes. Findings are again suggestive of an infectious or inflammatory pneumonitis such as pulmonary sarcoidosis. Microbiology 04/12/22 10:29 Blood Aerobic Blood Culture - Preliminary No growth in Aerobic bottle after 24 hours. 04/12/22 10:29 Blood Aerobic Blood Culture - Preliminary No growth in Aerobic bottle after 24 hours. 04/12/22 10:29 Blood Anaerobic Blood Culture - Preliminary No growth in Anaerobic bottle after 24 hours. 04/10/22 13:00 Blood Aerobic Blood Culture - Preliminary No growth in Aerobic bottle after 48 hours. 04/10/22 13:00 Blood Anaerobic Blood Culture - Preliminary No growth in Anaerobic bottle after 48 hours. 04/10/22 12:38 Blood Aerobic Blood Culture - Preliminary No growth in Aerobic bottle after 48 hours. 04/10/22 12:38 Blood Anaerobic Blood Culture - Preliminary Escherichia coli ESBL 04/10/22 17:34 Urine,Clean Catch Urine Culture - Final Escherichia coli ESBL Medications Administered Home Medications Medication Instructions Recorded Confirmed Last Taken ascorbic acid (vitamin C) 500 mg 500 mg PO BID 02/11/19 04/10/22 04/10/22 tablet nitroglycerin 0.4 mg sublingual 0.4 mg sublingual Q5M PRN Chest 02/11/19 04/10/22 Unknown tablet Pain #1 tab cyanocobalamin (vitamin B-12) 1,000 mcg PO QAM 12/12/21 04/10/22 04/10/22 1,000 mcg capsule metoprolol succinate 100 mg 50 mg PO QAM 12/12/21 04/10/22 04/10/22 tablet,extended release 24 hr ondansetron 4 mg disintegrating 4 mg PO Q6H PRN Nausea 12/12/21 04/10/22 Unknown tablet polyethylene glycol 3350 17 gram 17 g PO DAILY PRN Constipation 12/12/21 04/10/22 Unknown oral powder packet acyclovir 400 mg tablet 400 mg PO BID #14 tabs 12/15/21 04/10/22 04/10/22 levofloxacin 500 mg tablet 500 mg PO QAM #7 tabs 12/15/21 04/10/22 04/10/22 voriconazole 200 mg tablet (Vfend) 200 mg PO BID #14 tabs 01/19/22 04/10/22 04/10/22 allopurinol 300 mg tablet 300 mg PO QAM #90 tabs 02/01/22 04/10/22 04/10/22 melatonin 3 mg tablet 6 mg PO HS #60 tabs 02/10/22 04/10/22 04/09/22 sodium chloride 1 gram tablet 1 g PO BID #180 tabs 03/28/22 04/10/22 04/10/22 Active Medications Generic Name Dose Route Start Last Admin Trade Name Freq PRN Reason Stop Dose Admin Acetaminophen 1,000 mg 04/11/22 21:30 04/13/22 08:23 Acetaminophen 500 Mg Tab PO 05/10/22 20:41 1,000 mg Q8H PRN Administration Pain or Fever Acyclovir 400 mg 04/10/22 21:00 04/13/22 08:23 Acyclovir 400 Mg Tab PO 05/10/22 20:59 400 mg BID CHIKI Administration Allopurinol 300 mg 04/11/22 09:00 04/13/22 08:23 Allopurinol 300 Mg Tab PO 05/11/22 08:59 300 mg QAM CHIKI Administration Ascorbic Acid 500 mg 04/10/22 21:00 04/13/22 08:23 Ascorbic Acid 500 Mg Tab PO 05/10/22 20:59 500 mg BID CHIKI Administration Cyanocobalamin 1,000 mcg 04/11/22 09:00 04/13/22 08:24 Cyanocobalamin (B-12) 500 Mcg Tablet PO 05/11/22 08:59 1,000 mcg QAM CHIKI Administration Ertapenem 1,000 mg/ Syringe 10 mls @ 2 mls/min 04/11/22 04:00 04/13/22 04:06 IV 04/25/22 03:59 2 mls/min Q24H CHIKI Administration Vancomycin HCl 1,250 mg/ 275 mls @ 200 mls/hr 04/11/22 18:00 04/13/22 08:17 Sodium Chloride IV 04/13/22 17:59 Infused Q12H CHIKI Infusion Protocol Melatonin 6 mg 04/10/22 21:00 04/12/22 20:13 Melatonin 3 Mg Tab PO 05/10/22 20:59 6 mg HS CHIKI Administration Metoprolol Succinate 50 mg 04/11/22 09:00 04/13/22 08:23 Metoprolol Succ 50mg Ext Rel Tab PO 05/11/22 08:59 50 mg QAM CHIKI Administration Sodium Chloride 1 gm 04/10/22 21:00 04/13/22 08:23 Sodium Chloride 1 Gm Tablet PO 05/10/22 20:59 1 gm BID CHIKI Administration Voriconazole 200 mg 04/10/22 21:00 04/13/22 08:24 Voriconazole 200 Mg Tablet PO 05/10/22 20:59 200 mg BID CHIKI Administration (1) AML (acute myeloblastic leukemia) Leukemia Active/Remission status: without remission Qualified Code(s): C92.00 - Acute myeloblastic leukemia, not having achieved remission
[2022-04-13] MEDS ORDERED: SODIUM CHLORIDE 0.9% 250 ML IV PRN (12:41)
[2022-04-13] MEDS ORDERED: POTASSIUM CHLORIDE CRTAB 20 MEQ TABCR PO STA (13:59)
[2022-04-13] MEDS: MAGNESIUM SULFATE / D5W 1 GM/100 ML BAG IV SCH ×2 (14:20→16:23)
--- NOTE | 2022-04-13 18:43 | Hospitalist Progress Note ---
Date of Service April 13, 2022 Assessment & Plan (1) Acute hypotension: Plan: Presents with sepsis with fever, leukopenia and neutropenia, hypotension. With ESBL E. coli septicemia and UTI as the source Viral respiratory bio fire panel and chest x-ray negative He was having lower abdominal pain with urination prior to admission No port in place Ur cx and BCxs with ESBL E. coli Repeat blood cultures 04/12-NGTD Blood pressures responded to crystalloid fluid which is since been discontinued Continues to spike fevers on 04/13, but suspect secondary to ongoing treatment of pyelonephritis and bacteremia Appreciate infectious disease consultation -continue Invanz but can now discontinue empiric Vanco-plan will be for 2 weeks total of Invanz from the time of first sterile culture-last day of treatment tentatively 04/26/2022 -Continue tylenol prn fevers/pain -Follow repeat blood cultures -follow CBC,BMP, Mag in AM -Plan to repeat blood culture 1 week post completion of IV antibiotics to ensure ongoing stability (2) AML (acute myeloblastic leukemia): Plan: currently on chemo with decitabine, no longer on venetoclax due to low blood counts and previous infection -Appreciate Heme/Onc consult-plan to treat infection and then resume chemo when ANC> 500 however given current performance status, suspect not likely for stem cell tx candidate and would consider pursuing hospice at that point if AML not responding to treatment. BMBx 03/16 with 80% bone marrow involvement. Referral has been made to [facility] for stem cell transplant evaluation -continue prophylactic voriconazole,acyclovir, and will restart home p.o. levofloxacin as Invanz does not cover for Pseudomonas -continue allopurinol (3) Pancytopenia: Plan: Antineoplastic induced pancytopenia as well as secondary to AML -last chemo one week ago hgb down to 7.0--> transfused 1 unit PRBCs on 04/12 Hemoglobin remains low at 7.3 on 04/13-give 1 more unit PRBCs Platelets are improving up to 17 Hopeful for bone marrow recovery over the next few days -had fever during transfusion but do not suspect from transfusion. Transfusion reaction labs all negative As per platelets-oncology recommends keep above 10 in hospital and above 15 if going home soon - no active bleeding at this time Neutropenic precautions -follow CBC (4) Generalized weakness: Plan: Secondary to sepsis and infection PT/OT consults placed (5) Sepsis: Plan: As above (6) Hyponatremia: Plan: Sodium mildly low at 135 Continue salt tablets 1 g p.o. twice daily Follow BMP (7) Hypokalemia: Plan: Potassium low today at 3.2, secondary to poor p.o. intake most likely Replace with oral potassium chloride 40 mEq Replacing IV magnesium 2 g as well for low magnesium Follow BMP magnesium (8) Elevated troponin: Plan: Elevated troponin-peaked at 1500, no CP, no ischemic changes on ECG. This is myocardial demand ischemia in setting of sepsis and mod-severe on last ECHO 01/2022 with underlying CAD/CABG (9) Hypertension: Plan: Continue home metoprolol with hold parameters Blood pressures are improved (10) Aortic stenosis: Plan: Moderate to severe with LVEF 60 to 65% Follow volume status, clinically volume depleted on admission -Follow with cardiology (11) Arteriosclerotic coronary artery disease: Plan: With a history of CABG Discontinued aspirin and started chemotherapy Discontinued statin during recent admission for rhabdomyolysis Continue Toprol-XL (12) Pulmonary nodules: Plan: Previously symptomatic, at risk for opportunistic infections Declined invasive procedures at last pulmonary follow-up, especially given low counts and high risk -Chest CT on 03/27 ordered by pulmonology was stable from previous in 01/2022- had dense bilateral centrilobular and perifissural micronodules in conjunction with calcified mediastinal and hilar lymph nodes suspicious for sarcoidosis Plan DVT prophylaxis-no chemical or mechanical due to risk of bleeding and bruising Disposition-continued stay on medical unit with telemetry. Will need home IV antibiotics Admission and Anticipated Discharge Date Admission Date: April 10, 2022 Subjective Had another fever this AM. Received PRBC transfusion today and did ok. Starting to have chills again in the evening when I saw him. Is eating and drinking, making urine. Telemetry with normal sinus rhythm with rates in the 70s to 100 Review of Systems Review of Systems: All systems reviewed & are unremarkable except as noted in HPI & below Physical Exam Constitutional: WD/WN, vitals as above Eyes: + anicteric sclerae Neck: trachea midline, no thyromegaly Respiratory: normal respiratory effort, lungs clear to auscultation Cardiovascular: Rate/Rhythm: regular rate and regular rhythm Heart Sounds: + murmur (2/6 JENNIFER at [facility]) Chest (Breasts): Chest: normal inspection of chest Gastrointestinal (Abdomen): normal bowel sounds, soft, nontender, no hepatosplenomegaly Musculoskeletal: Extremities: extremities normal to inspection; no cyanosis and no clubbing Skin: no rashes, warm and dry Neurologic: moves all extremities and awake; no focal motor deficits Psychiatric: A+Ox3, euthymic affect Lymphatic: no lymphedema Results & Data Results & Data ([facility]) Vital Signs (Past 12 Hours) Vital Signs Temp Pulse Pulse Resp BP BP Pulse Ox 04/13/22 18:38 36.6 C 86 18 140/82 98 04/13/22 17:57 36.8 C 77 18 146/72 H 99 04/13/22 16:57 36.8 C 74 18 121/64 94 04/13/22 15:57 36.7 C 68 18 116/67 99 04/13/22 15:58 36.7 C 68 18 116/67 99 04/13/22 15:27 36.6 C 72 18 105/61 96 04/13/22 15:12 36.4 C L 72 18 100/56 L 97 04/13/22 14:53 36.4 C L 74 16 101/53 L 97 04/13/22 14:46 75 04/13/22 12:14 36.3 C L 82 16 100/62 95 04/13/22 10:01 37.5 C 04/13/22 08:22 38.8 C H 111 H 18 136/73 93 04/13/22 07:14 82 O2 Del Method 04/13/22 18:38 04/13/22 17:57 04/13/22 16:57 04/13/22 15:57 04/13/22 15:58 Room Air 04/13/22 15:27 04/13/22 15:12 04/13/22 14:53 04/13/22 14:46 04/13/22 12:14 Room Air 04/13/22 10:01 04/13/22 08:22 Room Air 04/13/22 07:14 Laboratory Results 04/13/22 04/13/22 04/13/22 Range/Units 09:58 09:58 09:58 WBC 0.30 L* (4.8-10.8) K/ul RBC 2.44 L (4.63-6.08) M/uL Hgb 7.3 L (14.0-18.0) g/dl Hct 21.2 L (40.1-51.0) % MCV 86.9 (80.0-100.0) fL MCH 29.9 (25.0-34.0) pg MCHC 34.4 (32.0-36.0) g/dL RDW Std Deviation 46.5 H (36.4-46.3) fL RDW Coeff of Marty 15.1 H (11.5-14.5) % Plt Count 17 L* (130-400) K/uL MPV 13.9 H (9.4-12.4) fL Immature Gran % (Auto) Cancelled Neut % (Auto) Cancelled Lymph % (Auto) Cancelled [place] % (Auto) Cancelled Eos % (Auto) Cancelled Baso % (Auto) Cancelled Neut # (Auto) Cancelled Lymph # (Auto) Cancelled [place] # (Auto) Cancelled Eos # (Auto) Cancelled Baso # (Auto) Cancelled Immature Gran # (Auto) Cancelled Neutrophils % (Manual) Cancelled Band Neutrophils % Cancelled Lymphocytes % (Manual) Cancelled Prolymphocyte % Cancelled Reactive Lymphs % (Man) Cancelled Monocytes % (Manual) Cancelled Eosinophils % (Manual) Cancelled Basophils % (Manual) Cancelled Metamyelocytes % (Man) Cancelled Myelocytes % (Man) Cancelled Promyelocytes % (Man) Cancelled Blast Cells % (Manual) Cancelled Plasma Cell % (Manual) Cancelled Other Cells % Cancelled Nucleated RBC % Cancelled Neutrophils # (Manual) Cancelled Band Neutrophils # Cancelled Total Absolute Neuts Cancelled Lymphocytes # (Manual) Cancelled Prolymphocyte # Cancelled Reactive Lymphs # Cancelled Total Abs Lymphocytes Cancelled Monocytes # (Manual) Cancelled Eosinophils # (Manual) Cancelled Basophils # (Manual) Cancelled Metamyelocytes # (Man) Cancelled Myelocytes # (Manual) Cancelled Promyelocytes # (Man) Cancelled Blast Cells # (Man) Cancelled Plasma Cell # (Manual) Cancelled Other Cells # Cancelled Nucleated RBCs # (Man) Cancelled Hypersegmented Neuts Cancelled Hyposegmented Neuts Cancelled Hypogranular Neuts Cancelled Large Granular Lymphs Cancelled # Lrg Granular Lymphs Cancelled Hairy Cells Cancelled Smudge Cells Cancelled Toxic Granulation Cancelled Toxic Vacuolation Cancelled Dohle Bodies Cancelled Alyssa Rods Cancelled Hypogranular Platelets Cancelled Clumped Platelets Cancelled Giant Platelets Cancelled Platelet Satelliting Cancelled RBC Morphology Cancelled Polychromasia Cancelled Hypochromasia Cancelled Poikilocytosis Cancelled Basophilic Stippling Cancelled Anisocytosis Cancelled Microcytosis Cancelled Macrocytosis Cancelled Spherocytes Cancelled Pappenheimer Bodies Cancelled Sickle Cells Cancelled Target Cells Cancelled Tear Drop Cells Cancelled Ovalocytes Cancelled Stomatocytes Cancelled [place] Bodies Cancelled Echinocytes Cancelled Acanthocytes (Spur) Cancelled Rouleaux Cancelled RBC Agglutinates Cancelled Schistocytes Cancelled Sezary Cell Cancelled Sodium 135 L (136-145) mmol/L Potassium 3.2 L (3.5-5.1) mmol/L Chloride 103 (98-107) mmol/L Carbon Dioxide 25 (21-32) mmol/L Anion Gap 7 (3-11) BUN 8 (6-23) mg/dl Creatinine 0.48 L Cancelled Est Cr Clr Drug Dosing 122.7 Cancelled Est GFR ( Amer) 122.3 Cancelled Est GFR (Non-Af Amer) 105.6 Cancelled BUN/Creatinine Ratio 16.7 (10-20) Glucose 134 H (70-99(Fasting)) mg/dl Calcium 8.3 L (8.5-10.1) mg/dl Magnesium 1.6 L (1.7-2.4) mg/dl Blood Parasites ID Cancelled Blood Type Antibody Screen Crossmatch Transfusion React Date Transfusion React Time Tx React Symptoms Reaction Clerical Check Lab Clerical Err Check React Component Return Volume Returned Pre-Trans Blood Type Pre-Trans Vis Hemolysis Pre-Trans [facility] (Negative) Pre-Trans [place] IgG (Negative) Pre-Trans [place] Poly (Negative) Pre-Trans [place] C3b, C3d (Negative) Post-Trans Blood Type Post-Tx Visible Hemolys Post-Trans [place] (Negatuve) Post-Trans [place] IgG (Negative) Post-Trans [place] Poly (Negative) Post-Trans [place] C3b, C3d (Negative) Post-Trans Ur Hemoglobin Reaction Path Interpret Transfusion Serv Com 04/12/22 04/10/22 Range/Units 13:12 16:13 WBC (4.8-10.8) K/ul RBC (4.63-6.08) M/uL Hgb (14.0-18.0) g/dl Hct (40.1-51.0) % MCV (80.0-100.0) fL MCH (25.0-34.0) pg MCHC (32.0-36.0) g/dL RDW Std Deviation (36.4-46.3) fL RDW Coeff of Marty (11.5-14.5) % Plt Count (130-400) K/uL MPV (9.4-12.4) fL Immature Gran % (Auto) Neut % (Auto) Lymph % (Auto) [place] % (Auto) Eos % (Auto) Baso % (Auto) Neut # (Auto) Lymph # (Auto) [place] # (Auto) Eos # (Auto) Baso # (Auto) Immature Gran # (Auto) Neutrophils % (Manual) Band Neutrophils % Lymphocytes % (Manual) Prolymphocyte % Reactive Lymphs % (Man) Monocytes % (Manual) Eosinophils % (Manual) Basophils % (Manual) Metamyelocytes % (Man) Myelocytes % (Man) Promyelocytes % (Man) Blast Cells % (Manual) Plasma Cell % (Manual) Other Cells % Nucleated RBC % Neutrophils # (Manual) Band Neutrophils # Total Absolute Neuts Lymphocytes # (Manual) Prolymphocyte # Reactive Lymphs # Total Abs Lymphocytes Monocytes # (Manual) Eosinophils # (Manual) Basophils # (Manual) Metamyelocytes # (Man) Myelocytes # (Manual) Promyelocytes # (Man) Blast Cells # (Man) Plasma Cell # (Manual) Other Cells # Nucleated RBCs # (Man) Hypersegmented Neuts Hyposegmented Neuts Hypogranular Neuts Large Granular Lymphs # Lrg Granular Lymphs Hairy Cells Smudge Cells Toxic Granulation Toxic Vacuolation Dohle Bodies Alyssa Rods Hypogranular Platelets Clumped Platelets Giant Platelets Platelet Satelliting RBC Morphology Polychromasia Hypochromasia Poikilocytosis Basophilic Stippling Anisocytosis Microcytosis Macrocytosis Spherocytes Pappenheimer Bodies Sickle Cells Target Cells Tear Drop Cells Ovalocytes Stomatocytes [place] Bodies Echinocytes Acanthocytes (Spur) Rouleaux RBC Agglutinates Schistocytes Sezary Cell Sodium (136-145) mmol/L Potassium (3.5-5.1) mmol/L Chloride (98-107) mmol/L Carbon Dioxide (21-32) mmol/L Anion Gap (3-11) BUN (6-23) mg/dl Creatinine Est Cr Clr Drug Dosing Est GFR ( Amer) Est GFR (Non-Af Amer) BUN/Creatinine Ratio (10-20) Glucose (70-99(Fasting)) mg/dl Calcium (8.5-10.1) mg/dl Magnesium (1.7-2.4) mg/dl Blood Parasites ID Blood Type A Positive Antibody Screen NEGATIVE Crossmatch See Detail Transfusion React Date 04-12-2022 Transfusion React Time 1230 Tx React Symptoms FEVER Reaction Clerical Check None Found Lab Clerical Err Check None Found React Component Return PCLRIRR Volume Returned 150 ML Pre-Trans Blood Type A POSITIVE Pre-Trans Vis Hemolysis No Pre-Trans [place] Negative (Negative) Pre-Trans [place] IgG Neg (Negative) Pre-Trans [place] Poly Neg (Negative) Pre-Trans [place] C3b, C3d Neg (Negative) Post-Trans Blood Type A POSITIVE Post-Tx Visible Hemolys No Post-Trans [place] Negative (Negatuve) Post-Trans [place] IgG Neg (Negative) Post-Trans [place] Poly Neg (Negative) Post-Trans [place] C3b, C3d Neg (Negative) Post-Trans Ur Hemoglobin Reaction Path Interpret Transfusion Serv Com PG Care Time/CCT Total # of Minutes Spent Total Time Spent with Patient: Total time spent is greater than 50% in coordination of care (as documented) at patient's floor/unit and/or counseling patient: Coding Level of Care Code 10619 Subseq Hosp Care Lvl 3 Diagnoses Acute hypotension I95.9 AML (acute myeloblastic leukemia) C92.00 Leukemia Active/Remission status: without remission Pancytopenia D61.818 Generalized weakness R53.1 Sepsis A41.9 Hyponatremia E87.1 Hypokalemia E87.6 Elevated troponin R77.8 Hypertension I10 Aortic stenosis I35.0 Arteriosclerotic coronary artery disease I25.10 Pulmonary nodules R91.8 (1) AML (acute myeloblastic leukemia) Leukemia Active/Remission status: without remission Qualified Code(s): C92.00 - Acute myeloblastic leukemia, not having achieved remission
[2022-04-13] MEDS: MELATONIN 3 MG TAB PO SCH (21:25)
[2022-04-14] MEDS: ERTAPENEM SODIUM 1,000 MG in SYRINGE 0 ML IV SCH (04:00)
[2022-04-14 07:15] LABS: Hematocrit (blood only) 25.4 % (40.1-51.0); Hemoglobin 8.7 g/dl (14.0-18.0); Mean Corpuscular Hemoglobin 29.7 pg (25.0-34.0); Mean Corpuscular Hgb Conc 34.3 g/dL (32.0-36.0); Mean Corpuscular Volume 86.7 fL (80.0-100.0); Mean Platelet Volume 8.6 fL (9.4-12.4); Platelet Count 9 K/uL (130-400); RDW Coefficient of Variation 15.1 % (11.5-14.5); RDW Standard Deviation 46.6 fL (36.4-46.3); Red Blood Count 2.93 M/uL (4.63-6.08)
[2022-04-14 07:22] LABS: BUN Creatinine Ratio 22.9 (10-20); Calcium 7.9 mg/dl (8.5-10.1); Creatinine Clr Calc Pharmacy 122.7 ml/min; Est GFR (African American) 122.3 ml/min; Est GFR (Non-African American) 105.6 ml/min; Magnesium 2.1 mg/dl (1.7-2.4); Potassium 3.7 mmol/L (3.5-5.1)
[2022-04-14] MEDS: ACETAMINOPHEN 500 MG TAB PO PRN ×2 (07:31→19:22)
[2022-04-14 07:42] LABS: ALC (manual) 0.41 K/uL (1.2-3.4); ANC (manual) 0.02 K/uL (1.4-6.5); Acanthocytes 1+; Basophils # (manual) 0.01 K/uL (0-0.2); Basophils % (manual) 2 %; Blast # (manual) 0.06 K/uL (0-0); Blast Cells % (manual) 11 %; Lymphocytes # (manual) 0.41 K/uL (1.2-3.4); Lymphocytes % (manual) 82 %; Monocytes # (manual) 0.01 K/uL (0.24-0.82); Monocytes % (manual) 2 %; Neutrophils # (manual) 0.02 K/uL (1.4-6.5); Neutrophils % (manual) 4 %; Polychromasia 1+
[2022-04-14] MEDS: allopurinoL 300 MG TAB PO SCH (08:51)
[2022-04-14] MEDS: CYANOCOBALAMIN (B-12) 500 MCG TABLET PO SCH (08:51)
[2022-04-14] MEDS: METOPROLOL SUCC 50MG EXT REL TAB PO SCH (08:51)
[2022-04-14] MEDS: SODIUM CHLORIDE 1 GM TABLET PO SCH ×2 (08:51→20:20)
[2022-04-14] MEDS: ASCORBIC ACID 500 MG TAB PO SCH ×2 (08:51→20:21)
[2022-04-14] MEDS: ACYCLOVIR 400 MG TAB PO SCH ×2 (08:51→20:21)
[2022-04-14] MEDS: VORICONAZOLE 200 MG TABLET PO SCH ×2 (08:51→20:20)
[2022-04-14] MEDS ORDERED: levoFLOXacin 500 MG TAB PO SCH (09:00)
--- NOTE | 2022-04-14 10:43 | Infectious Disease Progress Nt ---
Date of Service April 14, 2022 Assessment & Plan (1) Sepsis: (2) Fever and neutropenia: (3) AML (acute myeloblastic leukemia): (4) Pancytopenia: Plan This is a 76 year old man with a past medical history if AML diagnosed in 11/2021 sp 3 cycles of decitabine ( last received 03/27/22-03/31/22, with residual disease on recent bone marrow biopsy( 80% aml on bm) , recently started on venotoclax due to poor performance, on acyclovir, voriconazole and levofloxacin prophylaxis,, CAD s/p CABG, sp multiple recent hospitalization since 11/2021 for pancytopenia, then CONS bacteremia with sacral wound, and more recently syncope,Aortic Stenosis, recent neck mass, chronic pulmonary nodules who presents with increased frequency of fevers. He reports daily fevers and night sweats since diagnosis of AML in 11/2021. His fevers usually break with Tylenol but did not prior to admission. His fevers were as high as 101 at home with shaking chills. He denies cough, rash, nausea, vomiting, abdominal pain, change in bowel habits, headaches, chest pain, bleeding. His neck mass and sacral wound resolved. He admits to increased urinary frequency without dysuria priort to admission that has resolved. He has some minor skin abrasions but no open wounds. On admission, he was afebrile but has had fevers since with a t max of 39.4. HR 130, Bp 85/39, O2 sat 96% on Ra. Labs noted for a wbc o 0.3, H/H 7.7/22.7. platelets of 9, cr of 0.73 anc 0.03. Respiratory pcr panel is negative. BC noted for bottles positive for ESBL ecoli and UC noted for > 100,000 cfu of ESBL ecoli . CXr noted for redemonstration of reticulonodular opacities along with calcified mediastinal and hilar lymph nodes. He received iVf resuscitation with improvement in Bp to 113 and improvement in HR. He is currently on IV vancomycin and ertapenem. He remains on prophylaxis of voriconazole and acyclovir. Levaquin was held. ID consulted for ESBL ecoli bacteremia and UTI and need to switch to Meropenem On my initial interview on 04/13, he reported feeling well. He felt that the pattern of his fevers was back to his baseline and i responsive to Tylenol. He no longer complains of urinary frequency. Micro: BC 04/10 04/19 bottles Esbl ecoli BC 04/12 NGTD UC 04/10 > 100,000 CFU ESBL ecoli ESBL E col RX M.I.C. --- --------- Amox/Clav S <=8/ Ampicillin R >16 Amp/Sul S <=8/4 Cefazolin R >16 Cefepime R >16 Cefotaxime R >16 Ceftriaxone R >2 Ciprofloxacin R >2 Ertapenem S <=0.5 Gentamicin S <=4 Levofloxacin R >4 Meropenem S <=1 Tobramycin S <=4 Trimeth/Sulfa S <=/38 Pip/Tazo S <=16 S = SENSITIVE I = INTERMEDIATE R = RESISTANT ABX ertapenem 04/10-ongoing vancomycin 04/10- 04/14 voriconazole home med acyclovir home med levaquin ( home med, restarted 04/14 1.ESBL ecoli sepsis possibly 2/2 urinary source -BC in 04/19 bottles and UC + Esbl ecoli on 04/10 -BC sterile to date on 04/12 - increased urinary frequency prior to admission, no cva ttp - no kapoor, no port. -new abdominal pain 04/14-pending CTAB 2.AML, on chemotherapy - reports night sweats , fevers since November 2021 -last cycle of chemo 03/27-03/31. -80% bone marrow involvement on recent bone marrow on fair amount of residual disease with large clusters of blasts throughout the core 3.Neutropenic fever 4. Profound neutropenia and Pancytopenia 2/2 AML and chemotherapy 5. Pulmonary nodules- chronic, unchanged since 11/16/21 6. Neck mass- resolved - no palpable mass on exam. Pt completed a course of Augmentin outpatient per his pcp 7. Sacral wound - resolved 8. History of CONS (oxacillin sensitive) bacteremia s/p treatment - no port, no hardware - completed 2 weeks Ancef in 02/04 9. New abdominal pain on 04/14 Discussion: The possible source of the 04/19 Esbl ecoli bacteremia may be a UTI as he has the same strain of ESBL ecoli in the urine. He reported increased urinary urgency and frequency prior to admission. His sacral wound has healed and he no longer has a neck mass. He has no kapoor, hardware, picc line or port in place. He admits to chronic fever and night sweats since 11/2021 ( AML diagnosis). The pattern of his fevers changed a few days prior to admission which likely reflected underlying infection. He reports that the fever and sweating pattern has returned closer to its baseline since initiation of antibiotics. His Bc remain sterile since 04/12 ( not yet finalized). He is currently on Ertapenem which is appropriate coverage for the ESBL ecoli infection. He has pulmonary nodules on imaging that are unchanged. Fever source may be multifactorial--- AML and infection 04/14 has new RLQ and LL back/flank buttock pain today. No open wounds. denies N/v or change in bowel habits. Fevers persists but trending down and less frequent. He is pending CTAB with contrast to further evaluate and rule out an abdominal source for his bacteremia. Recommendation Check CtAB with contrast given new abdominal findings on todays exam and follow up results Continue Ertapenem for now Anticipate 2 weeks of ertapenem 1 g iv daily for 2 weeks from sterile BC ( 04/12 so far) for ESBL ecoli septicemia if no continued bacteremia and no new source of infection--with repeat BC 1 week post completion. Continue voriconazole, levaquin and acyclovir prophylaxis Follow up 04/12 BC to ensure it remains sterile Continue Neutropenic precautions Although no change in pulmonary nodules on imaging ( cxr), would closely monitor outpatient with CT imaging (last Ct chest 03/27 reviewed) . Discussed above recommendations with Dr Patel Thank you for allowing me to participate in the care of your patient. Infectious Disease will continue to follow with you. If any questions over the holiday weekend, please call [facility] . Dr. Ivelisse Velásquez will cover for ID consults starting 04/17/22 Adrian Springer MD, MPH Infectious Disease [facility] ADDENDUM 132pm, CtAB results are back and shows findings concerning for ACUTE DIVERTICULITIS. I discussed the new CT results with Dr Patel. Ertapenem should cover ESBL ecoli in blood and abdominal pathogens but would broaden coverage to Meropenem 1g IV q 8hours pending repeat BC as he remains febrile. IF ONLY ESBL ECOLI then can change back to Ertapenem. Can hold Levaquin ppx as Meropenem covers Pseudomonas. Check Blood culture toda y. Obtain surgical evaluation given new abd findings. Final recs will depend on clinical progress and repeat BC results If declines, Add IV Daptomycin 6 mg/kg Iv daily ( check cpk) which would cover Vanco resistant Enterococcus and Micafungin 100 mg Iv daily for fungal coverage given profound neutropenia. CTAB 04/14 FINDINGS: Lower chest: Bilateral pleural effusions are seen with associated atelectasis. Liver: Unremarkable. No focal lesions are seen. Gallbladder and biliary tree: The gallbladder is contracted. No intra- or extrahepatic biliary ductal dilation. Pancreas: Unremarkable, no focal lesions. Spleen: Splenule is incidentally noted. Adrenals: Unremarkable. Kidneys and ureters: Renal cysts are seen. Bladder: Unremarkable. Reproductive organs: Unremarkable. Bowel: There is scattered diverticula and prominent fat stranding about the sigmoid colon. The appendix is normal. Lymph nodes Retroperitoneal: Prominent lymph nodes are seen measuring up to 11 mm in diameter. Pelvic: Unremarkable. Mesenteric: Subcentimeter lymph nodes are noted. These are most prominent in the left lower quadrant. Peritoneum: Normal. Vessels: Atherosclerotic calcifications are seen. There is a saccular infrarenal aortic aneurysm measuring 32 mm, unchanged from prior exam. Abdominal wall: A fat-containing umbilical hernia is seen. Bones: Degenerative changes in the visualized spine. IMPRESSION: 1. Findings are compatible with acute diverticulitis. No evidence of abscess or perforation is seen. 2. Retroperitoneal lymph nodes are enlarged, overall similar to prior exam. 3. Infrarenal aortic aneurysm, stable. Admission and Anticipated Discharge Date Admission Date: April 10, 2022 Subjective Subsequent visit was provided via telemedicine using two-way real-time interactive telecommunication between the patient and the telemedicine provider. For the duration of the visit, the provider was performing the assessment from a different facility than the patient. This includesuse of bluetooth stethoscope forauscultationperformed by the telepresenter that the telemedicine provider can hear if described in the physical exam. [employer] Team Member contact information: Please call [facility] . (Phone Number For Physician Use Only) After establishing a telemedicine visit, patient was: Patient/authorized rep acknowledged consent and understanding and Gave permission to continue telehealth session Subsequent Time Spent w Inpatient: 25 minutes Febrile during my exam. T max 38.3. Fever curve trending down overall. Has LL back/flank pain and RLQ ab pain this am. This is new compared to yesterday's exam. Review of System new abdominal and low back pain today Physical Exam Physical Exam: Constitutional: NAD, pleasant and conversant. flushed appearing Eyes: Anicteric sclera, PERRl, EOMI ENMT: Moist mucous membranes Neck: Supple, No mass noted Respiratory: Clear throughout Cardiovascular: S1 S2 [place], RRR Gastrointestinal (Abdomen): soft, New RLQ TTP Musculoskeletal: Moves all extremities, BL hand with trace edema, No LE edema New L lower back /flank ttp Skin: skin abrasions and hand skin tears, LLE incision at Prior cath site, well healed No open wounds. Sacral wound healed- not open or tender to touch Neurologic: Awake , alert oriented times 4 Psychiatric: Appropriate, cooperative Genitourinary:No cva tenderness, NO kapoor, no inguinal adenopathy Results & Data ([facility]) Vital Signs (Past 12 Hours) Vital Signs Temp Pulse Resp BP BP Pulse Ox O2 Del Method 04/14/22 09:43 38.3 C H 100 H 18 111/61 94 Room Air 04/14/22 07:21 36.7 C 81 16 135/74 96 Room Air 04/14/22 03:31 36.4 C L 73 18 106/61 96 Room Air 04/13/22 23:18 37 C 87 16 110/59 L 97 Room Air Laboratory Results Laboratory Results - last 48 hr 04/10/22 04/12/22 04/12/22 16:13 13:12 14:06 WBC RBC Hgb Hct MCV MCH MCHC RDW Std Deviation RDW Coeff of Marty Plt Count MPV Immature Gran % (Auto) Neut % (Auto) Lymph % (Auto) [place] % (Auto) Eos % (Auto) Baso % (Auto) Neut # (Auto) Lymph # (Auto) [place] # (Auto) Eos # (Auto) Baso # (Auto) Immature Gran # (Auto) Neutrophils % (Manual) Band Neutrophils % Lymphocytes % (Manual) Prolymphocyte % Reactive Lymphs % (Man) Monocytes % (Manual) Eosinophils % (Manual) Basophils % (Manual) Metamyelocytes % (Man) Myelocytes % (Man) Promyelocytes % (Man) Blast Cells % (Manual) Plasma Cell % (Manual) Other Cells % Nucleated RBC % Neutrophils # (Manual) Band Neutrophils # Total Absolute Neuts Lymphocytes # (Manual) Prolymphocyte # Reactive Lymphs # Total Abs Lymphocytes Monocytes # (Manual) Eosinophils # (Manual) Basophils # (Manual) Metamyelocytes # (Man) Myelocytes # (Manual) Promyelocytes # (Man) Blast Cells # (Man) Plasma Cell # (Manual) Other Cells # Nucleated RBCs # (Man) Hypersegmented Neuts Hyposegmented Neuts Hypogranular Neuts Large Granular Lymphs # Lrg Granular Lymphs Hairy Cells Smudge Cells Toxic Granulation Toxic Vacuolation Dohle Bodies Alyssa Rods Hypogranular Platelets Clumped Platelets Giant Platelets Platelet Satelliting RBC Morphology Polychromasia Hypochromasia Poikilocytosis Basophilic Stippling Anisocytosis Microcytosis Macrocytosis Spherocytes Pappenheimer Bodies Sickle Cells Target Cells Tear Drop Cells Ovalocytes Stomatocytes Manzano-Cleary Bodies Echinocytes Acanthocytes (Spur) Rouleaux RBC Agglutinates Schistocytes Sezary Cell Sodium Potassium Chloride Carbon Dioxide Anion Gap BUN Creatinine Est Cr Clr Drug Dosing Est GFR ( Amer) Est GFR (Non-Af Amer) BUN/Creatinine Ratio Glucose Calcium Magnesium Urine Blood Negative Urine RBC (Auto) 0-4 Blood Parasites ID Blood Type A Positive Antibody Screen NEGATIVE Crossmatch See Detail Transfusion React Date 04-12-2022 Transfusion React Time 1230 Tx React Symptoms FEVER Reaction Clerical Check None Found Lab Clerical Err Check None Found React Component Return PCLRIRR Volume Returned 150 ML Pre-Trans Blood Type A POSITIVE Pre-Trans Vis Hemolysis No Pre-Trans [place] Negative Pre-Trans [place] IgG Neg Pre-Trans [place] Poly Neg Pre-Trans [place] C3b, C3d Neg Post-Trans Blood Type A POSITIVE Post-Tx Visible Hemolys No Post-Trans [place] Negative Post-Trans [place] IgG Neg Post-Trans [place] Poly Neg Post-Trans [place] C3b, C3d Neg Post-Trans Ur Hemoglobin Reaction Path Interpret Transfusion Serv Com 04/13/22 04/13/22 04/13/22 09:58 09:58 09:58 WBC 0.30 L* RBC 2.44 L Hgb 7.3 L Hct 21.2 L MCV 86.9 MCH 29.9 MCHC 34.4 RDW Std Deviation 46.5 H RDW Coeff of Marty 15.1 H Plt Count 17 L* MPV 13.9 H Immature Gran % (Auto) Cancelled Neut % (Auto) Cancelled Lymph % (Auto) Cancelled [place] % (Auto) Cancelled Eos % (Auto) Cancelled Baso % (Auto) Cancelled Neut # (Auto) Cancelled Lymph # (Auto) Cancelled [place] # (Auto) Cancelled Eos # (Auto) Cancelled Baso # (Auto) Cancelled Immature Gran # (Auto) Cancelled Neutrophils % (Manual) Cancelled Band Neutrophils % Cancelled Lymphocytes % (Manual) Cancelled Prolymphocyte % Cancelled Reactive Lymphs % (Man) Cancelled Monocytes % (Manual) Cancelled Eosinophils % (Manual) Cancelled Basophils % (Manual) Cancelled Metamyelocytes % (Man) Cancelled Myelocytes % (Man) Cancelled Promyelocytes % (Man) Cancelled Blast Cells % (Manual) Cancelled Plasma Cell % (Manual) Cancelled Other Cells % Cancelled Nucleated RBC % Cancelled Neutrophils # (Manual) Cancelled Band Neutrophils # Cancelled Total Absolute Neuts Cancelled Lymphocytes # (Manual) Cancelled Prolymphocyte # Cancelled Reactive Lymphs # Cancelled Total Abs Lymphocytes Cancelled Monocytes # (Manual) Cancelled Eosinophils # (Manual) Cancelled Basophils # (Manual) Cancelled Metamyelocytes # (Man) Cancelled Myelocytes # (Manual) Cancelled Promyelocytes # (Man) Cancelled Blast Cells # (Man) Cancelled Plasma Cell # (Manual) Cancelled Other Cells # Cancelled Nucleated RBCs # (Man) Cancelled Hypersegmented Neuts Cancelled Hyposegmented Neuts Cancelled Hypogranular Neuts Cancelled Large Granular Lymphs Cancelled # Lrg Granular Lymphs Cancelled Hairy Cells Cancelled Smudge Cells Cancelled Toxic Granulation Cancelled Toxic Vacuolation Cancelled Dohle Bodies Cancelled Alyssa Rods Cancelled Hypogranular Platelets Cancelled Clumped Platelets Cancelled Giant Platelets Cancelled Platelet Satelliting Cancelled RBC Morphology Cancelled Polychromasia Cancelled Hypochromasia Cancelled Poikilocytosis Cancelled Basophilic Stippling Cancelled Anisocytosis Cancelled Microcytosis Cancelled Macrocytosis Cancelled Spherocytes Cancelled Pappenheimer Bodies Cancelled Sickle Cells Cancelled Target Cells Cancelled Tear Drop Cells Cancelled Ovalocytes Cancelled Stomatocytes Cancelled Manzano-Cleary Bodies Cancelled Echinocytes Cancelled Acanthocytes (Spur) Cancelled Rouleaux Cancelled RBC Agglutinates Cancelled Schistocytes Cancelled Sezary Cell Cancelled Sodium 135 L Potassium 3.2 L Chloride 103 Carbon Dioxide 25 Anion Gap 7 BUN 8 Creatinine Cancelled 0.48 L Est Cr Clr Drug Dosing Cancelled 122.7 Est GFR ( Amer) Cancelled 122.3 Est GFR (Non-Af Amer) Cancelled 105.6 BUN/Creatinine Ratio 16.7 Glucose 134 H Calcium 8.3 L Magnesium 1.6 L Urine Blood Urine RBC (Auto) Blood Parasites ID Cancelled Blood Type Antibody Screen Crossmatch Transfusion React Date Transfusion React Time Tx React Symptoms Reaction Clerical Check Lab Clerical Err Check React Component Return Volume Returned Pre-Trans Blood Type Pre-Trans Vis Hemolysis Pre-Trans [place]O Pre-Trans [place] IgG Pre-Trans [place] Poly Pre-Trans [place] C3b, C3d Post-Trans Blood Type Post-Tx Visible Hemolys Post-Trans [place] Post-Trans [place] IgG Post-Trans [place] Poly Post-Trans [place] C3b, C3d Post-Trans Ur Hemoglobin Reaction Path Interpret Transfusion Serv Com 04/14/22 04/14/22 06:32 06:32 WBC 0.50 L* RBC 2.93 L Hgb 8.7 L Hct 25.4 L MCV 86.7 MCH 29.7 MCHC 34.3 RDW Std Deviation 46.6 H RDW Coeff of Marty 15.1 H Plt Count 9 L* MPV 8.6 L Immature Gran % (Auto) Cancelled Neut % (Auto) Cancelled Lymph % (Auto) Cancelled [place] % (Auto) Cancelled Eos % (Auto) Cancelled Baso % (Auto) Cancelled Neut # (Auto) Cancelled Lymph # (Auto) Cancelled [place] # (Auto) Cancelled Eos # (Auto) Cancelled Baso # (Auto) Cancelled Immature Gran # (Auto) Cancelled Neutrophils % (Manual) 4 Band Neutrophils % Cancelled Lymphocytes % (Manual) 82 Prolymphocyte % Cancelled Reactive Lymphs % (Man) Cancelled Monocytes % (Manual) 2 Eosinophils % (Manual) Cancelled Basophils % (Manual) 2 Metamyelocytes % (Man) Cancelled Myelocytes % (Man) Cancelled Promyelocytes % (Man) Cancelled Blast Cells % (Manual) 11 Plasma Cell % (Manual) Cancelled Other Cells % Cancelled Nucleated RBC % Cancelled Neutrophils # (Manual) 0.02 L Band Neutrophils # Cancelled Total Absolute Neuts 0.02 L* Lymphocytes # (Manual) 0.41 L Prolymphocyte # Cancelled Reactive Lymphs # Cancelled Total Abs Lymphocytes 0.41 L Monocytes # (Manual) 0.01 L Eosinophils # (Manual) Cancelled Basophils # (Manual) 0.01 Metamyelocytes # (Man) Cancelled Myelocytes # (Manual) Cancelled Promyelocytes # (Man) Cancelled Blast Cells # (Man) 0.06 H Plasma Cell # (Manual) Cancelled Other Cells # Cancelled Nucleated RBCs # (Man) Cancelled Hypersegmented Neuts Cancelled Hyposegmented Neuts Cancelled Hypogranular Neuts Cancelled Large Granular Lymphs Cancelled # Lrg Granular Lymphs Cancelled Hairy Cells Cancelled Smudge Cells Cancelled Toxic Granulation Cancelled Toxic Vacuolation Cancelled Dohle Bodies Cancelled Alyssa Rods Cancelled Hypogranular Platelets Cancelled Clumped Platelets Cancelled Giant Platelets Cancelled Platelet Satelliting Cancelled RBC Morphology Cancelled Polychromasia 1+ Hypochromasia Cancelled Poikilocytosis Cancelled Basophilic Stippling Cancelled Anisocytosis Cancelled Microcytosis Cancelled Macrocytosis Cancelled Spherocytes Cancelled Pappenheimer Bodies Cancelled Sickle Cells Cancelled Target Cells Cancelled Tear Drop Cells Cancelled Ovalocytes Cancelled Stomatocytes Cancelled Manzano-Cleary Bodies Cancelled Echinocytes Cancelled Acanthocytes (Spur) 1+ Rouleaux Cancelled RBC Agglutinates Cancelled Schistocytes Cancelled Sezary Cell Cancelled Sodium 139 Potassium 3.7 Chloride 106 Carbon Dioxide 28 Anion Gap 5 BUN 11 Creatinine 0.48 L Est Cr Clr Drug Dosing 122.7 Est GFR ( Amer) 122.3 Est GFR (Non-Af Amer) 105.6 BUN/Creatinine Ratio 22.9 H Glucose 100 H Calcium 7.9 L Magnesium 2.1 Urine Blood Urine RBC (Auto) Blood Parasites ID Cancelled Blood Type Antibody Screen Crossmatch Transfusion React Date Transfusion React Time Tx React Symptoms Reaction Clerical Check Lab Clerical Err Check React Component Return Volume Returned Pre-Trans Blood Type Pre-Trans Vis Hemolysis Pre-Trans [place] Pre-Trans [place] IgG Pre-Trans [place] Poly Pre-Trans [place] C3b, C3d Post-Trans Blood Type Post-Tx Visible Hemolys Post-Trans [place] Post-Trans [place] IgG Post-Trans [place] Poly Post-Trans [place] C3b, C3d Post-Trans Ur Hemoglobin Reaction Path Interpret Transfusion Serv Com Diagnostic Findings ct chest 03/27/22 IMPRESSION: 1. Stable exam from the 01/22/2022 study. 2. Diffuse bilateral centrilobular and julián-fissural micronodules are again noted in conjunction with calcified mediastinal and hilar lymph nodes. Findings are again suspicious for sarcoidosis. 3. Unchanged 6 mm solid nodule of the right upper lobe along with bilateral subcentimeter groundglass nodules measuring up to 7 mm. Chest X-Ray 04/10/22 12:13 XR chest 2V PA/lateral HISTORY: 76 years-old Male Sepsis acute sepsis COMPARISON: Chest CT 03/27/2022 TECHNIQUE: PA and lateral views of the chest FINDINGS: Cardiomediastinal and hilar silhouettes are within normal limits. Prior median sternotomy and CABG. Calcified mediastinal and hilar lymph nodes. Subtle diffuse reticular nodular densities again noted. Degenerative changes of the shoulders and spine. IMPRESSION: Reticulonodular opacities are redemonstrated along with calcified mediastinal and hilar lymph nodes. Findings are again suggestive of an infectious or inflammatory pneumonitis such as pulmonary sarcoidosis. Microbiology 04/12/22 10:29 Blood Aerobic Blood Culture - Preliminary No growth in Aerobic bottle after 48 hours. 04/12/22 10:29 Blood Anaerobic Blood Culture - Final 04/12/22 10:29 Blood Aerobic Blood Culture - Preliminary No growth in Aerobic bottle after 48 hours. 04/12/22 10:29 Blood Anaerobic Blood Culture - Preliminary No growth in Anaerobic bottle after 48 hours. 04/10/22 13:00 Blood Aerobic Blood Culture - Preliminary No growth in Aerobic bottle after 48 hours. 04/10/22 13:00 Blood Anaerobic Blood Culture - Preliminary No growth in Anaerobic bottle after 48 hours. 04/10/22 12:38 Blood Aerobic Blood Culture - Preliminary No growth in Aerobic bottle after 48 hours. 04/10/22 12:38 Blood Anaerobic Blood Culture - Preliminary Escherichia coli ESBL 04/10/22 17:34 Urine,Clean Catch Urine Culture - Final Escherichia coli ESBL (1) AML (acute myeloblastic leukemia) Leukemia Active/Remission status: without remission Qualified Code(s): C92.00 - Acute myeloblastic leukemia, not having achieved remission
[2022-04-14] MEDS ORDERED: OPTIRAY 350 100ml IV ONE (11:57)
--- NOTE | 2022-04-14 12:30 | CT Scan Report ---
CT abd pelvis IV con only CLINICAL HISTORY: abdominal pain,fever,UTI TECHNIQUE: Helical axial images of the abdomen and pelvis were obtained and displayed. Automated dose lowering techniques and/or adjustment according to patient size were utilized for this exam. This e xam was performed with intravenous contrast. CT DOSE: 785.02 mGycm COMPARISON: Comparison is made to CT chest 11/22/2021 FINDINGS: Lower chest: Bilateral pleural effusions are seen with associated atelectasis. Liver: Unremarkable. No focal lesions are seen. Gallbladder and biliary tree: The gallbladder is contracted. No intra- or extrahepatic biliary ductal dilation. Pancreas: Unremarkable, no focal lesions. Spleen: Splenule is incidentally noted. Adrenals: Unremarkable. Kidneys and ureters: Renal cysts are seen. Bladder: Unremarkable. Reproductive organs: Unremarkable. Bowel: There is scattered diverticula and prominent fat stranding about the sigmoid colon. The append ix is normal. Lymph nodes Retroperitoneal: Prominent lymph nodes are seen measuring up to 11 mm in diameter. Pelvic: Unremarkable. Mesenteric: Subcentimeter lymph nodes are noted. These are most prominent in the left lower quadrant. Peritoneum: Normal. Vessels: Atherosclerotic calcifications are seen. There is a saccular infrarenal aortic aneurysm radha uring 32 mm, unchanged from prior exam. Abdominal wall: A fat-containing umbilical hernia is seen. Bones: Degenerative changes in the visualized spine. IMPRESSION: 1. Findings are compatible with acute diverticulitis. No evidence of abscess or perforation is seen. 2. Retroperitoneal lymph nodes are enlarged, overall similar to prior exam. 3. Infrarenal aortic aneurysm, stable. ACT 112: Negative or not required by law. Electronically signed by: Salinas Eduardo M.D. 04/14/2022 12:28 PM
[2022-04-14] MEDS: MEROPENEM 500 MG in SYRINGE 0 ML IV SCH ×2 (14:31→20:19)
[2022-04-14] MEDS: MELATONIN 3 MG TAB PO SCH (20:23)
--- NOTE | 2022-04-14 21:08 | Hospitalist Progress Note ---
Date of Service April 14, 2022 Assessment & Plan (1) Sepsis: Plan: Presents with sepsis with neutropenic fever, hypotension. With ESBL E. coli septicemia and UTI as the source Viral respiratory bio fire panel and chest x-ray negative He was having lower abdominal pain with urination prior to admission No port in place Ur cx and BCxs with ESBL E. coli Repeat blood cultures 04/12-NGTD Blood pressures responded to crystalloid fluid which is since been discontinued Initially was started on ertapenem and vancomycin empirically Vancomycin was discontinued after 48 hours Continues to spike fevers on 04/13, but suspect secondary to ongoing treatment of pyelonephritis and bacteremia Appreciate infectious disease consultation at that time recommendation to remain on ertapenem On 04/14, ongoing high spiking fevers and development of some lower abdominal pain-CT abdomen/pelvis obtained which shows sigmoid diverticulitis but no abscess. With prominent retroperitoneal lymphadenopathy 11 mm similar to previous. It is possible that the fevers could be secondary to the ongoing AML itself, but potentially could be a failure of treatment with ertapenem which would not cover for Pseudomonas. He was off of his levofloxacin for a few days this admission. Perhaps he has a separate intra-abdominal pseudomonal infection with the diverticulitis that is resistant to fluoroquinolones in addition to the ESBL E. coli bacteremia and UTI -Discontinue ertapenem and start meropenem 1000 mg IV every 8 hours as per discussion with infectious disease on 04/14-this will cover for both the ESBL E. coli bacteremia, UTI, as well as a Pseudomonas intra-abdominal infection/diverticulitis as well as give coverage for anaerobes -Hold home levofloxacin -Continue tylenol prn fevers/pain-hopefully fevers will start to improve -Follow repeat blood cultures from 04/12 and will repeat blood cultures again on 04/14 -follow CBC,BMP, Mag in AM -Plan to repeat blood culture 1 week post completion of IV antibiotics to ensure ongoing stability (2) Acute hypotension: Plan: Now resolved, secondary to sepsis (3) Acute diverticulitis: Plan: As above (4) AML (acute myeloblastic leukemia): Plan: currently on chemo with decitabine, no longer on venetoclax due to low blood counts and previous infection -Appreciate Heme/Onc consult-plan to treat infection and then resume chemo when ANC> 500 however given current performance status, suspect not likely for stem cell tx candidate and would consider pursuing hospice at that point if AML not responding to treatment. BMBx 03/16 with 80% bone marrow involvement. Referral has been made to [facility] for stem cell transplant evaluation -continue prophylactic voriconazole,acyclovir, but now holding home levofloxacin while on meropenem -continue allopurinol -Follow CBC in the morning (5) Pancytopenia: Plan: Antineoplastic induced pancytopenia as well as secondary to AML -last chemo one week prior to admission with decitabine hgb down to 7.0--> transfused 1 unit PRBCs on 04/12 Hemoglobin remained low at 7.3 on 04/13-received 1 more unit PRBCs Hemoglobin now increased appropriately and stable at 8.7 Platelets low on admission was given 1 unit of platelets and had improvement up to 17 Platelets are back down again today to 9-transfuse platelets -had fever during first PRBC transfusion but do not suspect from transfusion. Transfusion reaction labs all negative -As per platelets-oncology recommends keep above 10 in hospital and above 15 if going home soon - no active bleeding at this time Neutropenic precautions -follow CBC-Hopeful for bone marrow recovery over the next few days (6) Generalized weakness: Plan: Secondary to sepsis and infection PT/OT consults placed (7) Hyponatremia: Plan: Sodium mildly low at 135 and now improved Continue salt tablets 1 g p.o. twice daily Follow BMP (8) Hypokalemia: Plan: Potassium and magnesium low likely due to ongoing poor p.o. intake and electrolyte losses with fevers and infection Replaced and now resolved Follow BMP magnesium in the morning (9) Elevated troponin: Plan: Elevated troponin-peaked at 1500, no CP, no ischemic changes on ECG. This is myocardial demand ischemia in setting of sepsis and mod-severe on last ECHO 01/2022 with underlying CAD/CABG (10) Hypertension: Plan: Continue home metoprolol with hold parameters Blood pressures are improved (11) Aortic stenosis: Plan: Moderate to severe with LVEF 60 to 65% Follow volume status, clinically volume depleted on admission -Follow with cardiology (12) Arteriosclerotic coronary artery disease: Plan: With a history of CABG Discontinued aspirin when he started chemotherapy due to thrombocytopenia Discontinued statin during recent admission for rhabdomyolysis Continue Toprol-XL (13) Pulmonary nodules: Plan: Previously symptomatic, at risk for opportunistic infections Declined invasive procedures at last pulmonary follow-up, especially given low counts and high risk -Chest CT on 03/27 ordered by pulmonology was stable from previous in 01/2022- had dense bilateral centrilobular and perifissural micronodules in conjunction with calcified mediastinal and hilar lymph nodes suspicious for sarcoidosis Follow-up as an outpatient Plan DVT prophylaxis-no chemical or mechanical due to risk of bleeding and bruising Disposition-continued stay on medical unit with telemetry. Will need home IV antibiotics eventually once medically stable. Prescription signed for meropenem and given to pillowcase cutter. Eventually will need ultrasound-guided IV placed once fevers are resolved and repeat blood cultures remain without growth. Admission and Anticipated Discharge Date Admission Date: April 10, 2022 Subjective Patient was having some lower abdominal pain this morning when seen by infectious disease. The ID physician contacted me and requested a CT of the abdomen/pelvis given abdominal pain and ongoing fevers. CT showed sigmoid diverticulitis. The patient reports he feels much better when the fevers are gone. He had a bowel movement today that was nonbloody. No nausea or vomiting. He is eating. He was out of bed to the chair today. Denies shortness of breath or chest pains, no cough. He does have a small blister between his thumb and index finger on the right hand. Telemetry with normal sinus rhythm with rates in the 90s Review of Systems Review of Systems: All systems reviewed & are unremarkable except as noted in HPI & below Physical Exam Constitutional: WD/WN, vitals as above Eyes: + anicteric sclerae ENMT: external ear and nose normal, oropharynx normal Neck: trachea midline, no thyromegaly Respiratory: normal respiratory effort, lungs clear to auscultation Cardiovascular: Rate/Rhythm: regular rate and regular rhythm Heart Sounds: + murmur (2/6 JENNIFER at RUSB) Chest (Breasts): Chest: normal inspection of chest Gastrointestinal (Abdomen): normal bowel sounds, soft, nontender, no hepatosplenomegaly (Except very minimal tenderness in LLQ without guarding or rebound) Musculoskeletal: Extremities: extremities normal to inspection; no cyanosis and no clubbing Skin: no rashes, warm and dry + lesion (Small linear blister in the webspace between thumb and index finger on righ) No splinter hemorrhages or petechiae in extremities Neurologic: moves all extremities and awake; no focal motor deficits Psychiatric: A+Ox3, euthymic affect Lymphatic: no lymphedema Results & Data Results & Data ([facility]) Vital Signs (Past 12 Hours) Vital Signs Temp Pulse Pulse Resp BP BP Pulse Ox 04/14/22 20:33 38.9 C H 103 H 18 124/69 93 04/14/22 19:51 39.4 C H 105 H 18 136/71 90 04/14/22 19:15 39.4 C H 105 H 18 136/71 90 04/14/22 18:15 38.9 C H 100 H 18 145/74 H 95 04/14/22 17:45 37 C 94 H 16 150/75 H 95 04/14/22 17:15 36.5 C 80 16 132/75 95 04/14/22 16:45 36.8 C 78 18 130/72 95 04/14/22 16:30 36.8 C 76 18 110/67 96 04/14/22 16:16 36.8 C 79 18 117/69 97 04/14/22 15:55 36.7 C 76 18 113/67 96 04/14/22 12:43 36.8 C 85 16 98/61 L 96 04/14/22 11:18 37.1 C 91 H 18 98/49 L 95 04/14/22 11:08 37.5 C 95 H 16 98/56 L 95 04/14/22 09:43 38.3 C H 100 H 18 111/61 94 O2 Del Method 04/14/22 20:33 Room Air 04/14/22 19:51 04/14/22 19:15 04/14/22 18:15 04/14/22 17:45 04/14/22 17:15 04/14/22 16:45 04/14/22 16:30 04/14/22 16:16 04/14/22 15:55 Room Air 04/14/22 12:43 Room Air 04/14/22 11:18 Room Air 04/14/22 11:08 Room Air 04/14/22 09:43 Room Air Laboratory Results 04/14/22 04/14/22 04/10/22 Range/Units 06:32 06:32 16:13 WBC 0.50 L* (4.8-10.8) K/ul RBC 2.93 L (4.63-6.08) M/uL Hgb 8.7 L (14.0-18.0) g/dl Hct 25.4 L (40.1-51.0) % MCV 86.7 (80.0-100.0) fL MCH 29.7 (25.0-34.0) pg MCHC 34.3 (32.0-36.0) g/dL RDW Std Deviation 46.6 H (36.4-46.3) fL RDW Coeff of Marty 15.1 H (11.5-14.5) % Plt Count 9 L* (130-400) K/uL MPV 8.6 L (9.4-12.4) fL Immature Gran % (Auto) Cancelled Neut % (Auto) Cancelled Lymph % (Auto) Cancelled [place] % (Auto) Cancelled Eos % (Auto) Cancelled Baso % (Auto) Cancelled Neut # (Auto) Cancelled Lymph # (Auto) Cancelled [place] # (Auto) Cancelled Eos # (Auto) Cancelled Baso # (Auto) Cancelled Immature Gran # (Auto) Cancelled Neutrophils % (Manual) 4 % Band Neutrophils % Cancelled Lymphocytes % (Manual) 82 % Prolymphocyte % Cancelled Reactive Lymphs % (Man) Cancelled Monocytes % (Manual) 2 % Eosinophils % (Manual) Cancelled Basophils % (Manual) 2 % Metamyelocytes % (Man) Cancelled Myelocytes % (Man) Cancelled Promyelocytes % (Man) Cancelled Blast Cells % (Manual) 11 % Plasma Cell % (Manual) Cancelled Other Cells % Cancelled Nucleated RBC % Cancelled Neutrophils # (Manual) 0.02 L (1.4-6.5) K/uL Band Neutrophils # Cancelled Total Absolute Neuts 0.02 L* (1.4-6.5) K/uL Lymphocytes # (Manual) 0.41 L (1.2-3.4) K/uL Prolymphocyte # Cancelled Reactive Lymphs # Cancelled Total Abs Lymphocytes 0.41 L (1.2-3.4) K/uL Monocytes # (Manual) 0.01 L (0.24-0.82) K/uL Eosinophils # (Manual) Cancelled Basophils # (Manual) 0.01 (0-0.2) K/uL Metamyelocytes # (Man) Cancelled Myelocytes # (Manual) Cancelled Promyelocytes # (Man) Cancelled Blast Cells # (Man) 0.06 H (0-0) K/uL Plasma Cell # (Manual) Cancelled Other Cells # Cancelled Nucleated RBCs # (Man) Cancelled Hypersegmented Neuts Cancelled Hyposegmented Neuts Cancelled Hypogranular Neuts Cancelled Large Granular Lymphs Cancelled # Lrg Granular Lymphs Cancelled Hairy Cells Cancelled Smudge Cells Cancelled Toxic Granulation Cancelled Toxic Vacuolation Cancelled Dohle Bodies Cancelled Alyssa Rods Cancelled Hypogranular Platelets Cancelled Clumped Platelets Cancelled Giant Platelets Cancelled Platelet Satelliting Cancelled RBC Morphology Cancelled Polychromasia 1+ Hypochromasia Cancelled Poikilocytosis Cancelled Basophilic Stippling Cancelled Anisocytosis Cancelled Microcytosis Cancelled Macrocytosis Cancelled Spherocytes Cancelled Pappenheimer Bodies Cancelled Sickle Cells Cancelled Target Cells Cancelled Tear Drop Cells Cancelled Ovalocytes Cancelled Stomatocytes Cancelled Manzano-Grawn Bodies Cancelled Echinocytes Cancelled Acanthocytes (Spur) 1+ Rouleaux Cancelled RBC Agglutinates Cancelled Schistocytes Cancelled Sezary Cell Cancelled Sodium 139 (136-145) mmol/L Potassium 3.7 (3.5-5.1) mmol/L Chloride 106 (98-107) mmol/L Carbon Dioxide 28 (21-32) mmol/L Anion Gap 5 (3-11) BUN 11 (6-23) mg/dl Creatinine 0.48 L (0.6-1.4) mg/dl Est Cr Clr Drug Dosing 122.7 ml/min Est GFR ( Amer) 122.3 ml/min Est GFR (Non-Af Amer) 105.6 ml/min BUN/Creatinine Ratio 22.9 H (10-20) Glucose 100 H (70-99(Fasting)) mg/dl Calcium 7.9 L (8.5-10.1) mg/dl Magnesium 2.1 (1.7-2.4) mg/dl Blood Parasites ID Cancelled Crossmatch See Detail PG Care Time/CCT Total # of Minutes Spent Total Time Spent with Patient: Total time spent is greater than 50% in coordination of care (as documented) at patient's floor/unit and/or counseling patient: Coding Level of Care Code 93632 Subseq Hosp Care Lvl 3 Diagnoses Sepsis A41.9 Acute hypotension I95.9 Acute diverticulitis K57.92 AML (acute myeloblastic leukemia) C92.00 Leukemia Active/Remission status: without remission Pancytopenia D61.818 Generalized weakness R53.1 Hyponatremia E87.1 Hypokalemia E87.6 Elevated troponin R77.8 Hypertension I10 Aortic stenosis I35.0 Arteriosclerotic coronary artery disease I25.10 Pulmonary nodules R91.8 (1) AML (acute myeloblastic leukemia) Leukemia Active/Remission status: without remission Qualified Code(s): C92.00 - Acute myeloblastic leukemia, not having achieved remission
[2022-04-15] MEDS: MEROPENEM 500 MG in SYRINGE 0 ML IV SCH ×4 (01:45→21:02)
[2022-04-15 07:35] LABS: Hematocrit (blood only) 29.7 % (40.1-51.0); Hemoglobin 10.1 g/dl (14.0-18.0); Mean Corpuscular Hemoglobin 30.1 pg (25.0-34.0); Mean Corpuscular Volume 88.7 fL (80.0-100.0); Mean Platelet Volume 8.7 fL (9.4-12.4); Nucleated RBC # (auto) 0.02 K/uL (0-0); Nucleated RBC % (auto) 2.9 %; Platelet Count 19 K/uL (130-400); RDW Coefficient of Variation 15.3 % (11.5-14.5); RDW Standard Deviation 48.1 fL (36.4-46.3); Red Blood Count 3.35 M/uL (4.63-6.08)
[2022-04-15 08:00] LABS: BUN Creatinine Ratio 25.5 (10-20); Calcium 8.4 mg/dl (8.5-10.1); Creatinine Clr Calc Pharmacy 125.3 ml/min; Est GFR (African American) 123.4 ml/min; Est GFR (Non-African American) 106.5 ml/min; Magnesium 2.1 mg/dl (1.7-2.4); Potassium 3.5 mmol/L (3.5-5.1)
[2022-04-15 08:07] LABS: ALC (manual) 0.39 K/uL (1.2-3.4); ANC (manual) 0.04 K/uL (1.4-6.5); Blast # (manual) 0.24 K/uL (0-0); Blast Cells % (manual) 35 %; Eosinophils # (manual) 0.01 K/uL (0-0.50); Eosinophils % (manual) 1 %; Lymphocytes # (manual) 0.39 K/uL (1.2-3.4); Lymphocytes % (manual) 56 %; Metamyelocytes # (manual) 0.01 K/uL (0-0); Metamyelocytes % (manual) 1 %; Monocytes # (manual) 0.01 K/uL (0.24-0.82); Monocytes % (manual) 2 %; Neutrophils # (manual) 0.04 K/uL (1.4-6.5); Neutrophils % (manual) 6 %; Rouleaux 1+
[2022-04-15] MEDS: METOPROLOL SUCC 50MG EXT REL TAB PO SCH (08:23)
[2022-04-15] MEDS: CYANOCOBALAMIN (B-12) 500 MCG TABLET PO SCH (08:23)
[2022-04-15] MEDS: ASCORBIC ACID 500 MG TAB PO SCH ×2 (08:23→21:15)
[2022-04-15] MEDS: ACYCLOVIR 400 MG TAB PO SCH ×2 (08:23→21:14)
[2022-04-15] MEDS: allopurinoL 300 MG TAB PO SCH (08:24)
[2022-04-15] MEDS: VORICONAZOLE 200 MG TABLET PO SCH ×2 (08:24→21:16)
[2022-04-15] MEDS: SODIUM CHLORIDE 1 GM TABLET PO SCH ×2 (08:24→21:15)
[2022-04-15] MEDS: ACETAMINOPHEN 500 MG TAB PO PRN ×2 (11:15→22:58)
--- NOTE | 2022-04-15 16:32 | Hospitalist Progress Note ---
Date of Service April 15, 2022 Assessment & Plan (1) Sepsis: Plan: Presents with sepsis with neutropenic fever, hypotension. With ESBL E. coli septicemia and UTI as the source Viral respiratory bio fire panel and chest x-ray negative He was having lower abdominal pain with urination prior to admission No port in place Ur cx and BCxs with ESBL E. coli Repeat blood cultures 04/12-NGTD, 04/14-NGTD Blood pressures responded to crystalloid fluid which is since been discontinued Initially was started on ertapenem and vancomycin empirically Vancomycin was discontinued after 48 hours Continued to spike fevers on 04/13, but suspected secondary to ongoing treatment of pyelonephritis and bacteremia Appreciate infectious disease consultation at that time recommendation to remain on ertapenem On 04/14, ongoing high spiking fevers and development of some lower abdominal pain-CT abdomen/pelvis obtained which shows sigmoid diverticulitis but no abscess. With prominent retroperitoneal lymphadenopathy 11 mm similar to previous. It is possible that the fevers could be secondary to the ongoing AML itself, but potentially could be a failure of treatment with ertapenem which would not cover for Pseudomonas. He was off of his levofloxacin for a few days this admission. Perhaps he has a separate intra-abdominal pseudomonal infection with the diverticulitis that is resistant to fluoroquinolones in addition to the ESBL E. coli bacteremia and UTI Discontinued ertapenem and started Meropenem on 04/14 Still with lower grade fever on 04/15 but came down with tylenol, Tmax 37.6 -meropenem 1000 mg IV every 8 hours as per discussion with infectious disease on 04/14-this will cover for both the ESBL E. coli bacteremia, UTI, as well as a Pseudomonas intra-abdominal infection/diverticulitis as well as give coverage for anaerobes and Enterococcus -Hold home levofloxacin -Continue tylenol prn fevers/pain-hopefully fevers will continue to improve -Follow repeat blood cultures from 04/12 and 04/14-remain NGTD -follow CBC,BMP, Mag in AM -will hold off on placing US-guided peripheral IV until fevers resolved and BCxs remain no growth for at least 48-72 hours -Plan to repeat blood culture 1 week post completion of IV antibiotics to ensure ongoing stability (2) Acute hypotension: Plan: Now resolved, secondary to sepsis (3) Acute diverticulitis: Plan: As above fairly asymptomatic at this point claudia reg diet (4) AML (acute myeloblastic leukemia): Plan: currently on chemo with decitabine, no longer on venetoclax due to low blood counts and previous infection -Appreciate Heme/Onc consult-plan to treat infection and then resume chemo when ANC> 500 however given current performance status, suspect not likely for stem cell tx candidate and would consider pursuing hospice at that point if AML not r esponding to treatment. BMBx 03/16 with 80% bone marrow involvement. -Referral has been made to [facility] for stem cell transplant evaluation -continue prophylactic voriconazole,acyclovir, but now holding home levofloxacin while on meropenem -continue allopurinol -Follow CBC in the morning (5) Pancytopenia: Plan: Antineoplastic induced pancytopenia as well as secondary to AML -last chemo one week prior to admission with decitabine hgb down to 7.0--> transfused 1 unit PRBCs on 04/12 Hemoglobin remained low at 7.3 on 04/13-received 1 more unit PRBCs Hemoglobin now increased appropriately to 10.1 Platelets low on admission was given 1 unit of platelets and had improvement up to 17 Platelets then back down again on 04/14 to 9-transfused platelets Now up to 19k and no significant bleeding (small amount from torn cuticle on hand) -had fever during first PRBC transfusion but do not suspect from transfusion. T ransfusion reaction labs all negative -As per platelets-oncology recommends keep above 10 in hospital and above 15 if going home soon - no active bleeding at this time continue Neutropenic precautions -follow CBC-Hopeful for bone marrow recovery over the next few days (6) Generalized weakness: Plan: Secondary to sepsis and infection PT/OT consults placed (7) Hyponatremia: Plan: Sodium mildly low at 135 and now normal Continue salt tablets 1 g p.o. twice daily Follow BMP (8) Elevated troponin: Plan: Elevated troponin-peaked at 1500, no CP, no ischemic changes on ECG. This is myocardial demand ischemia in setting of sepsis and mod-severe on last ECHO 01/2022 with underlying CAD/CABG (9) Hypertension: Plan: Continue home metoprolol with hold parameters Blood pressures are normal (10) Aortic stenosis: Plan: Moderate to severe with LVEF 60 to 65% Follow volume status, clinically volume depleted on admission and now euvolemic -Follow with cardiology as an outpt (11) Arteriosclerotic coronary artery disease: Plan: With a history of CABG Discontinued aspirin when he started chemotherapy due to thrombocytopenia Discontinued statin during recent admission for rhabdomyolysis Continue Toprol-XL (12) Pulmonary nodules: Plan: Previously symptomatic, at risk for opportunistic infections Declined invasive procedures at last pulmonary follow-up, especially given low counts and high risk -Chest CT on 03/27 ordered by pulmonology was stable from previous in 01/2022- had dense bilateral centrilobular and perifissural micronodules in conjunction with calcified mediastinal and hilar lymph nodes suspicious for sarcoidosis Follow-up as an outpatient Plan DVT prophylaxis-no chemical or mechanical due to risk of bleeding and bruising Disposition-continued stay on medical unit with telemetry. Will need home IV antibiotics eventually once medically stable. Prescription signed for meropenem and given to case folder. Eventually will need ultrasound-guided IV placed once fevers are resolved and repeat blood cultures remain without growth. Admission and Anticipated Discharge Date Admission Date: April 10, 2022 Subjective Pt had chills and sweats again this afternoon but no high fever. Received Tylenol. No abd pain, feels like appetite is picking up. No CP, SOB. Had a BM and no blood. Reports he had some bleeding from his right hand earlier today but I cannot find a tear in the skin except perhaps a cuticle tear. He is tearful at times, just feeling poorly. at bedside. Tele with HECTORR,IVCD,70-100s Review of Systems Review of Systems: All systems reviewed & are unremarkable except as noted in HPI & below Physical Exam Constitutional: WD/WN, vitals as above Eyes: + anicteric sclerae Neck: trachea midline, no thyromegaly Respiratory: normal respiratory effort, lungs clear to auscultation Cardiovascular: Rate/Rhythm: regular rate and regular rhythm Heart Sounds: + murmur (2/6 JENNIFER at R[facility]) Chest (Breasts): Chest: normal inspection of chest Gastrointestinal (Abdomen): normal bowel sounds, soft, nontender, no hepatosplenomegaly Musculoskeletal: Extremities: extremities normal to inspection; no cyanosis and no clubbing Skin: no rashes, warm and dry + lesion (Small linear blister in the webspac e between thumb and index finger on righ) Neurologic: moves all extremities and awake; no focal motor deficits Psychiatric: Orientation: alert, oriented x 3 and cooperative Affect: + tearful affect Lymphatic: no lymphedema Results & Data Results & Data ([facility]) Vital Signs (Past 12 Hours) Vital Signs Temp Pulse Pulse Resp BP Pulse Ox O2 Del Method 04/15/22 06:04 71 04/15/22 14:20 Room Air 04/15/22 11:23 37.6 C H 96 H 20 143/76 H 94 Room Air 04/15/22 08:01 36.9 C 80 20 124/74 94 Room Air Laboratory Results 04/15/22 04/15/22 Range/Units 06:59 06:59 WBC 0.70 L* (4.8-10.8) K/ul RBC 3.35 L (4.63-6.08) M/uL Hgb 10.1 L (14.0-18.0) g/dl Hct 29.7 L (40.1-51.0) % MCV 88.7 (80.0-100.0) fL MCH 30.1 (25.0-34.0) pg MCHC 34.0 (32.0-36.0) g/dL RDW Std Deviation 48.1 H (36.4-46.3) fL RDW Coeff of Marty 15.3 H (11.5-14.5) % Plt Count 19 L* D (130-400) K/uL MPV 8.7 L (9.4-12.4) fL Absolute Nucleated RBC 0.02 H (0-0) K/uL Nucleated RBC % (auto) 2.9 % Neutrophils % (Manual) 6 % Lymphocytes % (Manual) 56 % Monocytes % (Manual) 2 % Eosinophils % (Manual) 1 % Metamyelocytes % (Man) 1 % Blast Cells % (Manual) 35 % Neutrophils # (Manual) 0.04 L (1.4-6.5) K/uL Total Absolute Neuts 0.04 L* (1.4-6.5) K/uL Lymphocytes # (Manual) 0.39 L (1.2-3.4) K/uL Total Abs Lymphocytes 0.39 L (1.2-3.4) K/uL Monocytes # (Manual) 0.01 L (0.24-0.82) K/uL Eosinophils # (Manual) 0.01 (0-0.50) K/uL Metamyelocytes # (Man) 0.01 H (0-0) K/uL Blast Cells # (Man) 0.24 H (0-0) K/uL Rouleaux 1+ Sodium 141 (136-145) mmol/L Potassium 3.5 (3.5-5.1) mmol/L Chloride 107 (98-107) mmol/L Carbon Dioxide 30 (21-32) mmol/L Anion Gap 4 (3-11) BUN 12 (6-23) mg/dl Creatinine 0.47 L (0.6-1.4) mg/dl Est Cr Clr Drug Dosing 125.3 ml/min Est GFR ( Amer) 123.4 ml/min Est GFR (Non-Af Amer) 106.5 ml/min BUN/Creatinine Ratio 25.5 H (10-20) Glucose 101 H (70-99(Fasting)) mg/dl Calcium 8.4 L (8.5-10.1) mg/dl Magnesium 2.1 (1.7-2.4) mg/dl PG Care Time/CCT Total # of Minutes Spent Total Time Spent with Patient: Total time spent is greater than 50% in coordination of care (as documented) at patient's floor/unit and/or counseling patient: Coding Level of Care Code 36822 Subseq Hosp Care Lvl 3 Diagnoses Sepsis A41.9 Acute hypotension I95.9 Acute diverticulitis K57.92 AML (acute myeloblastic leukemia) C92.00 Leukemia Active/Remission status: without remission Pancytopenia D61.818 Generalized weakness R53.1 Hyponatremia E87.1 Elevated troponin R77.8 Hypertension I10 Aortic stenosis I35.0 Arteriosclerotic coronary artery disease I25.10 Pulmonary nodules R91.8 (1) AML (acute myeloblastic leukemia) Leukemia Active/Remission status: without remission Qualified Code(s): C92.00 - Acute myeloblastic leukemia, not having achieved remission
[2022-04-15] MEDS: MELATONIN 3 MG TAB PO SCH (21:16)
[2022-04-16] MEDS ORDERED: KETOROLAC TROMETHAMINE 15 MG/ML VIAL IV ONE (00:44)
[2022-04-16] MEDS: MEROPENEM 500 MG in SYRINGE 0 ML IV SCH ×4 (01:26→20:19)
[2022-04-16 07:14] LABS: Hematocrit (blood only) 25.2 % (40.1-51.0); Hemoglobin 8.9 g/dl (14.0-18.0); Mean Corpuscular Hemoglobin 30.7 pg (25.0-34.0); Mean Corpuscular Hgb Conc 35.3 g/dL (32.0-36.0); Mean Corpuscular Volume 86.9 fL (80.0-100.0); Mean Platelet Volume 10.1 fL (9.4-12.4); Platelet Count 16 K/uL (130-400); RDW Coefficient of Variation 15.1 % (11.5-14.5); RDW Standard Deviation 47.5 fL (36.4-46.3); White Blood Count 0.65 K/ul (4.8-10.8)
[2022-04-16 07:42] LABS: BUN Creatinine Ratio 24.5 (10-20); Calcium 8.1 mg/dl (8.5-10.1); Creatinine Clr Calc Pharmacy 111.1 ml/min; Est GFR (African American) 117.5 ml/min; Est GFR (Non-African American) 101.3 ml/min; Magnesium 2.2 mg/dl (1.7-2.4); Potassium 3.7 mmol/L (3.5-5.1)
[2022-04-16 07:47] LABS: ALC (manual) 0.42 K/uL (1.2-3.4); ANC (manual) 0.02 K/uL (1.4-6.5); Blast # (manual) 0.18 K/uL (0-0); Blast Cells % (manual) 27 %; Lymphocytes # (manual) 0.42 K/uL (1.2-3.4); Lymphocytes % (manual) 64 %; Metamyelocytes # (manual) 0.01 K/uL (0-0); Metamyelocytes % (manual) 1 %; Myelocytes # (manual) 0.02 K/uL (0-0); Myelocytes % (manual) 3 %; Neutrophils # (manual) 0.02 K/uL (1.4-6.5); Neutrophils % (manual) 3 %; Ovalocytes 1+; Promyelocytes # (manual) 0.01 K/uL (0-0); Promyelocytes % (manual) 1 %
--- NOTE | 2022-04-16 08:20 | Hospitalist Progress Note ---
Date of Service April 16, 2022 Assessment & Plan (1) Sepsis: Plan: Presents with sepsis with neutropenic fever, hypotension. Prior admit for sepsis w/ sacral ulceration as suspected source (looks good currently, not reddened per nursing) With ESBL E. coli septicemia and UTI as the source Viral respiratory bio fire panel and chest x-ray negative He was having lower abdominal pain with urination prior to admission No port in place Ur cx and BCxs with ESBL E. coli Repeat blood cultures 04/12-NGTD, 04/14-NGTD Blood pressures responded to crystalloid fluid which is since been discontinued Initially was started on ertapenem and vancomycin empirically Vancomycin was discontinued after 48 hours Continued to spike fevers on 04/13, but suspected secondary to ongoing treatment of pyelonephritis and bacteremia Appreciate infectious disease consultation at that time recommendation to remain on ertapenem On 04/14, ongoing high spiking fevers and development of some lower abdominal pain-CT abdomen/pelvis obtained which shows sigmoid diverticulitis but no abscess. With prominent retroperitoneal lymphadenopathy 11 mm similar to previous. It is possible that the fevers could be secondary to the ongoing AML itself, but potentially could be a failure of treatment with ertapenem which would not cover for Pseudomonas. He was off of his levofloxacin for a few days this admission. Perhaps he has a separate intra-abdominal pseudomonal infection with the diverticulitis that is resistant to fluoroquinolones in addition to the ESBL E. coli bacteremia and UTI Discontinued ertapenem and started Meropenem on 04/14 Meropenem 1000 mg IV every 8 hours as per discussion with infectious disease on 04/14-this will cover for both the ESBL E. coli bacteremia, UTI, as well as a Pseudomonas intra-abdominal infection/diverticulitis as well as give coverage for anaerobes and Enterococcus -Hold home levofloxacin Still with lower grade fever on 04/15 but came down with tylenol, Tmax 37.6 --> elevation overnight 04/15-04/16 of 39.4C, tylenol administered. Overnight resident ordered toradol but patient refused thankfully. Would not given NSAIDs/risk bleeding Added Daptomycin given continued fevers, repeat blood cultures obtained. Dr Silver covering for ID starting 04/17, will contact if any continued fevers/worsening Consulted general surgery per ID recs, appreciate assistance/recs Continue Tylenol prn fevers/pain-hopefully fevers will continue to improve Follow repeat blood cultures from 04/12 and 04/14-remain NGTD Follow CBC,BMP, Mag in AM will hold off on placing US-guided peripheral IV until fevers resolved and BCxs remain no growth for at least 48-72 hours Plan to repeat blood culture 1 week post completion of IV antibiotics to ensure ongoing stability (2) Acute hypotension: Plan: Now resolved, secondary to sepsis (3) Acute diverticulitis: Plan: As above fairly asymptomatic at this point claudia reg diet (4) AML (acute myeloblastic leukemia): Plan: currently on chemo with decitabine, no longer on venetoclax due to low blood counts and previous infection. Prior ASA and statin discontinued when started chemotherapy -Appreciate Heme/Onc consult-plan to treat infection and then resume chemo when ANC> 500 however given current performance status, suspect not likely for stem cell tx candidate and would consider pursuing hospice at that point if AML not responding to treatment. BMBx 03/16 with 80% bone marrow involvement. -Referral has been made to [facility] for stem cell transplant evaluation -continue prophylactic voriconazole,acyclovir, but now holding home levofloxacin while on meropenem -continue allopurinol Follow CBC in the morning (5) Pancytopenia: Plan: Antineoplastic induced pancytopenia as well as secondary to AML -last chemo one week prior to admission with decitabine hgb down to 7.0--> transfused 1 unit PRBCs on 04/12 Hemoglobin remained low at 7.3 on 04/13-received 1 more unit PRBCs Hemoglobin now increased appropriately to 10.1 (?if from lab error --> is 8.9 on AM labs but was 8.7 day prior to being 10.1) Platelets low on admission was given 1 unit of platelets and had improvement up to 17 Platelets then back down again on 04/14 to 9-transfused platelets 19k on 04/15--> 16k currently (small amount blood torn cuticle on hand) e on hand) -had fever during first PRBC transfusion but do not suspect from transfusion. Transfusion reaction labs all negative -As per platelets-oncology recommends keep above 10 in hospital and above 15 if going home soon - no active bleeding at this time continue Neutropenic precautions Follow CBC-Hopeful for bone marrow recovery over the next few days (6) Generalized weakness: Plan: Secondary to sepsis and infection PT/OT consults placed (7) Hyponatremia: Plan: Sodium mildly low at 135 and now normal Continue salt tablets 1 g p.o. twice daily Follow BMP (8) Elevated troponin: Plan: Elevated troponin-peaked at 1500, no CP, no ischemic changes on ECG. Hx CABG This is myocardial demand ischemia in setting of sepsis and mod-severe on last ECHO 01/2022 with underlying CAD/CABG (9) Hypertension: Plan: Continue home metoprolol with hold parameters Blood pressures are normal (10) Aortic stenosis: Plan: Moderate to severe with LVEF 60 to 65% Follow volume status, clinically volume depleted on admission and now euvolemic (maybe slightly dry, but avoiding IV fluids) -Follow with cardiology as an outpt (11) Arteriosclerotic coronary artery disease: Plan: With a history of CABG Discontinued aspirin when he started chemotherapy due to thrombocytopenia Discontinued statin during recent admission for rhabdomyolysis Continue Toprol-XL (12) Pulmonary nodules: Plan: Previously symptomatic, at risk for opportunistic infections Declined invasive procedures at last pulmonary follow-up, especially given low counts and high risk -Chest CT on 03/27 ordered by pulmonology was stable from previous in 01/2022- had dense bilateral centrilobular and perifissural micronodules in conjunction with calcified mediastinal and hilar lymph nodes suspicious for sarcoidosis Follow-up as an outpatient Plan DVT prophylaxis-no chemical or mechanical due to risk of bleeding and bruising Disposition-continued stay on medical unit with telemetry (has been sinus in the 90s) Daptomycin IV added today, continue daily given continued fevers Touch base w/ ID tomorrow, Dr Velásquez Monitor for further fevers, will need US guided IV placed once fevers resolved/bcx remain w/o growth Admission and Anticipated Discharge Date Admission Date: April 10, 2022 Supervising Physician Co-Signing Physician Notes The patient was seen and examined by me. Case discussed with SHIRA Perales. Agree with assessment and plan Subjective eval this morning. son and DIL at bedside. Just medicated with Tylenol for low grade temp discussed elevated temp overnight into this morning and decision to add daptomycin and consult surgery per ID recommendations and monitor for any further fevers. no increased bleeding reported does endorse chills with his fevers. does typically have low grade temp/chills around 11am daily after his pills kick in he states has murmur on exam but states this is known by his policyholder information clerk Dr Avalos. no chest pain/shortness of breath, abdominal pain or nausea at present. awaiting placement questions/concerns addressed at this time. Review of Systems Review of Systems: All systems reviewed & are unremarkable except as noted in HPI & below Physical Exam Constitutional: WD/WN, vitals as above Eyes: + anicteric sclerae ENMT: mm slightly dry Neck: trachea midline, no thyromegaly Respiratory: normal respiratory effort, lungs clear to auscultation Cardiovascular: Rate/Rhythm: regular rate and regular rhythm Heart Sounds: + murmur (2/6 JENNIFER at [facility]USB) Chest (Breasts): Chest: normal inspection of chest Gastrointestinal (Abdomen): normal bowel sounds, soft, nontender, no hepatosplenomegaly Musculoskeletal: Extremities: extremities normal to inspection; no cyanosis and no clubbing Skin: no rashes, warm and dry + lesion (Small linear blister in the webspace between thumb and index finger on righ) Neurologic: moves all extremities and awake; no focal motor deficits Psychiatric: Orientation: alert, oriented x 3 and cooperative Lymphatic: no lymphedema Results & Data Results & Data ([facility]) Vital Signs (Past 12 Hours) Vital Signs Temp Pulse Pulse Resp BP BP Pulse Ox 04/16/22 07:34 36.4 C L 73 18 116/66 94 04/16/22 05:42 36.5 C 72 18 114/69 96 04/16/22 04:25 36.7 C 77 20 92/52 L 95 04/16/22 04:30 99/59 L 04/15/22 22:01 87 04/16/22 01:05 37.6 C H 04/16/22 00:18 39.4 C H 105 H 18 126/69 94 04/16/22 00:12 39.4 C H 108 H 20 149/76 H 92 O2 Del Method 04/16/22 07:34 Room Air 04/16/22 05:42 Room Air 04/16/22 04:25 Room Air 04/16/22 04:30 04/15/22 22:01 04/16/22 01:05 04/16/22 00:18 Room Air 04/16/22 00:12 Room Air Laboratory Results 04/16/22 04/16/22 04/16/22 Range/Units 09:09 06:37 06:37 WBC (4.8-10.8) K/ul RBC (4.63-6.08) M/uL Hgb (14.0-18.0) g/dl Hct (40.1-51.0) % MCV (80.0-100.0) fL MCH (25.0-34.0) pg MCHC (32.0-36.0) g/dL RDW Std Deviation (36.4-46.3) fL RDW Coeff of Marty (11.5-14.5) % Plt Count (130-400) K/uL MPV (9.4-12.4) fL Neutrophils % (Manual) % Lymphocytes % (Manual) % Metamyelocytes % (Man) % Myelocytes % (Man) % Promyelocytes % (Man) % Blast Cells % (Manual) % Neutrophils # (Manual) (1.4-6.5) K/uL Total Absolute Neuts (1.4-6.5) K/uL Lymphocytes # (Manual) (1.2-3.4) K/uL Total Abs Lymphocytes (1.2-3.4) K/uL Metamyelocytes # (Man) (0-0) K/uL Myelocytes # (Manual) (0-0) K/uL Promyelocytes # (Man) (0-0) K/uL Blast Cells # (Man) (0-0) K/uL Ovalocytes Sodium 139 (136-145) mmol/L Potassium 3.7 (3.5-5.1) mmol/L Chloride 106 (98-107) mmol/L Carbon Dioxide 29 (21-32) mmol/L Anion Gap 4 (3-11) BUN 13 (6-23) mg/dl Creatinine 0.53 L (0.6-1.4) mg/dl Est Cr Clr Drug Dosing 111.1 ml/min Est GFR ( Amer) 117.5 ml/min Est GFR (Non-Af Amer) 101.3 ml/min BUN/Creatinine Ratio 24.5 H (10-20) Glucose 107 H (70-99(Fasting)) mg/dl Calcium 8.1 L (8.5-10.1) mg/dl Magnesium 2.2 (1.7-2.4) mg/dl Total Creatine Kinase 10 L (30-223) U/L Procalcitonin 0.64 H (0-0.5) ng/ml 04/16/22 Range/Units 06:37 WBC 0.65 L* (4.8-10.8) K/ul RBC 2.90 L (4.63-6.08) M/uL Hgb 8.9 L (14.0-18.0) g/dl Hct 25.2 L (40.1-51.0) % MCV 86.9 (80.0-100.0) fL MCH 30.7 (25.0-34.0) pg MCHC 35.3 (32.0-36.0) g/dL RDW Std Deviation 47.5 H (36.4-46.3) fL RDW Coeff of Amrty 15.1 H (11.5-14.5) % Plt Count 16 L* (130-400) K/uL MPV 10.1 (9.4-12.4) fL Neutrophils % (Manual) 3 % Lymphocytes % (Manual) 64 % Metamyelocytes % (Man) 1 % Myelocytes % (Man) 3 % Promyelocytes % (Man) 1 % Blast Cells % (Manual) 27 % Neutrophils # (Manual) 0.02 L (1.4-6.5) K/uL Total Absolute Neuts 0.02 L* (1.4-6.5) K/uL Lymphocytes # (Manual) 0.42 L (1.2-3.4) K/uL Total Abs Lymphocytes 0.42 L (1.2-3.4) K/uL Metamyelocytes # (Man) 0.01 H (0-0) K/uL Myelocytes # (Manual) 0.02 H (0-0) K/uL Promyelocytes # (Man) 0.01 H (0-0) K/uL Blast Cells # (Man) 0.18 H (0-0) K/uL Ovalocytes 1+ Sodium (136-145) mmol/L Potassium (3.5-5.1) mmol/L Chloride (98-107) mmol/L Carbon Dioxide (21-32) mmol/L Anion Gap (3-11) BUN (6-23) mg/dl Creatinine (0.6-1.4) mg/dl Est Cr Clr Drug Dosing ml/min Est GFR ( Amer) ml/min Est GFR (Non-Af Amer) ml/min BUN/Creatinine Ratio (10-20) Glucose (70-99(Fasting)) mg/dl Calcium (8.5-10.1) mg/dl Magnesium (1.7-2.4) mg/dl Total Creatine Kinase (30-223) U/L Procalcitonin (0-0.5) ng/ml PG Care Time/CCT Total # of Minutes Spent Total Time Spent with Patient: Total time spent is greater than 50% in coordination of care (as documented) at patient's floor/unit and/or counseling patient: Coding Level of Care Code 82920 Subseq Hosp Care Lvl 3 Diagnoses Sepsis A41.9 Acute hypotension I95.9 Acute diverticulitis K57.92 AML (acute myeloblastic leukemia) C92.00 Leukemia Active/Remission status: without remission Pancytopenia D61.818 Generalized weakness R53.1 Hyponatremia E87.1 Elevated troponin R77.8 Hypertension I10 Aortic stenosis I35.0 Arteriosclerotic coronary artery disease I25.10 Pulmonary nodules R91.8 (1) AML (acute myeloblastic leukemia) Leukemia Active/Remission status: without remission Qualified Code(s): C92.00 - Acute myeloblastic leukemia, not having achieved remission
[2022-04-16] MEDS: ASCORBIC ACID 500 MG TAB PO SCH ×2 (09:08→20:21)
[2022-04-16] MEDS: SODIUM CHLORIDE 1 GM TABLET PO SCH ×2 (09:08→20:20)
[2022-04-16] MEDS: VORICONAZOLE 200 MG TABLET PO SCH ×2 (09:08→20:19)
[2022-04-16] MEDS: ACYCLOVIR 400 MG TAB PO SCH ×2 (09:09→20:21)
[2022-04-16] MEDS: allopurinoL 300 MG TAB PO SCH (09:09)
[2022-04-16] MEDS: METOPROLOL SUCC 50MG EXT REL TAB PO SCH (09:09)
[2022-04-16] MEDS: CYANOCOBALAMIN (B-12) 500 MCG TABLET PO SCH (09:10)
--- NOTE | 2022-04-16 10:39 | Surgery Consultation ---
Date of Consultation April 16, 2022 Assessment & Plan (1) Acute diverticulitis: Minimally symptomatic. Profoundly neutropenic. No abscess or perforation noted. Would continue conservative treatment measures, IV antibiotics as per ID. Ok to continue diet, low fiber preferred. No current indication for surgical intervention - he is pancytopenic and with his overall medical condition, a poor surgical candidate. (2) Fever and neutropenia: History of Present Illness Reason for Consultation: diverticulitis Requesting Physician: SHIRA Perales Attending Physician: Emilio Calderón MD History of Present Illness 76 yr old man with AML on chemotherapy, neutropenia, fevers found to have left colonic diverticulitis on CT scan abd/ pelvis done for the fevers. He is on broad spectrum antibiotics with ID on board. No abscess or phlegmon noted on CT scan. He notes left sided and pelvic pressure intermittently in the last few weeks. Bowels have remained normal with a combination of metamucil and stool softeners which he takes regularly. No blood in the stool. No real abdominal pain. Tolerating diet. No nausea or vomiting. Has had a colonoscopy about 4-5 yrs ago at which time polyps were removed. Was due for another colonoscopy but started chemo for the cancer. No prior history of diverticulitis. PMHx notable for AML, diagnosed in November 2021. Medical oncology note reviewed - states if unable to tolerate chemo due to neutropenia, may need to consider hospice. Consult in to see if he is a stem cell candidate but this is believed to be unlikely. Also has CAD, s/p cardiac stent x 2 with history of prior [place]. Has hypertension, aortic stenosis, dyslipidemia and carotid artery plaque causing mild stenosis right, moderate stenosis left. Allergies Allergy/AdvReac Type Severity Reaction Status Date / Time diphenhydramine AdvReac Severe ITCHING Verified 04/10/22 16:45 [From Benadryl] losartan AdvReac Intermediate FATIGUE, Verified 04/10/22 16:45 CHEST PAIN oxycodone [From Percocet] AdvReac Intermediate Confusion Verified 04/10/22 16:45 lisinopril AdvReac Mild FATIGUE Verified 04/10/22 16:45 Home Medications Medication Instructions Recorded Confirmed Type ascorbic acid (vitamin C) 500 mg 500 mg PO BID 02/11/19 04/10/22 History tablet nitroglycerin 0.4 mg sublingual 0.4 mg sublingual Q5M PRN Chest 02/11/19 History tablet Pain #1 tab cyanocobalamin (vitamin B-12) 1,000 mcg PO QAM 12/12/21 04/10/22 History 1,000 mcg capsule metoprolol succinate 100 mg 50 mg PO QAM 12/12/21 04/10/22 History tablet,extended release 24 hr ondansetron 4 mg disintegrating 4 mg PO Q6H PRN Nausea 12/12/21 04/10/22 History tablet polyethylene glycol 3350 17 gram 17 g PO DAILY PRN Constipation 12/12/21 04/10/22 History oral powder packet acyclovir 400 mg tablet 400 mg PO BID #14 tabs 12/15/21 04/10/22 Rx levofloxacin 500 mg tablet 500 mg PO QAM #7 tabs 12/15/21 04/10/22 Rx voriconazole 200 mg tablet (Vfend) 200 mg PO BID #14 tabs 01/19/22 04/10/22 Rx allopurinol 300 mg tablet 300 mg PO QAM #90 tabs 02/01/22 04/10/22 Rx melatonin 3 mg tablet 6 mg PO HS #60 tabs 02/10/22 04/10/22 Rx sodium chloride 1 gram tablet 1 g PO BID #180 tabs 03/28/22 04/10/22 Rx Patient History Medical History AML (acute myeloblastic leukemia) Aortic stenosis Arteriosclerotic coronary artery disease Benign enlargement of prostate Carotid artery plaque Dyslipidemia Hypertension Past myocardial infarction Syncope Tachycardia Tubulovillous adenoma of colon Surgical History History of cardiac cath cath stent 1 first obtuse marginal branch, type bare metal cath stent 2 first saphenous vein graft, type drug-eluting History of colonoscopy History of coronary artery bypass graft x 3 History of hemorrhoidectomy S/P CABG x 3 Family History Brother Coronary heart disease 5 brothers Father Myocardial infarction Denies family history of Ovarian cancer Prostate cancer Breast cancer Colorectal cancer Lung disease Social History Smoking Status: Never smoker Tobacco Type: Cigarettes Age Started Using Tobacco: 14; Age Quit Using Tobacco: 21; packs per day: 1; Second Hand Exposure: No; Hx Alcohol Use: No Hx Substance Use: No Preferred Language: [place]dean Communication Ability: Effective Visual Impairment: Limited Hearing Ability: Use of Hearing Aid Deployment Technician Required: No Beliefs That Will Affect Care: None marital status: Current Living Situation: Spouse Current Living Situation Comment: Lives with in a house has a hospital bed downstairs current occupational status: employed 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 How many Children do You have: 4 Feels Safe at Home: Yes Childhood Exposure to Second-Hand Smoke: No caffeine: Yes (cup of coffee in morning ) Dental Care, Regularly: No Physical Activity Frequency: Daily Seatbelt Use: always Sunscreen Use: Yes Assistive Devices: Hospital Bed and Walker Physical Exam Constitutional: + thin; no acute distress Respiratory: normal respiratory effort, lungs clear to auscultation Cardiovascular: Rate/Rhythm: regular rate and regular rhythm Gastrointestinal (Abdomen): Inspection/Auscultation: abdomen normal to inspection and normal bowel sounds; abdomen not distended Percussion/Palpation: abdomen soft; abdomen nontender and no guarding Neurologic: awake; no focal motor deficits Results & Data ([facility]) Vital Signs (Past 12 Hours) Vital Signs Temp Pulse Resp BP BP Pulse Ox O2 Del Method 04/16/22 07:34 36.4 C L 73 18 116/66 94 Room Air 04/16/22 05:42 36.5 C 72 18 114/69 96 Room Air 04/16/22 04:25 36.7 C 77 20 92/52 L 95 Room Air 04/16/22 04:30 99/59 L 04/16/22 01:05 37.6 C H 04/16/22 00:18 39.4 C H 105 H 18 126/69 94 Room Air 04/16/22 00:12 39.4 C H 108 H 20 149/76 H 92 Room Air Laboratory Results 04/16/22 04/16/22 04/16/22 Range/Units 09:09 06:37 06:37 WBC (4.8-10.8) K/ul RBC (4.63-6.08) M/uL Hgb (14.0-18.0) g/dl Hct (40.1-51.0) % MCV (80.0-100.0) fL MCH (25.0-34.0) pg MCHC (32.0-36.0) g/dL RDW Std Deviation (36.4-46.3) fL RDW Coeff of Marty (11.5-14.5) % Plt Count (130-400) K/uL MPV (9.4-12.4) fL Neutrophils % (Manual) % Lymphocytes % (Manual) % Metamyelocytes % (Man) % Myelocytes % (Man) % Promyelocytes % (Man) % Blast Cells % (Manual) % Neutrophils # (Manual) (1.4-6.5) K/uL Total Absolute Neuts (1.4-6.5) K/uL Lymphocytes # (Manual) (1.2-3.4) K/uL Total Abs Lymphocytes (1.2-3.4) K/uL Metamyelocytes # (Man) (0-0) K/uL Myelocytes # (Manual) (0-0) K/uL Promyelocytes # (Man) (0-0) K/uL Blast Cells # (Man) (0-0) K/uL Ovalocytes Sodium 139 (136-145) mmol/L Potassium 3.7 (3.5-5.1) mmol/L Chloride 106 (98-107) mmol/L Carbon Dioxide 29 (21-32) mmol/L Anion Gap 4 (3-11) BUN 13 (6-23) mg/dl Creatinine 0.53 L (0.6-1.4) mg/dl Est Cr Clr Drug Dosing 111.1 ml/min Est GFR ( Amer) 117.5 ml/min Est GFR (Non-Af Amer) 101.3 ml/min BUN/Creatinine Ratio 24.5 H (10-20) Glucose 107 H (70-99(Fasting)) mg/dl Calcium 8.1 L (8.5-10.1) mg/dl Magnesium 2.2 (1.7-2.4) mg/dl Total Creatine Kinase Pending Procalcitonin 0.64 H (0-0.5) ng/ml 04/16/22 Range/Units 06:37 WBC 0.65 L* (4.8-10.8) K/ul RBC 2.90 L (4.63-6.08) M/uL Hgb 8.9 L (14.0-18.0) g/dl Hct 25.2 L (40.1-51.0) % MCV 86.9 (80.0-100.0) fL MCH 30.7 (25.0-34.0) pg MCHC 35.3 (32.0-36.0) g/dL RDW Std Deviation 47.5 H (36.4-46.3) fL RDW Coeff of Marty 15.1 H (11.5-14.5) % Plt Count 16 L* (130-400) K/uL MPV 10.1 (9.4-12.4) fL Neutrophils % (Manual) 3 % Lymphocytes % (Manual) 64 % Metamyelocytes % (Man) 1 % Myelocytes % (Man) 3 % Promyelocytes % (Man) 1 % Blast Cells % (Manual) 27 % Neutrophils # (Manual) 0.02 L (1.4-6.5) K/uL Total Absolute Neuts 0.02 L* (1.4-6.5) K/uL Lymphocytes # (Manual) 0.42 L (1.2-3.4) K/uL Total Abs Lymphocytes 0.42 L (1.2-3.4) K/uL Metamyelocytes # (Man) 0.01 H (0-0) K/uL Myelocytes # (Manual) 0.02 H (0-0) K/uL Promyelocytes # (Man) 0.01 H (0-0) K/uL Blast Cells # (Man) 0.18 H (0-0) K/uL Ovalocytes 1+ Sodium (136-145) mmol/L Potassium (3.5-5.1) mmol/L Chloride (98-107) mmol/L Carbon Dioxide (21-32) mmol/L Anion Gap (3-11) BUN (6-23) mg/dl Creatinine (0.6-1.4) mg/dl Est Cr Clr Drug Dosing ml/min Est GFR ( Amer) ml/min Est GFR (Non-Af Amer) ml/min BUN/Creatinine Ratio (10-20) Glucose (70-99(Fasting)) mg/dl Calcium (8.5-10.1) mg/dl Magnesium (1.7-2.4) mg/dl Total Creatine Kinase Procalcitonin (0-0.5) ng/ml Diagnostic Findings CT abd pelvis IV con only CLINICAL HISTORY: abdominal pain,fever,UTI TECHNIQUE: Helical axial images of the abdomen and pelvis were obtained and displayed. Automated dose lowering techniques and/or adjustment according to patient size were utilized for this exam. This exam was performed with intravenous contrast. CT DOSE: 785.02 mGycm COMPARISON: Comparison is made to CT chest 11/22/2021 FINDINGS: Lower chest: Bilateral pleural effusions are seen with associated atelectasis. Liver: Unremarkable. No focal lesions are seen. Gallbladder and biliary tree: The gallbladder is contracted. No intra- or extrahepatic biliary ductal dilation. Pancreas: Unremarkable, no focal lesions. Spleen: Splenule is incidentally noted. Adrenals: Unremarkable. Kidneys and ureters: Renal cysts are seen. Bladder: Unremarkable. Reproductive organs: Unremarkable. Bowel: There is scattered diverticula and prominent fat stranding about the sigmoid colon. The appendix is normal. Lymph nodes Retroperitoneal: Prominent lymph nodes are seen measuring up to 11 mm in diameter. Pelvic: Unremarkable. Mesenteric: Subcentimeter lymph nodes are noted. These are most prominent in the left lower quadrant. Peritoneum: Normal. Vessels: Atherosclerotic calcifications are seen. There is a saccular infrarenal aortic aneurysm measuring 32 mm, unchanged from prior exam. Abdominal wall: A fat-containing umbilical hernia is seen. Bones: Degenerative changes in the visualized spine. IMPRESSION: 1. Findings are compatible with acute diverticulitis. No evidence of abscess or perforation is seen. 2. Retroperitoneal lymph nodes are enlarged, overall similar to prior exam. 3. Infrarenal aortic aneurysm, stable.
[2022-04-16] MEDS ORDERED: DAPTOmycin 450 MG in SYRINGE 0 ML IV ONE (11:15)
[2022-04-16] MEDS: ACETAMINOPHEN 500 MG TAB PO PRN (12:11)
[2022-04-16] MEDS: MELATONIN 3 MG TAB PO SCH (20:23)
[2022-04-17] MEDS: ACETAMINOPHEN 500 MG TAB PO PRN (00:42)
[2022-04-17] MEDS: MEROPENEM 500 MG in SYRINGE 0 ML IV SCH ×4 (01:00→20:39)
[2022-04-17] MEDS ORDERED: KETOROLAC TROMETHAMINE 15 MG/ML VIAL IV ONE (02:24)
--- NOTE | 2022-04-17 07:58 | Hospitalist Progress Note ---
Date of Service April 17, 2022 Assessment & Plan (1) Sepsis: Plan: Presents with sepsis with neutropenic fever, hypotension. Prior admit for sepsis w/ sacral ulceration as suspected source (looks good currently, not reddened per nursing) With ESBL E. coli septicemia and UTI as the source Viral respiratory bio fire panel and chest x-ray negative He was having lower abdominal pain with urination prior to admission No port in place Ur cx and BCxs with ESBL E. coli Repeat blood cultures 04/12-NGTD, 04/14-NGTD Blood pressures responded to crystalloid fluid which is since been discontinued Initially was started on ertapenem and vancomycin empirically Vancomycin was discontinued after 48 hours Continued to spike fevers on 04/13, but suspected secondary to ongoing treatment of pyelonephritis and bacteremia Appreciate infectious disease consultation at that time recommendation to remain on ertapenem On 04/14, ongoing high spiking fevers and development of some lower abdominal pain-CT abdomen/pelvis obtained which shows sigmoid diverticulitis but no abscess. With prominent retroperitoneal lymphadenopathy 11 mm similar to previous. It is possible that the fevers could be secondary to the ongoing AML itself, but potentially could be a failure of treatment with ertapenem which would not cover for Pseudomonas. He was off of his levofloxacin for a few days this admission. Perhaps he has a separate intra-abdominal pseudomonal infection with the diverticulitis that is resistant to fluoroquinolones in addition to the ESBL E. coli bacteremia and UTI Discontinued ertapenem and started Meropenem on 04/14 Meropenem 1000 mg IV every 8 hours as per discussion with infectious disease on 04/14-this will cover for both the ESBL E. coli bacteremia, UTI, as well as a Pseudomonas intra-abdominal infection/diverticulitis as well as give coverage for anaerobes and Enterococcus -Hold home levofloxacin Still with lower grade fever on 04/15 but came down with tylenol, Tmax 37.6 --> elevation overnight 04/15-04/16 of 39.4C, tylenol administered. Overnight resident ordered toradol but patient refused thankfully. Would NOT given NSAIDs/risk bleeding w/ low platelets Added Daptomycin 04/16 given continued fevers, repeat blood cultures obtained and have remained negative. Procal 0.64--> 0.55 after adding the Dapto Consulted general surgery per ID recs, appreciate assistance/recs Temp 38.4C overnight, suspect these fevers are actually from his AML Plt 11, 1 unit platelets ordered for this morning Continue Tylenol prn fevers/pain Follow repeat blood cultures from 04/12 and 04/14-remain NGTD, additional set yesterday without growth Can place US guided peripheral IV for tomorrow and send on IV abx if remains negative. Plan to repeat blood culture 1 week post completion of IV antibiotics to ensure ongoing stability Consultation placed for palliative for goals of care as if patient not candidate for stem cell based on response to chemo, may need to consider hospice Follow CBC,BMP, Mag in AM (2) Acute hypotension: Plan: Now resolved, secondary to sepsis (3) Acute diverticulitis: Plan: As above fairly asymptomatic at this point claudia reg diet (4) AML (acute myeloblastic leukemia): Plan: currently on chemo with decitabine, no longer on venetoclax due to low blood counts and previous infection. Prior ASA and statin discontinued when started chemotherapy -Appreciate Heme/Onc consult-plan to treat infection and then resume chemo when ANC> 500 however given current performance status, suspect not likely for stem cell tx candidate and would consider pursuing hospice at that point if AML not responding to treatment. BMBx 03/16 with 80% bone marrow involvement. -Referral has been made to [facility] for stem cell transplant evaluation -continue prophylactic voriconazole,acyclovir, but now holding home levofloxacin while on meropenem -continue allopurinol Hgb stable, but 8.9-->8.5, no bleeding reported Platelets this morning for plt 11k, monitor labs in AM (5) Pancytopenia: Plan: Antineoplastic induced pancytopenia as well as secondary to AML -last chemo one week prior to admission with decitabine hgb down to 7.0--> transfused 1 unit PRBCs on 04/12 Hemoglobin remained low at 7.3 on 04/13-received 1 more unit PRBCs Hemoglobin now increased appropriately to 10.1 (?if from lab error --> is 8.9 on AM labs but was 8.7 day prior to being 10.1) Platelets low on admission was given 1 unit of platelets and had improvement up to 17 Platelets then back down again on 04/14 to 9-transfused platelets 19k on 04/15--> 16k currently (small amount blood torn cuticle on hand) e on hand) Had fever during first PRBC transfusion but do not suspect from transfusion. Transfusion reaction labs all negative -As per platelets-oncology recommends keep above 10 in hospital and above 15 if going home soon - no active bleeding at this time continue Neutropenic precautions Follow CBC-Hopeful for bone marrow recovery over the next few days (6) Generalized weakness: Plan: Secondary to sepsis and infection PT/OT consults placed (7) Hyponatremia: Plan: Sodium mildly low at 135 and now normal Continue salt tablets 1 g p.o. twice daily Follow BMP (8) Elevated troponin: Plan: Elevated troponin-peaked at 1500, no CP, no ischemic changes on ECG. Hx CABG This is myocardial demand ischemia in setting of sepsis and mod-severe on last ECHO 01/2022 with underlying CAD/CABG (9) Hypertension: Plan: Continue home metoprolol with hold parameters Blood pressures are normal (10) Aortic stenosis: Plan: Moderate to severe with LVEF 60 to 65% Follow volume status, clinically volume depleted on admission and now euvolemic -Follow with cardiology as an outpt (11) Arteriosclerotic coronary artery disease: Plan: With a history of CABG Discontinued aspirin when he started chemotherapy due to thrombocytopenia Discontinued statin during recent admission for rhabdomyolysis Continue Toprol-XL (12) Pulmonary nodules: Plan: Previously symptomatic, at risk for opportunistic infections Declined invasive procedures at last pulmonary follow-up, especially given low counts and high risk -Chest CT on 03/27 ordered by pulmonology was stable from previous in 01/2022- had dense bilateral centrilobular and perifissural micronodules in conjunction with calcified mediastinal and hilar lymph nodes suspicious for sarcoidosis Follow-up as an outpatient Plan DVT prophylaxis-no chemical or mechanical due to risk of bleeding and bruising Dispo: continued on Meropenem/Daptomycin Repeat blood cultures NGTD, will touch base w/ ID in AM but if remains negative can place peripheral IV and send on IV abx if CM able to arrange. Will need to give CM rx for Dapto but possible not to continue at d/c pending discussion w/ ID tomorrow Admission and Anticipated Discharge Date Admission Date: April 10, 2022 Supervising Physician Co-Signing Physician Notes The patient was not seen by me. Case discussed with SHIRA Perales. Agree with assessment and plan Subjective Eval this morning, he is waiting for fever which typically occurs around 11. Less high grade temp last evening despite adding dapto, suspect from AML. No chest pain/shortness of breath.Eating/drinking, no abdominal pain. No urinary symptoms, and states "everything else seems to be fine". Discussed low platelets, getting 1 u as I was leaving room. No bleeding reported. Ref to [facility] for consideration for stem cell transplant, but unsure if candidate. Discussed messaging heme/onc for further direction/consultation with palliative. Review of Systems Review of Systems: All systems reviewed & are unremarkable except as noted in HPI & below Physical Exam Constitutional: WD/WN, vitals as above Eyes: + anicteric sclerae ENMT: mm slightly dry Neck: trachea midline, no thyromegaly Respiratory: normal respiratory effort, lungs clear to auscultation Cardiovascular: Rate/Rhythm: regular rate and regular rhythm Heart Sounds: + murmur (2/6 JENNIFER at [facility]USB) Chest (Breasts): Chest: normal inspection of chest Gastrointestinal (Abdomen): normal bowel sounds, soft, nontender, no hepatosplenomegaly Musculoskeletal: Extremities: extremities normal to inspection; no cyanosis and no clubbing Skin: no rashes, warm and dry + lesion (Small linear blister in the webspace between thumb and index finger on righ) looks good, no further bleeding/lesions Neurologic: moves all extremities and awake; no focal motor deficits Psychiatric: Orientation: alert, oriented x 3 and cooperative Lymphatic: no lymphedema Results & Data Results & Data ([facility]) Vital Signs (Past 12 Hours) Vital Signs Temp Pulse Pulse Resp BP Pulse Ox O2 Del Method 04/17/22 04:33 37.1 C 86 18 120/54 L 96 Room Air 04/16/22 22:03 77 04/17/22 03:26 37.0 C 04/17/22 00:40 38.4 C H 04/16/22 22:08 36.8 C 76 18 116/65 96 Room Air Laboratory Results 04/17/22 04/17/22 04/17/22 Range/Units 07:21 07:21 07:21 WBC 0.70 L* (4.8-10.8) K/ul RBC 2.79 L (4.63-6.08) M/uL Hgb 8.5 L (14.0-18.0) g/dl Hct 24.6 L (40.1-51.0) % MCV 88.2 (80.0-100.0) fL MCH 30.5 (25.0-34.0) pg MCHC 34.6 (32.0-36.0) g/dL RDW Std Deviation 47.1 H (36.4-46.3) fL RDW Coeff of Marty 14.8 H (11.5-14.5) % Plt Count 11 L* (130-400) K/uL MPV 10.1 (9.4-12.4) fL Immature Gran % (Auto) % Neut % (Auto) % Lymph % (Auto) % [place] % (Auto) % Eos % (Auto) % Baso % (Auto) % Neut # (Auto) (1.4-6.5) K/uL Lymph # (Auto) (1.2-3.4) K/uL [place] # (Auto) (0.24-0.82) K/uL Eos # (Auto) (0-0.50) K/uL Baso # (Auto) (0-0.2) K/uL Immature Gran # (Auto) (0.00-0.02) K/uL Absolute Nucleated RBC 0.02 H (0-0) K/uL Nucleated RBC % (auto) 2.9 % Neutrophils % (Manual) 4 % Lymphocytes % (Manual) 64 % Monocytes % (Manual) 1 % Eosinophils % (Manual) 0 % Promyelocytes % (Man) 3 % Blast Cells % (Manual) 28 % Neutrophils # (Manual) 0.03 L (1.4-6.5) K/uL Total Absolute Neuts 0.03 L* (1.4-6.5) K/uL Lymphocytes # (Manual) 0.45 L (1.2-3.4) K/uL Total Abs Lymphocytes 0.45 L (1.2-3.4) K/uL Monocytes # (Manual) 0.01 L (0.24-0.82) K/uL Eosinophils # (Manual) 0.00 (0-0.50) K/uL Promyelocytes # (Man) 0.02 H (0-0) K/uL Blast Cells # (Man) 0.20 H (0-0) K/uL Ovalocytes 1+ Sodium 137 (136-145) mmol/L Potassium 3.7 (3.5-5.1) mmol/L Chloride 104 (98-107) mmol/L Carbon Dioxide 28 (21-32) mmol/L Anion Gap 5 (3-11) BUN 13 (6-23) mg/dl Creatinine 0.52 L (0.6-1.4) mg/dl Est Cr Clr Drug Dosing 113.3 ml/min Est GFR ( Amer) 118.4 ml/min Est GFR (Non-Af Amer) 102.1 ml/min BUN/Creatinine Ratio 25.0 H (10-20) Glucose 106 H (70-99(Fasting)) mg/dl Calcium 7.9 L (8.5-10.1) mg/dl Magnesium 2.1 (1.7-2.4) mg/dl Total Bilirubin 0.5 (0.2-1.0) mg/dl AST 15 (13-39) U/L ALT 11 (7-52) U/L Alkaline Phosphatase 48 (34-104) U/L Total Creatine Kinase (30-223) U/L Total Protein 5.5 L (6.0-8.3) gm/dl Albumin 2.5 L (3.4-5.0) gm/dl Globulin 3.0 (2.5-4.0) gm/dl Albumin/Globulin Ratio 0.8 L (0.9-2) Procalcitonin 0.55 H (0-0.5) ng/ml 04/16/22 04/16/22 Range/Units 09:09 06:37 WBC (4.8-10.8) K/ul RBC (4.63-6.08) M/uL Hgb (14.0-18.0) g/dl Hct (40.1-51.0) % MCV (80.0-100.0) fL MCH (25.0-34.0) pg MCHC (32.0-36.0) g/dL RDW Std Deviation (36.4-46.3) fL RDW Coeff of Marty (11.5-14.5) % Plt Count (130-400) K/uL MPV (9.4-12.4) fL Immature Gran % (Auto) % Neut % (Auto) % Lymph % (Auto) % [place] % (Auto) % Eos % (Auto) % Baso % (Auto) % Neut # (Auto) (1.4-6.5) K/uL Lymph # (Auto) (1.2-3.4) K/uL [place] # (Auto) (0.24-0.82) K/uL Eos # (Auto) (0-0.50) K/uL Baso # (Auto) (0-0.2) K/uL Immature Gran # (Auto) (0.00-0.02) K/uL Absolute Nucleated RBC (0-0) K/uL Nucleated RBC % (auto) % Neutrophils % (Manual) % Lymphocytes % (Manual) % Monocytes % (Manual) % Eosinophils % (Manual) % Promyelocytes % (Man) % Blast Cells % (Manual) % Neutrophils # (Manual) (1.4-6.5) K/uL Total Absolute Neuts (1.4-6.5) K/uL Lymphocytes # (Manual) (1.2-3.4) K/uL Total Abs Lymphocytes (1.2-3.4) K/uL Monocytes # (Manual) (0.24-0.82) K/uL Eosinophils # (Manual) (0-0.50) K/uL Promyelocytes # (Man) (0-0) K/uL Blast Cells # (Man) (0-0) K/uL Ovalocytes Sodium (136-145) mmol/L Potassium (3.5-5.1) mmol/L Chloride (98-107) mmol/L Carbon Dioxide (21-32) mmol/L Anion Gap (3-11) BUN (6-23) mg/dl Creatinine (0.6-1.4) mg/dl Est Cr Clr Drug Dosing ml/min Est GFR ( Amer) ml/min Est GFR (Non-Af Amer) ml/min BUN/Creatinine Ratio (10-20) Glucose (70-99(Fasting)) mg/dl Calcium (8.5-10.1) mg/dl Magnesium (1.7-2.4) mg/dl Total Bilirubin (0.2-1.0) mg/dl AST (13-39) U/L ALT (7-52) U/L Alkaline Phosphatase (34-104) U/L Total Creatine Kinase 10 L (30-223) U/L Total Protein (6.0-8.3) gm/dl Albumin (3.4-5.0) gm/dl Globulin (2.5-4.0) gm/dl Albumin/Globulin Ratio (0.9-2) Procalcitonin 0.64 H (0-0.5) ng/ml PG Care Time/CCT Total # of Minutes Spent Total Time Spent with Patient: Total time spent is greater than 50% in coordination of care (as documented) at patient's floor/unit and/or counseling patient: Coding Level of Care Code 74996 Subseq Hosp Care Lvl 3 Diagnoses Sepsis A41.9 Acute hypotension I95.9 Acute diverticulitis K57.92 AML (acute myeloblastic leukemia) C92.00 Leukemia Active/Remission status: without remission Pancytopenia D61.818 Generalized weakness R53.1 Hyponatremia E87.1 Elevated troponin R77.8 Hypertension I10 Aortic stenosis I35.0 Arteriosclerotic coronary artery disease I25.10 Pulmonary nodules R91.8 (1) AML (acute myeloblastic leukemia) Leukemia Active/Remission status: without remission Qualified Code(s): C92.00 - Acute myeloblastic leukemia, not having achieved remission
[2022-04-17 08:16] LABS: Hematocrit (blood only) 24.6 % (40.1-51.0); Hemoglobin 8.5 g/dl (14.0-18.0); Mean Corpuscular Hemoglobin 30.5 pg (25.0-34.0); Mean Corpuscular Hgb Conc 34.6 g/dL (32.0-36.0); Mean Corpuscular Volume 88.2 fL (80.0-100.0); Mean Platelet Volume 10.1 fL (9.4-12.4); Nucleated RBC # (auto) 0.02 K/uL (0-0); Nucleated RBC % (auto) 2.9 %; Platelet Count 11 K/uL (130-400); RDW Coefficient of Variation 14.8 % (11.5-14.5); RDW Standard Deviation 47.1 fL (36.4-46.3); Red Blood Count 2.79 M/uL (4.63-6.08)
[2022-04-17 08:17] LABS: Albumin Globulin Ratio 0.8 (0.9-2); Albumin Level 2.5 gm/dl (3.4-5.0); Bilirubin,Total 0.5 mg/dl (0.2-1.0); Calcium 7.9 mg/dl (8.5-10.1); Creatinine Clr Calc Pharmacy 113.3 ml/min; Est GFR (African American) 118.4 ml/min; Est GFR (Non-African American) 102.1 ml/min; Magnesium 2.1 mg/dl (1.7-2.4); Potassium 3.7 mmol/L (3.5-5.1); Total Protein 5.5 gm/dl (6.0-8.3)
[2022-04-17 09:19] LABS: ALC (manual) 0.45 K/uL (1.2-3.4); ANC (manual) 0.03 K/uL (1.4-6.5); Blast Cells % (manual) 28 %; Eosinophils % (manual) 0 %; Lymphocytes # (manual) 0.45 K/uL (1.2-3.4); Lymphocytes % (manual) 64 %; Monocytes # (manual) 0.01 K/uL (0.24-0.82); Monocytes % (manual) 1 %; Neutrophils # (manual) 0.03 K/uL (1.4-6.5); Neutrophils % (manual) 4 %; Ovalocytes 1+; Promyelocytes # (manual) 0.02 K/uL (0-0); Promyelocytes % (manual) 3 %
[2022-04-17] MEDS: VORICONAZOLE 200 MG TABLET PO SCH ×2 (09:37→20:45)
[2022-04-17] MEDS: allopurinoL 300 MG TAB PO SCH (09:38)
[2022-04-17] MEDS: ASCORBIC ACID 500 MG TAB PO SCH ×2 (09:38→20:46)
[2022-04-17] MEDS: METOPROLOL SUCC 50MG EXT REL TAB PO SCH (09:38)
[2022-04-17] MEDS: SODIUM CHLORIDE 1 GM TABLET PO SCH ×2 (09:38→20:45)
[2022-04-17] MEDS: ACYCLOVIR 400 MG TAB PO SCH ×2 (09:38→20:46)
[2022-04-17] MEDS: CYANOCOBALAMIN (B-12) 500 MCG TABLET PO SCH (09:39)
--- NOTE | 2022-04-17 10:39 | Palliative Care Consultation ---
Date of Consultation April 17, 2022 Assessment & Plan (1) Palliative care encounter: Met with pt/family. Provided overview of Palliative Medicine, a medicine subspecialty that provides specialized medical care for people living with a serious illness by offering a focus on quality of life. Palliative Medicine is not the same as hospice. Palliative Medicine works to improve QOL through reduction of symptom burden/more control over their illness, for both the patient and the family. Palliative medicine clinicians are board certified, specially-trained and work as partners in patient are with the medical teams, to provide an extra layer of support. Palliative care is based on the needs of the patient, not the prognosis, and is appropriate at any age and at any stage in a serious illness; it can be provided along with curative treatment. Palliative Medicine clinicians are also trained in advanced communication methodologies, to facilitate complex discussions about advanced illness planning, which are needed to help assure that the treatment choices match the patient's goals, aka delivering Goal Concordant care. Finally, we discussed that hospice is a visiting nurse service offered through Medicare, which focuses on quality of life and symptom management for patients with terminal illness, with life expectancy less than 6 month. Hospice emphasizes symptom management at end of life. (2) Advanced care planning/counseling discussion: Patient's shares that their son and wbunhyff-up-luj reside in [place]. Her [id number] was recently treated for colon cancer at the [facility]. Their son has been insisting that patient come down there to see if his bone marrow transplant evaluation, so is asking if patient's information could be submitted to the [facility] bone marrow transplant team for further consideration and evaluation. She notes they are also waiting to hear from [facility]. She feels it is urgent that "we get a plan together right away and get this ball rolling." We visited there prior d iscussion with oncology here were our concerns about his persistently low ANC, chronic sepsis and infection status, declining performance status and overall generalized weakness and decline are very concerning for progressive disease and therefore significantly continues to diminish the likelihood for bone marrow transplant. Patient's is reluctant to further explore the implications of these circumstances, choosing to focus instead on awaiting determination of whether or not he can be a candidate for bone marrow transplant. She states that they will cross that bridge when they come to it. Patient notes that the reason he had held off seeking further evaluation at [facility] was due to the distance from their home. notes that he would prefer seeking treatment and evaluation at [facility]. I provided patient and his additional information from get [email or web address] with regards to palliative care interventions for bone marrow transplant patients as well as some generic information about palliative care services. Time spent: 22 minutes. (3) Sepsis: Patient sepsis is slowly improving with treatment but his ANC remains persistently below 500. Neutropenic precautions continue. Diverticulitis noted on CAT scan. No surgical indication at this time. (4) Fever and neutropenia: Neutropenic precautions continue (5) AML (acute myeloblastic leukemia): Persistently low ANC. Patient is most likely not a candidate for bone marrow transplant. However would like to hear this directly from the transplant centers before addressing any additional concerns or future plans. Leukemia Active/Remission status: without remission Qualified Code(s): C92.00 - Acute myeloblastic leukemia, not having achieved remission (6) Pancytopenia: (7) Generalized weakness: Plan I have updated the primary team and oncology the patient and his would like their information now submitted to [facility] for further consideration of a BMT. This will be done by oncology. We are also waiting to hear back from [facility]. Patient did seem willing to further explore some questions about advance care planning but his was not. He deferred to her preference at this time. She wants to hear from both transplant centers before exploring any additional considerations or options. We very briefly discussed that the concerns of all the medical teams at this time are that the progression of his AML is transitioning to an advanced age which is likely not going to be amenable to treatment or further cancer directed therapies. I suspect that he is fernandez sitioning to an end-stage or terminal AML phase whereupon hospice would provide them with the most support and resource at this time. We will plan for a follow-up on Sunday with hopes that we may have some additional information from the transplant centers at that time. Brandi Alfaro DNP Clinical Director, Palliative Medicine History of Present Illness Reason for Consultation: On 04/17/22 @ 09:27 Milka Fenton Wrote To Xin Valencia goals of care, AML Attending Physician: Emilio Calderón MD History of Present Illness 76yo male with AML, admitted 04/10/22 with sepsis - ESBL E. coli septicemia and UTI as the source. He has +left colonic diverticulitis on CT scan abd/ pelvis, on broad spectrum antibiotics. ID engaged. patient c/o left side abd and pelvic ache with pressure that comes and goes x 4 weeks, but normal BMs (he is on a regimen of metamucil + stool softeners) and no n/v. He remains pancytopenic. For his AML, he is s/p 3 cycles decitabine, most recent dose was a 4 day tx 03/27 - 03/31/2022. Oncology had a bone marrow biopsy obtained prior to cycle 3 which revealed residual disease/80% bone marrow involvement by AML.He has been on venetoclax since December, due to poor performance status as well as recurrent admissions for neutropenic sepsis. He presented with neutropenic fever and hypotension a couple of days ago and was found to have ESBL sepsis. Dr Sevilla met with pt and : "I had an extensive discussion with patient and his . Explained to them that his presentation at this time with sepsis is likely due to neutropenia from AML as well as recent treatment. Would recommend continue treatment of his infection. After discharge from hospital, will plan to resume treatment when his ANC is closer to 500 in order to reduce risk of recurrent admissions with neutropenic sepsis. Regarding his AML, presence of residual disease with 80% bone marrow involvement by AML on recent bone marrow biopsy which was obtained after 2 cycles of chemotherapy indicates poor overall prognosis. If counts do not improve with further treatment, explained to patient and his that we have to consider supportive care/hospice. Placed a referral to [facility] for evaluation by stem cell transplant team to see if he would be a candidate for bone marrow transplant. However, given 80% residual involvement by AML and current performance status he would likely not be a candidate at this time -Recommend continued treatment for neutropenic sepsis -Recommend maintaining hemoglobin around 7.5 and platelet count around 15,000 -Continue acyclovir and voriconazole." PMH: CAD, s/p cardiac stent x 2 s/p prior [place]; HTN, aortic stenosis, HLD, carotid artery plaque causing mild stenosis right, moderate stenosis left. A referral has been submitted to [facility] for BMT eval. Awaiting response, but it has been noted that if he is not a candidate for BMT, hospice is recommended. Patient is seen bedside together with his . He remains on neutropenic precautions. His mood is slightly subdued through our evaluation. He denies any significant pain at this time. Reports that he has had a mild but intermittent pressure-like feeling in his abdomen for approximately 4 weeks with recent imaging confirming diverticulitis. He is reassured that surgery does not feel any surgical intervention is warranted. shares that they are awaiting an answer from [facility] with regards to whether or not patient would be a candidate for bone marrow transplant. They are aware from a detailed conversation with Dr. Burgos earlier that due to his very severe neutropenia and persistent ANC below 500 it is unlikely he will be a candidate for BMT. Allergies Allergy/AdvReac Type Severity Reaction Status Date / Time diphenhydramine AdvReac Severe ITCHING Verified 04/10/22 16:45 [From Benadryl] losartan AdvReac Intermediate FATIGUE, Verified 04/10/22 16:45 CHEST PAIN oxycodone [From Percocet] AdvReac Intermediate Confusion Verified 04/10/22 16:45 lisinopril AdvReac Mild FATIGUE Verified 04/10/22 16:45 Home Medications Medication Instructions Recorded Confirmed Type ascorbic acid (vitamin C) 500 mg 500 mg PO BID 02/11/19 04/10/22 History tablet nitroglycerin 0.4 mg sublingual 0.4 mg sublingual Q5M PRN Chest 02/11/19 04/10/22 History tablet Pain #1 tab cyanocobalamin (vitamin B-12) 1,000 mcg PO QAM 12/12/21 04/10/22 History 1,000 mcg capsule metoprolol succinate 100 mg 50 mg PO QAM 12/12/21 04/10/22 History tablet,extended release 24 hr ondansetron 4 mg disintegrating 4 mg PO Q6H PRN Nausea 12/12/21 04/10/22 History tablet polyethylene glycol 3350 17 gram 17 g PO DAILY PRN Constipation 12/12/21 04/10/22 History oral powder packet acyclovir 400 mg tablet 400 mg PO BID #14 tabs 12/15/21 04/10/22 Rx levofloxacin 500 mg tablet 500 mg PO QAM #7 tabs 12/15/21 04/10/22 Rx voriconazole 200 mg tablet (Vfend) 200 mg PO BID #14 tabs 10/06/22 12/26/22 Rx allopurinol 300 mg tablet 300 mg PO QAM #90 tabs 02/01/22 04/10/22 Rx melatonin 3 mg tablet 6 mg PO HS #60 tabs 02/10/22 04/10/22 Rx sodium chloride 1 gram tablet 1 g PO BID #180 tabs 03/28/22 04/10/22 Rx metronidazole 500 mg tablet 500 mg PO BID #11 tabs 04/18/22 Rx sulfamethoxazole 800 1 tab PO BID 5 days #11 tabs 04/18/22 Rx mg-trimethoprim 160 mg tablet (Bactrim DS) Patient History Medical History (Updated 04/17/22 @ 10:40 by Brandi Alfaro DNP) Advanced care planning/counseling discussion AML (acute myeloblastic leukemia) Aortic stenosis Arteriosclerotic coronary artery disease Benign enlargement of prostate Carotid artery plaque Dyslipidemia Hypertension Palliative care encounter Past myocardial infarction Syncope Tachycardia Tubulovillous adenoma of colon Surgical History History of cardiac cath cath stent 1 first obtuse marginal branch, type bare metal cath stent 2 first saphenous vein graft, type drug-eluting History of colonoscopy History of coronary artery bypass graft x 3 History of hemorrhoidectomy S/P CABG x 3 Family History Brother Coronary heart disease 5 brothers Father Myocardial infarction Denies family history of Ovarian cancer Prostate cancer Breast cancer Colorectal cancer Lung disease Social History Smoking Status: Never smoker Tobacco Type: Cigarettes Age Started Using Tobacco: 14; Age Quit Using Tobacco: 21; packs per day: 1; Second Hand Exposure: No; Hx Alcohol Use: No Hx Substance Use: No Preferred Language: Cuban Communication Ability: Effective Visual Impairment: Limited Hearing Ability: Use of Hearing Aid Picker Required: No Beliefs That Will Affect Care: None marital status: Current Living Situation: Spouse Current Living Situation Comment: Lives with in a house has a hospital bed downstairs current occupational status: employed 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 His face is flushed. He appears slightly warm. He is anxious. Teresa of speech is steady but at times pressured. He has some generalized weakness. Mild abdominal distention. Breathing is easy with a regular effort at rest and no conversational dyspnea is noted. He does not have any overt JVD. His skin is warm, pink with facial flushing as noted above. His mood is subdued. He is awake alert and oriented x3. Results & Data ([facility]) Vital Signs (Past 12 Hours) Vital Signs Temp Pulse Pulse Resp BP BP BP 04/17/22 10:00 36.3 C L 68 18 105/63 04/17/22 09:45 36.5 C 74 18 110/66 04/17/22 09:21 36.3 C L 71 16 113/65 04/17/22 07:33 36.3 C L 68 17 103/66 04/17/22 04:33 37.1 C 86 18 120/54 L 04/17/22 03:26 37.0 C 04/17/22 00:40 38.4 C H Pulse Ox O2 Del Method 04/17/22 10:00 97 04/17/22 09:45 97 04/17/22 09:21 99 04/17/22 07:33 96 Room Air 04/17/22 04:33 96 Room Air 04/17/22 03:26 04/17/22 00:40 Laboratory Results Labs and imaging reviewed Diagnostic Findings Labs and imaging reviewed PG Care Time/CCT Total # of Minutes Spent Total Time Spent: 72 Total Time Spent with Patient: Total time spent is greater than 50% in coordination of care (as documented) at patient's floor/unit and/or counseling patient: I spent 72 minutes overall addressing this complex case: 15 in medical data review/discussion with referring provider(s) and/or preparation for the visit 25 in direct interaction with the patient []and/or [] 22 Advance Care Planning/Goals of Care discussions as detailed above in note (must be >16min) 5 in subsequent review and synthesis of assessment and plan 5 in communicating with other providers regarding the patient's case: primary team, nursing, oncology Prolonged Care Time Prolonged Care Time: Yes Advanced Care Planning 14648 Advanced Care Planning 30 Min Coding Level of Care Code New Pt INP/OBS CONSULT LVL 5, 80 MIN Patient Type New Medical Decision Making High Complexity Diagnoses Palliative care encounter Z51.5 Advanced care planning/counseling discussion Z71.89 Sepsis A41.9 Fever and neutropenia D70.9; R50.81 AML (acute myeloblastic leukemia) C92.00 Leukemia Active/Remission status: without remission Pancytopenia D61.818 Generalized weakness R53.1 Additional Codes Prolonged Care Time - Prolonged Care Time: Yes ([id number]) Advanced Care Planning - 36551 Advanced Care Planning 30 Min: 99100 Advanced Care Planning 30 Min ([id number])
[2022-04-17] MEDS: DAPTOmycin 450 MG in SYRINGE 0 ML IV SCH (11:25)
--- NOTE | 2022-04-17 14:31 | Surgery Progress Note ---
Date of Service April 17, 2022 Assessment & Plan (1) Acute diverticulitis: Plan: Minimally symptomatic. Profoundly neutropenic. No abscess or perforation noted. Would continue conservative treatment measures, IV antibiotics as per ID. Ok to continue diet, low fiber preferred. No current indication for surgical intervention - he is pancytopenic and with his overall medical condition, a poor surgical candidate. Palliative care consult noted and reviewed. No new recommendations - will sign off. Please call with questions. (2) Fever and neutropenia: Admission and Anticipated Discharge Date Admission Date: April 10, 2022 Subjective No complaint of abdominal pain. tolerating diet. Met with palliative care. Physical Exam Constitutional: + thin; no acute distress Gastrointestinal (Abdomen): Inspection/Auscultation: abdomen normal to inspection and normal bowel sounds; abdomen not distended Percussion/Palpation: abdomen soft; abdomen nontender and no guarding Neurologic: awake; no focal motor deficits Results & Data ([facility]) Vital Signs (Past 12 Hours) Vital Signs Temp Pulse Pulse Resp BP BP BP 04/17/22 13:00 37.1 C 71 18 127/77 04/17/22 12:30 37.1 C 71 18 136/73 04/17/22 12:29 36.5 C 69 18 127/68 04/17/22 12:19 04/17/22 11:30 36.6 C 73 18 112/65 04/17/22 10:30 36.5 C 71 18 113/63 04/17/22 10:00 36.3 C L 68 18 105/63 04/17/22 09:45 36.5 C 74 18 110/66 04/17/22 09:21 36.3 C L 71 16 113/65 04/17/22 07:33 36.3 C L 68 17 103/66 04/17/22 04:33 37.1 C 86 18 120/54 L 04/17/22 03:26 37.0 C Pulse Ox O2 Del Method 04/17/22 13:00 97 04/17/22 12:30 97 04/17/22 12:29 96 Room Air 04/17/22 12:19 Room Air 04/17/22 11:30 95 04/17/22 10:30 95 04/17/22 10:00 97 04/17/22 09:45 97 04/17/22 09:21 99 04/17/22 07:33 96 Room Air 04/17/22 04:33 96 Room Air 04/17/22 03:26 Laboratory Results 04/17/22 04/17/22 04/17/22 Range/Units 07:21 07:21 07:21 WBC 0.70 L* (4.8-10.8) K/ul RBC 2.79 L (4.63-6.08) M/uL Hgb 8.5 L (14.0-18.0) g/dl Hct 24.6 L (40.1-51.0) % MCV 88.2 (80.0-100.0) fL MCH 30.5 (25.0-34.0) pg MCHC 34.6 (32.0-36.0) g/dL RDW Std Deviation 47.1 H (36.4-46.3) fL RDW Coeff of Marty 14.8 H (11.5-14.5) % Plt Count 11 L* (130-400) K/uL MPV 10.1 (9.4-12.4) fL Immature Gran % (Auto) % Neut % (Auto) % Lymph % (Auto) % Taylor % (Auto) % Eos % (Auto) % Baso % (Auto) % Neut # (Auto) (1.4-6.5) K/uL Lymph # (Auto) (1.2-3.4) K/uL Taylor # (Auto) (0.24-0.82) K/uL Eos # (Auto) (0-0.50) K/uL Baso # (Auto) (0-0.2) K/uL Immature Gran # (Auto) (0.00-0.02) K/uL Absolute Nucleated RBC 0.02 H (0-0) K/uL Nucleated RBC % (auto) 2.9 % Neutrophils % (Manual) 4 % Lymphocytes % (Manual) 64 % Monocytes % (Manual) 1 % Eosinophils % (Manual) 0 % Promyelocytes % (Man) 3 % Blast Cells % (Manual) 28 % Neutrophils # (Manual) 0.03 L (1.4-6.5) K/uL Total Absolute Neuts 0.03 L* (1.4-6.5) K/uL Lymphocytes # (Manual) 0.45 L (1.2-3.4) K/uL Total Abs Lymphocytes 0.45 L (1.2-3.4) K/uL Monocytes # (Manual) 0.01 L (0.24-0.82) K/uL Eosinophils # (Manual) 0.00 (0-0.50) K/uL Promyelocytes # (Man) 0.02 H (0-0) K/uL Blast Cells # (Man) 0.20 H (0-0) K/uL Ovalocytes 1+ Sodium 137 (136-145) mmol/L Potassium 3.7 (3.5-5.1) mmol/L Chloride 104 (98-107) mmol/L Carbon Dioxide 28 (21-32) mmol/L Anion Gap 5 (3-11) BUN 13 (6-23) mg/dl Creatinine 0.52 L (0.6-1.4) mg/dl Est Cr Clr Drug Dosing 113.3 ml/min Est GFR ( Amer) 118.4 ml/min Est GFR (Non-Af Amer) 102.1 ml/min BUN/Creatinine Ratio 25.0 H (10-20) Glucose 106 H (70-99(Fasting)) mg/dl Calcium 7.9 L (8.5-10.1) mg/dl Magnesium 2.1 (1.7-2.4) mg/dl Total Bilirubin 0.5 (0.2-1.0) mg/dl AST 15 (13-39) U/L ALT 11 (7-52) U/L Alkaline Phosphatase 48 (34-104) U/L Total Protein 5.5 L (6.0-8.3) gm/dl Albumin 2.5 L (3.4-5.0) gm/dl Globulin 3.0 (2.5-4.0) gm/dl Albumin/Globulin Ratio 0.8 L (0.9-2) Procalcitonin 0.55 H (0-0.5) ng/ml
[2022-04-17] MEDS: MELATONIN 3 MG TAB PO SCH (20:39)
[2022-04-18] MEDS: MEROPENEM 500 MG in SYRINGE 0 ML IV SCH ×4 (02:10→21:47)
[2022-04-18 08:01] LABS: Hemoglobin 8.7 g/dl (14.0-18.0); Mean Corpuscular Hemoglobin 30.1 pg (25.0-34.0); Mean Corpuscular Hgb Conc 34.8 g/dL (32.0-36.0); Mean Corpuscular Volume 86.5 fL (80.0-100.0); Mean Platelet Volume 9.7 fL (9.4-12.4); Platelet Count 19 K/uL (130-400); RDW Coefficient of Variation 14.7 % (11.5-14.5); RDW Standard Deviation 45.6 fL (36.4-46.3); Red Blood Count 2.89 M/uL (4.63-6.08); White Blood Count 0.72 K/ul (4.8-10.8)
--- NOTE | 2022-04-18 08:11 | Hospitalist Progress Note ---
Date of Service April 18, 2022 Assessment & Plan (1) Sepsis: Plan: Presents with sepsis with neutropenic fever, hypotension. Prior admit for sepsis w/ sacral ulceration as suspected source (looks good currently, not reddened per nursing) With ESBL E. coli septicemia and UTI as the source Viral respiratory bio fire panel and chest x-ray negative He was having lower abdominal pain with urination prior to admission No port in place Ur cx and BCxs with ESBL E. coli Repeat blood cultures 04/12-NGTD, 04/14-NGTD Blood pressures responded to crystalloid fluid which is since been discontinued Initially was started on ertapenem and vancomycin empirically Vancomycin was discontinued after 48 hours Continued to spike fevers on 04/13, but suspected secondary to ongoing treatment of pyelonephritis and bacteremia Appreciate infectious disease consultation at that time recommendation to remain on ertapenem On 04/14, ongoing high spiking fevers and development of some lower abdominal pain-CT abdomen/pelvis obtained which shows sigmoid diverticulitis but no abscess. With prominent retroperitoneal lymphadenopathy 11 mm similar to previous. It is possible that the fevers could be secondary to the ongoing AML itself, but potentially could be a failure of treatment with ertapenem which would not cover for Pseudomonas. He was off of his levofloxacin for a few days this admission. Perhaps he has a separate intra-abdominal pseudomonal infection with the diverticulitis that is resistant to fluoroquinolones in addition to the ESBL E. coli bacteremia and UTI * Discontinued ertapenem and started Meropenem on 04/14 * Meropenem 1000 mg IV every 8 hours as per discussion with infectious disease on 04/14-this will cover for both the ESBL E. coli bacteremia, UTI, as well as a Pseudomonas intra-abdominal infection/diverticulitis as well as give coverage for anaerobes and Enterococcus. Home Levaquin placed on hold Dapto added 04/16 given continued fevers, however repeat blood cultures have remained negative. Procal trending down on repeat Given no further cultures with any evidence for Dapto, will discontinue as per discussion with ID, Dr Velásquez Discussed with ID provider and other hospitalist and possible patient had divert iculitis with abscess/phlegmon/etc which was improving prior to obtained imaging and given patient has completed ~7 days of coverage with Carbepenem with improvement (no fever over last 24 hours -- last documented temp 38.4 midnight 04/16), recommendations for Bactrim 1DS BID + Flagyl 500mg BID to complete 14 day course (through 04/24) for tx diverticulitis and ESBL Ecoli bacteremia (ESBL Ecoli is R to FLQs) and should RESTART LEVAQUIN ppx on d/c when meropenem is stopped Continues Voriconazole, acyclovir F/u pulm regarding nodules, again already on voriconazole Repeat blood cultures 1 week post completion of abx if remains negative Planning for d/c on PO abx tomorrow, monitor platelets/further fevers Dr Burgos to stop by to see patient to discuss ref to [facility] and follow up plans -- see note once done, has not seen patient yet when evaluated Monitor labs in AM (2) Acute hypotension: Plan: Now resolved, secondary to sepsis (3) Acute diverticulitis: Plan: As above fairly asymptomatic at this point claudia reg diet, normal BM the other day (4) AML (acute myeloblastic leukemia): Plan: currently on chemo with decitabine, no longer on venetoclax due to low blood counts and previous infection. Prior ASA and statin discontinued when started chemotherapy -Appreciate Heme/Onc consult-plan to treat infection and then resume chemo when ANC> 500 however given current performance status, suspect not likely for stem cell tx candidate and would consider pursuing hospice at that point if AML not responding to treatment. BMBx 03/16 with 80% bone marrow involvement. -Referral has been made to [facility] for stem cell transplant evaluation -continue prophylactic voriconazole,acyclovir, but now holding home levofloxacin while on meropenem -continue allopurinol Hgb stable, 8.5--> 8.7 (repeated lab draws as well), no reported bleeding 1u platelets 1/2, --> 19k currently monitor in AM (5) Pancytopenia: Plan: Antineoplastic induced pancytopenia as well as secondary to AML -last chemo one week prior to admission with decitabine hgb down to 7.0--> transfused 1 unit PRBCs on 04/12 Hemoglobin remained low at 7.3 on 04/13-received 1 more unit PRBCs Hemoglobin increased to 10.1 (?if from lab error --> is 8.9 on AM labs but was 8.7 day prior to being 10.1) Platelets low on admission was given 1 unit of platelets and had improvement up to 17 Platelets then back down again on 04/14 to 9-transfused platelets 19k on 04/15--> 16k (small amount blood torn cuticle on hand) 11k on 04/17, addition unit platelets --> 19k on am labs Had fever during first PRBC transfusion but do not suspect from transfusion. Transfusion reaction labs all negative -As per platelets-oncology recommends keep above 10 in hospital and above 15 if going home soon - no active bleeding at this time continue Neutropenic precautions Follow CBC-Hopeful for bone marrow recovery over the next few days Platelets tomorrow prior to dc, can continue transfusions outpatient as needed with Dr Burgos. To see today (6) Generalized weakness: Plan: Secondary to sepsis and infection PT/OT consults placed (7) Hyponatremia: Plan: Sodium mildly low at 135,was normal -- again low 135 today. Continue salt tablets 1 g p.o. twice daily, monitor repeat/urine studies/cut back oral supplementation if needed Follow BMP (8) Elevated troponin: Plan: Elevated troponin-peaked at 1500, no CP, no ischemic changes on ECG. Hx CABG This is myocardial demand ischemia in setting of sepsis and mod-severe on last ECHO 01/2022 with underlying CAD/CABG (9) Hypertension: Plan: Continue home metoprolol with hold parameters Blood pressures are normal 121/70 (10) Aortic stenosis: Plan: Moderate to severe with LVEF 60 to 65% Follow volume status, clinically volume depleted on admission and now euvolemic -Follow with cardiology as an outpt (11) Arteriosclerotic coronary artery disease: Plan: With a history of CABG Discontinued aspirin when he started chemotherapy due to thrombocytopenia Discontinued statin during recent admission for rhabdomyolysis Continue Toprol-XL (12) Pulmonary nodules: Plan: Previously symptomatic, at risk for opportunistic infections Declined invasive procedures at last pulmonary follow-up, especially given low counts and high risk -Chest CT on 03/27 ordered by pulmonology was stable from previous in 01/2022- had dense bilateral centrilobular and perifissural micronodules in conjunction with calcified mediastinal and hilar lymph nodes suspicious for sarcoidosis Follow-up as an outpatient Plan DVT prophylaxis-no chemical or mechanical due to risk of bleeding and bruising D/c Dapto, continue meropenem Plans to d/c on Bactrim/Flagyl BID tomorrow, should resume levaquin once off meropenem Monitor platelets in AM/transfuse if needed Oncology to follow up on referrals -- CM navigator called to confirm sent to [facility] this morning. Will need update for [facility] referral, awaiting call back Repeat bcx 1 week Hopeful d/c tomorrow on PO abx Admission and Anticipated Discharge Date Admission Date: April 10, 2022 Supervising Physician Co-Signing Physician Notes The patient was not seen by me. Case reviewed with SHIRA Perales. Agree with assessment and plan Subjective Evaluated this morning. No further fevers. No bleeding reported. Dr Burgos to see this afternoon. Discussed confirmed with case management that ref sent to [facility] by [facility] this morning. [facility] Will have IV team place IV for continued abx. Discussed ID recommendations to stop the Daptomycin, he is skeptical of stopping these given feeling better/no further fevers. Will discuss with provider for further thoughts but also give CM rx for abx to anticipate dc tomorrow. Plus/minus additional platelets tomorrow if needed. Discussed with additional provider and ID about possible worse diverticulitis/possible abscess initially not seen and resolving by time imaging obtained, and consideration for Bactrim/Flagyl PO at d/c. After discussion/reasons why, he is agreeable to this at d/c. Will stop the Dapto further. Relayed information for case management hoping no IV abx at d/c and plan for d/c tomorrow if remains stable. Review of Systems Review of Systems: All systems reviewed & are unremarkable except as noted in HPI & below Physical Exam Constitutional: WD/WN, vitals as above Eyes: + anicteric sclerae ENMT: mm moist, Neck: trachea midline, no thyromegaly Respiratory: normal respiratory effort, lungs clear to auscultation Cardiovascular: Rate/Rhythm: regular rate and regular rhythm Heart Sounds: + murmur (2/6 JENNIFER at [facility]) Gastrointestinal (Abdomen): normal bowel sounds, soft, nontender, no hepatosplenomegaly Musculoskeletal: Extremities: extremities normal to inspection; no cyanosis and no clubbing Skin: no rashes, warm and dry + lesion (Small linear blister in the webspace between thumb and index finger on righ) Neurologic: moves all extremities and awake; no focal motor deficits Psychiatric: Orientation: alert, oriented x 3 and cooperative improved mood Lymphatic: no lymphedema Results & Data Results & Data ([facility]) Vital Signs (Past 12 Hours) Vital Signs Temp Pulse Pulse Resp BP Pulse Ox O2 Del Method 04/18/22 03:25 37 C 87 16 127/71 93 Room Air 04/18/22 01:05 86 04/17/22 23:30 37.1 C 85 16 118/67 94 Room Air 04/17/22 20:56 37.3 C Laboratory Results 04/18/22 04/18/22 Range/Units 07:44 07:44 WBC 0.72 L* (4.8-10.8) K/ul RBC 2.89 L (4.63-6.08) M/uL Hgb 8.7 L (14.0-18.0) g/dl Hct 25.0 L (40.1-51.0) % MCV 86.5 (80.0-100.0) fL MCH 30.1 (25.0-34.0) pg MCHC 34.8 (32.0-36.0) g/dL RDW Std Deviation 45.6 (36.4-46.3) fL RDW Coeff of Marty 14.7 H (11.5-14.5) % Plt Count 19 L* D (130-400) K/uL MPV 9.7 (9.4-12.4) fL Neutrophils % (Manual) 3 % Lymphocytes % (Manual) 73 % Metamyelocytes % (Man) 2 % Blast Cells % (Manual) 22 % Neutrophils # (Manual) 0.02 L (1.4-6.5) K/uL Total Absolute Neuts 0.02 L* (1.4-6.5) K/uL Lymphocytes # (Manual) 0.53 L (1.2-3.4) K/uL Total Abs Lymphocytes 0.53 L (1.2-3.4) K/uL Metamyelocytes # (Man) 0.01 H (0-0) K/uL Blast Cells # (Man) 0.16 H (0-0) K/uL Tear Drop Cells 1+ Acanthocytes (Spur) 2+ Sodium 135 L (136-145) mmol/L Potassium 3.9 (3.5-5.1) mmol/L Chloride 104 (98-107) mmol/L Carbon Dioxide 26 (21-32) mmol/L Anion Gap 5 (3-11) BUN 10 (6-23) mg/dl Creatinine 0.41 L (0.6-1.4) mg/dl Est Cr Clr Drug Dosing 143.7 ml/min Est GFR ( Amer) 130.5 ml/min Est GFR (Non-Af Amer) 112.6 ml/min BUN/Creatinine Ratio 24.4 H (10-20) Glucose 95 (70-99(Fasting)) mg/dl Calcium 7.8 L (8.5-10.1) mg/dl Magnesium 2.2 (1.7-2.4) mg/dl PG Care Time/CCT Total # of Minutes Spent Total Time Spent with Patient: Total time spent is greater than 50% in coordination of care (as documented) at patient's floor/unit and/or counseling patient: Coding Level of Care Code 90810 SUB INP/OBS CARE 3/50MIN Diagnoses Sepsis A41.9 Acute hypotension I95.9 Acute diverticulitis K57.92 AML (acute myeloblastic leukemia) C92.00 Leukemia Active/Remission status: without remission Pancytopenia D61.818 Generalized weakness R53.1 Hyponatremia E87.1 Elevated troponin R77.8 Hypertension I10 Aortic stenosis I35.0 Arteriosclerotic coronary artery disease I25.10 Pulmonary nodules R91.8 (1) AML (acute myeloblastic leukemia) Leukemia Active/Remission status: without remission Qualified Code(s): C92.00 - Acute myeloblastic leukemia, not having achieved remission
[2022-04-18 08:15] LABS: BUN Creatinine Ratio 24.4 (10-20); Calcium 7.8 mg/dl (8.5-10.1); Creatinine Clr Calc Pharmacy 143.7 ml/min; Est GFR (African American) 130.5 ml/min; Est GFR (Non-African American) 112.6 ml/min; Magnesium 2.2 mg/dl (1.7-2.4); Potassium 3.9 mmol/L (3.5-5.1)
[2022-04-18 08:41] LABS: ALC (manual) 0.53 K/uL (1.2-3.4); ANC (manual) 0.02 K/uL (1.4-6.5); Acanthocytes 2+; Blast # (manual) 0.16 K/uL (0-0); Blast Cells % (manual) 22 %; Lymphocytes # (manual) 0.53 K/uL (1.2-3.4); Lymphocytes % (manual) 73 %; Metamyelocytes # (manual) 0.01 K/uL (0-0); Metamyelocytes % (manual) 2 %; Neutrophils # (manual) 0.02 K/uL (1.4-6.5); Neutrophils % (manual) 3 %; Tear Drop Cells 1+
--- NOTE | 2022-04-18 08:49 | Infectious Disease Progress Nt ---
Date of Service April 18, 2022 Assessment & Plan (1) Sepsis: (2) Febrile neutropenia: (3) AML (acute myeloblastic leukemia): (4) Pancytopenia: (5) Acute diverticulitis: (6) Palpable mass of neck: (7) Pulmonary nodules: (8) Bacteremia: Plan 76 yo M with a history of AML (dx 11/2021) s/p 3 cycles of decitabine (last received 03/27-03/31, with residual disease on recent BMBx--80%), recently started on venetoclax due to poor performance, on acyclovir, voriconazole, and levofloxacin ppx, CAD s/p CABG, multiple recent hospitalizations since 11/2021 for pancytopenia, CONS bacteremia with sacral wound, syncope, aortic stenosis, recent neck mass, chronic pulmonary nodules who presented on 04/10 with increased frequency of fevers (on top of baseline intermittent fevers and night sweats since his AML diagnosis), now admitted with ESBL E coli bacteremia and UTI. Noted to be neutropenic on admission with ANC 30. Hospital course has been complicated by persistent neutropenic fevers, and acute diverticulitis. Source of ESBL E coli bacteremia is likely UTI vs diverticulitis. He reported increased urinary urgency/frequency prior to admission. He did not initially complain of abd pain, but he underwent CT A/P on 04/14 due to ongoing high fevers and development of some lower abdominal pain, which showed findings of diverticulitis without abscess or perforation. His sacral wound is healed, no longer has a neck mass, no kapoor, no hardware, no central lines. Abd pain is resolved. Daptomycin was added on 04/16 due to persistent fevers. Repeat BCx from 04/14, 04/16 remain NGTD. Last febrile 04/17 early AM. Antimicrobial course: Daptomycin 04/16 - present Meropenem 04/14 - present Voriconazole 04/10 - present Acyclovir 04/10 - present Levofloxacin 04/14 Ertapenem 04/11 - 04/14 Vancomycin 04/10 - 04/13 Cefepime 04/11 Problems: #ESBL E coli UTI and bacteremia #Diverticulitis: seen on 04/14 CT. No abscess or perforation seen. #Persistent fevers: last fever 04/17 #AML #Chronic pulmonary nodules: diffuse micronodules with calcified mediastinal/hilar lymph nodes suspicious for sarcoidosis on 03/27 CT. Also consider infectious/inflammatory pneumonitis. Followed by pulcontreras, last seen 04/04--pt deferring bronch/BAL, biopsy at this time in light of his low counts. Follow-up CT in 3 months #R neck mass: 2.8 cm complex mixed echogenicity collection seen on 02/23 US--differential includes abscess, hematoma, or abnormal enlarged lymph node which could be suppurative or necrotic. Treated with empiric Augmentin with improvement. Pt reports mass is resolved Recommendations: -Would recommend stopping daptomycin--do not think he needs MRSA coverage since his 04/14 and 04/16 BCx remain NGTD, and the only organism isolated so far is E coli -Can continue meropenem while inpatient -He has completed ~7 days of a carbapenem, with improvement. Therefore, on discharge, anticipate can transition him to TMP/SMX 1 DS tab PO q12h and metronidazole 500 mg PO q12h to complete a 14 day course (through 04/24/22) for treatment of diverticulitis and ESBL E coli bacteremia (Noting that the ESBL E coli is R to fluoroquinolones) -Should restart levofloxacin ppx on discharge when meropenem is stopped (QTc 463 on 04/10/22) -Continue AML prophylaxis with voriconazole and acyclovir -Continue follow-up with pulmonology regarding his pulmonary nodules--could represent infectious/inflammatory process contributing to persistent fevers. Reassuringly, he is already on voriconazole which would treat a fungal process Admission and Anticipated Discharge Date Admission Date: April 10, 2022 Subjective Subsequent visit was provided via telemedicine using two-way real-time interactive telecommunication between the patient and the telemedicine provider. For the duration of the visit, the provider was performing the assessment from a different facility than the patient. This includesuse of bluetooth stethoscope forauscultationperformed by the telepresenter that the telemedicine provider can hear if described in the physical exam. Telecommunications Technician contact information: Please call [facility] . (Phone Number For Physician Use Only) After establishing a telemedicine visit, patient was: Patient was verified with two unique identifiers, Patient/authorized rep acknowledged consent and understanding and Gave permission to continue telehealth session Subsequent Time Spent w Inpatient: 25 minutes Diverticulitis noted on CT on 04/14. Surgery consulted, recommended conservative management. Ertapenem changed to meropenem Daptomycin added on 04/16 in the setting of continued fevers 04/12 BCx finalized as NG 04/14 and 04/16 BCx NGTD Continues with neutropenia: ANC 20 today Afebrile since 04/17 at 12:40am Pt denies abdominal pain, reports it has resolved. Had a normal BM today States the R neck mass has resolved Was [place] the [place], has never traveled outside of the country but has traveled within the [place]. Lives with his and dog. Has chickens at home. 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 Hobby is gardening when he is able. Denies recent travel. No known exposures to TB. Review of System A complete ROS was performed and is negative except as mentioned in the HPI. Physical Exam Physical Exam: GEN: elderly man laying in bed in NAD. HEENT: Normocephalic, atraumatic. LAD: No palpable masses in R neck RESP: No increased work of breathing ABD: BS+. Soft, non-distended. Non-tender to palpation. EXT: No LE edema. Warm, well-perfused. SKIN: L forearm abrasion NEURO: Alert and oriented. Answers all questions appropriately. Speech not slurred. PSYCH: Normal mood, affect appropriate. Results & Data ([facility]) Vital Signs (Past 12 Hours) Vital Signs Temp Pulse Pulse Resp BP BP Pulse Ox 04/18/22 08:00 37 C 89 18 118/72 92 04/18/22 03:25 37 C 87 16 127/71 93 04/18/22 01:05 86 04/17/22 23:30 37.1 C 85 16 118/67 94 04/17/22 20:56 37.3 C O2 Del Method 04/18/22 08:00 Room Air 04/18/22 03:25 Room Air 04/18/22 01:05 04/17/22 23:30 Room Air 04/17/22 20:56 Laboratory Results Short CBC 04/18/22 Range/Units 07:44 WBC 0.72 L* (4.8-10.8) K/ul Hgb 8.7 L (14.0-18.0) g/dl Hct 25.0 L (40.1-51.0) % Plt Count 19 L* D (130-400) K/uL BMP 04/18/22 07:44 Sodium 135 L Potassium 3.9 Chloride 104 Carbon Dioxide 26 BUN 10 Creatinine 0.41 L Glucose 95 Calcium 7.8 L Diagnostic Findings Microbiology 04/16 BCx x2: NGTD 04/14 BCx x2: NGTD 04/12 BCx x2: NG 04/10 UCx: ESBL E coli ESBL E col RX M.I.C. --- --------- Amox/Clav S <=8/4 Ampicillin R >16 Amp/Sul S <=8/4 Cefazolin R >16 Cefepime R >16 Cefotaxime R >16 Ceftriaxone R >2 Ciprofloxacin R >2 Ertapenem S <=0.5 Gentamicin S <=4 Levofloxacin R >4 Meropenem S <=1 Nitrofurantoin S <=32 Tobramycin S <=4 Trimeth/Sulfa S <=2/38 Pip/Tazo S <=16 04/10 BCx x2: ESBL E coli in / bottles ESBL E col RX M.I.C. --- --------- Amox/Clav S <=8/4 Ampicillin R >16 Amp/Sul S <=8/4 Cefazolin R >16 Cefepime R >16 Cefotaxime R >16 Ceftriaxone R >2 Ciprofloxacin R >2 Ertapenem S <=0.5 Gentamicin S <=4 Levofloxacin R >4 Meropenem S <=1 Tobramycin S <=4 Trimeth/Sulfa S <=2/38 Pip/Tazo S <=16 04/10 RVP: negative 01/25 Nasal MRSA Screen: negative Medications Administered Current Inpatient Medications Acetaminophen (Acetaminophen 500 Mg Tab) 1,000 mg PO Q8H PRN PRN Reason: Pain or Fever Stop: 05/10/22 20:41 Last Admin: 04/17/22 00:42 Dose: 1,000 mg Acyclovir (Acyclovir 400 Mg Tab) 400 mg PO BID [facility] Stop: 05/10/22 20:59 Last Admin: 04/17/22 20:46 Dose: 400 mg Allopurinol (Allopurinol 300 Mg Tab) 300 mg PO QAM [facility] Stop: 05/11/22 08:59 Last Admin: 04/17/22 09:38 Dose: 300 mg Ascorbic Acid (Ascorbic Acid 500 Mg Tab) 500 mg PO BID [facility] Stop: 05/10/22 20:59 Last Admin: 04/17/22 20:46 Dose: 500 mg Cyanocobalamin (Cyanocobalamin (B-12) 500 Mcg Tablet) 1,000 mcg PO QAM [facility] Stop: 05/11/22 08:59 Last Admin: 04/17/22 09:39 Dose: 1,000 mcg Meropenem 500 mg/ Syringe 10 mls @ 2 mls/min IV Q6H [facility]; Protocol Stop: 04/28/22 13:59 Last Admin: 04/18/22 02:10 Dose: 2 mls/min Daptomycin 450 mg/ Syringe 9 mls @ 4.5 mls/min IV DAILY@1100 [facility]; Protocol Stop: 05/01/22 10:59 Last Admin: 04/17/22 11:25 Dose: 4.5 mls/min Melatonin (Melatonin 3 Mg Tab) 6 mg PO HS [facility] Stop: 05/10/22 20:59 Last Admin: 04/17/22 20:39 Dose: 6 mg Metoprolol Succinate (Metoprolol Succ 50mg Ext Rel Tab) 50 mg PO [facility] Stop: 05/11/22 08:59 Last Admin: 04/17/22 09:38 Dose: 50 mg Nitroglycerin (Nitroglycerin Sl 0.4 Mg/Tab Tab) 0.4 mg SL Q5M PRN PRN Reason: Chest Pain Stop: 05/10/22 20:41 Ondansetron HCl (Ondansetron 4 Mg Od Tab) 4 mg PO Q6H PRN PRN Reason: Nausea Stop: 05/10/22 20:41 Polyethylene Glycol (Polyethylene (Miralax) 17 Gm Pack) 17 gm PO DAILY PRN PRN Reason: Constipation Stop: 05/10/22 20:41 Sodium Chloride (Sodium Chloride 1 Gm Tablet) 1 gm PO BID [facility] Stop: 05/10/22 20:59 Last Admin: 04/17/22 20:45 Dose: 1 gm Voriconazole (Voriconazole 200 Mg Tablet) 200 mg PO BID [facility] Stop: 05/10/22 20:59 Last Admin: 04/17/22 20:45 Dose: 200 mg
[2022-04-18] MEDS: ASCORBIC ACID 500 MG TAB PO SCH ×2 (09:23→21:48)
[2022-04-18] MEDS: METOPROLOL SUCC 50MG EXT REL TAB PO SCH (09:23)
[2022-04-18] MEDS: allopurinoL 300 MG TAB PO SCH (09:23)
[2022-04-18] MEDS: CYANOCOBALAMIN (B-12) 500 MCG TABLET PO SCH (09:23)
[2022-04-18] MEDS: VORICONAZOLE 200 MG TABLET PO SCH ×2 (09:25→21:48)
[2022-04-18] MEDS: SODIUM CHLORIDE 1 GM TABLET PO SCH ×2 (09:25→21:48)
[2022-04-18] MEDS: ACYCLOVIR 400 MG TAB PO SCH ×2 (09:26→21:48)
[2022-04-18] MEDS: DAPTOmycin 450 MG in SYRINGE 0 ML IV SCH (11:50)
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
[2022-04-18] MEDS: MELATONIN 3 MG TAB PO SCH (21:48)
[2022-04-18] MEDS: ACETAMINOPHEN 500 MG TAB PO PRN (21:48)
[2022-04-19] MEDS: MEROPENEM 500 MG in SYRINGE 0 ML IV SCH ×4 (02:28→21:34)
[2022-04-19 07:23] LABS: Hematocrit (blood only) 27.4 % (40.1-51.0); Hemoglobin 9.3 g/dl (14.0-18.0); Mean Corpuscular Hemoglobin 29.8 pg (25.0-34.0); Mean Corpuscular Hgb Conc 33.9 g/dL (32.0-36.0); Mean Corpuscular Volume 87.8 fL (80.0-100.0); Nucleated RBC # (auto) 0.02 K/uL (0-0); Nucleated RBC % (auto) 1.9 %; Platelet Count 13 K/uL (130-400); RDW Coefficient of Variation 14.7 % (11.5-14.5); RDW Standard Deviation 46.9 fL (36.4-46.3); Red Blood Count 3.12 M/uL (4.63-6.08); White Blood Count 1.08 K/ul (4.8-10.8)
[2022-04-19 07:41] LABS: Albumin Globulin Ratio 0.9 (0.9-2); Albumin Level 2.9 gm/dl (3.4-5.0); Bilirubin,Total 0.6 mg/dl (0.2-1.0); Calcium 8.3 mg/dl (8.5-10.1); Creatinine Clr Calc Pharmacy 117.8 ml/min; Est GFR (African American) 120.3 ml/min; Est GFR (Non-African American) 103.8 ml/min; Globulin 3.4 gm/dl (2.5-4.0); Magnesium 2.3 mg/dl (1.7-2.4); Total Protein 6.3 gm/dl (6.0-8.3)
[2022-04-19 07:48] LABS: ALC (manual) 0.76 K/uL (1.2-3.4); ANC (manual) 0.01 K/uL (1.4-6.5); Blast # (manual) 0.29 K/uL (0-0); Blast Cells % (manual) 27 %; Lymphocytes # (manual) 0.76 K/uL (1.2-3.4); Lymphocytes % (manual) 70 %; Metamyelocytes # (manual) 0.01 K/uL (0-0); Metamyelocytes % (manual) 1 %; Monocytes # (manual) 0.01 K/uL (0.24-0.82); Monocytes % (manual) 1 %; Neutrophils # (manual) 0.01 K/uL (1.4-6.5); Neutrophils % (manual) 1 %
[2022-04-19] MEDS: ACETAMINOPHEN 500 MG TAB PO PRN ×2 (07:48→17:58)
[2022-04-19] MEDS: CYANOCOBALAMIN (B-12) 500 MCG TABLET PO SCH (07:49)
[2022-04-19] MEDS: METOPROLOL SUCC 50MG EXT REL TAB PO SCH (07:49)
[2022-04-19] MEDS: allopurinoL 300 MG TAB PO SCH (07:49)
[2022-04-19] MEDS: ASCORBIC ACID 500 MG TAB PO SCH ×2 (07:50→21:46)
[2022-04-19] MEDS: SODIUM CHLORIDE 1 GM TABLET PO SCH ×2 (07:50→21:46)
[2022-04-19] MEDS: VORICONAZOLE 200 MG TABLET PO SCH ×2 (07:50→21:46)
[2022-04-19] MEDS: ACYCLOVIR 400 MG TAB PO SCH ×2 (07:50→21:46)
--- NOTE | 2022-04-19 16:08 | Hospitalist Progress Note ---
Date of Service April 19, 2022 Assessment & Plan (1) Sepsis: Plan: Presents with sepsis with neutropenic fever, hypotension. Prior admit for sepsis w/ sacral ulceration as suspected source (looks good currently, not reddened per nursing) With ESBL E. coli septicemia and UTI as the source Viral respiratory bio fire panel and chest x-ray negative He was having lower abdominal pain with urination prior to admission No port in place Ur cx and BCxs with ESBL E. coli Repeat blood cultures 04/12-NGTD, 04/14-NGTD Patient spiked fevers overnight. He did respond to Tylenol. Repeat blood cultures and urine cultures were obtained. Repeat procalcitonin ordered. Clinically, the patient looks washed out on reassessment this morning, but on reassessment in the afternoon, he does clinically appear better. While the patient and admit that he has been having waxing and waning fevers since November, the is concerned that taking the patient home right now would be premature. I did speak with infectious disease provider. She does not recomme nd changing antibiotics at this point and is in agreement with keeping him for another 24 hours to monitor fever curve. In the event that he has persistent fevers, she does recommend considering repeat imaging, however she agrees that as the patient is clinically improving, this might indicate that his fevers are coming from his leukemia primarily. That being said, he is covered for multiple sources of infection and is with hopes that his symptoms improve with management. Spoke with Dr. Banks in the morning regarding his platelet count. Will hold on transfusion for now per her recommendation. Case management will review possible increasing resources for home. (2) Acute hypotension: Plan: Now resolved, secondary to sepsis (3) Acute diverticulitis: Plan: As above fairly asymptomatic at this point claudia reg diet, normal BM the other day (4) AML (acute myeloblastic leukemia): Plan: currently on chemo with decitabine, no longer on venetoclax due to low blood counts and previous infection. Prior ASA and statin discontinued when started chemotherapy -Appreciate Heme/Onc consult-plan to treat infection and then resume chemo when ANC> 500 however given current performance status, suspect not likely for stem cell tx candidate and would consider pursuing hospice at that point if AML not responding to treatment. BMBx 03/16 with 80% bone marrow involvement. -Referral has been made to [facility] for stem cell transplant evaluation -continue prophylactic voriconazole,acyclovir, but now holding home levofloxacin while on meropenem -continue allopurinol monitor in AM (5) Pancytopenia: Plan: Antineoplastic induced pancytopenia as well as secondary to AML -last chemo one week prior to admission with decitabine hgb down to 7.0--> transfused 1 unit PRBCs on 04/12 Hemoglobin remained low at 7.3 on 04/13-received 1 more unit PRBCs Hemoglobin increased to 10.1 (?if from lab error --> is 8.9 on AM labs but was 8.7 day prior to being 10.1) Platelets low on admission was given 1 unit of platelets and had improvement up to 17 Platelets then back down again on 04/14 to 9-transfused platelets 19k on 04/15--> 16k (small amount blood torn cuticle on hand) 11k on 04/17, addition unit platelets --> 19k on am labs Had fever during first PRBC transfusion but do not suspect from transfusion. Transfusion reaction labs all negative -As per platelets-oncology recommends keep above 10 in hospital and above 15 if going home soon - no active bleeding at this time continue Neutropenic precautions Follow CBC-Hopeful for bone marrow recovery over the next few days Platelets tomorrow prior to dc, can continue transfusions outpatient as needed with Dr Burgos. To see today (6) Generalized weakness: Plan: Secondary to sepsis and infection PT/OT consults placed (7) Hyponatremia: Plan: Sodium mildly low at 135,was normal -- again low 135 today. Continue salt tablets 1 g p.o. twice daily, monitor repeat/urine studies/cut back oral supplementation if needed Follow BMP (8) Elevated troponin: Plan: Elevated troponin-peaked at 1500, no CP, no ischemic changes on ECG. Hx CABG This is myocardial demand ischemia in setting of sepsis and mod-severe on last ECHO 01/2022 with underlying CAD/CABG (9) Hypertension: Plan: Continue home metoprolol with hold parameters Blood pressures are normal 121/70 (10) Aortic stenosis: Plan: Moderate to severe with LVEF 60 to 65% Follow volume status, clinically volume depleted on admission and now euvolemic -Follow with cardiology as an outpt (11) Arteriosclerotic coronary artery disease: Plan: With a history of CABG Discontinued aspirin when he started chemotherapy due to thrombocytopenia Discontinued statin during recent admission for rhabdomyolysis Continue Toprol-XL (12) Pulmonary nodules: Plan: Previously symptomatic, at risk for opportunistic infections Declined invasive procedures at last pulmonary follow-up, especially given low counts and high risk -Chest CT on 03/27 ordered by pulmonology was stable from previous in 01/2022- had dense bilateral centrilobular and perifissural micronodules in conjunction with calcified mediastinal and hilar lymph nodes suspicious for sarcoidosis Follow-up as an outpatient Plan DVT prophylaxis-no chemical or mechanical due to risk of bleeding and bruising Continue meropenem for now. Hopefully the patient does well overnight and is without fevers and can be discharged to home on: Plans to d/c on Bactrim/Flagyl BID tomorrow, should resume levaquin once off meropenem Monitor platelets in AM/transfuse if needed Hopeful d/c tomorrow on PO abx Admission and Anticipated Discharge Date Admission Date: April 10, 2022 Subjective Patient was seen and evaluated bedside. On review of overnight nursing notes and vital signs, the patient had been fevering throughout the night. At my time of assessment, the patient had recently defervesced and reports feeling much better at this time despite being very sweaty. States he feels well when he does not have a fever, but feels terrible when his fevers present. I did reassess the patient this afternoon with his present at bedside. She is concerned that his fevers have returned. She is not keen on him being discharged at this current state. She is looking to see if she can get some increasing help at home. I did speak with case management. Reviewed the case with infectious disease. We will continue with current IV antibiotic treatment. Otherwise, the patient has had no fevers throughout the remainder of the day and has been feeling well otherwise Review of Systems Review of Systems: A complete 10 point review of systems was reviewed with the patient with pertinent positives and negatives as per history of present illness. All else were negative. Physical Exam Physical Exam: VITAL SIGNS - Vital signs and nursing notes were reviewed. GENERAL - 76-year-old male appearing his stated age who is in no acute distress. Communicates well with provider and answers questions appropriately. SKIN - Without rashes. HEAD - NC/AT. EYES - PERRL with EOMI bilaterally. Sclera anicteric. NECK - Neck with FROM. Supple to palpation. LUNGS - Chest wall symmetric without accessory muscle use, intercostals retractions, or central cyanosis. Normal vesicular breath sounds CTA B/L. No wheezes, rales, or rhonchi appreciated. CARDIAC - RRR with S1/S2. No murmur, rubs, or gallops appreciated. ABDOMEN - Abdominal contour flat without pulsations or visible masses. BS normoactive all four quadrants. No tenderness, palpable masses, hepatosplenomegaly, or ascites noted. EXTREMITIES - No clubbing or peripheral cyanosis. No pretibial edema present. +3/5 radial and dorsalis pedis pulses palpated throughout. +4/5 strength noted in UE/LE bilaterally. NEUROLOGIC - Cranial nerves II through XII grossly intact. PSYCH - A&Ox3 and cooperates fully with examiner. Pt is very pleasant and interacts well with examiner. Results & Data Results & Data ([facility]) Vital Signs (Past 12 Hours) Vital Signs Temp Pulse Pulse Resp BP Pulse Ox O2 Del Method 04/19/22 15:48 36.7 C 82 18 105/64 96 Room Air 04/19/22 15:03 81 04/19/22 11:21 36.4 C L 117 H 18 97/58 L 95 Room Air 04/19/22 07:51 38.8 C H 126 H 18 113/69 92 Room Air 04/19/22 07:16 117 H 04/19/22 04:48 37.0 C (1) AML (acute myeloblastic leukemia) Leukemia Active/Remission status: without remission Qualified Code(s): C92.00 - Acute myeloblastic leukemia, not having achieved remission
[2022-04-19] MEDS ORDERED: SODIUM CHLORIDE 0.9% 1000ML 1,000 ML IV SCH (18:15)
[2022-04-19] MEDS: DAPTOmycin 450 MG in SYRINGE 0 ML IV SCH (19:38)
[2022-04-19] MEDS: MELATONIN 3 MG TAB PO SCH (21:46)
[2022-04-19 23:02] LABS: Appearance Urine Clear (Clear); Bilirubin Urine Negative (Negative); Blood Urine Negative (Negative); Color Urine Yellow; Glucose Urine UA Negative (Negative); Ketones Urine Negative (Negative); Leukocyte Esterase Urine Negative (Negative); Nitrite Urine Negative (Negative); Protein Urine Negative (Negative); Specific Gravity Urine 1.005 (1.000-1.030); Urobilinogen Urine Negative (Negative)
[2022-04-20] MEDS: MEROPENEM 500 MG in SYRINGE 0 ML IV SCH ×4 (02:31→21:26)
[2022-04-20] MEDS: SODIUM CHLORIDE 1 GM TABLET PO SCH ×2 (09:01→21:27)
[2022-04-20] MEDS: METOPROLOL SUCC 50MG EXT REL TAB PO SCH (09:01)
[2022-04-20] MEDS: allopurinoL 300 MG TAB PO SCH (09:01)
[2022-04-20] MEDS: ACYCLOVIR 400 MG TAB PO SCH ×2 (09:01→21:27)
[2022-04-20] MEDS: CYANOCOBALAMIN (B-12) 500 MCG TABLET PO SCH (09:01)
[2022-04-20] MEDS: ASCORBIC ACID 500 MG TAB PO SCH ×2 (09:01→21:26)
[2022-04-20] MEDS: VORICONAZOLE 200 MG TABLET PO SCH ×2 (09:01→21:27)
[2022-04-20] MEDS: ACETAMINOPHEN 500 MG TAB PO PRN ×2 (09:07→18:17)
--- NOTE | 2022-04-20 10:04 | Hospitalist Progress Note ---
Date of Service April 20, 2022 Assessment & Plan (1) Sepsis: Plan: Presents with sepsis from ESBL ecoli uti source, with neutropenic fever, hypotension. Prior admit for sepsis w/ sacral ulceration as suspected source (looks good currently, not reddened per nursing) With ESBL E. coli septicemia and UTI as the source daptomycin plus meropenem Ur cx and BCxs with ESBL E. coli Repeat blood cultures 04/12-NGTD, 04/14-NGTD Oralia jurado did speak with infectious disease provider. She does not recommend changing antibiotics. she does recommend considering repeat imaging, remains on Dapto, Meropenem and vorconazole and acyclovir continue from home prophylaxis . (2) Acute hypotension: Plan: Now resolved, secondary to sepsis (3) Acute diverticulitis: Plan: with persistent fever will re image abdomen and pelvis (4) AML (acute myeloblastic leukemia): Plan: currently on chemo with decitabine, no longer on venetoclax due to low blood counts and previous infection. Prior ASA and statin discontinued when started chemotherapy -Appreciate Heme/Onc consult-plan to treat infection and then resume chemo when ANC> 500 (currently 40) however given current performance status, suspect not likely for stem cell tx candidate and would consider pursuing hospice at that point if AML not responding to treatment. BMBx 03/16 with 80% bone marrow involvement. -Referral has been made to [facility] for stem cell transplant evaluation -continue prophylactic voriconazole,acyclovir, but now holding home levofloxacin while on meropenem -continue allopurinol monitor in AM (5) Pancytopenia: Plan: Antineoplastic induced pancytopenia as well as secondary to AML -last chemo one week prior to admission with decitabine hgb down to 7.0--> transfused 2 unit PRBCs last on 04/13 Platelets low on admission was given 4 units of platelets at the present time with last platelet be giving 04/20/2022 Had fever during first PRBC transfusion but do not suspect from transfusion. Transfusion reaction labs all negative -As per platelets-oncology recommends keep above 10 in hospital and above 15 if going home soon - no active bleeding at this time continue Neutropenic precautions Follow CBC-Hopeful for bone marrow recovery over the next few days Platelets tomorrow prior to dc, can continue transfusions outpatient as needed with Dr Burgos. T (6) Generalized weakness: Plan: Secondary to sepsis and infection PT/OT consults placed (7) Hyponatremia: Plan: Sodium mildly low at admission. Continue salt tablets 1 g p.o. twice daily, monitor repeat/urine studies/cut back oral supplementation if needed (8) Elevated troponin: Plan: Elevated troponin-peaked at 1500, no CP, no ischemic changes on ECG. Hx CABG This is myocardial demand ischemia in setting of sepsis and mod-severe on last ECHO 01/2022 with underlying CAD/CABG (9) Hypertension: Plan: Continue home metoprolol with hold parameters Blood pressures are normal 121/70 (10) Aortic stenosis: Plan: Moderate to severe with LVEF 60 to 65% Follow volume status, clinically volume depleted on admission and now euvolemic -Follow with cardiology as an outpt (11) Arteriosclerotic coronary artery disease: Plan: With a history of CABG Discontinued aspirin when he started chemotherapy due to thrombocytopenia Discontinued statin during recent admission for rhabdomyolysis Continue Toprol-XL (12) Pulmonary nodules: Plan: Previously symptomatic, at risk for opportunistic infections Declined invasive procedures at last pulmonary follow-up, especially given low counts and high risk -Chest CT on 04/20/2022 to evaluate for infectious causes seems similar to previous wit bilateral centrilobular and perifissural micronodules in conjunction with calcified mediastinal and hilar lymph nodes suspicious for sarcoidosis Follow-up as an outpatient Plan DVT prophylaxis-no chemical or mechanical due to risk of bleeding and bruising Fevers with persistent confusion whether neutropenic fever versus drug fever versus undertreated diverticular issue Plans to d/c on Bactrim/Flagyl BID should resume levaquin collectively once off other antibiotic Admission and Anticipated Discharge Date Admission Date: April 10, 2022 Subjective Patient states he feels improved after his fevers resolved. CT scan of chest abdomen pelvis and neck show no new changes but persistent mild acute sigmoid diverticulitis Patient has persistent neutropenia, thrombocytopenia And has had persistent significant fevers Review of Systems Review of Systems: Mild distress and fatigue no headache, no visual changes no speech or swallowing issues no chest pain, pressure or palpitations no shortness of breath, cough or wheezes No focal abdominal pain or complaints no significant diarrhea or hematochezia no dysuria, hematuria or frequency no focal joint pain or swelling no back pain, CVA tenderness or radicular pain no bruising, bleeding or rashes no focal signs of weakness or numbness or altered sensation no complaints of anxiety or depression.. Physical Exam Physical Exam: The patient appeared well nourished and normally developed. I was seeing him after his fever broke Vital signs as documented. Head exam is normocephalic atraumatic Small area on his lip which appears to be from him biting his lip but does not appear to be infectious or viral Neck is without JVD, thyromegaly, or carotid bruits. Lungs are clear to auscultation, no focal loss of breath sounds Cardiac exam, Rhythm is regular.. No murmurs, rubs or gallops. Abdominal exam reveals normal bowel sounds, soft non tender, no masses Abdominal exam is completely benign even with the face of this possible diverticulitis seen on CT scan Extremities are nonedematous and both pedal pulses are present Neurologic exam is alert and oriented, no focal loss of strength or sensation Skin is without bruises or rashes Psychologically is without concerns for anxiety or depression.. Results & Data Results & [facility] ([facility]) Vital Signs (Past 12 Hours) Vital Signs Temp Pulse Pulse Resp BP Pulse Ox O2 Del Method 04/20/22 07:51 102.9 F H 122 H 18 112/60 92 Room Air 04/20/22 02:32 97.3 F L 74 18 93/54 L 96 Room Air 04/19/22 22:18 86 04/19/22 22:51 97.2 F L 86 18 93/59 L 96 Room Air PG Care Time/CCT Total # of Minutes Spent Total Time Spent with Patient: Total time spent is greater than 50% in coordination of care (as documented) at patient's floor/unit and/or counseling patient: Coding Level of Care Code 86462 SUB INP/OBS CARE 3/50MIN Diagnoses Sepsis A41.9 Acute hypotension I95.9 Acute diverticulitis K57.92 AML (acute myeloblastic leukemia) C92.00 Leukemia Active/Remission status: without remission Pancytopenia D61.818 Generalized weakness R53.1 Hyponatremia E87.1 Elevated troponin R77.8 Hypertension I10 Aortic stenosis I35.0 Arteriosclerotic coronary artery disease I25.10 Pulmonary nodules R91.8 (1) AML (acute myeloblastic leukemia) Leukemia Active/Remission status: without remission Qualified Code(s): C92.00 - Acute myeloblastic leukemia, not having achieved remission
[2022-04-20 11:34] LABS: Hematocrit (blood only) 23.3 % (40.1-51.0); Hemoglobin 7.9 g/dl (14.0-18.0); Mean Platelet Volume 9.5 fL (9.4-12.4); Platelet Count 8 K/uL (130-400)
[2022-04-20 11:37] LABS: Mean Corpuscular Hemoglobin 30.4 pg (25.0-34.0); Mean Corpuscular Hgb Conc 33.9 g/dL (32.0-36.0); Mean Corpuscular Volume 89.6 fL (80.0-100.0); RDW Coefficient of Variation 14.7 % (11.5-14.5); RDW Standard Deviation 47.2 fL (36.4-46.3)
[2022-04-20 11:58] LABS: Albumin Globulin Ratio 0.8 (0.9-2); Albumin Level 2.7 gm/dl (3.4-5.0); Bilirubin,Total 0.6 mg/dl (0.2-1.0); Calcium 8.4 mg/dl (8.5-10.1); Creatinine Clr Calc Pharmacy 105.2 ml/min; Est GFR (African American) 114.8 ml/min; Est GFR (Non-African American) 99.1 ml/min; Globulin 3.3 gm/dl (2.5-4.0); Potassium 3.9 mmol/L (3.5-5.1)
[2022-04-20 12:30] LABS: White Blood Count 0.88 K/ul (4.8-10.8)
[2022-04-20 12:31] LABS: ANC (manual) 0.04 K/uL (1.4-6.5); Blast # (manual) 0.29 K/uL (0-0); Blast Cells % (manual) 33 %; Lymphocytes % (manual) 57 %; Monocytes # (manual) 0.01 K/uL (0.24-0.82); Monocytes % (manual) 1 %; Neutrophils # (manual) 0.04 K/uL (1.4-6.5); Neutrophils % (manual) 4 %; Promyelocytes # (manual) 0.04 K/uL (0-0); Promyelocytes % (manual) 5 %
--- NOTE | 2022-04-20 14:40 | CT Scan Report ---
CT chest diagnostic wo con CT DOSE: 357.12 mGycm CLINICAL HISTORY: 76 years-old Male with Fuo. Follow-up study in a patient with micronodules and felicitas cified lymph nodes. TECHNIQUE: Multiaxial CT images of the chest were performed without contrast. A dose lowering techni que was utilized adhering to the principles of ALARA. COMPARISON: Chest CT 03/27/2022, 01/22/2022, CT abdomen and pelvis 04/14/2022. FINDINGS: Subcentimeter hypodense nodule of the inferior right thyroid. Calcified mediastinal and hil ar lymph nodes are redemonstrated. Stable noncalcified 1.2 cm right paratracheal lymph node on image 48. No progressive lymphadenopathy identified. Cardiomegaly without pericardial effusion. Prior media n sternotomy with CABG and extensive [place] coronary artery calcifications. Atherosclerosis of the ao rta without aneurysm. Slight dilation of the pulmonary artery again noted which may represent pulmona ry arterial hypertension. Respiratory motion artifact again limits the study. There is no pneumothorax, pleural or overt pulmon roxana edema. The left pleural effusion has decreased in size from 04/14/2022. There is resolution of th e previously noted right pleural effusion. Mild nonspecific bronchial wall thickening again noted. St able 6 mm solid pulmonary nodule of the right upper lobe, image 102. The previously noted 6 mm ground glass nodule of the right upper lobe is not well visualized. Stable 7 mm groundglass nodule of the roland perior segment left lower lobe, image 90. Multilobar distribution of bilateral centrilobular and julián -fissural micronodules are again noted which appears stable to slightly improved. There are a few felicitas cified pulmonary granulomata also present. Mild right hemidiaphragmatic elevation. Central airways ar e patent. No acute process of the imaged upper abdomen. Degenerative changes of the shoulders and spine. No acu te fracture or destructive bone lesion. Mild superior endplate compression involving a few mid thorac ic segments appear chronic. IMPRESSION: 1. Compared to the study from 04/14/2022, there is decreased size of the small left pleural effusion with resolution of the right pleural effusion. 2. Centrilobular and perifissural micronodules are again noted in conjunction with calcified mediasti nal and hilar lymph nodes. Findings are again suspicious for sarcoidosis or other granulomatous proce ss. There is mildly improved aeration of the lungs compared to the 03/27/2022 exam. 3. Stable 6 mm solid nodule of the right upper lobe. 4. Additional findings as above. ACT 112: Negative or not required by law. Dictated: 04/20/2022 2:00 PM Transcribed: 04/20/2022 2:35 PM Pilar [id number] Electronically signed by: Garcia Vaca M.D. 04/20/2022 2:38 PM
--- NOTE | 2022-04-20 15:43 | Infectious Disease Progress Nt ---
Date of Service April 20, 2022 Assessment & Plan (1) Sepsis: (2) Febrile neutropenia: (3) AML (acute myeloblastic leukemia): (4) Pancytopenia: (5) Acute diverticulitis: (6) Palpable mass of neck: (7) Pulmonary nodules: (8) Bacteremia: Plan 76 yo M with a history of AML (dx 11/2021) s/p 3 cycles of decitabine (last received 03/27-03/31, with residual disease on recent BMBx--80%), recently started on venetoclax due to poor performance, on acyclovir, voriconazole, and levofloxacin ppx, CAD s/p CABG, multiple recent hospitalizations since 11/2021 for pancytopenia, CONS bacteremia with sacral wound, syncope, aortic stenosis, recent neck mass, chronic pulmonary nodules who presented on 04/10 with increased frequency of fevers (on top of baseline intermittent fevers and night sweats since his AML diagnosis), now admitted with ESBL E coli bacteremia and UTI. Noted to be neutropenic on admission with ANC 30. Hospital course has been complicated by persistent neutropenic fevers, and acute diverticulitis. Source of ESBL E coli bacteremia is likely UTI vs diverticulitis. He reported increased urinary urgency/frequency prior to admission. He did not initially complain of abd pain, but he underwent CT A/P on 04/14 due to ongoing high fevers and development of some lower abdominal pain, which showed findings of diverticulitis without abscess or perforation. His sacral wound is healed, states his neck mass is resolved after a course of empiric Augmentin, no kapoor, no hardware, no central lines. Abd pain is resolved. Daptomycin was added on 04/16 due to persistent fevers, but discontinued as no MRSA infection found--then restarted 04/19. Repeat BCx from 04/14, 04/16, 04/19 remain NGTD. Continues to fever. Antimicrobial course: Daptomycin 04/16 - present Meropenem 04/14 - present Voriconazole 04/10 - present Acyclovir 04/10 - present Levofloxacin 04/14 Ertapenem 04/11 - 04/14 Vancomycin 04/10 - 04/13 Cefepime 04/11 Problems: #ESBL E coli UTI and bacteremia #Diverticulitis: seen on 04/14 CT. No abscess or perforation seen. #Persistent fevers: last fever 1 #AML #Chronic pulmonary nodules: diffuse micronodules with calcified mediastinal/hilar lymph nodes suspicious for sarcoidosis on 03/27 CT. Also consider infectious/inflammatory pneumonitis. Followed by [facility], last seen 04/04--pt deferring bronch/BAL, biopsy at this time in light of his low counts. Follow-up CT in 3 months #R neck mass: 2.8 cm complex mixed echogenicity collection seen on 02/23 US--differential includes abscess, hematoma, or abnormal enlarged lymph node which could be suppurative or necrotic. Treated with empiric Augmentin with improvement. Pt reports mass is resolved Recommendations: -Would recommend stopping daptomycin--do not think he needs MRSA coverage since his repeat BCx remain NGTD, the only organism isolated so far is E coli. Daptomycin has not made any difference in his fever curve. -Can continue meropenem while inpatient -Repeat CT chest today shows no new findings, and unchanged diffuse micronodules. Awaiting CT neck, abd, pelvis to evaluate for occult sources of infection -If imaging is negative for new/worsened findings, would presume that his persistent fevers may be related to his AML, and discharge on TMP/SMX 1 DS tab PO q12h and metronidazole 500 mg PO q12h to complete a 14 day course (through 04/24/22) for treatment of diverticulitis and ESBL E coli bacteremia (Noting that the ESBL E coli is R to fluoroquinolones) -Should restart levofloxacin ppx on discharge when meropenem is stopped (QTc 463 on 04/10/22) -Continue AML prophylaxis with voriconazole and acyclovir -Continue follow-up with pulmonology regarding his pulmonary nodules--could represent infectious/inflammatory process contributing to persistent fevers. Reassuringly, he is already on voriconazole which would treat a fungal process. Ordered beta D glucan, Aspergillus Ag, urine Histo Ag, and serum Histo Ab to facilitate work-up Admission and Anticipated Discharge Date Admission Date: April 10, 2022 Subjective This patient recommendation is based on a telemedicine consult request which was completed asynchronously through chart review and information provided by the primary physician. The patient was not seen or examined today. The evaluation is consultative in nature and all patient care and treatment decisions can either be accepted or rejected by the patient's primary hospital-based treating physician using their own independent medical judgment for their patient. Febrile to Tmax of 40 yesterday ANC 0.04 today UA negative yesterday Review of System Pt not seen Physical Exam Physical Exam: Pt not seen Results & Data (MN) Vital Signs (Past 12 Hours) Vital Signs Temp Pulse Resp BP Pulse Ox O2 Del Method 04/20/22 12:00 36.4 C L 79 18 102/62 95 Room Air 04/20/22 12:00 Room Air 04/20/22 10:08 37.0 C 04/20/22 07:51 39.4 C H 122 H 18 112/60 92 Room Air Laboratory Results Short CBC 04/20/22 Range/Units 11:02 WBC 0.88 L* (4.8-10.8) K/ul Hgb 7.9 L (14.0-18.0) g/dl Hct 23.3 L (40.1-51.0) % Plt Count 8 L* (130-400) K/uL BMP 04/20/22 11:02 Sodium 135 L Potassium 3.9 Chloride 103 Carbon Dioxide 27 BUN 14 Creatinine 0.56 L Glucose 120 H Calcium 8.4 L Liver Function 04/20/22 Range/Units 11:02 Total Bilirubin 0.6 (0.2-1.0) mg/dl AST 16 (13-39) U/L ALT 13 (7-52) U/L Alkaline Phosphatase 60 (34-104) U/L Albumin 2.7 L (3.4-5.0) gm/dl Urine 04/19/22 Range/Units 22:45 Urine Color Yellow Urine Appearance Clear (Clear) Urine pH 6.0 (4.5-7.5) Ur Specific [place] 1.005 (1.000-1.030) Urine Protein Negative (Negative) Urine Glucose (UA) Negative (Negative) Diagnostic Findings Chest CT 04/20/22 11:24 CT chest diagnostic wo con CT DOSE: 357.12 mGycm CLINICAL HISTORY: 76 years-old Male with Fuo. Follow-up study in a patient with micronodules and calcified lymph nodes. TECHNIQUE: Multiaxial CT images of the chest were performed without contrast. A dose lowering technique was utilized adhering to the principles of ALARA. COMPARISON: Chest CT 03/27/2022, 01/22/2022, CT abdomen and pelvis 04/14/2022. FINDINGS: Subcentimeter hypodense nodule of the inferior right thyroid. Calcified mediastinal and hilar lymph nodes are redemonstrated. Stable noncalcified 1.2 cm right paratracheal lymph node on image 48. No progressive lymphadenopathy identified. Cardiomegaly without pericardial effusion. Prior median sternotomy with CABG and extensive [place] coronary artery calcifications. Atherosclerosis of the aorta without aneurysm. Slight dilation of the pulmonary artery again noted which may represent pulmonary arterial hypertension. Respiratory motion artifact again limits the study. There is no pneumothorax, pleural or overt pulmonary edema. The left pleural effusion has decreased in size from 04/14/2022. There is resolution of the previously noted right pleural effusion. Mild nonspecific bronchial wall thickening again noted. Stable 6 mm solid pulmonary nodule of the right upper lobe, image 102. The previously noted 6 mm groundglass nodule of the right upper lobe is not well visualized. Stable 7 mm groundglass nodule of the superior segment left lower lobe, image 90. Multilobar distribution of bilateral centrilobular and julián-fissural micr onodules are again noted which appears stable to slightly improved. There are a few calcified pulmonary granulomata also present. Mild right hemidiaphragmatic elevation. Central airways are patent. No acute process of the imaged upper abdomen. Degenerative changes of the shoulders and spine. No acute fracture or destructive bone lesion. Mild superior endplate compression involving a few mid thoracic segments appear chronic. IMPRESSION: 1. Compared to the study from 04/14/2022, there is decreased size of the small left pleural effusion with resolution of the right pleural effusion. 2. Centrilobular and perifissural micronodules are again noted in conjunction with calcified mediastinal and hilar lymph nodes. Findings are again suspicious for sarcoidosis or other granulomatous process. There is mildly improved aeration of the lungs compared to the 03/27/2022 exam. 3. Stable 6 mm solid nodule of the right upper lobe. 4. Additional findings as above. ACT 112: Negative or not required by law. Dictated: 04/20/2022 2:00 PM Transcribed: 04/20/2022 2:35 PM Pilar [id number] Electronically signed by: Garcia Vaca M.D. 04/20/2022 2:38 PM Medications Administered Current Inpatient Medications Acetaminophen (Acetaminophen 500 Mg Tab) 1,000 mg PO Q8H PRN PRN Reason: Pain or Fever Stop: 05/10/22 20:41 Last Admin: 04/20/22 09:07 Dose: 1,000 mg Acyclovir (Acyclovir 400 Mg Tab) 400 mg PO BID [facility] Stop: 05/10/22 20:59 Last Admin: 04/20/22 09:01 Dose: 400 mg Allopurinol (Allopurinol 300 Mg Tab) 300 mg PO [facility] Stop: 05/11/22 08:59 Last Admin: 04/20/22 09:01 Dose: 300 mg Ascorbic Acid (Ascorbic Acid 500 Mg Tab) 500 mg PO BID [facility] Stop: 05/10/22 20:59 Last Admin: 04/20/22 09:01 Dose: 500 mg Cyanocobalamin (Cyanocobalamin (B-12) 500 Mcg Tablet) 1,000 mcg PO [facility] Stop: 05/11/22 08:59 Last Admin: 04/20/22 09:01 Dose: 1,000 mcg Meropenem 500 mg/ Syringe 10 mls @ 2 mls/min IV Q6H [facility]; Protocol Stop: 04/28/22 13:59 Last Admin: 04/20/22 14:10 Dose: 2 mls/min Daptomycin 450 mg/ Syringe 9 mls @ 4.5 mls/min IV DAILY@1800 [facility]; Protocol Stop: 05/03/22 17:59 Last Admin: 04/19/22 19:38 Dose: 4.5 mls/min Melatonin (Melatonin 3 Mg Tab) 6 mg PO [facility] Stop: 05/10/22 20:59 Last Admin: 04/19/22 21:46 Dose: 6 mg Metoprolol Succinate (Metoprolol Succ 50mg Ext Rel Tab) 50 mg PO [facility] Stop: 05/11/22 08:59 Last Admin: 04/20/22 09:01 Dose: 50 mg Nitroglycerin (Nitroglycerin Sl 0.4 Mg/Tab Tab) 0.4 mg SL Q5M PRN PRN Reason: Chest Pain Stop: 05/10/22 20:41 Ondansetron HCl (Ondansetron 4 Mg Od Tab) 4 mg PO Q6H PRN PRN Reason: Nausea Stop: 05/10/22 20:41 Polyethylene Glycol (Polyethylene (Miralax) 17 Gm Pack) 17 gm PO DAILY PRN PRN Reason: Constipation Stop: 05/10/22 20:41 Sodium Chloride (Sodium Chloride 1 Gm Tablet) 1 gm PO BID [facility] Stop: 05/10/22 20:59 Last Admin: 04/20/22 09:01 Dose: 1 gm Voriconazole (Voriconazole 200 Mg Tablet) 200 mg PO BID [facility] Stop: 05/10/22 20:59 Last Admin: 04/20/22 09:01 Dose: 200 mg
--- NOTE | 2022-04-20 15:53 | CT Scan Report ---
ABDOMEN AND PELVIS CT WITH ORAL CONTRAST CT DOSE: 754.33 mGycm HISTORY: Screening study in a patient with acute fever of unknown etiology eval for intra abdominal fever source TECHNIQUE: Multiaxial CT images of the abdomen and pelvis were performed following the use of oral co ntrast. A dose lowering technique was utilized adhering to the principles of ALARA. COMPARISON STUDY: Chest CT of same day, CT abdomen and pelvis 04/14/2022, 11/22/2021 FINDINGS: Prior median sternotomy. Cardiomegaly with CABG extensive [place] coronary artery calcificat ions. Partially calcified mediastinal and hilar lymph nodes small left pleural effusion decreased in size from the most recent comparison. Resolution of the previous noted right pleural effusion. Centri lobular micronodules are further discussed on the chest CT of same day. The spleen is mildly enlarged, 13.4 cm in length. Unremarkable pancreas, gallbladder, adrenal glands and liver. Mild nonspecific bilateral perinephric stranding. 4.0 cm cyst within the superior pole rig ht kidney. 2.8 cm cyst in the inferior pole right kidney. There are a few subcentimeter hypodensities of the left kidney which are too small to characterize, likely representing additional cysts. No herb al or ureteral calculi or hydronephrosis. Mild prostamegaly. Partial distention of the urinary bladde r with wall thickening. Atherosclerosis of the aorta with saccular aneurysmal dilation redemonstrated measuring up to 3.1 x 3.5 cm, stable from prior. No aneurysm rupture. Nonspecific mildly enlarged pe riaortic lymph nodes measure up to 1.7 x 1.2 cm. To borderline enlarged pericaval and periportal lymp h nodes again noted. No bowel obstruction. Colonic diverticulosis. Mild acute diverticulitis in the proximal sigmoid colon is redemonstrated, suboptimally evaluated without the use of IV contrast. Subcentimeter adjacent lym ph nodes appear stable. Noninflamed appendix. Tiny fat filled umbilical hernia. Degenerative changes of the spine, pelvis and hips. Ovoid lucent focus of the L1 vertebral body is stable. IMPRESSION: 1. Mild acute sigmoid diverticulitis has not significantly changed compared to the 04/14/2022 exam. C olonoscopy following treatment course recommended to exclude the less likely possibility of an underl berkley lesion. 2. No pneumoperitoneum or abscess. 3. Subcentimeter lymph nodes within the sigmoid mesocolon are likely reactive. 4. Compared to the study from 04/14/2022, there is decreased size of the small left pleural effusion with resolution of the right pleural effusion. 5. Unchanged infrarenal abdominal aortic aneurysm. 6. Additional findings as above. ACT 112: Negative or not required by law. The above report was generated using voice recognition software. It may contain grammatical, syntax o r spelling errors. Electronically signed by: Garcia Vaca M.D. 04/20/2022 3:51 PM
--- NOTE | 2022-04-20 16:27 | CT Scan Report ---
CT SCAN OF THE NECK WITHOUT IV CONTRAST CLINICAL HISTORY: Fever of unknown origin. COMPARISON STUDY: CT of the cervical spine dated 01/21/2022. Ultrasound of the neck dated 02/23/2022. TECHNIQUE: Unenhanced CT scan of the soft tissues of the neck was performed from the skull base to th e upper chest. Images are reviewed in the axial, sagittal, and coronal planes. IV contrast was not a dministered. Note that the examination no significant suboptimal without IV contrast. A dose lowerin g technique was utilized adhering to the principles of ALARA. CT DOSE: 395.91 mGycm FINDINGS: Pharynx: The unenhanced sagittal soft tissues are grossly normal in appearance. The pharyngeal airway is widely patent. There is no evidence of mass lesion. The vocal cords are symmetric. The parapharyn geal fat is well maintained. The prevertebral/retropharyngeal soft tissues are within normal limits. The epiglottis is normal. Lymphadenopathy: No cervical lymphadenopathy is seen Thyroid: Normal in size and heterogeneous and attenuation. Salivary glands: The parotid and submandibular glands are within normal limits. Brain parenchyma: The visualized brain parenchyma at the skull base is normal in appearance noting ag e-related involutional change. Skeletal structures: The skeletal structures are osteopenic. Imaged portions of the calvarium at the skull base are within normal limits. The cervical spine appears intact noting multilevel spondylosis. Midline sternotomy wires are noted. Orbits: The bony orbits are intact. Orbital contents are normal as visualized noting bilateral ocular lens implants. Sinuses and mastoids: Mild mucosal thickening is seen in the right maxillary antrum. There is trace m ucosal thickening in the left sphenoid sinus. The remaining visualized paranasal sinuses are clear. T here is a small left mastoid effusion. The right mastoid air cells are well pneumatized. Upper chest: Foci of tree-in-bud nodularity are seen throughout the upper lobes. Mildly enlarged lymp h nodes in the superior mediastinum measure up to 10 mm short axis. Soft tissues: There is atherosclerotic calcification of the carotid bulbs. IMPRESSION: 1. No acute abnormality is identified in the neck on this unenhanced examination. 2. Tree-in-bud opacities in the upper lobes could be seen with an infectious/inflammatory pneumonitis or possibly a granulomatous process. This was better assessed on today's chest CT. 3. Additional findings as above. ACT 112: Negative or not required by law. Electronically signed by: Max Toure M.D. 04/20/2022 4:26 PM
[2022-04-20] MEDS: DAPTOmycin 450 MG in SYRINGE 0 ML IV SCH (20:40)
[2022-04-20] MEDS: MELATONIN 3 MG TAB PO SCH (21:30)
[2022-04-21] MEDS: MEROPENEM 500 MG in SYRINGE 0 ML IV SCH ×4 (02:15→20:18)
[2022-04-21] MEDS: ASCORBIC ACID 500 MG TAB PO SCH ×2 (08:12→20:17)
[2022-04-21] MEDS: SODIUM CHLORIDE 1 GM TABLET PO SCH ×2 (08:12→20:16)
[2022-04-21] MEDS: VORICONAZOLE 200 MG TABLET PO SCH ×2 (08:12→20:17)
[2022-04-21] MEDS: ACYCLOVIR 400 MG TAB PO SCH ×2 (08:12→20:17)
[2022-04-21] MEDS: CYANOCOBALAMIN (B-12) 500 MCG TABLET PO SCH (08:12)
[2022-04-21] MEDS: METOPROLOL SUCC 50MG EXT REL TAB PO SCH (08:13)
[2022-04-21] MEDS: allopurinoL 300 MG TAB PO SCH (08:13)
[2022-04-21 09:55] LABS: Hematocrit (blood only) 22.9 % (40.1-51.0); Hemoglobin 7.7 g/dl (14.0-18.0); Mean Corpuscular Hgb Conc 33.6 g/dL (32.0-36.0); Mean Corpuscular Volume 89.1 fL (80.0-100.0); Mean Platelet Volume 10.6 fL (9.4-12.4); Platelet Count 31 K/uL (130-400); RDW Coefficient of Variation 14.6 % (11.5-14.5); RDW Standard Deviation 46.8 fL (36.4-46.3); Red Blood Count 2.57 M/uL (4.63-6.08); White Blood Count 0.85 K/ul (4.8-10.8)
[2022-04-21 11:01] LABS: ANC (manual) 0.03 K/uL (1.4-6.5); Blast Cells % (manual) 23 %; Lymphocytes % (manual) 70 %; Monocytes # (manual) 0.03 K/uL (0.24-0.82); Monocytes % (manual) 3 %; Neutrophils # (manual) 0.03 K/uL (1.4-6.5); Neutrophils % (manual) 4 %
[2022-04-21] MEDS: ACETAMINOPHEN 500 MG TAB PO PRN (12:08)
--- NOTE | 2022-04-21 12:37 | Infectious Disease Progress Nt ---
Date of Service April 21, 2022 Assessment & Plan (1) Febrile neutropenia: (2) AML (acute myeloblastic leukemia): (3) Pancytopenia: (4) Acute diverticulitis: (5) Pulmonary nodules: (6) Bacteremia: Plan 76 yo M with a history of AML (dx 11/2021) s/p 3 cycles of decitabine (last re ceived 03/27-03/31, with residual disease on recent BMBx--80%), recently started on venetoclax due to poor performance, on acyclovir, voriconazole, and levofloxacin ppx, CAD s/p CABG, multiple recent hospitalizations since 11/2021 for pancytopenia, CONS bacteremia with sacral wound, syncope, aortic stenosis, recent neck mass, chronic pulmonary nodules who presented on 04/10 with increased frequency of fevers (on top of baseline intermittent fevers and night sweats since his AML diagnosis), now admitted with ESBL E coli bacteremia and UTI. Noted to be neutropenic on admission with ANC 30. Hospital course has been complicated by persistent neutropenic fevers, and acute diverticulitis. Source of ESBL E coli bacteremia is likely UTI vs diverticulitis. He reported increased urinary urgency/frequency prior to admission. He did not initially complain of abd pain, but he underwent CT A/P on 04/14 due to ongoing high fevers and development of some lower abdominal pain, which showed findings of d iverticulitis without abscess or perforation. He has been on appropriate antibiotic therapy with a carbapenem since 04/11. His abdominal pain is resolved. However, he continues to have neutropenic fevers. Work-up has not shown other sources of infection. Pt has no complaints--no respiratory symptoms, no abd pain. His sacral wound is healed, no kapoor, no hardware, no central lines. Daptomycin was added on 04/16 due to persistent fevers, but discontinued as no MRSA infection found--then restarted 04/19, with no improvement in his fever curve. Repeat BCx from 04/14, 04/16, 04/19 remain negative. He underwent repeat imaging on 04/20, with CT neck not showing previously seen R neck mass from February, CT chest showing stable diffuse pulmonary nodules which have been present for months, and CT A/P showing mild acute sigmoid diverticulitis, not significantly changed from prior. Unknown source of persistent fevers--may be related to his AML, drug fevers, delayed recovery from pyelonephritis/diverticulitis in the setting of his neutropenia. Micro: 04/19 BCx x2: NGTD 04/16 BCx x2: NG 04/14 BCx x2: NG 04/12 BCx x2: NG 04/10 UCx: ESBL E coli (S amox/clav, amp/sul, erta, nathan, nitrofurantoin, TMP/SMX, pip/tazo. R cipro, levo) 04/10 BCx x2: ESBL E coli in 04/19 bottles (S erta, nathan. R cipro, levo) 04/10 RVP: negative 01/25 Nasal MRSA Screen: negative Antimicrobial course: Daptomycin 04/16 - present Meropenem 04/14 - present Voriconazole 04/10 - present Acyclovir 04/10 - present Levofloxacin 04/14 Ertapenem 04/11 - 04/14 Vancomycin 04/10 - 04/13 Cefepime 04/11 Problems: #ESBL E coli UTI and bacteremia #Diverticulitis: seen on 04/14 CT. No abscess or perforation seen. Stable on repeat CT without contrast on 04/20 #Persistent fevers #AML #Chronic pulmonary nodules: diffuse micronodules with calcified mediastinal/hilar lymph nodes suspicious for sarcoidosis on 03/27 CT. Also consider infectious/inflammatory pneumonitis. Followed by [facility], last seen 04/04--pt deferring bronch/BAL, biopsy at this time in light of his low counts. Stable on repeat CT 04/20. No respiratory symptoms. #R neck mass: 2.8 cm complex mixed echogenicity collection seen on 02/23 US--differential includes abscess, hematoma, or abnormal enlarged lymph node which could be suppurative or necrotic. Treated with empiric Augmentin with improvement. Pt reports resolved. Not seen on repeat CT 04/20 Recommendations: -Would recommend stopping daptomycin--do not think he needs MRSA coverage since his repeat BCx remain NGTD, the only organism isolated so far is E coli. Daptomycin has not made any difference in his fever curve. -Can continue meropenem while inpatient -If there is concern for drug fevers, could stop the dapto/meropenem and transition to TMP/SMX 1 DS tab PO q12h and metronidazole 500 mg PO q12h and assess for improvement in fever curve. -If pt remains stable, would presume that his persistent fevers may be related to his AML, and discharge on TMP/SMX 1 DS tab PO q12h and metronidazole 500 mg PO q12h to complete a 14 day course (through 04/24/22) for treatment of diverticulitis and ESBL E coli bacteremia (Noting that the ESBL E coli is R to fluoroquinolones) -Should restart levofloxacin ppx when meropenem is stopped (QTc 463 on 04/10/22) -Continue AML prophylaxis with voriconazole and acyclovir -Continue follow-up with pulmonology regarding his pulmonary nodules--could represent infectious/inflammatory process contributing to persistent fevers. Reassuringly, he is already on voriconazole which would treat a fungal process. Ordered beta D glucan, Aspergillus Ag, urine Histo Ag, and serum Histo Ab to facilitate work-up Admission and Anticipated Discharge Date Admission Date: April 10, 2022 Subjective This patient recommendation is based on a telemedicine consult request which was completed asynchronously through chart review and information provided by the primary physician. The patient was not seen or examined today. The evaluation is consultative in nature and all patient care and treatment decisions can either be accepted or rejected by the patient's primary hospital-based treating physician using their own independent medical judgment for their patient. CT neck, chest, A/P without contrast yesterday without new findings. Febrile to 38 this afternoon ANC 0.03 Continues on daptomycin and meropenem, voriconazole, acyclovir Review of System Pt not seen Physical Exam Physical Exam: Pt was not seen Results & Data ([facility]) Vital Signs (Past 12 Hours) Vital Signs Temp Pulse Pulse Resp BP BP Pulse Ox 04/21/22 11:52 37.4 C 108 H 15 116/72 97 04/21/22 10:43 36.5 C 108 H 15 98/67 L 97 04/21/22 07:00 99 H 04/21/22 10:02 04/21/22 07:59 36.6 C 108 H 15 106/68 96 04/21/22 03:02 36.4 C L 102 H 16 105/70 96 O2 Del Method 04/21/22 11:52 Room Air 04/21/22 10:43 Room Air 04/21/22 07:00 04/21/22 10:02 Room Air 04/21/22 07:59 Room Air 04/21/22 03:02 Room Air Laboratory Results Short CBC 04/21/22 Range/Units 09:35 WBC 0.85 L* (4.8-10.8) K/ul Hgb 7.7 L (14.0-18.0) g/dl Hct 22.9 L (40.1-51.0) % Plt Count 31 L D (130-400) K/uL Diagnostic Findings Abdomen/Pelvis CT 04/20/22 10:[address] WITH ORAL CONTRAST CT DOSE: 754.33 mGycm HISTORY: Screening study in a patient with acute fever of unknown etiology eval for intra abdominal fever source TECHNIQUE: Multiaxial CT images of the abdomen and pelvis were performed following the use of oral contrast. A dose lowering technique was utilized adhe ring to the principles of ALARA. COMPARISON STUDY: Chest CT of same day, CT abdomen and pelvis 04/14/2022, 11/22/2021 FINDINGS: Prior median sternotomy. Cardiomegaly with CABG extensive [place] artery calcifications. Partially calcified mediastinal and hilar lymph nodes small left pleural effusion decreased in size from the most recent comparison. Resolution of the previous noted right pleural effusion. Centrilobular micronodules are further discussed on the chest CT of same day. The spleen is mildly enlarged, 13.4 cm in length. Unremarkable pancreas, gallbladder, adrenal glands and liver. Mild nonspecific bilateral perinephric stranding. 4.0 cm cyst within the superior pole right kidney. 2.8 cm cyst in the inferior pole right kidney. There are a few subcentimeter hypodensities of the left kidney which are too small to characterize, likely representing additional cysts. No renal or ureteral calculi or hydronephrosis. Mild prostamegaly. Partial distention of the urinary bladder with wall thickening. Atherosclerosis of the aorta with saccular aneurysmal dilation redemonstrated measuring up to 3.1 x 3.5 cm, stable from prior. No aneurysm rupture. Nonspecific mildly enlarge d periaortic lymph nodes measure up to 1.7 x 1.2 cm. To borderline enlarged pericaval and periportal lymph nodes again noted. No bowel obstruction. Colonic diverticulosis. Mild acute diverticulitis in the proximal sigmoid colon is redemonstrated, suboptimally evaluated without the use of IV contrast. Subcentimeter adjacent lymph nodes appear stable. Noninflamed appendix. Tiny fat filled umbilical hernia. Degenerative changes of the spine, pelvis and hips. Ovoid lucent focus of the L1 vertebral body is stable. IMPRESSION: 1. Mild acute sigmoid diverticulitis has not significantly changed compared to the 04/14/2022 exam. Colonoscopy following treatment course recommended to exclude the less likely possibility of an underlying lesion. 2. No pneumoperitoneum or abscess. 3. Subcentimeter lymph nodes within the sigmoid mesocolon are likely reactive. 4. Compared to the study from 04/14/2022, there is decreased size of the small left pleural effusion with resolution of the right pleural effusion. 5. Unchanged infrarenal abdominal aortic aneurysm. 6. Additional findings as above. ACT 112: Negative or not required by law. The above report was generated using voice recognition software. It may contain grammatical, syntax or spelling errors. Electronically signed by: Garcia Vaca M.D. 04/20/2022 3:[address] 04/20/22 11:24 CT chest diagnostic wo con CT DOSE: 357.12 mGycm CLINICAL HISTORY: 76 years-old Male with Fuo. Follow-up study in a patient with micronodules and calcified lymph nodes. TECHNIQUE: Multiaxial CT images of the chest were performed without contrast. A dose lowering technique was utilized adhering to the principles of ALARA. COMPARISON: Chest CT 03/27/2022, 01/22/2022, CT abdomen and pelvis 04/14/2022. FINDINGS: Subcentimeter hypodense nodule of the inferior right thyroid. Calcified mediastinal and hilar lymph nodes are redemonstrated. Stable noncalcified 1.2 cm right paratracheal lymph node on image 48. No progressive lymphadenopathy identified. Cardiomegaly without pericardial effusion. Prior median sternotomy with CABG and extensive [place] coronary artery calcifications. Atherosclerosis of the aorta without aneurysm. Slight dilation of the pulmonary artery again noted which may represent pulmonary arterial hypertension. Respiratory motion artifact again limits the study. There is no pneumothorax, pleural or overt pulmonary edema. The left pleural effusion has decreased in size from 04/14/2022. There is resolution of the previously noted right pleural effusion. Mild nonspecific bronchial wall thickening again noted. Stable 6 mm solid pulmonary nodule of the right upper lobe, image 102. The previously noted 6 mm groundglass nodule of the right upper lobe is not well visualized. Stable 7 mm groundglass nodule of the superior segment left lower lobe, image 90. Multilobar distribution of bilateral centrilobular and julián-fissural micronodules are again noted which appears stable to slightly improved. There are a few calcified pulmonary granulomata also present. Mild right hemidiaphragmatic elevation. Central airways are patent. No acute process of the imaged upper abdomen. Degenerative changes of the shoulders and spine. No acute fracture or destructive bone lesion. Mild superior endplate compression involving a few mid thoracic segments appear chronic. IMPRESSION: 1. Compared to the study from 04/14/2022, there is decreased size of the small left pleural effusion with resolution of the right pleural effusion. 2. Centrilobular and perifissural micronodules are again noted in conjunction with calcified mediastinal and hilar lymph nodes. Findings are again suspicious for sarcoidosis or other granulomatous process. There is mildly improved aeration of the lungs compared to the 03/27/2022 exam. 3. Stable 6 mm solid nodule of the right upper lobe. 4. Additional findings as above. ACT 112: Negative or not required by law. Dictated: 04/20/2022 2:00 PM Transcribed: 04/20/2022 2:35 PM [facility] [id number] [facility] Electronically signed by: Garcia Vaca M.D. 04/20/2022 2:38 PM Soft Tissue Neck CT 04/20/22 11:24 CT SCAN OF THE NECK WITHOUT IV CONTRAST CLINICAL HISTORY: Fever of unknown origin. COMPARISON STUDY: CT of the cervical spine dated 01/21/2022. Ultrasound of the neck dated 02/23/2022. TECHNIQUE: Unenhanced CT scan of the soft tissues of the neck was performed from the skull base to the upper chest. Images are reviewed in the axial, sagittal, and coronal planes. IV contrast was not administered. Note that the examination no significant suboptimal without IV contrast. A dose lowering technique was utilized adhering to the principles of ALARA. CT DOSE: 395.91 mGycm FINDINGS: Pharynx: The unenhanced sagittal soft tissues are grossly normal in appearance. The pharyngeal airway is widely patent. There is no evidence of mass lesion. The vocal cords are symmetric. The parapharyngeal fat is well maintained. The prevertebral/retropharyngeal soft tissues are within normal limits. The epiglottis is normal. Lymphadenopathy: No cervical lymphadenopathy is seen Thyroid: Normal in size and heterogeneous and attenuation. Salivary glands: The parotid and submandibular glands are within normal limits. Brain parenchyma: The visualized brain parenchyma at the skull base is normal in appearance noting age-related involutional change. Skeletal structures: The skeletal structures are osteopenic. Imaged portions of the calvarium at the skull base are within normal limits. The cervical spine appears intact noting multilevel spondylosis. Midline sternotomy wires are noted. Orbits: The bony orbits are intact. Orbital contents are normal as visualized noting bilateral ocular lens implants. Sinuses and mastoids: Mild mucosal thickening is seen in the right maxillary antrum. There is trace mucosal thickening in the left sphenoid sinus. The remaining visualized paranasal sinuses are clear. There is a small left mastoid effusion. The right mastoid air cells are well pneumatized. Upper chest: Foci of tree-in-bud nodularity are seen throughout the upper lobes. Mildly enlarged lymph nodes in the superior mediastinum measure up to 10 mm short axis. Soft tissues: There is atherosclerotic calcification of the carotid bulbs. IMPRESSION: 1. No acute abnormality is identified in the neck on this unenhanced examination. 2. Tree-in-bud opacities in the upper lobes could be seen with an infectious/inflammatory pneumonitis or possibly a granulomatous process. This was better assessed on today's chest CT. 3. Additional findings as above. ACT 112: Negative or not required by law. Electronically signed by: Max Toure M.D. 04/20/2022 4:26 PM Medications Administered Current Inpatient Medications Acetaminophen (Acetaminophen 500 Mg Tab) 1,000 mg PO Q8H PRN PRN Reason: Pain or Fever Stop: 05/10/22 20:41 Last Admin: 04/21/22 12:08 Dose: 1,000 mg Acyclovir (Acyclovir 400 Mg Tab) 400 mg PO BID [facility] Stop: 05/10/22 20:59 Last Admin: 04/21/22 08:12 Dose: 400 mg Allopurinol (Allopurinol 300 Mg Tab) 300 mg PO QAM [facility] Stop: 05/11/22 08:59 Last Admin: 04/21/22 08:13 Dose: 300 mg Ascorbic Acid (Ascorbic Acid 500 Mg Tab) 500 mg PO BID [facility] Stop: 05/10/22 20:59 Last Admin: 04/21/22 08:12 Dose: 500 mg Cyanocobalamin (Cyanocobalamin (B-12) 500 Mcg Tablet) 1,000 mcg PO QAM [facility] Stop: 05/11/22 08:59 Last Admin: 04/21/22 08:12 Dose: 1,000 mcg Meropenem 500 mg/ Syringe 10 mls @ 2 mls/min IV Q6H [facility]; Protocol Stop: 04/28/22 13:59 Last Admin: 04/21/22 13:43 Dose: 2 mls/min Daptomycin 450 mg/ Syringe 9 mls @ 4.5 mls/min IV DAILY@1800 [facility]; Protocol Stop: 05/03/22 17:59 Last Admin: 04/20/22 20:40 Dose: 4.5 mls/min Melatonin (Melatonin 3 Mg Tab) 6 mg PO HS [facility] Stop: 05/10/22 20:59 Last Admin: 04/20/22 21:30 Dose: 6 mg Metoprolol Succinate (Metoprolol Succ 50mg Ext Rel Tab) 50 mg PO [facility] Stop: 05/11/22 08:59 Last Admin: 04/21/22 08:13 Dose: 50 mg Nitroglycerin (Nitroglycerin Sl 0.4 Mg/Tab Tab) 0.4 mg SL Q5M PRN PRN Reason: Chest Pain Stop: 05/10/22 20:41 Ondansetron HCl (Ondansetron 4 Mg Od Tab) 4 mg PO Q6H PRN PRN Reason: Nausea Stop: 05/10/22 20:41 Polyethylene Glycol (Polyethylene (Miralax) 17 Gm Pack) 17 gm PO DAILY PRN PRN Reason: Constipation Stop: 05/10/22 20:41 Sodium Chloride (Sodium Chloride 1 Gm Tablet) 1 gm PO BID [facility] Stop: 05/10/22 20:59 Last Admin: 04/21/22 08:12 Dose: 1 gm Voriconazole (Voriconazole 200 Mg Tablet) 200 mg PO BID [facility] Stop: 05/10/22 20:59 Last Admin: 04/21/22 08:12 Dose: 200 mg
[2022-04-21] MEDS: DAPTOmycin 450 MG in SYRINGE 0 ML IV SCH (17:55)
--- NOTE | 2022-04-21 18:23 | Hospitalist Progress Note ---
Date of Service April 21, 2022 Assessment & Plan (1) Sepsis: Plan: Presents with sepsis from ESBL ecoli uti source, with neutropenic fever, hypotension. Prior admit for sepsis w/ sacral ulceration as suspected source (looks good currently, not reddened per nursing) With ESBL E. coli septicemia and UTI as the source daptomycin plus meropenem Ur cx and BCxs with ESBL E. coli Repeat blood cultures 04/12-NGTD, 04/14-NGTD Oralia jurado did speak with infectious disease provider. She does not recommend changing antibiotics. she does recommend considering repeat imaging, remains on Dapto, Meropenem and vorconazole and acyclovir continue from home prophylaxis . (2) Acute hypotension: Plan: Now resolved, secondary to sepsis (3) Acute diverticulitis: Plan: with persistent fever will re image abdomen and pelvis (4) AML (acute myeloblastic leukemia): Plan: currently on chemo with decitabine, no longer on venetoclax due to low blood counts and previous infection. Prior ASA and statin discontinued when started chemotherapy -Appreciate Heme/Onc consult-plan to treat infection and then resume chemo when ANC> 500 (currently 40) however given current performance status, suspect not likely for stem cell tx candidate and would consider pursuing hospice at that point if AML not responding to treatment. BMBx 03/16 with 80% bone marrow involvement. 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 Transfusion reaction labs all negative -As per platelets-oncology recommends keep above 10 in hospital and above 15 if going home soon - no active bleeding at this time continue Neutropenic precautions, remains so on 04/21/22 still not having bone marrow recovery over the next few days, not a candidate for Neupogen due to prominent abnormal blast forms Platelets tomorrow prior to dc, can continue transfusions outpatient as needed with Dr Ajala. Duron (6) Generalized weakness: Plan: Secondary to sepsis and infection PT/OT consults placed (7) Hyponatremia: Plan: Sodium mildly low at admission. Continue salt tablets 1 g p.o. twice daily, monitor repeat/urine studies/cut back oral supplementation if needed (8) Elevated troponin: Plan: Elevated troponin-peaked at 1500, no CP, no ischemic changes on ECG. Hx CABG This is myocardial demand ischemia in setting of sepsis and mod-severe on last ECHO 01/2022 with underlying CAD/CABG (9) Hypertension: Plan: Continue home metoprolol with hold parameters Blood pressures are normal 121/70 (10) Aortic stenosis: Plan: Moderate to severe with LVEF 60 to 65% Follow volume status, clinically volume depleted on admission and now euvolemic -Follow with cardiology as an outpt (11) Arteriosclerotic coronary artery disease: Plan: With a history of CABG Discontinued aspirin when he started chemotherapy due to thrombocytopenia Discontinued statin during recent admission for rhabdomyolysis Continue Toprol-XL (12) Pulmonary nodules: Plan: Previously symptomatic, at risk for opportunistic infections Declined invasive procedures at last pulmonary follow-up, especially given low counts and high risk -Chest CT on 04/20/2022 to evaluate for infectious causes seems similar to previous wit bilateral centrilobular and perifissural micronodules in conjunction with calcified mediastinal and hilar lymph nodes suspicious for sarcoidosis Follow-up as an outpatient Plan DVT prophylaxis-no chemical or mechanical due to risk of bleeding and bruising Fevers with persistent confusion whether neutropenic fever versus drug fever versus undertreated diverticular issue Plans to d/c on Bactrim/Flagyl BID should resume levaquin collectively once off other antibiotic Admission and Anticipated Discharge Date Admission Date: April 10, 2022 Subjective pt is in no distress has less fever but still low grade understands may have delay in healing with neutropenia, will keep to try to achieve 24 hous non fever Continues on daptomycin and meropenem, voriconazole, acyclovir Review of Systems Review of Systems: Mild distress and fatigue no headache, no visual changes no speech or swallowing issues no chest pain, pressure or palpitations no shortness of breath, cough or wheezes No focal abdominal pain or complaints no significant diarrhea or hematochezia no dysuria, hematuria or frequency no focal joint pain or swelling no back pain, CVA tenderness or radicular pain no bruising, bleeding or rashes no focal signs of weakness or numbness or altered sensation no complaints of anxiety or depression.. Physical Exam Physical Exam: The patient appeared well nourished and normally developed. I was seeing him after his fever broke Vital signs as documented. Head exam is normocephalic atraumatic Small area on his lip which appears to be from him biting his lip but does not appear to be infectious or viral Neck is without JVD, thyromegaly, or carotid bruits. Lungs are clear to auscultation, no focal loss of breath sounds Cardiac exam, Rhythm is regular.. No murmurs, rubs or gallops. Abdominal exam reveals normal bowel sounds, soft non tender, no masses Abdominal exam is completely benign again, even with the face of this possible diverticulitis seen on CT scan Extremities are nonedematous and both pedal pulses are present Neurologic exam is alert and oriented, no focal loss of strength or sensation Skin is without bruises or rashes Psychologically is without concerns for anxiety or depression.. Results & Data Results & Data ([facility]) Vital Signs (Past 12 Hours) Vital Signs Temp Pulse Pulse Resp BP BP Pulse Ox 04/21/22 16:19 108 H 04/21/22 15:33 98.4 F 106 H 18 99/59 L 95 04/21/22 13:48 99.3 F 04/21/22 13:32 100.4 F H 04/21/22 11:52 99.3 F 108 H 15 116/72 97 04/21/22 10:43 97.7 F 108 H 15 98/67 L 97 04/21/22 07:00 99 H 04/21/22 10:02 04/21/22 07:59 97.9 F 108 H 15 106/68 96 O2 Del Method 04/21/22 16:19 04/21/22 15:33 Room Air 04/21/22 13:48 04/21/22 13:32 04/21/22 11:52 Room Air 04/21/22 10:43 Room Air 04/21/22 07:00 04/21/22 10:02 Room Air 04/21/22 07:59 Room Air PG Care Time/CCT Total # of Minutes Spent Total Time Spent with Patient: Total time spent is greater than 50% in coordination of care (as documented) at patient's floor/unit and/or counseling patient: Coding Level of Care Code 87256 SUB INP/OBS CARE Diagnoses Sepsis A41.9 Acute hypotension I95.9 Acute diverticulitis K57.92 AML (acute myeloblastic leukemia) C92.00 Leukemia Active/Remission status: without remission Pancytopenia D61.818 Generalized weakness R53.1 Hyponatremia E87.1 Elevated troponin R77.8 Hypertension I10 Aortic stenosis I35.0 Arteriosclerotic coronary artery disease I25.10 Pulmonary nodules R91.8 (1) AML (acute myeloblastic leukemia) Leukemia Active/Remission status: without remission Qualified Code(s): C92.00 - Acute myeloblastic leukemia, not having achieved remission
[2022-04-21] MEDS: MELATONIN 3 MG TAB PO SCH (20:16)
[2022-04-22] MEDS: ACETAMINOPHEN 500 MG TAB PO PRN ×2 (00:13→10:35)
[2022-04-22] MEDS: MEROPENEM 500 MG in SYRINGE 0 ML IV SCH ×4 (02:05→19:59)
[2022-04-22 07:28] LABS: Calcium 8.2 mg/dl (8.5-10.1); Creatinine Clr Calc Pharmacy 122.7 ml/min; Est GFR (African American) 122.3 ml/min; Est GFR (Non-African American) 105.6 ml/min; Potassium 3.7 mmol/L (3.5-5.1)
[2022-04-22 07:33] LABS: Hematocrit (blood only) 23.5 % (40.1-51.0); Hemoglobin 7.9 g/dl (14.0-18.0); Mean Corpuscular Hemoglobin 29.8 pg (25.0-34.0); Mean Corpuscular Hgb Conc 33.6 g/dL (32.0-36.0); Mean Corpuscular Volume 88.7 fL (80.0-100.0); Mean Platelet Volume 9.6 fL (9.4-12.4); Nucleated RBC # (auto) 0.03 K/uL (0-0); Nucleated RBC % (auto) 3.4 %; Platelet Count 22 K/uL (130-400); RDW Coefficient of Variation 14.4 % (11.5-14.5); Red Blood Count 2.65 M/uL (4.63-6.08); White Blood Count 0.87 K/ul (4.8-10.8)
[2022-04-22 07:36] LABS: ALC (manual) 0.65 K/uL (1.2-3.4); ANC (manual) 0.04 K/uL (1.4-6.5); Anisocytosis Present; Blast # (manual) 0.17 K/uL (0-0); Blast Cells % (manual) 20 %; Lymphocytes # (manual) 0.65 K/uL (1.2-3.4); Lymphocytes % (manual) 75 %; Neutrophils # (manual) 0.04 K/uL (1.4-6.5); Neutrophils % (manual) 5 %
--- NOTE | 2022-04-22 07:54 | Hospitalist Progress Note ---
Date of Service April 22, 2022 Assessment & Plan (1) Sepsis: Plan: Presents with sepsis from ESBL ecoli uti source, with neutropenic fever, hypotension. Prior admit for sepsis w/ sacral ulceration as suspected source (looks good currently, not reddened per nursing) With ESBL E. coli septicemia and UTI as the source daptomycin plus meropenem Ur cx and BCxs with ESBL E. coli Repeat blood cultures 04/12-NGTD, 04/14-NGTD I spoke to ID on 04/21, suggested to stay the course with treatment, also to oncology which does not recommend neupogen due to blast cells remains on Dapto, Meropenem and vorconazole and acyclovir continue from home prophylaxis . despite scheduled tylenol fever persists (2) Acute hypotension: Plan: Now resolved, secondary to sepsis (3) Acute diverticulitis: Plan: with persistent fever will re image abdomen and pelvis (4) AML (acute myeloblastic leukemia): Plan: currently on chemo with decitabine, no longer on venetoclax due to low blood counts and previous infection. Prior ASA and statin discontinued when started chemotherapy -Appreciate Heme/Onc consult-plan to treat infection and then resume chemo when ANC> 500 (currently 40) however given current performance status, suspect not likely for stem cell tx candidate and would consider pursuing hospice at that point if AML not responding to treatment. BMBx 03/16 with 80% bone marrow involvement. 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 Transfusion reaction labs all negative -As per platelets-oncology recommends keep above 10 in hospital and above 15 if going home soon - no active bleeding at this time continue Neutropenic precautions, remains so on 04/21/22 still not having bone marrow recovery over the next few days, not a candidate for Neupogen due to prominent abnormal blast forms continue transfusions outpatient as needed with Dr Burgos. (6) Generalized weakness: Plan: Secondary to sepsis and infection PT/OT consults pt actually doing well on with physical movement (7) Hyponatremia: Plan: Sodium mildly low at admission. Continue salt tablets 1 g p.o. twice daily, monitor repeat/urine studies/cut back oral supplementation if needed (8) Elevated troponin: Plan: Elevated troponin-peaked at 1500, no CP, no ischemic changes on ECG. Hx CABG This is myocardial demand ischemia in setting of sepsis and mod-severe on last ECHO 01/2022 with underlying CAD/CABG (9) Hypertension: Plan: Continue home metoprolol with hold parameters Blood pressures are normal 121/70 (10) Aortic stenosis: Plan: Moderate to severe with LVEF 60 to 65% Follow volume status, clinically volume depleted on admission and now euvolemic -Follow with cardiology as an outpt (11) Arteriosclerotic coronary artery disease: Plan: With a history of CABG Discontinued aspirin when he started chemotherapy due to thrombocytopenia Discontinued statin during recent admission for rhabdomyolysis Continue Toprol-XL (12) Pulmonary nodules: Plan: Previously symptomatic, at risk for opportunistic infections Declined invasive procedures at last pulmonary follow-up, especially given low counts and high risk -Chest CT on 04/20/2022 to evaluate for infectious causes seems similar to previous wit bilateral centrilobular and perifissural micronodules in conjunction with calcified mediastinal and hilar lymph nodes suspicious for sarcoidosis Follow-up as an outpatient Plan DVT prophylaxis-no chemical or mechanical due to risk of bleeding and bruising Fevers with persistent confusion whether neutropenic fever versus drug fever versus undertreated diverticular issue Plans to d/c on Bactrim/Flagyl BID should resume levaquin collectively once off other antibiotic Admission and Anticipated Discharge Date Admission Date: April 10, 2022 Subjective pt remains without somatic symptoms, however had temps to 103 and felt poorly when he did. did repeat covid, hsv and rsv and are negative, pending lyme 04/23 still not a clear defined plan as still febrile and neutropenic Review of Systems Review of Systems: Mild distress and fatigue no headache, no visual changes no speech or swallowing issues no chest pain, pressure or palpitations no shortness of breath, cough or wheezes No focal abdominal pain or complaints no significant diarrhea or hematochezia no dysuria, hematuria or frequency no focal joint pain or swelling no back pain, CVA tenderness or radicular pain no bruising, bleeding or rashes no focal signs of weakness or numbness or altered sensation no complaints of anxiety or depression.. Physical Exam Physical Exam: The patient appeared well nourished and normally developed. I was seeing him after his fever broke Vital signs as documented. Head exam is normocephalic atraumatic Small area on his lip which appears to be from him biting his lip but does not appear to be infectious or viral Neck is without JVD, thyromegaly, or carotid bruits. Lungs are clear to auscultation, no focal loss of breath sounds Cardiac exam, Rhythm is regular.. No murmurs, rubs or gallops. Abdominal exam reveals normal bowel sounds, soft non tender, no masses Abdominal exam is completely benign again, even with the face of this possible diverticulitis seen on CT scan Extremities are nonedematous and both pedal pulses are present Neurologic exam is alert and oriented, no focal loss of strength or sensation Skin is without bruises or rashes Psychologically is without concerns for anxiety or depression.. Results & Data Results & Data ([facility]) Vital Signs (Past 12 Hours) Vital Signs Temp Pulse Pulse Resp BP Pulse Ox O2 Del Method 04/22/22 07:45 99 H 04/22/22 05:33 97.7 F 110 H 18 115/70 95 Room Air 04/22/22 01:00 100.2 F H 99 H 16 138/79 95 Room Air 04/21/22 22:00 102 H PG Care Time/CCT Total # of Minutes Spent Total Time Spent with Patient: Total time spent is greater than 50% in coordination of care (as documented) at patient's floor/unit and/or counseling patient: Coding Level of Care Code 37455 SUB INP/OBS CARE 3/50MIN Diagnoses Sepsis A41.9 Acute hypotension I95.9 Acute diverticulitis K57.92 AML (acute myeloblastic leukemia) C92.00 Leukemia Active/Remission status: without remission Pancytopenia D61.818 Generalized weakness R53.1 Hyponatremia E87.1 Elevated troponin R77.8 Hypertension I10 Aortic stenosis I35.0 Arteriosclerotic coronary artery disease I25.10 Pulmonary nodules R91.8 (1) AML (acute myeloblastic leukemia) Leukemia Active/Remission status: without remission Qualified Code(s): C92.00 - Acute myeloblastic leukemia, not having achieved remission
[2022-04-22] MEDS: CYANOCOBALAMIN (B-12) 500 MCG TABLET PO SCH (08:07)
[2022-04-22] MEDS: METOPROLOL SUCC 50MG EXT REL TAB PO SCH (08:07)
[2022-04-22] MEDS: SODIUM CHLORIDE 1 GM TABLET PO SCH ×2 (08:07→20:00)
[2022-04-22] MEDS: allopurinoL 300 MG TAB PO SCH (08:07)
[2022-04-22] MEDS: VORICONAZOLE 200 MG TABLET PO SCH ×2 (08:07→19:59)
[2022-04-22] MEDS: ACYCLOVIR 400 MG TAB PO SCH ×2 (08:07→20:00)
[2022-04-22] MEDS: ASCORBIC ACID 500 MG TAB PO SCH ×2 (08:07→19:59)
[2022-04-22 10:29] LABS: Influenza A virus by PCR Negative (Neg); Influenza B virus by PCR Negative (Neg); RSV by PCR Negative (Neg); SARS CoV2 RNA(COVID-19) Ceph NEGATIVE (Negative)
[2022-04-22] MEDS ORDERED: KETOROLAC TROMETHAMINE 15 MG/ML VIAL IV ONE (12:16)
[2022-04-22] MEDS ORDERED: SODIUM CHLORIDE 0.9% 500 ML IV SCH (12:30)
[2022-04-22] MEDS: DAPTOmycin 450 MG in SYRINGE 0 ML IV SCH (18:07)
[2022-04-22] MEDS: MELATONIN 3 MG TAB PO SCH (20:00)
[2022-04-23] MEDS: MEROPENEM 500 MG in SYRINGE 0 ML IV SCH ×4 (02:12→20:51)
[2022-04-23 07:21] LABS: Hematocrit (blood only) 22.3 % (40.1-51.0); Hemoglobin 7.7 g/dl (14.0-18.0); Mean Corpuscular Hemoglobin 29.7 pg (25.0-34.0); Mean Corpuscular Hgb Conc 34.5 g/dL (32.0-36.0); Mean Corpuscular Volume 86.1 fL (80.0-100.0); Mean Platelet Volume 9.7 fL (9.4-12.4); Platelet Count 17 K/uL (130-400); RDW Coefficient of Variation 14.4 % (11.5-14.5); RDW Standard Deviation 44.7 fL (36.4-46.3); Red Blood Count 2.59 M/uL (4.63-6.08); White Blood Count 1.05 K/ul (4.8-10.8)
[2022-04-23 07:29] LABS: BUN Creatinine Ratio 31.9 (10-20); Calcium 7.6 mg/dl (8.5-10.1); Creatinine Clr Calc Pharmacy 125.3 ml/min; Est GFR (African American) 123.4 ml/min; Est GFR (Non-African American) 106.5 ml/min; Potassium 3.9 mmol/L (3.5-5.1)
--- NOTE | 2022-04-23 07:43 | Hospitalist Progress Note ---
Date of Service April 23, 2022 Assessment & Plan (1) Sepsis: Plan: Presents with sepsis from ESBL ecoli uti source, with neutropenic fever, hypotension. Prior admit for sepsis w/ sacral ulceration as suspected source (looks good currently, not reddened per nursing) With ESBL E. coli septicemia and UTI as the source daptomycin plus meropenem Ur cx and BCxs with ESBL E. coli Repeat blood cultures 04/12-NGTD, 04/14-NGTD I spoke to ID on 04/21, suggested to stay the course with treatment, also to oncology which does not recommend neupogen due to blast cells remains on Dapto, Meropenem and vorconazole and acyclovir continue from home prophylaxis . scheduled tylenol follow fever curve (2) Acute hypotension: Plan: Now resolved, secondary to sepsis (3) Acute diverticulitis: Plan: with persistent fever will re image abdomen and pelvis (4) AML (acute myeloblastic leukemia): Plan: currently on chemo with decitabine, no longer on venetoclax due to low blood counts and previous infection. Prior ASA and statin discontinued when started chemotherapy -Appreciate Heme/Onc consult-plan to treat infection and then resume chemo when ANC> 500 (currently 40) however given current performance status, suspect not likely for stem cell tx candidate and would consider pursuing hospice at that point if AML not responding to treatment. BMBx 03/16 with 80% bone marrow involvement. 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 Transfusion reaction labs all negative -As per platelets-oncology recommends keep above 10 in hospital and above 15 if going home soon - no active bleeding at this time continue Neutropenic precautions, remains so on 04/21/22 still not having bone marrow recovery, not a candidate for Neupogen due to prominent abnormal blast forms continue transfusions outpatient as needed with Dr Burgos. (6) Generalized weakness: Plan: Secondary to sepsis and infection PT/OT consults pt actually doing well on with physical movement (7) Hyponatremia: Plan: Sodium mildly low at admission. Continue salt tablets 1 g p.o. twice daily, monitor repeat/urine studies/cut back oral supplementation if needed (8) Elevated troponin: Plan: Elevated troponin-peaked at 1500, no CP, no ischemic changes on ECG. Hx CABG This is myocardial demand ischemia in setting of sepsis and mod-severe on last ECHO 01/2022 with underlying CAD/CABG (9) Hypertension: Plan: Continue home metoprolol with hold parameters Blood pressures are normal 121/70 (10) Aortic stenosis: Plan: Moderate to severe with LVEF 60 to 65% Follow volume status, clinically volume depleted on admission and now euvolemic -Follow with cardiology as an outpt (11) Arteriosclerotic coronary artery disease: Plan: With a history of CABG Discontinued aspirin when he started chemotherapy due to thrombocytopenia Discontinued statin during recent admission for rhabdomyolysis Continue Toprol-XL (12) Pulmonary nodules: Plan: Previously symptomatic, at risk for opportunistic infections Declined invasive procedures at last pulmonary follow-up, especially given low counts and high risk -Chest CT on 04/20/2022 to evaluate for infectious causes seems similar to previous wit bilateral centrilobular and perifissural micronodules in conjunction with calcified mediastinal and hilar lymph nodes suspicious for sarcoidosis Follow-up as an outpatient Plan DVT prophylaxis-no chemical or mechanical due to risk of bleeding and bruising Fevers with persistent confusion whether neutropenic fever versus drug fever versus undertreated diverticular issue Plans to d/c on Bactrim/Flagyl BID should resume levaquin collectively once off other antibiotic Admission and Anticipated Discharge Date Admission Date: April 10, 2022 Subjective pt remains without somatic symptoms, however had temps to 103.i on 04/22 at 11 am and felt poorly when he did. did repeat covid, hsv and rsv and are negative, negative lyme 04/23 now no fever for over 24 hours Review of Systems Review of Systems: Mild distress and fatigue no headache, no visual changes no speech or swallowing issues no chest pain, pressure or palpitations no shortness of breath, cough or wheezes No focal abdominal pain or complaints no significant diarrhea or hematochezia no dysuria, hematuria or frequency no focal joint pain or swelling no back pain, CVA tenderness or radicular pain no bruising, bleeding or rashes no focal signs of weakness or numbness or altered sensation no complaints of anxiety or depression.. Physical Exam Physical Exam: The patient appeared well nourished and normally developed. I was seeing him after his fever broke Vital signs as documented. Head exam is normocephalic atraumatic Small area on his lip which appears to be from him biting his lip but does not appear to be infectious or viral Neck is without JVD, thyromegaly, or carotid bruits. Lungs are clear to auscultation, no focal loss of breath sounds Cardiac exam, Rhythm is regular.. No murmurs, rubs or gallops. Abdominal exam reveals normal bowel sounds, soft non tender, no masses Abdominal exam is completely benign again, even with the face of this possible diverticulitis seen on CT scan Extremities are nonedematous and both pedal pulses are present Neurologic exam is alert and oriented, no focal loss of strength or sensation Skin is without bruises or rashes Psychologically is without concerns for anxiety or depression.. Results & Data Results & Data ([facility]) Vital Signs (Past 12 Hours) Vital Signs Temp Pulse Pulse Resp BP Pulse Ox O2 Del Method 04/23/22 03:21 98.8 F 108 H 16 116/72 96 Room Air 04/23/22 03:21 98.8 F 86 16 116/72 96 Room Air 04/22/22 22:00 102 H 04/22/22 22:18 97.7 F 102 H 18 104/63 98 Room Air PG Care Time/CCT Total # of Minutes Spent Total Time Spent with Patient: Total time spent is greater than 50% in coordination of care (as documented) at patient's floor/unit and/or counseling patient: Coding Level of Care Code 58481 SUB INP/OBS CARE 2/35MIN Diagnoses Sepsis A41.9 Acute hypotension I95.9 Acute diverticulitis K57.92 AML (acute myeloblastic leukemia) C92.00 Leukemia Active/Remission status: without remission Pancytopenia D61.818 Generalized weakness R53.1 Hyponatremia E87.1 Elevated troponin R77.8 Hypertension I10 Aortic stenosis I35.0 Arteriosclerotic coronary artery disease I25.10 Pulmonary nodules R91.8 (1) AML (acute myeloblastic leukemia) Leukemia Active/Remission status: without remission Qualified Code(s): C92.00 - Acute myeloblastic leukemia, not having achieved remission
[2022-04-23 07:46] LABS: Lyme Ab IgG w/WB Rflx Negative (Negative); Lyme Ab IgM w/WB Rflx Negative (Negative)
[2022-04-23] MEDS: SODIUM CHLORIDE 1 GM TABLET PO SCH ×2 (07:48→20:45)
[2022-04-23] MEDS: VORICONAZOLE 200 MG TABLET PO SCH ×2 (07:48→20:45)
[2022-04-23] MEDS: ACYCLOVIR 400 MG TAB PO SCH ×2 (07:48→20:44)
[2022-04-23] MEDS: ASCORBIC ACID 500 MG TAB PO SCH ×2 (07:48→20:44)
[2022-04-23] MEDS: METOPROLOL SUCC 50MG EXT REL TAB PO SCH (07:49)
[2022-04-23] MEDS: CYANOCOBALAMIN (B-12) 500 MCG TABLET PO SCH (07:49)
[2022-04-23] MEDS: allopurinoL 300 MG TAB PO SCH (07:49)
[2022-04-23 08:33] LABS: ALC (manual) 0.66 K/uL (1.2-3.4); ANC (manual) 0.01 K/uL (1.4-6.5); Anisocytosis Present; Blast # (manual) 0.35 K/uL (0-0); Blast Cells % (manual) 33 %; Lymphocytes # (manual) 0.66 K/uL (1.2-3.4); Lymphocytes % (manual) 63 %; Monocytes # (manual) 0.02 K/uL (0.24-0.82); Monocytes % (manual) 2 %; Myelocytes # (manual) 0.01 K/uL (0-0); Myelocytes % (manual) 1 %; Neutrophils # (manual) 0.01 K/uL (1.4-6.5); Neutrophils % (manual) 1 %
[2022-04-23] MEDS: DAPTOmycin 450 MG in SYRINGE 0 ML IV SCH (17:33)
[2022-04-23 18:27] LABS: Aspergillus Ag Index 0.06 (<0.50); Aspergillus Antigen, Serum Not Detected (Not Detected); Fungitell (1-3)-B-D-Glucan <31 pg/mL
[2022-04-23] MEDS: MELATONIN 3 MG TAB PO SCH (20:50)
[2022-04-24] MEDS: MEROPENEM 500 MG in SYRINGE 0 ML IV SCH ×3 (02:10→13:15)
[2022-04-24 08:20] LABS: Hematocrit (blood only) 23.7 % (40.1-51.0); Hemoglobin 8.1 g/dl (14.0-18.0); Mean Corpuscular Hemoglobin 29.8 pg (25.0-34.0); Mean Corpuscular Hgb Conc 34.2 g/dL (32.0-36.0); Mean Corpuscular Volume 87.1 fL (80.0-100.0); Nucleated RBC # (auto) 0.02 K/uL (0-0); Nucleated RBC % (auto) 1.4 %; Platelet Count 13 K/uL (130-400); RDW Coefficient of Variation 14.5 % (11.5-14.5); RDW Standard Deviation 45.5 fL (36.4-46.3); Red Blood Count 2.72 M/uL (4.63-6.08); White Blood Count 1.43 K/ul (4.8-10.8)
[2022-04-24] MEDS: ASCORBIC ACID 500 MG TAB PO SCH (08:32)
[2022-04-24] MEDS: METOPROLOL SUCC 50MG EXT REL TAB PO SCH (08:32)
[2022-04-24] MEDS: VORICONAZOLE 200 MG TABLET PO SCH (08:32)
[2022-04-24] MEDS: SODIUM CHLORIDE 1 GM TABLET PO SCH (08:32)
[2022-04-24] MEDS: allopurinoL 300 MG TAB PO SCH (08:32)
[2022-04-24] MEDS: CYANOCOBALAMIN (B-12) 500 MCG TABLET PO SCH (08:32)
[2022-04-24] MEDS: ACYCLOVIR 400 MG TAB PO SCH (08:33)
[2022-04-24 08:46] LABS: BUN Creatinine Ratio 22.9 (10-20); Calcium 8.4 mg/dl (8.5-10.1); Creatinine Clr Calc Pharmacy 122.7 ml/min; Est GFR (African American) 122.3 ml/min; Est GFR (Non-African American) 105.6 ml/min; Potassium 4.4 mmol/L (3.5-5.1)
[2022-04-24 09:02] LABS: ALC (manual) 1.03 K/uL (1.2-3.4); ANC (manual) 0.04 K/uL (1.4-6.5); Blast # (manual) 0.29 K/uL (0-0); Blast Cells % (manual) 20 %; Lymphocytes # (manual) 1.03 K/uL (1.2-3.4); Lymphocytes % (manual) 72 %; Monocytes # (manual) 0.04 K/uL (0.24-0.82); Monocytes % (manual) 3 %; Myelocytes # (manual) 0.03 K/uL (0-0); Myelocytes % (manual) 2 %; Neutrophils # (manual) 0.04 K/uL (1.4-6.5); Neutrophils % (manual) 3 %
[2022-04-24] MEDS ORDERED: OPTIRAY 320 500ml IV ONE (11:44)
--- NOTE | 2022-04-24 12:56 | CT Scan Report ---
CT ANGIOGRAPHY OF THE CHEST, PULMONARY EMBOLUS PROTOCOL CLINICAL HISTORY: Fever. Shortness of breath. Evaluate for pulmonary embolus. COMPARISON STUDY: Chest CT April 20, 2022. TECHNIQUE: Following IV administration of 120 mL of Optiray, helical axial images of the chest were o btained utilizing the pulmonary embolus protocol. Maximal intensity projections and sagittal and cor onal reformats were viewed on an independent 3D workstation. IV contrast was administered without co mplication. Automated exposure control was utilized for the study. A dose lowering technique was ut ilized adhering to the principles of ALARA. CT DOSE: 492.81 mGycm FINDINGS: No central or lobar pulmonary emboli are identified. Segmental and subsegmental pulmonary arteries are suboptimally assessed due to respiratory motion. There are median sternotomy wires and p ostoperative findings from bypass grafting. Extensive coronary artery calcification is present. There is mild cardiomegaly. No thoracic aortic dissection. Partially calcified mediastinal and bilateral h ilar lymph nodes are again noted. Several nodes are mildly enlarged. Lymphadenopathy is unchanged sin ce CT of November 22, 2021. Trace left pleural effusion has decreased in size since prior chest CT. Ther e is no pneumothorax. Upper lobe predominant centrilobular nodules are noted. No confluent consolidat ion is present. Lungs are suboptimally assessed due to respiratory motion. A right renal cyst is part ially imaged. IMPRESSION: 1. No pulmonary emboli identified although segmental and subsegmental pulmonary arteries suboptimally assessed due to respiratory motion. 2. No change in upper lobe predominant centrilobular nodules. These are nonspecific and differential considerations include infectious, granulomatous and hypersensitivity reaction etiologies. 3. Slight decrease in size of a trace left pleural effusion. 4. No change in a mediastinal and bilateral hilar lymphadenopathy suggestive of a granulomatous proce ss. ACT 112: Negative or not required by law. Electronically signed by: Carlos Ozuna M.D. 04/24/2022 12:53 PM
--- NOTE | 2022-04-24 16:02 | Communication Note ---
Date of Service: April 24, 2022 Pt awaiting decisions from [facility]. Does not want to further conversation about alternative to if BMT cannot be offered until he knows for sure. He has no other acute IP pall med needs.I will therefore sign off but remain available for re engagement if further assistance is needed. If patient is sent to [facility] or [facility], please make sure he is referred to their Palliative Medicine team for further follow up. TS 8min/chart check Patient not seen/NO charge submitted Brandi Alfaro DNP Clinical Director, Palliative Medicine
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
[2022-04-25 18:32] LABS: Angiotensin Converting Enzyme 32 U/L (9-67); Histoplasma H Band Ab Negative (Negative); Histoplasma M Band Ab Negative (Negative)
== END 2022-04-24 16:50 | disposition home health service (06) | DRG 871 ==
LOC: ED 11:38 → EDINP 17:29 → SUATTDRO 17:29 → 2W 20:43

== ENCOUNTER 2022-05-01 19:48 | Inpatient (IN) ==
[2022-05-01 21:00] LABS: INR 1.2 (0.9-1.1); Partial Thromboplastin Ratio 1.1; Prothrombin Time 12.4 Seconds (9.0-12.0)
[2022-05-01 21:06] LABS: Albumin Globulin Ratio 0.9 (0.9-2); Albumin Level 2.8 gm/dl (3.4-5.0); BUN Creatinine Ratio 25.5 (10-20); Bilirubin,Total 0.3 mg/dl (0.2-1.0); Calcium 8.5 mg/dl (8.5-10.1); Creatinine Clr Calc Pharmacy 107.1 ml/min; Est GFR (African American) 115.7 ml/min; Est GFR (Non-African American) 99.8 ml/min; Globulin 3.2 gm/dl (2.5-4.0); Potassium 4.4 mmol/L (3.5-5.1)
[2022-05-01 22:15] LABS: Hematocrit (blood only) 21.5 % (40.1-51.0); Hemoglobin 7.3 g/dl (14.0-18.0); Mean Corpuscular Hemoglobin 29.8 pg (25.0-34.0); Mean Corpuscular Volume 87.8 fL (80.0-100.0); Nucleated RBC # (auto) 0.02 K/uL (0-0); Nucleated RBC % (auto) 0.9 %; Platelet Count 5 K/uL (130-400); Platelet Estimate Signific. Decreased (Normal); RDW Coefficient of Variation 14.8 % (11.5-14.5); RDW Standard Deviation 46.1 fL (36.4-46.3); Red Blood Count 2.45 M/uL (4.63-6.08); White Blood Count 2.19 K/ul (4.8-10.8)
[2022-05-01] MEDS ORDERED: SODIUM CHLORIDE 0.9% 250 ML IV PRN (22:24)
[2022-05-01 22:41] LABS: Lymphocytes # (auto) 0.51 K/uL (1.2-3.4); Lymphocytes % (auto) 23.3 %; Monocytes % (auto) 45.7 %; Neutrophils # (auto) 0.68 K/uL (1.4-6.5)
--- NOTE | 2022-05-01 23:24 | History & Physical Report ---
Date of Service May 01, 2022 Assessment & Plan (1) Severe thrombocytopenia: (2) Pancytopenia: (3) Mood disorder: (4) AML (acute myeloblastic leukemia): (5) Aortic stenosis: (6) Arteriosclerotic coronary artery disease: (7) Dyslipidemia: (8) Hypertension: (9) Past myocardial infarction: (10) History of coronary artery bypass graft x 3: Plan Severe thrombocytopenia- Platelets 5 on admission Transfusion ordered by ED Repeat laboratories in a.m. AML/pancytopenia- WBC 2.19 and hemoglobin 7.3, are within patient ranges Follow serially Continue prophylaxis with: Acyclovir 40 mg p.o. twice daily, voriconazole 200 mg p.o. twice daily Patient has recently finished GI infection treatment with levofloxacin 500 mg daily for 7 days and metronidazole 500 mg p.o. twice daily for 5 days CAD/hypertension/history of CABG- Continue nitroglycerin sublingual as needed, and metoprolol succinate extended release 25 mg p.o. daily will be changed to 12.5 mg p.o. twice daily with hold parameters Insomnia- Continue melatonin 6 mg p.o. at bedtime Gout- Continue allopurinol 3 mg daily History of Present Illness Chief Complaint: The patient presents to the emergency department as a referral from his ou tpatient physician due to low platelets needing transfusion Primary Care Provider: Dewayne Stout MD The patient is a 76-year-old male with past medical history including severe thrombocytopenia, pancytopenia, rhabdomyolysis, pulmonary nodules, mood disorder, prolonged QT interval, AML, acute diverticulitis, aortic stenosis, CAD, BPH, carotid artery disease, dyslipidemia, status post CABG x3, hypertension, past IL, tubulovillous adenoma of the colon. Patient was for the emergency department for admission for transfusion of platelets, after being found to have low platelets in the outpatient setting.. Abnormal laboratories: WBC 2.19, hemoglobin 7.3, hematocrit 21.5, platelets 5, albumin 2.8 Allergies Allergy/AdvReac Type Severity Reaction Status Date / Time diphenhydramine AdvReac Severe ITCHING Verified 04/28/22 12:50 [From Benadryl] losartan AdvReac Intermediate FATIGUE, Verified 04/28/22 12:50 CHEST PAIN oxycodone [From Percocet] AdvReac Intermediate Confusion Verified 04/28/22 12:50 lisinopril AdvReac Mild FATIGUE Verified 04/28/22 12:50 Home Medications Medication Instructions Recorded Confirmed Type ascorbic acid (vitamin C) 500 mg 500 mg PO BID 02/11/19 05/01/22 History tablet nitroglycerin 0.4 mg sublingual 0.4 mg sublingual Q5M PRN Chest 02/11/19 05/01/22 History tablet Pain #1 tab cyanocobalamin (vitamin B-12) 1,000 mcg PO QAM 12/12/21 05/01/22 History 1,000 mcg capsule ondansetron 4 mg disintegrating 4 mg PO Q6H PRN Nausea 12/12/21 05/01/22 History tablet polyethylene glycol 3350 17 gram 17 g PO DAILY PRN Constipation 12/12/21 05/01/22 History oral powder packet levofloxacin 500 mg tablet 500 mg PO QAM #7 tabs 12/15/21 05/01/22 Rx voriconazole 200 mg tablet (Vfend) 200 mg PO BID #14 tabs 01/19/22 05/01/22 Rx allopurinol 300 mg tablet 300 mg PO QAM #90 tabs 02/01/22 05/01/22 Rx melatonin 3 mg tablet 6 mg PO HS #60 tabs 02/10/22 05/01/22 Rx metronidazole 500 mg tablet 500 mg PO BID #11 tabs 04/18/22 05/01/22 Rx metoprolol succinate 25 mg 25 mg PO DAILY #30 tabs 04/27/22 05/01/22 Rx tablet,extended release 24 hr acyclovir 400 mg tablet 400 mg PO AMHS 05/01/22 05/01/22 History sodium chloride 1,000 mg soluble 1,000 mg PO BID 05/01/22 05/01/22 History tablet Past Med/Surg History Medical History Advanced care planning/counseling discussion AML (acute myeloblastic leukemia) Aortic stenosis Arteriosclerotic coronary artery disease Benign enlargement of prostate Carotid artery plaque Dyslipidemia Hypertension Hypotension Palliative care encounter Past myocardial infarction Sepsis Syncope Tachycardia Tubulovillous adenoma of colon Surgical History History of cardiac cath History of colonoscopy History of coronary artery bypass graft x 3 History of hemorrhoidectomy S/P CABG x 3 Family History Brother Coronary heart disease Father Myocardial infarction Denies family history of Ovarian cancer Prostate cancer Breast cancer Colorectal cancer Lung disease Social History Smoking Status: Former smoker Tobacco Type: Cigarettes Age Started Using Tobacco: 14; Age Quit Using Tobacco: 21; packs per day: 1; Second Hand Exposure: No; Hx Alcohol Use: No Hx Substance Use: No Preferred Language: Slovak Communication Ability: Effective Visual Impairment: Limited Hearing Ability: Use of Hearing Aid Drug And Alcohol Counselor Required: No Beliefs That Will Affect Care: None marital status: Current Living Situation: Spouse Current Living Situation Comment: Lives with in a house has a hospital bed downstairs current occupational status: employed 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 How many Children do You have: 4 Feels Safe at Home: Yes Childhood Exposure to Second-Hand Smoke: No caffeine: Yes (cup of coffee in morning ) Dental Care, Regularly: No Physical Activity Frequency: Daily Seatbelt Use: always Sunscreen Use: Yes Assistive Devices: Hospital Bed and Walker Review of Systems Review of Systems: The patient denies chest pain, palpitations, shortness of breath, dyspnea on exertion, cough, lower extremity swelling, sore throat, fevers, chills, sweats, weight change, fatigue, nausea, vomiting, diarrhea , constipation, abdominal pain, pelvic pain, blood in urine or stool, dysuria, urinary frequency or urgency, lightheadedness, dizziness, headache, memory loss, loss of consciousness, imbalance, focal or generalized weakness, numbness or tingling in arms or legs, generalized arthralgias or myalgias, back or neck pain, or night sweats. The review of systems is otherwise negative other than for that already noted above, and at least 10 systems have been reviewed. Physical Exam Physical Exam: The patient is awake, alert and oriented 3, well developed and well nourished, normocephalic and atraumatic, lying in bed and in no acute distress. HEENT--PERRL, EOMI, mucous membranes and oropharynx dry. Neck--supple. No JVD. No bruits. Thyroid normal, trachea midline, no adenopathy. Heart--normal S1 and S2. No murmurs, rubs or gallops. Lungs--clear bilaterally, no respiratory distress, no accessory muscle use. Abdomen--normal bowel sounds and soft. Nontender. Nondistended, no hernias or masses, no organomegaly. Extremities--no cyanosis or clubbing. No edema. There are good distal pulses b/l. Dermatologic--normal skin turgor, normal color, no abnormal lymph nodes, no rash. Neurologic--cranial nerves II through XII grossly intact. Rheumatologic--normal range of motion. Psychiatric--normal affect. Results & Data Results & Data ([facility]) Vital Signs (Past 12 Hours) Vital Signs Temp Pulse Resp BP Pulse Ox O2 Del Method 05/01/22 19:57 37.5 C 125 H 20 103/60 96 Room Air Laboratory Results Laboratory Results WBC 2.08 K/ul (4.8-10.8) L 05/02/22 04:32 RBC 2.12 M/uL (4.63-6.08) L 05/02/22 04:32 Hgb 6.3 g/dl (14.0-18.0) L* 05/02/22 04:32 Hct 18.3 % (40.1-51.0) L* 05/02/22 04:32 MCV 86.3 fL (80.0-100.0) 05/02/22 04:32 MCH 29.7 pg (25.0-34.0) 05/02/22 04:32 MCHC 34.4 g/dL (32.0-36.0) 05/02/22 04:32 RDW Std Deviation 45.1 fL (36.4-46.3) 05/02/22 04:32 RDW Coeff of Marty 14.6 % (11.5-14.5) H 05/02/22 04:32 Plt Count 22 K/uL (130-400) L* D 05/02/22 04:32 MPV 11.4 fL (9.4-12.4) 05/02/22 04:32 Immature Gran % (Auto) 0.0 % 05/01/22 20:20 Neut % (Auto) 31.0 % 05/01/22 20:20 Lymph % (Auto) 23.3 % 05/01/22 20:20 [place] % (Auto) 45.7 % 05/01/22 20:20 Eos % (Auto) 0.0 % 05/01/22 20:20 Baso % (Auto) 0.0 % 05/01/22 20:20 Neut # (Auto) 0.68 K/uL (1.4-6.5) L* 05/01/22 20:20 Lymph # (Auto) 0.51 K/uL (1.2-3.4) L 05/01/22 20:20 [place] # (Auto) 1.00 K/uL (0.24-0.82) H 05/01/22 20:20 Eos # (Auto) 0.00 K/uL (0-0.50) 05/01/22 20:20 Baso # (Auto) 0.00 K/uL (0-0.2) 05/01/22 20:20 Immature Gran # (Auto) 0.00 K/uL (0.00-0.02) 05/01/22 20:20 Absolute Nucleated RBC 0.02 K/uL (0-0) H 05/01/22 20:20 Nucleated RBC % (auto) 0.9 % 05/01/22 20:20 Neutrophils % (Manual) 2 % 05/02/22 04:32 Lymphocytes % (Manual) 61 % 05/02/22 04:32 Monocytes % (Manual) 2 % 05/02/22 04:32 Blast Cells % (Manual) 35 % 05/02/22 04:32 Neutrophils # (Manual) 0.04 K/uL (1.4-6.5) L 05/02/22 04:32 Total Absolute Neuts 0.04 K/uL (1.4-6.5) L* 05/02/22 04:32 Lymphocytes # (Manual) 1.27 K/uL (1.2-3.4) 05/02/22 04:32 Total Abs Lymphocytes 1.27 K/uL (1.2-3.4) 05/02/22 04:32 Monocytes # (Manual) 0.04 K/uL (0.24-0.82) L 05/02/22 04:32 Blast Cells # (Man) 0.73 K/uL (0-0) H 05/02/22 04:32 Platelet Estimate Signific. Decreased (Normal) L 05/01/22 20:20 Polychromasia 1+ 05/02/22 04:32 Ovalocytes 1+ 05/02/22 04:32 PT 12.4 Seconds (9.0-12.0) H 05/01/22 20:20 INR 1.2 (0.9-1.1) H 05/01/22 20:20 APTT 31.0 Seconds (21.0-31.0) 05/01/22 20:20 PTT Ratio 1.1 05/01/22 20:20 Sodium 130 mmol/L (136-145) L 05/02/22 04:32 Potassium 3.9 mmol/L (3.5-5.1) 05/02/22 04:32 Chloride 100 mmol/L (98-107) 05/02/22 04:32 Carbon Dioxide 22 mmol/L (21-32) 05/02/22 04:32 Anion Gap 8 (3-11) 05/02/22 04:32 BUN 14 mg/dl (6-23) 05/02/22 04:32 Creatinine 0.52 mg/dl (0.6-1.4) L 05/02/22 04:32 Est Cr Clr Drug Dosing 113.3 ml/min 05/02/22 04:32 Est GFR ( Amer) 118.4 ml/min 05/02/22 04:32 Est GFR (Non-Af Amer) 102.1 ml/min 05/02/22 04:32 BUN/Creatinine Ratio 26.9 (10-20) H 05/02/22 04:32 Glucose 108 mg/dl (70-99(Fasting)) H 05/02/22 04:32 Calcium 8.3 mg/dl (8.5-10.1) L 05/02/22 04:32 Magnesium 1.6 mg/dl (1.7-2.4) L 05/02/22 04:32 Total Bilirubin 0.4 mg/dl (0.2-1.0) 05/02/22 04:32 AST 11 U/L (13-39) L 05/02/22 04:32 ALT 5 U/L (7-52) L 05/02/22 04:32 Alkaline Phosphatase 47 U/L (34-104) 05/02/22 04:32 Total Protein 5.4 gm/dl (6.0-8.3) L 05/02/22 04:32 Albumin 2.5 gm/dl (3.4-5.0) L 05/02/22 04:32 Globulin 2.9 gm/dl (2.5-4.0) 05/02/22 04:32 Albumin/Globulin Ratio 0.9 (0.9-2) 05/02/22 04:32 SARS-CoV-2, RNA, NAAT NEGATIVE (NEGATIVE) 05/01/22 Unknown Blood Type A Positive 05/01/22 20:10 Antibody Screen NEGATIVE 05/01/22 20:10 Crossmatch See Detail 05/01/22 20:10 Code Status & VTE Plan Code Status Full code VTE Prophylaxis Plan VTE Prophylaxis will be ordered: Yes PG Care Time/CCT Total # of Minutes Spent Total Time Spent with Patient: Total time spent is greater than 50% in coordination of care (as documented) at patient's floor/unit and/or counseling patient: Coding Level of Care Code 36099 INT INP/OBS CARE 3/75MIN Diagnoses Severe thrombocytopenia D69.6 Pancytopenia D61.818 Mood disorder F39 AML (acute myeloblastic leukemia) C92.00 Leukemia Active/Remission status: without remission Aortic stenosis I35.0 Arteriosclerotic coronary artery disease I25.10 Dyslipidemia E78.5 Hypertension I10 Past myocardial infarction I25.2 History of coronary artery bypass graft x 3 Z95.1 (1) AML (acute myeloblastic leukemia) Leukemia Active/Remission status: without remission Qualified Code(s): C92.00 - Acute myeloblastic leukemia, not having achieved remission
[2022-05-01] MEDS ORDERED: ACYCLOVIR 400 MG TAB PO ONE (23:28)
[2022-05-01] MEDS ORDERED: VORICONAZOLE 200 MG TABLET PO ONE (23:29)
[2022-05-02] MEDS ORDERED: ONDANSETRON INJ 2 MG/ML 2 ML VIAL IV PRN (00:46)
[2022-05-02] MEDS ORDERED: POLYETHYLENE (MIRALAX) 17 GM PACK PO PRN (00:46)
[2022-05-02] MEDS ORDERED: ONDANSETRON 4 MG OD TAB PO PRN (00:46)
[2022-05-02] MEDS ORDERED: ACETAMINOPHEN 325 MG TAB PO PRN (00:46)
[2022-05-02] MEDS ORDERED: NITROGLYCERIN SL 0.4 MG/TAB TAB SL PRN (00:46)
[2022-05-02 05:23] LABS: Hematocrit (blood only) 18.3 % (40.1-51.0); Hemoglobin 6.3 g/dl (14.0-18.0); Mean Corpuscular Hemoglobin 29.7 pg (25.0-34.0); Mean Corpuscular Hgb Conc 34.4 g/dL (32.0-36.0); Mean Corpuscular Volume 86.3 fL (80.0-100.0); Mean Platelet Volume 11.4 fL (9.4-12.4); Platelet Count 22 K/uL (130-400); RDW Coefficient of Variation 14.6 % (11.5-14.5); RDW Standard Deviation 45.1 fL (36.4-46.3); Red Blood Count 2.12 M/uL (4.63-6.08); White Blood Count 2.08 K/ul (4.8-10.8)
[2022-05-02 05:28] LABS: Albumin Globulin Ratio 0.9 (0.9-2); Albumin Level 2.5 gm/dl (3.4-5.0); BUN Creatinine Ratio 26.9 (10-20); Bilirubin,Total 0.4 mg/dl (0.2-1.0); Calcium 8.3 mg/dl (8.5-10.1); Creatinine Clr Calc Pharmacy 113.3 ml/min; Est GFR (African American) 118.4 ml/min; Est GFR (Non-African American) 102.1 ml/min; Globulin 2.9 gm/dl (2.5-4.0); Magnesium 1.6 mg/dl (1.7-2.4); Potassium 3.9 mmol/L (3.5-5.1); Total Protein 5.4 gm/dl (6.0-8.3)
[2022-05-02 05:51] LABS: ALC (manual) 1.27 K/uL (1.2-3.4); ANC (manual) 0.04 K/uL (1.4-6.5); Blast # (manual) 0.73 K/uL (0-0); Blast Cells % (manual) 35 %; Lymphocytes # (manual) 1.27 K/uL (1.2-3.4); Lymphocytes % (manual) 61 %; Monocytes # (manual) 0.04 K/uL (0.24-0.82); Monocytes % (manual) 2 %; Neutrophils # (manual) 0.04 K/uL (1.4-6.5); Neutrophils % (manual) 2 %; Ovalocytes 1+; Polychromasia 1+
[2022-05-02] MEDS ORDERED: allopurinoL 300 MG TAB PO SCH (09:00)
[2022-05-02] MEDS ORDERED: ACYCLOVIR 400 MG TAB PO SCH (09:00)
[2022-05-02] MEDS ORDERED: METOPROLOL SUCC 25MG EXT REL TAB PO SCH (09:00)
[2022-05-02] MEDS ORDERED: ASCORBIC ACID 500 MG TAB PO SCH (09:00)
[2022-05-02] MEDS ORDERED: CYANOCOBALAMIN (B-12) 500 MCG TABLET PO SCH (09:00)
[2022-05-02] MEDS ORDERED: VORICONAZOLE 200 MG TABLET PO SCH (09:00)
[2022-05-02] MEDS ORDERED: SODIUM CHLORIDE 1 GM TABLET PO SCH (09:00)
[2022-05-02 10:45] LABS: Hematocrit (blood only) 18.6 % (40.1-51.0); Hemoglobin 6.3 g/dl (14.0-18.0); Mean Corpuscular Hemoglobin 30.3 pg (25.0-34.0); Mean Corpuscular Hgb Conc 33.9 g/dL (32.0-36.0); Mean Corpuscular Volume 89.4 fL (80.0-100.0); Mean Platelet Volume 8.9 fL (9.4-12.4); Platelet Count 15 K/uL (130-400); RDW Coefficient of Variation 14.8 % (11.5-14.5); RDW Standard Deviation 46.9 fL (36.4-46.3); Red Blood Count 2.08 M/uL (4.63-6.08); White Blood Count 1.87 K/ul (4.8-10.8)
[2022-05-02 15:20] LABS: Hematocrit (blood only) 21.5 % (40.1-51.0); Hemoglobin 7.5 g/dl (14.0-18.0)
--- NOTE | 2022-05-02 15:51 | Discharge Summary ---
Date of Service May 02, 2022 Admission HPI Per Admitting Provider The patient is a 76-year-old male with past medical history including severe thrombocytopenia, pancytopenia, rhabdomyolysis, pulmonary nodules, mood disorder, prolonged QT interval, AML, acute diverticulitis, aortic stenosis, CAD, BPH, carotid artery disease, dyslipidemia, status post CABG x3, hypertension, past KS, tubulovillous adenoma of the colon. Patient was for the emergency department for admission for transfusion of platelets, after being found to have low platelets in the outpatient setting.. Abnormal laboratories: WBC 2.19, hemoglobin 7.3, hematocrit 21.5, platelets 5, albumin 2.8 Principal Diagnosis pancytopenia Discharge Exam The patient is awake, alert and oriented 3, well developed and well nourished, normocephalic and atraumatic, lying in bed and in no acute distress. HEENT--PERRL, EOMI, mucous membranes and oropharynx mildly dry Neck--supple. No JVD. No bruits. Thyroid normal, trachea midline, no adenopathy. Heart--normal S1 and S2. No murmurs, rubs or gallops. Lungs--clear bilaterally, no respiratory distress, no accessory muscle use. Abdomen--normal bowel sounds and soft. Mild epigastric and left sided abdominal pain Extremities--no cyanosis or clubbing. No edema. Dermatologic--normal skin turgor, normal color, no abnormal lymph nodes, no rash. Neurologic--cranial nerves II through XII grossly intact. Rheumatologic--normal range of motion. Psychiatric--normal affect. Discharge Data Allergies Allergy/AdvReac Type Severity Reaction Status Date / Time diphenhydramine AdvReac Severe ITCHING Verified 04/28/22 12:50 [From Benadryl] losartan AdvReac Intermediate FATIGUE, Verified 04/28/22 12:50 CHEST PAIN oxycodone [From Percocet] AdvReac Intermediate Confusion Verified 04/28/22 12:50 lisinopril AdvReac Mild FATIGUE Verified 04/28/22 12:50 Consultations 05/01/22 22:49 ED Decision to Admit Stat 05/02/22 00:46 Consult Hematology Routine Hospital Course (1) Pancytopenia: Transfusion dependent AMP patient Admitted on account of Thrombocytopenia, 5 on admission No evidence of fever or bleeding He rceived a unit of platelets, repeat 15 Spoke with Wheel Braider, outpatient follow up (2) Anemia: Hb 6.3 on admission Received a unit of blood repeat Hb 7.3 Discharge home, to follow up with hematology (3) Severe thrombocytopenia: (4) AML (acute myeloblastic leukemia): Outpatient follow up with hematology Plan d/c home Total Time Total Time Spent Total Time Spent (In Minutes): 35 Discharge Plan Discharge Items Patient Disposition: Home - Self-Care Reason For Visit: THROMBOCYTOPENIA, PANCYTOPENIA Discharge Diagnosis: Pancytopenia Activity: Resume your previous activity Non-emergency contact: Primary Care Provider and Oncologist Call non-emergency contact if: you have any medication questions Follow-up/Referrals: Dewayne Stout MD [Primary Care Provider] - Diet: Regular Addtl Attending Provider Instructions: please make appointment to follow up with your safety teacher and Oncologist Pending Studies at Discharge: No Stand-Alone Forms: My [facility], Smoking Cessation Medications and DC Order Prescriptions: Continued voriconazole [Vfend] 200 mg tablet 200 mg PO BID Qty: 14 0RF allopurinol 300 mg tablet 300 mg PO QAM Qty: 90 3RF melatonin 3 mg tablet 6 mg PO HS Qty: 60 0RF metoprolol succinate 25 mg tablet extended release 24 hr 25 mg PO DAILY Qty: 30 2RF Label Comments: hold for systolic below 100 ascorbic acid (vitamin C) 500 mg tablet 500 mg PO BID nitroglycerin 0.4 mg tablet, sublingual 0.4 mg SL Q5M PRN (Reason: Chest Pain) Qty: 1 Rx Instructions: NEEDED FOR CHEST PAIN : ONE TABLET UNDER THE TONGUE EVERY 5 MINUTES UP TO THREE DOSES. sodium chloride 1,000 mg tablet,soluble 1,000 mg PO BID acyclovir 400 mg tablet 400 mg PO AMHS polyethylene glycol 3350 17 gram Powder In Packet 17 g PO DAILY PRN (Reason: Constipation) cyanocobalamin (vitamin B-12) 1,000 mcg Capsule 1,000 mcg PO QAM ondansetron 4 mg Tablet,Disintegrating 4 mg PO Q6H PRN (Reason: Nausea) levofloxacin 500 mg Tablet 500 mg PO QAM Qty: 7 0RF metronidazole 500 mg tablet 500 mg PO BID Qty: 11 0RF Discharge Orders: Discharge Order (Routine); Ordered 05/02/22 Ordered By: Sam Forbes Admission Data Admit Date/Time: 05/01/22 23:23 Attending Provider: Sam Forbes Admit Provider: Ruel Russell Primary Care Provider: Dewayne Stout Other Providers: Ruel Russell ; Elaine Burgos Coding Level of Care Code HOSP INP/OBS DISCH >30 MIN Diagnoses Pancytopenia D61.818 Anemia D64.9 Anemia type: unspecified type Severe thrombocytopenia D69.6 AML (acute myeloblastic leukemia) C92.00 Leukemia Active/Remission status: without remission Time Spent (min) 35
[2022-05-02] MEDS ORDERED: MELATONIN 3 MG TAB PO SCH (21:00)
--- NOTE | 2022-05-03 19:07 | Electrocardiogram Report ---
Test Reason : Blood Pressure : / mmHG Vent. Rate : 124 BPM Atrial Rate : 124 BPM P-R Int : 128 ms QRS Dur : 134 ms QT Int : 344 ms P-R-T Axes : 021 -65 058 degrees QTc Int : 494 ms Poor data quality, interpretation may be adversely affected Sinus tachycardia Right bundle branch block Left anterior fascicular block Bifascicular block Minimal voltage criteria for LVH, may be normal variant Abnormal ECG When compared with ECG of 10-APR-2022 12:22, No significant change Confirmed by Laith Lacy ([id number]) on 05/03/2022 7:06:51 PM Referred By: Elaine Burgos Confirmed By:Laith Lacy
--- NOTE | 2022-05-04 05:55 | Electrocardiogram Report ---
Test Reason : Blood Pressure : / mmHG Vent. Rate : 121 BPM Atrial Rate : 121 BPM P-R Int : 146 ms QRS Dur : 146 ms QT Int : 364 ms P-R-T Axes : -13 -62 048 degrees QTc Int : 516 ms Sinus tachycardia Right bundle branch block Left anterior fascicular block Bifascicular block Abnormal ECG When compared with ECG of 01-MAY-2022 20:24, No significant change was found Confirmed by Laith Lacy ([id number]) on 05/04/2022 5:55:16 AM Referred By: Elaine Burgos Confirmed By:Laith Lacy
--- NOTE | 2022-05-04 20:53 | Emergency Department Note ---
Impression & Plan Severe thrombocytopenia, AML (acute myeloblastic leukemia), Anemia ED Provider Note CHIEF COMPLAINT: Low blood and platelets, sent by doctor HISTORY OF PRESENT ILLNESS: This 76-year-old male patient with a history of AML presents to the emergency department with abnormal laboratory work significant for anemia and thrombocytopenia. Patient's states that their oncologist referred him to the emergency department this evening. Patient has received multiple blood transfusions in the past. He denies any bleeding at this time. He states he does not take blood thinners and is followed by Dr. [facility]. Patient has been short of breath and tired. He denies any f jared, vomiting or diarrhea. REVIEW OF SYSTEMS: A review of systems was performed with positives and pertinent negatives listed in the history of present illness. 10 systems were reviewed and are otherwise negative. ALLERGIES: see below MEDICATIONS: see below PMH: see below SOCIAL HISTORY: see below DDx: Infection, dehydration, metabolic abnormality, hypo/hyperglycemia, electrolyte disturbance, anemia, hypoxia, cardiac sources, intracerebral event, toxicologic, neurologic, as well as other pathologies. PHYSICAL EXAM: Vital signs reviewed. General: Chronically ill-appearing 76-year-old male, thin and frail, in no significant distress. HEENT: No scleral icterus, PERRLA, neck supple. Moist mucous membranes Cardiovascular: Tachycardic and regular, no extra sounds. Pulmonary: Clear to auscultation bilaterally, normal work of breathing. Abdomen: Soft, nontender, nondistended, positive bowel sounds. Musculoskeletal: Atraumatic, no peripheral edema. Neurologic: Patient awake alert and oriented x 3, speech is clear Skin: Warm, dry, no rash EMERGENCY DEPARTMENT COURSE/MDM: This patient was evaluated and appeared to be in no significant distress. IV access was obtained and laboratory work was drawn. Patient was noted to be tachycardic and weak on exam. External medical records were reviewed. The patient's laboratory work that brought him to the emergency department was not really available however previous labs are in our system. He has been thrombocytopenic recurrently. Hemoglobin today is 7.5 with a platelet count of 5000. Patient was consented for blood transfusion. Given his multiple medical complications, symptomatology and thrombocytopenia, patient was felt to be best served with admission and blood transfusion. He and his agreed with plan. Patient's states he does have antibodies in his blood and he needs "special blood shipped in." Hospitalist service was made aware of this patient's case and will evaluate him for further management. MONITORING: An order for cardiac monitoring was placed and the patient is noted to be in a sinus tachycardia at 104 beats per minute. EKG: To my interpretation reveals sinus tachycardia 124 bpm. Right bundle branch block, left anterior fascicular block, no PVC, no PAC. LVH. No significant change by compared to April 10, 2022 DISPOSITION: Admission Past Med/Surg History Medical History Advanced care planning/counseling discussion AML (acute myeloblastic leukemia) Aortic stenosis Arteriosclerotic coronary artery disease Benign enlargement of prostate Carotid artery plaque Dyslipidemia Hypertension Hypotension Palliative care encounter Past myocardial infarction Sepsis Syncope Tachycardia Tubulovillous adenoma of colon Surgical History History of cardiac cath cath stent 1 first obtuse marginal branch, type bare metal cath stent 2 first saphenous vein graft, type drug-eluting History of colonoscopy History of coronary artery bypass graft x 3 History of hemorrhoidectomy S/P CABG x 3 Family History Brother Coronary heart disease 5 brothers Father Myocardial infarction Denies family history of Ovarian cancer Prostate cancer Breast cancer Colorectal cancer Lung disease Social History Smoking Status: Never smoker Tobacco Type: Cigarettes Age Started Using Tobacco: 14; Age Quit Using Tobacco: 21; packs per day: 1; Second Hand Exposure: No; Hx Alcohol Use: No Hx Substance Use: No Preferred Language: Mosotho Communication Ability: Effective Visual Impairment: Limited Hearing Ability: Use of Hearing Aid Corporate Strategy Analyst Required: No Beliefs That Will Affect Care: None marital status: Current Living Situation: Spouse Current Living Situation Comment: Lives with in a house has a hospital bed downstairs current occupational status: employed 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 How many Children do You have: 4 Feels Safe at Home: Yes Safety Concerns: Feels Safe At This Time Childhood Exposure to Second-Hand Smoke: No caffeine: Yes (cup of coffee in morning ) Dental Care, Regularly: No Physical Activity Frequency: Daily Seatbelt Use: always Sunscreen Use: Yes Assistive Devices: Walker Allergies Allergies Allergy/AdvReac Type Severity Reaction Status Date / Time diphenhydramine AdvReac Severe ITCHING Verified 05/05/22 11:10 [From Benadryl] losartan AdvReac Intermediate FATIGUE, Verified 05/05/22 11:10 CHEST PAIN oxycodone [From Percocet] AdvReac Intermediate Confusion Verified 05/05/22 11:10 lisinopril AdvReac Mild FATIGUE Verified 05/05/22 11:10 Home Meds Home Medications Medication Instructions Recorded Confirmed ascorbic acid (vitamin C) 500 mg 500 mg PO BID 02/11/19 05/03/22 tablet nitroglycerin 0.4 mg sublingual 0.4 mg sublingual Q5M PRN Chest 02/11/19 05/03/22 tablet Pain #1 tab cyanocobalamin (vitamin B-12) 1,000 mcg PO QAM 12/12/21 05/03/22 1,000 mcg capsule ondansetron 4 mg disintegrating 4 mg PO Q6H PRN Nausea 12/12/21 05/03/22 tablet polyethylene glycol 3350 17 gram 17 g PO DAILY PRN Constipation 12/12/21 05/03/22 oral powder packet acyclovir 400 mg tablet 400 mg PO [facility]HS 05/01/22 05/03/22 sodium chloride 1,000 mg soluble 1,000 mg PO BID 05/01/22 05/03/22 tablet Previous Rx's Medication Instructions Recorded levofloxacin 500 mg tablet 500 mg PO QAM #7 tabs 12/15/21 voriconazole 200 mg tablet (Vfend) 200 mg PO BID #14 tabs 01/19/22 allopurinol 300 mg tablet 300 mg PO QAM #90 tabs 02/01/22 melatonin 3 mg tablet 6 mg PO HS #60 tabs 02/10/22 metoprolol succinate 25 mg 25 mg PO DAILY #30 tabs 04/27/22 tablet,extended release 24 hr Results & Data (ED) Home Medications Current Medication List: was personally reviewed by me Laboratory Data Attestation: I reviewed the patient's lab results. 05/02/22 15:08 05/02/22 04:32 Lab Results 05/01/22 05/01/22 05/01/22 Range/Units 20:10 20:20 20:20 WBC 2.19 L (4.8-10.8) K/ul RBC 2.45 L (4.63-6.08) M/uL Hgb 7.3 L (14.0-18.0) g/dl Hct 21.5 L (40.1-51.0) % MCV 87.8 (80.0-100.0) fL MCH 29.8 (25.0-34.0) pg MCHC 34.0 (32.0-36.0) g/dL RDW Std Deviation 46.1 (36.4-46.3) fL RDW Coeff of Marty 14.8 H (11.5-14.5) % Plt Count 5 L* (130-400) K/uL Immature Gran % (Auto) 0.0 % Neut % (Auto) 31.0 % Lymph % (Auto) 23.3 % [place] % (Auto) 45.7 % Eos % (Auto) 0.0 % Baso % (Auto) 0.0 % Neut # (Auto) 0.68 L* (1.4-6.5) K/uL Lymph # (Auto) 0.51 L (1.2-3.4) K/uL [place] # (Auto) 1.00 H (0.24-0.82) K/uL Eos # (Auto) 0.00 (0-0.50) K/uL Baso # (Auto) 0.00 (0-0.2) K/uL Immature Gran # (Auto) 0.00 (0.00-0.02) K/uL Absolute Nucleated RBC 0.02 H (0-0) K/uL Nucleated RBC % (auto) 0.9 % Platelet Estimate Signific. Decreased L (Normal) PT 12.4 H (9.0-12.0) Seconds INR 1.2 H (0.9-1.1) APTT 31.0 (21.0-31.0) Seconds PTT Ratio 1.1 Sodium (136-145) mmol/L Potassium (3.5-5.1) mmol/L Chloride (98-107) mmol/L Carbon Dioxide (21-32) mmol/L Anion Gap (3-11) BUN (6-23) mg/dl Creatinine (0.6-1.4) mg/dl Est Cr Clr Drug Dosing ml/min Est GFR ( Amer) ml/min Est GFR (Non-Af Amer) ml/min BUN/Creatinine Ratio (10-20) Glucose (70-99(Fasting)) mg/dl Calcium (8.5-10.1) mg/dl Total Bilirubin (0.2-1.0) mg/dl AST (13-39) U/L ALT (7-52) U/L Alkaline Phosphatase (34-104) U/L Total Protein (6.0-8.3) gm/dl Albumin (3.4-5.0) gm/dl Globulin (2.5-4.0) gm/dl Albumin/Globulin Ratio (0.9-2) Blood Type A Positive Antibody Screen NEGATIVE Crossmatch See Detail 05/01/22 Range/Units 20:20 WBC (4.8-10.8) K/ul RBC (4.63-6.08) M/uL Hgb (14.0-18.0) g/dl Hct (40.1-51.0) % MCV (80.0-100.0) fL MCH (25.0-34.0) pg MCHC (32.0-36.0) g/dL RDW Std Deviation (36.4-46.3) fL RDW Coeff of Marty (11.5-14.5) % Plt Count (130-400) K/uL Immature Gran % (Auto) % Neut % (Auto) % Lymph % (Auto) % [place] % (Auto) % Eos % (Auto) % Baso % (Auto) % Neut # (Auto) (1.4-6.5) K/uL Lymph # (Auto) (1.2-3.4) K/uL [place] # (Auto) (0.24-0.82) K/uL Eos # (Auto) (0-0.50) K/uL Baso # (Auto) (0-0.2) K/uL Immature Gran # (Auto) (0.00-0.02) K/uL Absolute Nucleated RBC (0-0) K/uL Nucleated RBC % (auto) % Platelet Estimate (Normal) PT (9.0-12.0) Seconds INR (0.9-1.1) APTT (21.0-31.0) Seconds PTT Ratio Sodium 131 L (136-145) mmol/L Potassium 4.4 (3.5-5.1) mmol/L Chloride 101 (98-107) mmol/L Carbon Dioxide 23 (21-32) mmol/L Anion Gap 7 (3-11) BUN 14 (6-23) mg/dl Creatinine 0.55 L (0.6-1.4) mg/dl Est Cr Clr Drug Dosing 107.1 ml/min Est GFR ( Amer) 115.7 ml/min Est GFR (Non-Af Amer) 99.8 ml/min BUN/Creatinine Ratio 25.5 H (10-20) Glucose 123 H (70-99(Fasting)) mg/dl Calcium 8.5 (8.5-10.1) mg/dl Total Bilirubin 0.3 (0.2-1.0) mg/dl AST 13 (13-39) U/L ALT 6 L (7-52) U/L Alkaline Phosphatase 53 (34-104) U/L Total Protein 6.0 (6.0-8.3) gm/dl Albumin 2.8 L (3.4-5.0) gm/dl Globulin 3.2 (2.5-4.0) gm/dl Albumin/Globulin Ratio 0.9 (0.9-2) Blood Type Antibody Screen Crossmatch Administered Medications Discontinued Medications Acyclovir (Acyclovir 400 Mg Tab) 400 mg PO ONE ONE Stop: 05/01/22 23:29 Last Admin: 05/02/22 01:09 Dose: 400 mg Documented By: BARBARA Acyclovir (Acyclovir 400 Mg Tab) 400 mg PO BID [facility] Stop: 06/01/22 08:59 Last Admin: 05/02/22 09:36 Dose: 400 mg Documented By: YVONNE Allopurinol (Allopurinol 300 Mg Tab) 300 mg PO QAM [facility] Stop: 06/01/22 08:59 Last Admin: 05/02/22 09:36 Dose: 300 mg Documented By: NMS Ascorbic Acid (Ascorbic Acid 500 Mg Tab) 500 mg PO BID [facility] Stop: 06/01/22 08:59 Last Admin: 05/02/22 09:36 Dose: 500 mg Documented By: YVONNE Cyanocobalamin (Cyanocobalamin (B-12) 500 Mcg Tablet) 1,000 mcg PO QAM [facility] Stop: 06/01/22 08:59 Last Admin: 05/02/22 09:36 Dose: 1,000 mcg Documented By: YVONNE Metoprolol Succinate (Metoprolol Succ 25mg Ext Rel Tab) 12.5 mg PO BID [facility] Stop: 06/01/22 08:59 Last Admin: 05/02/22 09:36 Dose: 12.5 mg Documented By: YVONNE Sodium Chloride (Sodium Chloride 1 Gm Tablet) 1 gm PO BID [facility] Stop: 06/01/22 08:59 Last Admin: 05/02/22 09:37 Dose: 1 gm Documented By: YVONNE Voriconazole (Voriconazole 200 Mg Tablet) 200 mg PO ONE ONE Stop: 05/01/22 23:30 Last Admin: 05/02/22 01:10 Dose: 200 mg Documented By: BARBARA Voriconazole (Voriconazole 200 Mg Tablet) 200 mg PO BID [facility] Stop: 06/01/22 08:59 Last Admin: 05/02/22 09:37 Dose: 200 mg Documented By: YVONNE Discharge Plan Visit Data Chief Complaint: Referred by Doctor Stated Complaint: REF BY POONAM KEYES LOW PLATLIDS ED Provider: Mabel Dalton Discharge Problem: Severe thrombocytopenia, AML (acute myeloblastic leukemia), Anemia Patient Disposition: Admitted As Inpatient Discharge Instructions Interventions: ED Discharge Assessment Last Done: 05/02/22 00:48 : AML (acute myeloblastic leukemia) Qualifiers: Leukemia Active/Remission status: without remission Qualified Code(s): C92.00 - Acute myeloblastic leukemia, not having achieved remission Anemia Qualifiers: Anemia type: bone marrow failure Bone marrow failure anemia type: pancytopenia, antineoplastic chemotherapy-induced Qualified Code(s): D61.810 - Antineoplastic chemotherapy induced pancytopenia
== END 2022-05-02 17:30 | disposition home or self-care (01) | DRG 835 ==
LOC: ED 19:48 → SUATTDRO 23:23 → EDINP 23:23